=== PATIENT | male | born 1950 | race Caucasian/White ===

== ENCOUNTER → 2017-05-26 10:11 | Outpatient (CLI) | payer MEDICARE, OTHER, SELFPAY ==
[2017-05-26 12:27] LABS: ALB/GLOB Ratio 1.1 RATIO (0.9-2.4); AST(SGOT) 25 U/L (15-37); Alanine Aminotransfer ALT/SGPT 48 U/L (12-78); Albumin, Serum 4.1 g/dL (3.4-5.0); Alkaline Phosphatase 90 U/L (45-117); Anion Gap 8 (5-15); BUN 21 mg/dL (7-18); BUN/Creat Ratio 21.3 RATIO (10-20); Calcium,Total 8.4 mg/dL (8.5-10.1); Chloride 106 mmol/L (98-107); Cholesterol 196 mg/dL (200); Creatinine, Serum 0.98 mg/dL (0.70-1.30); EST Glomerular Filtration Rate 81 mL/min (>60); Est Glom Filt Rate - Afr Amer 98 mL/min (>60); Globulin 3.6 g/dL (2.2-4.2); Glucose 97 mg/dL (70-110); High Density Lipoprotein 41 mg/dL; Potassium 4.1 mmol/L (3.5-5.1); Protein, Total 7.7 g/dL (6.4-8.2); Sodium Level 140 mmol/L (136-145); Triglycerides 81 mg/dL; Very Low Density Lipoprotein 16 mg/dL (5-40)
[2017-05-26 12:28] LABS: Hemoglobin A1c 6.3 % (4.2-6.3)
[2017-05-26 13:22] LABS: Microalbumin,Random Urine 15.2 mg/L (NO RANGE EST.); Microalbumin:Creatinine Ratio 30.5 mg/g CRE (<30 mg/g CRE)
== END ==
PROVIDERS: Visit Provider Family Medicine
DX: E88.81 Metabolic syndrome and other insulin resistance (principal); E78.00 Pure hypercholesterolemia, unspecified; I10 Essential (primary) hypertension
CPT/HCPCS: 36415; 80053; 80061; 82043; 82570; 83036

== ENCOUNTER → 2018-02-17 10:14 | Outpatient (CLI) | payer MEDICARE, SELFPAY ==
[2018-02-17 12:40] LABS: AST(SGOT) 22 U/L (15-37); Alanine Aminotransfer ALT/SGPT 39 U/L (16-61); Albumin, Serum 4.1 g/dL (3.2-5.0); Alkaline Phosphatase 71 U/L (45-117); Anion Gap 7 (5-15); BUN 25 mg/dL (7-18); BUN/Creat Ratio 23.1 RATIO (10-20); Calcium,Total 8.8 mg/dL (8.5-10.1); Chloride 103 mmol/L (98-107); Cholesterol 201 mg/dL (200); Creatinine, Serum 1.08 mg/dL (0.70-1.30); EST Glomerular Filtration Rate 72 mL/min (>60); Est Glom Filt Rate - Afr Amer 87 mL/min (>60); Free T3 3.2 pg/mL (2.18-3.98); Globulin 4.1 g/dL (2.2-4.2); Glucose 96 mg/dL (74-106); High Density Lipoprotein 38 mg/dL; Potassium 4.3 mmol/L (3.5-5.1); Protein, Total 8.2 g/dL (6.4-8.2); Sodium Level 139 mmol/L (136-145); T4 Free Direct 0.76 ng/dL (0.76-1.46); Thyroid Stim Hormone (TSH) 2.51 uIU/mL (0.358-3.74); Triglycerides 111 mg/dL; Very Low Density Lipoprotein 22 mg/dL (5-40)
[2018-02-17 18:18] LABS: PSA,Total - Annual Screen 1.14 ng/mL (0.00-4.00)
== END ==
PROVIDERS: Family Provider Family Medicine; PCP Family Medicine; Visit Provider Family Medicine
DX: E88.81 Metabolic syndrome and other insulin resistance (principal); Z12.5 Encounter for screening for malignant neoplasm of prostate
CPT/HCPCS: 36415; 80053; 80061; 83036; 84153; 84403; 84439; 84443; 84481; G0103

== ENCOUNTER 2018-09-21 09:30 | Outpatient (RCR) | payer MEDICARE, OTHER, SELFPAY ==
--- NOTE | 2018-08-31 16:32 | HP.PTEVAL ---
Patient's Visit Information DONELL HERRMANN is a 67 year old M referred to Physical Therapy by Guilherme Erickson MD with a diagnosis of Left Shoulder Pain. Date of Evaluation: 08/31/18 Physical Therapist: Blanca Olguin DPT - Visit Plan Frequency: 2x /Week Duration: 4 Weeks Plan: Scapular s/s and Ultrasound as needed - Subjective Findings: A couple of years ago he fell on the ice and it got better- a couple of months ago he started his chainsaw and it kicked pretty hard. Now anything out to the side bothers him. Pain is located in the top of the shoulder- radiates into the deltoid- no pain into the neck. Decribes the pain as dull and achy. Agg: moving it out to the side. Worst: 4/10 Best: 0/10 Eases: getting it out of the range. Reaching out the window is the worst. No N/T in the hands. No increase in SHERMAN, blurred vision, dizziness. Does not take pain meds but will take Aleve every once in awhile. Sleep- not disturbed- side sleeper. 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 Left hand dominate. No problems with finger dexterity or antisqueak chalker strength. No imagines- no injection. PMhx: HTN Meds: losartin, niacin, D3, vitamin E - Objective Posture: FH, RS, Increased kyphosis. Gait: no deviation noted- good arm swing and trunk rotation. Palpation: tender along bicipital groove and tip of the acromion. ROM: WFL in all planes but reports pain at end range flexion/abduction, Cervical: Wfl. Strength: Scap: fair minus, Shoulder flexion- 4-/5, Abd: 4-/5 ir: 4+/5, ER:4+/5, Extn: 4+/5 Elbow: 5/5, Store Specialist: equal. Special Test: impingment: positive, empty can: positive. Sensation: wfl - Goals Goal 1:: Patient will be I with HEP and progression Goal Time Frame: 4-6 Weeks Goal 2:: Patient will maintain proper posture t/o tx session to demo increased scap s/s. Goal Time Frame: 4-6 Weeks Goal 3:: Patient will demo full AROM of the left shoulder with 0/10 pain Goal Time Frame: 4-6 Weeks Goal 4:: Patient will report 0/10 for 1 week Goal Time Frame: 4-6 Weeks - Rehabilitation Potential Physical Therapy Diagnosis: Patient presents with hypomobility- he has decreased ROM, strength and muscular endurance leading to poor posture and increased impingment of the left shoulder Rehabilitation Potential: Good - Anticipated Interventions Patient/Client Instruction: Educate patient on: Benefits of Fitness Program Therapeutic Exercise to Include: Strength training, Endurance training, Coordination, Agility training, Body mechanics, Postural training, Passive ROM, Active ROM, Scapular Strength/Stabilization For the Purpose of:: To improve muscle performance and motor function TENS: Yes Cryotherapy (ice pack, ice massage): Yes Thermo therapy (hot pack): Yes Ultrasound (thermal/non thermal): Yes Thank you for the opportunity to evaluate your patient. For Medicare and Medicare HMO plans, please review the plan of care and approve it. It will need to be FAXED BACK to us at [phone] for Medicare purposes. For Medicare only, by signing this I certify the plan of care. Please let me know if there are questions or concerns regarding this plan of care. Physician Signature: Date:
--- NOTE | 2018-09-21 09:21 | HP.PTDCSUM ---
HP - PT D/C Summary It has been my pleasure to treat DONELL HERRMANN under orders from Guliherme Erickson MD, for the diagnosis of Left Shoulder Pain for a total of 7 visit(s). Discharge Date: Please see the following information for a summary of their discharge status. - Subjective Subjective: Patient reports that the shoulder is good- was able to unload a truck of stones with a shovel- still has some discomfort with weather. Was able to reach out to get something out of the drive through and had no pain. - Overall Improvement % Improvement: 100 - Objective Objective/Function: Posture: FH, RS, mild kyphosis. Gait: no deviation noted- good arm swing and trunk rotation. Palpation: not tender. ROM: WFL in all planes, Cervical: Wfl. Strength: Scap: fair minus, Shoulder flexion- 4+/5, Abd: 4+/5 ir: 4+/5, ER:4+/5, Extn: 4+/5 Elbow: 5/5, Certified Lactation Educator: equal. Special Test: impingment: positive, empty can: positive. Sensation: wfl - Goals Goal 1:: Patient will be I with HEP and progression Goal Progress: Goal Met Goal 2:: Patient will maintain proper posture t/o tx session to demo increased scap s/s. Goal Progress: Progressing Goal 3:: Patient will demo full AROM of the left shoulder with 0/10 pain Goal Progress: Goal Met Goal 4:: Patient will report 0/10 for 1 week Goal Progress: Progressing - Plan Plan: Discharge to I HEP - D/C Information If there are questions or concerns regarding this patient's physical therapy, please feel free to call me at [phone]. Thank you for the referral of this patient. Sincerely, Blanca Olguin DPT
== END 2018-09-21 19:00 | disposition home or self-care (01) ==
LOC: PT 09:30
PROVIDERS: Family Provider Family Medicine; PCP Family Medicine; Referring Provider Family Medicine; Visit Provider Family Medicine
DX: S43.402D Unspecified sprain of left shoulder joint, subsequent encounter (principal); M25.512 Pain in left shoulder; M75.102 Unspecified rotator cuff tear or rupture of left shoulder, not specified as traumatic
CPT/HCPCS: 97110; 97161; 97164

== ENCOUNTER → 2018-11-22 09:46 | Outpatient (CLI) | payer MEDICARE, OTHER, SELFPAY ==
[2017-04-06 06:06] VITALS: BMI 35.9
[2018-11-22 12:55] LABS: Hemoglobin A1c 6.7 % (4.2-6.3)
[2018-11-22 13:04] LABS: AST(SGOT) 24 U/L (15-37); Alanine Aminotransfer ALT/SGPT 32 U/L (16-61); Alkaline Phosphatase 56 U/L (45-117); Anion Gap 9 (5-15); BUN 27 mg/dL (7-18); BUN/Creat Ratio 23.3 RATIO (10-20); Calcium,Total 8.6 mg/dL (8.5-10.1); Chloride 104 mmol/L (98-107); Cholesterol 146 mg/dL (200); Creatinine, Serum 1.16 mg/dL (0.70-1.30); EST Glomerular Filtration Rate 66 mL/min (>60); Est Glom Filt Rate - Afr Amer 80 mL/min (>60); Free T3 3.3 pg/mL (2.18-3.98); Globulin 4.1 g/dL (2.2-4.2); Glucose 89 mg/dL (74-106); High Density Lipoprotein 33 mg/dL; Potassium 3.9 mmol/L (3.5-5.1); Protein, Total 8.1 g/dL (6.4-8.2); Sodium Level 140 mmol/L (136-145); T4 Free Direct 0.77 ng/dL (0.76-1.46); Thyroid Stim Hormone (TSH) 2.44 uIU/mL (0.358-3.74); Triglycerides 73 mg/dL; Very Low Density Lipoprotein 15 mg/dL (5-40)
== END ==
PROVIDERS: Family Provider Family Medicine; PCP Family Medicine; Referring Provider Family Medicine; Visit Provider Family Medicine
DX: E78.00 Pure hypercholesterolemia, unspecified (principal); K76.0 Fatty (change of) liver, not elsewhere classified; R73.03 Prediabetes
CPT/HCPCS: 36415; 80053; 80061; 83036; 84439; 84443; 84481

== ENCOUNTER → 2019-02-19 08:49 | Outpatient (CLI) | payer MEDICARE, OTHER, SELFPAY ==
[2017-04-06 06:06] VITALS: BMI 35.9
[2019-02-19 10:27] LABS: PSA,Total - Annual Screen 0.91 ng/mL (0.00-4.00)
[2019-02-19 10:32] LABS: Hemoglobin A1c 6.2 % (4.2-6.3)
== END ==
PROVIDERS: Family Provider Family Medicine; PCP Family Medicine; Referring Provider Family Medicine; Visit Provider Family Medicine
DX: Z12.5 Encounter for screening for malignant neoplasm of prostate (principal); K76.0 Fatty (change of) liver, not elsewhere classified
CPT/HCPCS: 36415; 83036; 84153; G0103

== ENCOUNTER → 2019-09-27 07:38 | Outpatient (CLI) | payer MEDICARE, OTHER, SELFPAY ==
[2017-04-06 06:06] VITALS: BMI 35.9
[2019-09-27 10:22] LABS: Hemoglobin A1c 6.2 % (3.8-5.6)
[2019-09-27 10:25] LABS: Albumin, Serum 3.8 g/dL (3.2-5.0); BUN 34 mg/dL (7-18); BUN/Creat Ratio 28.8 RATIO (10-20); Creatinine, Serum 1.18 mg/dL (0.70-1.30); EST Glomerular Filtration Rate 65 mL/min (>60); Est Glom Filt Rate - Afr Amer 79 mL/min (>60); Globulin 5.4 g/dL (2.2-4.2); Glucose 101 mg/dL (74-106); Protein, Total 9.2 g/dL (6.4-8.2)
[2019-09-27 10:26] LABS: ALB/GLOB Ratio 0.7 RATIO (0.9-2.4); AST(SGOT) 24 U/L (15-37); Alanine Aminotransfer ALT/SGPT 26 U/L (16-61); Alkaline Phosphatase 51 U/L (45-117); Anion Gap 5 (5-15); Calcium,Total 8.6 mg/dL (8.5-10.1); Chloride 104 mmol/L (98-107); Cholesterol 171 mg/dL (200); High Density Lipoprotein 34 mg/dL; Microalbumin,Random Urine 14.9 mg/L (NO RANGE EST.); Microalbumin:Creatinine Ratio 14.2 mg/g CRE (<30 mg/g CRE); Potassium 3.6 mmol/L (3.5-5.1); Sodium Level 137 mmol/L (136-145); Thyroid Stim Hormone (TSH) 4.17 uIU/mL (0.358-3.74); Triglycerides 113 mg/dL; Very Low Density Lipoprotein 23 mg/dL (5-40)
== END ==
PROVIDERS: PCP Family Medicine; Referring Provider Family Medicine; Visit Provider Family Medicine
DX: E88.81 Metabolic syndrome and other insulin resistance (principal); I10 Essential (primary) hypertension
CPT/HCPCS: 36415; 80053; 80061; 82043; 82570; 83036; 84443

== ENCOUNTER → 2020-03-25 08:53 | Outpatient (CLI) | payer MEDICARE, OTHER, SELFPAY ==
[2017-04-06 06:06] VITALS: BMI 35.9
[2020-03-25 10:21] LABS: Absolute Lymphocyte Count 1.46 X10^3/uL (0.83-4.51); Absolute Neutrophil Count 4.7 X10^3/uL (2.0-7.7); Basophil# 0.02 X10^3/uL; Basophil% 0.3 % (0-1); Eosinophils% 2.7 % (0-5); Hematocrit 42.5 % (40-54); Hemoglobin 13.4 g/dL (13.0-16.5); Lymphocyte # 1.46 X10^3/ul (4.0); Lymphocyte % 19.5 % (19-41); Mean Corp Hgb Conc 31.5 g/dL (32-36); Mean Corpuscular Volume 98.4 fL (80-94); Mean Platelet Vol. 10.9 fl (6.2-12.0); Monocyte# 1.05 X10^3/uL; NRBC Flagged by Analyzer 0 % (0-5); Neutrophil # 4.72 X10^3/uL (2.7-7.7); Neutrophil % 63.1 % (47-70); Platelet Count 238 K/mm3 (150-450); RBC Distribution Width CV 14.2 % (11.6-14.6); RBC Distribution Width SD 51.3 fl (35.1-43.9); Red Blood Count 4.32 M/mm3 (4.6-6.2); White Blood Count 7.5 K/mm3 (4.4-11.0)
[2020-03-25 10:55] LABS: T4 Free Direct 0.81 ng/dL (0.76-1.46); Thyroid Stim Hormone (TSH) 4.85 uIU/mL (0.358-3.74)
== END ==
PROVIDERS: PCP Family Medicine; Referring Provider Family Medicine; Visit Provider Family Medicine
DX: E88.81 Metabolic syndrome and other insulin resistance (principal); R79.89 Other specified abnormal findings of blood chemistry
CPT/HCPCS: 36415; 84439; 84443; 84481; 85025

== ENCOUNTER → 2020-04-04 10:43 | Outpatient (CLI) | payer MEDICARE, OTHER, SELFPAY ==
[2017-04-06 06:06] VITALS: BMI 35.9
[2020-04-04 13:01] LABS: PSA,Total - Annual Screen 1.14 ng/mL (0.00-4.00)
== END ==
PROVIDERS: PCP Family Medicine; Referring Provider Family Medicine; Visit Provider Family Medicine
DX: Z12.5 Encounter for screening for malignant neoplasm of prostate (principal)
CPT/HCPCS: 36415; 84153; G0103

== ENCOUNTER → 2020-07-07 10:20 | Outpatient (CLI) | payer BC, SELFPAY ==
[2020-07-07 13:07] LABS: Free T3 2.7 pg/mL (2.18-3.98); T4 Free Direct 0.83 ng/dL (0.76-1.46); Thyroid Stim Hormone (TSH) 3.28 uIU/mL (0.358-3.74)
== END ==
PROVIDERS: PCP Family Medicine; Referring Provider Family Medicine; Visit Provider Family Medicine
DX: R79.89 Other specified abnormal findings of blood chemistry (principal)
CPT/HCPCS: 36415; 84439; 84443; 84481

== ENCOUNTER → 2020-10-02 08:28 | Outpatient (CLI) | payer BC, SELFPAY ==
[2017-04-06 06:06] VITALS: BMI 35.9
[2020-10-02 10:26] LABS: Absolute Lymphocyte Count 1.39 X10^3/uL (0.83-4.51); Absolute Neutrophil Count 4.4 X10^3/uL (2.0-7.7); Basophil# 0.02 X10^3/uL; Basophil% 0.3 % (0-1); Eosinophil# 0.17 X10^3/uL; Eosinophils% 2.5 % (0-5); Hematocrit 42.4 % (40-54); Hemoglobin 13.4 g/dL (13.0-16.5); Lymphocyte # 1.39 X10^3/ul (0.83-4.51); Lymphocyte % 20.4 % (19-41); Mean Corp Hgb Conc 31.6 g/dL (32-36); Mean Corpuscular Hgb 31.2 pg (27.0-32.0); Mean Corpuscular Volume 98.8 fL (80-94); Mean Platelet Vol. 11.5 fl (6.2-12.0); Monocyte# 0.82 X10^3/uL; Monocyte% 12.1 % (0-10); NRBC Flagged by Analyzer 0 % (0-5); Neutrophil # 4.37 X10^3/uL (2.7-7.7); Neutrophil % 64.3 % (47-70); Platelet Count 186 K/mm3 (150-450); RBC Distribution Width CV 14.6 % (11.6-14.6); RBC Distribution Width SD 52.8 fl (35.1-43.9); Red Blood Count 4.29 M/mm3 (4.6-6.2); White Blood Count 6.8 K/mm3 (4.4-11.0)
[2020-10-02 10:47] LABS: Microalbumin:Creatinine Ratio 19.3 mg/g CRE (<30 mg/g CRE)
[2020-10-02 11:00] LABS: ALB/GLOB Ratio 0.8 RATIO (0.9-2.4); AST(SGOT) 26 U/L (15-37); Alanine Aminotransfer ALT/SGPT 33 U/L (16-61); Alkaline Phosphatase 52 U/L (45-117); Anion Gap 7 (5-15); BUN 31 mg/dL (7-18); BUN/Creat Ratio 27.4 RATIO (10-20); Calcium,Total 8.5 mg/dL (8.5-10.1); Chloride 103 mmol/L (98-107); Cholesterol 152 mg/dL (200); Creatinine, Serum 1.13 mg/dL (0.70-1.30); EST Glomerular Filtration Rate 68 mL/min (>60); Est Glom Filt Rate - Afr Amer 82 mL/min (>60); Free T3 2.8 pg/mL (2.18-3.98); Globulin 4.8 g/dL (2.2-4.2); Glucose 99 mg/dL (74-106); High Density Lipoprotein 34 mg/dL; Potassium 3.7 mmol/L (3.5-5.1); Protein, Total 8.8 g/dL (6.4-8.2); Sodium Level 135 mmol/L (136-145); T4 Free Direct 0.67 ng/dL (0.76-1.46); Thyroid Stim Hormone (TSH) 3.21 uIU/mL (0.358-3.74); Triglycerides 93 mg/dL; Very Low Density Lipoprotein 19 mg/dL (5-40)
[2020-10-02 11:06] LABS: Hemoglobin A1c 6.3 % (3.8-5.6)
== END ==
PROVIDERS: PCP Family Medicine; Referring Provider Family Medicine; Visit Provider Family Medicine
DX: K76.0 Fatty (change of) liver, not elsewhere classified (principal); E88.81 Metabolic syndrome and other insulin resistance; I10 Essential (primary) hypertension; R79.89 Other specified abnormal findings of blood chemistry
CPT/HCPCS: 36415; 80053; 80061; 82043; 82570; 83036; 84439; 84443; 84481; 85025

== ENCOUNTER → 2021-04-02 08:55 | Outpatient (CLI) | payer BC, SELFPAY ==
[2021-04-02 10:19] LABS: Absolute Neutrophil Count 4.8 X10^3/uL (2.0-7.7); Basophil# 0.03 X10^3/uL; Basophil% 0.4 % (0-1); Eosinophil# 0.15 X10^3/uL; Eosinophils% 2.1 % (0-5); Hematocrit 41.5 % (40-54); Hemoglobin 13.8 g/dL (13.0-16.5); Lymphocyte % 18.1 % (19-41); Mean Corp Hgb Conc 33.3 g/dL (32-36); Mean Corpuscular Hgb 31.8 pg (27.0-32.0); Mean Corpuscular Volume 95.6 fL (80-94); Mean Platelet Vol. 10.9 fl (6.2-12.0); Monocyte# 0.84 X10^3/uL; Monocyte% 11.7 % (0-10); NRBC Flagged by Analyzer 0 % (0-5); Neutrophil # 4.82 X10^3/uL (2.7-7.7); Neutrophil % 67.3 % (47-70); Platelet Count 212 K/mm3 (150-450); RBC Distribution Width SD 49.3 fl (35.1-43.9); Red Blood Count 4.34 M/mm3 (4.6-6.2); White Blood Count 7.2 K/mm3 (4.4-11.0)
[2021-04-02 11:07] LABS: ALB/GLOB Ratio 0.8 RATIO (0.9-2.4); AST(SGOT) 24 U/L (15-37); Alanine Aminotransfer ALT/SGPT 33 U/L (16-61); Albumin, Serum 3.9 g/dL (3.2-5.0); Alkaline Phosphatase 52 U/L (45-117); Anion Gap 6 (5-15); BUN 26 mg/dL (7-18); BUN/Creat Ratio 21.1 RATIO (10-20); Calcium,Total 8.8 mg/dL (8.5-10.1); Chloride 103 mmol/L (98-107); Creatinine, Serum 1.23 mg/dL (0.70-1.30); EST Glomerular Filtration Rate 62 mL/min (>60); Est Glom Filt Rate - Afr Amer 75 mL/min (>60); Globulin 4.7 g/dL (2.2-4.2); Glucose 99 mg/dL (74-106); Potassium 3.6 mmol/L (3.5-5.1); Protein, Total 8.6 g/dL (6.4-8.2); Sodium Level 136 mmol/L (136-145); T4 Free Direct 0.77 ng/dL (0.76-1.46); Thyroid Stim Hormone (TSH) 4.48 uIU/mL (0.358-3.74)
[2021-04-07 14:50] LABS: Hemoglobin A1c 6.2 % (3.8-5.6)
== END ==
PROVIDERS: PCP Family Medicine; Referring Provider Family Medicine; Visit Provider Family Medicine
DX: R79.89 Other specified abnormal findings of blood chemistry (principal); K76.0 Fatty (change of) liver, not elsewhere classified
CPT/HCPCS: 36415; 80053; 83036; 84439; 84443; 85025

== ENCOUNTER 2021-04-13 11:07 | Outpatient (CLI) | payer BC, SELFPAY ==
[2021-04-13 13:00] LABS: PSA,Total - Annual Screen 1.24 ng/mL (0.00-4.00)
== END 2021-04-13 23:59 | disposition home or self-care (01) ==
PROVIDERS: PCP Family Medicine; Visit Provider Family Medicine
DX: Z00.00 Encounter for general adult medical examination without abnormal findings (principal)
CPT/HCPCS: 36415; 84153; G0103

== ENCOUNTER 2021-05-25 08:53 | Outpatient (CLI) | payer BC, SELFPAY ==
[2021-05-25 10:56] LABS: ALB/GLOB Ratio 0.8 RATIO (0.9-2.4); AST(SGOT) 27 U/L (15-37); Alanine Aminotransfer ALT/SGPT 35 U/L (16-61); Alkaline Phosphatase 57 U/L (45-117); Anion Gap 8 (5-15); BUN 30 mg/dL (7-18); BUN/Creat Ratio 23.1 RATIO (10-20); Calcium,Total 9.1 mg/dL (8.5-10.1); Chloride 105 mmol/L (98-107); EST Glomerular Filtration Rate 58 mL/min (>60); Est Glom Filt Rate - Afr Amer 70 mL/min (>60); Glucose 94 mg/dL (74-106); Potassium 3.8 mmol/L (3.5-5.1); Sodium Level 137 mmol/L (136-145); T4 Free Direct 0.85 ng/dL (0.76-1.46); Thyroid Stim Hormone (TSH) 3.64 uIU/mL (0.358-3.74)
== END 2021-05-25 23:59 | disposition short-term general hospital (02) ==
LOC: MFPLAB 08:56
PROVIDERS: PCP Family Medicine; Visit Provider Family Medicine
DX: E88.81 Metabolic syndrome and other insulin resistance (principal); E03.9 Hypothyroidism, unspecified
CPT/HCPCS: 36415; 80053; 84439; 84443

== ENCOUNTER 2021-08-11 10:06 | Outpatient (CLI) | payer BC, SELFPAY ==
[2021-08-11 12:06] LABS: Absolute Neutrophil Count 4.8 X10^3/uL (2.0-7.7); Basophil# 0.02 X10^3/uL; Basophil% 0.3 % (0-1); Eosinophil# 0.14 X10^3/uL; Hematocrit 41.1 % (40-54); Hemoglobin 13.6 g/dL (13.0-16.5); Lymphocyte % 18.7 % (19-41); Mean Corp Hgb Conc 33.1 g/dL (32-36); Mean Corpuscular Hgb 31.6 pg (27.0-32.0); Mean Corpuscular Volume 95.6 fL (80-94); Monocyte# 0.73 X10^3/uL; Monocyte% 10.5 % (0-10); NRBC Flagged by Analyzer 0 % (0-5); Neutrophil # 4.75 X10^3/uL (2.7-7.7); Neutrophil % 68.2 % (47-70); Platelet Count 245 K/mm3 (150-450); RBC Distribution Width CV 13.3 % (11.6-14.6); RBC Distribution Width SD 47.3 fl (35.1-43.9)
[2021-08-11 12:31] LABS: ALB/GLOB Ratio 0.9 RATIO (0.9-2.4); AST(SGOT) 25 U/L (15-37); Alanine Aminotransfer ALT/SGPT 35 U/L (16-61); Albumin, Serum 4.1 g/dL (3.2-5.0); Alkaline Phosphatase 55 U/L (45-117); Anion Gap 7 (5-15); BUN 35 mg/dL (7-18); BUN/Creat Ratio 26.7 RATIO (10-20); CRP 5.61 mg/L (0.0-3.0); Calcium,Total 8.6 mg/dL (8.5-10.1); Chloride 102 mmol/L (98-107); Creatinine, Serum 1.31 mg/dL (0.70-1.30); EST Glomerular Filtration Rate 57 mL/min (>60); Est Glom Filt Rate - Afr Amer 69 mL/min (>60); Globulin 4.8 g/dL (2.2-4.2); Glucose 102 mg/dL (74-106); Potassium 3.7 mmol/L (3.5-5.1); Protein, Total 8.9 g/dL (6.4-8.2); Sodium Level 136 mmol/L (136-145)
[2021-08-13 13:08] LABS: PROEL- A/G Ratio 0.9 (0.7-1.7); PROEL- Albumin 4.1 g/dL (2.9-4.4); PROEL- Alpha-1 Globulin 0.2 g/dL (0.0-0.4); PROEL- Beta Globulin 1.2 g/dL (0.7-1.3); PROEL- Gamma Globulin 2.2 g/dL (0.4-1.8); PROEL- Globulin, Total 4.6 g/dL (2.2-3.9); PROEL- TOTAL PROTEIN 8.7 g/dL (6.0-8.5); PROELU- Albumin, Urine 37.5 % (.); PROELU- Alpha-1-Globulin,Ur 1.9 % (.); PROELU- Alpha-2-Globulin,Ur 11.9 % (.); PROELU- Beta Globulin, Ur 20.2 % (.); PROELU- Gamma Globulin, Ur 28.5 % (.); Total Protein, Ur 5.7 mg/dL (Not Estab.)
[2021-08-20 16:09] LABS: ANTINUCLEAR ANTIBODIES DIRECT Positive (Negative); Alternaria tenuis <0.10 kU/L (Class 0); Aspergillus fumigatus <0.10 kU/L (Class 0); Bermuda Grass <0.10 kU/L (Class 0); Cat Hair / Dander,Stand <0.10 kU/L (Class 0); Cladosporium herbarum <0.10 kU/L (Class 0); Cockroach, American <0.10 kU/L (Class 0); D farinae Mite <0.10 kU/L (Class 0); D pteronyssinus <0.10 kU/L (Class 0); Dog Epithelia <0.10 kU/L (Class 0); Immunoglobulin E 58 IU/mL (6-495); Mouse Urine <0.10 kU/L (Class 0); Ragweed, Short/Common <0.10 kU/L (Class 0); Timothy Grass <0.10 kU/L (Class 0)
== END 2021-08-11 23:59 | disposition home or self-care (01) ==
LOC: MFPLAB 10:06
PROVIDERS: PCP Family Medicine; Referring Provider Family Medicine; Visit Provider Family Medicine
DX: R05.3 Chronic cough (principal)
CPT/HCPCS: 36415; 80053; 82785; 84165; 84166; 85025; 86003; 86038; 86140; 86431

== ENCOUNTER → 2021-08-20 | Outpatient (CLI) | payer BC, SELFPAY ==
--- NOTE | 2021-08-20 14:20 | CT_ITS ---
STUDY: CT Chest W/O Contrast Injection 08/20/2021 3:24 PM REASON FOR EXAM: Male, 70 years old. chronic cough, recurrent sinusitis Individualized dose optimization techniques were used for this CT. TECHNIQUE: Transaxial imaging was performed withoutIV contrast material. COMPARISON: None. FINDINGS: There are degenerative changes of the shoulders. There is no pneumothorax. There is no demonstrated pleural abnormality. There are calcifications of the coronary arteries. Normal mediastinum. Normal hilar regions. Normal pulmonary arteries. There is atherosclerotic calcification of the aortic arch with tortuosity and elongation of the aortic arch and descending thoracic aorta. There are multi-level degenerative changes of the thoracic spine. There is diffuse fatty infiltration of the liver. 3.7 cm hypodensity in the left lobe of the liver. CT/Chest without Contrast IMPRESSION: There are no acute findings of the chest. There is diffuse fatty infiltration of the liver. 3.7 cm hypodensity in the left lobe of the liver. Recommend hepatic MR. Electronically Signed: Ronnie Prado MD at 15:27 EDT ,
--- NOTE | 2021-08-20 14:20 | CT_ITS ---
EXAM: CT MAXILLOFACIAL SINUSES WITHOUT INTRAVENOUS CONTRAST CLINICAL INDICATION: chronic cough, recurrant bronchitis TECHNIQUE: Helically acquired images were obtained of the maxillofacial sinuses without intravenous contrast. This CT exam was performed using one or more of the following dose reduction techniques: automated exposure control, adjustment of the mA and/or kV according to patient size, and/or use of iterative reconstruction technique. This report was created using [employer] report generation technology. RADIATION DOSE: CTDIvol = 28.14 mGy, DLP = 1281.32 mGy-cm COMPARISON: None. FINDINGS: MAXILLARY SINUSES: Maxillary sinus disease. Sphenoid sinus disease. Mild frontal sinus disease. Mild ethmoid sinus disease. Ostiomeatal complexes are normally formed. SPHENOID SINUSES: See above. FRONTAL SINUSES: See above. ETHMOID AIR CELLS: See above. NASAL CAVITY/SEPTUM: Nasal septum is midline. Nasal turbinates are unremarkable. BONES/JOINTS: Anterior cranial fossa is unremarkable. ORBITS: Unremarkable. DENTAL: Unremarkable as visualized. No periodontal osseous erosion. CT/Sinus/Facial Bone IMPRESSION: Maxillary sinus disease. Sphenoid sinus disease. Mild frontal sinus disease. Mild ethmoid sinus disease. Electronically Signed: Ronnie Prado MD at 15:25 EDT ,
== END | disposition home or self-care (01) ==
PROVIDERS: PCP Family Medicine; Referring Provider Family Medicine; Visit Provider Family Medicine
DX: R05.3 Chronic cough (principal); J32.9 Chronic sinusitis, unspecified
CPT/HCPCS: 70486; 71250

== ENCOUNTER → 2021-08-24 | Outpatient (CLI) | payer BC, SELFPAY ==
[2021-08-26 13:08] LABS: Anti-Centromere B Ab <0.2 AI (0.0-0.9); Anti-Chromatin 0.3 AI (0.0-0.9); Anti-Jo <0.2 AI (0.0-0.9); Anti-Scleroderma-70 AB <0.2 AI (0.0-0.9); RNP Ab 0.4 AI (0.0-0.9); SJOGREN'S Anti-SS-A test > 8.0 AI (0.0-0.9); SJOGREN'S Anti-SS-B test > 8.0 AI (0.0-0.9); Smith Ab 0.4 AI (0.0-0.9)
[2021-08-26 19:24] LABS: Anti-dsDNA Ab 5 IU/mL (0-9)
== END | disposition home or self-care (01) ==
LOC: MFPLAB 11:41
PROVIDERS: PCP Family Medicine; Visit Provider Family Medicine
DX: R05.3 Chronic cough (principal)
CPT/HCPCS: 36415; 86225; 86235

== ENCOUNTER → 2021-08-25 | Outpatient (CLI) | payer BC, SELFPAY ==
--- NOTE | 2021-08-25 12:41 | PFTCOMP ---
COMPLETE PULMONARY FUNCTION TEST INTERPRETATION Brief HPI: Patient is a 70 year old male, currently under the care of Dr. Erickson, who presents to [facility] for complete pulmonary function tests secondary to diagnosis of chronic cough. Respiratory therapist reports good effort and reproducible results. Interpretation: Forced expiration spirometry shows no large airways obstructive ventilatory defect with an FEV1 of 125% predicted. There is no significant bronchodilator response by strict ATS criteria. Spirograms are of good quality and plateau normally. The respiratory flow volume loop shows a normal pattern. Lung volumes by body plethysmography show a normal total lung capacity at 5.79 L, 114% predicted. All other lung volumes are within normal limits. Diffusion capacity by carbon monoxide is at the upper limit of normal at 129% predicted. The airway resistance is normal. No previous pulmonary function tests were available for review. Impression: These pulmonary function tests are within normal limits. Consider bronchoprovocation study if asthma is a consideration.
== END | disposition home or self-care (01) ==
LOC: PSN 09:31
PROVIDERS: PCP Family Medicine; Referring Provider Family Medicine; Visit Provider Family Medicine
DX: R05.3 Chronic cough (principal)
CPT/HCPCS: 94060; 94726; 94729

== ENCOUNTER → 2021-09-08 | Outpatient (CLI) | payer BC, SELFPAY ==
--- NOTE | 2021-09-08 15:27 | MRI_ITS ---
ACR Level 3 findings have been noted. An addendum which confirms receipt of the report will follow. EXAM: MR ABDOMEN WITHOUT AND WITH INTRAVENOUS CONTRAST CLINICAL INDICATION: abnormal ct of liver TECHNIQUE: Multiplanar and multisequence MR images of the abdomen without and with intravenous contrast. This report was created using [employer] report generation technology. CONTRAST: 19ML Dotarem via IV COMPARISON: CT 08/20/2021 FINDINGS: Nonenhancing 3.6 x 2.8 cm lobulated lesion involving the left lobe of the liver is compatible with simple cyst. There appears to be adjacent smaller simple cyst with similar signal characteristics measuring 1.6 cm. A few other scattered tiny punctate nonenhancing foci most likely represent additional cysts of the liver. Incompletely imaged 2.5 cm lesion involving the posterior aspect of the right kidney at approximately the interpolar to lower pole level. The caudal extent of this lesion is not imaged. Also the appearance on the postcontrast images is not compatible with simple cyst with the possibility of enhancement not excluded. Couple of small nonenhancing cystic lesions at the posterior aspect of the left kidney. No ascites. No adenopathy. Lung bases are clear. Aorta is unremarkable. No hollow viscus pathology. Bones are unremarkable for age other than note of mild multilevel degenerative spine changes. MRI/MRI Abd WITH and W/O Contrast IMPRESSION: 1. Lesion in question involving the left lobe of the liver represents a simple cyst. No additional follow-up or workup is needed. 2. Incompletely imaged 2.5 cm lesion involving the posterior aspect of the right kidney at approximately the interpolar to lower pole level. The caudal extent of this lesion is not imaged. Also the appearance on the postcontrast images is not compatible with simple cyst with the possibility of enhancement not excluded. Therefore, recommend dedicated renal MRI for further investigation. 3. Other incidental findings as above. Electronically Signed: Navjot Rondon MD at 16:58 EDT ,
== END | disposition home or self-care (01) ==
LOC: MRI 15:23
PROVIDERS: PCP Family Medicine; Visit Provider Family Medicine
DX: R93.2 Abnormal findings on diagnostic imaging of liver and biliary tract (principal)
CPT/HCPCS: 74183; A9575; A4216

== ENCOUNTER → 2021-09-24 | Outpatient (CLI) | payer BC, SELFPAY ==
--- NOTE | 2021-09-24 08:19 | MRI_ITS ---
STUDY: MRI ABDOMEN WITH AND WITHOUT CONTRAST REASON FOR EXAM: Male, 70 years old. KIDNEY MASS TECHNIQUE: Standardized fat and water weighted pulse sequences were obtained in all 3 orthogonal planes post contrast administration. IV DOTAREM 19mL was administered for the contrast portion of the examination. COMPARISON: 09/08/2021 FINDINGS: The visualized lung bases are unremarkable. The visualized portions of the heart are within normal limits. Incomplete visualization of the liver. Normal gallbladder and extrahepatic biliary system. Nonvisualization of the spleen. Normal pancreas. Normal bilateral adrenal glands. 3 cm round fluid intensity mass without contrast-enhancement in the posterior mid section of the right kidney consistent with a cyst. 2 small subcentimeter cyst in the midsection of left kidney. Normal visualized stomach. Normal small intestine. Normal colon. There is non-visualization of the appendix. Normal abdominal aorta. Normal inferior vena cava. Normal retroperitoneum. Normal abdominal wall. Normal osseous structures. MRI/MRI Abd WITH and W/O Contrast IMPRESSION: MRI confirms a 3 cm simple cyst in the midsection of the right kidney. Electronically Signed: Rancho Nuñez MD at 11:57 EDT ,
[2021-09-24 08:36] LABS: CREATININE FINGERSTICK 1.1 mg/dL (0.70-1.30); EGFR FINGERSTICK > 60.0000 mL/min (>60)
== END | disposition home or self-care (01) ==
PROVIDERS: PCP Family Medicine; Referring Provider Family Medicine; Visit Provider Family Medicine
DX: N28.1 Cyst of kidney, acquired (principal)
CPT/HCPCS: 74183; A9575

== ENCOUNTER → 2021-10-01 | Outpatient (CLI) | payer MEDICARE, SELFPAY ==
[2021-10-01 12:24] LABS: Absolute Lymphocyte Count 1.33 X10^3/uL (0.83-4.51); Absolute Neutrophil Count 4.2 X10^3/uL (2.0-7.7); Basophil# 0.01 X10^3/uL; Basophil% 0.1 % (0-1); Eosinophil# 0.17 X10^3/uL; Eosinophils% 2.5 % (0-5); Hematocrit 40.8 % (40-54); Hemoglobin 13.2 g/dL (13.0-16.5); Lymphocyte # 1.33 X10^3/ul (0.83-4.51); Lymphocyte % 19.7 % (19-41); Mean Corp Hgb Conc 32.4 g/dL (32-36); Mean Corpuscular Hgb 31.1 pg (27.0-32.0); Mean Corpuscular Volume 96.2 fL (80-94); Mean Platelet Vol. 11.2 fl (6.2-12.0); Monocyte# 1.01 X10^3/uL; Monocyte% 14.9 % (0-10); NRBC Flagged by Analyzer 0 % (0-5); Neutrophil # 4.22 X10^3/uL (2.7-7.7); Neutrophil % 62.5 % (47-70); Platelet Count 219 K/mm3 (150-450); RBC Distribution Width CV 14.3 % (11.6-14.6); RBC Distribution Width SD 50.1 fl (35.1-43.9); Red Blood Count 4.24 M/mm3 (4.6-6.2); White Blood Count 6.8 K/mm3 (4.4-11.0)
[2021-10-01 12:53] LABS: ALB/GLOB Ratio 0.9 RATIO (0.9-2.4); AST(SGOT) 28 U/L (15-37); Alanine Aminotransfer ALT/SGPT 40 U/L (16-61); Alkaline Phosphatase 54 U/L (45-117); Anion Gap 5 (5-15); BUN 34 mg/dL (7-18); BUN/Creat Ratio 26.2 RATIO (10-20); Calcium,Total 8.9 mg/dL (8.5-10.1); Chloride 102 mmol/L (98-107); EST Glomerular Filtration Rate 58 mL/min (>60); Est Glom Filt Rate - Afr Amer 70 mL/min (>60); Globulin 4.7 g/dL (2.2-4.2); Glucose 93 mg/dL (74-106); Potassium 3.8 mmol/L (3.5-5.1); Protein, Total 8.7 g/dL (6.4-8.2); Sodium Level 135 mmol/L (136-145)
[2021-10-02 14:10] LABS: Anti-Centromere B Ab <0.2 AI (0.0-0.9); Anti-Chromatin 0.2 AI (0.0-0.9); Anti-Jo <0.2 AI (0.0-0.9); Anti-Scleroderma-70 AB <0.2 AI (0.0-0.9); RNP Ab 0.3 AI (0.0-0.9); SJOGREN'S Anti-SS-A test > 8.0 AI (0.0-0.9); SJOGREN'S Anti-SS-B test > 8.0 AI (0.0-0.9); Smith Ab 0.4 AI (0.0-0.9)
[2021-10-02 16:41] LABS: Anti-dsDNA Ab 6 IU/mL (0-9)
== END | disposition home or self-care (01) ==
PROVIDERS: PCP Family Medicine; Referring Provider Family Medicine; Visit Provider Family Medicine
DX: N18.2 Chronic kidney disease, stage 2 (mild) (principal); R76.8 Other specified abnormal immunological findings in serum
CPT/HCPCS: 36415; 80053; 85025; 86225; 86235; 86431

== ENCOUNTER → 2021-10-26 | Outpatient (CLI) | payer MEDICARE, SELFPAY ==
--- NOTE | 2021-10-26 10:03 | RAD_ITS ---
STUDY: XR Pelvis 1 or 2 Views 10/26/2021 10:08 AM REASON FOR EXAM: Male, 71 years old. SEROPOSITIVE RHEUMATOID ARTHRITIS TECHNIQUE: XR Pelvis 1 or 2 Views COMPARISON: None FINDINGS: There is a non-specific bowel gas pattern. Normal visualized soft tissue structures. Normal bilateral iliac wings, sacroiliac joints and visualized sacrum. Normal visualized bilateral superior and inferior pubic rami. Normal pubic symphysis. Normal ischial tuberosities. There are osteoarthritic changes of the right femoral head with marginal osteophyte formation. There is osteoarthritic spur formation of the right acetabular rim. There is mild articular joint space narrowing of the right hip. There are osteoarthritic changes of the left femoral head with marginal osteophyte formation. There is osteoarthritic spur formation of the left acetabular rim. There is mild articular joint space narrowing of the left hip. RAD/Pelvis 1 or 2 Views IMPRESSION: Degenerative findings of the hips. Electronically Signed: Ronnie Prado MD at 16:49 EDT ,
[2021-10-26 12:38] LABS: Erythrocyte Sedimentation Rate 38 mm/hr (0-20)
[2021-10-26 12:41] LABS: Absolute Lymphocyte Count 1.57 X10^3/uL (0.83-4.51); Absolute Neutrophil Count 5.4 X10^3/uL (2.0-7.7); Basophil# 0.02 X10^3/uL; Basophil% 0.3 % (0-1); Eosinophil# 0.16 X10^3/uL; Hematocrit 41.2 % (40-54); Hemoglobin 13.6 g/dL (13.0-16.5); Lymphocyte # 1.57 X10^3/ul (0.83-4.51); Mean Corpuscular Hgb 31.7 pg (27.0-32.0); Mean Platelet Vol. 11.4 fl (6.2-12.0); Monocyte# 0.65 X10^3/uL; Monocyte% 8.3 % (0-10); NRBC Flagged by Analyzer 0 % (0-5); Neutrophil # 5.43 X10^3/uL (2.7-7.7); Neutrophil % 69.1 % (47-70); Platelet Count 217 K/mm3 (150-450); RBC Distribution Width CV 14.3 % (11.6-14.6); RBC Distribution Width SD 50.4 fl (35.1-43.9); Red Blood Count 4.29 M/mm3 (4.6-6.2); White Blood Count 7.9 K/mm3 (4.4-11.0)
[2021-10-26 12:56] LABS: ALB/GLOB Ratio 0.8 RATIO (0.9-2.4); AST(SGOT) 27 U/L (15-37); Alanine Aminotransfer ALT/SGPT 32 U/L (16-61); Albumin, Serum 3.9 g/dL (3.2-5.0); Alkaline Phosphatase 57 U/L (45-117); Anion Gap 9 (5-15); BUN 28 mg/dL (7-18); BUN/Creat Ratio 21.5 RATIO (10-20); CRP 3.66 mg/L (0.0-3.0); Calcium,Total 8.8 mg/dL (8.5-10.1); Chloride 101 mmol/L (98-107); EST Glomerular Filtration Rate 58 mL/min (>60); Est Glom Filt Rate - Afr Amer 70 mL/min (>60); Globulin 4.8 g/dL (2.2-4.2); Glucose 122 mg/dL (74-106); Potassium 3.4 mmol/L (3.5-5.1); Protein, Total 8.7 g/dL (6.4-8.2); Sodium Level 138 mmol/L (136-145)
[2021-10-26 13:34] LABS: Hepatitis B Surface Antibody Reactive; Hepatitis B Surface Antigen Non-Reactive (Nonreactive); Hepatitis C Antibody Non-Reactive (Nonreactive)
[2021-10-29 16:46] LABS: CCP IgG Antibodies 7 units (0-19)
== END | disposition home or self-care (01) ==
PROVIDERS: PCP Family Medicine; Referring Provider Internal Medicine Rheumatology; Visit Provider Internal Medicine Rheumatology
DX: M05.79 Rheumatoid arthritis with rheumatoid factor of multiple sites without organ or systems involvement (principal); M16.0 Bilateral primary osteoarthritis of hip; K76.0 Fatty (change of) liver, not elsewhere classified; I10 Essential (primary) hypertension; E78.5 Hyperlipidemia, unspecified; E03.9 Hypothyroidism, unspecified; M21.41 Flat foot [pes planus] (acquired), right foot; M21.42 Flat foot [pes planus] (acquired), left foot
CPT/HCPCS: 36415; 72170; 80053; 85025; 85652; 86140; 86200; 86706; 86803; 87340

== ENCOUNTER → 2022-02-04 | Outpatient (CLI) | payer MEDICARE, SELFPAY ==
[2022-02-04 15:26] LABS: Absolute Lymphocyte Count 1.32 X10^3/uL (0.83-4.51); Absolute Neutrophil Count 4.2 X10^3/uL (2.0-7.7); Basophil# 0.02 X10^3/uL; Basophil% 0.3 % (0-1); Eosinophil# 0.13 X10^3/uL; Hematocrit 40.9 % (40-54); Hemoglobin 13.1 g/dL (13.0-16.5); Lymphocyte # 1.32 X10^3/ul (0.83-4.51); Lymphocyte % 19.9 % (19-41); Mean Corpuscular Hgb 31.6 pg (27.0-32.0); Mean Corpuscular Volume 98.8 fL (80-94); Mean Platelet Vol. 11.3 fl (6.2-12.0); Monocyte# 0.94 X10^3/uL; Monocyte% 14.2 % (0-10); NRBC Flagged by Analyzer 0 % (0-5); Neutrophil % 63.1 % (47-70); Platelet Count 211 K/mm3 (150-450); RBC Distribution Width CV 14.6 % (11.6-14.6); Red Blood Count 4.14 M/mm3 (4.6-6.2); White Blood Count 6.6 K/mm3 (4.4-11.0)
[2022-02-04 15:44] LABS: Erythrocyte Sedimentation Rate 38 mm/hr (0-20)
[2022-02-04 15:47] LABS: ALB/GLOB Ratio 0.9 RATIO (0.9-2.4); AST(SGOT) 26 U/L (15-37); Alanine Aminotransfer ALT/SGPT 35 U/L (16-61); Albumin, Serum 4.1 g/dL (3.2-5.0); Alkaline Phosphatase 59 U/L (45-117); Anion Gap 8 (5-15); BUN 29 mg/dL (7-18); BUN/Creat Ratio 22.5 RATIO (10-20); CRP 3.68 mg/L (0.0-3.0); Calcium,Total 9.3 mg/dL (8.5-10.1); Chloride 103 mmol/L (98-107); Creatinine, Serum 1.29 mg/dL (0.70-1.30); EST Glomerular Filtration Rate 58 mL/min (>60); Est Glom Filt Rate - Afr Amer 70 mL/min (>60); Globulin 4.7 g/dL (2.2-4.2); Glucose 97 mg/dL (74-106); Potassium 4.1 mmol/L (3.5-5.1); Protein, Total 8.8 g/dL (6.4-8.2); Sodium Level 139 mmol/L (136-145)
== END | disposition home or self-care (01) ==
LOC: MFPLAB 12:21
PROVIDERS: PCP Family Medicine; Referring Provider Family Medicine; Visit Provider Family Medicine
DX: D89.89 Other specified disorders involving the immune mechanism, not elsewhere classified (principal)
CPT/HCPCS: 36415; 80053; 85025; 85652; 86140

== ENCOUNTER → 2022-04-15 | Outpatient (CLI) | payer MEDICARE, SELFPAY ==
[2022-04-15 12:41] LABS: PSA,Total - Annual Screen 1.43 ng/mL (0.00-4.00)
== END | disposition home or self-care (01) ==
LOC: MFPLAB 11:15
PROVIDERS: PCP Family Medicine; Referring Provider Family Medicine; Visit Provider Family Medicine
DX: Z12.5 Encounter for screening for malignant neoplasm of prostate (principal)
CPT/HCPCS: 36415; 84153; G0103

== ENCOUNTER → 2022-10-12 | Outpatient (CLI) | payer MEDICARE, SELFPAY ==
[2022-10-12 09:54] LABS: Hematocrit 41.6 % (40-54); Hemoglobin 13.7 g/dL (13.0-16.5); Mean Corp Hgb Conc 32.9 g/dL (32-36); Mean Corpuscular Hgb 31.9 pg (27.0-32.0); Mean Platelet Vol. 11.1 fl (6.2-12.0); Platelet Count 210 K/mm3 (150-450); RBC Distribution Width CV 14.5 % (11.6-14.6); RBC Distribution Width SD 51.6 fl (35.1-43.9); Red Blood Count 4.29 M/mm3 (4.6-6.2); White Blood Count 5.8 K/mm3 (4.4-11.0)
[2022-10-12 10:11] LABS: Microalbumin,Random Urine 11.8 mg/L (NO RANGE EST.); Microalbumin:Creatinine Ratio 9.9 mg/g CRE (<30 mg/g CRE)
[2022-10-12 10:31] LABS: ALB/GLOB Ratio 0.9 RATIO (0.9-2.4); AST(SGOT) 24 U/L (15-37); Alanine Aminotransfer ALT/SGPT 25 U/L (16-61); Albumin, Serum 3.9 g/dL (3.2-5.0); Alkaline Phosphatase 60 U/L (45-117); Anion Gap 5 (5-15); BUN 27 mg/dL (7-18); BUN/Creat Ratio 20.8 RATIO (10-20); Calcium,Total 8.8 mg/dL (8.5-10.1); Chloride 102 mmol/L (98-107); EST Glomerular Filtration Rate 58 mL/min (>60); Est Glom Filt Rate - Afr Amer 70 mL/min (>60); Globulin 4.3 g/dL (2.2-4.2); Glucose 101 mg/dL (74-106); Potassium 3.7 mmol/L (3.5-5.1); Protein, Total 8.2 g/dL (6.4-8.2); Sodium Level 134 mmol/L (136-145); Thyroid Stim Hormone (TSH) 2.31 uIU/mL (0.358-3.74)
[2022-10-12 11:12] LABS: Hemoglobin A1c 6.1 % (3.8-5.6)
[2022-10-14 09:42] LABS: PSA,Total- Diagnostic 1.54 ng/mL (0.0-4.0)
== END | disposition home or self-care (01) ==
LOC: MFPLAB 08:56
PROVIDERS: PCP Family Medicine; Visit Provider Family Medicine
DX: R97.20 Elevated prostate specific antigen [PSA] (principal); D89.89 Other specified disorders involving the immune mechanism, not elsewhere classified; E03.9 Hypothyroidism, unspecified; I10 Essential (primary) hypertension; E88.81 Metabolic syndrome and other insulin resistance
CPT/HCPCS: 36415; 80053; 82043; 82570; 83036; 84153; 84443; 85027

== ENCOUNTER 2023-02-15 11:06 | Outpatient (CLI) | payer MEDICARE, SELFPAY ==
[2023-02-15 13:09] LABS: ALB/GLOB Ratio 0.9 RATIO (0.9-2.4); AST(SGOT) 24 U/L (15-37); Alanine Aminotransfer ALT/SGPT 33 U/L (16-61); Albumin, Serum 4.1 g/dL (3.2-5.0); Alkaline Phosphatase 60 U/L (45-117); Anion Gap 5 (5-15); BUN 30 mg/dL (7-18); BUN/Creat Ratio 23.1 RATIO (10-20); Calcium,Total 9.3 mg/dL (8.5-10.1); Chloride 104 mmol/L (98-107); EST Glomerular Filtration Rate 58 mL/min (>60); Est Glom Filt Rate - Afr Amer 70 mL/min (>60); Globulin 4.8 g/dL (2.2-4.2); Glucose 101 mg/dL (74-106); PSA,Total- Diagnostic 2.03 ng/mL (0.0-4.0); Potassium 3.9 mmol/L (3.5-5.1); Protein, Total 8.9 g/dL (6.4-8.2); Sodium Level 138 mmol/L (136-145)
[2023-02-15 13:33] LABS: Hemoglobin A1c 6.1 % (3.8-5.6)
== END 2023-02-15 23:59 | disposition home or self-care (01) ==
LOC: MFPLAB 11:06
PROVIDERS: PCP Family Medicine; Visit Provider Family Medicine
DX: N18.2 Chronic kidney disease, stage 2 (mild) (principal); E66.01 Morbid (severe) obesity due to excess calories; Z68.35 Body mass index [BMI] 35.0-35.9, adult; R97.20 Elevated prostate specific antigen [PSA]; R73.09 Other abnormal glucose
CPT/HCPCS: 36415; 80053; 83036; 84153

== ENCOUNTER → 2023-11-10 | Outpatient (CLI) | payer MEDICARE, SELFPAY ==
[2023-11-10 10:33] LABS: ALB/GLOB Ratio 0.9 RATIO (0.9-2.4); AST(SGOT) 25 U/L (15-37); Alanine Aminotransfer ALT/SGPT 29 U/L (16-61); Alkaline Phosphatase 57 U/L (45-117); Anion Gap 6 (5-15); BUN 29 mg/dL (7-18); BUN/Creat Ratio 20.7 RATIO (10-20); Calcium,Total 8.9 mg/dL (8.5-10.1); Chloride 102 mmol/L (98-107); Cholesterol 168 mg/dL (200); EST Glomerular Filtration Rate 53 mL/min (>60); Est Glom Filt Rate - Afr Amer 64 mL/min (>60); Globulin 4.7 g/dL (2.2-4.2); Glucose 108 mg/dL (74-106); High Density Lipoprotein 33 mg/dL; PSA,Total- Diagnostic 1.77 ng/mL (0.0-4.0); Potassium 4.2 mmol/L (3.5-5.1); Protein, Total 8.7 g/dL (6.4-8.2); Sodium Level 134 mmol/L (136-145); Triglycerides 123 mg/dL; Very Low Density Lipoprotein 25 mg/dL (5-40)
[2023-11-10 13:23] LABS: Microalbumin,Random Urine 7.7 mg/L (NO RANGE EST.); Microalbumin:Creatinine Ratio 18.7 mg/g CRE (<30 mg/g CRE)
== END | disposition home or self-care (01) ==
LOC: MFPLAB 09:04
PROVIDERS: PCP Family Medicine; Visit Provider Family Medicine
DX: I10 Essential (primary) hypertension (principal); R97.20 Elevated prostate specific antigen [PSA]; E78.00 Pure hypercholesterolemia, unspecified; E03.9 Hypothyroidism, unspecified
CPT/HCPCS: 36415; 80053; 80061; 82043; 82570; 84153; 84443

== ENCOUNTER → 2024-05-21 | Outpatient (CLI) | payer MEDICARE, SELFPAY ==
[2024-05-21 11:07] LABS: Microalbumin:Creatinine Ratio 41.2 mg/g CRE (<30 mg/g CRE)
[2024-05-21 12:32] LABS: ALB/GLOB Ratio 0.9 RATIO (0.9-2.4); AST(SGOT) 22 U/L (15-37); Alanine Aminotransfer ALT/SGPT 28 U/L (16-61); Albumin, Serum 4.1 g/dL (3.2-5.0); Alkaline Phosphatase 56 U/L (45-117); Anion Gap 4 (5-15); BUN 29 mg/dL (7-18); Calcium,Total 9.5 mg/dL (8.5-10.1); Chloride 103 mmol/L (98-107); Creatinine, Serum 1.32 mg/dL (0.70-1.30); EST Glomerular Filtration Rate 56 mL/min (>60); Est Glom Filt Rate - Afr Amer 68 mL/min (>60); Globulin 4.6 g/dL (2.2-4.2); Glucose 107 mg/dL (74-106); Potassium 4.2 mmol/L (3.5-5.1); Protein, Total 8.7 g/dL (6.4-8.2); Sodium Level 136 mmol/L (136-145)
== END | disposition home or self-care (01) ==
LOC: MTLAB 09:53
PROVIDERS: PCP Family Medicine; Referring Provider Family Medicine; Visit Provider Family Medicine
DX: N18.31 Chronic kidney disease, stage 3a (principal); E88.819 Insulin resistance, unspecified
CPT/HCPCS: 36415; 80053; 82043; 82570; 83036

== ENCOUNTER → 2024-11-08 | Outpatient (CLI) | payer MEDICARE, SELFPAY ==
[2024-11-08 10:34] LABS: Hematocrit 40.2 % (40-54); Hemoglobin 13.1 g/dL (13.0-16.5); Immature Granulocytes Count 0.040 X10^3/uL (0.0-0.0); Mean Corp Hgb Conc 32.6 g/dL (32-36); Mean Corpuscular Volume 97.3 fL (80-94); Mean Platelet Vol. 12.1 fl (6.2-12.0); NRBC Flagged by Analyzer 0 % (0-5); Platelet Count 195 K/mm3 (150-450); RBC Distribution Width CV 14.5 % (11.6-14.6); RBC Distribution Width SD 51.7 fl (35.1-43.9); Red Blood Count 4.13 M/mm3 (4.6-6.2); White Blood Count 7.4 K/mm3 (4.4-11.0)
[2024-11-08 11:39] LABS: Albumin, Serum 4.4 g/dL (3.4-4.8); BUN 32 mg/dL (4-19); BUN/Creat Ratio 23.5 RATIO (10-20); Globulin 4.1 g/dL (2.2-4.2); Glucose 105 mg/dL (70-99)
[2024-11-08 11:40] LABS: AST(SGOT) 29 U/L (<=37); Alanine Aminotransfer ALT/SGPT 21 U/L (<=46); Alkaline Phosphatase 55 U/L (40-129); Anion Gap 11 (5-15); Calcium,Total 9.2 mg/dL (7.6-11.0); Carbon Dioxide 23.0 mmol/L (21.0-32.0); Chloride 102 mmol/L (98-108); Cholesterol 162 mg/dL (<=200); Low Density Lipoprotein Calc. 114 mg/dL; PSA,Total - Annual Screen 1.90 ng/mL (0.02-4.00); Potassium 4.5 mmol/L (3.3-5.1); Triglycerides 93 mg/dL; Very Low Density Lipoprotein 19 mg/dL (5-40); cholesterol:hdl ratio screen 5.42
== END | disposition home or self-care (01) ==
LOC: MFPLAB 08:14
PROVIDERS: PCP Family Medicine; Referring Provider Family Medicine; Visit Provider Family Medicine
DX: R97.20 Elevated prostate specific antigen [PSA] (principal); K76.0 Fatty (change of) liver, not elsewhere classified; E88.819 Insulin resistance, unspecified; E03.9 Hypothyroidism, unspecified; I10 Essential (primary) hypertension; Z12.5 Encounter for screening for malignant neoplasm of prostate
CPT/HCPCS: 36415; 80053; 80061; 83036; 84153; 84443; 85025; G0103

== ENCOUNTER 2024-11-27 15:24 | Inpatient (IN) | payer MEDICARE, SELFPAY ==
[2024-11-27] VITALS (14 sets, daily range): BP systolic 126–168; BP diastolic 60–87; PULSE 76–103; RESP 14–20; TEMP 36.8–37.7; O2SAT 90–98; BMI 33.5
--- NOTE | 2024-11-27 15:31 | EKG12_ITS ---
Test Reason : GENERAL Blood Pressure : */* mmHG Vent. Rate : 96 BPM Atrial Rate : 96 BPM P-R Int : 210 ms QRS Dur : 90 ms QT Int : 340 ms P-R-T Axes : 43 -24 34 degrees QTcB Int : 429 ms Sinus rhythm with 1st degree A-V block Otherwise normal ECG Confirmed by BIJAN BLUE, HORACIO ([id number]), editor publications DARLYN JOE ([id number]) on 11/28/2024 8:36:36 AM Referred By: Confirmed By: HORACIO THAKKAR MD
--- NOTE | 2024-11-27 15:46 | CT_ITS ---
PROCEDURE: ABDOMEN/PELVIS W IV CONT ONLY 11/27/2024 REASON FOR EXAM: RLQ PAIN TECHNIQUE: ABDOMEN/PELVIS W IV CONT ONLY Coronal and Sagittal reconstruction series were provided. CONTRAST: 100 mL of Isovue 370 One or more dose reduction techniques were used (e.g., Automated exposure control, adjustment of the mA and/or kV according to patient size, use of iterative reconstruction technique. RADIATION DOSE SUMMARY: DLP: 650 mGycm COMPARISON: MR 09/24/21 FINDINGS: Limited sections of the lung bases demonstrate no focal pulmonary mass or consolidations. Bibasilar subsegmental atelectasis. Extensive coronary atherosclerosis. The liver, spleen, pancreas, and both adrenal glands demonstrate no acute findings. Mild hepatic steatosis. 3.2 x 2.1 cm left hepatic cyst. The gallbladder is unremarkable. The stomach is unremarkable. The small bowel loops are not dilated. Acute appendicitis with significant surrounding inflammation and fluid. No periappendiceal abscess. No bowel obstruction. No colonic obstruction. Trace free fluid. No free air. 3.3 cm right kidney cyst. No hydronephrosis. No obstructive uropathy. The urinary bladder is partially distended. Moderate right inguinal hernia with bladder herniation. The pelvic structures are intact. There is no solid pelvic mass. No significant lymphadenopathy. The aorta and IVC demonstrate no acute findings. Moderate atherosclerosis of the abdominal vasculature. Visualized osseous structures demonstrate no acute abnormality. CT/Abdomen/Pelvis W IV Cont ONLY IMPRESSION: Acute appendicitis with significant surrounding inflammation and fluid. No periappendiceal abscess. No bowel obstruction. Moderate right inguinal hernia with bladder herniation. Reading Location: [facility]
--- NOTE | 2024-11-27 15:47 | EX.ED.DYSGE1 ---
HPI History of Present Illness Chief Complaint: Abd Pain Narrative Narrative: Patient is a 74-year-old male with past medical history of hypothyroidism, hypertension who presented to the emergency department chief complaint of abdominal pain. Patient states that he originally had left-sided abdominal pain now that has moved to the right side. He states that this to be going on for approximately 3 days. He states that he picked up a heavy trailer prior to his symptoms starting and attributed his pain to a strained muscle which he did in the past on the left side. Patient denies any recent contacts he states he has not had any previous abdominal surgeries. Patient denies black tarry stools or blood in his stool. [facility] Medical History Hypothyroidism HTN (hypertension) Home Medications ?Medication ?Instructions ?Recorded ?Last Taken ?Type losartan 100 mg tablet 100 mg PO DAILY 04/06/17 11/24/24 History red yeast rice 600 mg capsule 600 mg PO DAILY 04/06/17 11/27/24 History chlorthalidone 25 mg tablet 12.5 mg PO DAILY 08/27/21 11/27/24 History cholecalciferol (vitamin D3) 50 50 mcg PO DAILY 08/27/21 11/27/24 History mcg (2,000 unit) capsule niacin 500 mg tablet 500 mg PO QODAY 08/27/21 11/26/24 History levothyroxine 25 mcg tablet 25 mcg PO DAILY 11/27/24 11/27/24 History Allergy/AdvReac Type Severity Reaction Status Date / Time pneumococcal vaccine (From AdvReac rash on Verified 11/27/24 15:27 Pneumovax-23) arms Surgical History No significant past surgical history Social History Smoking Status: Never smoker alcohol intake: never substance use type: does not use ROS ROS ED ROS Narrative Constitutional: Denies any fevers, chills, headaches Eyes: Denies change in vision double vision blurry vision Cardiovascular: Denies chest pain Respiratory: Denies coughing wheezing shortness of breath Abdomen: Complains of abdominal pain as noted above as well as nausea denies vomiting or diarrhea : Denies urinary symptoms Neurological: Denies numbness, wheeze, tingling Musculoskeletal: Denies back pain Skin: Denies any rashes or lesions EXAM Physical Exam Narrative Exam Narrative: General: Patient lying in bed rest comfortably did not appear to be in acute distress Head: Atraumatic, normocephalic Eyes: PERRL bilaterally, EOMI bilateral, no conjunctival injection noted Neck: Soft, supple, trachea midline Cardiovascular: Patient tachycardic with a regular rhythm Respiratory: Clear to auscultation bilaterally Abdomen: Soft, nondistended, tenderness palpation the right lower quadrant Extremities: +5/5 strength noted in the bilateral upper and lower extremities Neurological: Patient follow commands knew he was at [facility] the year is 2024 Skin: Warm, dry, tact no rashes lesions noted Const Vital Signs: 11/27/24 15:25 11/27/24 16:06 11/27/24 16:27 Temperature 99.9 F H 99 F Temperature Source Oral Oral Pulse Rate 103 H 87 Respiratory Rate 18 18 Blood Pressure 168/87 H 126/62 H Blood Pressure Mean 114 83 Pulse Ox 98 95 Oxygen Delivery Method Room Air Room Air Room Air 11/27/24 17:00 11/27/24 18:00 Temperature 98.3 F 99.4 F H Temperature Source Oral Oral Pulse Rate 82 81 Respiratory Rate 19 H 18 Blood Pressure 136/70 H 131/64 H Blood Pressure Mean 92 86 Pulse Ox 95 94 Oxygen Delivery Method Room Air Room Air MDM MDM MDM Narrative Medical decision making narrative: Patient is a 74-year-old male who presented to the emergency department chief complaint of abdominal pain. On the differential diagnosis includes but limited to appendicitis, bowel obstruction, appendicitis abscess, pancreatitis, viral gastroenteritis, musculoskeletal strain. Once workup is obtained reviewed he will be reevaluated. Patient to give IV fluids morphine Zofran. Patient CBC was significant for leukocytosis of 17,000, hemoglobin 13.8, platelet count of 202. Patient's INR normal at 1.1, PT of 14.1. Patient sodium was 134, potassium normal at 3.5, creatinine was 1.42 he has have underlying chronic kidney disease based on previous blood draws. Patient's AST and ALT were 24 and 20 respectively total bilirubin normal at 0.95. Patient's CT abdomen pelvis IV contrast reviewed and showed acute appendicitis with significant surrounding inflammation and fluid no periappendiceal abscess no bowel obstruction. Moderate right inguinal hernia with bladder herniation. Patient is EKG showed sinus rhythm with a rate of 96 bpm with evidence of first-degree AV block with a IN interval of 210. Patient was given dose of Zosyn. Discussed case with Dr. Parry general surgery who states that he will come in and evaluate the patient. Notified the patient and significant other bedside they are agreeable to plan all question concerns answered. Lab Data Labs: Laboratory Results - last 24 hr 11/27/24 11/27/24 15:40 16:05 WBC 17.9 H RBC 4.39 L Hgb 13.8 Hct 41.3 MCV 94.1 H MCH 31.4 MCHC 33.4 RDW Std Deviation 49.5 H RDW Coeff of [place] 14.3 Plt Count 202 MPV 10.7 Immature Gran % (Auto) 0.800 Neut % (Auto) 84.9 H Lymph % (Auto) 6.0 L [place] % (Auto) 8.0 Eos % (Auto) 0.1 Baso % (Auto) 0.2 Absolute Neuts (auto) 15.2 H Absolute Lymphs (auto) 1.07 Nucleated RBC % 0 PT 14.1 INR 1.1 APTT 29.0 Sodium 134 Potassium 3.5 Chloride 95 L Carbon Dioxide 23.6 Anion Gap 15 BUN 23 H Creatinine 1.42 H Estim Creat Clear Calc 45.09 L Est GFR (MDRD) Non-Af 52 L BUN/Creatinine Ratio 16.5 Glucose 111 H Lactic Acid 1.2 Calcium 9.7 Total Bilirubin 0.95 AST 24 ALT 20 Alkaline Phosphatase 56 Total Protein 9.3 H Albumin 4.7 Globulin 4.6 H Albumin/Globulin Ratio 1.0 Urine Color Straw Urine Clarity Clear Urine pH 6.0 Ur Specific [place] 1.015 Urine Protein 100 H Urine Glucose (UA) Normal Urine Ketones Negative Urine Occult Blood 50 H Urine Nitrite Negative Urine Bilirubin Negative Urine Urobilinogen Normal Ur Leukocyte Esterase Negative Urine RBC 0-5 SEEN Urine WBC 0-5 SEEN Ur Squamous Epith Cells 0-5 SEEN Urine Bacteria 0 SEEN Urine Mucus 0 SEEN Radiography Diagnostic Testing: Clinical Impression(s) from Imaging Studies Abdomen/Pelvis CT 11/27/24 15:46 IMPRESSION: Acute appendicitis with significant surrounding inflammation and fluid. No periappendiceal abscess. No bowel obstruction. Moderate right inguinal hernia with bladder herniation. Reading Location: [facility] Discharge Plan Triage Chief Complaint: Abd Pain ED Provider: Kal Mcdonald Dx/Rx/DC Orders Clinical Impression: HTN (hypertension), Hypothyroidism, Acute appendicitis Prescriptions: No Action chlorthalidone 25 mg tablet 12.5 mg PO DAILY cholecalciferol (vitamin D3) 50 mcg (2,000 unit) capsule 50 mcg PO DAILY niacin 500 mg tablet 500 mg PO QODAY losartan 100 MG tablet 100 mg PO DAILY Patient Comments: BLOOD PRESSURE red yeast rice 600 MG capsule 600 mg PO DAILY levothyroxine 25 mcg tablet 25 mcg PO DAILY Primary Care Provider: Guilherme Erickson Referrals: Guilherme Erickson MD [Primary Care Provider] - Print Language: Cymraes Disposition Disposition: Acute Care [facility]
[2024-11-27 15:54] LABS: Hematocrit 41.3 % (40-54); Hemoglobin 13.8 g/dL (13.0-16.5); Immature Granulocytes Count 0.150 X10^3/uL (0.0-0.0); Mean Corp Hgb Conc 33.4 g/dL (32-36); Mean Corpuscular Volume 94.1 fL (80-94); Mean Platelet Vol. 10.7 fl (6.2-12.0); NRBC Flagged by Analyzer 0 % (0-5); Platelet Count 202 K/mm3 (150-450); RBC Distribution Width CV 14.3 % (11.6-14.6); RBC Distribution Width SD 49.5 fl (35.1-43.9); Red Blood Count 4.39 M/mm3 (4.6-6.2); White Blood Count 17.9 K/mm3 (4.4-11.0)
[2024-11-27] MEDS: 0.9% Normal Saline (1000mL) 1,000 ML 999 ML IV ×2 (16:02→18:49)
[2024-11-27 16:14] LABS: Mucous, Urine 0 SEEN /hpf (<or=2+)
[2024-11-27 16:27] LABS: Color, Urine Straw (Yellow); Glucose, Dipstick Normal (Normal); Ketone-Dipstick Negative (Negative); Leukocyte Esterase-Dipstick Negative /ul (Negative); Nitrite-Dipstick Negative (Negative); Occult Blood-Urine 50 /ul (Negative); Protein-Dipstick 100 mg/dl (Negative); Specific Gravity, Urine 1.015 (1.002-1.030); Urine Bilirubin Dipstick Negative (Negative)
[2024-11-27 16:34] LABS: AST(SGOT) 24 U/L (<=37); Alanine Aminotransfer ALT/SGPT 20 U/L (<=46); Albumin, Serum 4.7 g/dL (3.4-4.8); Alkaline Phosphatase 56 U/L (40-129); Anion Gap 15 (5-15); BUN 23 mg/dL (4-19); BUN/Creat Ratio 16.5 RATIO (10-20); Calcium,Total 9.7 mg/dL (7.6-11.0); Carbon Dioxide 23.6 mmol/L (21.0-32.0); Chloride 95 mmol/L (98-108); Estimated Creatinine Clearance 45.09 ml/min (50-250); Globulin 4.6 g/dL (2.2-4.2); Glucose 111 mg/dL (70-99); Potassium 3.5 mmol/L (3.3-5.1)
[2024-11-27 16:53] LABS: Prothrombin Time (Protime)PT. 14.1 SECONDS (11.7-14.9)
[2024-11-27 16:54] LABS: Partial Thromboplast Time 29.0 Seconds (24.1-36.2)
[2024-11-27 17:22] LABS: Red Blood Cells-Urine 0-5 SEEN /hpf (0-5); Squamous Epithelial Cells - UA 0-5 SEEN /hpf (0-5)
[2024-11-27] MEDS: Piperacil/Tazobactam 3.375 GM in 0.9% Normal Saline (50mL MB+) 50 ML IV (18:48)
--- NOTE | 2024-11-27 19:08 | PCM.HP.STD ---
HPI - General General Date of Admission: 11/27/24 Chief Complaint: Acute onset right lower quadrant pain HPI Narrative DONELL HERRMANN, is a 74 M who presents to [facility] with complaints of progressive, acute onset abdominal pain has become well localized to the right lower quadrant. He presents today with his . He shares that he for started with pain approximately 48 hours ago following dinner. He shares that he had recently been moving a trailer around and had a fairly recent history of a pulled muscle so he initially suspected that his pain symptoms were similarly related. However, his notes that she first detected a low-grade fever at approximately 1:00 AM yesterday. Mr. Herrmann shares a history of anorexia with his last meal coming at dinnertime yesterday. There has been some associated nausea but no vomiting. He reports his bowel movements have been normal. Patient reports a history of high blood pressure, hypothyroidism, and reflux but states that his high blood pressure and reflux are well-controlled. Has no prior surgical history. ED workup remarkable for CBC that demonstrates leukocytosis of greater than 17,000. CT imaging of the abdomen pelvis performed shows acute appendicitis with some periappendiceal fluid but no evan abscess formation. [facility] Medical History (Updated 11/27/24 @ 18:59 by Esme Moreno) Non-smoker Hernia GERD (gastroesophageal reflux disease) Hypothyroidism HTN (hypertension) Home Medications ?Medication ?Instructions ?Recorded ?Last Taken ?Type losartan 100 mg tablet 100 mg PO DAILY 04/06/17 11/24/24 History red yeast rice 600 mg capsule 600 mg PO DAILY 04/06/17 11/27/24 History chlorthalidone 25 mg tablet 12.5 mg PO DAILY 08/27/21 11/27/24 History cholecalciferol (vitamin D3) 50 50 mcg PO DAILY 08/27/21 11/27/24 History mcg (2,000 unit) capsule niacin 500 mg tablet 500 mg PO QODAY 08/27/21 11/26/24 History levothyroxine 25 mcg tablet 25 mcg PO DAILY 11/27/24 11/27/24 History Allergy/AdvReac Type Severity Reaction Status Date / Time pneumococcal vaccine (From AdvReac rash on Verified 11/27/24 15:27 Pneumovax-23) arms Surgical History No significant past surgical history Social History Smoking Status: Never smoker alcohol intake: never substance use type: does not use Vital Signs Vital Signs Vital Signs: 11/27/24 15:25 11/27/24 16:06 11/27/24 16:27 Temperature 99.9 F H 99 F Temperature Source Oral Oral Pulse Rate 103 H 87 Respiratory Rate 18 18 Blood Pressure 168/87 H 126/62 H Blood Pressure Mean 114 83 Blood Pressure Source Blood Pressure Position Blood Pressure Location Pulse Ox 98 95 Oxygen Delivery Method Room Air Room Air Room Air 11/27/24 17:00 11/27/24 18:00 11/27/24 18:58 Temperature 98.3 F 99.4 F H 99 F Temperature Source Oral Oral Oral Pulse Rate 82 81 80 Respiratory Rate 19 H 18 18 Blood Pressure 136/70 H 131/64 H 130/68 H Blood Pressure Mean 92 86 88 Blood Pressure Source Monitor Blood Pressure Position Semi-Fowlers Blood Pressure Location Right Arm Pulse Ox 95 94 96 Oxygen Delivery Method Room Air Room Air Room Air 11/27/24 19:00 11/27/24 19:00 Temperature 99 F 99 F Temperature Source Oral Pulse Rate 80 81 Respiratory Rate 20 H 20 H Blood Pressure 138/71 H 138/71 H Blood Pressure Mean 93 93 Blood Pressure Source Blood Pressure Position Blood Pressure Location Pulse Ox 96 96 Oxygen Delivery Method Room Air Weight Weight: 195 lb 1.6 oz Body Mass Index (BMI) 33.5 Physical Exam Const alert, oriented x3, no apparent distress and well nourished Constitutional Narrative: Morbidly obese Resp normal respiratory effort GI GI Narrative: Small reducible umbilical hernia is nontender to palpation, hirsute, no scars, marked tenderness of the right lower quadrant with severe tenderness over McBurney's point. Results Lab / Micro Data 11/27/24 15:40 11/27/24 15:40 Labs: Laboratory Results - last 24 hr 11/27/24 15:40: WBC 17.9 H, RBC 4.39 L, Hgb 13.8, Hct 41.3, MCV 94.1 H, MCH 31.4, MCHC 33.4, RDW Std Deviation 49.5 H, RDW Coeff of Paloma 14.3, Plt Count 202, MPV 10.7, Immature Gran % (Auto) 0.800, Neut % (Auto) 84.9 H, Lymph % (Auto) 6.0 L, [place] % (Auto) 8.0, Eos % (Auto) 0.1, Baso % (Auto) 0.2, Absolute Neuts (auto) 15.2 H, Absolute Lymphs (auto) 1.07, Nucleated RBC % 0, PT 14.1, INR 1.1, APTT 29.0, Sodium 134, Potassium 3.5, Chloride 95 L, Carbon Dioxide 23.6, Anion Gap 15, BUN 23 H, Creatinine 1.42 H, Estim Creat Clear Calc 45.09 L, Est GFR (MDRD) Non-Af 52 L, BUN/Creatinine Ratio 16.5, Glucose 111 H, Lactic Acid 1.2, Calcium 9.7, Total Bilirubin 0.95, AST 24, ALT 20, Alkaline Phosphatase 56, Total Protein 9.3 H, Albumin 4.7, Globulin 4.6 H, Albumin/Globulin Ratio 1.0 11/27/24 16:05: Urine Color Straw, Urine Clarity Clear, Urine pH 6.0, Ur Specific [place] 1.015, Urine Protein 100 H, Urine Glucose (UA) Normal, Urine Ketones Negative, Urine Occult Blood 50 H, Urine Nitrite Negative, Urine Bilirubin Negative, Urine Urobilinogen Normal, Ur Leukocyte Esterase Negative, Urine RBC 0-5 SEEN, Urine WBC 0-5 SEEN, Ur Squamous Epith Cells 0-5 SEEN, Urine Bacteria 0 SEEN, Urine Mucus 0 SEEN Imaging Radiology Impression Abdomen/Pelvis CT 11/27/24 15:46 IMPRESSION: Acute appendicitis with significant surrounding inflammation and fluid. No periappendiceal abscess. No bowel obstruction. Moderate right inguinal hernia with bladder herniation. Reading Location: [facility] Assessment & Plan Assessment/Plan (1) Acute appendicitis: PLAN: Patient is 74-year-old male who presents with signs and symptoms of acute appendicitis that began approximately 48 hours ago. He demonstrates peritoneal signs on exam and CT imaging shows his appendix to be severely dilated?particularly as it approaches the base of measuring approximately 1.7 cm in diameter. I am concerned given his duration of symptoms and the CT evidence of periappendiceal fluid for his risk of perforation. As such I candidly discussed need to proceed emergently to the operating room for surgical appendectomy. I also discussed the potential need for a partial cecectomy and the name of trying to obtain healthy tissue to land a staple line as well as the potential for requiring an inpatient admission postoperatively on the account of peritoneal contamination and associated risk for ileus/postoperative abscess. Patient and his confirm understanding. Antibiotics were dosed empirically by emergency medicine. Plan to proceed to the operating room for laparoscopic appendectomy versus possible partial cecectomy at first availability. Both anesthesia and the operating room team notified. Ketan Parry MD General Surgery Endocrine Surgery Pager: [facility] [address] [place] [address] [address] [place] [address] Office: [phone] Charges/Coding Visit Charges Inpatient E&M: 30993 Init Hosp L2
[2024-11-27 19:17] LABS: Free T3 2.6 pg/mL (2.18-3.98)
--- NOTE | 2024-11-27 20:20 | ED.RN ---
REPORT CALLED TO SURGERY NURSEMITCHEL.
--- NOTE | 2024-11-27 20:38 | PRE.ANES_ITS ---
ASA Classification* ASA Classification ASA Classification: 2 and E Assessment & Plan Anesthesia* Anesthesia Assessment Anesthesia Assessment: Discussed sedation and/or anesthesia options, risks, benefits, and alternatives with patient/parents/legal guardian/POA. Questions invited. The patient/parents/legal guardian/POA seems to understand and agrees to proceed with anesthesia plan. Reviewed the physical assessment, medical history, allergy history and patient home medications list prior to surgery/procedure/anesthetic and documented any changes. Performed airway and anesthesia risk assessments. Anesthesia Type Anesthesia Type: General History Source History Obtained from:: Patient and Chart Anesthesia Focused Assessment* Temperature: 99 F Pulse Rate: 82 Blood Pressure: 131/71 Respiratory Rate: 20 Pulse Ox: 95 Oxygen Delivery Method: Room Air Airway Assessment Mouth opens: >3 cm Mallampati Score: II Teeth Condition: Loose (Patient has a loose tooth right lower molar.) Neck Range of motion (ROM): Limited ROM (Somewhat Decreased) Labs Anesthesia Preop lab: CBC WBC 17.9 K/mm3 (4.4-11.0) H 11/27/24 15:40 5 RBC 4.39 M/mm3 (4.6-6.2) L 11/27/24 15:40 11/27/24 Hgb 13.8 g/dL (13.0-16.5) 11/27/24 15:40 11/27/24 Hct 41.3 % (40-54) 11/27/24 15:40 11/27/24 Plt Count 202 K/mm3 (150-450) 11/27/24 15:40 11/27/24 CHEMISTRY Potassium 3.5 mmol/L (3.3-5.1) 11/27/24 15:40 11/27/24 Sodium 134 mmol/L (133-145) 11/27/24 15:40 11/27/24 BUN 23 mg/dL (4-19) H 11/27/24 15:40 11/27/24 Creatinine 1.42 mg/dL (0.70-1.20) H 11/27/24 15:40 Glucose 111 mg/dL (70-99) H 11/27/24 15:40 11/27/24 TSH 2.420 uIU/mL (0.300-4.200) 11/27/24 15:40 07/01/24 COAG PT 14.1 SECONDS (11.7-14.9) 11/27/24 15:40 Pre-Assessment Diagnosis/Proposed Procedure Planned Operative Procedure(s): Laparoscopic appendectomy. 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 When Was Last Pacemaker Check QUESTION #4 FULL TEXT: You/Your Family Experience fever (hyperthermia) with Anesthesia Last Oral Intake Last Oral intake: Last Oral Intake NPO since Meds taken in AM with sips of water? Meds patient instructed to take am of surgery Any additional information?: Yes NPO since: 00:00 Meds taken in AM with sips of water?: Yes PONV PONV - real estate inspector: PONV - real estate inspector Female HX of Motion Sickness HX of N/V After Surgery Non-Smoker Duration of Surgery greater than 60 minutes Number of Risk Factors PONV Score Height & Weight Height & Weight: Anesthesia: Height & Weight Height 5 ft 4 in 11/27/24 18:58 Weight: 88.496 kg 11/27/24 18:58 Body Mass Index (BMI) 33.5 11/27/24 18:58 Respiratory Assessment Respiratory Assessment - real estate inspector: Respiratory Tract Infection Hx - real estate inspector Hx Respiratory Tract Infection No 11/27/24 18:58 STOP Sleep Apnea STOP Sleep Apnea - real estate inspector: STOP Sleep Apnea - real estate inspector Hx Hypertension Yes 11/27/24 18:58 Hx Sleep Apnea No 11/27/24 18:58 CPAP BIPAP Do you snore loudly (louder Yes 11/27/24 18:58 than talking or can be heard Do you often feel tired/ No 11/27/24 18:58 fatigued/ sleepy during daytime? Has anyone observed you stop No 11/27/24 18:58 breathing during sleep? STOP Results Positive 11/27/24 18:58 QUESTION #5 FULL TEXT : Do you snore loudly (louder than talking or can be heard through closed doors)? Tobacco Use History Tobacco Use History - real estate inspector: Tobacco Use History - real estate inspector Tobacco Use Smoking Status Never smoker 11/27/24 15:40 Hx Tobacco Use Years Smoking Packs Smoked per Day Smoking Cessation Date was within the last 15 years Hx Smoking Cessation Date Hx Smoking Cessation Counseling Hematologic Medial History Hematologic Hx - real estate inspector: Hematologic Medical Hx - security compliance specialist Hx of Blood Transfusion Hx of Transfusion in last 3 Months Date of Last Transfusion (if within last 3 months) Ever experience any problems with transfusion(s)? Specify any problems Hx of Preganancy in last 3 Months Nurse Filling Out Transfusion & Questions: Date: Time: Patient unable to answer at this time (ie. confused, unrespo /Reproduction History /Reproductive History - real estate inspector: /Reproductive Hx- real estate inspector Hx Now No 11/27/24 18:58 Gestational Age (in weeks): EDC: Hx Hx Para Hx Section SAB No 11/27/24 18:58 [facility] Medical History Non-smoker Hernia GERD (gastroesophageal reflux disease) Hypothyroidism HTN (hypertension) Home Medications ?Medication ?Instructions ?Recorded ?Last Taken ?Type losartan 100 mg tablet 100 mg PO DAILY 04/06/17 History red yeast rice 600 mg capsule 600 mg PO DAILY 04/06/17 11/27/24 History chlorthalidone 25 mg tablet 12.5 mg PO DAILY 08/27/21 11/27/24 History cholecalciferol (vitamin D3) 50 50 mcg PO DAILY 11/27/24 History mcg (2,000 unit) capsule niacin 500 mg tablet 500 mg PO QODAY 08/27/21 History levothyroxine 25 mcg tablet 25 mcg PO DAILY 11/27/24 0 11/27/24 History Allergy/AdvReac Type Severity Reaction Status Date / Time pneumococcal vaccine (From AdvReac rash on Verified 11/27/24 15:27 Pneumovax-23) arms Surgical History No significant past surgical history Social History Smoking Status: Never smoker alcohol intake: never substance use type: does not use Review of Systems (Anesthesia) ROS Narrative System reviewed and no additional complaints, except as documented.
--- NOTE | 2024-11-27 20:50 | APP_PTH ---
PATIENT: DONELL HERRMANN LOC: MS3 U#:[id number] AGE/SX: 74/M ROOM: DC310 RE11/28/[address]: Dr. Ketan Parry MD : 1950 BED: 1 DIS: 11/30/2024 SPEC #: [id number] RECD: 11/28/24 09:29 STATUS: ANDREW REKelly #: [id number] PILAR: 11/27/24 20:[address]: Ketan Parry DEPT: SURGICAL PATHOLOGY RECD BY: Deandre Puentes ENTERED: 11/28/24 11:23 SP TYPE: APPENDIX OTHR DR: Dr. Guilherme Erickson MD Tissues: A - Appendix, NOS Procedures: Surgery Specimen Level III HEADER OPERATION: Laparoscopic appendectomy PRE-OP DIAGNOSIS: Acute appendicitis TISSUE SUBMITTED: A- Appendix MICROSCOPIC DIAGNOSIS A. Appendix appendectomy: - Acute appendicitis with gross perforation. MICROSCOPIC DESCRIPTION Slides are reviewed. GROSS DESCRIPTION A. Received in formalin labeled with the patient's name and date of . Designated as appendix is a 12.5 x 1.0 cm dusky appendix with up to 2.3 cm of attached, congested mesoappendix. There is a central defect nearly transecting the specimen. There is focal serosal fibrinous exudate. The margin is inked black and shaved. Sectioning reveals dark red-brown focally necrotic mucosa devoid of luminal contents. Aircraft Painter Apprentice sections are submitted in 2 cassettes as follows: A1: Margins, cross-sectionsA2: Distal tip, cross-section IA 11/28/2024 CPT:77764
[2024-11-27] MEDS: Bupiv/Epi 0.25% 30 ML Vial (22:37)
--- NOTE | 2024-11-27 22:58 | OP.PCM_ITS ---
Procedures Digestive 40xxx-49xxx: 85619 Laparoscopy appendectomy Operative Report (Standard) Operative Information Date of Procedure: 11/27/24 Pre-Operative Diagnosis: Acute appendicitis Post-Operative Diagnosis: Acute, complicated appendicitis Surgery/Procedure Performed: Laparoscopic appendectomy with partial cecectomy cushion cover inspector: No Type of Anesthesia: General/Supplemental RN Documented Start/Stop Times: Operation Date: 11/27/24 20:50 Case Time Anesthesia Start 11/27/24 20:44 Into Room 11/27/24 20:44 Procedure Start 11/27/24 21:15 Procedure End 11/27/24 22:48
--- NOTE | 2024-11-27 22:58 | PCM.OPRPT ---
Procedures Digestive 40xxx-49xxx: 21558 Laparoscopy appendectomy Operative Report (Standard) Operative Information Date of Procedure: 11/27/24 Pre-Operative Diagnosis: Acute appendicitis Post-Operative Diagnosis: Acute, complicated appendicitis Surgery/Procedure Performed: Laparoscopic appendectomy with partial cecectomy customer specialist: No Type of Anesthesia: General/Supplemental RN Documented Start/Stop Times: Operation Date: 11/27/24 20:50 Case Time Anesthesia Start 11/27/24 20:44 Into Room 11/27/24 20:44 Procedure Start 11/27/24 21:15 Procedure End 11/27/24 22:48 Anesthesia End 11/27/24 22:56 Out of Room 11/27/24 22:56 Into Recovery 11/27/24 23:00 Out of Recovery 11/27/24 23:32 Procedure Start Time: 21:15 Procedure Stop Time: 22:48 Select all DRAINS/GRAFTS/IMPLANTS that apply: Drains (19 Salvadorean round Jacek drain) Drain details: Positioned in suprapubic port site Estimated Blood Loss: 50 Specimen collected: Yes Description of specimen(s) removed: Appendix and accompanying cecum Description of surgery: After appropriate identification in the preoperative holding area, the patient was brought to the operating room and placed supine on the operating room table. Antibiotics had been preoperatively administered by emergency medicine. SCDs were placed and connected. Patient was then induced with general endotracheal anesthetic. The abdomen was prepped and draped in usual sterile fashion. Formal timeout was conducted to confirm both the patient and the procedure. A supraumbilical incision was made and carried down to the level of the fascia which was sharply opened. After opening the peritoneum in like fashion a finger sweep was made to confirm position, and a balloon trocar was placed and pneumoperitoneum was established to 15 mmHg. Patient was positioned in Trendelenburg with the left side down. 2 additional 5 mm trocars were placed in the left lower quadrant and suprapubic positions. The peritoneum was inspected and there were no signs of inadvertent injury from this Arreaga entry. The appendix was not immediately visualized as there appeared to be walling off of the right lower quadrant with adhesions between the mesoappendix and the abdominal sidewall. Once these adhesions were gently teased away from the sidewall the appendix was visualized immediately with severe gangrenous inflammation of the base with evident perforation and evan purulence/stool directly adjacent to the appendiceal base. Owing to the severity in the inflammation at the base of the appendix it was also exceptionally densely adherent to the retroperitoneum. Therefore a process of tedious blunt dissection followed by application of the laparoscopic harmonic scalpel was used to mobilize the base of the appendix off the retroperitoneum taking care to avoid injury to the right common iliac artery at the pelvic brim. The mesoappendix was divided with application of a laparoscopic harmonic. It became evident that I would need to mobilize a portion of the cecum as well to find a landing zone for our staple line that was within healthy enough tissue. Thus the cecum was mobilized laterally along the white line of Toldt using a combination of blunt dissection and the harmonic scalpel. Then the base of the appendix/cecum was sealed and amputated with the use of an Endo KATHY stapler (a total of 3 loads were required to complete this transection). The appendix and accompanying colon was placed in an Endo Catch bag. The staple line was inspected for hemostasis. The right lower quadrant was copiously irrigated with a liter of sterile saline using the suction director of accounts receivable device. As much effluent as could be reasonably retrieved was retrieved with the suction director of accounts receivable device. I then fed a 19 Salvadorean round Jacek drain into the peritoneal cavity and brought the drainage and out through the suprapubic port site. The drain was positioned in the right lower quadrant in our surgical bed. It was secured at the skin with a 3-0 nylon suture. After hemostasis was confirmed again at the staple line, the appendix/colon was removed from the umbilical port site. Pneumoperitoneum was then evacuated and the supraumbilical port site fascia was closed with #1 Vicryl in a [id number] fashion. The port sites were infiltrated with a total volume of 30 mL 0.25% bupivacaine with epinephrine. The skin of each port site was closed with 4-0 Monocryl in a subcuticular fashion. Steri-Strips and OpSite dressings were applied. A split gauze was positioned about the drain exit site and taped in place. Patient tolerated procedure well without any apparent complications. They were awoken from general anesthetic without issue and transferred to post anesthesia care unit for ongoing recovery. Surgical Findings: ? Purulence and evan stool in right lower quadrant going from perforation and gangrenous base of the appendix ? Well-perfused staple line was hemostatic at case conclusion Complications Complications: No Admit VTE Documentation VTE Mechan Device Prophylaxis: SCD's
--- NOTE | 2024-11-27 23:01 | PCM.POST.ANE ---
Anesthesia: Postop Eval I Current Vital Signs Temperature: 99.6 F Pulse Rate: 77 Blood Pressure: 130/60 Respiratory Rate: 16 Pulse Ox: 94 Oxygen Delivery Method: Nasal Cannula Oxygen Flow Rate (L/min): 2 Assessment Airway patent: Yes Spontaneous unlabored respirations: Yes Mental status: Asleep (Arousable) nausea: No Vomiting: No Anesthesia Complication: No Fluid Hydration Crystalloid volume administer (ml): 700 Total IV fluid infused: 700 Progress Note Anesthesia document: Postop Eval 1 completed: Yes
--- OUTSIDE RECORDS SUMMARY | 2024-11-27 23:09 | XMS RPT_ITS | CCD ---
Author Organization [facility] Care Team Providers Care Environmental Associate Name Role Phone Louis Espinoza MD Unavailable Pendlebury, Marin S Unavailable Unavailabl e Pendlebury, Marin S Unavailable Unavailabl e Dre, Guilherme A Unavailable Unavailable Pendlebury, Marin S Unavailable Unavailabl e Pendlebury, Marin S Unavailable Unavailabl e Dre, Guilherme A Unavailable Unavailable JEANETHRAFAELA Attending Unavailable JEANETHRAFAELA Primary Care Unavailable JEANETHRAFAELA MCNULTY Admitting Unavailable Dr. Guilherme Erickson Primary Care Provider Dr. Guilherme Erickson Referring Provider Dr. Guilherme Erickson Other Provider Dr. Julio Mccall Attending Provider [phone] Yonas Johnson Attending Provider Dr. Guilherme Erickson MD Primary Care Provider Dr. Guilherme Erickson MD Attending Provider Dr. Guilherme Erickson MD Referring Provider [phone] Tabatha Muniz Attending Provider [phone] Tabatha Muniz Attending Unavail able Dre, Guilherme Primary Care Unavailable Dre, Guilherme Referring Unavailable Guilherme Erickson Attending Unavailable Dre, Guilherme Primary Care Unavailable Erickson, Guilherme Referring Unavailable Guilherme Erickson Attending Unavailable Erickson, Guilherme Primary Care Unavailable Erickson, Guilherme Referring Unavailable Dr. Kal Mcdonald DO Emergency Provider Dr. Ketan Parry MD Admit Provider Dr. Ketan Parry MD Attending Provider Dr. Ketan Parry MD Other Provider Allergies Allergy Classification Reported Allergen(s) Allergy Type Date of Onset Reaction(s) Facility (13 sources) Pneumococcal vaccine Drug Allergy 08-27-2021 rash on arms [facility] (1 source) Pneumococcal vaccine Drug Allergy 11-11-2024 [facility] Repository Medications Current Medications Medication Drug Class(es) Dates Sig (Normalized) Sig (Original) chlorthalidone 25 mg oral tablet (13 sources) Thiazide-like Diuretic Start: 08-27-2021 Chlorthalidone 25 mg tablet Active 12.5 mg PO DAILY August 27, 2021 12:00am Start: 08-27-2021 take 12.5 mg by mout h once daily Chlorthalidone Active 12.5 MG PO DAILY August 27, 2021 12:00am cholecalciferol 0.05 mg oral capsule (13 sources) Vitamin D Start: 08-27-2021 take 1 capsule by mouth once daily Cholecalciferol (Vitamin D3) 50 mcg (2,000 unit) capsule Active 50 ug PO DAILY August 27, 2021 12:00am levothyroxine sodium 0.025 mg oral tablet (14 sources) l-Thyroxine Start: 11-27-2024 take 1 tablet by mouth once daily Levothyroxine 25 mcg tablet Active 25 ug PO DAILY November 27, 2024 12:00am Start: 08-27-2021 End: 11-27-2024 take 1 capsule by mouth once daily Levothyroxine 25 mcg capsule Discontinued 25 ug PO DAILY August 27, 2021 12:00am November 27, 2024 3:41pm losartan potassium 100 mg oral tablet (16 sources) Angiotensin 2 Receptor Karis Start: 04-06-2017 take 1 tablet by mouth once daily Losartan 100 MG tablet Active 100 mg PO DAILY April 06, 2017 1:00am Start: 03-30-2017 take 1 tablet by josh th once daily LOSARTAN POTASSIUM 100 MG TABS One tablet by mouth daily LOSARTAN POTASSIUM [id number] Louis Espinoza MD niacin 500 mg oral tablet (13 sources) Nicotinic Acid Start: 08-27-2021 take 1 tablet by mouth every other day Niacin 500 mg tablet Active 500 mg PO EVERY OTHER DAY August 27, 2021 12:00am red yeast rice 600 mg oral capsule (16 sources) Start: 04-06-2017 take 1 capsule by mouth once daily Red Yeast Rice 600 MG capsule Active 600 mg PO DAILY April 06, 2017 1:00am Start: 03-30-2017 take 1 tablet by josh th once daily RED YEAST RICE 600 MG CAPS One tablet by mouth daily RED YEAST RICE EXTRACT [id number] Louis Espinoza MD Completed/Discontinued Medications Medication Drug Class(es) Dates Sig (Normalized) Sig (Original) ezetimibe 10 mg oral tablet (13 sources) Dietary Cholesterol Absorption Inhibitor Start: 2 End: 5 take 1 tablet by mouth once daily Ezetimibe 10 mg tablet Discontinued 10 mg PO DAILY August 27, 2021 12:00am November 27, 2024 4:48pm famotidine 20 mg oral tablet (13 sources) Histamine-2 Receptor Antagonist Start: 2 End: 5 take 1 tablet by mouth at bedtime Famotidine 20 mg tablet Discontinued 20 mg PO AT BEDTIME August 27, 2021 12:00am November 27, 2024 4:48pm hydrocortisone 0.025 mg/mg topical ointment (13 sources) Corticosteroid Start: 2 End: 5 Hydrocortisone 2.5 % ointment Discontinued 1 NMA TOPICAL 2 to 3 times per day as needed August 27, 2021 12:00am November 27, 2024 4:48pm omeprazole 20 mg delayed release oral capsule (16 sources) Proton Pump Inhibitor Start: 7 End: 2 take 1 capsule by mouth once daily as needed for gastroesophageal reflux disease Omeprazole 20 MG capsule Discontinued 20 mg PO DAILY NEEDED as needed for Heartburn April 06, 2017 1:00am August 27, 2021 12:38pm Start: 03-30-2017 take 1 tablet by josh th once daily OMEPRAZOLE 20 MG CPDR One tablet by mouth daily OMEPRAZOLE [id number] Louis Espinoza MD predniSONE 10 mg oral tablet (3 sources) Start: 11-11-2024 End: 11-27-2024 Prednisone 10 mg tablet Discontinued 10 mg PO .COMPLEX 30 0 November 11, 2024 12:00am November 27, 2024 4:49pm Take 4 pills for 3 days, 3 pills for 3 days, 2 pills for 3 days, take 1 pill for 3 days Problems Active Problems Problem Classification Problem Date Documented Date Episodic/Chronic Allergic reactions (4 sources) Contact dermatitis; Translations: [Unspecified contact dermatitis, unspecified cause] 11-11-2024 Episodic Appendicitis and other appendiceal conditions (2 sources) Acute appendicitis; Translations: [Unspecified acute appendicitis] 11-27-2024 Episodic Chronic kidney disease (1 source) Chronic kidney disease; Translations: [Chronic kidney disease, stage 3a] Onset: 06-07-2024 Esophageal disorders (16 sources) Gastroesophageal reflux disease; Translations: [Gastro-esophageal reflux disease without esophagitis] Onset: 03-30-2017 03-30-2017 Chronic Essential hypertension (4 sources) Hypertensive disorder; Translations: [Essential (primary) hypertension] Onset: 03-30-2017 03-30-2017 Chronic Osteoarthritis (1 source) Osteoarthritis; Translations: [Unspecified osteoarthritis, unspecified site] Onset: 03-30-2017 03-30-2017 Chronic Other lower respiratory disease (19 sources) Chronic cough; Translations: [Chronic cough] Episodic Other screening for suspected conditions (not mental disorders or infectious disease) (16 sources) Patient encounter status; Translations: [Encounter for screening for malignant neoplasm of colon] Onset: 11-14-2024 04-06-2017 Episodic Thyroid disorders (3 sources) Hypothyroidism; Translations: [Hypothyroidism, unspecified] 11-11-2024 Chronic Past or Other Problems Problem Classification Problem Date Documented Da te Episodic/Chronic Hemorrhoids (1 source) Hemorrhoids; Translations: [Unspecified hemorrhoids] Onset: 03-30-2017 03-30-2017 Episodic Other gastrointestinal disorders (1 source) Fecal occult blood: positive ; Translations: [Other fecal abnormalities] Onset: 03-30-2017 03-30-2017 Episodic Results Test Name Value Interpretation Reference Range Facility Absolute lymphocyte countOrd ered By: Kal Mcdonald on 11-27-2024 Lymphocytes Auto (Unsp spec) [#/Vol] 1.07 10*3/uL 0.83-4.51 [facility] Absolute neutrophil countOrd ered By: Kal Mcdonald on 11-27-2024 Neutrophils (Bld) [#/Vol] 15.2 10*3/uL High 2.0-7.7 [facility] Activated partial thrombopla stin time (aPTT) in platelet poor plasma by coagulation aOrdered By: Kal Mcdonald on 11-27-2024 aPTT Coag (PPP) [Time] 29.0 s 24.1-36.2 [facility] Anion gap in Serum or Plasma Ordered By: Kal Mcdonald on 11-27-2024 Anion gap [Moles/Vol] 15 mmol/L 5-15 [facility] Automated lymphocyte count a s percentage of total leukocytesOrdered By: Kal Mcdonald on 11-27-2024 Lymphocytes/100 WBC Auto (Unsp spec) 6.0 % Low 19-41 [facility] BUN/creatinine ratioOrdered By: Kal Mcdonald on 11-27-2024 Urea nitrogen/Creatinine [Mass ratio] 16.5 mg/mg 10-20 [facility] Basophil percentageOrdered B y: Kal Mcdonald on 11-27-2024 Basophils/100 WBC (Bld) 0.2 % 0-1 [facility] Bilirubin Test strip Ql (U)O rdered By: Kal Mcdonald on 11-27-2024 Bilirubin Ql (U) Negative Negative [facility] Bilirubin, totalOrdered By: Kal Mcdonald on 11-27-2024 Bilirubin [Mass/Vol] 0.95 mg/dL 0.00-1.30 [facility] Carbon dioxide, total [Moles /volume] in Central venous bloodOrdered By: Kal Mcdonald on 11-27-2024 CO2 [Moles/Vol] 23.6 mmol/L 21.0-32.0 [facility] Chloride assayOrdered By: Mariano Mcdonald on 11-27-2024 Chloride [Moles/Vol] 95 mmol/L Low 98-108 [facility] Eosinophil percentageOrdered By: Kal Mcdonald on 11-27-2024 Eosinophils/100 WBC (Bld) 0.1 % 0-5 [facility] Erythrocyte distribution wid th ratioOrdered By: Kal Mcdonald on 11-27-2024 Erythrocyte distribution width (RBC) [Ratio] 14.3 % 11.6-14.6 [facility] Erythrocyte distribution wid th standard deviationOrdered By: Kal Mcdonald on 11-27-2024 Erythrocyte distribution width (RBC) [Ratio] 49.5 fl High 35.1-43.9 [facility] Free K4Mgmwsva By: Kal yu on 11-27-2024 Free T3 [Mass/Vol] 2.6 pg/mL 2.18-3.98 [facility] Glomerular filtration rate ( GFR) estimation/1.73 sq m using serum, plasma, or whole bOrdered By: Kal Mcdonald on 11-27-2024 GFR/1.73 sq M.predicted among non-blacks MDRD (S/P/Bld) [Vol rate/Area] 52 mL/min/{1.73_m2} Low >60 [facility] Comment on above: mL/min/1.73m2 CKD-EP I Creatinine Equation (2020) Hematocrit Auto (Bld) [Volum e fraction]Ordered By: Kal Mcdonald on 11-27-2024 Hematocrit (Bld) [Volume fraction] 41.3 % 40-54 [facility] Hemoglobin measurementOrdere d By: Kal Mcdonald on 11-27-2024 Hemoglobin (Bld) [Mass/Vol] 13.8 g/dL 13.0-16.5 [facility] Immature granulocytes/100 WB C Auto (Bld)Ordered By: Kal Mcdonald on 11-27-2024 Immature granulocytes/100 WBC (Bld) 0.800 % 0.0-0.9 [facility] Comment on above: IG% - Immature Granu locytes (promyelocytes, myelocytes and metamyelocytes) > 1% indicates that a LEFT SHIFT is Present. International normalized rat io (INR) calculationOrdered By: Kal Mcdonald on 11-27-2024 INR Coag (Bld) [Relative time] 1.1 {INR} [facility] Ketones Test strip Ql (U)Ord ered By: Kal Mcdonald on 11-27-2024 Ketones Ql (U) Negative Negative [facility] Laboratory - Chemistry and C hemistry - challengeOrdered By: Kal Mcdonald on 11-27-2024 AST [Catalytic activity/Vol] 24 U/L <38 [facility] Lactic acid measurementOrder ed By: Kal Mcdonald on 11-27-2024 Lactate [Moles/Vol] 1.2 mmol/L 0.0-2.0 [facility] MCV (mean corpuscular volume ) determinationOrdered By: Kal Mcdonald on 11-27-2024 MCV (RBC) [Entitic vol] 94.1 fL High 80-94 [facility] Mean corpuscular hemoglobin (MCH) determinationOrdered By: Kal Mcdonald on 11-27-2024 MCH (RBC) [Entitic mass] 31.4 pg 27.0-32.0 [facility] Mean corpuscular hemoglobin concentration (MCHC) determinationOrdered By: Kal Mcdonald on 11-27-2024 MCHC (RBC) [Mass/Vol] 33.4 g/dL 32-36 [facility] Mean platelet volume determi nationOrdered By: Kal Mcdonald on 11-27-2024 Platelet mean volume (Bld) [Entitic vol] 10.7 fL 6.2-12.0 [facility] Microscopic analysis of urin e for red blood cells (RBC)Ordered By: Kal Mcdonald on 11-27-2024 Microscopic analysis of urine for red blood cells (RBC) 0-5 SEEN /hpf 0-5 [facility] Monocyte percentageOrdered B y: Kal Mcdonald on 11-27-2024 Monocytes/100 WBC (Bld) 8.0 % 0-10 [facility] Mucus LM Ql (Urine sed)Order ed By: Kal Mcdonald on 11-27-2024 Mucus Ql (Urine sed) 0 SEEN /hpf [facility] Neutrophil percentageOrdered By: Kal Mcdonald on 11-27-2024 Neutrophils/100 WBC (Bld) 84.9 % High 47-70 [facility] Nitrite Test strip Ql (U)Ord ered By: Kal Mcdonald on 11-27-2024 Nitrite Ql (U) Negative Negative [facility] Nucleated red blood cell per centageOrdered By: Kal Mcdonald on 11-27-2024 Nucleated RBC/100 WBC (Bld) [Ratio] 0 % 0-5 [facility] Platelet countOrdered By: Mariano Mcdonald on 11-27-2024 Platelets (Bld) [#/Vol] 202 10*3/uL 150-450 [facility] Potassium measurement (mass/ volume)Ordered By: Kal Mcdonald on 11-27-2024 Potassium (Unsp spec) [Mass/Vol] 3.5 mmol/L 3.3-5.1 [facility] Protein Test strip Ql (U)Ord ered By: Kal Mcdonald on 11-27-2024 Protein Ql (U) 100 mg/dl High Negative [facility] Prothrombin timeOrdered By: Kal Mcdonald on 11-27-2024 PT Coag (PPP) [Time] 14.1 s 11.7-14.9 [facility] RBC Auto (Bld) [#/Vol]Ordere d By: Kal Mdconald on 11-27-2024 RBC (Bld) [#/Vol] 4.39 10*6/uL Low 4.6-6.2 [facility] Serum creatinine measurement (mass/volume)Ordered By: Kal Mcdonald on 11-27-2024 Creatinine [Mass/Vol] 1.42 mg/dL High 0.70-1.20 [facility] Serum globulin measurementOr dered By: Kal Mcdonald on 11-27-2024 Globulin (S) [Mass/Vol] 4.6 g/dL High 2.2-4.2 [facility] Serum glucose measurement (m ass/volume)Ordered By: Kal Mcdonald on 11-27-2024 Glucose [Mass/Vol] 111 mg/dL High 70-99 [facility] Serum or plasma alanine rosario otransferase (ALT) measurementOrdered By: Kal Mcdonald on 11-27-2024 ALT [Catalytic activity/Vol] 20 U/L <47 [facility] Serum or plasma albumin jessica urement (mass/volume)Ordered By: Kal Mcdonald on 11-27-2024 Albumin [Mass/Vol] 4.7 g/dL 3.4-4.8 [facility] Serum or plasma albumin/glob ulin mass ratioOrdered By: Kal Mcdonald on 11-27-2024 Albumin/Globulin [Mass ratio] 1.0 {ratio} 0.9-2.4 [facility] Serum or plasma alkaline zulma sphatase measurementOrdered By: Kal Mcdonald on 11-27-2024 ALP [Catalytic activity/Vol] 56 U/L 40-129 [facility] Serum or plasma calcium jessica urement (mass/volume)Ordered By: Kal Mcdonald on 11-27-2024 Calcium [Mass/Vol] 9.7 mg/dL 7.6-11.0 [facility] Serum or plasma urea nitroge n measurement (mass/volume)Ordered By: Kal Mcdonald on 11-27-2024 Urea nitrogen [Mass/Vol] 23 mg/dL High 4-19 [facility] Sodium levelOrdered By: Eva Mcdonald on 11-27-2024 Sodium [Moles/Vol] 134 mmol/L 133-145 [facility] Squamous epithelial cells de tection in urine sediment by light microscopyOrdered By: Kal Mcdonald on 11-27-2024 Epithelial cells.squamous LM Ql (Urine sed) 0-5 SEEN /hpf 0-5 [facility] T4 freeOrdered By: Kal yu on 11-27-2024 Free T4 [Mass/Vol] 1.00 ng/dL 0.76-1.46 [facility] TSH DL <= 0.005 mIU/L QnOrde red By: Kal Mcdonald on 11-27-2024 TSH Qn 2.420 uIU/mL 0.300-4.200 [facility] Total proteinOrdered By: Kendell Mcdonald on 11-27-2024 Protein [Mass/Vol] 9.3 g/dL High 5.9-8.4 [facility] Urine clarityOrdered By: Kendell Mcdonald on 11-27-2024 Clarity (U) Clear Clear [facility] Urine color determinationOrd ered By: Kal Mcdonald on 11-27-2024 Color (U) Straw Yellow [facility] Urine glucose detectionOrder ed By: Kal Mcdonald on 11-27-2024 Glucose Ql (U) Normal mg/dl Normal [facility] Urine leukocyte esterase det ection by dipstickOrdered By: Kal Mcdonald on 11-27-2024 Leukocyte esterase Test strip Ql (U) Negative Negative [facility] Urine pHOrdered By: Kal allison on 11-27-2024 pH (U) 6.0 [pH] 5.0 - 8.0 [facility] Urine sediment bacteria coun t by microscopy (number/high power field)Ordered By: Kal Mcdonald on 11-27-2024 Bacteria LM.HPF (Urine sed) [#/Area] 0 /[HPF] None Seen [facility] Urine specific gravity measu rementOrdered By: Kal Mcdonald on 11-27-2024 Specific gravity (U) [Rel density] 1.015 1.002-1.030 [facility] Urine urobilinogen measureme ntOrdered By: Kal Tamara on 11-27-2024 Urobilinogen Ql (U) Normal mg/dl Normal [facility] White blood cell (WBC) count Ordered By: Kal Mcdonald on 11-27-2024 WBC (Bld) [#/Vol] 17.9 10*3/uL High 4.4-11.0 [facility] White blood cell countOrdere d By: Kal Mcdonald on 11-27-2024 White blood cell count 0-5 SEEN /hpf 0-5 [facility] Office Visit Reporton 2024 Office Visit Report [facility] [address] [place] [address] OFFICE VISIT Date of Service: 11/11/24 MR#: [id number] Acct: [id number] Patient: DONELL HERRMANN Rep #: [id number] : 1950 Provider: NEFTALI Davis Age/Sex: 74/M Location: [facility] Status: Signed Intake Vital Signs 08/27/21 12:32 11/11/24 09:08 Height 5 ft 4 in 5 ft 4 in Weight: 199 lb 4 oz BMI 34.2 BP 142/68 H Blood Pressure Location Lt brachial Position Sitting Respiration 15 Pulse 84 Pulse Source NIBP Temp 98.1 F Temp Source Oral Pulse Oximetry (%) 94 Oxygen Delivery Method room air Intake Visit Reasons: CONCERN FOR SHINGLES Chief Complaint: rash Gig Tender Required: No Is patient in pain?: No Allergies pneumococcal vaccine (From Pneumovax-23) Adverse Reaction (Verified 11/11/24 10:32) rash on arms Have you fallen in the past year?: No Nurse's Note: rash to left upper chest and inferior neck x 3 days with itching, no pain. pt denies additional areas of concern. pt concerned for shingles. PFSH Medical History (Updated 11/11/24 @ 10:43 by Tabatha LINDSAY, PA) Hypothyroidism HTN (hypertension) Surgical History (Updated 11/11/24 @ 10:34 by Kay Herr) No significant past surgical history Social History (Updated 11/11/24 @ 10:34 by Kay Herr) Smoking Status: Never smoker alcohol intake: never substance use type: does not use HPI HPI Chief Complaint: rash Details: DONELL HERRMANN, is a 74 M who presents to the office today for a rash on his neck. It started on Tuesday. It is itchy. He has used Benadryl cream. He has been outside doing yard work. Does not recall any fevers or chills. He does not have any fatigue. ROS Const Constitutional: Positive for other (ROS negative x 6 except what is described above) Exam Const General: cooperative, healthy appearing and no acute distress Nutritional Appearance: average body habitus Orientation: alert, awake and oriented x3 HENMT Head: normal to inspection and atraumatic Ears: hearing grossly normal bilaterally Nose: external nose normal Face and sinus: normal facial exam Mouth: oral mucosae normal Eyes General: appearance normal, both eyes and all related structures Skin Other: Red raised area on the left side of his neck it does started his clavicle area and does wrap up to underneath his mandible. He does have some vesicles on this. Neuro General: patient alert, patient awake, patient oriented x3 and CN's II-XI intact bilaterally Coding Level of Care Code Off vis,est,level 3 Diagnoses Contact dermatitis L25.9 Assessment and Plan Assessment and Plan (1) Contact dermatitis: Status: Acute Plan: Do not suspect shingles as it does not follow that dermatome. Suspect that it is likely either poison barbie or poison oak. Will treat patient with prednisone. Medications: New prednisone Take 4 pills for 3 days, 3 pills for 3 days, 2 pills for 3 days, take 1 pill for 3 days 30 tabs 0RF Clinical Quality Measures Falls Risk Screening/Assistive Devices Have you fallen in the past year?: No 11/11/24 1043 A> Date Tabatha Trujillo Signature: Date (if applicable) CC: Normal [facility] Absolute lymphocyte countOrd ered By: Guilherme Erickson on 11-08-2024 Lymphocytes Auto (Unsp spec) [#/Vol] 1.42 10*3/uL 0.83-4.51 [facility] Absolute neutrophil countOrd ered By: Guilherme Erickson on 11-08-2024 Neutrophils (Bld) [#/Vol] 4.9 10*3/uL 2.0-7.7 [facility] Anion gap in Serum or Plasma Ordered By: Guilherme Erickson on 11-08-2024 Anion gap [Moles/Vol] 11 mmol/L 5- [facility] Automated lymphocyte count a s percentage of total leukocytesOrdered By: Guilherme Erickson on 11-08-2024 Lymphocytes/100 WBC Auto (Unsp spec) 19.1 % - [facility] BUN/creatinine ratioOrdered By: Guilherme Erickson on 11-08-2024 Urea nitrogen/Creatinine [Mass ratio] 23.5 mg/mg High 10- [facility] Basophil percentageOrdered B y: Guilherme Erickson on 11-08-2024 Basophils/100 WBC (Bld) 0.4 % 0- [facility] Bilirubin, totalOrdered By: Guilherme Erickson on 11-08-2024 Bilirubin [Mass/Vol] 0.61 mg/dL 0.00-1.30 [facility] CBC W/Diff, Automatedon 10-30 Absolute Lymph 1.42 X10 3/uL Normal 0.83-4.51 [facility] Comment on above: Order Comment: Order Date: 10/22/24 Order Info: [id number] - CBCD Performed By: #### L 500.5176, L501.9902, L501.9820, L500.4100, L501.9910, L100.0100 #### [facility] [address], [address] Absolute Neut 4.9 X10 3/uL Normal 2.0-7.7 [facility] Comment on above: Order Comment: Order Date: 10/22/24 Order Info: [id number] - CBCD Performed By: #### L 500.4050, L501.9985, L501.9520, L500.4100, L501.9910, L100.0100 #### [facility] [address] [place], [address] Basophils/100 WBC (Bld) 0.4 % Normal 0-1 [facility] Comment on above: Order Comment: Order Date: 10/22/24 Order Info: [id number] - CBCD Performed By: #### L 500.4050, L501.9985, L501.9520, L500.4100, L501.9910, L100.0100 #### [facility] [address] [place], [address] Eosinophils/100 WBC (Bld) 2.3 % Normal 0-5 [facility] Comment on above: Order Comment: Order Date: 10/22/24 Order Info: [id number] - CBCD Performed By: #### L 500.4050, L501.9985, L501.9520, L500.4100, L501.9910, L100.0100 #### [facility] [address] [place], [address] Erythrocyte distribution width (RBC) [Ratio] 14.5 % Normal 11.6-14.6 [facility] Comment on above: Order Comment: Order Date: 10/22/24 Order Info: [id number] - CBCD Performed By: #### L 500.4050, L501.9985, L501.9520, L500.4100, L501.9910, L100.0100 #### [facility] [address] [place], [address] Hematocrit (Bld) [Volume fraction] 40.2 % Normal 40-54 [facility] Comment on above: Order Comment: Order Date: 10/22/24 Order Info: [id number] - CBCD Performed By: #### L 500.4050, L501.9985, L501.9520, L500.4100, L501.9910, L100.0100 #### [facility] [address] [place], [address] Hemoglobin (Bld) [Mass/Vol] 13.1 g/dL Normal 13.0-16.5 [facility] Comment on above: Order Comment: Order Date: 10/22/24 Order Info: [id number] - CBCD Performed By: #### L 500.4050, L501.9985, L501.9520, L500.4100, L501.9910, L100.0100 #### [facility] [address] [place], [address] IG% 0.500 Normal 0.0-0.9 [facility] [facility] Comment on above: Order Comment: Order Date: 10/22/24 Order Info: 0184-1 - CBCD Result Comment: IG% - Immature Granulocytes (promyelocytes, myelocytes and metamyelocytes) > 1% indicates that a LEFT SHIFT is Present. Performed By: #### L 500.4050, L501.9985, L501.9520, L500.4100, L501.9910, L100.0100 #### [facility] [address] [place], [address] Lymphocytes/100 WBC (Bld) 19.1 % Normal 19-41 [facility] Comment on above: Order Comment: Order Date: 10/22/24 Order Info: [id number] - CBCD Performed By: #### L 500.4050, L501.9985, L501.9520, L500.4100, L501.9910, L100.0100 #### [facility] [address] [place], [address] MCH (RBC) [Entitic mass] 31.7 pg Normal 27.0-32.0 [facility] Comment on above: Order Comment: Order Date: 10/22/24 Order Info: [id number] - CBCD Performed By: #### L 500.4050, L501.9985, L501.9520, L500.4100, L501.9910, L100.0100 #### [facility] [address] [place], [address] MCHC (RBC) [Mass/Vol] 32.6 g/dL Normal 32-36 [facility] Comment on above: Order Comment: Order Date: 10/22/24 Order Info: [id number] - CBCD Performed By: #### L 500.4050, L501.9985, L501.9520, L500.4100, L501.9910, L100.0100 #### [facility] [address] [place], [address] MCV (RBC) [Entitic vol] 97.3 fL High 80-94 [facility] Comment on above: Order Comment: Order Date: 10/22/24 Order Info: 0184-1 - CBCD Performed By: #### L 500.4050, L501.9985, L501.9520, L500.4100, L501.9910, L100.0100 #### [facility] [address] [place], [address] Monocytes/100 WBC (Bld) 12.4 % High 0-10 [facility] Comment on above: Order Comment: Order Date: 10/22/24 Order Info: 0184-1 - CBCD Performed By: #### L 500.4050, L501.9985, L501.9520, L500.4100, L501.9910, L100.0100 #### [facility] [address] [place], [address] Neutrophils/100 WBC (Bld) 65.3 % Normal 47-70 [facility] Comment on above: Order Comment: Order Date: 10/22/24 Order Info: 0184-1 - CBCD Performed By: #### L 500.4050, L501.9985, L501.9520, L500.4100, L501.9910, L100.0100 #### [facility] [address] [place], [address] Nucleated RBC (Bld) [#/Vol] 0 10*3/uL Normal 0-5 [facility] Comment on above: Order Comment: Order Date: 10/22/24 Order Info: 0184-1 - CBCD Performed By: #### L 500.4050, L501.9985, L501.9520, L500.4100, L501.9910, L100.0100 #### [facility] [address] [place], [address] Platelet mean volume (Bld) [Entitic vol] 12.1 fL High 6.2-12.0 [facility] Comment on above: Order Comment: Order Date: 10/22/24 Order Info: 0184-1 - CBCD Performed By: #### L 500.4050, L501.9985, L501.9520, L500.4100, L501.9910, L100.0100 #### [facility] [address] [place], [address] Platelets (Bld) [#/Vol] 195 10*3/uL Normal 150-450 [facility] Comment on above: Order Comment: Order Date: 10/22/24 Order Info: 0184-1 - CBCD Performed By: #### L 500.4050, L501.9985, L501.9520, L500.4100, L501.9910, L100.0100 #### [facility] [address] [place], [address] RBC (Bld) [#/Vol] 4.13 10*6/uL Low 4.6-6.2 [facility] Comment on above: Order Comment: Order Date: 10/22/24 Order Info: 0184-1 - CBCD Performed By: #### L 500.4050, L501.9985, L501.9520, L500.4100, L501.9910, L100.0100 #### [facility] [address] [place], [address] RDW SD 51.7 fl High 35.1-43.9 [facility] Comment on above: Order Comment: Order Date: 10/22/24 Order Info: [id number] - CBCD Performed By: #### L 500.4050, L501.9985, L501.9520, L500.4100, L501.9910, L100.0100 #### [facility] [address] [place], [address] WBC (Bld) [#/Vol] 7.4 10*3/uL Normal 4.4-11.0 [facility] Comment on above: Order Comment: Order Date: 10/22/24 Order Info: [id number] - CBCD Performed By: #### L 500.4050, L501.9985, L501.9520, L500.4100, L501.9910, L100.0100 #### [facility] [address] [place], [address] Calculated very low density lipoprotein (VLDL) cholesterol measurementOrdered By: Guilherme Erickson on 11-08-2024 Calculated very low density lipoprotein (VLDL) cholesterol measurement 19 mg/dL 5-40 [facility] Carbon dioxide, total [Moles /volume] in Central venous bloodOrdered By: Guilherme Erickson on 11-08-2024 CO2 [Moles/Vol] 23.0 mmol/L 21.0-32.0 [facility] Chloride assayOrdered By: Bimal Erickson on 11-08-2024 Chloride [Moles/Vol] 102 mmol/L 98-108 [facility] Comprehensive Metabolic Prof ilon 11-08-2024 Albumin/Globulin [Mass ratio] 1.1 {ratio} Normal 0.9-2.4 [facility] Comment on above: Order Comment: Order Date: 10/22/24 Order Info: [id number] - CMP Order Info: - LIPID Order Info: [id number] - TSH Order Info: [id number] - PSA Performed By: #### L 500.4050, L501.9985, L501.9520, L500.4100, L501.9910, L100.0100 #### [facility] [address] [place], [place], [address] ALK PHOS 55 U/L Normal 40-129 [facility] Comment on above: Order Comment: Order Date: 10/22/24 Order Info: [id number] - CMP Order Info: - LIPID Order Info: [id number] - TSH Order Info: [id number] - PSA Performed By: #### L 500.4050, L501.9985, L501.9520, L500.4100, L501.9910, L100.0100 #### [facility] [address] [place], [place], [id number] ALT [Catalytic activity/Vol] 21 U/L Normal <=46 [facility] Comment on above: Order Comment: Order Date: 10/22/24 Order Info: 785-05 - CMP Order Info: - LIPID Order Info: [id number] - TSH Order Info: [id number] - PSA Performed By: #### L 500.4050, L501.9985, L501.9520, L500.4100, L501.9910, L100.0100 #### [facility] [address] [place], [address] AST [Catalytic activity/Vol] 29 U/L Normal <=37 [facility] Comment on above: Order Comment: Order Date: 10/22/24 Order Info: 861 - CMP Order Info: - LIPID Order Info: [id number] - TSH Order Info: [id number] - PSA Performed By: #### L 500.4050, L501.9985, L501.9520, L500.4100, L501.9910, L100.0100 #### [facility] [address] [place], [address] Bilirubin [Mass/Vol] 0.61 mg/dL Normal 0.00-1.30 [facility] Comment on above: Order Comment: Order Date: 10/22/24 Order Info: [id number] - CMP Order Info: [id number] - LIPID Order Info: [id number] - TSH Order Info: 2857-1 - PSA Performed By: #### L 500.4050, L501.9985, L501.9520, L500.4100, L501.9910, L100.0100 #### [facility] [address] [place], [address] Calcium [Mass/Vol] 9.2 mg/dL Normal 7.6-11.0 [facility] Comment on above: Order Comment: Order Date: 10/22/24 Order Info: 785-1 - CMP Order Info: - LIPID Order Info: 3 - TSH Order Info: [id number] - PSA Performed By: #### L 500.4050, L501.9985, L501.9520, L500.4100, L501.9910, L100.0100 #### [facility] [address] [place], [address] Chloride [Moles/Vol] 102 mmol/L Normal 98-108 [facility] Comment on above: Order Comment: Order Date: 10/22/24 Order Info: 07-1 - CMP Order Info: [id number] - LIPID Order Info: [id number] - TSH Order Info: 2857-1 - PSA Performed By: #### L 500.4050, L501.9985, L501.9520, L500.4100, L501.9910, L100.0100 #### [facility] [address] [place], [address] CO2 [Moles/Vol] 23.0 mmol/L Normal 21.0-32.0 [facility] Comment on above: Order Comment: Order Date: 10/22/24 Order Info: 07-1 - CMP Order Info: - LIPID Order Info: [id number] - TSH Order Info: 7-1 - PSA Performed By: #### L 500.4050, L501.9985, L501.9520, L500.4100, L501.9910, L100.0100 #### [facility] [address] [place], [address] GAP 11 Normal 5-15 [facility] Comment on above: Order Comment: Order Date: 10/22/24 Order Info: 785- - CMP Order Info: - LIPID Order Info: [id number] - TSH Order Info: 2856-1 - PSA Performed By: #### L 500.4050, L501.9985, L501.9520, L500.4100, L501.9910, L100.0100 #### [facility] [address] [place], [place], [address] Potassium [Moles/Vol] 4.5 mmol/L Normal 3.3-5.1 [facility] Comment on above: Order Comment: Order Date: 10/22/24 Order Info: 785-05 - CMP Order Info: - LIPID Order Info: [id number] - TSH Order Info: 7-1 - PSA Performed By: #### L 500.4050, L501.9985, L501.9520, L500.4100, L501.9910, L100.0100 #### [facility] [address] [place], [address] Sodium [Moles/Vol] 137 mmol/L Normal 133-145 [facility] Comment on above: Order Comment: Order Date: 10/22/24 Order Info: 0786-1 - CMP Order Info: [id number] - LIPID Order Info: 3 - TSH Order Info: 2857-1 - PSA Performed By: #### L 500.4050, L501.9985, L501.9520, L500.4100, L501.9910, L100.0100 #### [facility] [address] [place], [address] Albumin [Mass/Vol] 4.4 g/dL Normal 3.4-4.8 [facility] Comment on above: Order Comment: Order Date: 10/22/24 Order Info: [id number] - CMP Order Info: [id number] - LIPID Order Info: 3 - TSH Order Info: 7-1 - PSA Performed By: #### L 500.4050, L501.9985, L501.9520, L500.4100, L501.9910, L100.0100 #### [facility] [address] [place], [address] BUN/CRE 23.5 RATIO High 10-20 [facility] Comment on above: Order Comment: Order Date: 10/22/24 Order Info: 785- - CMP Order Info: - LIPID Order Info: [id number] - TSH Order Info: 71 - PSA Performed By: #### L 500.4050, L501.9985, L501.9520, L500.4100, L501.9910, L100.0100 #### [facility] [address] [place], [address] Creatinine [Mass/Vol] 1.38 mg/dL High 0.70-1.20 [facility] Comment on above: Order Comment: Order Date: 10/22/24 Order Info: 0786-1 - CMP Order Info: [id number] - LIPID Order Info: 3 - TSH Order Info: 2857-1 - PSA Performed By: #### L 500.4050, L501.9985, L501.9520, L500.4100, L501.9910, L100.0100 #### [facility] [address] [place], [address] GFR/1.73 sq M.predicted among non-blacks MDRD (S/P/Bld) [Vol rate/Area] 53 mL/min/{1.73_m2} Low >60 [facility] Comment on above: Order Comment: Order Date: 10/22/24 Order Info: 0786-1 - CMP Order Info: [id number] - LIPID Order Info: 3 - TSH Order Info: 7-1 - PSA Result Comment: mL/m in/1.73m2 CKD-EPI Creatinine Equation (2020) Performed By: #### L 500.4050, L501.9985, L501.9520, L500.4100, L501.9910, L100.0100 #### [facility] [address] [place], [address] Globulin (S) [Mass/Vol] 4.1 g/dL Normal 2.2-4.2 [facility] Comment on above: Order Comment: Order Date: 10/22/24 Order Info: 0786 - CMP Order Info: [id number] - LIPID Order Info: [id number] - TSH Order Info: 2856-05 - PSA Performed By: #### L 500.4050, L501.9985, L501.9520, L500.4100, L501.9910, L100.0100 #### [facility] [address] [place], [address] Glucose [Mass/Vol] 105 mg/dL High 70-99 [facility] Comment on above: Order Comment: Order Date: 10/22/24 Order Info: 0786- - CMP Order Info: [id number] - LIPID Order Info: 3 - TSH Order Info: 1 - PSA Performed By: #### L 500.4050, L501.9985, L501.9520, L500.4100, L501.9910, L100.0100 #### [facility] [address] [place], [address] T PROT 8.4 g/dL Normal 5.9-8.4 [facility] Comment on above: Order Comment: Order Date: 10/22/24 Order Info: 86-1 - CMP Order Info: [id number] - LIPID Order Info: [id number] - TSH Order Info: [id number] - PSA Performed By: #### L 500.4050, L501.9985, L501.9520, L500.4100, L501.9910, L100.0100 #### [facility] [address] [place], [place], [address] Urea nitrogen [Mass/Vol] 32 mg/dL High 4-19 [facility] Comment on above: Order Comment: Order Date: 10/22/24 Order Info: [id number] - CMP Order Info: [id number] - LIPID Order Info: 3 - TSH Order Info: 2856-05 - PSA Performed By: #### L 500.4050, L501.9985, L501.9520, L500.4100, L501.9910, L100.0100 #### [facility] [address] [place], [place], [address] Eosinophil percentageOrdered By: Guilherme Erickson on 11-08-2024 Eosinophils/100 WBC (Bld) 2.3 % 0-5 [facility] Erythrocyte distribution wid th ratioOrdered By: Guilherme Erickson on 11-08-2024 Erythrocyte distribution width (RBC) [Ratio] 14.5 % 11.6-14.6 [facility] Erythrocyte distribution wid th standard deviationOrdered By: Guilherme Erickson on 11-08-2024 Erythrocyte distribution width (RBC) [Ratio] 51.7 fl High 35.1-43.9 [facility] Glomerular filtration rate ( GFR) estimation/1.73 sq m using serum, plasma, or whole bOrdered By: Guilherme Erickson on 11-08-2024 GFR/1.73 sq M.predicted among non-blacks MDRD (S/P/Bld) [Vol rate/Area] 53 mL/min/{1.73_m2} Low >60 [facility] Comment on above: mL/min/1.73m2 CKD-EP I Creatinine Equation (2020) Hematocrit Auto (Bld) [Volum e fraction]Ordered By: Guilherme Erickson on 11-08-2024 Hematocrit (Bld) [Volume fraction] 40.2 % 40-54 [facility] Hemoglobin A1con 11-08-2024 HbA1c (Bld) [Mass fraction] 6.2 % High <=5.6 [facility] Comment on above: Order Comment: Order Date: 10/22/24 Order Info: [id number] - A1C Result Comment: Norm al < 5.7 % Prediabetic 5.7 - 6.4 % Diabetic >or= 6.5 % Please note range changes. Performed By: #### L 500.4050, L501.9985, L501.9520, L500.4100, L501.9910, L100.0100 #### [facility] [place], [address] Hemoglobin A1c percentageOrd ered By: Guilherme Erickosn on 11-08-2024 HbA1c (Bld) [Mass fraction] 6.2 % High <5.7 [facility] Comment on above: Normal < 5.7 % Predi abetic 5.7 - 6.4 % Diabetic >or= 6.5 % Please note range changes. Hemoglobin measurementOrdere d By: Guilherme Erickson on 11-08-2024 Hemoglobin (Bld) [Mass/Vol] 13.1 g/dL 13.0-16.5 [facility] Immature granulocytes/100 WB C Auto (Bld)Ordered By: Guilherme Erickson on 11-08-2024 Immature granulocytes/100 WBC (Bld) 0.500 % 0.0-0.9 [facility] Comment on above: IG% - Immature Granu locytes (promyelocytes, myelocytes and metamyelocytes) > 1% indicates that a LEFT SHIFT is Present. LDL calc ser/plasOrdered By: Guilherme Erickson on 11-08-2024 Cholesterol in LDL [Mass/Vol] 114 mg/dL [facility] Comment on above: Fmisgtotku=929-822 m g/dL & Higher Axsv=505 mg/dL or greater Laboratory - Chemistry and C hemistry - challengeOrdered By: Guilherme Erickson on 11-08-2024 AST [Catalytic activity/Vol] 29 U/L <38 [facility] Lipid Profileon 07-10-2025 CHOL:HDL 5.42 Normal [facility] Comment on above: Order Comment: Order Date: 10/22/24 Order Info: 07 - CMP Order Info: - LIPID Order Info: [id number] - TSH Order Info: [id number] - PSA Performed By: #### L 500.4050, L501.9985, L501.9520, L500.4100, L501.9910, L100.0100 #### [facility] [address] [place], [place], [id number] ([address]) Cholesterol [Mass/Vol] 162 mg/dL Normal <=200 [facility] Comment on above: Order Comment: Order Date: 10/22/24 Order Info: 785-05 - CMP Order Info: - LIPID Order Info: [id number] - TSH Order Info: [id number] - PSA Result Comment: Chol esterol level, Desirable <200 mg/dL Borderline high cholesterol 200-239 mg/dL High cholesterol >=240 mg/dL Recommendations of the NCEP Adult Treatment Panel for the following risk-cutoff thresholds for the [place] population. Performed By: #### L 500.4050, L501.9985, L501.9520, L500.4100, L501.9910, L100.0100 #### [facility] [address] [place], [address] Cholesterol in HDL [Mass/Vol] 30 mg/dL Low [facility] Comment on above: Order Comment: Order Date: 10/22/24 Order Info: 07 - CMP Order Info: - LIPID Order Info: [id number] - TSH Order Info: [id number] - PSA Result Comment: Eva onal Cholesterol Education Program (NCEP) guidelines: <40 mg/dL: Low HDL-cholesterol (major risk factor for CHD) >= 60 mg/dL: High HDL-cholesterol (negative risk factor for CHD) HDL-cholesterol is affected by a number of factors, e.g. smoking, exercise, hormones, sex and age. Performed By: #### L 500.4050, L501.9985, L501.9520, L500.4100, L501.9910, L100.0100 #### [facility] [address] [place], [address] Cholesterol in LDL [Mass/Vol] 114 mg/dL Normal [facility] Comment on above: Order Comment: Order Date: 10/22/24 Order Info: [id number] - CMP Order Info: [id number] - LIPID Order Info: 3 - TSH Order Info: [id number]- - PSA Result Comment: Bord ghvztt=439-713 mg/dL Higher Gwxj=620 mg/dL or greater Performed By: #### L 500.4050, L501.9985, L501.9520, L500.4100, L501.9910, L100.0100 #### [facility] [address] [place], [address] Cholesterol in VLDL [Mass/Vol] 19 mg/dL Normal 5-40 [facility] Comment on above: Order Comment: Order Date: 10/22/24 Order Info: [id number] - CMP Order Info: - LIPID Order Info: [id number] - TSH Order Info: [id number] - PSA Performed By: #### L 500.4050, L501.9985, L501.9520, L500.4100, L501.9910, L100.0100 #### [facility] [address] [place], [address] Triglyceride [Mass/Vol] 93 mg/dL Normal [facility] Comment on above: Order Comment: Order Date: 10/22/24 Order Info: [id number] - CMP Order Info: - LIPID Order Info: 3 - TSH Order Info: [id number] - PSA Result Comment: The drugs N-Acetylcysteine and Metamizole may falsely depress this assay. Normal range: <150 mg/dL Borderline High: 150-199 mg/dL High: 200-499 mg/dL Very High: >500 mg/dL Performed By: #### L 500.4050, L501.9985, L501.9520, L500.4100, L501.9910, L100.0100 #### [facility] [place], [address] MCV (mean corpuscular volume ) determinationOrdered By: Guilherme Erickson on 11-08-2024 MCV (RBC) [Entitic vol] 97.3 fL High 80-94 [facility] Mean corpuscular hemoglobin (MCH) determinationOrdered By: Guilherme Erickson on 11-08-2024 MCH (RBC) [Entitic mass] 31.7 pg 27.0-32.0 [facility] Mean corpuscular hemoglobin concentration (MCHC) determinationOrdered By: Guilherme Erickson on 11-08-2024 MCHC (RBC) [Mass/Vol] 32.6 g/dL 32-36 [facility] Mean platelet volume determi nationOrdered By: Guilherme Erickson on 11-08-2024 Platelet mean volume (Bld) [Entitic vol] 12.1 fL High 6.2-12.0 [facility] Monocyte percentageOrdered B y: Guilherme Erickson on 11-08-2024 Monocytes/100 WBC (Bld) 12.4 % High 0-10 [facility] Neutrophil percentageOrdered By: Guilhermelizabeth Erickson on 11-08-2024 Neutrophils/100 WBC (Bld) 65.3 % 47-70 [facility] Nucleated red blood cell per centageOrdered By: Guilherme Erickson on 11-08-2024 Nucleated RBC/100 WBC (Bld) [Ratio] 0 % 0-5 [facility] PSA,Total - Annual Screenon 11-08-2024 PSA,TOT SCREEN 1.90 ng/mL Normal 0.02-4.00 [facility] Comment on above: Order Comment: Order Date: 10/22/24 Order Info: [id number] - CMP Order Info: [id number] - LIPID Order Info: [id number] - TSH Order Info: [id number] - PSA Result Comment: This test was performed using the [employer] tPSA method. Measured values of a patient??sample can vary depending on the testing procedure used. PSA values determined on patient samples by different testing procedures cannot be used interchangeably. If there is a change in PSA assays while monitoring therapy, sequential testing should be performed to confirm baseline values. Performed By: #### L 500.4050, L501.9985, L501.9520, L500.4100, L501.9910, L100.0100 #### [facility] [address] [place], [address] Platelet countOrdered By: Bimal Erickson on 11-08-2024 Platelets (Bld) [#/Vol] 195 10*3/uL 150-450 [facility] Potassium measurement (mass/ volume)Ordered By: Guilherme Erickson on 11-08-2024 Potassium (Unsp spec) [Mass/Vol] 4.5 mmol/L 3.3-5.1 [facility] RBC Auto (Bld) [#/Vol]Ordere d By: Guilherme Erickson on 11-08-2024 RBC (Bld) [#/Vol] 4.13 10*6/uL Low 4.6-6.2 [facility] Screening total cholesterol/ high density lipoprotein (HDL) cholesterol ratioOrdered By: Guilherme Erickson on 11-08-2024 Cholesterol.total/Chol esterol in HDL [Mass ratio] 5.42 {ratio} [facility] Serum creatinine measurement (mass/volume)Ordered By: Guilherme Erickson on 11-08-2024 Creatinine [Mass/Vol] 1.38 mg/dL High 0.70-1.20 [facility] Serum globulin measurementOr dered By: Guilherme Erickson on 11-08-2024 Globulin (S) [Mass/Vol] 4.1 g/dL 2.2-4.2 [facility] Serum glucose measurement (m ass/volume)Ordered By: Guilherme Erickson on 11-08-2024 Glucose [Mass/Vol] 105 mg/dL High 70-99 [facility] Serum or plasma alanine rosario otransferase (ALT) measurementOrdered By: Guilherme Erickson 11-08-2024 ALT [Catalytic activity/Vol] 21 U/L <47 [facility] Serum or plasma albumin jessica urement (mass/volume)Ordered By: Guilherme Erickson on 11-08-2024 Albumin [Mass/Vol] 4.4 g/dL 3.4-4.8 [facility] Serum or plasma albumin/glob ulin mass ratioOrdered By: Guilherme Erickson on 11-08-2024 Albumin/Globulin [Mass ratio] 1.1 {ratio} 0.9-2.4 [facility] Serum or plasma alkaline zulma sphatase measurementOrdered By: Guilherme Erickson on 11-08-2024 ALP [Catalytic activity/Vol] 55 U/L 40-129 [facility] Serum or plasma calcium jessica urement (mass/volume)Ordered By: Guilherme Erickson on 11-08-2024 Calcium [Mass/Vol] 9.2 mg/dL 7.6-11.0 [facility] Serum or plasma cholesterol in HDL measurement (mass/volume)Ordered By: Guilherme Erickson on 11-08-2024 Cholesterol in HDL [Mass/Vol] 30 mg/dL Low >40 [facility] Comment on above: National Cholesterol Education Program (NCEP) guidelines:<40 mg/dL: Low HDL-cholesterol (major risk factor for CHD)>= 60 mg/dL: High HDL-cholesterol (negative risk factor for CHD)HDL-cholesterol is affected by a number of factors, e.g. smoking, exercise, hormones, sex and age. Serum or plasma cholesterol measurement (mass/volume)Ordered By: Guilherme Erickson on 11-08-2024 Cholesterol [Mass/Vol] 162 mg/dL <201 [facility] Comment on above: Cholesterol level, D esirable <200 mg/dLBorderline high cholesterol 200-239 mg/dLHigh cholesterol >=240 mg/dLRecommendations of the NCEP Adult Treatment Panel for the following risk-cutoff thresholds for the [place] population. Serum or plasma urea nitroge n measurement (mass/volume)Ordered By: Guilherme Erickson on 11-08-2024 Urea nitrogen [Mass/Vol] 32 mg/dL High 4-19 [facility] Sodium levelOrdered By: Guilherme Erickson 11-08-2024 Sodium [Moles/Vol] 137 mmol/L 133-145 [facility] TSH DL <= 0.005 mIU/L QnOrde red By: Guilherme Erickson on 11-08-2024 TSH Qn 2.960 uIU/mL 0.300-4.200 [facility] Thyroid Stim Hormone (TSH)on 11-08-2024 TSH 2.960 uIU/mL Normal 0.300-4.200 [facility] Comment on above: Order Comment: Order Date: 10/22/24 Order Info: 0786-1 - CMP Order Info: [id number] - LIPID Order Info: [id number] - TSH Order Info: [id number] - PSA Performed By: #### L 500.4050, L501.9985, L501.9520, L500.4100, L501.9910, L100.0100 #### [facility] Laboratory [address] [place], [place], [id number] Total proteinOrdered By: Sheila Erickson on 11-08-2024 Protein [Mass/Vol] 8.4 g/dL 5.9-8.4 [facility] Triglycerides measurementOrd ered By: Guilherme Erickson on 11-08-2024 Triglyceride [Mass/Vol] 93 mg/dL <199 [facility] Comment on above: The drugs N-Acetylcy steine and Metamizole may falsely depress this assay. Normal range: <150 mg/dLBorderline High: 150-199 mg/dLHigh: 200-499 mg/dLVery High: >500 mg/dL White blood cell (WBC) count Ordered By: Guilherme Erickson on 11-08-2024 WBC (Bld) [#/Vol] 7.4 10*3/uL 4.4-11.0 [facility] Comprehensive Metabolic Prof ilon 05-21-2024 Albumin [Mass/Vol] 4.1 g/dL Normal 3.2-5.0 [facility] Comment on above: Order Comment: Order Date: 11/15/23 Order Info: [id number] - CMP Performed By: #### L 500.4050, L502.0250, L501.9985 #### [facility] [address] [place], [place], [id number] Albumin/Globulin [Mass ratio] 0.9 {ratio} Normal 0.9-2.4 [facility] Comment on above: Order Comment: Order Date: 11/15/23 Order Info: [id number] - CMP Performed By: #### L 500.4050, L502.0250, L501.9985 #### [facility] [address] [place], [address] ALK P 56 U/L Normal 45-117 [facility] Comment on above: Order Comment: Order Date: 11/15/23 Order Info: 0786-1 - CMP Performed By: #### L 500.4050, L502.0250, L501.9985 #### [facility] [address] [place], [address] ALT [Catalytic activity/Vol] 28 U/L Normal 16-61 [facility] Comment on above: Order Comment: Order Date: 11/15/23 Order Info: [id number] - CMP Performed By: #### L 500.4050, L502.0250, L501.9985 #### [facility] [address] [place], [address] AST [Catalytic activity/Vol] 22 U/L Normal 15-37 [facility] Comment on above: Order Comment: Order Date: 11/15/23 Order Info: 0786-1 - CMP Performed By: #### L 500.4050, L502.0250, L501.9985 #### [facility] [address] [place], [address] Bilirubin [Mass/Vol] 0.70 mg/dL Normal 0.20-1.00 [facility] Comment on above: Order Comment: Order Date: 11/15/23 Order Info: [id number] - CMP Result Comment: For patients on eltrombopag therapy, use of Dimension [place] TBIL is not recommended. Performed By: #### L 500.4050, L502.0250, L501.9985 #### [facility] [address] [place], [address] BUN/CRE 22.0 RATIO High 10-20 [facility] Comment on above: Order Comment: Order Date: 11/15/23 Order Info: 0786-1 - CMP Performed By: #### L 500.4050, L502.0250, L501.9985 #### [facility] [address] [place], [address] CA,Total 9.5 mg/dL Normal 8.5-10.1 [facility] Comment on above: Order Comment: Order Date: 11/15/23 Order Info: 0786-1 - CMP Performed By: #### L 500.4050, L502.0250, L501.9985 #### [facility] [address] [place], [address] Chloride [Moles/Vol] 103 mmol/L Normal 98-107 [facility] Comment on above: Order Comment: Order Date: 11/15/23 Order Info: 0786-1 - CMP Performed By: #### L 500.4050, L502.0250, L501.9985 #### [facility] [address] [place], [address] CO2 [Moles/Vol] 29.0 mmol/L Normal 21.0-32.0 [facility] Comment on above: Order Comment: Order Date: 11/15/23 Order Info: 0786-1 - CMP Performed By: #### L 500.4050, L502.0250, L501.9985 #### [facility] [address] [place], [address] Creatinine [Mass/Vol] 1.32 mg/dL High 0.70-1.30 [facility] Comment on above: Order Comment: Order Date: 11/15/23 Order Info: 0786-1 - CMP Result Comment: The validity of the calculated GFR GFRAA in patients over 70 years has not been determined. Clinical correlation is essential. Performed By: #### L 500.4050, L502.0250, L501.9985 #### [facility] [address] [place], [address] EST GFR - AA 68 mL/min Normal >60 [facility] Comment on above: Order Comment: Order Date: 11/15/23 Order Info: 0786-1 - CMP Result Comment: Afri can [place] GFR Calc Performed By: #### L 500.4050, L502.0250, L501.9985 #### [facility] [address] [place], [address] GAP 4 Low 5-15 [facility] Comment on above: Order Comment: Order Date: 11/15/23 Order Info: 0786-1 - CMP Performed By: #### L 500.4050, L502.0250, L501.9985 #### [facility] [address] [place], [address] GFR/1.73 sq M.predicted among non-blacks MDRD (S/P/Bld) [Vol rate/Area] 56 mL/min/{1.73_m2} Low >60 [facility] Comment on above: Order Comment: Order Date: 11/15/23 Order Info: 0786-1 - CMP Result Comment: Non- GFR Calc Performed By: #### L 500.4050, L502.0250, L501.9985 #### [facility] [address] [place], [address] Globulin (S) [Mass/Vol] 4.6 g/dL High 2.2-4.2 [facility] Comment on above: Order Comment: Order Date: 11/15/23 Order Info: 0786-1 - CMP Performed By: #### L 500.4050, L502.0250, L501.9985 #### [facility] [address] [place], [address] Glucose [Mass/Vol] 107 mg/dL High 74-106 [facility] Comment on above: Order Comment: Order Date: 11/15/23 Order Info: 0786-1 - CMP Result Comment: Fast ing Glucose result from 100 to 125 mg/dL suggests IMPAIRED HOMEOSTASIS per A.D.A. criteria. Performed By: #### L 500.4050, L502.0250, L501.9985 #### [facility] [address] [place], [address] Potassium [Moles/Vol] 4.2 mmol/L Normal 3.5-5.1 [facility] Comment on above: Order Comment: Order Date: 11/15/23 Order Info: 0786-1 - CMP Performed By: #### L 500.4050, L502.0250, L501.9985 #### [facility] [address] [place], [address] Sodium [Moles/Vol] 136 mmol/L Normal 136-145 [facility] Comment on above: Order Comment: Order Date: 11/15/23 Order Info: 0786-1 - CMP Performed By: #### L 500.4050, L502.0250, L501.9985 #### [facility] [address] [place], [address] T PROT 8.7 g/dL High 6.4-8.2 [facility] Comment on above: Order Comment: Order Date: 11/15/23 Order Info: 0786-1 - CMP Performed By: #### L 500.4050, L502.0250, [id number] #### [facility] [address] [place], [address] Urea nitrogen [Mass/Vol] 29 mg/dL High 7-18 [facility] Comment on above: Order Comment: Order Date: 11/15/23 Order Info: 0786-1 - CMP Performed By: #### L 500.4050, L502.0250, L501.9985 #### [facility] [address] [place], [address] Hemoglobin A1con 05-21-2024 HbA1c (Bld) [Mass fraction] 6.0 % High 3.8-5.6 [facility] Comment on above: Order Comment: Order Date: 11/15/23 Order Info: [id number] - A1C Result Comment: Norm al < 5.7 % Prediabetic 5.7 - 6.4 % Diabetic >or= 6.5 % Please note range changes. Performed By: #### L 500.4050, L502.0250, L501.9985 #### [facility] [address] [place], [address] Microalb:Creat Ratio,Random URon 05-21-2024 Creatinine [Mass/Vol] 24.30 mg/dL Normal NO RAN GE EST. [facility] Comment on above: Order Comment: Order Date: 11/15/23 Order Info: [id number] - MIACRE Performed By: #### L 500.4050, L502.0250, L501.9985 #### [facility] [address] [place], [address] MALB:CRE 41.2 mg/g CRE High <30 mg/g CRE [facility] Comment on above: Order Comment: Order Date: 11/15/23 Order Info: [id number] - MIACRE Performed By: #### L 500.4050, L502.0250, L501.9985 #### [facility] [address] [place], [address] MICROALBUMIN,UR 10.0 mg/L Normal NO RANGE EST. [facility] Comment on above: Order Comment: Order Date: 11/15/23 Order Info: [id number] - MIACRE Performed By: #### L 500.4050, L502.0250, L501.9985 #### [facility] [address] [place], [address] Basophil percentageOrdered B y: Guilherme Erickson on 02-15-2023 Bilirubin [Mass/Vol] 0.50 mg/dL 0.20-1.00 [facility] Comment on above: For patients on eltr ombopag therapy, use of Dimension [place] TBIL is not recommended. Chloride [Moles/Vol] 104 mmol/L 98-107 [facility] Glucose [Mass/Vol] 101 mg/dL 74-106 [facility] Comment on above: Fasting Glucose resu lt from 100 to 125 mg/dL suggests IMPAIRED HOMEOSTASIS per A.D.A. criteria. Potassium [Moles/Vol] 3.9 mmol/L 3.5-5.1 [facility] Protein [Mass/Vol] 8.9 g/dL 6.4-8.2 [facility] Sodium [Moles/Vol] 138 mmol/L 136-145 [facility] Laboratory - Chemistry and C hemistry - challengeOrdered By: Guilherme Erickson on 02-15-2023 ALP [Catalytic activity/Vol] 60 U/L 45-117 [facility] ALT [Catalytic activity/Vol] 33 U/L 16-61 [facility] CO2 [Moles/Vol] 29.0 mmol/L 21.0-32.0 [facility] Globulin (S) [Mass/Vol] 4.8 g/dL 2.2-4.2 [facility] Urea nitrogen/Creatinine [Mass ratio] 23.1 mg/mg 10-20 [facility] No Panel InformationOrdered By: Guilherme Erickson on 02-15-2023 Estimated GFR (MDRD) Amer 70 mL/min >60 [facility] Comment on above: GFR Calc Estimated GFR (MDRD) Non-Af Amer 58 mL/min >60 [facility] Comment on above: Non- GFR Calc Prostate Specific Antigen Total 2.03 ng/mL 0.0-4.0 [facility] Comment on above: This test was perfor med using the TPSA assay method for [facility] system. Values obtained with differentassay methods cannot be used interchangably.When changing PSA assays in the course of monitoring apatient, additional sequential testing should be carriedout to confirm baseline values. Serum or plasma albumin jessica urement (mass/volume)Ordered By: Guilherme Erickson on 02-15-2023 Albumin [Mass/Vol] 4.1 g/dL 3.2-5.0 [facility] Serum or plasma albumin/glob ulin mass ratioOrdered By: Guilherme Erickson on 02-15-2023 Albumin/Globulin [Mass ratio] 0.9 {ratio} 0.9-2.4 [facility] Serum or plasma calcium jessica urement (mass/volume)Ordered By: Guilherme Erickson on 02-15-2023 Calcium [Mass/Vol] 9.3 mg/dL 8.5-10.1 [facility] Serum or plasma creatinine m easurement (mass/volume)Ordered By: Guilherme Erickson on 02-15-2023 Creatinine [Mass/Vol] 1.30 mg/dL 0.70-1.30 [facility] Comment on above: The validity of the calculated GFR & GFRAA in patients over 70 years has not been determined. Clinical correlation is essential. Serum or plasma urea nitroge n measurement (mass/volume)Ordered By: Guilherme Erickson on 02-15-2023 Urea nitrogen [Mass/Vol] 30 mg/dL 7- [facility] Thin prep Papanicolaou smear with manual screeningOrdered By: Guilherme Erickson on 02-15-2023 Thin prep Papanicolaou smear with manual screening 24 U/L [facility] Thin prep Papanicolaou smear with manual screening 5 5-15 [facility] Whole blood hemoglobin A1c/t otal hemoglobin ratio (mass fraction)Ordered By: Guilherme Erickson on 02-15-2023 HbA1c (Bld) [Mass fraction] 6.1 % 3.8-5.6 [facility] Comment on above: Normal < 5.7 % Predi abetic 5.7 - 6.4 % Diabetic >or= 6.5 % Please note range changes. Basophil percentageOrdered B y: Dr. Erickson on 10-12-2022 Bilirubin [Mass/Vol] 0.60 mg/dL 0.20-1.00 [facility] Comment on above: For patients on eltr ombopag therapy, use of Dimension [place] TBIL is not recommended. Chloride [Moles/Vol] 102 mmol/L 98-107 [facility] Glucose [Mass/Vol] 101 mg/dL 74-106 [facility] Comment on above: Fasting Glucose resu lt from 100 to 125 mg/dL suggests IMPAIRED HOMEOSTASIS per A.D.A. criteria. Potassium [Moles/Vol] 3.7 mmol/L 3.5-5.1 [facility] Protein [Mass/Vol] 8.2 g/dL 6.4-8.2 [facility] Sodium [Moles/Vol] 134 mmol/L 136-145 [facility] WBC (Bld) [#/Vol] 5.8 10*3/uL 4.4-11.0 [facility] Blood erythrocytes count (nu mber/volume)Ordered By: Dr. Erickson on 10-12-2022 RBC (Bld) [#/Vol] 4.29 10*6/uL 4.6-6.2 [facility] Blood hemoglobin measurement (mass/volume)Ordered By: Dr. Erickson on 10-12-2022 Hemoglobin (Bld) [Mass/Vol] 13.7 g/dL 13.0-16.5 [facility] Blood platelet mean volumeOr dered By: Dr. Erickson on 10-12-2022 Platelet mean volume (Bld) [Entitic vol] 11.1 fL 6.2-12.0 [facility] Determination of erythrocyte mean corpuscular volume (MCV)Ordered By: Dr. Erickson on 10-12-2022 MCV (RBC) [Entitic vol] 97.0 fL 80-94 [facility] Hematocrit Auto (Bld) [Volum e fraction]Ordered By: Dr. Erickson on 10-12-2022 Hematocrit (Bld) [Volume fraction] 41.6 % 40-54 [facility] Laboratory - Chemistry and C hemistry - challengeOrdered By: Dr. Erickson on 10-12-2022 ALP [Catalytic activity/Vol] 60 U/L 45-117 [facility] ALT [Catalytic activity/Vol] 25 U/L 16-61 [facility] CO2 [Moles/Vol] 27.0 mmol/L 21.0-32.0 [facility] Globulin (S) [Mass/Vol] 4.3 g/dL 2.2-4.2 [facility] Urea nitrogen/Creatinine [Mass ratio] 20.8 mg/mg 10-20 [facility] Laboratory - Hematology and Cell countsOrdered By: Dr. Erickson on 10-12-2022 Erythrocyte distribution width (RBC) [Entitic vol] 51.6 fL 35.1-43.9 [facility] Erythrocyte distribution width (RBC) [Ratio] 14.5 % 11.6-14.6 [facility] MCH (RBC) [Entitic mass] 31.9 pg 27.0-32.0 [facility] Auto (RBC) [Mass/Vol]Or dered By: Dr. Erickson on 10-12-2022 MCHC (RBC) [Mass/Vol] 32.9 g/dL 32-36 [facility] No Panel InformationOrdered By: Dr. Erickson on 10-12-2022 Estimated GFR (MDRD) Amer 70 mL/min >60 [facility] Comment on above: GFR Calc Estimated GFR (MDRD) Non-Af Amer 58 mL/min >60 [facility] Comment on above: Non- GFR Calc Prostate Specific Antigen Total 1.54 ng/mL 0.0-4.0 [facility] Comment on above: This test was perfor med using the TPSA assay method for [employer] chemistry system. Values obtained with differentassay methods cannot be used interchangably.When changing PSA assays in the course of monitoring apatient, additional sequential testing should be carriedout to confirm baseline values. Thyroid Stimulating Hormone (TSH) 2.31 uIU/mL 0.358-3.74 [facility] Urine Microalbumin/Creatinin e Ratio 9.9 mg/g CRE <30 [facility] Platelets bldOrdered By: Dr. Erickson on 10-12-2022 Platelets (Bld) [#/Vol] 210 10*3/uL 150-450 [facility] Serum or plasma albumin jessica urement (mass/volume)Ordered By: Dr. Erickson on 10-12-2022 Albumin [Mass/Vol] 3.9 g/dL 3.2-5.0 [facility] Serum or plasma albumin/glob ulin mass ratioOrdered By: Dr. Erickson on 10-12-2022 Albumin/Globulin [Mass ratio] 0.9 {ratio} 0.9-2.4 [facility] Serum or plasma calcium jessica urement (mass/volume)Ordered By: Dr. Erickson on 10-12-2022 Calcium [Mass/Vol] 8.8 mg/dL 8.5-10.1 [facility] Serum or plasma creatinine m easurement (mass/volume)Ordered By: Dr. Erickson on 10-12-2022 Creatinine [Mass/Vol] 1.30 mg/dL 0.70-1.30 [facility] Comment on above: The validity of the calculated GFR & GFRAA in patients over 70 years has not been determined. Clinical correlation is essential. Serum or plasma urea nitroge n measurement (mass/volume)Ordered By: Dr. Erickson on 10-12-2022 Urea nitrogen [Mass/Vol] 27 mg/dL 7-18 [facility] Thin prep Papanicolaou smear with manual screeningOrdered By: Dr. Erickson on 10-12-2022 Thin prep Papanicolaou smear with manual screening 24 U/L 15-37 [facility] Thin prep Papanicolaou smear with manual screening 5 5-15 [facility] Thin prep Papanicolaou smear with manual screening 11.8 mg/L NO RANGE EST. [facility] Urine creatinine measurement (mass/volume)Ordered By: Dr. Erickson on 10-12-2022 Creatinine (U) [Mass/Vol] 119.00 mg/dL NO RANGE EST. [facility] Whole blood hemoglobin A1c/t otal hemoglobin ratio (mass fraction)Ordered By: Dr. Erickson on 10-12-2022 HbA1c (Bld) [Mass fraction] 6.1 % 3.8-5.6 [facility] Comment on above: Normal < 5.7 % Predi abetic 5.7 - 6.4 % Diabetic >or= 6.5 % Please note range changes. No Panel Informationon 04-15 Prostate Specific Antigen Screen 1.43 ng/mL 0.00-4.00 [facility] Work Phone: Comment on above: This test was perfor med using the TPSA assay method for the[facility] chemistry system. Values obtained with differentassay methods cannot be used interchangably.When changing PSA assays in the course of monitoring apatient, additional sequential testing should be carriedout to confirm baseline values. Absolute lymphocyte counton 02-04-2022 Lymphocytes Auto (Unsp spec) [#/Vol] 1.32 10*3/uL 0.83-4.51 [facility] Work Phone: Basophil percentageon 2021 Basophils/100 WBC (Bld) 0.3 % 0-1 [facility] Work Phone: Bilirubin [Mass/Vol] 0.60 mg/dL 0.20-1.00 [facility] Work Phone: Comment on above: For patients on eltr ombopag therapy, use of Dimension [place] TBIL is not recommended. Chloride [Moles/Vol] 103 mmol/L 98-107 [facility] Work Phone: Eosinophils/100 WBC (Bld) 2.0 % 0-5 [facility] Work Phone: Glucose [Mass/Vol] 97 mg/dL 74-106 [facility] Work Phone: Neutrophils (Bld) [#/Vol] 4.2 10*3/uL 2.0-7.7 [facility] Work Phone: Neutrophils/100 WBC (Bld) 63.1 % 47-70 [facility] Work Phone: Potassium [Moles/Vol] 4.1 mmol/L 3.5-5.1 [facility] Work Phone: Protein [Mass/Vol] 8.8 g/dL 6.4-8.2 [facility] Work Phone: Sodium [Moles/Vol] 139 mmol/L 136-145 [facility] Work Phone: WBC (Bld) [#/Vol] 6.6 10*3/uL 4.4-11.0 [facility] Work Phone: [phone] Blood erythrocytes count (nu mber/volume)on 02-04-2022 RBC (Bld) [#/Vol] 4.14 10*6/uL 4.6-6.2 [facility] Work Phone: Blood hemoglobin measurement (mass/volume)on 02-04-2022 Hemoglobin (Bld) [Mass/Vol] 13.1 g/dL 13.0-16.5 [facility] Work Phone: Blood lymphocytes/100 leukoc yteson 02-04-2022 Lymphocytes/100 WBC (Bld) 19.9 % 19-41 [facility] Work Phone: Blood monocytes/100 leukocyt eson 02-04-2022 Monocytes/100 WBC (Bld) 14.2 % 0-10 [facility] Work Phone: Blood platelet mean volumeon 02-04-2022 Platelet mean volume (Bld) [Entitic vol] 11.3 fL 6.2-12.0 [facility] Work Phone: Determination of erythrocyte mean corpuscular volume (MCV)on 02-04-2022 MCV (RBC) [Entitic vol] 98.8 fL 80-94 [facility] Work Phone: Erythrocyte sedimentation ra cecilia 02-04-2022 ESR (Bld) [Velocity] 38 mm/h 0-20 [facility] Work Phone: Hematocrit Auto (Bld) [Volum e fraction]on 02-04-2022 Hematocrit (Bld) [Volume fraction] 40.9 % 40-54 [facility] Work Phone: [phone] Laboratory - Chemistry and C hemistry - challengeon 02-04-2022 ALP [Catalytic activity/Vol] 59 U/L 45-117 [facility] Work Phone: ALT [Catalytic activity/Vol] 35 U/L 16-61 [facility] Work Phone: CO2 [Moles/Vol] 28.0 mmol/L 21.0-32.0 [facility] Work Phone: [phone] Globulin (S) [Mass/Vol] 4.7 g/dL 2.2-4.2 [facility] Work Phone: [phone] Urea nitrogen/Creatinine [Mass ratio] 22.5 mg/mg 10-20 [facility] Work Phone: Laboratory - Hematology and Cell countson 02-04-2022 Erythrocyte distribution width (RBC) [Entitic vol] 53.0 fL 35.1-43.9 [facility] Work Phone: [phone] Erythrocyte distribution width (RBC) [Ratio] 14.6 % 11.6-14.6 [facility] Work Phone: Immature granulocytes/100 WBC (Bld) 0.500 % 0.0-0.9 [facility] Work Phone: Comment on above: IG% - Immature Granu locytes (promyelocytes, myelocytes and metamyelocytes) > 1% indicates that a LEFT SHIFT is Present. MCH (RBC) [Entitic mass] 31.6 pg 27.0-32.0 [facility] Work Phone: Nucleated RBC/100 WBC (Bld) [Ratio] 0 % 0-5 [facility] Work Phone: MCHC Auto (RBC) [Mass/Vol]on 02-04-2022 MCHC (RBC) [Mass/Vol] 32.0 g/dL 32-36 [facility] Work Phone: No Panel Informationon 02-04 Estimated GFR (MDRD) Amer 70 mL/min >60 [facility] Work Phone: Comment on above: GFR Calc Estimated GFR (MDRD) Non-Af Amer 58 mL/min >60 [facility] Work Phone: Comment on above: Non- GFR Calc Platelets bldon 02-04-2022 Platelets (Bld) [#/Vol] 211 10*3/uL 150-450 [facility] Work Phone: Serum or plasma C reactive p rotein measurement (mass/volume)on 02-04-2022 CRP [Mass/Vol] 3.68 mg/L 0.0-3.0 [facility] Work Phone: Comment on above: C-Reactive Protein ( CRP) provides useful information for thediagnosis, therapy and monitoring of inflammatory processesand associated diseases. For the evaluation of Relative Riskfor Cardiovascular Disease, a High Sensitivity CRP (HSCRP)should be ordered. Serum or plasma albumin jessica urement (mass/volume)on 02-04-2022 Albumin [Mass/Vol] 4.1 g/dL 3.2-5.0 [facility] Work Phone: Serum or plasma albumin/glob ulin mass ratioon 02-04-2022 Albumin/Globulin [Mass ratio] 0.9 {ratio} 0.9-2.4 [facility] Work Phone: Serum or plasma calcium jessica urement (mass/volume)on 02-04-2022 Calcium [Mass/Vol] 9.3 mg/dL 8.5-10.1 [facility] Work Phone: Serum or plasma creatinine m easurement (mass/volume)on 02-04-2022 Creatinine [Mass/Vol] 1.29 mg/dL 0.70-1.30 [facility] Work Phone: Comment on above: The validity of the calculated GFR & GFRAA in patients over 70 years has not been determined. Clinical correlation is essential. Serum or plasma urea nitroge n measurement (mass/volume)on 02-04-2022 Urea nitrogen [Mass/Vol] 29 mg/dL 7-18 [facility] Work Phone: Thin prep Papanicolaou smear with manual screeningon 02-04-2022 Thin prep Papanicolaou smear with manual screening 26 U/L 15-37 [facility] Work Phone: Thin prep Papanicolaou smear with manual screening 8 5-15 [facility] Work Phone: Absolute lymphocyte counton 10-26-2021 Lymphocytes Auto (Unsp spec) [#/Vol] 1.57 10*3/uL 0.83-4.51 [facility] Work Phone: Basophil percentageon 2021 Basophils/100 WBC (Bld) 0.3 % 0-1 [facility] Work Phone: Bilirubin [Mass/Vol] 0.50 mg/dL 0.20-1.00 [facility] Work Phone: Comment on above: For patients on eltr ombopag therapy, use of Dimension [place] TBIL is not recommended. Chloride [Moles/Vol] 101 mmol/L 98-107 [facility] Work Phone: Eosinophils/100 WBC (Bld) 2.0 % 0-5 [facility] Work Phone: Glucose [Mass/Vol] 122 mg/dL 74-106 [facility] Work Phone: Comment on above: Fasting Glucose resu lt from 100 to 125 mg/dL suggests IMPAIRED HOMEOSTASIS per A.D.A. criteria. Neutrophils (Bld) [#/Vol] 5.4 10*3/uL 2.0-7.7 [facility] Work Phone: Neutrophils/100 WBC (Bld) 69.1 % 47-70 [facility] Work Phone: Potassium [Moles/Vol] 3.4 mmol/L 3.5-5.1 [facility] Work Phone: Protein [Mass/Vol] 8.7 g/dL 6.4-8.2 [facility] Work Phone: [phone] Sodium [Moles/Vol] 138 mmol/L 136-145 [facility] Work Phone: WBC (Bld) [#/Vol] 7.9 10*3/uL 4.4-11.0 [facility] Work Phone: Blood erythrocytes count (nu mber/volume)on 10-26-2021 RBC (Bld) [#/Vol] 4.29 10*6/uL 4.6-6.2 [facility] Work Phone: Blood hemoglobin measurement (mass/volume)on 10-26-2021 Hemoglobin (Bld) [Mass/Vol] 13.6 g/dL 13.0-16.5 [facility] Work Phone: Blood lymphocytes/100 leukoc yteson 10-26-2021 Lymphocytes/100 WBC (Bld) 20.0 % 19-41 [facility] Work Phone: Blood monocytes/100 leukocyt eson 10-26-2021 Monocytes/100 WBC (Bld) 8.3 % 0-10 [facility] Work Phone: Blood platelet mean volumeon 10-26-2021 Platelet mean volume (Bld) [Entitic vol] 11.4 fL 6.2-12.0 [facility] Work Phone: Determination of erythrocyte mean corpuscular volume (MCV)on 10-26-2021 MCV (RBC) [Entitic vol] 96.0 fL 80-94 [facility] Work Phone: Erythrocyte sedimentation ra cecilia 10-26-2021 ESR (Bld) [Velocity] 38 mm/h 0-20 [facility]: Hematocrit Auto (Bld) [Volum e fraction]on 10-26-2021 Hematocrit (Bld) [Volume fraction] 41.2 % 40-54 [facility] Work Phone: Laboratory - Chemistry and C hemistry - challengeon 10-26-2021 ALP [Catalytic activity/Vol] 57 U/L 45-117 [facility] Work Phone: ALT [Catalytic activity/Vol] 32 U/L 16-61 [facility] Work Phone: CO2 [Moles/Vol] 28.0 mmol/L 21.0-32.0 [facility] Work Phone: Globulin (S) [Mass/Vol] 4.8 g/dL 2.2-4.2 [facility] Work Phone: Urea nitrogen/Creatinine [Mass ratio] 21.5 mg/mg 10-20 [facility] Work Phone: Laboratory - Hematology and Cell countson 10-26-2021 Erythrocyte distribution width (RBC) [Entitic vol] 50.4 fL 35.1-43.9 [facility] Work Phone: Erythrocyte distribution width (RBC) [Ratio] 14.3 % 11.6-14.6 [facility] Work Phone: Immature granulocytes/100 WBC (Bld) 0.300 % 0.0-0.9 [facility] Work Phone: Comment on above: IG% - Immature Granu locytes (promyelocytes, myelocytes and metamyelocytes) > 1% indicates that a LEFT SHIFT is Present. MCH (RBC) [Entitic mass] 31.7 pg 27.0-32.0 [facility] Work Phone: Nucleated RBC/100 WBC (Bld) [Ratio] 0 % 0-5 [facility] Work Phone: MCHC Auto (RBC) [Mass/Vol]on 10-26-2021 MCHC (RBC) [Mass/Vol] 33.0 g/dL 32-36 [facility] Work Phone: No Panel Informationon 10-26 Estimated GFR (MDRD) Amer 70 mL/min >60 [facility] Work Phone: Comment on above: GFR Calc Estimated GFR (MDRD) Non-Af Amer 58 mL/min >60 [facility] Work Phone: Comment on above: Non- GFR Calc Hepatitis B Surface Antigen Non-Reactive Nonreactive [facility] Work Phone: Hepatitis C Antibody Non-Reactive Nonreactive [facility] Work Phone: Comment on above: Non Reactive: < 0.8 Equivocal: >/= 0.8 to < 1.0 Reactive: >/= 1.0The CDC recommends that a reactive/equivocal HCV antibody result be followed up by the HCV Nucleic Acid Amplificationtest (184639) Platelets bldon 10-26-2021 Platelets (Bld) [#/Vol] 217 10*3/uL 150-450 [facility] Work Phone: Serum cyclic citrullinated p eptide IgG antibody assay (units/volume)on 10-26-2021 Cyclic citrullinated peptide IgG Qn 7 units 0-19 [facility] Work Phone: Comment on above: Negative <20 Weak po sitive 20 - 39 Moderate positive 40 - 59 Strong positive >59Performed at: [facility] - [facility] [address] [id number] Director: Mario Richardson MD, Phone: [phone] Serum hepatitis B virus surf dyana antibody IgG detectionon 10-26-2021 HBV surface IgG Ql (S) Reactive [facility] Work Phone: [phone] Comment on above: Non Reactive: Incons istent with immunity less than <10 mIU/mL Reactive: Consistent with immunity greater than or equal to 10 mIU/mL Serum or plasma C reactive p rotein measurement (mass/volume)on 10-26-2021 CRP [Mass/Vol] 3.66 mg/L 0.0-3.0 [facility] Work Phone: Comment on above: C-Reactive Protein ( CRP) provides useful information for thediagnosis, therapy and monitoring of inflammatory processesand associated diseases. For the evaluation of Relative Riskfor Cardiovascular Disease, a High Sensitivity CRP (HSCRP)should be ordered. Serum or plasma albumin jessica urement (mass/volume)on 10-26-2021 Albumin [Mass/Vol] 3.9 g/dL 3.2-5.0 [facility] Work Phone: Serum or plasma albumin/glob ulin mass ratioon 10-26-2021 Albumin/Globulin [Mass ratio] 0.8 {ratio} 0.9-2.4 [facility] Work Phone: Serum or plasma calcium jessica urement (mass/volume)on 10-26-2021 Calcium [Mass/Vol] 8.8 mg/dL 8.5-10.1 [facility] Work Phone: Serum or plasma creatinine m easurement (mass/volume)on 10-26-2021 Creatinine [Mass/Vol] 1.30 mg/dL 0.70-1.30 [facility] Work Phone: Comment on above: The validity of the calculated GFR & GFRAA in patients over 70 years has not been determined. Clinical correlation is essential. Serum or plasma urea nitroge n measurement (mass/volume)on 10-26-2021 Urea nitrogen [Mass/Vol] 28 mg/dL 7-18 [facility] Work Phone: Thin prep Papanicolaou smear with manual screeningon 10-26-2021 Thin prep Papanicolaou smear with manual screening 27 U/L 15-37 [facility] Work Phone: Thin prep Papanicolaou smear with manual screening 9 5-15 [facility] Work Phone: Absolute lymphocyte counton 10-01-2021 Lymphocytes Auto (Unsp spec) [#/Vol] 1.33 10*3/uL 0.83-4.51 [facility] Work Phone: Basophil percentageon 2021 Basophil percentage > 8.0 [facility] Work [facility]: Basophils/100 WBC (Bld) 0.1 % 0-1 [facility] Work Phone: Bilirubin [Mass/Vol] 0.60 mg/dL 0.20-1.00 [facility] Work Phone: Comment on above: For patients on eltr ombopag therapy, use of Dimension [place] TBIL is not recommended. Chloride [Moles/Vol] 102 mmol/L 98-107 [facility] Work Phone: Eosinophils/100 WBC (Bld) 2.5 % 0-5 [facility] Work Phone: Glucose [Mass/Vol] 93 mg/dL 74-106 [facility] Work Phone: Neutrophils (Bld) [#/Vol] 4.2 10*3/uL 2.0-7.7 [facility] Work Phone: Neutrophils/100 WBC (Bld) 62.5 % 47-70 [facility] Work Phone: Potassium [Moles/Vol] 3.8 mmol/L 3.5-5.1 [facility] Work Phone: Protein [Mass/Vol] 8.7 g/dL 6.4-8.2 [facility] Work Phone: Sodium [Moles/Vol] 135 mmol/L 136-145 [facility] Work Phone: WBC (Bld) [#/Vol] 6.8 10*3/uL 4.4-11.0 [facility] Work Phone: Blood erythrocytes count (nu mber/volume)on 10-01-2021 RBC (Bld) [#/Vol] 4.24 10*6/uL 4.6-6.2 [facility] Work Phone: Blood hemoglobin measurement (mass/volume)on 10-01-2021 Hemoglobin (Bld) [Mass/Vol] 13.2 g/dL 13.0-16.5 [facility] Work Phone: Blood lymphocytes/100 leukoc yteson 10-01-2021 Lymphocytes/100 WBC (Bld) 19.7 % 19-41 [facility] Work Phone: Blood monocytes/100 leukocyt eson 10-01-2021 Monocytes/100 WBC (Bld) 14.9 % 0-10 [facility] Work Phone: Blood platelet mean volumeon 10-01-2021 Platelet mean volume (Bld) [Entitic vol] 11.2 fL 6.2-12.0 [facility] Work Phone: Determination of erythrocyte mean corpuscular volume (MCV)on 10-01-2021 MCV (RBC) [Entitic vol] 96.2 fL 80-94 [facility] Work Phone: Hematocrit Auto (Bld) [Volum e fraction]on 10-01-2021 Hematocrit (Bld) [Volume fraction] 40.8 % 40-54 [facility] Work Phone: Laboratory - Chemistry and C hemistry - challengeon 10-01-2021 ALP [Catalytic activity/Vol] 54 U/L 45-117 [facility] Work Phone: ALT [Catalytic activity/Vol] 40 U/L 16-61 [facility] Work Phone: CO2 [Moles/Vol] 28.0 mmol/L 21.0-32.0 [facility] Work Phone: Globulin (S) [Mass/Vol] 4.7 g/dL 2.2-4.2 [facility] Work Phone: Urea nitrogen/Creatinine [Mass ratio] 26.2 mg/mg 10-20 [facility] Work Phone: Laboratory - Hematology and Cell countson 10-01-2021 Erythrocyte distribution width (RBC) [Entitic vol] 50.1 fL 35.1-43.9 [facility] Work Phone: Erythrocyte distribution width (RBC) [Ratio] 14.3 % 11.6-14.6 [facility] Work Phone: Immature granulocytes/100 WBC (Bld) 0.300 % 0.0-0.9 [facility] Work Phone: Comment on above: IG% - Immature Granu locytes (promyelocytes, myelocytes and metamyelocytes) > 1% indicates that a LEFT SHIFT is Present. MCH (RBC) [Entitic mass] 31.1 pg 27.0-32.0 [facility] Work Phone: Nucleated RBC/100 WBC (Bld) [Ratio] 0 % 0-5 [facility] Work Phone: MCHC Auto (RBC) [Mass/Vol]on 10-01-2021 MCHC (RBC) [Mass/Vol] 32.4 g/dL 32-36 [facility] Work Phone: No Panel Informationon 10-01 Centromere B Antibody <0.2 AI [facility] Work Phone: Estimated GFR (MDRD) Amer 70 mL/min >60 [facility] Work Phone: Comment on above: GFR Calc Estimated GFR (MDRD) Non-Af Amer 58 mL/min >60 [facility] Work Phone: Comment on above: Non- GFR Calc GOLF COU[employer]SE PATROLLER Antibody 0.3 AI [facility] Work Phone: Platelets bldon 10-01-2021 Platelets (Bld) [#/Vol] 219 10*3/uL 150-450 [facility] Work Phone: Serum DNA double strand anti body assay (units/volume)on 06-02-2022 DNA double strand Ab Qn (S) 6 [IU]/mL [facility] Work Phone: Comment on above: Negative <5 Equivoca l 5 - 9 Positive >9 Serum Carina-1 antibody assay (u nits/volume)on 10-01-2021 Carina-1 extractable nuclear Ab Qn (S) <0.2 [facility] Work Phone: Serum Scl-70 extractable nuc lear antibody assay (units/volume)on 10-01-2021 SCL-70 extractable nuclear Ab Qn (S) <0.2 [facility] Work Phone: Serum Erickson extractable nucl ear antibody detectionon 10-01-2021 Erickson extractable nuclear Ab Ql (S) 0.4 [facility] Work Phone: Serum or plasma albumin jessica urement (mass/volume)on 10-01-2021 Albumin [Mass/Vol] 4.0 g/dL 3.2-5.0 [facility] Work Phone: Serum or plasma albumin/glob ulin mass ratioon 10-01-2021 Albumin/Globulin [Mass ratio] 0.9 {ratio} 0.9-2.4 [facility] Work Phone: Serum or plasma calcium jessica urement (mass/volume)on 10-01-2021 Calcium [Mass/Vol] 8.9 mg/dL 8.5-10.1 [facility] Work Phone: Serum or plasma creatinine m easurement (mass/volume)on 10-01-2021 Creatinine [Mass/Vol] 1.30 mg/dL 0.70-1.30 [facility] Work Phone: Comment on above: The validity of the calculated GFR & GFRAA in patients over 70 years has not been determined. Clinical correlation is essential. Serum or plasma urea nitroge n measurement (mass/volume)on 10-01-2021 Urea nitrogen [Mass/Vol] 34 mg/dL 7-18 [facility] Work Phone: Serum rheumatoid factor dete ctionon 10-01-2021 Rheumatoid factor Ql (S) 114.0 IU/mL <15 [facility] Work Phone: Thin prep Papanicolaou smear with manual screeningon 10-01-2021 Thin prep Papanicolaou smear with manual screening 28 U/L 15-37 [facility] Work Phone: Thin prep Papanicolaou smear with manual screening 5 5-15 [facility] Work Phone: Basophil percentageon 2021 Creatinine [Mass/Vol] 1.1 mg/dL 0.70-1.30 [facility] Work Phone: No Panel Informationon 09-24 Bedside Estimated GFR (eGFR) > 60.0000 mL/min >60 [facility] Work Phone: Basophil percentageon 2021 Basophil percentage > 8.0 [facility] Work Phone: No Panel Informationon 08-24 Centromere B Antibody <0.2 [facility] Work Phone: GOLF [employer]RO[employer]ER Antibody 0.4 [facility] Work Phone: Serum DNA double strand anti body assay (units/volume)on 08-24-2021 DNA double strand Ab Qn (S) 5 [IU]/mL [facility] Work Phone: Comment on above: Negative <5 Equivoca l 5 - 9 Positive >9 Serum Carina-1 antibody assay (u nits/volume)on 08-24-2021 Carina-1 extractable nuclear Ab Qn (S) <0.2 [facility] Work Phone: Serum Scl-70 extractable nuc lear antibody assay (units/volume)on 08-24-2021 SCL-70 extractable nuclear Ab Qn (S) <0.2 [facility] Work Phone: Serum Erickson extractable nucl ear antibody detectionon 08-24-2021 Erickson extractable nuclear Ab Ql (S) 0.4 [facility] Work Phone: 24 hour urine alpha 2 globul in/total protein ratio by electrophoresis (mass fraction)on 08-11-2021 Alpha 2 globulin Elph (24H U) [Mass fraction] 11.9 % [facility] Work Phone: 24 hour urine beta globulin/ total protein ratio by electrophoresis (mass fraction)on 08-11-2021 Beta globulin Elph (24H U) [Mass fraction] 20.2 % [facility] Work Phone: 24 hour urine gamma globulin /total protein ratio by electrophoresis (mass fraction)on 08-11-2021 Gamma globulin Elph (24H U) [Mass fraction] 28.5 % [facility] Work Phone: Absolute lymphocyte counton 08-11-2021 Lymphocytes Auto (Unsp spec) [#/Vol] 1.30 10*3/uL 0.83-4.51 [facility] Work Phone: Alternaria alternata IgE ser umon 08-11-2021 A. alternata IgE Qn (S) <0.10 kU/L Class 0 [facility] Work Phone: Basophil percentageon 2021 Basophils/100 WBC (Bld) 0.3 % 0-1 [facility] Work Phone: Bilirubin [Mass/Vol] 0.50 mg/dL 0.20-1.00 [facility] Work Phone: Comment on above: For patients on eltr ombopag therapy, use of Dimension [place] TBIL is not recommended. Chloride [Moles/Vol] 102 mmol/L 98-107 [facility] Work Phone: Eosinophils/100 WBC (Bld) 2.0 % 0-5 [facility] Work Phone: Glucose [Mass/Vol] 102 mg/dL 74-106 [facility] Work Phone: Comment on above: Fasting Glucose resu lt from 100 to 125 mg/dL suggests IMPAIRED HOMEOSTASIS per A.D.A. criteria. Neutrophils (Bld) [#/Vol] 4.8 10*3/uL 2.0-7.7 [facility] Work Phone: Neutrophils/100 WBC (Bld) 68.2 % 47-70 [facility] Work Phone: Potassium [Moles/Vol] 3.7 mmol/L 3.5-5.1 [facility]: Protein [Mass/Vol] 8.9 g/dL 6.4-8.2 [facility] Work Phone: Sodium [Moles/Vol] 136 mmol/L 136-145 [facility] Work Phone: WBC (Bld) [#/Vol] 7.0 10*3/uL 4.4-11.0 [facility] Work Phone: Blood erythrocytes count (nu mber/volume)on 08-11-2021 RBC (Bld) [#/Vol] 4.30 10*6/uL 4.6-6.2 [facility] Work Phone: Blood hemoglobin measurement (mass/volume)on 08-11-2021 Hemoglobin (Bld) [Mass/Vol] 13.6 g/dL 13.0-16.5 [facility] Work Phone: Blood lymphocytes/100 leukoc yteson 08-11-2021 Lymphocytes/100 WBC (Bld) 18.7 % 19-41 [facility] Work Phone: Blood monocytes/100 leukocyt eson 08-11-2021 Monocytes/100 WBC (Bld) 10.5 % 0-10 [facility] Work Phone: Blood platelet mean volumeon 08-11-2021 Platelet mean volume (Bld) [Entitic vol] 11.0 fL 6.2-12.0 [facility] Work Phone: Determination of erythrocyte mean corpuscular volume (MCV)on 08-11-2021 MCV (RBC) [Entitic vol] 95.6 fL 80-94 [facility] Work Phone: Hematocrit Auto (Bld) [Volum e fraction]on 08-11-2021 Hematocrit (Bld) [Volume fraction] 41.1 % 40-54 [facility] Work Phone: Laboratory - Chemistry and C hemistry - challengeon 08-11-2021 ALP [Catalytic activity/Vol] 55 U/L 45-117 [facility] Work Phone: ALT [Catalytic activity/Vol] 35 U/L 16-61 [facility] Work Phone: CO2 [Moles/Vol] 27.0 mmol/L 21.0-32.0 [facility] Work Phone: Globulin (S) [Mass/Vol] 4.8 g/dL 2.2-4.2 [facility] Work Phone: Urea nitrogen/Creatinine [Mass ratio] 26.7 mg/mg 10-20 [facility] Work Phone: Laboratory - Hematology and Cell countson 08-11-2021 Erythrocyte distribution width (RBC) [Entitic vol] 47.3 fL 35.1-43.9 [facility] Work Phone: Erythrocyte distribution width (RBC) [Ratio] 13.3 % 11.6-14.6 [facility] Work Phone: Immature granulocytes/100 WBC (Bld) 0.300 % 0.0-0.9 [facility] Work Phone: Comment on above: IG% - Immature Granu locytes (promyelocytes, myelocytes and metamyelocytes) > 1% indicates that a LEFT SHIFT is Present. MCH (RBC) [Entitic mass] 31.6 pg 27.0-32.0 [facility] Work Phone: Nucleated RBC/100 WBC (Bld) [Ratio] 0 % 0-5 [facility] Work Phone: MCHC Auto (RBC) [Mass/Vol]on 08-11-2021 MCHC (RBC) [Mass/Vol] 33.1 g/dL 32-36 [facility] Work Phone: No Panel Informationon 08-11 Addendum Document Comment [facility] Work Phone: Comment on above: The SPE pattern refl ects a polyclonal increase in gammaglobulin. Hypergammaglobulinemia is found in a wide varietyof infectious, non-infectious, and autoimmune diseasestates. Evidence of monoclonal protein is not apparent. Xrdlh-0-Dejybdurh 0.2 g/dL [facility] Work Phone: Puhme-8-Bmjccesni 1.0 g/dL [facility] Work Phone: Anti-Nuclear Antibody Screen Positive Negative [facility] Work Phone: Cat Hair Allergen <0.10 kU/L Class 0 [facility] Work Phone: Common Ragweed (Short) Allergen <0.10 kU/L Class 0 [facility] Work Phone: Comment on above: RAST ZONE 5 PER ORDE R Estimated GFR (MDRD) Amer 69 mL/min >60 [facility] Work Phone: Comment on above: GFR Calc Estimated GFR (MDRD) Non-Af Amer 57 mL/min >60 [facility] Work Phone: Comment on above: Non- GFR Calc Gamma Globulins 2.2 g/dL [facility] Work Phone: Immunoglobulin E 58 IU/mL [facility] Work Phone: Maple (Pike) Allergen IgE Ab TNP [facility] Work Phone: Comment on above: Test not performedTe st not performed. Insufficient specimen to perform orcomplete analysis. Mouse Urine Allergen IgE Antibody <0.10 kU/L Class 0 [facility] Work Phone: RAST Comment Comment [facility] Work Phone: Comment on above: Levels of Specific I gE Class Description of Class ----- < 0.10 0 Negative 0.10 - 0.31 0/I Equivocal/Low 0.32 - 0.55 I Low 0.56 - 1.40 II Moderate 1.41 - 3.90 III High 3.91 - 19.00 IV Very High 19.01 - 100.00 V Very High >100.00 Very High [place] Allergen [facility] Work Phone: Comment on above: Test not performedTe st not performed. Insufficient specimen to perform orcomplete analysis. Platelets bldon 08-11-2021 Platelets (Bld) [#/Vol] 245 10*3/uL 150-450 [facility] Work Phone: Protein Fractions Elph [Inte rp]on 08-11-2021 Protein Fractions [Interp] Comment [facility] Work Phone: Comment on above: Protein electrophore sis scan will follow via computer,mail, or biological technician delivery. Rough pigweed specific IgE a ntibody assayon 08-11-2021 Rough Pigweed IgE Qn (S) [facility] Work Phone: Comment on above: Test not performedTe st not performed. Insufficient specimen to perform orcomplete analysis. Serum [place] IgE antibody assay (units/volume)on 08-11-2021 [place] IgE Qn (S) [facility] Work Phone: Comment on above: Test not performedTe st not performed. Insufficient specimen to perform orcomplete analysis. Serum Aspergillus fumigatus IgE antibody assay (units/volume)on 08-11-2021 A. fumigatus IgE Qn (S) <0.10 kU/L Class 0 [facility] Work Phone: Serum Bermuda grass IgE anti body assay (units/volume)on 08-11-2021 Bermuda grass IgE Qn (S) <0.10 kU/L Class 0 [facility] Work Phone: Serum Cladosporium herbarum IgE antibody assay (units/volume)on 08-11-2021 C. herbarum IgE Qn (S) <0.10 kU/L Class 0 [facility] Work Phone: Serum Dermatophagoides farin ae specific IgE antibody assay (units/volume)on 08-11-2021 Dutch house dust mite IgE Qn (S) <0.10 kU/L Class 0 [facility] Work Phone: Comment on above: RAST ZONE 5 PER ORDE R Serum house dust mi te IgE antibody assay (units/volume)on 08-11-2021 house dust mite IgE Qn (S) <0.10 kU/L Class 0 [facility] Work Phone: Serum Penicillium notatum Ig E antibody assay (units/volume)on 08-11-2021 P. notatum IgE Qn (S) [facility] Work Phone: Comment on above: Test not performedTe st not performed. Insufficient specimen to perform orcomplete analysis. Serum Periplaneta americana IgE antibody assay (units/volume)on 08-11-2021 Dutch Cockroach IgE Qn (S) <0.10 kU/L Class 0 [facility] Work Phone: Comment on above: RAST ZONE 5 PER ORDE R Serum Nauruan thistle specif ic IgE antibody assayon 08-11-2021 Saltwort IgE Qn (S) [facility] Work Phone: Comment on above: Test not performedTe st not performed. Insufficient specimen to perform orcomplete analysis. Serum albumin to globulin ra shawn by protein electrophoresison 08-11-2021 Albumin/Globulin Elph [Mass ratio] 0.9 [facility] Work Phone: Serum birch specific IgE ant ibody assayon 08-11-2021 Silver Birch IgE Qn (S) [facility] Work Phone: Comment on above: Test not performedTe st not performed. Insufficient specimen to perform orcomplete analysis. Serum black walnut IgE antib fatemeh assay (units/volume)on 08-11-2021 Black Winslow IgE Qn (S) [facility] Work Phone: Comment on above: Test not performedTe st not performed. Insufficient specimen to perform orcomplete analysis. Serum cottonwood IgE antibod y assay (units/volume)on 08-11-2021 Brewster IgE Qn (S) [facility] Work Phone: Comment on above: Test not performedTe st not performed. Insufficient specimen to perform orcomplete analysis. Serum dog epithelium IgE ant ibody assay (units/volume)on 08-11-2021 Dog epithelium IgE Qn (S) <0.10 kU/L Class 0 [facility] Work Phone: Comment on above: RAST ZONE 5 PER ORDE R Serum globulin measurement ( mass/volume)on 08-11-2021 Globulin (S) [Mass/Vol] 4.6 g/dL [facility] Work Phone: Serum mountain cedar specifi c IgE antibody assayon 08-11-2021 Mountain Juniper IgE Qn (S) [facility] Work [facility]: Comment on above: Test not performedTe st not performed. Insufficient specimen to perform orcomplete analysis. Serum or plasma C reactive p rotein measurement (mass/volume)on 08-11-2021 CRP [Mass/Vol] 5.61 mg/L 0.0-3.0 [facility] Work Phone: Comment on above: C-Reactive Protein ( CRP) provides useful information for thediagnosis, therapy and monitoring of inflammatory processesand associated diseases. For the evaluation of Relative Riskfor Cardiovascular Disease, a High Sensitivity CRP (HSCRP)should be ordered. Serum or plasma albumin jessica urement (mass/volume)on 08-11-2021 Albumin [Mass/Vol] 4.1 g/dL [facility] Work Phone: Serum or plasma albumin/glob ulin mass ratioon 08-11-2021 Albumin/Globulin [Mass ratio] 0.9 {ratio} 0.9-2.4 [facility] Work Phone: Serum or plasma beta globuli n measurement by electrophoresis (mass/volume)on 08-11-2021 Beta globulin Elph [Mass/Vol] 1.2 g/dL [facility] Work Phone: Serum or plasma calcium jessica urement (mass/volume)on 08-11-2021 Calcium [Mass/Vol] 8.6 mg/dL 8.5-10.1 [facility] Work Phone: Serum or plasma creatinine m easurement (mass/volume)on 08-11-2021 Creatinine [Mass/Vol] 1.31 mg/dL 0.70-1.30 [facility] Work Phone: Comment on above: The validity of the calculated GFR & GFRAA in patients over 70 years has not been determined. Clinical correlation is essential. Serum or plasma urea nitroge n measurement (mass/volume)on 08-11-2021 Urea nitrogen [Mass/Vol] 35 mg/dL 7-18 [facility] Work Phone: Serum pecan or hickory nut I gE antibody assay (units/volume)on 08-11-2021 Pecan or Weber Nut IgE Qn (S) [facility] Work Phone: Comment on above: Test not performedTe st not performed. Insufficient specimen to perform orcomplete analysis. Serum rheumatoid factor dete ctionon 08-11-2021 Rheumatoid factor Ql (S) 138.0 IU/mL <15 [facility] Work Phone: Serum sheep sorrel IgE antib fatemeh assay (units/volume)on 08-11-2021 Sheep [place] IgE Qn (S) TNP [facility] Work Phone: Comment on above: Test not performedTe st not performed. Insufficient specimen to perform orcomplete analysis. Serum francisco IgE antibody a ssay (units/volume)on 08-11-2021 Francisco IgE Qn (S) <0.10 kU/L Class 0 [facility] Work Phone: Serum white ladarius IgE antibody assay (units/volume)on 08-11-2021 White Ladarius IgE Qn (S) TNP [facility] Work Phone: Comment on above: Test not performedTe st not performed. Insufficient specimen to perform orcomplete analysis. Serum white elm IgE antibody assay (units/volume)on 08-11-2021 White Elm IgE Qn (S) TNP [facility] Work Phone: Comment on above: Test not performedTe st not performed. Insufficient specimen to perform orcomplete analysis. Serum white mulberry IgE ant ibody assay (units/volume)on 08-11-2021 White mulberry IgE Qn (S) TNP [facility] Work Phone: Comment on above: Test not performedTe st not performed. Insufficient specimen to perform orcomplete analysis. Thin prep Papanicolaou smear with manual screeningon 08-11-2021 Thin prep Papanicolaou smear with manual screening 25 U/L 15-37 [facility] Work Phone: Thin prep Papanicolaou smear with manual screening 7 5-15 [facility] Work Phone: Thin prep Papanicolaou smear with manual screening See comment [facility] Work Phone: Comment on above: NOT OBSERVED Total protein bloodon 2021 Protein [Mass/Vol] 8.7 g/dL [facility] Work Phone: Urine albumin/total protein mass ratio by electrophoresison 08-11-2021 Albumin Elph (U) [Mass fraction] 37.5 % [facility] Work Phone: Urine alpha 1 globulin/total protein ratio by electrophoresis (mass fraction)on 08-11-2021 Alpha 1 globulin Elph (U) [Mass fraction] 1.9 % [facility] Work Phone: Urine monoclonal protein/tot al protein mass ratio by electrophoresison 08-11-2021 Protein.monoclonal Elph (U) [Mass fraction] See comment [facility] Work Phone: Comment on above: NOT OBSERVED Urine protein measurement (m ass/volume)on 08-11-2021 Protein (U) [Mass/Vol] 5.7 mg/dL Not Estab. [facility] Work Phone: Basophil percentageon 2021 Bilirubin [Mass/Vol] 0.60 mg/dL 0.20-1.00 [facility] Work Phone: Comment on above: For patients on eltr ombopag therapy, use of Dimension [place] TBIL is not recommended. Chloride [Moles/Vol] 105 mmol/L 98-107 [facility] Work Phone: Glucose [Mass/Vol] 94 mg/dL 74-106 [facility] Work Phone: Potassium [Moles/Vol] 3.8 mmol/L 3.5-5.1 [facility] Work Phone: Protein [Mass/Vol] 9.0 g/dL 6.4-8.2 [facility] Work Phone: Sodium [Moles/Vol] 137 mmol/L 136-145 [facility] Work Phone: Laboratory - Chemistry and C hemistry - challengeon 05-25-2021 ALP [Catalytic activity/Vol] 57 U/L 45-117 [facility] Work Phone: ALT [Catalytic activity/Vol] 35 U/L 16-61 [facility] Work Phone: CO2 [Moles/Vol] 24.0 mmol/L 21.0-32.0 [facility] Work Phone: Free T4 [Mass/Vol] 0.85 ng/dL 0.76-1.46 [facility] Work Phone: Globulin (S) [Mass/Vol] 5.0 g/dL 2.2-4.2 [facility] Work Phone: Urea nitrogen/Creatinine [Mass ratio] 23.1 mg/mg 10-20 [facility] Work Phone: No Panel Informationon 05-25 Estimated GFR (MDRD) Amer 70 mL/min >60 [facility] Work Phone: Comment on above: GFR Calc Estimated GFR (MDRD) Non-Af Amer 58 mL/min >60 [facility] Work Phone: [phone] Comment on above: Non- GFR Calc Thyroid Stimulating Hormone (TSH) 3.64 uIU/mL 0.358-3.74 [facility] Work Phone: Serum or plasma albumin jessica urement (mass/volume)on 05-25-2021 Albumin [Mass/Vol] 4.0 g/dL 3.2-5.0 [facility] Work Phone: Serum or plasma albumin/glob ulin mass ratioon 05-25-2021 Albumin/Globulin [Mass ratio] 0.8 {ratio} 0.9-2.4 [facility] Work Phone: Serum or plasma calcium jessica urement (mass/volume)on 05-25-2021 Calcium [Mass/Vol] 9.1 mg/dL 8.5-10.1 [facility] Work Phone: Serum or plasma creatinine m easurement (mass/volume)on 05-25-2021 Creatinine [Mass/Vol] 1.30 mg/dL 0.70-1.30 [facility] Work Phone: Comment on above: The validity of the calculated GFR & GFRAA in patients over 70 years has not been determined. Clinical correlation is essential. Serum or plasma urea nitroge n measurement (mass/volume)on 05-25-2021 Urea nitrogen [Mass/Vol] 30 mg/dL 7-18 [facility] Work Phone: Thin prep Papanicolaou smear with manual screeningon 05-25-2021 Thin prep Papanicolaou smear with manual screening 27 U/L 15-37 [facility] Work Phone: Thin prep Papanicolaou smear with manual screening 8 5-15 [facility] Work Phone: Provider Note - ED v2on 10-0 Provider Note - ED v2 Provider Note - ED v2: Chart Review: HISTORY OF PRESENTING ILLNESS DONELL is a 69 year old Male and was seen by me at 01-Feb-2020 14:55. Triage Information: Most recent Vital Sign Value Date PAST MEDICAL HISTORY ATTESTATION: I have reviewed and confirmed nurse's/medic's notes for patient's medications, allergies, medical history, and surgical history ALLERGIES/INTOLERANCES: No Known Allergies HEALTH HISTORY: No documented data. OUTPATIENT MEDICATIONS: Home Medications Review Status for Reconciliation: Complete Med Status: Patient Currently Takes Medications Drug Name: losartan 100 mg oral tablet Instructions: 1 tab(s) orally once a day Drug Name: chlorthalidone 25 mg oral tablet Instructions: 1 tab(s) orally once a day Drug Name: ezetimibe 10 mg oral tablet Instructions: 1 tab(s) orally once a day Drug Name: amoxicillin 875 mg oral tablet Instructions: 1 tab(s) orally 2 times a day SIGNIFICANT EVENTS: Past Medical History Description:Hypertension (HTN) RESULTS/VITAL SIGNS VITAL SIGNS: T PRBP SpO2O2(LPM) %FiO2 Method 01-Feb-2020 14:49:[id number] MEDICAL DECISION MAKING/ED COURSE MDM/ED COURSE: This note was generated with voice recognition software and may contain errors including spelling, grammar, syntax, and misrecognization of what was dictated Chief Complaint Sore throat, cough, sinus congestion History of Present Illness Patient presents with complaints of acute onset facial pressure/pain accompanied by cloudy and discolored nasal mucus, sore throat, and cough for 28 days. Patient points to their maxillary sinuses as the source of their constant 6 out of 10 pressure. Only time has made their symptoms worse while nothing makes them better. Patient denies the use of any [id number] medications or home remedies prior to arrival for symptom management. Review of Systems 10 systems reviewed negative with exception of history of present illness listed above Physical Examination General: Alert and oriented, No acute distress. Eye: Pupils are equal, round and reactive. HENT: Normocephalic Neck: Supple, Non-tender, No lymphadenopathy. Respiratory: Respirations are non-labored, Symmetrical chest wall expansion, Lungs are clear to auscultation, Breath sounds are equal Cardiovascular: Normal rate, Regular rhythm. Gastrointestinal: Soft, non-tender, non-distended Musculoskeletal: Normal range of motion, normal strength, no tenderness, no swelling. Integumentary: [place], warm, dry, and Intact. Neurologic: Alert, Oriented, Normal sensory, Normal motor function. Cognition and Speech: Oriented, Speech clear and coherent. Psychiatric: Cooperative, Appropriate mood & affect. Impression and Plan Course: Worsening Plan: Patient will be discharged home with oral antibiotics, instructed to use appropriate over the counter medications for symptom management, and is instructed to follow-up with their primary care provider in 3-5 days for any increase in severity of symptoms or any additional concerns. Patient agrees with plan of care, questions were encouraged and answered. Patient Instructions: Sinusitis CLINICAL IMPRESSION Diagnosis/Annotation: ED Dx Name:Acute maxillary sinusitis Code:J01.00 Dispostion: discharged Type: home ATTESTATION CRITICAL CARE TIME Is this a critically ill patient: no Electronic Signatures: Ketan Holliday (SQUILGEER-DEHORNER) (Signed 01-Feb-2020 15:02) Authored: HPI, PMH, PE, Results/Vital Signs, MDM/ED Course, Clinical Impression, Attestation, Chart Review, Scores Last Updated: 01-Feb-2020 15:02 by Ketan Holliday (SQUILGEER-DEHORNER) [facility] XR Chest 2 Viewson XR Chest 2 Views Exam Date/Time:2017 08:44 EDTReason for Exam:Shortness of breath (SOB)ReportSTUDY:XR Chest 2 Views; 03/04/2018 8:44 amINDICATION:Shortness of breath (SOB).COMPARISON:None.[facility][id number] 24ORDERING CLINICIAN:Marin JohnsonFINDINGS:CARDI OMEDIASTINAL SILHOUETTE:Cardiomediast inal silhouette is normal in size and configuration.LUNGS:Lung s are clear.No pleural effusion or pneumothorax.ABDOMEN:No remarkable upper abdominal findings.BONES:There is osteopenia with mild multilevel anterior endplate spurring of the spine.IMPRESSION:1. No evidence of acute cardiopulmonary process. FINAL REPORT Dictated: 03/04/2018 9:07 am Cyndi Vance MDigned (Electronic Signature): 03/04/2018 9:07 amSigned by: Tarun Vance MD Technologist: CHI[facility] Office Visit: positive loc reyes 03-30-2017 Documentation of current medications (procedure) Done Invalid Interpretation Code [facility] Work Phone: Fall risk assessment No Invalid Interpretation Code [facility] Work Phone: Tobacco smoking status NHIS Never Invalid Interpretation Code [facility] Work Phone: Tobacco use [facility] Never smoker Invalid Interpretation Code [facility] Work Phone: Vital Signs Date Time Vital Sign Value Performing Clinician Facility 11-27-2024 20:00-0400 Body temperature 99 [degF] Dr. Guilherme Erickson MD Work Phone: [facility] 11-27-2024 20:00-0400 Diastolic blood pressure 71 mm[Hg] Dr. Guilherme Erickson MD Work Phone: [phone] [address] 11-27-2024 20:00-0400 Heart rate 82 /min Dr. Guilherme Erickson MD Work Phone: [phone] [place] [address] 11-27-2024 20:00-0400 Respiratory rate 20 /min Dr. Guilherme Erickson MD Work Phone: [phone] [address] 11-27-2024 20:00-0400 SaO2% (BldA) [Mass fraction] 95 % Dr. Guilherme Erickson MD Work Phone: [phone] [address] 11-27-2024 20:00-0400 Systolic blood pressure 131 mm[Hg] Dr. Guilherme Erickson MD Work Phone: [facility] 11-27-2024 18:58-0400 Body height 162.[address] Guilherme Erickson MD Work Phone: [facility] 11-27-2024 18:58-0400 Body mass index (BMI) [Ratio] 33.5 kg/m2 Dr. Guilherme Erickson MD Work Phone: [facility] 11-27-2024 18:58-0400 Body weight 88.[address] Guilherme Erickson MD Work Phone: [facility] 11-11-2024 09:08-0400 Body height 162.[address] Guilherme Erickson MD Work Phone: [phone] [place] [address] 11-11-2024 09:08-0400 Body mass index (BMI) [Ratio] 34.2 kg/m2 Dr. Guilherme Erickson MD Work Phone: [facility] 11-11-2024 09:08-0400 Body temperature 98.1 [degF] Dr. Guilherme Erickson MD Work Phone: [facility] 11-11-2024 09:08-0400 Body weight 90.[address] Guilherme Erickson MD Work Phone: [facility] 11-11-2024 09:08-0400 Diastolic blood pressure 68 mm[Hg] Dr. Guilherme Erickson MD Work Phone: [facility] 11-11-2024 09:08-0400 Heart rate 84 /min Dr. Guilherme Erickson MD Work Phone: [facility] 11-11-2024 09:08-0400 Respiratory rate 15 /min Dr. Guilherme Erickson MD Work Phone: [facility] 11-11-2024 09:08-0400 SaO2% (BldA) [Mass fraction] 94 % Dr. Guilherme Erickson MD Work Phone: [facility] 11-11-2024 09:08-0400 Systolic blood pressure 142 mm[Hg] Dr. Guilherme Erickson MD Work Phone: [facility] 08-27-2021 12:32-0400 Body height 162.[address] Guilherme Erickson Work Phone: [facility] Work Phone: 08-27-2021 12:32-0400 Body mass index (BMI) [Ratio] 35.6 kg/m2 Dr. Guilherme Erickson Work Phone: [facility] Work Phone: 08-27-2021 12:32-0400 Body temperature 97.9 [degF] Dr. Guilherme Erickson Work Phone: [facility] Work Phone: 08-27-2021 12:32-0400 Body weight 94.[address] Guilherme Erickson Work Phone: [facility] Work Phone: 08-27-2021 12:32-0400 Diastolic blood pressure 76 mm[Hg] Dr. Guilherme Erickson Work Phone: [facility] Work Phone: 08-27-2021 12:32-0400 Heart rate 73 /min Dr. Guilherme Erickson Work Phone: [facility] Work Phone: 08-27-2021 12:32-0400 Respiratory rate 16 /min Dr. Guilherme Erickson Work Phone: [facility] Work Phone: 08-27-2021 12:32-0400 SaO2% (BldA) [Mass fraction] 93 % Dr. Guilherme Erickson Work Phone: [facility] Work Phone: 08-27-2021 12:32-0400 Systolic blood pressure 165 mm[Hg] Dr. Guilherme Erickson Work Phone: [facility] Work Phone: 03-30-2017 10:29-0500 BMI (Body Mass Index) 36.2 kg/m2 Louis Espinoza MD [facility] Work Phone: 03-30-2017 10:29-0500 Body Temperature 98 [degF] Louis Espinoza MD [facility] Work Phone: 03-30-2017 10:29-0500 BP Diastolic 80 mm[Hg] Louis Epsinoza MD [facility] Work Phone: 03-30-2017 10:29-0500 BP Systolic 187 mm[Hg] Louis Espinoza MD [facility] Work Phone: 03-30-2017 10:29-0500 Height 162.56 cm Louis Espinoza MD [facility] Work Phone: 03-30-2017 10:29-0500 Pulse (Heart Rate) 64 /min Louis Espinoza MD [facility] Work Phone: 03-30-2017 10:29-0500 Respiratory Rate 20 /min Louis Espinoza MD [facility] Work Phone: 03-30-2017 10:29-0500 Weight 95.66 kg Louis Espinoza MD [facility] Work Phone: Encounters Encounter Date Encounter Type Care Provider Facility Start: 11-27-2024 Non-patient / Non-visit Dr. Ketan Parry MD -[facility] Start: 11-27-2024 Evaluation and management of inpatient Dr. Ketan Parry MD -[facility] Work Phone: Start: 11-11-2024 End: 11-11-2024 Patient encounter procedure Tabatha Sanchez [place] -[facility] Work Phone: Start: 11-11-2024 End: 11-11-[address] Guilherme Erickson MD Work Phone: -[facility] Start: 11-08-2024 End: 11-08-[address] Guilherme Erickson MD Work Phone: -Laboratory [facility] Start: 11-08-2024 End: 11-08-[address] Guilherme Erickson MD -[facility] Start: 11-08-2024 End: 11-08-2024 ambulatory Guilherme Erickson Facility:[facility] Start: 05-21-2024 End: 05-21-2024 ambulatory [facility] Facility:[facility] Start: 02-15-2023 End: 02-15-2023 ambulatory [facility] Work Phone: Start: 02-15-2023 End: 02-15-2023 Patient encounter procedure [facility] Start: 10-12-2022 End: 10-12-2022 ambulatory [facility] Work Phone: Start: 10-12-2022 End: 10-12-2022 Patient encounter procedure [facility] Start: 04-15-2022 End: 04-15-2022 ambulatory [facility] Work Phone: Start: 04-15-2022 End: 04-15-2022 Patient encounter procedure [facility] Start: 02-04-2022 End: 02-04-2022 ambulatory [facility] Work Phone: Start: 02-04-2022 End: 02-04-2022 Patient encounter procedure [facility] Start: 10-26-2021 End: 10-26-2021 Patient encounter procedure [place] Start: 10-01-2021 End: 10-01-[address] Guilherme Erickson Work Phone: [place] Start: 09-24-2021 End: 09-24-[address] Guilherme Erickson Work Phone: [facility] Start: 09-08-2021 End: 09-08-[address] Guilherme Erickson Work Phone: [facility] Start: 08-27-2021 End: 08-27-[address] [facility] Start: 08-25-2021 Non-patient / Non-visit Dr. Bimal Erickson Work Phone: [facility] Start: 08-25-2021 End: 08-25-[address] Guilherme Erickson Work Phone: [facility] Services/Neurology Start: 08-24-2021 End: 08-24-[address] Guilherme Erickson Work Phone: [facility] Start: 08-20-2021 End: 08-20-2021 Patient encounter procedure [facility] Start: 08-11-2021 End: 08-11-2021 Patient encounter procedure [facility] Start: 05-25-2021 End: 05-25-2021 [facility] Start: 07-15-2020 End: 07-15-2020 Patient encounter procedure RAFAELA ERIC [facility] Start: 03-04-2018 End: 03-05-2018 Patient encounter procedure [facility] Facility:[facility] Start: 03-04-2018 Patient encounter procedure Facility:[id number] Procedures Date Procedure Procedure Detail Performing Clinician Start: 11-27-2024 Urnls dip stick/tablet reagent auto microscopy Dr. Guilherme Erickson MD Work Phone: Start: 11-27-2024 Computed tomography of abdomen and pelvis with intravenous contrast Dr. Guilherme Erickson MD Work Phone: Start: 11-27-[address] Guilherme Erickson MD Work Phone: Start: 11-08-2024 Prostate specific antigen measurement Dr. Guilherme Erickson MD Work Phone: Comment on above: This test was performed using the [employer] tPSA method. Measured values of a patient sample can vary depending on the testing procedure used. PSA values determined on patient samples by different testing procedures cannot be used interchangeably. If there is a change in PSA assays while monitoring therapy, sequential testing should be performed to confirm baseline values. Start: 10-26-2021 Pelvis X-ray Start: 09-24-2021 MRI of abdomen with contrast Dr. Guilherme Guerra [facility] Work Phone: Start: 09-08-2021 MRI of abdomen with contrast Dr. Guilherme Guerra [facility] Work Phone: Start: 08-20-2021 CT of chest without contrast Start: 08-20-2021 CT of face Start: 03-30-2017 End: 03-30-2017 Colonoscopy flx dx w/collj spec when pfrmd Louis Espinoza MD Work Phone: Start: 03-30-2017 End: 03-30-2017 Esophagogastroduodenoscopy transoral diagnostic Louis Espinoza MD Work Phone: Plan of Treatment Date Care Activity Detail Author Start: 11-27-2024 Laparoscopic appendectomy Laparoscopic, Appendectomy (Not Applicable) [facility] Start: 11-27-2024 Hospital admission, emergency, from emergency room, medical nature [facility] Start: 11-27-2024 End: 11-27-2024 [facility] Start: 11-27-2024 Bacteria identified in Blood by Culture Blood Culture [facility] Start: 11-27-2024 Bacteria identified in Urine by Culture Urine Culture [facility] Start: 03-30-2017 End: 03-30-2017 Colonoscopy flx dx w/collj spec when pfrmd Colonoscopy [facility] Work Phone: Start: 03-30-2017 End: 03-30-2017 Esophagogastroduodenoscopy transoral diagnostic EGD; diagnostic [facility] [employer] Work Phone: Start: 03-30-2017 End: 03-30-2017 Appointment Appointment [facility] Work Phone: Urine culture [facility] Immunizations Immunization Date Immunization Notes Care Provider Fa cility 11-09-2022 tetanus toxoid, redu hiren diphtheria toxoid, and acellular pertussis vaccine, adsorbed Dr. Guilherme Erickson MD Work Phone: [facility] 07-15-2020 Covid ([employer]) Dr. Guilherme Erickson MD Work Phone: [facility] 05-08-2007 hepatitis B vaccine, adult dosage Dr. Guilherme Erickson MD Work Phone: [facility] 10-26-2006 hepatitis B vaccine, adult dosage Dr. Guilherme Erickson MD Work Phone: [facility] 09-16-2006 hepatitis B vaccine, adult dosage Dr. Guilherme Erickson MD Work Phone: [facility] Payers Date Payer Category Payer Self-pay [id number] 2024 Unknown [id number] 2018 Medicare 2018 Unknown 2014 Medicare [id number] 1950 Unknown [id number] 2.16.84 [id number] 1950 Unknown [id number] 2.16.84 [id number] 1950 Unknown [id number] 2.16. [id number] 1950 Unknown [id number] 2.16.84 [id number] Private Health Insurance [facility] [id number] Unknown [id number] Unknown [id number] 2.16.8 [id number] Unknown [id number] 2.16.8 [id number] Unknown [id number] 2.16.8 [id number] Social History Date Type Detail Facility Tobacco smoking stat us CAIS Unknown if ever smoked [facility] Work Phone: Start: 1950 Sex Assigned At Male [facility] Start: 11-11-2024 End: 11-27-2024 Tobacco smoking status NHIS Never smoked tobacco (finding) [facility] Goals Date Patient Goal Desired Activity /State Discharge summary 11-27-2024 Note Date & Type Note Facility 11-27-2024 Discharge summary Note Date/Time November 27, 2024 6:22pm [facility] Medical Records Department [address] [place] [address] Emergency Department Summary 11/27/24 MR#: [id number] Acct: [id number] Name: DONELL HERRMANN Rep #:[id number] : 1950 74 From: Kal Mcdonald DO PCP: Dr. Guilherme Erickson MD Status:REG ER Location: ED HPI History of Present Illness Chief Complaint: Abd Pain Narrative Narrative: Patient is a 74-year-old male with past medical history of hypothyroidism, hypertension who presented to the emergency department chief complaint of abdominal pain. Patient states that he originally had left-sided abdominal painnow that has moved to the right side. He states that this to be going on for approximately 3 days. He states that he picked up a heavy trailer prior to his symptoms starting and attributed his pain to a strained muscle which he did in the past on the left side. Patient denies any recent contacts he states he has not had any previous abdominal surgeries. Patient denies black tarry stools or blood in his stool. [facility] Medical History Hypothyroidism HTN (hypertension) Home Medications ?Medication ?Instructions ?Recorded ?Last Taken ?Type losartan 100 mg tablet 100 mg PO DAILY 04/06/17 History red yeast rice 600 mg capsule 600 mg PO DAILY 04/06/17 11/27/24 History chlorthalidone 25 mg tablet 12.5 mg PO DAILY 08/27/21 11/27/24 History cholecalciferol (vitamin D3) 50 50 mcg PO DAILY 11/27/24 History mcg (2,000 unit) capsule niacin 500 mg tablet 500 mg PO QODAY 08/27/21 History levothyroxine 25 mcg tablet 25 mcg PO DAILY 11/27/24 0 11/27/24 History Allergy/AdvReac Type Severity Reaction Status Date / Time pneumococcal vaccine (From AdvReac rash on Verified 11/27/24 15:27 Pneumovax-23) arms Surgical History No significant past surgical history Social History Smoking Status: Never smoker alcohol intake: never substance use type: does not use ROS ROS ED ROS Narrative Constitutional: Denies any fevers, chills, headaches Eyes: Denies change in vision double vision blurry vision Cardiovascular: Denies chest pain Respiratory: Denies coughing wheezing shortness of breath Abdomen: Complains of abdominal pain as noted above as well as nausea denies vomiting or diarrhea : Denies urinary symptoms Neurological: Denies numbness, wheeze, tingling Musculoskeletal: Denies back pain Skin: Denies any rashes or lesions EXAM Physical Exam Narrative Exam Narrative: General: Patient lying in bed rest comfortably did not appear to be in acute distress Head: Atraumatic, normocephalic Eyes: PERRL bilaterally, EOMI bilateral, no conjunctival injection noted Neck: Soft, supple, trachea midline Cardiovascular: Patient tachycardic with a regular rhythm Respiratory: Clear to auscultation bilaterally Abdomen: Soft, nondistended, tenderness palpation the right lower quadrant Extremities: +5/5 strength noted in the bilateral upper and lower extremities Neurological: Patient follow commands knew he was at [facility] the year is 2024 Skin: Warm, dry, tact no rashes lesions noted Const Vital Signs: 11/27/24 15:25 11/27/24 16:06 11/27/24 16:27 Temperature 99.9 F H 99 F Temperature Source Oral Oral Pulse Rate 103 H 87 Respiratory Rate 18 18 Blood Pressure 168/87 H 126/62 H Blood Pressure Mean 114 83 Pulse Ox 98 95 Oxygen Delivery Method Room Air Room Air Room Air 11/27/24 17:00 11/27/24 18:00 Temperature 98.3 F 99.4 F H Temperature Source Oral Oral Pulse Rate 82 81 Respiratory Rate 19 H 18 Blood Pressure 136/70 H 131/64 H Blood Pressure Mean 92 86 Pulse Ox 95 94 Oxygen Delivery Method Room Air Room Air MDM MDM MDM Narrative Medical decision making narrative: Patient is a 74-year-old male who presented to the emergency department chief complaint of abdominal pain. On the differential diagnosis includes but limitedto appendicitis, bowel obstruction, appendicitis abscess, pancreatitis, viral gastroenteritis, musculoskeletal strain. Once workup is obtained reviewed he will be reevaluated. Patient to give IV fluids morphine Zofran. Patient CBC was significant for leukocytosis of 17,000, hemoglobin 13.8, platelet count of 202. Patient's INR normal at 1.1, PT of 14.1. Patient sodiumwas 134, potassium normal at 3.5, creatinine was 1.42 he has have underlying chronic kidney disease based on previous blood draws. Patient's AST and ALT were 24 and 20 respectively total bilirubin normal at 0.95. Patient's CT abdomen pelvis IV contrast reviewed and showed acute appendicitis with significant surrounding inflammation and fluid no periappendiceal abscess no bowel obstruction. Moderate right inguinal hernia with bladder herniation. Patient is EKG showed sinus rhythm with a rate of 96 bpm with evidence of first-degree AV block with a OR interval of 210. Patient was given dose of Zosyn. Discussed case with Dr. Parry general surgery who states that he will come in and evaluate the patient. Notified the patient and significant other bedside they are agreeable to plan all question concerns answered. Lab Data Labs: Laboratory Results - last 24 hr 11/27/24 11/27/24 15:40 16:05 WBC 17.9 H RBC 4.39 L Hgb 13.8 Hct 41.3 MCV 94.1 H MCH 31.4 MCHC 33.4 RDW Std Deviation 49.5 H RDW Coeff of Paloma 14.3 Plt Count 202 MPV 10.7 Immature Gran % (Auto) 0.800 Neut % (Auto) 84.9 H Lymph % (Auto) 6.0 L [place] % (Auto) 8.0 Eos % (Auto) 0.1 Baso % (Auto) 0.2 Absolute Neuts (auto) 15.2 H Absolute Lymphs (auto) 1.07 Nucleated RBC % 0 PT 14.1 INR 1.1 APTT 29.0 Sodium 134 Potassium 3.5 Chloride 95 L Carbon Dioxide 23.6 Anion Gap 15 BUN 23 H Creatinine 1.42 H Estim Creat Clear Calc 45.09 L Est GFR (MDRD) Non-Af 52 L BUN/Creatinine Ratio 16.5 Glucose 111 H Lactic Acid 1.2 Calcium 9.7 Total Bilirubin 0.95 AST 24 ALT 20 Alkaline Phosphatase 56 Total Protein 9.3 H Albumin 4.7 Globulin 4.6 H Albumin/Globulin Ratio 1.0 Urine Color Straw Urine Clarity Clear Urine pH 6.0 Ur Specific Ulmer 1.015 Urine Protein 100 H Urine Glucose (UA) Normal Urine Ketones Negative Urine Occult Blood 50 H Urine Nitrite Negative Urine Bilirubin Negative Urine Urobilinogen Normal Ur Leukocyte Esterase Negative Urine RBC 0-5 SEEN Urine WBC 0-5 SEEN Ur Squamous Epith Cells 0-5 SEEN Urine Bacteria 0 SEEN Urine Mucus 0 SEEN Radiography Diagnostic Testing: Clinical Impression(s) from Imaging Studies Abdomen/Pelvis CT 11/27/24 15:46 IMPRESSION: Acute appendicitis with significant surrounding inflammation and fluid. No periappendiceal abscess. No bowel obstruction. Moderate right inguinal hernia with bladder herniation. Reading Location: [facility] Discharge Plan Triage Chief Complaint: Abd Pain ED Provider: Kal Mcdonald Dx/Rx/DC Orders Clinical Impression: HTN (hypertension), Hypothyroidism, Acute appendicitis Prescriptions: No Action chlorthalidone 25 mg tablet 12.5 mg PO DAILY cholecalciferol (vitamin D3) 50 mcg (2,000 unit) capsule 50 mcg PO DAILY niacin 500 mg tablet 500 mg PO QODAY losartan 100 MG tablet 100 mg PO DAILY Patient Comments: BLOOD PRESSURE red yeast rice 600 MG capsule 600 mg PO DAILY levothyroxine 25 mcg tablet 25 mcg PO DAILY Primary Care Provider: Guilherme Erickson Referrals: Guilherme Erickson MD [Primary Care Provider] - Print Language: Luxembourger Disposition Disposition: Acute Care Hospital [facility] What to do if you have Problems For any increased pain, shortness of breath, bleeding, nausea or vomiting, chestpain, or any unexpected problems, contact your Primary Care Provider. Call [facility] ([phone]) or report to the closest Emergency Room. Call 911 if necessary. 11/27/241821 <Electronically signed by Kal Mcdonald DO> Cosigner Signature (if applicable): CC: Dr. Guilherme Erickson MD ~ Signed [facility] Work Phone: History and physical note 11-27-2024 Note Date & Type Note Facility 11-27-2024 History and physi elbert note [facility] Discharge summary 11-27-2024 Note Date & Type Note Facility 11-27-2024 Discharge summary [facility] Radiology Diagnostic study note 11-27-2024 Note Date & Type Note Facility 11-27-2024 Radiology Diagnostic study note [facility] Imaging Services [address], [place] [address] Abdomen/Pelvis W IV Cont ONLY MR#: [id number] Acct: [id number] Name: DONELL HERRMANN Rep #: [id number] : 1950 M 74 From: Lupe French MD PCP: Dr. Guilherme Erickson MD Status: REG ER Study:Abdomen/Pelvis W IV Cont ONLY Date of E xam: 11/27/24 Exam# [id number] Ordering Dr: Servando Mcdonald DO PROCEDURE: ABDOMEN/PELVIS W IV CONT ONLY 11/27/2024 REASON FOR EXAM: RLQ PAIN TECHNIQUE: ABDOMEN/PELVIS W IV CONT ONLY Coronal and Sagittal reconstruction series were provided. CONTRAST: 100 mL of Isovue 370 One or more dose reduction techniques were used (e.g., Automated exposure control, adjustment of the mA and/or kV according to patient size, use of iterative reconstruction technique. RADIATION DOSE SUMMARY: DLP: 650 mGycm COMPARISON: MR 09/24/21 FINDINGS: Limited sections of the lung bases demonstrate no focal pulmonary mass or consolidations. Bibasilar subsegmental atelectasis. Extensive coronary atherosclerosis. The liver, spleen, pancreas, and both adrenal glands demonstrate no acute findings. Mild hepatic steatosis. 3.2 x 2.1 cm left hepatic cyst. The gallbladder is unremarkable. The stomach is unremarkable. The small bowel loops are not dilated. Acute appendicitis with significant surrounding inflammation and fluid. No periappendiceal abscess. No bowel obstruction. No colonic obstruction. Trace free fluid. No free air. 3.3 cm right kidney cyst. No hydronephrosis. No obstructive uropathy. The urinary bladder is partially distended. Moderate right inguinal hernia with bladder herniation. The pelvic structures are intact. There is no solid pelvic mass. No significant lymphadenopathy. The aorta and IVC demonstrate no acute findings. Moderate atherosclerosis of the abdominal vasculature. Visualized osseous structures demonstrate no acute abnormality. CT/Abdomen/Pelvis W IV Cont ONLY IMPRESSION: Acute appendicitis with significant surrounding inflammation and fluid. No periappendiceal abscess. No bowel obstruction. Moderate right inguinal hernia with bladder herniation. Reading Location: [facility] CC: Dr. Guilherme Erickson MD; Dr. Kal Mcdonald DO ~ Degreaser Operator: Signed [facility] Evaluation note 11-11-2024 Note Date & Type Note Facility 11-11-2024 Evaluation note Diagnosis Onset Date Resolution Contact dermatitis acute October 302024 10:25am [facility] Work Phone: Evaluation note 11-11-2024 Note Date & Type Note Facility 11-11-2024 Evaluation note Diagnosis Onset Date Resolution Contact dermatitis acute October 302024 10:25am Acute appendicitis acute October 312024 6:39pm [facility] Work Phone: Evaluation note Note Date & Type Note Facility Evaluation note No assessment information availa ble [facility] Work Phone: Evaluation note Note Date & Type Note Facility Evaluation note Diagnosis Onset Date Chronic cough chronic [facility] Work Phone: History and physical note Note Date & Type Note Facility History and physical note Note Date/Time November 27, 2024 8:16pm [facility] Medical Records Department [address] [place] [address] History & Physical Exam 11/27/24 1908 MR#: [id number] Acct: [id number] Name: DONELL HERRMANN Rep #:[id number] : 1950 74 From: Ketan Bruno PCP: Dr. Guilherme Erickson MD Status:ADM IN Location: [facility] CU085-8 HPI - General General Date of Admission: 11/27/24 Chief Complaint: Acute onset right lower quadrant pain HPI Narrative DONELL HERRMANN, is a 74 M who presents to [facility] with complaints of progressive, acute onset abdominal pain has become well localized to the right lower quadrant. He presents today with his . He shares that he for started with pain approximately 48 hours ago following dinner. He sharesthat he had recently been moving a trailer around and had a fairly recent history of a pulled muscle so he initially suspected that his pain symptoms weresimilarly related. However, his notes that she first detected a low-grade fever at approximately 1:00 AM yesterday. Mr. Herrmann shares a history of anorexia with his last meal coming at dinnertime yesterday. There has been someassociated nausea but no vomiting. He reports his bowel movements have been normal. Patient reports a history of high blood pressure, hypothyroidism, and reflux butstates that his high blood pressure and reflux are well-controlled. Has no prior surgical history. ED workup remarkable for CBC that demonstrates leukocytosis of greater than 17,000. CT imaging of the abdomen pelvis performed shows acute appendicitis with some periappendiceal fluid but no evan abscess formation. [facility] Medical History (Updated 11/27/24 @ 18:59 by Esme Moreno) Non-smoker Hernia GERD (gastroesophageal reflux disease) Hypothyroidism HTN (hypertension) Home Medications ?Medication ?Instructions ?Recorded ?Last Taken ?Type losartan 100 mg tablet 100 mg PO DAILY 04/06/17 History red yeast rice 600 mg capsule 600 mg PO DAILY 04/06/17 11/27/24 History chlorthalidone 25 mg tablet 12.5 mg PO DAILY 08/27/21 11/27/24 History cholecalciferol (vitamin D3) 50 50 mcg PO DAILY 11/27/24 History mcg (2,000 unit) capsule niacin 500 mg tablet 500 mg PO QODAY 08/27/21 History levothyroxine 25 mcg tablet 25 mcg PO DAILY 11/27/24 0 11/27/24 History Allergy/AdvReac Type Severity Reaction Status Date / Time pneumococcal vaccine (From AdvReac rash on Verified 11/27/24 15:27 Pneumovax-23) arms Surgical History No significant past surgical history Social History Smoking Status: Never smoker alcohol intake: never substance use type: does not use Vital Signs Vital Signs Vital Signs: 11/27/24 15:25 11/27/24 16:06 11/27/24 16:27 Temperature 99.9 F H 99 F Temperature Source Oral Oral Pulse Rate 103 H 87 Respiratory Rate 18 18 Blood Pressure 168/87 H 126/62 H Blood Pressure Mean 114 83 Blood Pressure Source Blood Pressure Position Blood Pressure Location Pulse Ox 98 95 Oxygen Delivery Method Room Air Room Air Room Air 11/27/24 17:00 11/27/24 18:00 11/27/24 18:58 Temperature 98.3 F 99.4 F H 99 F Temperature Source Oral Oral Oral Pulse Rate 82 81 80 Respiratory Rate 19 H 18 18 Blood Pressure 136/70 H 131/64 H 130/68 H Blood Pressure Mean 92 86 88 Blood Pressure Source Monitor Blood Pressure Position Semi-Fowlers Blood Pressure Location Right Arm Pulse Ox 95 94 96 Oxygen Delivery Method Room Air Room Air Room Air 11/27/24 19:00 11/27/24 19:00 Temperature 99 F 99 F Temperature Source Oral Pulse Rate 80 81 Respiratory Rate 20 H 20 H Blood Pressure 138/71 H 138/71 H Blood Pressure Mean 93 93 Blood Pressure Source Blood Pressure Position Blood Pressure Location Pulse Ox 96 96 Oxygen Delivery Method Room Air Weight Weight: 195 lb 1.6 oz Body Mass Index (BMI) 33.5 Physical Exam Const alert, oriented x3, no apparent distress and well nourished Constitutional Narrative: Morbidly obese Resp normal respiratory effort GI GI Narrative: Small reducible umbilical hernia is nontender to palpation, hirsute, no scars, marked tenderness of the right lower quadrant with severe tenderness over McBurney's point. Results Lab / Micro Data 11/27/24 15:40 11/27/24 15:40 Labs: Laboratory Results - last 24 hr 11/27/24 15:40: WBC 17.9 H, RBC 4.39 L, Hgb 13.8, Hct 41.3, MCV 94.1 H, MCH 31.4, MCHC 33.4, RDW Std Deviation 49.5 H, RDW Coeff of Paloma 14.3, Plt Count 202,MPV 10.7, Immature Gran % (Auto) 0.800, Neut % (Auto) 84.9 H, Lymph % (Auto) 6.0L, [place] % (Auto) 8.0, Eos % (Auto) 0.1, Baso % (Auto) 0.2, Absolute Neuts (auto)15.2 H, Absolute Lymphs (auto) 1.07, Nucleated RBC % 0, PT 14.1, INR 1.1, APTT 29.0, Sodium 134, Potassium 3.5, Chloride 95 L, Carbon Dioxide 23.6, Anion Gap 15, BUN 23 H, Creatinine 1.42 H, Estim Creat Clear Calc 45.09 L, Est GFR (MDRD) Non-Af 52 L, BUN/Creatinine Ratio 16.5, Glucose 111 H, Lactic Acid 1.2, Calcium 9.7, Total Bilirubin 0.95, AST 24, ALT 20, Alkaline Phosphatase 56, Total Protein 9.3 H, Albumin 4.7, Globulin 4.6 H, Albumin/Globulin Ratio 1.0 11/27/24 16:05: Urine Color Straw, Urine Clarity Clear, Urine pH 6.0, Ur Specific Ulmer 1.015, Urine Protein 100 H, Urine Glucose (UA) Normal, Urine Ketones Negative, Urine Occult Blood 50 H, Urine Nitrite Negative, Urine Bilirubin Negative, Urine Urobilinogen Normal, Ur Leukocyte Esterase Negative, Urine RBC 0-5 SEEN, Urine WBC 0-5 SEEN, Ur Squamous Epith Cells 0-5 SEEN, Urine Bacteria 0 SEEN, Urine Mucus 0 SEEN Imaging Radiology Impression Abdomen/Pelvis CT 11/27/24 15:46 IMPRESSION: Acute appendicitis with significant surrounding inflammation and fluid. No periappendiceal abscess. No bowel obstruction. Moderate right inguinal hernia with bladder herniation. Reading Location: [facility] Assessment & Plan Assessment/Plan (1) Acute appendicitis: PLAN: Patient is 74-year-old male who presents with signs and symptoms of acute appendicitis that began approximately 48 hours ago. He demonstrates peritoneal signs on exam and CT imaging shows his appendix to be severely dilated?particularly as it approaches the base of measuring approximately 1.7 cmin diameter. I am concerned given his duration of symptoms and the CT evidence of periappendiceal fluid for his risk of perforation. As such I candidly discussed need to proceed emergently to the operating room for surgical appendectomy. I also discussed the potential need for a partial cecectomy and the name of trying to obtain healthy tissue to land a staple line as well as thepotential for requiring an inpatient admission postoperatively on the account ofperitoneal contamination and associated risk for ileus/postoperative abscess. Patient and his confirm understanding. Antibiotics were dosed empirically by emergency medicine. Plan to proceed to the operating room for laparoscopic appendectomy versus possible partial cecectomy at first availability. Both anesthesia and the operating room team notified. Ketan Parry MD General Surgery Endocrine Surgery Pager: [facility] [address] [place] [address], [address] [place] [address] Office: [phone] Charges/Coding Visit Charges Inpatient E&M: 72563 Init Hosp L2 11/27/24 1914 <Electronically signed by Ketan Parry MD> Cosigner Signature (if applicable): CC: Dr. Guilherme Erickson MD; Dr. Ketan Parry MD~ Signed ADDENDUM by Dr. Ketan Parry MD on 11/27/24 at 2016 Addendum Beyond immediate findings enumerated above regarding patient's diagnosis of acute appendicitis I did share CT findings of bilateral inguinal hernias and umbilical hernia. I further described that portion of patient's bladder was seen within the right inguinal hernia. Patient informs me that he was diagnosedwith a hernia at least 20 years ago and has been relatively asymptomatic. I suggested that longitudinal data predicts that patients will become symptomatic with time and ultimately I would recommend he consider surgical repair of these hernias, however, I stated that the time to do so was not present when we have concern for concurrent infection. Patient and his confirmed understanding. 11/27/242015<Electronically signed by Ketan Parry MD> Cosigner Signature (if applicable): cc: Dr. Guilherme Erickson MD; Dr. Ketan Parry MD ~* Signed [facility] Work Phone: Reason for referral (narrative) Note Date & Type Note Facility Reason for referral (narrative) No reason for referral information available [facility] Work Phone: Summary Purpose Family History No Family History Records FoundNo Family History Records FoundNo Family History Records FoundNo Family History Records FoundNo Family History Records Found Advance Directives Advance Directive Response Recorded Date/ Time Do you have a Healthcare Power of Industrial Analyst? No November 27, 2024 3:40pm Chief Complaint and Reason for Visit Chief Complaint CHRONIC COUGH Chief Complaint CHRONIC COUGH CHRONIC COUGH CHRONIC COUGH Cough Reason for Visit Chronic cough Chief Complaint CHRONIC COUGH CHRONIC COUGH CHRONIC COUGH Cough ABNORMAL CT OF LIVER Reason for Visit Chronic cough Chief Complaint CHRONIC COUGH CHRONIC COUGH CHRONIC COUGH Cough ABNORMAL CT OF LIVER LESION, MASS *ATTN: RT KIDNEY* Reason for Visit Chronic cough Chief Complaint Admit Date CONCERN FOR SHINGLES November 11, 2024 10: 25am Reason for Visit Admit Date Contact dermatitis November 11, 2024 10:2 5am Chief Complaint Admit Date CONCERN FOR SHINGLES November 11, 2024 10: 25am APPENDICITIS November 27, 2024 6:39 pm APPENDICITIS November 27, 2024 7:08 pm Reason for Visit Admit Date Contact dermatitis November 11, 2024 10:2 5am Acute appendicitis November 27, 2024 6:39 pm Additional Source Comments (unrecognized sect ion and content) No Status Records FoundNo Status Records FoundNo Status Records FoundNo Status Records FoundNo Status Records Found INFORMATION SOURCE (unrecogn ized section and content) DATE CREATED AUTHOR 04/09/2018 [facility] DATE CREATED AUTHOR AUTHOR'S ORGANIZ ATION 04/09/2018 [facility] DATE CREATED AUTHOR AUTHOR'S ORGANIZ ATION 02/08/2020 [facility] DATE CREATED AUTHOR AUTHOR'S ORGANIZ ATION 07/28/2020 [facility] DATE CREATED AUTHOR AUTHOR'S ORGANIZ ATION 11/18/2024 [facility] Goals (unrecognized section and content) Goals may be documented in a n alternate sectionGoals may be documented in an alternate sectionGoals may be documented in an alternate sectionGoals may be documented in an alternate sectionGoals may be documented in an alternate sectionGoals may be documented in an alternate sectionGoals may be documented in an alternate sectionGoals may be documented in an alternate sectionGoals may be documented in an alternate sectionGoals may be documented in an alternate sectionGoals may be documented in an alternate sectionGoals may be documented in an alternate sectionGoals may be documented in an alternate sectionGoals may be documented in an alternate section Care Teams (unrecognized sec tion and content) Team Status: Active Member Role Status Dates Dr. Guilherme Erickson MD Family Provider Active Dr. Guilherme Erickson MD Primary Care Provider Active Team Status: Inactive Member Role Status Dates Dr. Guilherme Erickson MD Primary Care Provider, Attending [place] Active Team Status: Active Member Role/Relationship Status Dates Dr. Guilherme Erickson MD Family Provider Active Dr. Guilherme Erickson MD Primary Care Provider Active Team Status: Active Member Role/Relationship Status Dates Dr. Guilherme Erickson MD Primary Care Provider Active Start: November 08, 2024 Dr. Guilherme Erickson MD Attending Provider Active St art: November 08, 2024 Dr. Guilherme Erickson MD Referring Provider Active St art: November 08, 2024 Team Status: Inactive Member Role/Relationship Status Dates Dr. Guilherme Erickson MD Primary Care Provider Active Start: November 11, 2024 End: November 11, 2024 Dr. Guilherme Erickson MD Referring Provider Active St art: November 11, 2024 End: November 11, 2024 Tabatha Sanchez PA, PA Attending Provider Active Start: November 11, 2024 End: November 11, 2024 Team Status: Inactive Member Role/Relationship Status Dates Dr. Guilherme Erickson MD Primary Care Provider Active Start: November 08, 2024 End: November 08, 2024 Dr. Guilherme Erickson MD Attending Provider Active St art: November 08, 2024 End: November 08, 2024 Dr. Guilherme Erickson MD Referring Provider Active St art: November 08, 2024 End: November 08, 2024 Team Status: Active Member Role/Relationship Status Dates Dr. Guilherme Erickson MD Primary Care Provider Active Team Status: Active Member Role/Relationship Status Dates Dr. Guilherme Erickson MD Primary Care Provider Active Start: November 27, 2024 Dr. Kal Mcdonald DO Emergency Provider Active Start: November 27, 2024 Dr. Ketan Parry MD Admit Provider Active Sta rt: November 27, 2024 Dr. Ketan Parry MD Attending Provider Active Start: November 27, 2024 Team Status: Active Member Role/Relationship Status Dates Dr. Guilherme Erickson MD Primary Care Provider Active Start: November 27, 2024 Dr. Kal Mcdonald DO Emergency Provider Active Start: November 27, 2024 Dr. Ketan Parry MD Admit Provider Active Sta rt: November 27, 2024 Dr. Ketan Parry MD Attending Provider Active Start: November 27, 2024 Dr. Ketan Parry MD Other Provider Active Sta rt: November 27, 2024 FOR RECORDS PERTAINING TO PATIENTS WHO ARE OR HAVE BEEN ENROLLED IN A CHEMICAL DEPENDENCY/SUBSTANCEABUSE PROGRAM, SOME INFORMATION MAY BE OMITTED. This clinical summary was aggregated from multiple sources. Caution should be exercised in using it in the provision of clinical care. This summary normalizes information from multiple sources, and as a consequence, information in this document may materially change the coding, format and clinical context of patient data. In addition, data may be omitted in some cases. CLINICAL DECISIONS SHOULD BE BASED ON THE PRIMARY CLINICAL RECORDS. [facility] [employer] [facility]. provides no warranty or guarantee of the accuracy or completeness of information in this document.
--- NOTE | 2024-11-27 23:20 | PCM.POSTANE2 ---
Anesthesia Postop Eval I Sum Postop Eval Completion status Anesthesia document: Postop Eval 1 completed: Yes Anesthesia Postop Eval I Summary Anesthesia Postop Eval I Summary: Anesthesia Postop Eval I: Assessment Summary Airway patent Yes 11/27/24 23:04 Spontaneous unlabored Yes 11/27/24 23:04 respirations Mental status Asleep - Arousable 11/27/24 23:04 nausea No 11/27/24 23:04 Vomiting No 11/27/24 23:04 Anesthesia Postop Eval I: Fluid Summary Crystalloid volume administer 700 11/27/24 23:04 (ml) Colloids volume administered ( ml) Blood Product volume administered (ml) Total IV fluid infused 11/27/24 23:04 Anesthesia Postop Eval I: Summary Notes Anesthesia Complication No 11/27/24 23:04 Anesthesia Complication Comment: Post-operative progress note Anesthesia: Postop Eval II Evaluation Mental status: Awake and Calm Pain Level: 1 nausea: No Vomiting: No Complications Anesthesia Complication: No
[2024-11-28] VITALS (11 sets, daily range): BP systolic 111–138; BP diastolic 55–79; PULSE 70–88; RESP 16–18; TEMP 36.6–38.1; O2SAT 87–99; BMI 33.4
[2024-11-28] MEDS: 0.9% Normal Saline (1000mL) 1,000 ML 125 ML IV ×4 (00:04→23:02)
--- OUTSIDE RECORDS SUMMARY | 2024-11-28 00:45 | XMS RPT_ITS | CCD ---
Author Organization [facility] CliniSyny Care Team Providers Care Chief Controller Name Role Phone Louis Espinoza MD Unavailable [...] Other Provider Dr. Julio Mccall Attending Provider [phone] Yonas Johnson Attending Provider Dr. Guilherme Erickson MD Primary Care Provider Dr. Guilherme Erickson MD Attending Provider Dr. Guilherme Erickson MD Referring Provider [phone] Tabatha Muniz Attending Provider Tabatha Muniz Attending Unavail able Dre, Guilherme Primary Care Unavailable Dre, Guilherme Referring Unavailable Guilherme Erickson Attending Unavailable Dre, Guilherme Primary Care Unavailable Erickson, Guilherme Referring Unavailable Guilherme Erickson Attending Unavailable Erickson, Guilherme Primary Care Unavailable Erickson, Guilherme Referring Unavailable Dr. Kal Mcdonald DO Emergency Provider [phone] Dr. Ketan Parry MD Admit Provider Dr. Ketan Parry MD Attending Provider Dr. Ketan Parry MD Other Provider [phone] Allergies Allergy Classification Reported Allergen(s) Allergy Type Date of Onset Reaction(s) Facility (13 sources) Pneumococcal vaccine Drug Allergy 08-27-2021 rash on arms [facility] (1 source) Pneumococcal vaccine Drug Allergy 11-11-2024 [facility] Repository Medications Current Medications Medication Drug Class(es) [...] One tablet by mouth daily LOSARTAN POTASSIUM [id number] Louis Espinoza MD niacin 500 mg oral [...] by mouth daily RED YEAST RICE EXTRACT [id number] Louis Espinoza MD Completed/Discontinued Medications Medication Drug [...] CPDR One tablet by mouth daily OMEPRAZOLE [id number] Louis Espinoza MD predniSONE 10 mg oral [...] Auto (Unsp spec) [#/Vol] 1.07 10*3/uL 0.83-4.51 [facility] Absolute neutrophil countOrd ered By: Kal Mcdonald on 11-27-2024 Neutrophils (Bld) [#/Vol] 15.2 10*3/uL High 2.0-7.7 [facility] Activated partial thrombopla stin time (aPTT) in platelet poor plasma by coagulation aOrdered By: Kal Mcdonald on 11-27-2024 aPTT Coag (PPP) [Time] 29.0 s 24.1-36.2 [facility] Anion gap in Serum or Plasma Ordered By: Kal Mcdonald on 11-27-2024 Anion gap [Moles/Vol] 15 mmol/L 5-15 [facility] Automated lymphocyte count a s percentage of total leukocytesOrdered By: Kal Mcdonald on 11-27-2024 Lymphocytes/100 WBC Auto (Unsp spec) 6.0 % Low 19-41 [facility] BUN/creatinine ratioOrdered By: Kal Mcdonald on 11-27-2024 Urea nitrogen/Creatinine [Mass ratio] 16.5 mg/mg 10-20 [facility] Basophil percentageOrdered B y: Kal Mcdonald on 11-27-2024 Basophils/100 WBC (Bld) 0.2 % 0-1 [facility] Bilirubin Test strip Ql (U)O rdered By: Kal Mcdonald on 11-27-2024 Bilirubin Ql (U) Negative Negative [facility] Bilirubin, totalOrdered By: Kal Mcdonald on 11-27-2024 Bilirubin [Mass/Vol] 0.95 mg/dL 0.00-1.[address] [facility] Carbon dioxide, total [Moles /volume] in Central venous bloodOrdered By: Kal Mcdonald on 11-27-2024 CO2 [Moles/Vol] 23.6 mmol/L 21.0-32.0 [facility] Chloride assayOrdered By: Mariano Mcdonald on 11-27-2024 Chloride [Moles/Vol] 95 mmol/L Low 98-[address] [facility] Eosinophil percentageOrdered By: Kal Mcdonald on 11-27-2024 Eosinophils/100 WBC (Bld) 0.1 % 0-5 [facility] Erythrocyte distribution wid th ratioOrdered By: Kal Mcdonald on 11-27-2024 Erythrocyte distribution width (RBC) [Ratio] 14.3 % 11.6-14.6 [facility] Erythrocyte distribution wid th standard deviationOrdered By: Kal Mcdonald on 11-27-2024 Erythrocyte distribution width (RBC) [Ratio] 49.5 fl High 35.1-43.9 [facility] Free [id number] By: Kal yu on 11-27-2024 Free T3 [Mass/Vol] 2.6 pg/mL 2.18-3.98 [facility] Glomerular filtration rate ( GFR) estimation/1.73 sq m using serum, plasma, or whole bOrdered By: Kal Mcdonald on 11-27-2024 GFR/1.73 sq M.predicted among non-blacks MDRD (S/P/Bld) [Vol rate/Area] 52 mL/min/{1.73_m2} Low >60 [facility] Comment on above: mL/min/1.73m2 CKD-EP I Creatinine Equation (2020) Hematocrit Auto (Bld) [Volum e fraction]Ordered By: Kal Mcdonald on 11-27-2024 Hematocrit (Bld) [Volume fraction] 41.3 % 40-54 [facility] Hemoglobin measurementOrdere d By: Kal Mcdonald on 11-27-2024 Hemoglobin (Bld) [Mass/Vol] 13.8 g/dL 13.0-16.5 [facility] Immature granulocytes/100 WB C Auto (Bld)Ordered By: Kal Mcdonald on 11-27-2024 Immature granulocytes/100 WBC (Bld) 0.800 % 0.0-0.9 [facility] Comment on above: IG% - Immature Granu locytes (promyelocytes, myelocytes and metamyelocytes) > 1% indicates that a LEFT SHIFT is Present. International normalized rat io (INR) calculationOrdered By: Kal Mcdonald on 11-27-2024 INR Coag (Bld) [Relative time] 1.1 {INR} [facility] Ketones Test strip Ql (U)Ord ered By: Kal Mcdonald on 11-27-2024 Ketones Ql (U) Negative Negative [facility] Laboratory - Chemistry and C hemistry - challengeOrdered By: Kal Mcdonald on 11-27-2024 AST [Catalytic activity/Vol] 24 U/L <38 [facility] Lactic acid measurementOrder ed By: Kal Mcdonald on 11-27-2024 Lactate [Moles/Vol] 1.2 mmol/L 0.0-2.0 [facility] MCV (mean corpuscular volume ) determinationOrdered By: Kal Mcdonald on 11-27-2024 MCV (RBC) [Entitic vol] 94.1 fL High 80-94 [facility] Mean corpuscular hemoglobin (MCH) determinationOrdered By: Kal Mcdonald on 11-27-2024 MCH (RBC) [Entitic mass] 31.4 pg 27.0-32.0 [facility] Mean corpuscular hemoglobin concentration (MCHC) determinationOrdered By: Kal Mcdonald on 11-27-2024 MCHC (RBC) [Mass/Vol] 33.4 g/dL 32-36 [facility] Mean platelet volume determi nationOrdered By: Kal Mcdonald on 11-27-2024 Platelet mean volume (Bld) [Entitic vol] 10.7 fL 6.2-12.0 [facility] Microscopic analysis of urin e for red blood cells (RBC)Ordered By: Kal Mcdonald on 11-27-2024 Microscopic analysis of urine for red blood cells (RBC) 0-5 SEEN /hpf 0-5 [facility] Monocyte percentageOrdered B y: Kal Mcdonald on 11-27-2024 Monocytes/100 WBC (Bld) 8.0 % 0-10 [facility] Mucus LM Ql (Urine sed)Order ed By: Kal Mcdonald on 11-27-2024 Mucus Ql (Urine sed) 0 SEEN /hpf [facility] Neutrophil percentageOrdered By: Kal Mcdonald on 11-27-2024 Neutrophils/100 WBC (Bld) 84.9 % High 47-70 [facility] Nitrite Test strip Ql (U)Ord ered By: Kal Mcdonald on 11-27-2024 Nitrite Ql (U) Negative Negative [facility] Nucleated red blood cell per centageOrdered By: Kal Mcdonald on 11-27-2024 Nucleated RBC/100 WBC (Bld) [Ratio] 0 % 0-5 [facility] Platelet countOrdered By: Mariano Mcdonald on 11-27-2024 Platelets (Bld) [#/Vol] 202 10*3/uL 150-450 [facility] Potassium measurement (mass/ volume)Ordered By: Kal Mcdonald on 11-27-2024 Potassium (Unsp spec) [Mass/Vol] 3.5 mmol/L 3.3-5.1 [facility] Protein Test strip Ql (U)Ord ered By: Kal Mcdonald on 11-27-2024 Protein Ql (U) 100 mg/dl High Negative [facility] Prothrombin timeOrdered By: Kal Mcdonald on 11-27-2024 PT Coag (PPP) [Time] 14.1 s 11.7-14.[address] [facility] RBC Auto (Bld) [#/Vol]Ordere d By: Kal Mcdonald on 11-27-2024 RBC (Bld) [#/Vol] 4.39 10*6/uL Low 4.6-6.2 [facility] Serum creatinine measurement (mass/volume)Ordered By: Kal Mcdonald on 11-27-2024 Creatinine [Mass/Vol] 1.42 mg/dL High 0.70-1.20 [facility] Serum globulin measurementOr dered By: Kal Mcdonald on 11-27-2024 Globulin (S) [Mass/Vol] 4.6 g/dL High 2.2-4.2 [facility] Serum glucose measurement (m ass/volume)Ordered By: Kal Mcdonald on 11-27-2024 Glucose [Mass/Vol] 111 mg/dL High 70-99 [facility] Serum or plasma alanine rosario otransferase (ALT) measurementOrdered By: Kal Mcdonald on 11-27-2024 ALT [Catalytic activity/Vol] 20 U/L <47 [facility] Serum or plasma albumin jessica urement (mass/volume)Ordered By: Kal Mcdonald on 11-27-2024 Albumin [Mass/Vol] 4.7 g/dL 3.4-4.8 [facility] Serum or plasma albumin/glob ulin mass ratioOrdered By: Kal Mcdonald on 11-27-2024 Albumin/Globulin [Mass ratio] 1.0 {ratio} 0.9-2.4 [facility] Serum or plasma alkaline zulma sphatase measurementOrdered By: Kal Mcdonald on 11-27-2024 ALP [Catalytic activity/Vol] 56 U/L 40-129 [facility] Serum or plasma calcium jessica urement (mass/volume)Ordered By: Kal Mcdonald on 11-27-2024 Calcium [Mass/Vol] 9.7 mg/dL 7.6-11.0 [facility] Serum or plasma urea nitroge n measurement (mass/volume)Ordered By: Kal Mcdonald on 11-27-2024 Urea nitrogen [Mass/Vol] 23 mg/dL High 4-19 [facility] Sodium levelOrdered By: Eva Mcdonald on 11-27-2024 Sodium [Moles/Vol] 134 mmol/L 133-145 [facility] Squamous epithelial cells de tection in urine sediment by light microscopyOrdered By: Kal Mcdonald on 11-27-2024 Epithelial cells.squamous LM Ql (Urine sed) 0-5 SEEN /hpf 0-5 [facility] T4 freeOrdered By: Kal yu on 11-27-2024 Free T4 [Mass/Vol] 1.00 ng/dL 0.76-1.46 [facility] TSH DL <= 0.005 mIU/L QnOrde red By: Kal Mcdonald on 11-27-2024 TSH Qn 2.420 uIU/mL 0.300-4.200 [facility] Total proteinOrdered By: Kendell Mcdonald on 11-27-2024 Protein [Mass/Vol] 9.3 g/dL High 5.9-8.4 [facility] Urine clarityOrdered By: Kendell Mcdonald on 11-27-2024 Clarity (U) Clear Clear [facility] Urine color determinationOrd ered By: Kal Mcdonald on 11-27-2024 Color (U) Straw Yellow [facility] Urine glucose detectionOrder ed By: Kal Mcdonald on 11-27-2024 Glucose Ql (U) Normal mg/dl Normal [facility] Urine leukocyte esterase det ection by dipstickOrdered By: Kal Mcdonald on 11-27-2024 Leukocyte esterase Test strip Ql (U) Negative Negative [facility] Urine pHOrdered By: Kal allison on 11-27-2024 pH (U) 6.0 [pH] 5.0 - 8.0 [facility] Urine sediment bacteria coun t by microscopy (number/high power field)Ordered By: Kal Mcdonald on 11-27-2024 Bacteria LM.HPF (Urine sed) [#/Area] 0 /[HPF] None Seen [facility] Urine specific gravity measu rementOrdered By: Kal Mcdonald on 11-27-2024 Specific gravity (U) [Rel density] 1.015 1.002-1.030 [facility] Urine urobilinogen measureme ntOrdered By: Kal Tamara on 11-27-2024 Urobilinogen Ql (U) Normal mg/dl Normal [facility] White blood cell (WBC) count Ordered By: Kal Mcdonald on 11-27-2024 WBC (Bld) [#/Vol] 17.9 10*3/uL High 4.4-11.0 [facility] White blood cell countOrdere d By: Kal Mcdonald on 11-27-2024 White blood cell count 0-5 SEEN /hpf 0-5 [facility] Office Visit Reporton 2024 Office Visit Report [facility] [address] [place] [address] OFFICE VISIT Date of Service: 11/11/24 MR#: [id number] Acct: [id number] Patient: DONELL HERRMANN Rep #: [id number] : 1950 Provider: NEFTALI Davis Age/Sex: 74/M Location[place] [facility] Status: Signed Intake Vital Signs 08/27/21 12:32 [...] Reasons: CONCERN FOR SHINGLES Chief Complaint: rash [employer] Work[employer] Required: No Is patient in pain?: No [...] Trujillo Signature: Date (if applicable) CC: Normal [facility] Absolute lymphocyte countOrd ered By: Guilherme Erickson on 11-08-2024 Lymphocytes Auto (Unsp spec) [#/Vol] 1.42 10*3/uL 0.83-4.51 [facility] Absolute neutrophil countOrd ered By: Guilherme Erickson on 11-08-2024 Neutrophils (Bld) [#/Vol] 4.9 10*3/uL 2.0-7.7 [facility] Anion gap in Serum or Plasma Ordered By: Guilherme Erickson on 11-08-2024 Anion gap [Moles/Vol] 11 mmol/L 5- [facility] Automated lymphocyte count a s percentage of total leukocytesOrdered By: Guilherme Erickson on 11-08-2024 Lymphocytes/100 WBC Auto (Unsp spec) 19.1 % - [facility] BUN/creatinine ratioOrdered By: Guilherme Erickson on 11-08-2024 Urea nitrogen/Creatinine [Mass ratio] 23.5 mg/mg High 10- [facility] Basophil percentageOrdered B y: Guilherme Erickson on 11-08-2024 Basophils/100 WBC (Bld) 0.4 % 0- [facility] Bilirubin, totalOrdered By: Guilherme Erickson on 11-08-2024 Bilirubin [Mass/Vol] 0.61 mg/dL 0.00-1.[address] [facility] CBC W/Diff, Automatedon 10-30 Absolute Lymph 1.42 X10 3/uL Normal 0.83-4.51 [facility] Comment on above: Order Comment: Order Date: 10/22/24 Order Info: [id number] - CBCD Performed By: #### L 500.6388, L501.9911, L501.8420, L500.4100, L501.9910, L100.0100 #### [facility] [address] [place], [address] Absolute Neut 4.9 X10 3/uL Normal 2.0-7.7 [facility] Comment on above: Order Comment: Order Date: 10/22/24 Order Info: [id number] - CBCD Performed By: #### L 500.4050, L501.9985, L501.9520, L500.4100, L501.9910, L100.0100 #### [facility] [address] [place], [address] Basophils/100 WBC (Bld) 0.4 % Normal 0-1 [facility] Comment on above: Order Comment: Order Date: 10/22/24 Order Info: 0184-1 - CBCD Performed By: #### L 500.4050, L501.9985, L501.9520, L500.4100, L501.9910, L100.0100 #### [facility] [address] [place], [address] Eosinophils/100 WBC (Bld) 2.3 % Normal 0-5 [facility] Comment on above: Order Comment: Order Date: 10/22/24 Order Info: 0184-1 - CBCD Performed By: #### L 500.4050, L501.9985, L501.9520, L500.4100, L501.9910, L100.0100 #### [facility] [address] [place], [address] Erythrocyte distribution width (RBC) [Ratio] 14.5 % Normal 11.6-14.6 [facility] Comment on above: Order Comment: Order Date: 10/22/24 Order Info: 0184-1 - CBCD Performed By: #### L 500.4050, L501.9985, L501.9520, L500.4100, L501.9910, L100.0100 #### [facility] [address] [place], [address] Hematocrit (Bld) [Volume fraction] 40.2 % Normal 40-54 [facility] Comment on above: Order Comment: Order Date: 10/22/24 Order Info: 0184-1 - CBCD Performed By: #### L 500.4050, L501.9985, L501.9520, L500.4100, L501.9910, L100.0100 #### [facility] [address] [place], [address] Hemoglobin (Bld) [Mass/Vol] 13.1 g/dL Normal 13.0-16.5 [facility] Comment on above: Order Comment: Order Date: 10/22/24 Order Info: 0184-1 - CBCD Performed By: #### L 500.4050, L501.9985, L501.9520, L500.4100, L501.9910, L100.0100 #### [facility] [address] [place], [address] IG% 0.500 Normal 0.0-0.9 [facility] Comment on above: Order Comment: Order Date: 10/22/24 Order Info: 0184-1 - CBCD Result Comment: IG% - Immature Granulocytes (promyelocytes, myelocytes and metamyelocytes) > 1% indicates that a LEFT SHIFT is Present. Performed By: #### L 500.4050, L501.9985, L501.9520, L500.4100, L501.9910, L100.0100 #### [facility] [address] [place], [address] Lymphocytes/100 WBC (Bld) 19.1 % Normal 19-41 [facility] Comment on above: Order Comment: Order Date: 10/22/24 Order Info: 0184-1 - CBCD Performed By: #### L 500.4050, L501.9985, L501.9520, L500.4100, L501.9910, L100.0100 #### [facility] [address] [place], [address] MCH (RBC) [Entitic mass] 31.7 pg Normal 27.0-32.0 [facility] Comment on above: Order Comment: Order Date: 10/22/24 Order Info: 0184-1 - CBCD Performed By: #### L 500.4050, L501.9985, L501.9520, L500.4100, L501.9910, L100.0100 #### [facility] [address] [place], [address] MCHC (RBC) [Mass/Vol] 32.6 g/dL Normal 32-36 [facility] Comment on above: Order Comment: Order Date: 10/22/24 Order Info: 0184-1 - CBCD Performed By: #### L 500.4050, L501.9985, L501.9520, L500.4100, L501.9910, L100.0100 #### [facility] [address] [facility] [place], [address] MCV (RBC) [Entitic vol] 97.3 fL High 80-94 [facility] Comment on above: Order Comment: Order Date: 10/22/24 Order Info: 0184-1 - CBCD Performed By: #### L 500.4050, L501.9985, L501.9520, L500.4100, L501.9910, L100.0100 #### [facility] [address] [facility] [place], [address] Monocytes/100 WBC (Bld) 12.4 % High 0-10 [facility] Comment on above: Order Comment: Order Date: 10/22/24 Order Info: 0184-1 - CBCD Performed By: #### L 500.4050, L501.9985, L501.9520, L500.4100, L501.9910, L100.0100 #### [facility] [address] [place], [address] Neutrophils/100 WBC (Bld) 65.3 % Normal 47-70 [facility] Comment on above: Order Comment: Order Date: 10/22/24 Order Info: 0184-1 - CBCD Performed By: #### L 500.4050, L501.9985, L501.9520, L500.4100, L501.9910, L100.0100 #### [facility] [address] [place], [address] Nucleated RBC (Bld) [#/Vol] 0 10*3/uL Normal 0-5 [facility] Comment on above: Order Comment: Order Date: 10/22/24 Order Info: 0184-1 - CBCD Performed By: #### L 500.4050, L501.9985, L501.9520, L500.4100, L501.9910, L100.0100 #### [facility] [address] [place], [address] Platelet mean volume (Bld) [Entitic vol] 12.1 fL High 6.2-12.0 [facility] Comment on above: Order Comment: Order Date: 10/22/24 Order Info: 0184-1 - CBCD Performed By: #### L 500.4050, L501.9985, L501.9520, L500.4100, L501.9910, L100.0100 #### [facility] [address] [place], [address] Platelets (Bld) [#/Vol] 195 10*3/uL Normal 150-450 [facility] Comment on above: Order Comment: Order Date: 10/22/24 Order Info: 0184-1 - CBCD Performed By: #### L 500.4050, L501.9985, L501.9520, L500.4100, L501.9910, L100.0100 #### [facility] [address] [place], [address] RBC (Bld) [#/Vol] 4.13 10*6/uL Low 4.6-6.2 [facility] Comment on above: Order Comment: Order Date: 10/22/24 Order Info: 0184-1 - CBCD Performed By: #### L 500.4050, L501.9985, L501.9520, L500.4100, L501.9910, L100.0100 #### [facility] [address] [place], [address] RDW SD 51.7 fl High 35.1-43.9 [facility] Comment on above: Order Comment: Order Date: 10/22/24 Order Info: 0184-1 - CBCD Performed By: #### L 500.4050, L501.9985, L501.9520, L500.4100, L501.9910, L100.0100 #### [facility] [address] [place], [address] WBC (Bld) [#/Vol] 7.4 10*3/uL Normal 4.4-11.0 [facility] Comment on above: Order Comment: Order Date: 10/22/24 Order Info: [id number] - CBCD Performed By: #### L 500.4050, L501.9985, L501.9520, L500.4100, L501.9910, L100.0100 #### [facility] [address] [place], [address] Calculated very low density lipoprotein (VLDL) cholesterol measurementOrdered By: Guilherme Erickson on 11-08-2024 Calculated very low density lipoprotein (VLDL) cholesterol measurement 19 mg/dL 5-40 [facility] Carbon dioxide, total [Moles /volume] in Central venous bloodOrdered By: Guilherme Erickson on 11-08-2024 CO2 [Moles/Vol] 23.0 mmol/L 21.0-32.0 [facility] Chloride assayOrdered By: Bimal Erickson on 11-08-2024 Chloride [Moles/Vol] 102 mmol/L 98-[address] [facility] Comprehensive Metabolic Prof ilon 11-08-2024 Albumin/Globulin [Mass ratio] 1.1 {ratio} Normal 0.9-2.4 [facility] Comment on above: Order Comment: Order Date: 10/22/24 Order Info: [id number] - CMP Order Info: - LIPID Order Info: [id number] - TSH Order Info: [id number] - PSA Performed By: #### L 500.4050, L501.9985, L501.9520, L500.4100, L501.9910, L100.0100 #### [facility] [address] [place], [place], [address] ALK PHOS 55 U/L Normal 40-129 [facility] Comment on above: Order Comment: Order Date: 10/22/24 Order Info: [id number] - CMP Order Info: - LIPID Order Info: [id number] - TSH Order Info: [id number] - PSA Performed By: #### L 500.4050, L501.9985, L501.9520, L500.4100, L501.9910, L100.0100 #### [facility] [address] [facility] [address] [place], [place], [address] ALT [Catalytic activity/Vol] 21 U/L Normal <=46 [facility] Comment on above: Order Comment: Order Date: 10/22/24 Order Info: [id number] - CMP Order Info: - LIPID Order Info: [id number] - TSH Order Info: [id number] - PSA Performed By: #### L 500.4050, L501.9985, L501.9520, L500.4100, L501.9910, L100.0100 #### [facility] [address] [place], [address] AST [Catalytic activity/Vol] 29 U/L Normal <=37 [facility] Comment on above: Order Comment: Order Date: 10/22/24 Order Info: [id number] - CMP Order Info: - LIPID Order Info: [id number] - TSH Order Info: [id number] - PSA Performed By: #### L 500.4050, L501.9985, L501.9520, L500.4100, L501.9910, L100.0100 #### [facility] [address] [place], [address] Bilirubin [Mass/Vol] 0.61 mg/dL Normal 0.00-1.[address] [facility] Comment on above: Order Comment: Order Date: 10/22/24 Order Info: [id number] - CMP Order Info: [id number] - LIPID Order Info: [id number] - TSH Order Info: 2857-1 - PSA Performed By: #### L 500.4050, L501.9985, L501.9520, L500.4100, L501.9910, L100.0100 #### [facility] [address] [place], [address] Calcium [Mass/Vol] 9.2 mg/dL Normal 7.6-11.0 [facility] Comment on above: Order Comment: Order Date: 10/22/24 Order Info: [id number] - CMP Order Info: - LIPID Order Info: 3 - TSH Order Info: [id number] - PSA Performed By: #### L 500.4050, L501.9985, L501.9520, L500.4100, L501.9910, L100.0100 #### [facility] [address] [place], [address] Chloride [Moles/Vol] 102 mmol/L Normal 98-[address] [facility] Comment on above: Order Comment: Order Date: 10/22/24 Order Info: 07-1 - CMP Order Info: [id number] - LIPID Order Info: [id number] - TSH Order Info: 2857-1 - PSA Performed By: #### L 500.4050, L501.9985, L501.9520, L500.4100, L501.9910, L100.0100 #### [facility] [address] [place], [address] CO2 [Moles/Vol] 23.0 mmol/L Normal 21.0-32.0 [facility] Comment on above: Order Comment: Order Date: 10/22/24 Order Info: 07-1 - CMP Order Info: - LIPID Order Info: [id number] - TSH Order Info: 7-1 - PSA Performed By: #### L 500.4050, L501.9985, L501.9520, L500.4100, L501.9910, L100.0100 #### [facility] [address] [place], [address] GAP 11 Normal 5-15 [facility] Comment on above: Order Comment: Order Date: 10/22/24 Order Info: [id number]- - CMP Order Info: - LIPID Order Info: [id number] - TSH Order Info: [id number] - PSA Performed By: #### L 500.4050, L501.9985, L501.9520, L500.4100, L501.9910, L100.0100 #### [facility] [address] [place], [place], [address] Potassium [Moles/Vol] 4.5 mmol/L Normal 3.3-5.1 [facility] Comment on above: Order Comment: Order Date: 10/22/24 Order Info: [id number] - CMP Order Info: - LIPID Order Info: [id number] - TSH Order Info: 7-1 - PSA Performed By: #### L 500.4050, L501.9985, L501.9520, L500.4100, L501.9910, L100.0100 #### [facility] [address] [place], [address] Sodium [Moles/Vol] 137 mmol/L Normal 133-145 [facility] Comment on above: Order Comment: Order Date: 10/22/24 Order Info: [id number] - CMP Order Info: [id number] - LIPID Order Info: 3 - TSH Order Info: [id number] - PSA Performed By: #### L 500.4050, L501.9985, L501.9520, L500.4100, L501.9910, L100.0100 #### [facility] [address] [place], [address] Albumin [Mass/Vol] 4.4 g/dL Normal 3.4-4.8 [facility] Comment on above: Order Comment: Order Date: 10/22/24 Order Info: [id number] - CMP Order Info: [id number] - LIPID Order Info: 3 - TSH Order Info: 7-1 - PSA Performed By: #### L 500.4050, L501.9985, L501.9520, L500.4100, L501.9910, L100.0100 #### [facility] [address] [place], [address] BUN/CRE 23.5 RATIO High 10-20 [facility] Comment on above: Order Comment: Order Date: 10/22/24 Order Info: [id number]- - CMP Order Info: - LIPID Order Info: [id number] - TSH Order Info: 71 - PSA Performed By: #### L 500.4050, L501.9985, L501.9520, L500.4100, L501.9910, L100.0100 #### [facility] [address] [place], [address] Creatinine [Mass/Vol] 1.38 mg/dL High 0.70-1.20 [facility] Comment on above: Order Comment: Order Date: 10/22/24 Order Info: [id number] - CMP Order Info: [id number] - LIPID Order Info: 3 - TSH Order Info: [id number] - PSA Performed By: #### L 500.4050, L501.9985, L501.9520, L500.4100, L501.9910, L100.0100 #### [facility] [address] [place], [address] GFR/1.73 sq M.predicted among non-blacks MDRD (S/P/Bld) [Vol rate/Area] 53 mL/min/{1.73_m2} Low >60 [facility] Comment on above: Order Comment: Order Date: 10/22/24 Order Info: [id number] - CMP Order Info: [id number] - LIPID Order Info: 3 - TSH Order Info: 7-1 - PSA Result Comment: mL/m in/1.73m2 CKD-EPI Creatinine Equation (2020) Performed By: #### L 500.4050, L501.9985, L501.9520, L500.4100, L501.9910, L100.0100 #### [facility] [address] [place], [address] Globulin (S) [Mass/Vol] 4.1 g/dL Normal 2.2-4.2 [facility] Comment on above: Order Comment: Order Date: 10/22/24 Order Info: 0786 - CMP Order Info: [id number] - LIPID Order Info: [id number] - TSH Order Info: 2856-05 - PSA Performed By: #### L 500.4050, L501.9985, L501.9520, L500.4100, L501.9910, L100.0100 #### [facility] [address] [place], [address] Glucose [Mass/Vol] 105 mg/dL High 70-99 [facility] Comment on above: Order Comment: Order Date: 10/22/24 Order Info: 0786- - CMP Order Info: [id number] - LIPID Order Info: 3 - TSH Order Info: 1 - PSA Performed By: #### L 500.4050, L501.9985, L501.9520, L500.4100, L501.9910, L100.0100 #### [facility] [address] [place], [address] T PROT 8.4 g/dL Normal 5.9-8.4 [facility] Comment on above: Order Comment: Order Date: 10/22/24 Order Info: 86-1 - CMP Order Info: [id number] - LIPID Order Info: 3013 - TSH Order Info: [id number] - PSA Performed By: #### L 500.4050, L501.9985, L501.9520, L500.4100, L501.9910, L100.0100 #### [facility] [address] [place], [place], [address] Urea nitrogen [Mass/Vol] 32 mg/dL High 4-19 [facility] Comment on above: Order Comment: Order Date: 10/22/24 Order Info: [id number] - CMP Order Info: [id number] - LIPID Order Info: 3 - TSH Order Info: [id number] - PSA Performed By: #### L 500.4050, L501.9985, L501.9520, L500.4100, L501.9910, L100.0100 #### [facility] [address] [place], [place], [id number] Eosinophil percentageOrdered By: Guilherme Erickson on 11-08-2024 Eosinophils/100 WBC (Bld) 2.3 % 0-5 [facility] Erythrocyte distribution wid th ratioOrdered By: Guilherme Erickson on 11-08-2024 Erythrocyte distribution width (RBC) [Ratio] 14.5 % 11.6-14.6 [facility] Erythrocyte distribution wid th standard deviationOrdered By: Guilherme Erickson on 11-08-2024 Erythrocyte distribution width (RBC) [Ratio] 51.7 fl High 35.1-43.9 [facility] Glomerular filtration rate ( GFR) estimation/1.73 sq m using serum, plasma, or whole bOrdered By: Guilherme Erickson on 11-08-2024 GFR/1.73 sq M.predicted among non-blacks MDRD (S/P/Bld) [Vol rate/Area] 53 mL/min/{1.73_m2} Low >60 [facility] Comment on above: mL/min/1.73m2 CKD-EP I Creatinine Equation (2020) Hematocrit Auto (Bld) [Volum e fraction]Ordered By: Guilherme Erickson on 11-08-2024 Hematocrit (Bld) [Volume fraction] 40.2 % 40-54 [facility] Hemoglobin A1con 11-08-2024 HbA1c (Bld) [Mass fraction] 6.2 % High <=5.6 [facility] Comment on above: Order Comment: Order Date: 10/22/24 Order Info: [id number] - A1C Result Comment: Norm al < 5.7 % Prediabetic 5.7 - 6.4 % Diabetic >or= 6.5 % Please note range changes. Performed By: #### L 500.4050, L501.9985, L501.9520, L500.4100, L501.9910, L100.0100 #### [facility] [place], [address] Hemoglobin A1c percentageOrd ered By: Guilherme Erickson on 11-08-2024 HbA1c (Bld) [Mass fraction] 6.2 % High <5.7 [facility] Comment on above: Normal < 5.7 % Predi abetic 5.7 - 6.4 % Diabetic >or= 6.5 % Please note range changes. Hemoglobin measurementOrdere d By: Guilherme Erickson on 11-08-2024 Hemoglobin (Bld) [Mass/Vol] 13.1 g/dL 13.0-16.5 [facility] Immature granulocytes/100 WB C Auto (Bld)Ordered By: Guilherme Erickson on 11-08-2024 Immature granulocytes/100 WBC (Bld) 0.500 % 0.0-0.9 [facility] Comment on above: IG% - Immature Granu locytes (promyelocytes, myelocytes and metamyelocytes) > 1% indicates that a LEFT SHIFT is Present. LDL calc ser/plasOrdered By: Guilherme Erickson on 11-08-2024 Cholesterol in LDL [Mass/Vol] 114 mg/dL [facility] Comment on above: Kzbyvcznxv=610-506 m g/dL & Higher Vueo=976 mg/dL or greater Laboratory - Chemistry and C hemistry - challengeOrdered By: Guilherme Erickson on 11-08-2024 AST [Catalytic activity/Vol] 29 U/L <38 [facility] Lipid Profileon 07-10-2025 CHOL:HDL 5.42 Normal [facility] Comment on above: Order Comment: Order Date: 10/22/24 Order Info: 07 - CMP Order Info: - LIPID Order Info: [id number] - TSH Order Info: [id number] - PSA Performed By: #### L 500.4050, L501.9985, L501.9520, L500.4100, L501.9910, L100.0100 #### [facility] [address] [place], [place], [id number] (350) Cholesterol [Mass/Vol] 162 mg/dL Normal <=200 [facility] Comment on above: Order Comment: Order Date: 10/22/24 Order Info: [id number] - CMP Order Info: - LIPID Order Info: [id number] - TSH Order Info: [id number] - PSA Result Comment: Chol esterol level, Desirable <200 mg/dL Borderline high cholesterol 200-239 mg/dL High cholesterol >=240 mg/dL Recommendations of the NCEP Adult Treatment Panel for the following risk-cutoff thresholds for the [place] population. Performed By: #### L 500.4050, L501.9985, L501.9520, L500.4100, L501.9910, L100.0100 #### [facility] [address] [place], [address] Cholesterol in HDL [Mass/Vol] 30 mg/dL Low [facility] Comment on above: Order Comment: Order [...] 500.4050, L501.9985, L501.9520, L500.4100, L501.9910, L100.0100 #### [facility] [address] [place], [address] Cholesterol in LDL [Mass/Vol] 114 mg/dL Normal [facility] Comment on above: Order Comment: Order Date: 10/22/24 Order Info: [id number] - CMP Order Info: [id number] - LIPID Order Info: 3 - TSH Order Info: [id number]- - PSA Result Comment: Bord qedbbo=039-038 mg/dL Higher Ivqe=114 mg/dL or greater Performed By: #### L 500.4050, L501.9985, L501.9520, L500.4100, L501.9910, L100.0100 #### [facility] [address] [place], [address] Cholesterol in VLDL [Mass/Vol] 19 mg/dL Normal 5-40 [facility] Comment on above: Order Comment: Order Date: 10/22/24 Order Info: [id number] - CMP Order Info: - LIPID Order Info: [id number] - TSH Order Info: 2856-05 - PSA Performed By: #### L 500.4050, L501.9985, L501.9520, L500.4100, L501.9910, L100.0100 #### [facility] [address] [place], [address] Triglyceride [Mass/Vol] 93 mg/dL Normal [facility] Comment on above: Order Comment: Order [...] 500.4050, L501.9985, L501.9520, L500.4100, L501.9910, L100.0100 #### [facility] [place], [address] MCV (mean corpuscular volume ) determinationOrdered By: Guliherme Erickson on 11-08-2024 MCV (RBC) [Entitic vol] 97.3 fL High 80-94 [facility] Mean corpuscular hemoglobin (MCH) determinationOrdered By: Guilherme Erickson on 11-08-2024 MCH (RBC) [Entitic mass] 31.7 pg 27.0-32.0 [facility] Mean corpuscular hemoglobin concentration (MCHC) determinationOrdered By: Guilherme Erickson on 11-08-2024 MCHC (RBC) [Mass/Vol] 32.6 g/dL 32-36 [facility] Mean platelet volume determi nationOrdered By: Guilherme Erickson on 11-08-2024 Platelet mean volume (Bld) [Entitic vol] 12.1 fL High 6.2-12.0 [facility] Monocyte percentageOrdered B y: Guilherme Erickson on 11-08-2024 Monocytes/100 WBC (Bld) 12.4 % High 0-10 [facility] Neutrophil percentageOrdered By: Guilhermelizabeth Erickson on 11-08-2024 Neutrophils/100 WBC (Bld) 65.3 % 47-70 [facility] Nucleated red blood cell per centageOrdered By: Guilherme Erickson on 11-08-2024 Nucleated RBC/100 WBC (Bld) [Ratio] 0 % 0-5 [facility] PSA,Total - Annual Screenon 11-08-2024 PSA,TOT SCREEN 1.90 ng/mL Normal 0.02-4.00 [facility] Comment on above: Order Comment: Order Date: 10/22/24 Order Info: 0786-1 - CMP Order Info: [id number] - LIPID Order Info: 3016-3 - TSH [...] 500.4050, L501.9985, L501.9520, L500.4100, L501.9910, L100.0100 #### [facility] [address] [place], [address] Platelet countOrdered By: Bimal Erickson on 11-08-2024 Platelets (Bld) [#/Vol] 195 10*3/uL 150-450 [facility] Potassium measurement (mass/ volume)Ordered By: Guilherme Erickson on 11-08-2024 Potassium (Unsp spec) [Mass/Vol] 4.5 mmol/L 3.3-5.1 [facility] RBC Auto (Bld) [#/Vol]Ordere d By: Guilherme Erickson on 11-08-2024 RBC (Bld) [#/Vol] 4.13 10*6/uL Low 4.6-6.2 [facility] Screening total cholesterol/ high density lipoprotein (HDL) cholesterol ratioOrdered By: Guilherme Erickson on 11-08-2024 Cholesterol.total/Chol esterol in HDL [Mass ratio] 5.42 {ratio} [facility] Serum creatinine measurement (mass/volume)Ordered By: Guilherme Erickson on 11-08-2024 Creatinine [Mass/Vol] 1.38 mg/dL High 0.70-1.20 [facility] Serum globulin measurementOr dered By: Guilherme Erickson on 11-08-2024 Globulin (S) [Mass/Vol] 4.1 g/dL 2.2-4.2 [facility] Serum glucose measurement (m ass/volume)Ordered By: Guilherme Erickson on 11-08-2024 Glucose [Mass/Vol] 105 mg/dL High 70-99 [facility] Serum or plasma alanine rosario otransferase (ALT) measurementOrdered By: Guilherme Erickson 11-08-2024 ALT [Catalytic activity/Vol] 21 U/L <47 [facility] Serum or plasma albumin jessica urement (mass/volume)Ordered By: Guilherme Erickson on 11-08-2024 Albumin [Mass/Vol] 4.4 g/dL 3.4-4.8 [facility] Serum or plasma albumin/glob ulin mass ratioOrdered By: Guilherme Erickson on 11-08-2024 Albumin/Globulin [Mass ratio] 1.1 {ratio} 0.9-2.4 [facility] Serum or plasma alkaline zulma sphatase measurementOrdered By: Guilherme Erickson on 11-08-2024 ALP [Catalytic activity/Vol] 55 U/L 40-129 [facility] Serum or plasma calcium jessica urement (mass/volume)Ordered By: Guilherme Erickson on 11-08-2024 Calcium [Mass/Vol] 9.2 mg/dL 7.6-11.0 [facility] Serum or plasma cholesterol in HDL measurement (mass/volume)Ordered By: Guilherme Erickson on 11-08-2024 Cholesterol in HDL [Mass/Vol] 30 mg/dL Low >40 [facility] Comment on above: National Cholesterol Education Program (NCEP) guidelines:<40 mg/dL: Low HDL-cholesterol (major risk factor for CHD)>= 60 mg/dL: High HDL-cholesterol (negative risk factor for CHD)HDL-cholesterol is affected by a number of factors, e.g. smoking, exercise, hormones, sex and age. Serum or plasma cholesterol measurement (mass/volume)Ordered By: Guilherme Erickson on 11-08-2024 Cholesterol [Mass/Vol] 162 mg/dL <201 [facility] Comment on above: Cholesterol level, D esirable <200 mg/dLBorderline high cholesterol 200-239 mg/dLHigh cholesterol >=240 mg/dLRecommendations of the NCEP Adult Treatment Panel for the following risk-cutoff thresholds for the [place] population. Serum or plasma urea nitroge n measurement (mass/volume)Ordered By: Guilherme Erickson on 11-08-2024 Urea nitrogen [Mass/Vol] 32 mg/dL High 4-19 [facility] Sodium levelOrdered By: Guilherme Erickson 11-08-2024 Sodium [Moles/Vol] 137 mmol/L 133-145 [facility] TSH DL <= 0.005 mIU/L QnOrde red By: Guilherme Erickson on 11-08-2024 TSH Qn 2.960 uIU/mL 0.300-4.200 [facility] Thyroid Stim Hormone (TSH)on 11-08-2024 TSH 2.960 uIU/mL Normal 0.300-4.200 [facility] Comment on above: Order Comment: Order Date: 10/22/24 Order Info: 0786-1 - CMP Order Info: [id number] - LIPID Order Info: 3016-3 - TSH Order Info: 2857-1 - PSA Performed By: #### L 500.4050, L501.9985, L501.9520, L500.4100, L501.9910, L100.0100 #### [facility] [address] [place], [place], [id number] Total proteinOrdered By: Sheila Erickson on 11-08-2024 Protein [Mass/Vol] 8.4 g/dL 5.9-8.4 [facility] Triglycerides measurementOrd ered By: Guilherme Erickson on 11-08-2024 Triglyceride [Mass/Vol] 93 mg/dL <199 [facility] Comment on above: The drugs N-Acetylcy steine and Metamizole may falsely depress this assay. Normal range: <150 mg/dLBorderline High: 150-199 mg/dLHigh: 200-499 mg/dLVery High: >500 mg/dL White blood cell (WBC) count Ordered By: Guilherme Erickson on 11-08-2024 WBC (Bld) [#/Vol] 7.4 10*3/uL 4.4-11.0 [facility] Comprehensive Metabolic Prof ilon 05-21-2024 Albumin [Mass/Vol] 4.1 g/dL Normal 3.2-5.0 [facility] Comment on above: Order Comment: Order Date: 11/15/23 Order Info: 0786-1 - CMP Performed By: #### L 500.4050, L502.0250, L501.9985 #### [facility] [address] [place], [place], [id number] Albumin/Globulin [Mass ratio] 0.9 {ratio} Normal 0.9-2.4 [facility] Comment on above: Order Comment: Order Date: 11/15/23 Order Info: 0786-1 - CMP Performed By: #### L 500.4050, L502.0250, L501.9985 #### [facility] [address] [place], [address] ALK P 56 U/L Normal 45-117 [facility] Comment on above: Order Comment: Order Date: 11/15/23 Order Info: 0786-1 - CMP Performed By: #### L 500.4050, L502.0250, L501.9985 #### [facility] [address] [place], [address] ALT [Catalytic activity/Vol] 28 U/L Normal 16-61 [facility] Comment on above: Order Comment: Order Date: 11/15/23 Order Info: 0786-1 - CMP Performed By: #### L 500.4050, L502.0250, L501.9985 #### [facility] [address] [place], [address] AST [Catalytic activity/Vol] 22 U/L Normal 15-37 [facility] Comment on above: Order Comment: Order Date: 11/15/23 Order Info: 0786-1 - CMP Performed By: #### L 500.4050, L502.0250, L501.9985 #### [facility] [address] [place], [address] Bilirubin [Mass/Vol] 0.70 mg/dL Normal 0.20-1.[address] [facility] Comment on above: Order Comment: Order Date: 11/15/23 Order Info: 0786-1 - CMP Result Comment: For patients on eltrombopag therapy, use of Dimension [place] TBIL is not recommended. Performed By: #### L 500.4050, L502.0250, L501.9985 #### [facility] [address] [place], [address] BUN/CRE 22.0 RATIO High 10-20 [facility] Comment on above: Order Comment: Order Date: 11/15/23 Order Info: 0786-1 - CMP Performed By: #### L 500.4050, L502.0250, L501.9985 #### [facility] [address] [place], [address] CA,Total 9.5 mg/dL Normal 8.5-10.1 [facility] Comment on above: Order Comment: Order Date: 11/15/23 Order Info: 0786-1 - CMP Performed By: #### L 500.4050, L502.0250, L501.9985 #### [facility] [address] [place], [address] Chloride [Moles/Vol] 103 mmol/L Normal 98-[address] [facility] Comment on above: Order Comment: Order Date: 11/15/23 Order Info: 0786-1 - CMP Performed By: #### L 500.4050, L502.0250, L501.9985 #### [facility] [address] [place], [address] CO2 [Moles/Vol] 29.0 mmol/L Normal 21.0-32.0 [facility] Comment on above: Order Comment: Order Date: 11/15/23 Order Info: 0786-1 - CMP Performed By: #### L 500.4050, L502.0250, L501.9985 #### [facility] [address] [place], [address] Creatinine [Mass/Vol] 1.32 mg/dL High 0.70-1.30 [facility] Comment on above: Order Comment: Order Date: 11/15/23 Order Info: 0786-1 - CMP Result Comment: The validity of the calculated GFR GFRAA in patients over 70 years has not been determined. Clinical correlation is essential. Performed By: #### L 500.4050, L502.0250, L501.9985 #### [facility] [address] [place], [address] EST GFR - AA 68 mL/min Normal >60 [facility] Comment on above: Order Comment: Order Date: 11/15/23 Order Info: 0786-1 - CMP Result Comment: Afri can [place] GFR Calc Performed By: #### L 500.4050, L502.0250, L501.9985 #### [facility] [address] [place], [address] GAP 4 Low 5-15 [facility] Comment on above: Order Comment: Order Date: 11/15/23 Order Info: 0786-1 - CMP Performed By: #### L 500.4050, L502.0250, L501.9985 #### [facility] [address] [place], [address] GFR/1.73 sq M.predicted among non-blacks MDRD (S/P/Bld) [Vol rate/Area] 56 mL/min/{1.73_m2} Low >60 [facility] Comment on above: Order Comment: Order Date: 11/15/23 Order Info: 0786-1 - CMP Result Comment: Non- GFR Calc Performed By: #### L 500.4050, L502.0250, L501.9985 #### [facility] [address] [place], [address] Globulin (S) [Mass/Vol] 4.6 g/dL High 2.2-4.2 [facility] Comment on above: Order Comment: Order Date: 11/15/23 Order Info: 0786-1 - CMP Performed By: #### L 500.4050, L502.0250, L501.9985 #### [facility] [address] [place], [address] Glucose [Mass/Vol] 107 mg/dL High 74-106 [facility] Comment on above: Order Comment: Order Date: 11/15/23 Order Info: 0786-1 - CMP Result Comment: Fast ing Glucose result from 100 to 125 mg/dL suggests IMPAIRED HOMEOSTASIS per A.D.A. criteria. Performed By: #### L 500.4050, L502.0250, L501.9985 #### [facility] [address] [place], [address] Potassium [Moles/Vol] 4.2 mmol/L Normal 3.5-5.1 [facility] Comment on above: Order Comment: Order Date: 11/15/23 Order Info: 0786-1 - CMP Performed By: #### L 500.4050, L502.0250, L501.9985 #### [facility] [address] [place], [address] Sodium [Moles/Vol] 136 mmol/L Normal 136-145 [facility] Comment on above: Order Comment: Order Date: 11/15/23 Order Info: 0786-1 - CMP Performed By: #### L 500.4050, L502.0250, L501.9985 #### [facility] [address] [place], [address] T PROT 8.7 g/dL High 6.4-8.2 [facility] Comment on above: Order Comment: Order Date: 11/15/23 Order Info: 0786-1 - CMP Performed By: #### L 500.4050, L502.0250, L501.9985 #### [facility] [address] [place], [address] Urea nitrogen [Mass/Vol] 29 mg/dL High 7-18 [facility] Comment on above: Order Comment: Order Date: 11/15/23 Order Info: 0786-1 - CMP Performed By: #### L 500.4050, L502.0250, L501.9985 #### [facility] [address] [place], [address] Hemoglobin A1con 05-21-2024 HbA1c (Bld) [Mass fraction] 6.0 % High 3.8-5.6 [facility] Comment on above: Order Comment: Order Date: 11/15/23 Order Info: 4548-4 - A1C Result Comment: Norm al < 5.7 % Prediabetic 5.7 - 6.4 % Diabetic >or= 6.5 % Please note range changes. Performed By: #### L 500.4050, L502.0250, L501.9985 #### [facility] [address] [place], [address] Microalb:Creat Ratio,Random URon 05-21-2024 Creatinine [Mass/Vol] 24.30 mg/dL Normal NO RAN GE EST. [facility] Comment on above: Order Comment: Order Date: 11/15/23 Order Info: 0779-1 - MIACRE Performed By: #### L 500.4050, L502.0250, L501.9985 #### [facility] [address] [place], [address] MALB:CRE 41.2 mg/g CRE High <30 mg/g CRE [facility] Comment on above: Order Comment: Order Date: 11/15/23 Order Info: 0779-1 - MIACRE Performed By: #### L 500.4050, L502.0250, L501.9985 #### [facility] [address] [place], [address] MICROALBUMIN,UR 10.0 mg/L Normal NO RANGE EST. [facility] Comment on above: Order Comment: Order Date: 11/15/23 Order Info: 0779-1 - MIACRE Performed By: #### L 500.4050, L502.0250, L501.9985 #### [facility] [address] [place], [address] Basophil percentageOrdered B y: Guilherme Erickson on 02-15-2023 Bilirubin [Mass/Vol] 0.50 mg/dL 0.20-1.[address] [facility] Comment on above: For patients on eltr ombopag therapy, use of Dimension [place] TBIL is not recommended. Chloride [Moles/Vol] 104 mmol/L 98-[address] [facility] Glucose [Mass/Vol] 101 mg/dL 74-106 [facility] Comment on above: Fasting Glucose resu lt from 100 to 125 mg/dL suggests IMPAIRED HOMEOSTASIS per A.D.A. criteria. Potassium [Moles/Vol] 3.9 mmol/L 3.5-5.1 [facility] Protein [Mass/Vol] 8.9 g/dL 6.4-8.2 [facility] Sodium [Moles/Vol] 138 mmol/L 136-145 [facility] - Chemistry and C hemistry - challengeOrdered By: Guilherme Erickson on 02-15-2023 ALP [Catalytic activity/Vol] 60 U/L 45-117 [facility] ALT [Catalytic activity/Vol] 33 U/L 16-61 [facility] CO2 [Moles/Vol] 29.0 mmol/L 21.0-32.0 [facility] Globulin (S) [Mass/Vol] 4.8 g/dL 2.2-4.2 [facility] Urea nitrogen/Creatinine [Mass ratio] 23.1 mg/mg 10-20 [facility] No Panel InformationOrdered By: Guilherme Erickson on 02-15-2023 Estimated GFR (MDRD) Amer 70 mL/min >60 [facility] Comment on above: GFR Calc Estimated GFR (MDRD) Non-Af Amer 58 mL/min >60 [facility] Comment on above: Non- GFR Calc Prostate Specific Antigen Total 2.03 ng/mL 0.0-4.0 [facility] Comment on above: This test was perfor med using the TPSA assay method for the[employer] [facility] chemistry system. Values obtained with differentassay methods cannot be used interchangably.When changing PSA assays in the course of monitoring apatient, additional sequential testing should be carriedout to confirm baseline values. Serum or plasma albumin jessica urement (mass/volume)Ordered By: Guilherme Erickson on 02-15-2023 Albumin [Mass/Vol] 4.1 g/dL 3.2-5.0 [facility] Serum or plasma albumin/glob ulin mass ratioOrdered By: Guilherme Erickson on 02-15-2023 Albumin/Globulin [Mass ratio] 0.9 {ratio} 0.9-2.4 [facility] Serum or plasma calcium jessica urement (mass/volume)Ordered By: Guilherme Erickson on 02-15-2023 Calcium [Mass/Vol] 9.3 mg/dL 8.5-10.1 [facility] Serum or plasma creatinine m easurement (mass/volume)Ordered By: Guilherme Erickson on 02-15-2023 Creatinine [Mass/Vol] 1.30 mg/dL 0.70-1.30 [facility] Comment on above: The validity of the calculated GFR & GFRAA in patients over 70 years has not been determined. Clinical correlation is essential. Serum or plasma urea nitroge n measurement (mass/volume)Ordered By: Guilherme Erickson on 02-15-2023 Urea nitrogen [Mass/Vol] 30 mg/dL 7- [facility] Thin prep Papanicolaou smear with manual screeningOrdered By: Guilherme Erickson on 02-15-2023 Thin prep Papanicolaou smear with manual screening 24 U/L [facility] Thin prep Papanicolaou smear with manual screening 5 5-15 [facility] Whole blood hemoglobin A1c/t otal hemoglobin ratio (mass fraction)Ordered By: Guilherme Erickson on 02-15-2023 HbA1c (Bld) [Mass fraction] 6.1 % 3.8-5.6 [facility] Comment on above: Normal < 5.7 % Predi abetic 5.7 - 6.4 % Diabetic >or= 6.5 % Please note range changes. Basophil percentageOrdered B y: Dr. Erickson on 10-12-2022 Bilirubin [Mass/Vol] 0.60 mg/dL 0.20-1.[address] [facility] Comment on above: For patients on eltr ombopag therapy, use of Dimension [place] TBIL is not recommended. Chloride [Moles/Vol] 102 mmol/L 98-[address] [facility] Glucose [Mass/Vol] 101 mg/dL 74-106 [facility] Comment on above: Fasting Glucose resu lt from 100 to 125 mg/dL suggests IMPAIRED HOMEOSTASIS per A.D.A. criteria. Potassium [Moles/Vol] 3.7 mmol/L 3.5-5.1 [facility] Protein [Mass/Vol] 8.2 g/dL 6.4-8.2 [facility] Sodium [Moles/Vol] 134 mmol/L 136-145 [facility] [facility] (Bld) [#/Vol] 5.8 10*3/uL 4.4-11.0 [facility] Blood erythrocytes count (nu mber/volume)Ordered By: Dr. Erickson on 10-12-2022 RBC (Bld) [#/Vol] 4.29 10*6/uL 4.6-6.2 [facility] Blood hemoglobin measurement (mass/volume)Ordered By: Dr. Erickson on 10-12-2022 Hemoglobin (Bld) [Mass/Vol] 13.7 g/dL 13.0-16.5 [facility] Blood platelet mean volumeOr dered By: Dr. Erickson on 10-12-2022 Platelet mean volume (Bld) [Entitic vol] 11.1 fL 6.2-12.0 [facility] Determination of erythrocyte mean corpuscular volume (MCV)Ordered By: Dr. Erickson on 10-12-2022 MCV (RBC) [Entitic vol] 97.0 fL 80-94 [facility] Hematocrit Auto (Bld) [Volum e fraction]Ordered By: Dr. Erickson on 10-12-2022 Hematocrit (Bld) [Volume fraction] 41.6 % 40-54 [facility] Laboratory - Chemistry and C hemistry - challengeOrdered By: Dr. Erickson on 10-12-2022 ALP [Catalytic activity/Vol] 60 U/L 45-117 [facility] ALT [Catalytic activity/Vol] 25 U/L 16-61 [facility] CO2 [Moles/Vol] 27.0 mmol/L 21.0-32.0 [facility] Globulin (S) [Mass/Vol] 4.3 g/dL 2.2-4.2 [facility] Urea nitrogen/Creatinine [Mass ratio] 20.8 mg/mg 10-20 [facility] Laboratory - Hematology and Cell countsOrdered By: Dr. Erickson on 10-12-2022 Erythrocyte distribution width (RBC) [Entitic vol] 51.6 fL 35.1-43.9 [facility] Erythrocyte distribution width (RBC) [Ratio] 14.5 % 11.6-14.6 [facility] MCH (RBC) [Entitic mass] 31.9 pg 27.0-32.0 [facility] Auto (RBC) [Mass/Vol]Or dered By: Dr. Erickson on 10-12-2022 MCHC (RBC) [Mass/Vol] 32.9 g/dL 32-36 [facility] No Panel InformationOrdered By: Dr. Erickson on 10-12-2022 Estimated GFR (MDRD) Amer 70 mL/min >60 [facility] Comment on above: GFR Calc Estimated GFR (MDRD) Non-Af Amer 58 mL/min >60 [facility] Comment on above: Non- GFR Calc Prostate Specific Antigen Total 1.54 ng/mL 0.0-4.0 [facility] Comment on above: This test was perfor med using the TPSA assay method for [employer] chemistry system. Values obtained with differentassay methods cannot be used interchangably.When changing PSA assays in the course of monitoring apatient, additional sequential testing should be carriedout to confirm baseline values. Thyroid Stimulating Hormone (TSH) 2.31 uIU/mL 0.358-3.74 [facility] Urine Microalbumin/Creatinin e Ratio 9.9 mg/g CRE <30 [facility] Platelets bldOrdered By: Dr. Erickson on 10-12-2022 Platelets (Bld) [#/Vol] 210 10*3/uL 150-450 [facility] Serum or plasma albumin jessica urement (mass/volume)Ordered By: Dr. Erickson on 10-12-2022 Albumin [Mass/Vol] 3.9 g/dL 3.2-5.0 [facility] Serum or plasma albumin/glob ulin mass ratioOrdered By: Dr. Erickson on 10-12-2022 Albumin/Globulin [Mass ratio] 0.9 {ratio} 0.9-2.4 [facility] Serum or plasma calcium jessica urement (mass/volume)Ordered By: Dr. Erickson on 10-12-2022 Calcium [Mass/Vol] 8.8 mg/dL 8.5-10.1 [facility] Serum or plasma creatinine m easurement (mass/volume)Ordered By: Dr. Erickson on 10-12-2022 Creatinine [Mass/Vol] 1.30 mg/dL 0.70-1.30 [facility] Comment on above: The validity of the calculated GFR & GFRAA in patients over 70 years has not been determined. Clinical correlation is essential. Serum or plasma urea nitroge n measurement (mass/volume)Ordered By: Dr. Erickson on 10-12-2022 Urea nitrogen [Mass/Vol] 27 mg/dL 7-18 [facility] Thin prep Papanicolaou smear with manual screeningOrdered By: Dr. Erickson on 10-12-2022 Thin prep Papanicolaou smear with manual screening 24 U/L 15-37 [facility] Thin prep Papanicolaou smear with manual screening 5 5-15 [facility] Thin prep Papanicolaou smear with manual screening 11.8 mg/L NO RANGE EST. [facility] Urine creatinine measurement (mass/volume)Ordered By: Dr. Erickson on 10-12-2022 Creatinine (U) [Mass/Vol] 119.00 mg/dL NO RANGE EST. [facility] Whole blood hemoglobin A1c/t otal hemoglobin ratio (mass fraction)Ordered By: Dr. Erickson on 10-12-2022 HbA1c (Bld) [Mass fraction] 6.1 % 3.8-5.6 [facility] Comment on above: Normal < 5.7 % Predi abetic 5.7 - 6.4 % Diabetic >or= 6.5 % Please note range changes. No Panel Informationon 04-15 Prostate Specific Antigen Screen 1.43 ng/mL 0.00-4.00 [facility] Work Phone: Comment on above: This test was perfor med using the TPSA assay method [facility]. Values obtained with differentassay methods cannot be used interchangably.When changing PSA assays in the course of monitoring apatient, additional sequential testing should be carriedout to confirm baseline values. Absolute lymphocyte counton 02-04-2022 Lymphocytes Auto (Unsp spec) [#/Vol] 1.32 10*3/uL 0.83-4.51 [facility] Work Phone: Basophil percentageon 2021 Basophils/100 WBC (Bld) 0.3 % 0-1 [facility] Work Phone: Bilirubin [Mass/Vol] 0.60 mg/dL 0.20-1.[address] [facility] Work Phone: Comment on above: For patients on eltr ombopag therapy, use of Dimension [place] TBIL is not recommended. Chloride [Moles/Vol] 103 mmol/L 98-[address] [facility] Work Phone: Eosinophils/100 WBC (Bld) 2.0 % 0-5 [facility] Work Phone: Glucose [Mass/Vol] 97 mg/dL 74-106 [facility] Work Phone: Neutrophils (Bld) [#/Vol] 4.2 10*3/uL 2.0-7.7 [facility] Work Phone: Neutrophils/100 WBC (Bld) 63.1 % 47-70 [facility] Work Phone: Potassium [Moles/Vol] 4.1 mmol/L 3.5-5.1 [facility] Work Phone: Protein [Mass/Vol] 8.8 g/dL 6.4-8.2 [facility] Work Phone: Sodium [Moles/Vol] 139 mmol/L 136-145 [facility] Work Phone: WBC (Bld) [#/Vol] 6.6 10*3/uL 4.4-11.0 [facility] Work Phone: [phone] Blood erythrocytes count (nu mber/volume)on 02-04-2022 RBC (Bld) [#/Vol] 4.14 10*6/uL 4.6-6.2 [facility] Work Phone: Blood hemoglobin measurement (mass/volume)on 02-04-2022 Hemoglobin (Bld) [Mass/Vol] 13.1 g/dL 13.0-16.5 [facility] Work Phone: Blood lymphocytes/100 leukoc yteson 02-04-2022 Lymphocytes/100 WBC (Bld) 19.9 % 19-41 [facility] Work Phone: Blood monocytes/100 leukocyt eson 02-04-2022 Monocytes/100 WBC (Bld) 14.2 % 0-10 [facility] Work Phone: Blood platelet mean volumeon 02-04-2022 Platelet mean volume (Bld) [Entitic vol] 11.3 fL 6.2-12.0 [facility] Work Phone: Determination of erythrocyte mean corpuscular volume (MCV)on 02-04-2022 MCV (RBC) [Entitic vol] 98.8 fL 80-94 [facility] Work Phone: Erythrocyte sedimentation ra cecilia 02-04-2022 ESR (Bld) [Velocity] 38 mm/h 0-[address] [facility] Work Phone: Hematocrit Auto (Bld) [Volum e fraction]on 02-04-2022 Hematocrit (Bld) [Volume fraction] 40.9 % 40-54 [facility] Work Phone: Laboratory - Chemistry and C hemistry - challengeon 02-04-2022 ALP [Catalytic activity/Vol] 59 U/L 45-117 [facility] Work Phone: ALT [Catalytic activity/Vol] 35 U/L 16-61 [facility] Work Phone: CO2 [Moles/Vol] 28.0 mmol/L 21.0-32.0 [facility] Work Phone: Globulin (S) [Mass/Vol] 4.7 g/dL 2.2-4.2 [facility] Work Phone: [phone] Urea nitrogen/Creatinine [Mass ratio] 22.5 mg/mg 10-20 [facility] Work Phone: Laboratory - Hematology and Cell countson 02-04-2022 Erythrocyte distribution width (RBC) [Entitic vol] 53.0 fL 35.1-43.9 [facility] Work Phone: [phone] Erythrocyte distribution width (RBC) [Ratio] 14.6 % 11.6-14.6 [facility] Work Phone: Immature granulocytes/100 WBC (Bld) 0.500 % 0.0-0.9 [facility] Work Phone: Comment on above: IG% - Immature Granu locytes (promyelocytes, myelocytes and metamyelocytes) > 1% indicates that a LEFT SHIFT is Present. MCH (RBC) [Entitic mass] 31.6 pg 27.0-32.0 [facility] Work Phone: Nucleated RBC/100 WBC (Bld) [Ratio] 0 % 0-5 [facility] Work Phone: MCHC Auto (RBC) [Mass/Vol]on 02-04-2022 MCHC (RBC) [Mass/Vol] 32.0 g/dL 32-36 [facility] Work Phone: No Panel Informationon 02-04 Estimated GFR (MDRD) Amer 70 mL/min >60 [facility] Work Phone: Comment on above: GFR Calc Estimated GFR (MDRD) Non-Af Amer 58 mL/min >60 [facility] Work Phone: Comment on above: Non- GFR Calc Platelets bldon 02-04-2022 Platelets (Bld) [#/Vol] 211 10*3/uL 150-450 [facility] Work Phone: Serum or plasma C reactive p rotein measurement (mass/volume)on 02-04-2022 CRP [Mass/Vol] 3.68 mg/L 0.0-3.0 [facility] Work Phone: Comment on above: C-Reactive Protein ( CRP) provides useful information for thediagnosis, therapy and monitoring of inflammatory processesand associated diseases. For the evaluation of Relative Riskfor Cardiovascular Disease, a High Sensitivity CRP (HSCRP)should be ordered. Serum or plasma albumin jessica urement (mass/volume)on 02-04-2022 Albumin [Mass/Vol] 4.1 g/dL 3.2-5.0 [facility] Work Phone: Serum or plasma albumin/glob ulin mass ratioon 02-04-2022 Albumin/Globulin [Mass ratio] 0.9 {ratio} 0.9-2.4 [facility] Work Phone: Serum or plasma calcium jessica urement (mass/volume)on 02-04-2022 Calcium [Mass/Vol] 9.3 mg/dL 8.5-10.1 [facility] Work Phone: Serum or plasma creatinine m easurement (mass/volume)on 02-04-2022 Creatinine [Mass/Vol] 1.29 mg/dL 0.70-1.30 [facility] Work Phone: Comment on above: The validity of the calculated GFR & GFRAA in patients over 70 years has not been determined. Clinical correlation is essential. Serum or plasma urea nitroge n measurement (mass/volume)on 02-04-2022 Urea nitrogen [Mass/Vol] 29 mg/dL 7-18 [facility] Work Phone: Thin prep Papanicolaou smear with manual screeningon 02-04-2022 Thin prep Papanicolaou smear with manual screening 26 U/L 15-37 [facility] Work Phone: Thin prep Papanicolaou smear with manual screening 8 5-15 [facility] Work Phone: Absolute lymphocyte counton 10-26-2021 Lymphocytes Auto (Unsp spec) [#/Vol] 1.57 10*3/uL 0.83-4.51 [facility] Work Phone: Basophil percentageon 2021 Basophils/100 WBC (Bld) 0.3 % 0-1 [facility] Work Phone: Bilirubin [Mass/Vol] 0.50 mg/dL 0.20-1.[address] [facility] Work Phone: Comment on above: For patients on eltr ombopag therapy, use of Dimension [place] TBIL is not recommended. Chloride [Moles/Vol] 101 mmol/L 98-[address] [facility] Work Phone: Eosinophils/100 WBC (Bld) 2.0 % 0-5 [facility] Work Phone: Glucose [Mass/Vol] 122 mg/dL 74-106 [facility] Work Phone: Comment on above: Fasting Glucose resu lt from 100 to 125 mg/dL suggests IMPAIRED HOMEOSTASIS per A.D.A. criteria. Neutrophils (Bld) [#/Vol] 5.4 10*3/uL 2.0-7.7 [facility] Work Phone: Neutrophils/100 WBC (Bld) 69.1 % 47-70 [facility] Work Phone: Potassium [Moles/Vol] 3.4 mmol/L 3.5-5.1 [facility] Work Phone: Protein [Mass/Vol] 8.7 g/dL 6.4-8.2 [facility] Work Phone: Sodium [Moles/Vol] 138 mmol/L 136-145 [facility] Work Phone: WBC (Bld) [#/Vol] 7.9 10*3/uL 4.4-11.0 [facility] Work Phone: Blood erythrocytes count (nu mber/volume)on 10-26-2021 RBC (Bld) [#/Vol] 4.29 10*6/uL 4.6-6.2 [facility] Work Phone: Blood hemoglobin measurement (mass/volume)on 10-26-2021 Hemoglobin (Bld) [Mass/Vol] 13.6 g/dL 13.0-16.5 [facility] Work Phone: Blood lymphocytes/100 leukoc yteson 10-26-2021 Lymphocytes/100 WBC (Bld) 20.0 % 19-41 [facility] Work Phone: Blood monocytes/100 leukocyt eson 10-26-2021 Monocytes/100 WBC (Bld) 8.3 % 0-10 [facility] Work Phone: Blood platelet mean volumeon 10-26-2021 Platelet mean volume (Bld) [Entitic vol] 11.4 fL 6.2-12.0 [facility] Work Phone: Determination of erythrocyte mean corpuscular volume (MCV)on 10-26-2021 MCV (RBC) [Entitic vol] 96.0 fL 80-94 [facility] Work Phone: Erythrocyte sedimentation ra cecilia 10-26-2021 ESR (Bld) [Velocity] 38 mm[facility]h 0-20 [facility]: Hematocrit Auto (Bld) [Volum e fraction]on 10-26-2021 Hematocrit (Bld) [Volume fraction] 41.2 % 40-54 [facility] Work Phone: Laboratory - Chemistry and C hemistry - challengeon 10-26-2021 ALP [Catalytic activity/Vol] 57 U/L 45-117 [facility] Work Phone: [phone] ALT [Catalytic activity/Vol] 32 U/L 16-61 [facility] Work Phone: CO2 [Moles/Vol] 28.0 mmol/L 21.0-32.0 [facility] Work Phone: Globulin (S) [Mass/Vol] 4.8 g/dL 2.2-4.2 [facility] Work Phone: Urea nitrogen/Creatinine [Mass ratio] 21.5 mg/mg 10-20 [facility] Work Phone: Laboratory - Hematology and Cell countson 10-26-2021 Erythrocyte distribution width (RBC) [Entitic vol] 50.4 fL 35.1-43.9 [facility] Work Phone: Erythrocyte distribution width (RBC) [Ratio] 14.3 % 11.6-14.6 [facility] Work Phone: Immature granulocytes/100 WBC (Bld) 0.300 % 0.0-0.9 [facility] Work Phone: Comment on above: IG% - Immature Granu locytes (promyelocytes, myelocytes and metamyelocytes) > 1% indicates that a LEFT SHIFT is Present. MCH (RBC) [Entitic mass] 31.7 pg 27.0-32.0 [facility] Work Phone: Nucleated RBC/100 WBC (Bld) [Ratio] 0 % 0-5 [facility] Work Phone: MCHC Auto (RBC) [Mass/Vol]on 10-26-2021 MCHC (RBC) [Mass/Vol] 33.0 g/dL 32-36 [facility] Work Phone: No Panel Informationon 10-26 Estimated GFR (MDRD) Amer 70 mL/min >60 [facility] Work Phone: Comment on above: GFR Calc Estimated GFR (MDRD) Non-Af Amer 58 mL/min >60 [facility] Work Phone: Comment on above: Non- GFR Calc Hepatitis B Surface Antigen Non-Reactive Nonreactive [facility] Work Phone: Hepatitis C Antibody Non-Reactive Nonreactive [facility] Work Phone: Comment on above: Non Reactive: < 0.8 Equivocal: >/= 0.8 to < 1.0 Reactive: >/= 1.0The CDC recommends that a reactive/equivocal HCV antibody result be followed up by the HCV Nucleic Acid Amplificationtest (751608) Platelets bldon 10-26-2021 Platelets (Bld) [#/Vol] 217 10*3/uL 150-450 [facility] Work Phone: Serum cyclic citrullinated p eptide IgG antibody assay (units/volume)on 10-26-2021 Cyclic citrullinated peptide IgG Qn 7 units 0-19 [facility] Work Phone: Comment on above: Negative <20 Weak po sitive 20 - 39 Moderate positive 40 - 59 Strong positive >59Performed at: [facility] [address] [id number] Director: Mario Richardson MD, Phone: [phone] Serum hepatitis B virus surf dyana antibody IgG detectionon 10-26-2021 HBV surface IgG Ql (S) Reactive [facility] Work Phone: [phone] Comment on above: Non Reactive: Incons istent with immunity less than <10 mIU/mL Reactive: Consistent with immunity greater than or equal to 10 mIU/mL Serum or plasma C reactive p rotein measurement (mass/volume)on 10-26-2021 CRP [Mass/Vol] 3.66 mg/L 0.0-3.0 [facility] Work Phone: Comment on above: C-Reactive Protein ( CRP) provides useful information for thediagnosis, therapy and monitoring of inflammatory processesand associated diseases. For the evaluation of Relative Riskfor Cardiovascular Disease, a High Sensitivity CRP (HSCRP)should be ordered. Serum or plasma albumin jessica urement (mass/volume)on 10-26-2021 Albumin [Mass/Vol] 3.9 g/dL 3.2-5.0 [facility] Work Phone: Serum or plasma albumin/glob ulin mass ratioon 10-26-2021 Albumin/Globulin [Mass ratio] 0.8 {ratio} 0.9-2.4 [facility] Work Phone: Serum or plasma calcium jessica urement (mass/volume)on 10-26-2021 Calcium [Mass/Vol] 8.8 mg/dL 8.5-10.1 [facility] Work Phone: Serum or plasma creatinine m easurement (mass/volume)on 10-26-2021 Creatinine [Mass/Vol] 1.30 mg/dL 0.70-1.30 [facility] Work Phone: Comment on above: The validity of the calculated GFR & GFRAA in patients over 70 years has not been determined. Clinical correlation is essential. Serum or plasma urea nitroge n measurement (mass/volume)on 10-26-2021 Urea nitrogen [Mass/Vol] 28 mg/dL 7-18 [facility] Work Phone: Thin prep Papanicolaou smear with manual screeningon 10-26-2021 Thin prep Papanicolaou smear with manual screening 27 U/L 15-37 [facility] Work Phone: Thin prep Papanicolaou smear with manual screening 9 5-15 [facility] Work Phone: Absolute lymphocyte counton 10-01-2021 Lymphocytes Auto (Unsp spec) [#/Vol] 1.33 10*3/uL 0.83-4.51 [facility] Work Phone: Basophil percentageon 2021 [facility]ophil percentage > [facility].0 [facility]: Basophils/100 WBC (Bld) 0.1 % 0-1 [facility] Work Phone: Bilirubin [Mass/Vol] 0.60 mg/dL 0.20-1.[address] [facility] Work Phone: Comment on above: For patients on eltr ombopag therapy, use of Dimension [place] TBIL is not recommended. Chloride [Moles/Vol] 102 mmol/L 98-[address] [facility] Work Phone: Eosinophils/100 WBC (Bld) 2.5 % 0-5 [facility] Work Phone: Glucose [Mass/Vol] 93 mg/dL 74-106 [facility] Work Phone: Neutrophils (Bld) [#/Vol] 4.2 10*3/uL 2.0-7.7 [facility] Work Phone: Neutrophils/100 WBC (Bld) 62.5 % 47-70 [facility] Work Phone: Potassium [Moles/Vol] 3.8 mmol/L 3.5-5.1 [facility] Work Phone: Protein [Mass/Vol] 8.7 g/dL 6.4-8.2 [facility] Work Phone: Sodium [Moles/Vol] 135 mmol/L 136-145 [facility] Work Phone: WBC (Bld) [#/Vol] 6.8 10*3/uL 4.4-11.0 [facility] Work Phone: Blood erythrocytes count (nu mber/volume)on 10-01-2021 RBC (Bld) [#/Vol] 4.24 10*6/uL 4.6-6.2 [facility] Work Phone: Blood hemoglobin measurement (mass/volume)on 10-01-2021 Hemoglobin (Bld) [Mass/Vol] 13.2 g/dL 13.0-16.5 [facility] Work Phone: Blood lymphocytes/100 leukoc yteson 10-01-2021 Lymphocytes/100 WBC (Bld) 19.7 % 19-41 [facility] Work Phone: Blood monocytes/100 leukocyt eson 10-01-2021 Monocytes/100 WBC (Bld) 14.9 % 0-10 [facility] Work Phone: Blood platelet mean volumeon 10-01-2021 Platelet mean volume (Bld) [Entitic vol] 11.2 fL 6.2-12.0 [facility] Work Phone: Determination of erythrocyte mean corpuscular volume (MCV)on 10-01-2021 MCV (RBC) [Entitic vol] 96.2 fL 80-94 [facility] Work Phone: Hematocrit Auto (Bld) [Volum e fraction]on 10-01-2021 Hematocrit (Bld) [Volume fraction] 40.8 % 40-54 [facility] Work Phone: Laboratory - Chemistry and C hemistry - challengeon 10-01-2021 ALP [Catalytic activity/Vol] 54 U/L 45-117 [facility] Work Phone: ALT [Catalytic activity/Vol] 40 U/L 16-61 [facility] Work Phone: CO2 [Moles/Vol] 28.0 mmol/L 21.0-32.0 [facility] Work Phone: Globulin (S) [Mass/Vol] 4.7 g/dL 2.2-4.2 [facility] Work Phone: Urea nitrogen/Creatinine [Mass ratio] 26.2 mg/mg 10-20 [facility] Work Phone: Laboratory - Hematology and Cell countson 10-01-2021 Erythrocyte distribution width (RBC) [Entitic vol] 50.1 fL 35.1-43.9 [facility] Work Phone: [phone] Erythrocyte distribution width (RBC) [Ratio] 14.3 % 11.6-14.6 [facility] Work Phone: Immature granulocytes/100 WBC (Bld) 0.300 % 0.0-0.9 [facility] Work Phone: Comment on above: IG% - Immature Granu locytes (promyelocytes, myelocytes and metamyelocytes) > 1% indicates that a LEFT SHIFT is Present. MCH (RBC) [Entitic mass] 31.1 pg 27.0-32.0 [facility] Work Phone: Nucleated RBC/100 WBC (Bld) [Ratio] 0 % 0-5 [facility] Work Phone: MCHC Auto (RBC) [Mass/Vol]on 10-01-2021 MCHC (RBC) [Mass/Vol] 32.4 g/dL 32-36 [facility] Work Phone: No Panel Informationon 10-01 Centromere B Antibody <0.2 AI [facility] Work Phone: Estimated GFR (MDRD) Amer 70 mL/min >60 [facility] Work Phone: Comment on above: GFR Calc Estimated GFR (MDRD) Non-Af Amer 58 mL/min >60 [facility] Work Phone: Comment on above: Non- GFR Calc ZANJERO Antibody 0.3 AI [facility] Work Phone: Platelets bldon 10-01-2021 Platelets (Bld) [#/Vol] 219 10*3/uL 150-450 [facility] Work Phone: Serum DNA double strand anti body assay (units/volume)on 06-02-2022 DNA double strand Ab Qn (S) 6 [IU]/mL [facility] Work Phone: Comment on above: Negative <5 Equivoca l 5 - 9 Positive >9 Serum Carina-1 antibody assay (u nits/volume)on 10-01-2021 Carina-1 extractable nuclear Ab Qn (S) <0.2 [facility] Work Phone: Serum Scl-70 extractable nuc lear antibody assay (units/volume)on 10-01-2021 SCL-70 extractable nuclear Ab Qn (S) <0.2 [facility] Work Phone: Serum Erickson extractable nucl ear antibody detectionon 10-01-2021 Erickson extractable nuclear Ab Ql (S) 0.4 [facility] Work Phone: Serum or plasma albumin jessica urement (mass/volume)on 10-01-2021 Albumin [Mass/Vol] 4.0 g/dL 3.2-5.0 [facility] Work Phone: Serum or plasma albumin/glob ulin mass ratioon 10-01-2021 Albumin/Globulin [Mass ratio] 0.9 {ratio} 0.9-2.4 [facility] Work Phone: Serum or plasma calcium jessica urement (mass/volume)on 10-01-2021 Calcium [Mass/Vol] 8.9 mg/dL 8.5-10.1 [facility] Work Phone: Serum or plasma creatinine m easurement (mass/volume)on 10-01-2021 Creatinine [Mass/Vol] 1.30 mg/dL 0.70-1.30 [facility] Work Phone: Comment on above: The validity of the calculated GFR & GFRAA in patients over 70 years has not been determined. Clinical correlation is essential. Serum or plasma urea nitroge n measurement (mass/volume)on 10-01-2021 Urea nitrogen [Mass/Vol] 34 mg/dL 7-18 [facility] Work Phone: Serum rheumatoid factor dete ctionon 10-01-2021 Rheumatoid factor Ql (S) 114.0 IU/mL <15 [facility] Work Phone: Thin prep Papanicolaou smear with manual screeningon 10-01-2021 Thin prep Papanicolaou smear with manual screening 28 U/L 15-37 [facility] Work Phone: Thin prep Papanicolaou smear with manual screening 5 5-15 [facility] Work Phone: Basophil percentageon 2021 Creatinine [Mass/Vol] 1.1 mg/dL 0.70-1.30 [facility] Work Phone: No Panel Informationon 09-24 Bedside Estimated GFR (eGFR) > 60.0000 mL/min >60 [facility] Work Phone: Basophil percentageon 2021 Basophil percentage > 8.0 [facility] Work Phone: No Panel Informationon 08-24 Centromere B Antibody <0.2 [facility] Work Phone: ZANJERO Antibody 0.4 [facility] Work Phone: Serum DNA double strand anti body assay (units/volume)on 08-24-2021 DNA double strand Ab Qn (S) 5 [IU]/mL [facility] Work Phone: Comment on above: Negative <5 Equivoca l 5 - 9 Positive >9 Serum Carina-1 antibody assay (u nits/volume)on 08-24-2021 Carina-1 extractable nuclear Ab Qn (S) <0.2 [facility] Work Phone: Serum Scl-70 extractable nuc lear antibody assay (units/volume)on 08-24-2021 SCL-70 extractable nuclear Ab Qn (S) <0.2 [facility] Work Phone: Serum Erickson extractable nucl ear antibody detectionon 08-24-2021 Erickson extractable nuclear Ab Ql (S) 0.4 [facility] Work Phone: 24 hour urine alpha 2 globul in/total protein ratio by electrophoresis (mass fraction)on 08-11-2021 Alpha 2 globulin Elph (24H U) [Mass fraction] 11.9 % [facility] Work Phone: 24 hour urine beta globulin/ total protein ratio by electrophoresis (mass fraction)on 08-11-2021 Beta globulin Elph (24H U) [Mass fraction] 20.2 % [facility] Work Phone: 24 hour urine gamma globulin /total protein ratio by electrophoresis (mass fraction)on 08-11-2021 Gamma globulin Elph (24H U) [Mass fraction] 28.5 % [facility] Work Phone: Absolute lymphocyte counton 08-11-2021 Lymphocytes Auto (Unsp spec) [#/Vol] 1.30 10*3/uL 0.83-4.51 [facility] Work Phone: Alternaria alternata IgE ser umon 08-11-2021 A. alternata IgE Qn (S) <0.10 kU/L Class 0 [facility] Work Phone: Basophil percentageon 2021 Basophils/100 WBC (Bld) 0.3 % 0-1 [facility] Work Phone: Bilirubin [Mass/Vol] 0.50 mg/dL 0.20-1.[address] [facility] Work Phone: Comment on above: For patients on eltr ombopag therapy, use of Dimension [place] TBIL is not recommended. Chloride [Moles/Vol] 102 mmol/L 98-[address] [facility] Work Phone: Eosinophils/100 WBC (Bld) 2.0 % 0-5 [facility] Work Phone: Glucose [Mass/Vol] 102 mg/dL 74-106 [facility] Work Phone: Comment on above: Fasting Glucose resu lt from 100 to 125 mg/dL suggests IMPAIRED HOMEOSTASIS per A.D.A. criteria. Neutrophils (Bld) [#/Vol] 4.8 10*3/uL 2.0-7.7 [facility] Work Phone: Neutrophils/100 WBC (Bld) 68.2 % 47-70 [facility] Work Phone: Potassium [Moles/Vol] 3.7 mmol/L 3.5-5.1 [facility] Work [facility]: Protein [Mass/Vol] 8.9 g/dL 6.4-8.2 [facility] Work Phone: Sodium [Moles/Vol] 136 mmol/L 136-145 [facility] Work Phone: WBC (Bld) [#/Vol] 7.0 10*3/uL 4.4-11.0 [facility] Work Phone: Blood erythrocytes count (nu mber/volume)on 08-11-2021 RBC (Bld) [#/Vol] 4.30 10*6/uL 4.6-6.2 [facility]: Blood hemoglobin measurement (mass/volume)on 08-11-2021 Hemoglobin (Bld) [Mass/Vol] 13.6 g/dL 13.0-16.5 [facility] Work Phone: Blood lymphocytes/100 leukoc yteson 08-11-2021 Lymphocytes/100 WBC (Bld) 18.7 % 19-41 [facility] Work Phone: Blood monocytes/100 leukocyt eson 08-11-2021 Monocytes/100 WBC (Bld) 10.5 % 0-10 [facility] Work Phone: Blood platelet mean volumeon 08-11-2021 Platelet mean volume (Bld) [Entitic vol] 11.0 fL 6.2-12.0 [facility] Work Phone: Determination of erythrocyte mean corpuscular volume (MCV)on 08-11-2021 MCV (RBC) [Entitic vol] 95.6 fL 80-94 [facility] Work Phone: Hematocrit Auto (Bld) [Volum e fraction]on 08-11-2021 Hematocrit (Bld) [Volume fraction] 41.1 % 40-54 [facility] Work Phone: Laboratory - Chemistry and C hemistry - challengeon 08-11-2021 ALP [Catalytic activity/Vol] 55 U/L 45-117 [facility] Work Phone: ALT [Catalytic activity/Vol] 35 U/L 16-61 [facility] Work Phone: CO2 [Moles/Vol] 27.0 mmol/L 21.0-32.0 [facility] Work Phone: Globulin (S) [Mass/Vol] 4.8 g/dL 2.2-4.2 [facility] Work Phone: Urea nitrogen/Creatinine [Mass ratio] 26.7 mg/mg 10-20 [facility] Work Phone: Laboratory - Hematology and Cell countson 08-11-2021 Erythrocyte distribution width (RBC) [Entitic vol] 47.3 fL 35.1-43.9 [facility] Work Phone: Erythrocyte distribution width (RBC) [Ratio] 13.3 % 11.6-14.6 [facility] Work Phone: Immature granulocytes/100 WBC (Bld) 0.300 % 0.0-0.9 [facility] Work Phone: Comment on above: IG% - Immature Granu locytes (promyelocytes, myelocytes and metamyelocytes) > 1% indicates that a LEFT SHIFT is Present. MCH (RBC) [Entitic mass] 31.6 pg 27.0-32.0 [facility] Work Phone: Nucleated RBC/100 WBC (Bld) [Ratio] 0 % 0-5 [facility] Work Phone: MCHC Auto (RBC) [Mass/Vol]on 08-11-2021 MCHC (RBC) [Mass/Vol] 33.1 g/dL 32-36 [facility] Work Phone: No Panel Informationon 08-11 Addendum Document Comment [facility] Work Phone: Comment on above: The SPE pattern refl ects a polyclonal increase in gammaglobulin. Hypergammaglobulinemia is found in a wide varietyof infectious, non-infectious, and autoimmune diseasestates. Evidence of monoclonal protein is not apparent. Jryrk-7-Hifekexqy 0.2 g/dL [facility] Work Phone: Viczv-6-Yivegkdva 1.0 g/dL [facility] Work Phone: Anti-Nuclear Antibody Screen Positive Negative [facility] Work Phone: Cat Hair Allergen <0.10 kU/L Class 0 [facility] Work Phone: Common Ragweed (Short) Allergen <0.10 kU/L Class 0 [facility] Work Phone: Comment on above: RAST ZONE 5 PER ORDE R Estimated GFR (MDRD) Amer 69 mL/min >60 [facility] Work Phone: Comment on above: GFR Calc Estimated GFR (MDRD) Non-Af Amer 57 mL/min >60 [facility] Work Phone: Comment on above: Non- GFR Calc Gamma Globulins 2.2 g/dL [facility] Work Phone: Immunoglobulin E 58 IU/mL [facility] Work Phone: Maple ([address]) Allergen IgE Ab TNP [facility] Work Phone: Comment on above: Test not performedTe st not performed. Insufficient specimen to perform orcomplete analysis. Mouse Urine Allergen IgE Antibody <0.10 kU/L Class 0 [facility] Work Phone: RAST Comment Comment [facility] Work Phone: Comment on above: Levels of Specific I gE Class Description of Class ----- < 0.10 0 Negative 0.10 - 0.31 0/I Equivocal/Low 0.32 - 0.55 I Low 0.56 - 1.40 II Moderate 1.41 - 3.90 III High 3.91 - 19.00 IV Very High 19.01 - 100.00 V Very High >100.00 Very High [place] Tree Allergen [facility] Work Phone: Comment on above: Test not performedTe st not performed. Insufficient specimen to perform orcomplete analysis. Platelets bldon 08-11-2021 Platelets (Bld) [#/Vol] 245 10*3/uL 150-450 [facility] Work Phone: Protein Fractions Elph [Inte rp]on 08-11-2021 Protein Fractions [Interp] Comment [facility] Work Phone: Comment on above: Protein electrophore sis scan will follow via computer,mail, or document examiner delivery. Rough pigweed specific IgE a ntibody assayon 08-11-2021 Rough Pigweed IgE Qn (S) [facility] Work Phone: Comment on above: Test not performedTe st not performed. Insufficient specimen to perform orcomplete analysis. Serum Congolese sycamore IgE antibody assay (units/volume)on 08-11-2021 Congolese Bloxom IgE Qn (S) [facility] Work Phone: Comment on above: Test not performedTe st not performed. Insufficient specimen to perform orcomplete analysis. Serum Aspergillus fumigatus IgE antibody assay (units/volume)on 08-11-2021 A. fumigatus IgE Qn (S) <0.10 kU/L Class 0 [facility] Work Phone: Serum Bermuda grass IgE anti body assay (units/volume)on 08-11-2021 Bermuda grass IgE Qn (S) <0.10 kU/L Class 0 [facility] Work Phone: Serum Cladosporium herbarum IgE antibody assay (units/volume)on 08-11-2021 C. herbarum IgE Qn (S) <0.10 kU/L Class 0 [facility] Work Phone: Serum Dermatophagoides farin ae specific IgE antibody assay (units/volume)on 08-11-2021 Congolese house dust mite IgE Qn (S) <0.10 kU/L Class 0 [facility] Work Phone: Comment on above: RAST ZONE 5 PER ORDE R Serum house dust mi te IgE antibody assay (units/volume)on 08-11-2021 house dust mite IgE Qn (S) <0.10 kU/L Class 0 [facility] Work Phone: Serum Penicillium notatum Ig E antibody assay (units/volume)on 08-11-2021 P. notatum IgE Qn (S) [facility] Work Phone: Comment on above: Test not performedTe st not performed. Insufficient specimen to perform orcomplete analysis. Serum Periplaneta americana IgE antibody assay (units/volume)on 08-11-2021 Congolese Cockroach IgE Qn (S) <0.10 kU/L Class 0 [facility] Work Phone: Comment on above: RAST ZONE 5 PER ORDE R Serum North Korean thistle specif ic IgE antibody assayon 08-11-2021 Saltwort IgE Qn (S) [facility] Work Phone: Comment on above: Test not performedTe st not performed. Insufficient specimen to perform orcomplete analysis. Serum albumin to globulin ra shawn by protein electrophoresison 08-11-2021 Albumin/Globulin Elph [Mass ratio] 0.9 [facility] Work Phone: Serum birch specific IgE ant ibody assayon 08-11-2021 Silver Birch IgE Qn (S) [facility] Work Phone: Comment on above: Test not performedTe st not performed. Insufficient specimen to perform orcomplete analysis. Serum black walnut IgE antib fatemeh assay (units/volume)on 08-11-2021 Black Cascadia IgE Qn (S) [facility] Work Phone: Comment on above: Test not performedTe st not performed. Insufficient specimen to perform orcomplete analysis. Serum cottonwood IgE antibod y assay (units/volume)on 08-11-2021 Shoshone [facility]n (S) [facility]: Comment on above: Test not performedTe st not performed. Insufficient specimen to perform orcomplete analysis. Serum dog epithelium IgE ant ibody assay (units/volume)on 08-11-2021 Dog epithelium IgE Qn (S) <0.10 kU/L Class 0 [facility] Work Phone: Comment on above: RAST ZONE 5 PER ORDE R Serum globulin measurement ( mass/volume)on 08-11-2021 Globulin (S) [Mass/Vol] 4.6 g/dL [facility] Work Phone: Serum mountain cedar specifi c IgE antibody assayon 08-11-2021 Mountain Juniper [facility] Qn (S) [facility]: Comment on above: Test not performedTe st not performed. Insufficient specimen to perform orcomplete analysis. Serum or plasma C reactive p rotein measurement (mass/volume)on 08-11-2021 CRP [Mass/Vol] 5.61 mg/L 0.0-3.0 [facility] Work Phone: Comment on above: C-Reactive Protein ( CRP) provides useful information for thediagnosis, therapy and monitoring of inflammatory processesand associated diseases. For the evaluation of Relative Riskfor Cardiovascular Disease, a High Sensitivity CRP (HSCRP)should be ordered. Serum or plasma albumin jessica urement (mass/volume)on 08-11-2021 Albumin [Mass/Vol] 4.1 g/dL [facility] Work Phone: Serum or plasma albumin/glob ulin mass ratioon 08-11-2021 Albumin/Globulin [Mass ratio] 0.9 {ratio} 0.9-2.4 [facility] Work Phone: Serum or plasma beta globuli n measurement by electrophoresis (mass/volume)on 08-11-2021 Beta globulin Elph [Mass/Vol] 1.2 g/dL [facility] Work Phone: Serum or plasma calcium jessica urement (mass/volume)on 08-11-2021 Calcium [Mass/Vol] 8.6 mg/dL 8.5-10.1 [facility] Work Phone: Serum or plasma creatinine m easurement (mass/volume)on 08-11-2021 Creatinine [Mass/Vol] 1.31 mg/dL 0.70-1.30 [facility] Work Phone: Comment on above: The validity of the calculated GFR & GFRAA in patients over 70 years has not been determined. Clinical correlation is essential. Serum or plasma urea nitroge n measurement (mass/volume)on 08-11-2021 Urea nitrogen [Mass/Vol] 35 mg/dL 7-18 [facility] Work Phone: Serum pecan or hickory nut I gE antibody assay (units/volume)on 08-11-2021 Pecan or [place] Nut IgE Qn (S) [facility] Work [facility]: Comment on above: Test not performedTe st not performed. Insufficient specimen to perform orcomplete analysis. Serum rheumatoid factor dete ctionon 08-11-2021 Rheumatoid factor Ql (S) 138.0 IU/mL <15 [facility] Work Phone: Serum sheep sorrel IgE antib fatemeh assay (units/volume)on 08-11-2021 Sheep Java IgE Qn (S) TNP [facility] Work Phone: Comment on above: Test not performedTe st not performed. Insufficient specimen to perform orcomplete analysis. Serum francisco IgE antibody a ssay (units/volume)on 08-11-2021 Francisco IgE Qn (S) <0.10 kU/L Class 0 [facility] Work Phone: Serum white ladarius IgE antibody assay (units/volume)on 08-11-2021 White Ladarius IgE Qn (S) TNP [facility] Work Phone: Comment on above: Test not performedTe st not performed. Insufficient specimen to perform orcomplete analysis. Serum white elm IgE antibody assay (units/volume)on 08-11-2021 White Elm IgE Qn (S) TNP [facility] Work Phone: Comment on above: Test not performedTe st not performed. Insufficient specimen to perform orcomplete analysis. Serum white mulberry IgE ant ibody assay (units/volume)on 08-11-2021 White mulberry IgE Qn (S) TNP [facility] Work Phone: Comment on above: Test not performedTe st not performed. Insufficient specimen to perform orcomplete analysis. Thin prep Papanicolaou smear with manual screeningon 08-11-2021 Thin prep Papanicolaou smear with manual screening 25 U/L 15-37 [facility] Work Phone: Thin prep Papanicolaou smear with manual screening 7 5-15 [facility] Work Phone: Thin prep Papanicolaou smear with manual screening See comment [facility] Work Phone: Comment on above: NOT OBSERVED Total protein bloodon 2021 Protein [Mass/Vol] 8.7 g/dL [facility] Work Phone: Urine albumin/total protein mass ratio by electrophoresison 08-11-2021 Albumin Elph (U) [Mass fraction] 37.5 % [facility] Work Phone: Urine alpha 1 globulin/total protein ratio by electrophoresis (mass fraction)on 08-11-2021 Alpha 1 globulin Elph (U) [Mass fraction] 1.9 % [facility] Work Phone: Urine monoclonal protein/tot al protein mass ratio by electrophoresison 08-11-2021 Protein.monoclonal Elph (U) [Mass fraction] See comment [facility] Work Phone: Comment on above: NOT OBSERVED Urine protein measurement (m ass/volume)on 08-11-2021 Protein (U) [Mass/Vol] 5.7 mg/dL Not Estab. [facility] Work Phone: Basophil percentageon 2021 Bilirubin [Mass/Vol] 0.60 mg/dL 0.20-1.[address] [facility] Work Phone: Comment on above: For patients on eltr ombopag therapy, use of Dimension [place] TBIL is not recommended. Chloride [Moles/Vol] 105 mmol/L 98-[address] [facility] Work Phone: Glucose [Mass/Vol] 94 mg/dL 74-106 [facility] Work Phone: Potassium [Moles/Vol] 3.8 mmol/L 3.5-5.1 [facility] Work Phone: Protein [Mass/Vol] 9.0 g/dL 6.4-8.2 [facility] Work Phone: Sodium [Moles/Vol] 137 mmol/L 136-145 [facility] Work Phone: Laboratory - Chemistry and C hemistry - challengeon 05-25-2021 ALP [Catalytic activity/Vol] 57 U/L 45-117 [facility] Work Phone: ALT [Catalytic activity/Vol] 35 U/L 16-61 [facility] Work Phone: CO2 [Moles/Vol] 24.0 mmol/L 21.0-32.0 [facility] Work Phone: Free T4 [Mass/Vol] 0.85 ng/dL 0.76-1.46 [facility] Work Phone: Globulin (S) [Mass/Vol] 5.0 g/dL 2.2-4.2 [facility] Work Phone: Urea nitrogen/Creatinine [Mass ratio] 23.1 mg/mg 10-20 [facility] Work Phone: No Panel Informationon 05-25 Estimated GFR (MDRD) Amer 70 mL/min >60 [facility] Work Phone: Comment on above: GFR Calc Estimated GFR (MDRD) Non-Af Amer 58 mL/min >60 [facility] Work Phone: [phone] Comment on above: Non- GFR Calc Thyroid Stimulating Hormone (TSH) 3.64 uIU/mL 0.358-3.74 [facility] Work Phone: Serum or plasma albumin jessica urement (mass/volume)on 05-25-2021 Albumin [Mass/Vol] 4.0 g/dL 3.2-5.0 [facility] Work Phone: Serum or plasma albumin/glob ulin mass ratioon 05-25-2021 Albumin/Globulin [Mass ratio] 0.8 {ratio} 0.9-2.4 [facility] Work Phone: Serum or plasma calcium jessica urement (mass/volume)on 05-25-2021 Calcium [Mass/Vol] 9.1 mg/dL 8.5-10.1 [facility] Work Phone: Serum or plasma creatinine m easurement (mass/volume)on 05-25-2021 Creatinine [Mass/Vol] 1.30 mg/dL 0.70-1.30 [facility] Work Phone: Comment on above: The validity of the calculated GFR & GFRAA in patients over 70 years has not been determined. Clinical correlation is essential. Serum or plasma urea nitroge n measurement (mass/volume)on 05-25-2021 Urea nitrogen [Mass/Vol] 30 mg/dL 7-18 [facility] Work Phone: Thin prep Papanicolaou smear with manual screeningon 05-25-2021 Thin prep Papanicolaou smear with manual screening 27 U/L 15-37 [facility] Work Phone: Thin prep Papanicolaou smear with manual screening 8 5-15 [facility] Work Phone: Provider Note - ED v2on [...] SIGNS: T PRBP SpO2O2(LPM) %FiO2 Method 01-Feb-2020 14:49:[id number] MEDICAL DECISION MAKING/ED COURSE MDM/ED COURSE: [...] better. Patient denies the use of any myhc-nil-fjrpbqm medications or home remedies prior to arrival [...] normal strength, no tenderness, no swelling. Integumentary: [place], warm, dry, and Intact. Neurologic: Alert, Oriented, [...] ill patient: no Electronic Signatures: Ketan Holliday (ADVERTISING ACCOUNT MANAGER-DOBIE WORKER) (Signed 01-Feb-2020 15:02) Authored: HPI, PMH, PE, Results/Vital Signs, MDM/ED Course, Clinical Impression, Attestation, Chart Review, Scores Last Updated: 01-Feb-2020 15:02 by Ketan Holliday (ADVERTISING ACCOUNT MANAGER-DOBIE WORKER) [facility] XR Chest 2 Viewson XR Chest 2 Views Exam Date/Time:2017 08:44 EDTReason for Exam:Shortness of breath (SOB)ReportSTUDY:XR Chest 2 Views; 03/04/2018 8:44 amINDICATION:Shortness of breath (SOB).COMPARISON:None.[facility][id number] 24ORDERING CLINICIAN:Marin JohnsonFINDINGS:CARDI OMEDIASTINAL SILHOUETTE:Cardiomediast inal silhouette is normal in size and configuration.LUNGS:Lung s are clear.No pleural effusion or pneumothorax.ABDOMEN:No remarkable upper abdominal findings.BONES:There is osteopenia with mild multilevel anterior endplate spurring of the spine.IMPRESSION:1. No evidence of acute cardiopulmonary process. FINAL REPORT Dictated: 03/04/2018 9:07 am Cyndi Vance MDigned (Electronic Signature): 03/04/2018 9:07 amSigned by: Tarun Vance MD Technologist: CHI[facility] Office Visit: positive loc reyes 03-30-2017 Documentation of current medications (procedure) Done Invalid Interpretation Code [facility] Work Phone: Fall risk assessment No Invalid Interpretation Code [facility] Work Phone: Tobacco smoking status NHIS Never Invalid Interpretation Code [facility] Work Phone: Tobacco use CPHS Never smoker Invalid Interpretation Code [facility] Work Phone: Vital Signs Date Time Vital Sign Value Performing Clinician Facility 11-27-2024 20:00-0400 Body temperature 99 [degF] Dr. Guilherme Erickson MD Work Phone: [facility] 11-27-2024 20:00-0400 Diastolic blood pressure 71 mm[Hg] Dr. Guilherme Erickson MD Work Phone: [phone] [address] 11-27-2024 20:00-0400 Heart rate 82 /min Dr. Guilherme Erickson MD Work Phone: 6([phone] [place] [address] 11-27-2024 20:00-0400 Respiratory rate 20 /min Dr. Guilherme Erickson MD Work Phone: [phone] [address] 11-27-2024 20:00-0400 SaO2% (BldA) [Mass fraction] 95 % Dr. Guilherme Erickson MD Work Phone: [phone] [address] 11-27-2024 20:00-0400 Systolic blood pressure 131 mm[Hg] Dr. Guilherme Erickson MD Work Phone: [facility] 11-27-2024 18:58-0400 Body height 162.[address] Guilherme Erickson MD Work Phone: [facility] 11-27-2024 18:58-0400 Body mass index (BMI) [Ratio] 33.5 kg/m2 Dr. Guilherme Erickson MD Work Phone: [facility] 11-27-2024 18:58-0400 Body weight 88.[address] Guilherme Erickson MD Work Phone: [facility] 11-11-2024 09:08-0400 Body height 162.[address] Guilherme Erickson MD Work Phone: [phone] [place] [address] 11-11-2024 09:08-0400 Body mass index (BMI) [Ratio] 34.2 kg/m2 Dr. Guilherme Erickson MD Work Phone: [facility] 11-11-2024 09:08-0400 Body temperature 98.1 [degF] Dr. Guilherme Erickson MD Work Phone: [facility] 11-11-2024 09:08-0400 Body weight 90.[address] Guilherme Erickson MD Work Phone: [facility] 11-11-2024 09:08-0400 Diastolic blood pressure 68 mm[Hg] Dr. Guilherme Erickson MD Work Phone: [facility] 11-11-2024 09:08-0400 Heart rate 84 /min Dr. Guilherme Erickson MD Work Phone: [facility] 11-11-2024 09:08-0400 Respiratory rate 15 /min Dr. Guilherme Erickson MD Work Phone: [facility] 11-11-2024 09:08-0400 SaO2% (BldA) [Mass fraction] 94 % Dr. Guilherme Erickson MD Work Phone: [facility] 11-11-2024 09:08-0400 Systolic blood pressure 142 mm[Hg] Dr. Guilherme Erickson MD Work Phone: [facility] 08-27-2021 12:32-0400 Body height 162.[address] Guilherme Erickson Work Phone: [facility] Work Phone: 08-27-2021 12:32-0400 Body mass index (BMI) [Ratio] 35.6 kg/m2 Dr. Guilherme Erickson Work Phone: [facility] Work Phone: 08-27-2021 12:32-0400 Body temperature 97.9 [degF] Dr. Guilherme Erickson Work Phone: [facility] Work Phone: 08-27-2021 12:32-0400 Body weight 94.[address] Guilherme Erickson Work Phone: [facility] Work Phone: 08-27-2021 12:32-0400 Diastolic blood pressure 76 mm[Hg] Dr. Guilherme Erickson Work Phone: [facility] Work Phone: 08-27-2021 12:32-0400 Heart rate 73 /min Dr. Guilherme Erickson Work Phone: [facility] Work Phone: 08-27-2021 12:32-0400 Respiratory rate 16 /min Dr. Guilherme Erickson Work Phone: [facility] Work Phone: 08-27-2021 12:32-0400 SaO2% (BldA) [Mass fraction] 93 % Dr. Guilherme Erickson Work Phone: [facility] Work Phone: 08-27-2021 12:32-0400 Systolic blood pressure 165 mm[Hg] Dr. Guilherme Erickson Work Phone: [facility] Work Phone: 03-30-2017 10:29-0500 BMI (Body Mass Index) 36.2 kg/m2 Louis Espinoza MD [facility] Work Phone: 03-30-2017 10:29-0500 Body Temperature 98 [degF] Louis Espinoza MD [facility] Work Phone: 03-30-2017 10:29-0500 BP Diastolic 80 mm[Hg] Louis Espinoza MD [facility] Work Phone: 03-30-2017 10:29-0500 BP Systolic 187 mm[Hg] Louis Espinoza MD [facility] Work Phone: 03-30-2017 10:29-0500 Height 162.56 cm Louis Espinoza MD [facility] Work Phone: 03-30-2017 10:29-0500 Pulse (Heart Rate) 64 /min Louis Espinoza MD [facility] Work Phone: 03-30-2017 10:29-0500 Respiratory Rate 20 /min Louis Espinoza MD [facility] Work Phone: 03-30-2017 10:29-0500 Weight 95.66 kg Louis Espinoza MD [facility] Work Phone: Encounters Encounter Date Encounter Type Care Provider Facility Start: 11-27-2024 Non-patient / Non-visit Dr. Ketan Parry MD -[facility] Start: 11-27-2024 Evaluation and management of inpatient Dr. Ketan Parry MD -[facility] Work Phone: Start: 11-11-2024 End: 11-11-2024 Patient encounter procedure Tabatha Sanchez NM -[facility] Work Phone: Start: 11-11-2024 End: 11-11-[address] Guilherme Erickson MD Work Phone: -[facility] Start: 11-08-2024 End: 11-08-[address] Guilherme Erickson MD Work Phone: -Laboratory [facility] Start: 11-08-2024 End: 11-08-[address] Guilherme Erickson MD -[facility] Start: 11-08-2024 End: 11-08-2024 ambulatory Guilherme Erickson Facility:[facility] Start: 05-21-2024 End: 05-21-2024 ambulatory [facility] Facility:[facility] Start: 02-15-2023 End: 02-15-2023 ambulatory [facility] Work Phone: Start: 02-15-2023 End: 02-15-2023 Patient encounter procedure [facility] Start: 10-12-2022 End: 10-12-2022 ambulatory [facility] Work Phone: Start: 10-12-2022 End: 10-12-2022 Patient encounter procedure [facility] Start: 04-15-2022 End: 04-15-2022 ambulatory [facility] Work Phone: Start: 04-15-2022 End: 04-15-2022 Patient encounter procedure [facility] Start: 02-04-2022 End: 02-04-2022 ambulatory [facility] Work Phone: Start: 02-04-2022 End: 02-04-2022 Patient encounter procedure [facility] Start: 10-26-2021 End: 10-26-2021 Patient encounter procedure [facility] Start: 10-01-2021 End: 10-01-[address] Guilherme Erickson Work Phone: [facility] Start: 09-24-2021 End: 09-24-[address] Guilherme Erickson Work Phone: [facility] Start: 09-08-2021 End: 09-08-[address] Guilherme Erickson Work Phone: [facility] Start: 08-27-2021 End: 08-27-[address] [facility] Start: 08-25-2021 Non-patient / Non-visit Dr. Bimal Erickson Work Phone: [facility] Start: 08-25-2021 End: 08-25-[address] Guilherme Erickson Work Phone: [facility] Start: 08-24-2021 End: 08-24-[address] Guilherme Erickson Work Phone: [facility] Start: 08-20-2021 End: 08-20-2021 Patient encounter procedure [facility] Start: 08-11-2021 End: 08-11-2021 Patient encounter procedure [facility] Start: 05-25-2021 End: 05-25-2021 [facility] Start: 07-15-2020 End: 07-15-2020 Patient encounter procedure RAFAELA ERIC [facility] Start: 03-04-2018 End: 03-05-2018 Patient encounter procedure Marin Pimentel [facility] Facility:[facility] Start: 03-04-2018 Patient encounter procedure Facility:[id number] Procedures [...] of abdomen with contrast Dr. Guilherme Guerra [facility] Work Phone: Start: 09-08-2021 MRI of abdomen with contrast Dr. Guilherme Guerra [facility] Work Phone: Start: 08-20-2021 CT of chest without contrast Start: 08-20-2021 CT of face Start: 03-30-2017 End: 03-30-2017 Colonoscopy flx dx w/collj spec when pfrmd Louis Espinoza MD Work Phone: Start: 03-30-2017 End: 03-30-2017 Esophagogastroduodenoscopy transoral diagnostic Louis Espinoza MD Work Phone: Plan of Treatment Date Care Activity Detail Author Start: 11-27-2024 Laparoscopic appendectomy Laparoscopic, Appendectomy (Not Applicable) [facility] Start: 11-27-2024 Hospital admission, emergency, from emergency room, medical nature [facility] Start: 11-27-2024 End: 11-27-2024 [facility] Start: 11-27-2024 Bacteria identified in Blood by Culture Blood Culture [facility] Start: 11-27-2024 Bacteria identified in Urine by Culture Urine Culture [facility] Start: 03-30-2017 End: 03-30-2017 Colonoscopy flx dx w/collj spec when pfrmd Colonoscopy [facility] ? Work Phone: Start: 03-30-2017 End: 03-30-2017 Esophagogastroduodenoscopy transoral diagnostic EGD; diagnostic [facility] [employer] Work Phone: Start: 03-30-2017 End: 03-30-2017 Appointment Appointment [facility] [employer] Work Phone: Urine culture [facility] Immunizations Immunization Date Immunization Notes Care Provider Fa cility 11-09-2022 tetanus toxoid, redu hiren diphtheria toxoid, and acellular pertussis vaccine, adsorbed Dr. Guilherme Erickson MD Work Phone: [facility] 07-15-2020 Covid ([employer]) Dr. Guilherme Erickson MD Work Phone: [facility] 05-08-2007 hepatitis B vaccine, adult dosage Dr. Guilherme Erickson MD Work Phone: [facility] 10-26-2006 hepatitis B vaccine, adult dosage Dr. Guilherme Erickson MD Work Phone: [facility] 09-16-2006 hepatitis B vaccine, adult dosage Dr. Guilherme Erickson MD Work Phone: [facility] Payers Date Payer Category Payer Self-pay [id number] 2024 Unknown [id number] 2018 Medicare 2018 Unknown 2014 Medicare [id number] 1950 Unknown [id number] 2.16.84 [id number] 1950 Unknown [id number] 2.16.84 [id number] 1950 Unknown [id number] 2.16. [id number] 1950 Unknown [id number] 2.16.84 [id number] Private Health Insurance [facility] [id number] Unknown [id number] Unknown [id number] 2.16.8 [id number] Unknown [id number] 2.16.8 [id number] Unknown [id number] 2.16.8 [id number] Social History Date Type Detail Facility Tobacco smoking stat us MDIS Unknown if ever smoked [facility] Work Phone: Start: 1950 Sex Assigned At Male [facility] Start: 11-11-2024 End: 11-27-2024 Tobacco smoking status NHIS Never smoked tobacco (finding) [facility] Goals Date Patient Goal Desired Activity /State Discharge summary 11-27-2024 Note Date & Type Note Facility 11-27-2024 Discharge summary Note Date/Time November 27, 2024 6:22pm [facility] Medical Records Department [address] [place] [address] Emergency Department Summary 11/27/24 MR#: [id number] Acct: [id number] Name: DONELL HERRMANN Rep #:[id number] : 1950 74 From: Kal Mcdonald DO [...] stools or blood in his stool. [facility] Medical History Hypothyroidism HTN (hypertension) Home Medications [...] Patient follow commands knew he was at [facility] the year is 2024 Skin: Warm, [...] evidence of first-degree AV block with a RI interval of 210. Patient was given dose [...] 84.9 H Lymph % (Auto) 6.0 L Prentiss % (Auto) 8.0 Eos % (Auto) 0.1 [...] Clarity Clear Urine pH 6.0 Ur Specific Vernalis 1.015 Urine Protein 100 H Urine Glucose [...] inguinal hernia with bladder herniation. Reading Location: [facility] Discharge Plan Triage Chief Complaint: Abd [...] mcg PO DAILY Primary Care Provider: Guilherme rEickson Referrals: Guilherme Erickson MD [Primary Care Provider] - Print Language: Burmese Disposition Disposition: Acute Care Hospital [facility] What to do if you have Problems For any increased pain, shortness of breath, bleeding, nausea or vomiting, chestpain, or any unexpected problems, contact your Primary Care Provider. Call [facility] ([phone]) or report to the closest Emergency Room. Call 911 if necessary. 11/27/241821 <Electronically signed by Kal Mcdonald DO> Cosigner Signature (if applicable): CC: Dr. Guilherme Erickson MD ~ Signed [facility] Work Phone: History and physical note 11-27-2024 Note Date & Type Note Facility 11-27-2024 History and physi elbert note [facility] Discharge summary 11-27-2024 Note Date & Type Note Facility 11-27-2024 Discharge summary [facility] Radiology Diagnostic study note 11-27-2024 Note Date & Type Note Facility 11-27-2024 Radiology Diagnostic study note [facility] Imaging Services [address] [place], [place] [address] Abdomen/Pelvis W IV Cont ONLY MR#: [id number] Acct: [id number] Name: DONELL HERRMANN Rep #: [id number] : 1950 M 74 From: Lupe French MD PCP: Dr. Guilherme Erickson MD Status: REG ER Study:Abdomen/Pelvis W IV Cont ONLY Date of E xam: 11/27/24 Exam# [id number] Ordering Dr: Servando Mcdonald DO PROCEDURE: ABDOMEN/PELVIS [...] inguinal hernia with bladder herniation. Reading Location: [facility] CC: Dr. Guilherme Erickson MD; Dr. Kal Mcdonald DO ~ [employer] Business [employer]st: Signed [facility] Evaluation note 11-11-2024 Note Date & Type Note Facility 11-11-2024 Evaluation note Diagnosis Onset Date Resolution Contact dermatitis acute October 302024 10:25am [facility] Work Phone: Evaluation note 11-11-2024 Note Date & Type Note Facility 11-11-2024 Evaluation note Diagnosis Onset Date Resolution Contact dermatitis acute October 302024 10:25am Acute appendicitis acute October 312024 6:39pm [facility] Work Phone: Evaluation note Note Date & Type Note Facility Evaluation note No assessment information availa ble [facility] Work Phone: Evaluation note Note Date & Type Note Facility Evaluation note Diagnosis Onset Date Chronic cough chronic [facility] Work Phone: History and physical note Note Date & Type Note Facility History and physical note Note Date/Time November 27, 2024 8:16pm [facility] Medical Records Department [address] [place] [address] History & Physical Exam 11/27/24 1908 MR#: [id number] Acct: [id number] Name: DONELL HERRMANN Rep #:[id number] : 1950 74 From: Ketan Bruno PCP: Dr. Guilherme Erickson MD Status:ADM IN Location: [facility] [id number] HPI - General General Date of Admission: 11/27/24 Chief Complaint: Acute onset right lower quadrant pain HPI Narrative DONELL HERRMANN, is a 74 M who presents to [facility] with complaints of progressive, acute onset abdominal [...] periappendiceal fluid but no evan abscess formation. [facility] Medical History (Updated 11/27/24 @ 18:59 by [...] (Auto) 84.9 H, Lymph % (Auto) 6.0L, Prentiss % (Auto) 8.0, Eos % (Auto) 0.1, [...] Clarity Clear, Urine pH 6.0, Ur Specific Vernalis 1.015, Urine Protein 100 H, Urine Glucose [...] inguinal hernia with bladder herniation. Reading Location: [facility] Assessment & Plan Assessment/Plan (1) Acute [...] Parry MD General Surgery Endocrine Surgery Pager: [facility] [address] [place] [address], [address] [place] [address] Office: [phone] Charges/Coding Visit Charges Inpatient E&M: 85018 Init Hosp L2 11/27/24 1914 <Electronically signed [...] MD; Dr. Ketan Parry MD ~* Signed [facility] Work Phone: Reason for referral (narrative) Note Date & Type Note Facility Reason for referral (narrative) No reason for referral information available [facility] Work Phone: Summary Purpose Family History No Family History Records FoundNo Family History Records FoundNo Family History Records FoundNo Family History Records FoundNo Family History Records Found Advance Directives Advance Directive Response Recorded Date/ Time Do you have a Healthcare Power of Pharmacology Professor? No November 27, 2024 3:40pm Chief Complaint [...] section and content) DATE CREATED AUTHOR 04/09/2018 [facility] DATE CREATED AUTHOR AUTHOR'S ORGANIZ ATION 04/09/2018 [facility] DATE CREATED AUTHOR AUTHOR'S ORGANIZ ATION 02/08/2020 [facility] DATE CREATED AUTHOR AUTHOR'S ORGANIZ ATION 07/28/2020 [facility] DATE CREATED AUTHOR AUTHOR'S ORGANIZ ATION 11/18/2024 [facility] Goals (unrecognized section and content) Goals [...] Provider Active Start: November 27, 2024 Dr. Ketna Parry MD Other Provider Active Sta rt: [...] BE BASED ON THE PRIMARY CLINICAL RECORDS. [facility] [employer] provides no warranty or guarantee of the accuracy or completeness of information in this document.
--- OUTSIDE RECORDS SUMMARY | 2024-11-28 00:46 | XMS RPT_ITS | CCD ---
Author Organization [facility] Care Team Providers Care [facility] Author Name Role Phone Louis Espinoza MD Unavailable [phone] [place], Marin S Unavailable Unavailabl e [place], [...] Other Provider Dr. Julio Mccall Attending Provider [phone] Yonas Johnson Attending Provider Dr. Guilherme Erickson MD Primary Care Provider Dr. Guilherme Erickson MD Attending Provider [phone] Dr. Guilherme Erickson MD Referring Provider Tabatha Muniz Attending Provider Tabatha Muniz Attending [...] Ketan Parry MD Attending Provider Dr. Ketan Paryr MD Other Provider [phone] Allergies Allergy Classification Reported Allergen(s) Allergy Type Date of Onset Reaction(s) Facility (13 sources) Pneumococcal vaccine Drug Allergy 08-27-2021 rash on arms [facility] (1 source) Pneumococcal vaccine Drug Allergy 11-11-2024 [facility] Repository Medications Current Medications Medication [...] One tablet by mouth daily LOSARTAN POTASSIUM [id number] Louis Espinoza MD niacin 500 mg oral [...] by mouth daily RED YEAST RICE EXTRACT [id number] Louis Espinoza MD Completed/Discontinued Medications Medication Drug [...] CPDR One tablet by mouth daily OMEPRAZOLE [id number] Louis Espinoza MD predniSONE 10 mg oral [...] Auto (Unsp spec) [#/Vol] 1.07 10*3/uL 0.83-4.51 [facility] Absolute neutrophil countOrd ered By: Kal Mcdonald on 11-27-2024 Neutrophils (Bld) [#/Vol] 15.2 10*3/uL High 2.0-7.7 [facility] Activated partial thrombopla stin time (aPTT) in platelet poor plasma by coagulation aOrdered By: Kal Mcdonald on 11-27-2024 aPTT Coag (PPP) [Time] 29.0 s 24.1-36.2 [facility] Anion gap in Serum or Plasma Ordered By: Kal Mcdonald on 11-27-2024 Anion gap [Moles/Vol] 15 mmol/L 5-15 [facility] Automated lymphocyte count a s percentage of total leukocytesOrdered By: Kal Mcdonald on 11-27-2024 Lymphocytes/100 WBC Auto (Unsp spec) 6.0 % Low 19-41 [facility] BUN/creatinine ratioOrdered By: Kal Mcdonald on 11-27-2024 Urea nitrogen/Creatinine [Mass ratio] 16.5 mg/mg 10-20 [facility] Basophil percentageOrdered B y: Kal Mcdonald on 11-27-2024 Basophils/100 WBC (Bld) 0.2 % 0-1 [facility] Bilirubin Test strip Ql (U)O rdered By: Kal Mcdonald on 11-27-2024 Bilirubin Ql (U) Negative Negative [facility] Bilirubin, totalOrdered By: Kal Mcdonald on 11-27-2024 Bilirubin [Mass/Vol] 0.95 mg/dL 0.00-1.30 [facility] Carbon dioxide, total [Moles /volume] in Central venous bloodOrdered By: Kal Mcdonald on 11-27-2024 CO2 [Moles/Vol] 23.6 mmol/L 21.0-32.0 [facility] Chloride assayOrdered By: Mariano Mcdonald on 11-27-2024 Chloride [Moles/Vol] 95 mmol/L Low 98-108 [facility] Eosinophil percentageOrdered By: Kal Mcdonald on 11-27-2024 Eosinophils/100 WBC (Bld) 0.1 % 0-5 [facility] Erythrocyte distribution wid th ratioOrdered By: Kal Mcdonald on 11-27-2024 Erythrocyte distribution width (RBC) [Ratio] 14.3 % 11.6-14.6 [facility] Erythrocyte distribution wid th standard deviationOrdered By: Kal Mcdonald on 11-27-2024 Erythrocyte distribution width (RBC) [Ratio] 49.5 fl High 35.1-43.9 [facility] Free A8Dccqthb By: Kal yu on 11-27-2024 Free T3 [Mass/Vol] 2.6 pg/mL 2.18-3.98 [facility] Glomerular filtration rate ( GFR) estimation/1.73 sq m using serum, plasma, or whole bOrdered By: Kal Mcdonald on 11-27-2024 GFR/1.73 sq M.predicted among non-blacks MDRD (S/P/Bld) [Vol rate/Area] 52 mL/min/{1.73_m2} Low >60 [facility] Comment on above: mL/min/1.73m2 CKD-EP I Creatinine Equation (2020) Hematocrit Auto (Bld) [Volum e fraction]Ordered By: Kal Mcdonald on 11-27-2024 Hematocrit (Bld) [Volume fraction] 41.3 % 40-54 [facility] Hemoglobin measurementOrdere d By: Kal Mcdonald on 11-27-2024 Hemoglobin (Bld) [Mass/Vol] 13.8 g/dL 13.0-16.5 [facility] Immature granulocytes/100 WB C Auto (Bld)Ordered By: Kal Mcdonald on 11-27-2024 Immature granulocytes/100 WBC (Bld) 0.800 % 0.0-0.9 [facility] Comment on above: IG% - Immature Granu locytes (promyelocytes, myelocytes and metamyelocytes) > 1% indicates that a LEFT SHIFT is Present. International normalized rat io (INR) calculationOrdered By: Kal Mcdonald on 11-27-2024 INR Coag (Bld) [Relative time] 1.1 {INR} [facility] Ketones Test strip Ql (U)Ord ered By: Kal Mcdonald on 11-27-2024 Ketones Ql (U) Negative Negative [facility] Laboratory - Chemistry and C hemistry - challengeOrdered By: Kal Mcdonald on 11-27-2024 AST [Catalytic activity/Vol] 24 U/L <38 [facility] Lactic acid measurementOrder ed By: Kal Mcdonald on 11-27-2024 Lactate [Moles/Vol] 1.2 mmol/L 0.0-2.0 [facility] MCV (mean corpuscular volume ) determinationOrdered By: Kal Mcdonald on 11-27-2024 MCV (RBC) [Entitic vol] 94.1 fL High 80-94 [facility] Mean corpuscular hemoglobin (MCH) determinationOrdered By: Kal Mcdonald on 11-27-2024 MCH (RBC) [Entitic mass] 31.4 pg 27.0-32.0 [facility] Mean corpuscular hemoglobin concentration (MCHC) determinationOrdered By: Kal Mcdonald on 11-27-2024 MCHC (RBC) [Mass/Vol] 33.4 g/dL 32-36 [facility] Mean platelet volume determi nationOrdered By: Kal Mcdonald on 11-27-2024 Platelet mean volume (Bld) [Entitic vol] 10.7 fL 6.2-12.0 [facility] Microscopic analysis of urin e for red blood cells (RBC)Ordered By: Kal Mcdonald on 11-27-2024 Microscopic analysis of urine for red blood cells (RBC) 0-5 SEEN /hpf 0-5 [facility] Monocyte percentageOrdered B y: Kal Mcdonald on 11-27-2024 Monocytes/100 WBC (Bld) 8.0 % 0-10 [facility] Mucus LM Ql (Urine sed)Order ed By: Kal Mcdonald on 11-27-2024 Mucus Ql (Urine sed) 0 SEEN /hpf [facility] Neutrophil percentageOrdered By: Kal Mcdonald on 11-27-2024 Neutrophils/100 WBC (Bld) 84.9 % High 47-70 [facility] Nitrite Test strip Ql (U)Ord ered By: Kal Mcdonald on 11-27-2024 Nitrite Ql (U) Negative Negative [facility] Nucleated red blood cell per centageOrdered By: Kal Mcdonald on 11-27-2024 Nucleated RBC/100 WBC (Bld) [Ratio] 0 % 0-5 [facility] Platelet countOrdered By: Mariano Mcdonald on 11-27-2024 Platelets (Bld) [#/Vol] 202 10*3/uL 150-450 [facility] Potassium measurement (mass/ volume)Ordered By: Kal Mcdonald on 11-27-2024 Potassium (Unsp spec) [Mass/Vol] 3.5 mmol/L 3.3-5.1 [facility] Protein Test strip Ql (U)Ord ered By: Kal Mcdonald on 11-27-2024 Protein Ql (U) 100 mg/dl High Negative [facility] Prothrombin timeOrdered By: Kal Mcdonald on 11-27-2024 PT Coag (PPP) [Time] 14.1 s 11.7-14.9 [facility] RBC Auto (Bld) [#/Vol]Ordere d By: Kal Mcdonald on 11-27-2024 RBC (Bld) [#/Vol] 4.39 10*6/uL Low 4.6-6.2 [facility] Serum creatinine measurement (mass/volume)Ordered By: Kal Mcdonald on 11-27-2024 Creatinine [Mass/Vol] 1.42 mg/dL High 0.70-1.20 [facility] Serum globulin measurementOr dered By: Kal Mcdonald on 11-27-2024 Globulin (S) [Mass/Vol] 4.6 g/dL High 2.2-4.2 [facility] Serum glucose measurement (m ass/volume)Ordered By: Kal Mcdonald on 11-27-2024 Glucose [Mass/Vol] 111 mg/dL High 70-99 [facility] Serum or plasma alanine rosario otransferase (ALT) measurementOrdered By: Kal Mcdonald on 11-27-2024 ALT [Catalytic activity/Vol] 20 U/L <47 [facility] Serum or plasma albumin jessica urement (mass/volume)Ordered By: Kal Mcdonald on 11-27-2024 Albumin [Mass/Vol] 4.7 g/dL 3.4-4.8 [facility] Serum or plasma albumin/glob ulin mass ratioOrdered By: Kal Mcdonald on 11-27-2024 Albumin/Globulin [Mass ratio] 1.0 {ratio} 0.9-2.4 [facility] Serum or plasma alkaline zulma sphatase measurementOrdered By: Kal Mcdonald on 11-27-2024 ALP [Catalytic activity/Vol] 56 U/L 40-129 [facility] Serum or plasma calcium jessica urement (mass/volume)Ordered By: Kal Mcdonald on 11-27-2024 Calcium [Mass/Vol] 9.7 mg/dL 7.6-11.0 [facility] Serum or plasma urea nitroge n measurement (mass/volume)Ordered By: Kal Mcdonald on 11-27-2024 Urea nitrogen [Mass/Vol] 23 mg/dL High 4-19 [facility] Sodium levelOrdered By: Eva Mcdonald on 11-27-2024 Sodium [Moles/Vol] 134 mmol/L 133-145 [facility] Squamous epithelial cells de tection in urine sediment by light microscopyOrdered By: Kal Mcdonald on 11-27-2024 Epithelial cells.squamous LM Ql (Urine sed) 0-5 SEEN /hpf 0-5 [facility] T4 freeOrdered By: Kal yu on 11-27-2024 Free T4 [Mass/Vol] 1.00 ng/dL 0.76-1.46 [facility] TSH DL <= 0.005 mIU/L QnOrde red By: Kal Mcdonald on 11-27-2024 TSH Qn 2.420 uIU/mL 0.300-4.200 [facility] Total proteinOrdered By: Kendell Mcdonald on 11-27-2024 Protein [Mass/Vol] 9.3 g/dL High 5.9-8.4 [facility] Urine clarityOrdered By: Kendell Mcdonald on 11-27-2024 Clarity (U) Clear Clear [facility] Urine color determinationOrd ered By: Kal Mcdonald on 11-27-2024 Color (U) Straw Yellow [facility] Urine glucose detectionOrder ed By: Kal Mcdonald on 11-27-2024 Glucose Ql (U) Normal mg/dl Normal [facility] Urine leukocyte esterase det ection by dipstickOrdered By: Kal Mcdonald on 11-27-2024 Leukocyte esterase Test strip Ql (U) Negative Negative [facility] Urine pHOrdered By: Kal allison on 11-27-2024 pH (U) 6.0 [pH] 5.0 - 8.0 [facility] Urine sediment bacteria coun t by microscopy (number/high power field)Ordered By: Kal Mcdonald on 11-27-2024 Bacteria LM.HPF (Urine sed) [#/Area] 0 /[HPF] None Seen [facility] Urine specific gravity measu rementOrdered By: Kal Mcdonald on 11-27-2024 Specific gravity (U) [Rel density] 1.015 1.002-1.030 [facility] Urine urobilinogen measureme ntOrdered By: Kal Tamara on 11-27-2024 Urobilinogen Ql (U) Normal mg/dl Normal [facility] White blood cell (WBC) count Ordered By: Kal Mcdonald on 11-27-2024 WBC (Bld) [#/Vol] 17.9 10*3/uL High 4.4-11.0 [facility] White blood cell countOrdere d By: Kal Mcdonald on 11-27-2024 White blood cell count 0-5 SEEN /hpf 0-5 [facility] Office Visit Reporton 2024 Office Visit Report [facility] [address] [place] [address] OFFICE VISIT Date of Service: 11/11/24 MR#: [id number] Acct: [id number] Patient: DONELL HERRMANN Rep #: [id number] : 1950 Provider: NEFTALI Davis Age/Sex: 74/M Location: [facility] [place] Status: Signed Intake Vital Signs 08/27/21 [...] Reasons: CONCERN FOR SHINGLES Chief Complaint: rash 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 Is patient in pain?: No [...] Trujillo Signature: Date (if applicable) CC: Normal [facility] Absolute lymphocyte countOrd ered By: Guilherme Erickson on 11-08-2024 Lymphocytes Auto (Unsp spec) [#/Vol] 1.42 10*3/uL 0.83-4.51 [facility] Absolute neutrophil countOrd ered By: Guilherme Erickson on 11-08-2024 Neutrophils (Bld) [#/Vol] 4.9 10*3/uL 2.0-7.7 [facility] Anion gap in Serum or Plasma Ordered By: Guilherme Erickson on 11-08-2024 Anion gap [Moles/Vol] 11 mmol/L 5- [facility] Automated lymphocyte count a s percentage of total leukocytesOrdered By: Guilherme Erickson on 11-08-2024 Lymphocytes/100 WBC Auto (Unsp spec) 19.1 % - [facility] BUN/creatinine ratioOrdered By: Guilherme Erickson on 11-08-2024 Urea nitrogen/Creatinine [Mass ratio] 23.5 mg/mg High 10- [facility] Basophil percentageOrdered B y: Guilherme Erickson on 11-08-2024 Basophils/100 WBC (Bld) 0.4 % 0- [facility] Bilirubin, totalOrdered By: Guilherme Erickson on 11-08-2024 Bilirubin [Mass/Vol] 0.61 mg/dL 0.00-1.30 [facility] CBC W/Diff, Automatedon 10-30 Absolute Lymph 1.42 X10 3/uL Normal 0.83-4.51 [facility] Comment on above: Order Comment: Order Date: 10/22/24 Order Info: [id number] - CBCD Performed By: #### L 500.5575, L501.9911, L501.1720, L500.4100, L501.9910, L100.0100 #### [facility] [address] [place], [address] Absolute Neut 4.9 X10 3/uL Normal 2.0-7.7 [facility] Comment on above: Order Comment: Order Date: 10/22/24 Order Info: [id number] - CBCD Performed By: #### L 500.4050, L501.9985, L501.9520, L500.4100, L501.9910, L100.0100 #### [facility] [address] [place], [address] Basophils/100 WBC (Bld) 0.4 % Normal 0-1 [facility] Comment on above: Order Comment: Order Date: 10/22/24 Order Info: [id number] - CBCD Performed By: #### L 500.4050, L501.9985, L501.9520, L500.4100, L501.9910, L100.0100 #### [facility] [address] [place], [address] Eosinophils/100 WBC (Bld) 2.3 % Normal 0-5 [facility] Comment on above: Order Comment: Order Date: 10/22/24 Order Info: [id number] - CBCD Performed By: #### L 500.4050, L501.9985, L501.9520, L500.4100, L501.9910, L100.0100 #### [facility] [address] [place], [address] Erythrocyte distribution width (RBC) [Ratio] 14.5 % Normal 11.6-14.6 [facility] Comment on above: Order Comment: Order Date: 10/22/24 Order Info: [id number] - CBCD Performed By: #### L 500.4050, L501.9985, L501.9520, L500.4100, L501.9910, L100.0100 #### [facility] [address] [place], [address] Hematocrit (Bld) [Volume fraction] 40.2 % Normal 40-54 [facility] Comment on above: Order Comment: Order Date: 10/22/24 Order Info: [id number] - CBCD Performed By: #### L 500.4050, L501.9985, L501.9520, L500.4100, L501.9910, L100.0100 #### [facility] [address] [place], [address] Hemoglobin (Bld) [Mass/Vol] 13.1 g/dL Normal 13.0-16.5 [facility] Comment on above: Order Comment: Order Date: 10/22/24 Order Info: [id number] - CBCD Performed By: #### L 500.4050, L501.9985, L501.9520, L500.4100, L501.9910, L100.0100 #### [facility] [address] [place], [address] IG% 0.500 Normal 0.0-0.9 [facility] Comment on above: Order Comment: Order Date: 10/22/24 Order Info: [id number] - CBCD Result Comment: IG% - Immature Granulocytes (promyelocytes, myelocytes and metamyelocytes) > 1% indicates that a LEFT SHIFT is Present. Performed By: #### L 500.4050, L501.9985, L501.9520, L500.4100, L501.9910, L100.0100 #### [facility] [address] [place], [address] Lymphocytes/100 WBC (Bld) 19.1 % Normal 19-41 [facility] Comment on above: Order Comment: Order Date: 10/22/24 Order Info: 0184-1 - CBCD Performed By: #### L 500.4050, L501.9985, L501.9520, L500.4100, L501.9910, L100.0100 #### [facility] [address] [place], [address] MCH (RBC) [Entitic mass] 31.7 pg Normal 27.0-32.0 [facility] Comment on above: Order Comment: Order Date: 10/22/24 Order Info: 0184-1 - CBCD Performed By: #### L 500.4050, L501.9985, L501.9520, L500.4100, L501.9910, L100.0100 #### [facility] [address] [place], [address] MCHC (RBC) [Mass/Vol] 32.6 g/dL Normal 32-36 [facility] Comment on above: Order Comment: Order Date: 10/22/24 Order Info: 0184-1 - CBCD Performed By: #### L 500.4050, L501.9985, L501.9520, L500.4100, L501.9910, L100.0100 #### [facility] [address] [place], [address] MCV (RBC) [Entitic vol] 97.3 fL High 80-94 [facility] Comment on above: Order Comment: Order Date: 10/22/24 Order Info: 0184-1 - CBCD Performed By: #### L 500.4050, L501.9985, L501.9520, L500.4100, L501.9910, L100.0100 #### [facility] [address] [place], [address] Monocytes/100 WBC (Bld) 12.4 % High 0-10 [facility] Comment on above: Order Comment: Order Date: 10/22/24 Order Info: 0184-1 - CBCD Performed By: #### L 500.4050, L501.9985, L501.9520, L500.4100, L501.9910, L100.0100 #### [facility] [address] [place], [address] Neutrophils/100 WBC (Bld) 65.3 % Normal 47-70 [facility] Comment on above: Order Comment: Order Date: 10/22/24 Order Info: [id number] - CBCD Performed By: #### L 500.4050, L501.9985, L501.9520, L500.4100, L501.9910, L100.0100 #### [facility] [address] [place], [address] Nucleated RBC (Bld) [#/Vol] 0 10*3/uL Normal 0-5 [facility] Comment on above: Order Comment: Order Date: 10/22/24 Order Info: 0184-1 - CBCD Performed By: #### L 500.4050, L501.9985, L501.9520, L500.4100, L501.9910, L100.0100 #### [facility] [address] [place], [address] Platelet mean volume (Bld) [Entitic vol] 12.1 fL High 6.2-12.0 [facility] Comment on above: Order Comment: Order Date: 10/22/24 Order Info: 0184-1 - CBCD Performed By: #### L 500.4050, L501.9985, L501.9520, L500.4100, L501.9910, L100.0100 #### [facility] [address] [place], [address] Platelets (Bld) [#/Vol] 195 10*3/uL Normal 150-450 [facility] Comment on above: Order Comment: Order Date: 10/22/24 Order Info: 0184-1 - CBCD Performed By: #### L 500.4050, L501.9985, L501.9520, L500.4100, L501.9910, L100.0100 #### [facility] [address] [place], [address] RBC (Bld) [#/Vol] 4.13 10*6/uL Low 4.6-6.2 [facility] Comment on above: Order Comment: Order Date: 10/22/24 Order Info: 0184-1 - CBCD Performed By: #### L 500.4050, L501.9985, L501.9520, L500.4100, L501.9910, L100.0100 #### [facility] [address] [place], [address] RDW SD 51.7 fl High 35.1-43.9 [facility] Comment on above: Order Comment: Order Date: 10/22/24 Order Info: [id number] - CBCD Performed By: #### L 500.4050, L501.9985, L501.9520, L500.4100, L501.9910, L100.0100 #### [facility] [address] [place], [address] WBC (Bld) [#/Vol] 7.4 10*3/uL Normal 4.4-11.0 [facility] Comment on above: Order Comment: Order Date: 10/22/24 Order Info: 0184-1 - CBCD Performed By: #### L 500.4050, L501.9985, L501.9520, L500.4100, L501.9910, L100.0100 #### [facility] [address] [place], [address] Calculated very low density lipoprotein (VLDL) cholesterol measurementOrdered By: Guilherme Erickson on 11-08-2024 Calculated very low density lipoprotein (VLDL) cholesterol measurement 19 mg/dL 5-40 [facility] Carbon dioxide, total [Moles /volume] in Central venous bloodOrdered By: Guilherme Erickson on 11-08-2024 CO2 [Moles/Vol] 23.0 mmol/L 21.0-32.0 [facility] Chloride assayOrdered By: Bimal Erickson on 11-08-2024 Chloride [Moles/Vol] 102 mmol/L 98-108 [facility] Comprehensive Metabolic Prof ilon 11-08-2024 Albumin/Globulin [Mass ratio] 1.1 {ratio} Normal 0.9-2.4 [facility] Comment on above: Order Comment: Order Date: 10/22/24 Order Info: [id number] - CMP Order Info: - LIPID Order Info: [id number] - TSH Order Info: [id number] - PSA Performed By: #### L 500.4050, L501.9985, L501.9520, L500.4100, L501.9910, L100.0100 #### [facility] [address] [place], [place], [address] ALK PHOS 55 U/L Normal 40-129 [facility] Comment on above: Order Comment: Order Date: 10/22/24 Order Info: [id number] - CMP Order Info: - LIPID Order Info: [id number] - TSH Order Info: [id number] - PSA Performed By: #### L 500.4050, L501.9985, L501.9520, L500.4100, L501.9910, L100.0100 #### [facility] [address] [place], [place], [address] ALT [Catalytic activity/Vol] 21 U/L Normal <=46 [facility] Comment on above: Order Comment: Order Date: 10/22/24 Order Info: [id number] - CMP Order Info: - LIPID Order Info: [id number] - TSH Order Info: [id number] - PSA Performed By: #### L 500.4050, L501.9985, L501.9520, L500.4100, L501.9910, L100.0100 #### [facility] [address] [place], [address] AST [Catalytic activity/Vol] 29 U/L Normal <=37 [facility] Comment on above: Order Comment: Order Date: 10/22/24 Order Info: [id number] - CMP Order Info: - LIPID Order Info: [id number] - TSH Order Info: [id number] - PSA Performed By: #### L 500.4050, L501.9985, L501.9520, L500.4100, L501.9910, L100.0100 #### [facility] [address] [place], [address] Bilirubin [Mass/Vol] 0.61 mg/dL Normal 0.00-1.30 [facility] Comment on above: Order Comment: Order Date: 10/22/24 Order Info: [id number] - CMP Order Info: [id number] - LIPID Order Info: [id number] - TSH Order Info: [id number] - PSA Performed By: #### L 500.4050, L501.9985, L501.9520, L500.4100, L501.9910, L100.0100 #### [facility] [address] [place], [address] Calcium [Mass/Vol] 9.2 mg/dL Normal 7.6-11.0 [facility] Comment on above: Order Comment: Order Date: 10/22/24 Order Info: [id number] - CMP Order Info: - LIPID Order Info: 3 - TSH Order Info: [id number] - PSA Performed By: #### L 500.4050, L501.9985, L501.9520, L500.4100, L501.9910, L100.0100 #### [facility] [address] [place], [address] Chloride [Moles/Vol] 102 mmol/L Normal 98-108 [facility] Comment on above: Order Comment: Order Date: 10/22/24 Order Info: 07-1 - CMP Order Info: [id number] - LIPID Order Info: [id number] - TSH Order Info: [id number] - PSA Performed By: #### L 500.4050, L501.9985, L501.9520, L500.4100, L501.9910, L100.0100 #### [facility] [address] [place], [address] CO2 [Moles/Vol] 23.0 mmol/L Normal 21.0-32.0 [facility] Comment on above: Order Comment: Order Date: 10/22/24 Order Info: 07-1 - CMP Order Info: - LIPID Order Info: [id number] - TSH Order Info: 7-1 - PSA Performed By: #### L 500.4050, L501.9985, L501.9520, L500.4100, L501.9910, L100.0100 #### [facility] [address] [place], [address] GAP 11 Normal 5-15 [facility] Comment on above: Order Comment: Order Date: 10/22/24 Order Info: [id number] - CMP Order Info: - LIPID Order Info: [id number] - TSH Order Info: [id number] - PSA Performed By: #### L 500.4050, L501.9985, L501.9520, L500.4100, L501.9910, L100.0100 #### [facility] [address] [place], [place], [address] Potassium [Moles/Vol] 4.5 mmol/L Normal 3.3-5.1 [facility] Comment on above: Order Comment: Order Date: 10/22/24 Order Info: 785-05 - CMP Order Info: - LIPID Order Info: [id number] - TSH Order Info: 7-1 - PSA Performed By: #### L 500.4050, L501.9985, L501.9520, L500.4100, L501.9910, L100.0100 #### [facility] [address] [place], [address] Sodium [Moles/Vol] 137 mmol/L Normal 133-145 [facility] Comment on above: Order Comment: Order Date: 10/22/24 Order Info: 0786-1 - CMP Order Info: [id number] - LIPID Order Info: 3 - TSH Order Info: 2857-1 - PSA Performed By: #### L 500.4050, L501.9985, L501.9520, L500.4100, L501.9910, L100.0100 #### [facility] [address] [place], [address] Albumin [Mass/Vol] 4.4 g/dL Normal 3.4-4.8 [facility] Comment on above: Order Comment: Order Date: 10/22/24 Order Info: 0786-1 - CMP Order Info: [id number] - LIPID Order Info: 3 - TSH Order Info: 7-1 - PSA Performed By: #### L 500.4050, L501.9985, L501.9520, L500.4100, L501.9910, L100.0100 #### [facility] [address] [place], [address] BUN/CRE 23.5 RATIO High 10-20 [facility] Comment on above: Order Comment: Order Date: 10/22/24 Order Info: 785- - CMP Order Info: - LIPID Order Info: [id number] - TSH Order Info: 71 - PSA Performed By: #### L 500.4050, L501.9985, L501.9520, L500.4100, L501.9910, L100.0100 #### [facility] [address] [place], [address] Creatinine [Mass/Vol] 1.38 mg/dL High 0.70-1.20 [facility] Comment on above: Order Comment: Order Date: 10/22/24 Order Info: 0786-1 - CMP Order Info: [id number] - LIPID Order Info: 3 - TSH Order Info: 2857-1 - PSA Performed By: #### L 500.4050, L501.9985, L501.9520, L500.4100, L501.9910, L100.0100 #### [facility] [address] [place], [address] GFR/1.73 sq M.predicted among non-blacks MDRD (S/P/Bld) [Vol rate/Area] 53 mL/min/{1.73_m2} Low >60 [facility] Comment on above: Order Comment: Order Date: 10/22/24 Order Info: 0786-1 - CMP Order Info: [id number] - LIPID Order Info: 3 - TSH Order Info: 7-1 - PSA Result Comment: mL/m in/1.73m2 CKD-EPI Creatinine Equation (2020) Performed By: #### L 500.4050, L501.9985, L501.9520, L500.4100, L501.9910, L100.0100 #### [facility] [address] [place], [address] Globulin (S) [Mass/Vol] 4.1 g/dL Normal 2.2-4.2 [facility] Comment on above: Order Comment: Order Date: 10/22/24 Order Info: 0786 - CMP Order Info: [id number] - LIPID Order Info: [id number] - TSH Order Info: 2856-05 - PSA Performed By: #### L 500.4050, L501.9985, L501.9520, L500.4100, L501.9910, L100.0100 #### [facility] [address] [place], [address] Glucose [Mass/Vol] 105 mg/dL High 70-99 [facility] Comment on above: Order Comment: Order Date: 10/22/24 Order Info: 0786- - CMP Order Info: [id number] - LIPID Order Info: 3 - TSH Order Info: 1 - PSA Performed By: #### L 500.4050, L501.9985, L501.9520, L500.4100, L501.9910, L100.0100 #### [facility] [address] [place], [address] T PROT 8.4 g/dL Normal 5.9-8.4 [facility] Comment on above: Order Comment: Order Date: 10/22/24 Order Info: 86-1 - CMP Order Info: [id number] - LIPID Order Info: [id number] - TSH Order Info: [id number] - PSA Performed By: #### L 500.4050, L501.9985, L501.9520, L500.4100, L501.9910, L100.0100 #### [facility] [address] [place], [place], [address] Urea nitrogen [Mass/Vol] 32 mg/dL High 4-19 [facility] Comment on above: Order Comment: Order Date: 10/22/24 Order Info: 0786-1 - CMP Order Info: [id number] - LIPID Order Info: 3 - TSH Order Info: 2856-05 - PSA Performed By: #### L 500.4050, L501.9985, L501.9520, L500.4100, L501.9910, L100.0100 #### [facility] [address] [place], [place], [id number] Eosinophil percentageOrdered By: Guilherme Erickson on 11-08-2024 Eosinophils/100 WBC (Bld) 2.3 % 0-5 [facility] Erythrocyte distribution wid th ratioOrdered By: Guilherme Erickson on 11-08-2024 Erythrocyte distribution width (RBC) [Ratio] 14.5 % 11.6-14.6 [facility] Erythrocyte distribution wid th standard deviationOrdered By: Guilherme Erickson on 11-08-2024 Erythrocyte distribution width (RBC) [Ratio] 51.7 fl High 35.1-43.9 [facility] Glomerular filtration rate ( GFR) estimation/1.73 sq m using serum, plasma, or whole bOrdered By: Guilherme Erickson on 11-08-2024 GFR/1.73 sq M.predicted among non-blacks MDRD (S/P/Bld) [Vol rate/Area] 53 mL/min/{1.73_m2} Low >60 [facility] Comment on above: mL/min/1.73m2 CKD-EP I Creatinine Equation (2020) Hematocrit Auto (Bld) [Volum e fraction]Ordered By: Guilherme Erickson on 11-08-2024 Hematocrit (Bld) [Volume fraction] 40.2 % 40-54 [facility] Hemoglobin A1con 11-08-2024 HbA1c (Bld) [Mass fraction] 6.2 % High <=5.6 [facility] Comment on above: Order Comment: Order Date: 10/22/24 Order Info: [id number] - A1C Result Comment: Norm al < 5.7 % Prediabetic 5.7 - 6.4 % Diabetic >or= 6.5 % Please note range changes. Performed By: #### L 500.4050, L501.9985, L501.9520, L500.4100, L501.9910, L100.0100 #### [facility], [address] Hemoglobin A1c percentageOrd ered By: Guilherme Erickson on 11-08-2024 HbA1c (Bld) [Mass fraction] 6.2 % High <5.7 [facility] Comment on above: Normal < 5.7 % Predi abetic 5.7 - 6.4 % Diabetic >or= 6.5 % Please note range changes. Hemoglobin measurementOrdere d By: Guilherme Erickson on 11-08-2024 Hemoglobin (Bld) [Mass/Vol] 13.1 g/dL 13.0-16.5 [facility] Immature granulocytes/100 WB C Auto (Bld)Ordered By: Guilherme Erickson on 11-08-2024 Immature granulocytes/100 WBC (Bld) 0.500 % 0.0-0.9 [facility] Comment on above: IG% - Immature Granu locytes (promyelocytes, myelocytes and metamyelocytes) > 1% indicates that a LEFT SHIFT is Present. LDL calc ser/plasOrdered By: Guilherme Erickson on 11-08-2024 Cholesterol in LDL [Mass/Vol] 114 mg/dL [facility] Comment on above: Vngxkrnhqr=738-815 m g/dL & Higher Wfgj=395 mg/dL or greater Laboratory - Chemistry and C hemistry - challengeOrdered By: Guilherme Erickson on 11-08-2024 AST [Catalytic activity/Vol] 29 U/L <38 [facility] Lipid Profileon 07-10-2025 CHOL:HDL 5.42 Normal [facility] Comment on above: Order Comment: Order Date: 10/22/24 Order Info: 07 - CMP Order Info: - LIPID Order Info: [id number] - TSH Order Info: [id number] - PSA Performed By: #### L 500.4050, L501.9985, L501.9520, L500.4100, L501.9910, L100.0100 #### [facility] [address] [place], [place], [id number] ([address]) Cholesterol [Mass/Vol] 162 mg/dL Normal <=200 [facility] Comment on above: Order Comment: Order Date: 10/22/24 Order Info: 785-05 - CMP Order Info: - LIPID Order Info: [id number] - TSH Order Info: [id number] - PSA Result Comment: Chol esterol level, Desirable <200 mg/dL Borderline high cholesterol 200-239 mg/dL High cholesterol >=240 mg/dL Recommendations of the NCEP Adult Treatment Panel for the following risk-cutoff thresholds for the [place] population. Performed By: #### L 500.4050, L501.9985, L501.9520, L500.4100, L501.9910, L100.0100 #### [facility] [address] [place], [address] Cholesterol in HDL [Mass/Vol] 30 mg/dL Low [facility] Comment on above: Order Comment: [...] 500.4050, L501.9985, L501.9520, L500.4100, L501.9910, L100.0100 #### [facility] [address] [place], [address] Cholesterol in LDL [Mass/Vol] 114 mg/dL Normal [facility] Comment on above: Order Comment: Order Date: 10/22/24 Order Info: 0786-1 - CMP Order Info: [id number] - LIPID Order Info: 3 - TSH Order Info: [id number]- - PSA Result Comment: Bord uduvdt=815-738 mg/dL Higher Wofh=370 mg/dL or greater Performed By: #### L 500.4050, L501.9985, L501.9520, L500.4100, L501.9910, L100.0100 #### [facility] [address] [place], [address] Cholesterol in VLDL [Mass/Vol] 19 mg/dL Normal 5-40 [facility] Comment on above: Order Comment: Order Date: 10/22/24 Order Info: 785-05 - CMP Order Info: - LIPID Order Info: [id number] - TSH Order Info: [id number] - PSA Performed By: #### L 500.4050, L501.9985, L501.9520, L500.4100, L501.9910, L100.0100 #### [facility] [address] [place], [address] Triglyceride [Mass/Vol] 93 mg/dL Normal [facility] Comment on above: Order Comment: [...] 500.4050, L501.9985, L501.9520, L500.4100, L501.9910, L100.0100 #### [facility] [place], [address] MCV (mean corpuscular volume ) determinationOrdered By: Guilherme Erickson on 11-08-2024 MCV (RBC) [Entitic vol] 97.3 fL High 80-94 [facility] Mean corpuscular hemoglobin (MCH) determinationOrdered By: Guilherme Erickson on 11-08-2024 MCH (RBC) [Entitic mass] 31.7 pg 27.0-32.0 [facility] Mean corpuscular hemoglobin concentration (MCHC) determinationOrdered By: Guilherme Erickson on 11-08-2024 MCHC (RBC) [Mass/Vol] 32.6 g/dL 32-36 [facility] Mean platelet volume determi nationOrdered By: Guilherme Erickson on 11-08-2024 Platelet mean volume (Bld) [Entitic vol] 12.1 fL High 6.2-12.0 [facility] Monocyte percentageOrdered B y: Guilherme Erickson on 11-08-2024 Monocytes/100 WBC (Bld) 12.4 % High 0-10 [facility] Neutrophil percentageOrdered By: Guilhermelizabeth Erickson on 11-08-2024 Neutrophils/100 WBC (Bld) 65.3 % 47-70 [facility] Nucleated red blood cell per centageOrdered By: Guilherme Erickson on 11-08-2024 Nucleated RBC/100 WBC (Bld) [Ratio] 0 % 0-5 [facility] PSA,Total - Annual Screenon 11-08-2024 PSA,TOT SCREEN 1.90 ng/mL Normal 0.02-4.00 [facility] Comment on above: Order Comment: Order Date: 10/22/24 Order Info: 0786-1 - CMP Order Info: [id number] - LIPID Order Info: 3016-3 - TSH [...] 500.4050, L501.9985, L501.9520, L500.4100, L501.9910, L100.0100 #### [facility] [address] [place], [address] Platelet countOrdered By: Biaml Erickson on 11-08-2024 Platelets (Bld) [#/Vol] 195 10*3/uL 150-450 [facility] Potassium measurement (mass/ volume)Ordered By: Guilherme Erickson on 11-08-2024 Potassium (Unsp spec) [Mass/Vol] 4.5 mmol/L 3.3-5.1 [facility] RBC Auto (Bld) [#/Vol]Ordere d By: Guilherme Erickson on 11-08-2024 RBC (Bld) [#/Vol] 4.13 10*6/uL Low 4.6-6.2 [facility] Screening total cholesterol/ high density lipoprotein (HDL) cholesterol ratioOrdered By: Guilherme Erikcson on 11-08-2024 Cholesterol.total/Chol esterol in HDL [Mass ratio] 5.42 {ratio} [facility] Serum creatinine measurement (mass/volume)Ordered By: Guilherme Erickson on 11-08-2024 Creatinine [Mass/Vol] 1.38 mg/dL High 0.70-1.20 [facility] Serum globulin measurementOr dered By: Guilherme Erickson on 11-08-2024 Globulin (S) [Mass/Vol] 4.1 g/dL 2.2-4.2 [facility] Serum glucose measurement (m ass/volume)Ordered By: Guilherme Erickson on 11-08-2024 Glucose [Mass/Vol] 105 mg/dL High 70-99 [facility] Serum or plasma alanine rosario otransferase (ALT) measurementOrdered By: Guilherme Erickson 11-08-2024 ALT [Catalytic activity/Vol] 21 U/L <47 [facility] Serum or plasma albumin jessica urement (mass/volume)Ordered By: Guilherme Erickson on 11-08-2024 Albumin [Mass/Vol] 4.4 g/dL 3.4-4.8 [facility] Serum or plasma albumin/glob ulin mass ratioOrdered By: Guilherme Erickson on 11-08-2024 Albumin/Globulin [Mass ratio] 1.1 {ratio} 0.9-2.4 [facility] Serum or plasma alkaline zulma sphatase measurementOrdered By: Guilherme Erickson on 11-08-2024 ALP [Catalytic activity/Vol] 55 U/L 40-129 [facility] Serum or plasma calcium jessica urement (mass/volume)Ordered By: Guilherme Erickson on 11-08-2024 Calcium [Mass/Vol] 9.2 mg/dL 7.6-11.0 [facility] Serum or plasma cholesterol in HDL measurement (mass/volume)Ordered By: Guilherme Erickson on 11-08-2024 Cholesterol in HDL [Mass/Vol] 30 mg/dL Low >40 [facility] Comment on above: National Cholesterol Education Program (NCEP) guidelines:<40 mg/dL: Low HDL-cholesterol (major risk factor for CHD)>= 60 mg/dL: High HDL-cholesterol (negative risk factor for CHD)HDL-cholesterol is affected by a number of factors, e.g. smoking, exercise, hormones, sex and age. Serum or plasma cholesterol measurement (mass/volume)Ordered By: Guilherme Erickson on 11-08-2024 Cholesterol [Mass/Vol] 162 mg/dL <201 [facility] Comment on above: Cholesterol level, D esirable <200 mg/dLBorderline high cholesterol 200-239 mg/dLHigh cholesterol >=240 mg/dLRecommendations of the NCEP Adult Treatment Panel for the following risk-cutoff thresholds for the [place] population. Serum or plasma urea nitroge n measurement (mass/volume)Ordered By: Guilherme Erickson on 11-08-2024 Urea nitrogen [Mass/Vol] 32 mg/dL High 4-19 [facility] Sodium levelOrdered By: Guilherme Erickson 11-08-2024 Sodium [Moles/Vol] 137 mmol/L 133-145 [facility] TSH DL <= 0.005 mIU/L QnOrde red By: Guilherme Erickson on 11-08-2024 TSH Qn 2.960 uIU/mL 0.300-4.200 [facility] Thyroid Stim Hormone (TSH)on 11-08-2024 TSH 2.960 uIU/mL Normal 0.300-4.200 [facility] Comment on above: Order Comment: Order Date: 10/22/24 Order Info: 0786-1 - CMP Order Info: [id number] - LIPID Order Info: [id number] - TSH Order Info: 2857-1 - PSA Performed By: #### L 500.4050, L501.9985, L501.9520, L500.4100, L501.9910, L100.0100 #### [facility] [address] [place], [place], [id number] Total proteinOrdered By: Sheila Erickson on 11-08-2024 Protein [Mass/Vol] 8.4 g/dL 5.9-8.4 [facility] Triglycerides measurementOrd ered By: Guilherme Erickson on 11-08-2024 Triglyceride [Mass/Vol] 93 mg/dL <199 [facility] Comment on above: The drugs N-Acetylcy steine and Metamizole may falsely depress this assay. Normal range: <150 mg/dLBorderline High: 150-199 mg/dLHigh: 200-499 mg/dLVery High: >500 mg/dL White blood cell (WBC) count Ordered By: Guilherme Erickson on 11-08-2024 WBC (Bld) [#/Vol] 7.4 10*3/uL 4.4-11.0 [facility] Comprehensive Metabolic Prof ilon 05-21-2024 Albumin [Mass/Vol] 4.1 g/dL Normal 3.2-5.0 [facility] Comment on above: Order Comment: Order Date: 11/15/23 Order Info: 0786-1 - CMP Performed By: #### L 500.4050, L502.0250, L501.9985 #### [facility] [address] [place], [place], [id number] Albumin/Globulin [Mass ratio] 0.9 {ratio} Normal 0.9-2.4 [facility] Comment on above: Order Comment: Order Date: 11/15/23 Order Info: 0786-1 - CMP Performed By: #### L 500.4050, L502.0250, L501.9985 #### [facility] [address] [place], [address] ALK P 56 U/L Normal 45-117 [facility] Comment on above: Order Comment: Order Date: 11/15/23 Order Info: 0786-1 - CMP Performed By: #### L 500.4050, L502.0250, L501.9985 #### [facility] [address] [place], [address] ALT [Catalytic activity/Vol] 28 U/L Normal 16-61 [facility] Comment on above: Order Comment: Order Date: 11/15/23 Order Info: 0786-1 - CMP Performed By: #### L 500.4050, L502.0250, L501.9985 #### [facility] [address] [place], [address] AST [Catalytic activity/Vol] 22 U/L Normal 15-37 [facility] Comment on above: Order Comment: Order Date: 11/15/23 Order Info: 0786-1 - CMP Performed By: #### L 500.4050, L502.0250, L501.9985 #### [facility] [address] [place], [address] Bilirubin [Mass/Vol] 0.70 mg/dL Normal 0.20-1.00 [facility] Comment on above: Order Comment: Order Date: 11/15/23 Order Info: 0786-1 - CMP Result Comment: For patients on eltrombopag therapy, use of Dimension [place] TBIL is not recommended. Performed By: #### L 500.4050, L502.0250, L501.9985 #### [facility] [address] [place], [address] BUN/CRE 22.0 RATIO High 10-20 [facility] Comment on above: Order Comment: Order Date: 11/15/23 Order Info: 0786-1 - CMP Performed By: #### L 500.4050, L502.0250, L501.9985 #### [facility] [address] [place], [address] CA,Total 9.5 mg/dL Normal 8.5-10.1 [facility] Comment on above: Order Comment: Order Date: 11/15/23 Order Info: 0786-1 - CMP Performed By: #### L 500.4050, L502.0250, L501.9985 #### [facility] [address] [place], [address] Chloride [Moles/Vol] 103 mmol/L Normal 98-107 [facility] Comment on above: Order Comment: Order Date: 11/15/23 Order Info: 0786-1 - CMP Performed By: #### L 500.4050, L502.0250, L501.9985 #### [facility] [address] [place], [address] CO2 [Moles/Vol] 29.0 mmol/L Normal 21.0-32.0 [facility] Comment on above: Order Comment: Order Date: 11/15/23 Order Info: 0786-1 - CMP Performed By: #### L 500.4050, L502.0250, L501.9985 #### [facility] [address] [place], [address] Creatinine [Mass/Vol] 1.32 mg/dL High 0.70-1.30 [facility] Comment on above: Order Comment: Order Date: 11/15/23 Order Info: 0786-1 - CMP Result Comment: The validity of the calculated GFR GFRAA in patients over 70 years has not been determined. Clinical correlation is essential. Performed By: #### L 500.4050, L502.0250, L501.9985 #### [facility] [address] [place], [address] EST GFR - AA 68 mL/min Normal >60 [facility] Comment on above: Order Comment: Order Date: 11/15/23 Order Info: 0786-1 - CMP Result Comment: Afri can [place] GFR Calc Performed By: #### L 500.4050, L502.0250, L501.9985 #### [facility] [address] [place], [address] GAP 4 Low 5-15 [facility] Comment on above: Order Comment: Order Date: 11/15/23 Order Info: 0786-1 - CMP Performed By: #### L 500.4050, L502.0250, L501.9985 #### [facility] [address] [place], [address] GFR/1.73 sq M.predicted among non-blacks MDRD (S/P/Bld) [Vol rate/Area] 56 mL/min/{1.73_m2} Low >60 [facility] Comment on above: Order Comment: Order Date: 11/15/23 Order Info: 0786-1 - CMP Result Comment: Non- GFR Calc Performed By: #### L 500.4050, L502.0250, L501.9985 #### [facility] [address] [place], [address] Globulin (S) [Mass/Vol] 4.6 g/dL High 2.2-4.2 [facility] Comment on above: Order Comment: Order Date: 11/15/23 Order Info: 0786-1 - CMP Performed By: #### L 500.4050, L502.0250, L501.9985 #### [facility] [address] [place], [address] Glucose [Mass/Vol] 107 mg/dL High 74-106 [facility] Comment on above: Order Comment: Order Date: 11/15/23 Order Info: 0786-1 - CMP Result Comment: Fast ing Glucose result from 100 to 125 mg/dL suggests IMPAIRED HOMEOSTASIS per A.D.A. criteria. Performed By: #### L 500.4050, L502.0250, L501.9985 #### [facility] [address] [place], [address] Potassium [Moles/Vol] 4.2 mmol/L Normal 3.5-5.1 [facility] Comment on above: Order Comment: Order Date: 11/15/23 Order Info: 0786-1 - CMP Performed By: #### L 500.4050, L502.0250, L501.9985 #### [facility] [address] [place], [address] Sodium [Moles/Vol] 136 mmol/L Normal 136-145 [facility] Comment on above: Order Comment: Order Date: 11/15/23 Order Info: 0786-1 - CMP Performed By: #### L 500.4050, L502.0250, L501.9985 #### [facility] [address] [place], [address] T PROT 8.7 g/dL High 6.4-8.2 [facility] Comment on above: Order Comment: Order Date: 11/15/23 Order Info: 0786-1 - CMP Performed By: #### L 500.4050, L502.0250, L501.9985 #### [facility] [address] [place], [address] Urea nitrogen [Mass/Vol] 29 mg/dL High 7-18 [facility] Comment on above: Order Comment: Order Date: 11/15/23 Order Info: 0786-1 - CMP Performed By: #### L 500.4050, L502.0250, L501.9985 #### [facility] [address] [place], [address] Hemoglobin A1con 05-21-2024 HbA1c (Bld) [Mass fraction] 6.0 % High 3.8-5.6 [facility] Comment on above: Order Comment: Order Date: 11/15/23 Order Info: 4548-4 - A1C Result Comment: Norm al < 5.7 % Prediabetic 5.7 - 6.4 % Diabetic >or= 6.5 % Please note range changes. Performed By: #### L 500.4050, L502.0250, L501.9985 #### [facility] [address] [place], [address] Microalb:Creat Ratio,Random URon 05-21-2024 Creatinine [Mass/Vol] 24.30 mg/dL Normal NO RAN GE EST. [facility] Comment on above: Order Comment: Order Date: 11/15/23 Order Info: 0779-1 - MIACRE Performed By: #### L 500.4050, L502.0250, L501.9985 #### [facility] [address] [place], [address] MALB:CRE 41.2 mg/g CRE High <30 mg/g CRE [facility] Comment on above: Order Comment: Order Date: 11/15/23 Order Info: 0779-1 - MIACRE Performed By: #### L 500.4050, L502.0250, L501.9985 #### [facility] [address] [place], [address] MICROALBUMIN,UR 10.0 mg/L Normal NO RANGE EST. [facility] Comment on above: Order Comment: Order Date: 11/15/23 Order Info: 0779-1 - MIACRE Performed By: #### L 500.4050, L502.0250, L501.9985 #### [facility] [address] [place], [address] Basophil percentageOrdered B y: Guilherme Erickson on 02-15-2023 Bilirubin [Mass/Vol] 0.50 mg/dL 0.20-1.00 [facility] Comment on above: For patients on eltr ombopag therapy, use of Dimension [place] TBIL is not recommended. Chloride [Moles/Vol] 104 mmol/L 98-107 [facility] Glucose [Mass/Vol] 101 mg/dL 74-106 [facility] Comment on above: Fasting Glucose resu lt from 100 to 125 mg/dL suggests IMPAIRED HOMEOSTASIS per A.D.A. criteria. Potassium [Moles/Vol] 3.9 mmol/L 3.5-5.1 [facility] Protein [Mass/Vol] 8.9 g/dL 6.4-8.2 [facility] Sodium [Moles/Vol] 138 mmol/L 136-145 [facility] Laboratory - Chemistry and C hemistry - challengeOrdered By: Guilherme Erickson on 02-15-2023 ALP [Catalytic activity/Vol] 60 U/L 45-117 [facility] ALT [Catalytic activity/Vol] 33 U/L 16-61 [facility] CO2 [Moles/Vol] 29.0 mmol/L 21.0-32.0 [facility] Globulin (S) [Mass/Vol] 4.8 g/dL 2.2-4.2 [facility] Urea nitrogen/Creatinine [Mass ratio] 23.1 mg/mg 10-20 [facility] No Panel InformationOrdered By: Guilherme Erickson on 02-15-2023 Estimated GFR (MDRD) Amer 70 mL/min >60 [facility] Comment on above: GFR Calc Estimated GFR (MDRD) Non-Af Amer 58 mL/min >60 [facility] Comment on above: Non- GFR Calc Prostate Specific Antigen Total 2.03 ng/mL 0.0-4.0 [facility] Comment on above: This test was perfor med using the TPSA assay method for the[facility]. Values obtained with differentassay methods cannot be used interchangably.When changing PSA assays in the course of monitoring apatient, additional sequential testing should be carriedout to confirm baseline values. Serum or plasma albumin jessica urement (mass/volume)Ordered By: Guilherme Erickson on 02-15-2023 Albumin [Mass/Vol] 4.1 g/dL 3.2-5.0 [facility] Serum or plasma albumin/glob ulin mass ratioOrdered By: Guilherme Erickson on 02-15-2023 Albumin/Globulin [Mass ratio] 0.9 {ratio} 0.9-2.4 [facility] Serum or plasma calcium jessica urement (mass/volume)Ordered By: Guilherme Erickson on 02-15-2023 Calcium [Mass/Vol] 9.3 mg/dL 8.5-10.1 [facility] Serum or plasma creatinine m easurement (mass/volume)Ordered By: Guilherme Erickson on 02-15-2023 Creatinine [Mass/Vol] 1.30 mg/dL 0.70-1.30 [facility] Comment on above: The validity of the calculated GFR & GFRAA in patients over 70 years has not been determined. Clinical correlation is essential. Serum or plasma urea nitroge n measurement (mass/volume)Ordered By: Guilherme Erickson on 02-15-2023 Urea nitrogen [Mass/Vol] 30 mg/dL 7- [facility] Thin prep Papanicolaou smear with manual screeningOrdered By: Guilherme Erickson on 02-15-2023 Thin prep Papanicolaou smear with manual screening 24 U/L [facility] Thin prep Papanicolaou smear with manual screening 5 5-15 [facility] Whole blood hemoglobin A1c/t otal hemoglobin ratio (mass fraction)Ordered By: Guilherme Erickson on 02-15-2023 HbA1c (Bld) [Mass fraction] 6.1 % 3.8-5.6 [facility] Comment on above: Normal < 5.7 % Predi abetic 5.7 - 6.4 % Diabetic >or= 6.5 % Please note range changes. Basophil percentageOrdered B y: Dr. Erickson on 10-12-2022 Bilirubin [Mass/Vol] 0.60 mg/dL 0.20-1.00 [facility] Comment on above: For patients on eltr ombopag therapy, use of Dimension [place] TBIL is not recommended. Chloride [Moles/Vol] 102 mmol/L 98-107 [facility] Glucose [Mass/Vol] 101 mg/dL 74-106 [facility] Comment on above: Fasting Glucose resu lt from 100 to 125 mg/dL suggests IMPAIRED HOMEOSTASIS per A.D.A. criteria. Potassium [Moles/Vol] 3.7 mmol/L 3.5-5.1 [facility] Protein [Mass/Vol] 8.2 g/dL 6.4-8.2 [facility] Sodium [Moles/Vol] 134 mmol/L 136-145 [facility] WBC (Bld) [#/Vol] 5.8 10*3/uL 4.4-11.0 [facility] Blood erythrocytes count (nu mber/volume)Ordered By: Dr. Erickson on 10-12-2022 RBC (Bld) [#/Vol] 4.29 10*6/uL 4.6-6.2 [facility] Blood hemoglobin measurement (mass/volume)Ordered By: Dr. Erickson on 10-12-2022 Hemoglobin (Bld) [Mass/Vol] 13.7 g/dL 13.0-16.5 [facility] Blood platelet mean volumeOr dered By: Dr. Erickson on 10-12-2022 Platelet mean volume (Bld) [Entitic vol] 11.1 fL 6.2-12.0 [facility] Determination of erythrocyte mean corpuscular volume (MCV)Ordered By: Dr. Erickson on 10-12-2022 MCV (RBC) [Entitic vol] 97.0 fL 80-94 [facility] Hematocrit Auto (Bld) [Volum e fraction]Ordered By: Dr. Erickson on 10-12-2022 Hematocrit (Bld) [Volume fraction] 41.6 % 40-54 [facility] Laboratory - Chemistry and C hemistry - challengeOrdered By: Dr. Erickson on 10-12-2022 ALP [Catalytic activity/Vol] 60 U/L 45-117 [facility] ALT [Catalytic activity/Vol] 25 U/L 16-61 [facility] CO2 [Moles/Vol] 27.0 mmol/L 21.0-32.0 [facility] Globulin (S) [Mass/Vol] 4.3 g/dL 2.2-4.2 [facility] Urea nitrogen/Creatinine [Mass ratio] 20.8 mg/mg 10-20 [facility] Laboratory - Hematology and Cell countsOrdered By: Dr. Erickson on 10-12-2022 Erythrocyte distribution width (RBC) [Entitic vol] 51.6 fL 35.1-43.9 [facility] Erythrocyte distribution width (RBC) [Ratio] 14.5 % 11.6-14.6 [facility] MCH (RBC) [Entitic mass] 31.9 pg 27.0-32.0 [facility] Auto (RBC) [Mass/Vol]Or dered By: Dr. Erickson on 10-12-2022 MCHC (RBC) [Mass/Vol] 32.9 g/dL 32-36 [facility] No Panel InformationOrdered By: Dr. Erickson on 10-12-2022 Estimated GFR (MDRD) Amer 70 mL/min >60 [facility] Comment on above: GFR Calc Estimated GFR (MDRD) Non-Af Amer 58 mL/min >60 [facility] Comment on above: Non- GFR Calc Prostate Specific Antigen Total 1.54 ng/mL 0.0-4.0 [facility] Comment on above: This test was perfor med using the TPSA assay method for [employer] chemistry system. Values obtained with differentassay methods cannot be used interchangably.When changing PSA assays in the course of monitoring apatient, additional sequential testing should be carriedout to confirm baseline values. Thyroid Stimulating Hormone (TSH) 2.31 uIU/mL 0.358-3.74 [facility] Urine Microalbumin/Creatinin e Ratio 9.9 mg/g CRE <30 [facility] Platelets bldOrdered By: Dr. Erickson on 10-12-2022 Platelets (Bld) [#/Vol] 210 10*3/uL 150-450 [facility] Serum or plasma albumin jessica urement (mass/volume)Ordered By: Dr. Erickson on 10-12-2022 Albumin [Mass/Vol] 3.9 g/dL 3.2-5.0 [facility] Serum or plasma albumin/glob ulin mass ratioOrdered By: Dr. Erickson on 10-12-2022 Albumin/Globulin [Mass ratio] 0.9 {ratio} 0.9-2.4 [facility] Serum or plasma calcium jessica urement (mass/volume)Ordered By: Dr. Erickson on 10-12-2022 Calcium [Mass/Vol] 8.8 mg/dL 8.5-10.1 [facility] Serum or plasma creatinine m easurement (mass/volume)Ordered By: Dr. Erickson on 10-12-2022 Creatinine [Mass/Vol] 1.30 mg/dL 0.70-1.30 [facility] Comment on above: The validity of the calculated GFR & GFRAA in patients over 70 years has not been determined. Clinical correlation is essential. Serum or plasma urea nitroge n measurement (mass/volume)Ordered By: Dr. Erickson on 10-12-2022 Urea nitrogen [Mass/Vol] 27 mg/dL 7-18 [facility] Thin prep Papanicolaou smear with manual screeningOrdered By: Dr. Erickson on 10-12-2022 Thin prep Papanicolaou smear with manual screening 24 U/L 15-37 [facility] Thin prep Papanicolaou smear with manual screening 5 5-15 [facility] Thin prep Papanicolaou smear with manual screening 11.8 mg/L NO RANGE EST. [facility] Urine creatinine measurement (mass/volume)Ordered By: Dr. Erickson on 10-12-2022 Creatinine (U) [Mass/Vol] 119.00 mg/dL NO RANGE EST. [facility] Whole blood hemoglobin A1c/t otal hemoglobin ratio (mass fraction)Ordered By: Dr. Erickson on 10-12-2022 HbA1c (Bld) [Mass fraction] 6.1 % 3.8-5.6 [facility] Comment on above: Normal < 5.7 % Predi abetic 5.7 - 6.4 % Diabetic >or= 6.5 % Please note range changes. No Panel Informationon 04-15 Prostate Specific Antigen Screen 1.43 ng/mL 0.00-4.00 [facility] Work Phone: Comment on above: This test was perfor med using the TPSA assay method [facility] the[facility]. Values obtained with differentassay methods cannot be used interchangably.When changing PSA assays in the course of monitoring apatient, additional sequential testing should be carriedout to confirm baseline values. Absolute lymphocyte counton 02-04-2022 Lymphocytes Auto (Unsp spec) [#/Vol] 1.32 10*3/uL 0.83-4.51 [facility] Work Phone: Basophil percentageon 2021 Basophils/100 WBC (Bld) 0.3 % 0-1 [facility] Work Phone: Bilirubin [Mass/Vol] 0.60 mg/dL 0.20-1.00 [facility] Work Phone: Comment on above: For patients on eltr ombopag therapy, use of Dim[employer] [place] TBIL is not recommended. Chloride [Moles/Vol] 103 mmol/L 98-107 [facility] Work Phone: Eosinophils/100 WBC (Bld) 2.0 % 0-5 [facility] Work Phone: Glucose [Mass/Vol] 97 mg/dL 74-106 [facility] Work Phone: Neutrophils (Bld) [#/Vol] 4.2 10*3/uL 2.0-7.7 [facility] Work Phone: Neutrophils/100 WBC (Bld) 63.1 % 47-70 [facility] Work Phone: Potassium [Moles/Vol] 4.1 mmol/L 3.5-5.1 [facility] Work Phone: Protein [Mass/Vol] 8.8 g/dL 6.4-8.2 [facility] Work Phone: Sodium [Moles/Vol] 139 mmol/L 136-145 [facility] Work Phone: WBC (Bld) [#/Vol] 6.6 10*3/uL 4.4-11.0 [facility] Work Phone: [phone] Blood erythrocytes count (nu mber/volume)on 02-04-2022 RBC (Bld) [#/Vol] 4.14 10*6/uL 4.6-6.2 [facility] Work Phone: Blood hemoglobin measurement (mass/volume)on 02-04-2022 Hemoglobin (Bld) [Mass/Vol] 13.1 g/dL 13.0-16.5 [facility] Work Phone: Blood lymphocytes/100 leukoc yteson 02-04-2022 Lymphocytes/100 WBC (Bld) 19.9 % 19-41 [facility] Work Phone: Blood monocytes/100 leukocyt eson 02-04-2022 Monocytes/100 WBC (Bld) 14.2 % 0-10 [facility] Work Phone: Blood platelet mean volumeon 02-04-2022 Platelet mean volume (Bld) [Entitic vol] 11.3 fL 6.2-12.0 [facility] Work Phone: Determination of erythrocyte mean corpuscular volume (MCV)on 02-04-2022 MCV (RBC) [Entitic vol] 98.8 fL 80-94 [facility] Work Phone: Erythrocyte sedimentation ra cecilia 02-04-2022 ESR (Bld) [Velocity] 38 mm/h 0-20 [facility] Work Phone: Hematocrit Auto (Bld) [Volum e fraction]on 02-04-2022 Hematocrit (Bld) [Volume fraction] 40.9 % 40-54 [facility] Work Phone: Laboratory - Chemistry and C hemistry - challengeon 02-04-2022 ALP [Catalytic activity/Vol] 59 U/L 45-117 [facility] Work Phone: ALT [Catalytic activity/Vol] 35 U/L 16-61 [facility] Work Phone: CO2 [Moles/Vol] 28.0 mmol/L 21.0-32.0 [facility] Work Phone: Globulin (S) [Mass/Vol] 4.7 g/dL 2.2-4.2 [facility] Work Phone: [phone] Urea nitrogen/Creatinine [Mass ratio] 22.5 mg/mg 10-20 [facility] Work Phone: Laboratory - Hematology and Cell countson 02-04-2022 Erythrocyte distribution width (RBC) [Entitic vol] 53.0 fL 35.1-43.9 [facility] Work Phone: [phone] Erythrocyte distribution width (RBC) [Ratio] 14.6 % 11.6-14.6 [facility] Work Phone: Immature granulocytes/100 WBC (Bld) 0.500 % 0.0-0.9 [facility] Work Phone: Comment on above: IG% - Immature Granu locytes (promyelocytes, myelocytes and metamyelocytes) > 1% indicates that a LEFT SHIFT is Present. MCH (RBC) [Entitic mass] 31.6 pg 27.0-32.0 [facility] Work Phone: Nucleated RBC/100 WBC (Bld) [Ratio] 0 % 0-5 [facility] Work Phone: MCHC Auto (RBC) [Mass/Vol]on 02-04-2022 MCHC (RBC) [Mass/Vol] 32.0 g/dL 32-36 [facility] Work Phone: No Panel Informationon 02-04 Estimated GFR (MDRD) Amer 70 mL/min >60 [facility] Work Phone: Comment on above: GFR Calc Estimated GFR (MDRD) Non-Af Amer 58 mL/min >60 [facility] Work Phone: Comment on above: Non- GFR Calc Platelets bldon 02-04-2022 Platelets (Bld) [#/Vol] 211 10*3/uL 150-450 [facility] Work Phone: Serum or plasma C reactive p rotein measurement (mass/volume)on 02-04-2022 CRP [Mass/Vol] 3.68 mg/L 0.0-3.0 [facility] Work Phone: Comment on above: C-Reactive Protein ( CRP) provides useful information for thediagnosis, therapy and monitoring of inflammatory processesand associated diseases. For the evaluation of Relative Riskfor Cardiovascular Disease, a High Sensitivity CRP (HSCRP)should be ordered. Serum or plasma albumin jessica urement (mass/volume)on 02-04-2022 Albumin [Mass/Vol] 4.1 g/dL 3.2-5.0 [facility] Work Phone: Serum or plasma albumin/glob ulin mass ratioon 02-04-2022 Albumin/Globulin [Mass ratio] 0.9 {ratio} 0.9-2.4 [facility] Work Phone: Serum or plasma calcium jessica urement (mass/volume)on 02-04-2022 Calcium [Mass/Vol] 9.3 mg/dL 8.5-10.1 [facility] Work Phone: Serum or plasma creatinine m easurement (mass/volume)on 02-04-2022 Creatinine [Mass/Vol] 1.29 mg/dL 0.70-1.30 [facility] Work Phone: Comment on above: The validity of the calculated GFR & GFRAA in patients over 70 years has not been determined. Clinical correlation is essential. Serum or plasma urea nitroge n measurement (mass/volume)on 02-04-2022 Urea nitrogen [Mass/Vol] 29 mg/dL 7-18 [facility] Work Phone: Thin prep Papanicolaou smear with manual screeningon 02-04-2022 Thin prep Papanicolaou smear with manual screening 26 U/L 15-37 [facility] Work Phone: Thin prep Papanicolaou smear with manual screening 8 5-15 [facility] Work Phone: Absolute lymphocyte counton 10-26-2021 Lymphocytes Auto (Unsp spec) [#/Vol] 1.57 10*3/uL 0.83-4.51 [facility] Work Phone: Basophil percentageon 2021 Basophils/100 WBC (Bld) 0.3 % 0-1 [facility] Work Phone: Bilirubin [Mass/Vol] 0.50 mg/dL 0.20-1.00 [facility] Work Phone: Comment on above: For patients on eltr ombopag therapy, use of [employer] [place] TBIL is not recommended. Chloride [Moles/Vol] 101 mmol/L 98-107 [facility] Work Phone: Eosinophils/100 WBC (Bld) 2.0 % 0-5 [facility] Work Phone: Glucose [Mass/Vol] 122 mg/dL 74-106 [facility] Work Phone: Comment on above: Fasting Glucose resu lt from 100 to 125 mg/dL suggests IMPAIRED HOMEOSTASIS per A.D.A. criteria. Neutrophils (Bld) [#/Vol] 5.4 10*3/uL 2.0-7.7 [facility] Work Phone: Neutrophils/100 WBC (Bld) 69.1 % 47-70 [facility] Work Phone: Potassium [Moles/Vol] 3.4 mmol/L 3.5-5.1 [facility] Work Phone: Protein [Mass/Vol] 8.7 g/dL 6.4-8.2 [facility] Work Phone: Sodium [Moles/Vol] 138 mmol/L 136-145 [facility] Work Phone: WBC (Bld) [#/Vol] 7.9 10*3/uL 4.4-11.0 [facility] Work Phone: Blood erythrocytes count (nu mber/volume)on 10-26-2021 RBC (Bld) [#/Vol] 4.29 10*6/uL 4.6-6.2 [facility] Work Phone: Blood hemoglobin measurement (mass/volume)on 10-26-2021 Hemoglobin (Bld) [Mass/Vol] 13.6 g/dL 13.0-16.5 [facility] Work Phone: Blood lymphocytes/100 leukoc yteson 10-26-2021 Lymphocytes/100 WBC (Bld) 20.0 % 19-41 [facility] Work Phone: Blood monocytes/100 leukocyt eson 10-26-2021 Monocytes/100 WBC (Bld) 8.3 % 0-10 [facility] Work Phone: [phone] Blood platelet mean volumeon 10-26-2021 Platelet mean volume (Bld) [Entitic vol] 11.4 fL 6.2-12.0 [facility] Work Phone: Determination of erythrocyte mean corpuscular volume (MCV)on 10-26-2021 MCV (RBC) [Entitic vol] 96.0 fL 80-94 [facility] Work Phone: Erythrocyte sedimentation ra cecilia 10-26-2021 ESR (Bld) [Velocity] 38 mm/h 0-20 [facility] Work Phone: Hematocrit Auto (Bld) [Volum e fraction]on 10-26-2021 Hematocrit (Bld) [Volume fraction] 41.2 % 40-54 [facility] Work Phone: Laboratory - Chemistry and C hemistry - challengeon 10-26-2021 ALP [Catalytic activity/Vol] 57 U/L 45-117 [facility] Work Phone: ALT [Catalytic activity/Vol] 32 U/L 16-61 [facility] Work Phone: CO2 [Moles/Vol] 28.0 mmol/L 21.0-32.0 [facility] Work Phone: Globulin (S) [Mass/Vol] 4.8 g/dL 2.2-4.2 [facility] Work Phone: Urea nitrogen/Creatinine [Mass ratio] 21.5 mg/mg 10-20 [facility] Work Phone: Laboratory - Hematology and Cell countson 10-26-2021 Erythrocyte distribution width (RBC) [Entitic vol] 50.4 fL 35.1-43.9 [facility] Work Phone: Erythrocyte distribution width (RBC) [Ratio] 14.3 % 11.6-14.6 [facility] Work Phone: Immature granulocytes/100 WBC (Bld) 0.300 % 0.0-0.9 [facility] Work Phone: Comment on above: IG% - Immature Granu locytes (promyelocytes, myelocytes and metamyelocytes) > 1% indicates that a LEFT SHIFT is Present. MCH (RBC) [Entitic mass] 31.7 pg 27.0-32.0 [facility] Work Phone: Nucleated RBC/100 WBC (Bld) [Ratio] 0 % 0-5 [facility] Work Phone: MCHC Auto (RBC) [Mass/Vol]on 10-26-2021 MCHC (RBC) [Mass/Vol] 33.0 g/dL 32-36 [facility] Work Phone: No Panel Informationon 10-26 Estimated GFR (MDRD) Amer 70 mL/min >60 [facility] Work Phone: Comment on above: GFR Calc Estimated GFR (MDRD) Non-Af Amer 58 mL/min >60 [facility] Work Phone: Comment on above: Non- GFR Calc Hepatitis B Surface Antigen Non-Reactive Nonreactive [facility] Work Phone: Hepatitis C Antibody Non-Reactive Nonreactive [facility] Work Phone: Comment on above: Non Reactive: < 0.8 Equivocal: >/= 0.8 to < 1.0 Reactive: >/= 1.0The CDC recommends that a reactive/equivocal HCV antibody result be followed up by the HCV Nucleic Acid Amplificationtest (218864) Platelets bldon 10-26-2021 Platelets (Bld) [#/Vol] 217 10*3/uL 150-450 [facility] Work Phone: Serum cyclic citrullinated p eptide IgG antibody assay (units/volume)on 10-26-2021 Cyclic citrullinated peptide IgG Qn 7 units 0-19 [facility] Work Phone: Comment on above: Negative <20 Weak po sitive 20 - 39 Moderate positive 40 - 59 Strong positive >59Performed at: [facility] - [facility] [address] [id number] Director: Mario Richardson MD, Phone: [phone] Serum hepatitis B virus surf dyana antibody IgG detectionon 10-26-2021 HBV surface IgG Ql (S) Reactive [facility] Work Phone: [phone] Comment on above: Non Reactive: Incons istent with immunity less than <10 mIU/mL Reactive: Consistent with immunity greater than or equal to 10 mIU/mL Serum or plasma C reactive p rotein measurement (mass/volume)on 10-26-2021 CRP [Mass/Vol] 3.66 mg/L 0.0-3.0 [facility] Work Phone: Comment on above: C-Reactive Protein ( CRP) provides useful information for thediagnosis, therapy and monitoring of inflammatory processesand associated diseases. For the evaluation of Relative Riskfor Cardiovascular Disease, a High Sensitivity CRP (HSCRP)should be ordered. Serum or plasma albumin jessica urement (mass/volume)on 10-26-2021 Albumin [Mass/Vol] 3.9 g/dL 3.2-5.0 [facility] Work Phone: Serum or plasma albumin/glob ulin mass ratioon 10-26-2021 Albumin/Globulin [Mass ratio] 0.8 {ratio} 0.9-2.4 [facility] Work Phone: Serum or plasma calcium jessica urement (mass/volume)on 10-26-2021 Calcium [Mass/Vol] 8.8 mg/dL 8.5-10.1 [facility] Work Phone: Serum or plasma creatinine m easurement (mass/volume)on 10-26-2021 Creatinine [Mass/Vol] 1.30 mg/dL 0.70-1.30 [facility] Work Phone: Comment on above: The validity of the calculated GFR & GFRAA in patients over 70 years has not been determined. Clinical correlation is essential. Serum or plasma urea nitroge n measurement (mass/volume)on 10-26-2021 Urea nitrogen [Mass/Vol] 28 mg/dL 7-18 [facility] Work Phone: Thin prep Papanicolaou smear with manual screeningon 10-26-2021 Thin prep Papanicolaou smear with manual screening 27 U/L 15-37 [facility] Work Phone: Thin prep Papanicolaou smear with manual screening 9 5-15 [facility] Work Phone: Absolute lymphocyte counton 10-01-2021 Lymphocytes Auto (Unsp spec) [#/Vol] 1.33 10*3/uL 0.83-4.51 [facility] Work Phone: Basophil percentageon 2021 Basophil [facility] > [facility].0 [facility]: Basophils/100 WBC (Bld) 0.1 % 0-1 [facility] Work Phone: Bilirubin [Mass/Vol] 0.60 mg/dL 0.20-1.00 [facility] Work Phone: Comment on above: For patients on eltr ombopag therapy, use of Dim[employer] [place] TBIL is not recommended. Chloride [Moles/Vol] 102 mmol/L 98-107 [facility] Work Phone: Eosinophils/100 WBC (Bld) 2.5 % 0-5 [facility] Work Phone: Glucose [Mass/Vol] 93 mg/dL 74-106 [facility] Work Phone: Neutrophils (Bld) [#/Vol] 4.2 10*3/uL 2.0-7.7 [facility] Work Phone: Neutrophils/100 WBC (Bld) 62.5 % 47-70 [facility] Work Phone: Potassium [Moles/Vol] 3.8 mmol/L 3.5-5.1 [facility] Work Phone: Protein [Mass/Vol] 8.7 g/dL 6.4-8.2 [facility] Work Phone: Sodium [Moles/Vol] 135 mmol/L 136-145 [facility] Work Phone: WBC (Bld) [#/Vol] 6.8 10*3/uL 4.4-11.0 [facility] Work Phone: Blood erythrocytes count (nu mber/volume)on 10-01-2021 RBC (Bld) [#/Vol] 4.24 10*6/uL 4.6-6.2 [facility] Work Phone: Blood hemoglobin measurement (mass/volume)on 10-01-2021 Hemoglobin (Bld) [Mass/Vol] 13.2 g/dL 13.0-16.5 [facility] Work Phone: Blood lymphocytes/100 leukoc yteson 10-01-2021 Lymphocytes/100 WBC (Bld) 19.7 % 19-41 [facility] Work Phone: Blood monocytes/100 leukocyt eson 10-01-2021 Monocytes/100 WBC (Bld) 14.9 % 0-10 [facility] Work Phone: Blood platelet mean volumeon 10-01-2021 Platelet mean volume (Bld) [Entitic vol] 11.2 fL 6.2-12.0 [facility] Work Phone: Determination of erythrocyte mean corpuscular volume (MCV)on 10-01-2021 MCV (RBC) [Entitic vol] 96.2 fL 80-94 [facility] Work Phone: Hematocrit Auto (Bld) [Volum e fraction]on 10-01-2021 Hematocrit (Bld) [Volume fraction] 40.8 % 40-54 [facility] Work Phone: Laboratory - Chemistry and C hemistry - challengeon 10-01-2021 ALP [Catalytic activity/Vol] 54 U/L 45-117 [facility] Work Phone: ALT [Catalytic activity/Vol] 40 U/L 16-61 [facility] Work Phone: CO2 [Moles/Vol] 28.0 mmol/L 21.0-32.0 [facility] Work Phone: Globulin (S) [Mass/Vol] 4.7 g/dL 2.2-4.2 [facility] Work Phone: Urea nitrogen/Creatinine [Mass ratio] 26.2 mg/mg 10-20 [facility] Work Phone: Laboratory - Hematology and Cell countson 10-01-2021 Erythrocyte distribution width (RBC) [Entitic vol] 50.1 fL 35.1-43.9 [facility] Work Phone: Erythrocyte distribution width (RBC) [Ratio] 14.3 % 11.6-14.6 [facility] Work Phone: Immature granulocytes/100 WBC (Bld) 0.300 % 0.0-0.9 [facility] Work Phone: [phone] Comment on above: IG% - Immature Granu locytes (promyelocytes, myelocytes and metamyelocytes) > 1% indicates that a LEFT SHIFT is Present. MCH (RBC) [Entitic mass] 31.1 pg 27.0-32.0 [facility] Work Phone: Nucleated RBC/100 WBC (Bld) [Ratio] 0 % 0-5 [facility] Work Phone: MCHC Auto (RBC) [Mass/Vol]on 10-01-2021 MCHC (RBC) [Mass/Vol] 32.4 g/dL 32-36 [facility] Work Phone: No Panel Informationon 10-01 Centromere B Antibody <0.2 AI [facility] Work Phone: Estimated GFR (MDRD) Amer 70 mL/min >60 [facility] Work Phone: Comment on above: GFR Calc Estimated GFR (MDRD) Non-Af Amer 58 mL/min >60 [facility] Work Phone: Comment on above: Non- GFR Calc FOOD AND BEVERAGE ORDER CLERK Antibody 0.3 AI [facility] Work Phone: Platelets bldon 10-01-2021 Platelets (Bld) [#/Vol] 219 10*3/uL 150-450 [facility] Work Phone: Serum DNA double strand anti body assay (units/volume)on 06-02-2022 DNA double strand Ab Qn (S) 6 [IU]/mL [facility] Work Phone: Comment on above: Negative <5 Equivoca l 5 - 9 Positive >9 Serum Carina-1 antibody assay (u nits/volume)on 10-01-2021 Carina-1 extractable nuclear Ab Qn (S) <0.2 [facility] Work Phone: Serum Scl-70 extractable nuc lear antibody assay (units/volume)on 10-01-2021 SCL-70 extractable nuclear Ab Qn (S) <0.2 [facility] Work Phone: Serum Erickson extractable nucl ear antibody detectionon 10-01-2021 Erickson extractable nuclear Ab Ql (S) 0.4 [facility] Work Phone: Serum or plasma albumin jessica urement (mass/volume)on 10-01-2021 Albumin [Mass/Vol] 4.0 g/dL 3.2-5.0 [facility] Work Phone: Serum or plasma albumin/glob ulin mass ratioon 10-01-2021 Albumin/Globulin [Mass ratio] 0.9 {ratio} 0.9-2.4 [facility] Work Phone: Serum or plasma calcium jessica urement (mass/volume)on 10-01-2021 Calcium [Mass/Vol] 8.9 mg/dL 8.5-10.1 [facility] Work Phone: Serum or plasma creatinine m easurement (mass/volume)on 10-01-2021 Creatinine [Mass/Vol] 1.30 mg/dL 0.70-1.30 [facility] Work Phone: Comment on above: The validity of the calculated GFR & GFRAA in patients over 70 years has not been determined. Clinical correlation is essential. Serum or plasma urea nitroge n measurement (mass/volume)on 10-01-2021 Urea nitrogen [Mass/Vol] 34 mg/dL 7-18 [facility] Work Phone: Serum rheumatoid factor dete ctionon 10-01-2021 Rheumatoid factor Ql (S) 114.0 IU/mL <15 [facility] Work Phone: Thin prep Papanicolaou smear with manual screeningon 10-01-2021 Thin prep Papanicolaou smear with manual screening 28 U/L 15-37 [facility] Work Phone: Thin prep Papanicolaou smear with manual screening 5 5-15 [facility] Work Phone: Basophil percentageon 2021 Creatinine [Mass/Vol] 1.1 mg/dL 0.70-1.30 [facility] Work Phone: No Panel Informationon 09-24 Bedside Estimated GFR (eGFR) > 60.0000 mL/min >60 [facility] Work Phone: Basophil percentageon 2021 Basophil percentage > 8.0 [facility] Work Phone: No Panel Informationon 08-24 Centromere B Antibody <0.2 [facility] Work Phone: FOOD AND BEVERAGE ORDER CLERK Antibody 0.4 [facility] Work Phone: Serum DNA double strand anti body assay (units/volume)on 08-24-2021 DNA double strand Ab Qn (S) 5 [IU]/mL [facility] Work Phone: Comment on above: Negative <5 Equivoca l 5 - 9 Positive >9 Serum Carina-1 antibody assay (u nits/volume)on 08-24-2021 Carina-1 extractable nuclear Ab Qn (S) <0.2 [facility] Work Phone: Serum Scl-70 extractable nuc lear antibody assay (units/volume)on 08-24-2021 SCL-70 extractable nuclear Ab Qn (S) <0.2 [facility] Work Phone: Serum Erickson extractable nucl ear antibody detectionon 08-24-2021 Erickson extractable nuclear Ab Ql (S) 0.4 [facility] Work Phone: 24 hour urine alpha 2 globul in/total protein ratio by electrophoresis (mass fraction)on 08-11-2021 Alpha 2 globulin Elph (24H U) [Mass fraction] 11.9 % [facility] Work Phone: 24 hour urine beta globulin/ total protein ratio by electrophoresis (mass fraction)on 08-11-2021 Beta globulin Elph (24H U) [Mass fraction] 20.2 % [facility] Work Phone: 24 hour urine gamma globulin /total protein ratio by electrophoresis (mass fraction)on 08-11-2021 Gamma globulin Elph (24H U) [Mass fraction] 28.5 % [facility] Work Phone: Absolute lymphocyte counton 08-11-2021 Lymphocytes Auto (Unsp spec) [#/Vol] 1.30 10*3/uL 0.83-4.51 [facility] Work Phone: Alternaria alternata IgE ser umon 08-11-2021 A. alternata IgE Qn (S) <0.10 kU/L Class 0 [facility] Work Phone: Basophil percentageon 2021 Basophils/100 WBC (Bld) 0.3 % 0-1 [facility] Work Phone: Bilirubin [Mass/Vol] 0.50 mg/dL 0.20-1.00 [facility] Work Phone: Comment on above: For patients on eltr ombopag therapy, use of Dimension [place] TBIL is not recommended. Chloride [Moles/Vol] 102 mmol/L 98-107 [facility] Work Phone: Eosinophils/100 WBC (Bld) 2.0 % 0-5 [facility] Work Phone: Glucose [Mass/Vol] 102 mg/dL 74-106 [facility] Work Phone: Comment on above: Fasting Glucose resu lt from 100 to 125 mg/dL suggests IMPAIRED HOMEOSTASIS per A.D.A. criteria. Neutrophils (Bld) [#/Vol] 4.8 10*3/uL 2.0-7.7 [facility] Work Phone: Neutrophils/100 WBC (Bld) 68.2 % 47-70 [facility] Work Phone: Potassium [Moles/Vol] 3.7 mmol/L 3.5-5.[address] [facility] Work [facility]: Protein [Mass/Vol] 8.9 g/dL 6.4-8.2 [facility] Work Phone: Sodium [Moles/Vol] 136 mmol/L 136-145 [facility] Work Phone: WBC (Bld) [#/Vol] 7.0 10*3/uL 4.4-11.0 [facility] Work Phone: Blood erythrocytes count (nu mber/volume)on 08-11-2021 RBC (Bld) [#/Vol] 4.30 10*6/uL 4.6-6.2 [facility] Blood hemoglobin measurement (mass/volume)on 08-11-2021 Hemoglobin (Bld) [Mass/Vol] 13.6 g/dL 13.0-16.5 [facility] Work Phone: Blood lymphocytes/100 leukoc yteson 08-11-2021 Lymphocytes/100 WBC (Bld) 18.7 % 19-41 [facility] Work Phone: Blood monocytes/100 leukocyt eson 08-11-2021 Monocytes/100 WBC (Bld) 10.5 % 0-10 [facility] Work Phone: Blood platelet mean volumeon 08-11-2021 Platelet mean volume (Bld) [Entitic vol] 11.0 fL 6.2-12.0 [facility] Work Phone: Determination of erythrocyte mean corpuscular volume (MCV)on 08-11-2021 MCV (RBC) [Entitic vol] 95.6 fL 80-94 [facility] Work Phone: Hematocrit Auto (Bld) [Volum e fraction]on 08-11-2021 Hematocrit (Bld) [Volume fraction] 41.1 % 40-54 [facility] Work Phone: Laboratory - Chemistry and C hemistry - challengeon 08-11-2021 ALP [Catalytic activity/Vol] 55 U/L 45-117 [facility] Work Phone: ALT [Catalytic activity/Vol] 35 U/L 16-61 [facility] Work Phone: CO2 [Moles/Vol] 27.0 mmol/L 21.0-32.0 [facility] Work Phone: Globulin (S) [Mass/Vol] 4.8 g/dL 2.2-4.2 [facility] Work Phone: Urea nitrogen/Creatinine [Mass ratio] 26.7 mg/mg 10-20 [facility] Work Phone: Laboratory - Hematology and Cell countson 08-11-2021 Erythrocyte distribution width (RBC) [Entitic vol] 47.3 fL 35.1-43.9 [facility] Work Phone: Erythrocyte distribution width (RBC) [Ratio] 13.3 % 11.6-14.6 [facility] Work Phone: Immature granulocytes/100 WBC (Bld) 0.300 % 0.0-0.9 [facility] Work Phone: Comment on above: IG% - Immature Granu locytes (promyelocytes, myelocytes and metamyelocytes) > 1% indicates that a LEFT SHIFT is Present. MCH (RBC) [Entitic mass] 31.6 pg 27.0-32.0 [facility] Work Phone: Nucleated RBC/100 WBC (Bld) [Ratio] 0 % 0-5 [facility] Work Phone: MCHC Auto (RBC) [Mass/Vol]on 08-11-2021 MCHC (RBC) [Mass/Vol] 33.1 g/dL 32-[address] [facility] Work Phone: No Panel Informationon 08-11 Addendum Document Comment [facility] Work Phone: Comment on above: The SPE pattern refl ects a polyclonal increase in gammaglobulin. Hypergammaglobulinemia is found in a wide varietyof infectious, non-infectious, and autoimmune diseasestates. Evidence of monoclonal protein is not apparent. [id number]-1-[id number] 0.2 g/dL [facility] Work Phone: Mutnc-8-Nrjaqjyjl 1.0 g/dL [facility] Work Phone: Anti-Nuclear Antibody Screen Positive Negative [facility] Work Phone: Cat Hair Allergen <0.10 kU/L Class 0 [facility] Work Phone: Common Ragweed (Short) Allergen <0.10 kU/L Class 0 [facility] Work Phone: Comment on above: RAST ZONE 5 PER ORDE R Estimated GFR (MDRD) Amer 69 mL/min >60 [facility] Work Phone: Comment on above: GFR Calc Estimated GFR (MDRD) Non-Af Amer 57 mL/min >60 [facility] Work Phone: Comment on above: Non- GFR Calc Gamma Globulins 2.2 g/dL [facility] Work Phone: Immunoglobulin E 58 IU/mL [facility] Work Phone: Maple ([place]) Allergen IgE Ab TNP [facility] Work Phone: Comment on above: Test not performedTe st not performed. Insufficient specimen to perform orcomplete analysis. Mouse Urine Allergen IgE Antibody <0.10 kU/L Class 0 [facility] Work Phone: RAST Comment Comment [facility] Work Phone: Comment on above: Levels of Specific I gE Class Description of Class ----- < 0.10 0 Negative 0.10 - 0.31 0/I Equivocal/Low 0.32 - 0.55 I Low 0.56 - 1.40 II Moderate 1.41 - 3.90 III High 3.91 - 19.00 IV Very High 19.01 - 100.00 V Very High >100.00 Very High [place] Tree Allergen [facility] Work Phone: Comment on above: Test not performedTe st not performed. Insufficient specimen to perform orcomplete analysis. Platelets bldon 08-11-2021 Platelets (Bld) [#/Vol] 245 10*3/uL 150-450 [facility] Work Phone: Protein Fractions Elph [Inte rp]on 08-11-2021 Protein Fractions [Interp] Comment [facility] Work Phone: Comment on above: Protein electrophore sis scan will follow via computer,mail, or automobile spring repairer delivery. Rough pigweed specific IgE a ntibody assayon 08-11-2021 Rough Pigweed IgE Qn (S) [facility] Work Phone: Comment on above: Test not performedTe st not performed. Insufficient specimen to perform orcomplete analysis. Serum Djiboutian sycamore IgE antibody assay (units/volume)on 08-11-2021 [place]ib[place]ian Mcgregor IgE Qn (S) [facility] Work Phone: Comment on above: Test not performedTe st not performed. Insufficient specimen to perform orcomplete analysis. Serum Aspergillus fumigatus IgE antibody assay (units/volume)on 08-11-2021 A. fumigatus IgE Qn (S) <0.10 kU/L Class 0 [facility] Work Phone: Serum Bermuda grass IgE anti body assay (units/volume)on 08-11-2021 Bermuda grass IgE Qn (S) <0.10 kU/L Class 0 [facility] Work Phone: Serum Cladosporium herbarum IgE antibody assay (units/volume)on 08-11-2021 C. herbarum IgE Qn (S) <0.10 kU/L Class 0 [facility] Work Phone: Serum Dermatophagoides farin ae specific IgE antibody assay (units/volume)on 08-11-2021 [place]ib[place]ian house dust mite IgE Qn (S) <0.10 kU/L Class 0 [facility] Work Phone: Comment on above: RAST ZONE 5 PER ORDE R Serum house dust mi te IgE antibody assay (units/volume)on 08-11-2021 house dust mite IgE Qn (S) <0.10 kU/L Class 0 [facility] Work Phone: Serum Penicillium notatum Ig E antibody assay (units/volume)on 08-11-2021 P. notatum IgE Qn (S) [facility] Work Phone: Comment on above: Test not performedTe st not performed. Insufficient specimen to perform orcomplete analysis. Serum Periplaneta americana IgE antibody assay (units/volume)on 08-11-2021 [place] Cockroach IgE Qn (S) <0.10 kU/L Class 0 [facility] Work Phone: Comment on above: RAST ZONE 5 PER ORDE R Serum Pap[place] thistle specif ic IgE antibody assayon 08-11-2021 Saltwort IgE Qn (S) [facility] Work Phone: Comment on above: Test not performedTe st not performed. Insufficient specimen to perform orcomplete analysis. Serum albumin to globulin ra shawn by protein electrophoresison 08-11-2021 Albumin/Globulin Elph [Mass ratio] 0.9 [facility] Work Phone: Serum birch specific IgE ant ibody assayon 08-11-2021 Silver Birch IgE Qn (S) [facility] Work Phone: Comment on above: Test not performedTe st not performed. Insufficient specimen to perform orcomplete analysis. Serum black walnut IgE antib fatemeh assay (units/volume)on 08-11-2021 [place] IgE Qn (S) [facility] Work Phone: Comment on above: Test not performedTe st not performed. Insufficient specimen to perform orcomplete analysis. Serum cottonwood IgE antibod y assay (units/volume)on 08-11-2021 [place] IgE Qn (S) [facility] Work [facility]: Comment on above: Test not performedTe st not performed. Insufficient specimen to perform orcomplete analysis. Serum dog epithelium IgE ant ibody assay (units/volume)on 08-11-2021 Dog epithelium IgE Qn (S) <0.10 kU/L Class 0 [facility] Work Phone: Comment on above: RAST ZONE 5 PER ORDE R Serum globulin measurement ( mass/volume)on 08-11-2021 Globulin (S) [Mass/Vol] 4.6 g/dL [facility] Work Phone: Serum mountain cedar specifi c IgE antibody assayon 08-11-2021 Mountain Juniper [facility]n (S) [facility]: Comment on above: Test not performedTe st not performed. Insufficient specimen to perform orcomplete analysis. Serum or plasma C reactive p rotein measurement (mass/volume)on 08-11-2021 CRP [Mass/Vol] 5.61 mg/L 0.0-3.0 [facility] Work Phone: Comment on above: C-Reactive Protein ( CRP) provides useful information for thediagnosis, therapy and monitoring of inflammatory processesand associated diseases. For the evaluation of Relative Riskfor Cardiovascular Disease, a High Sensitivity CRP (HSCRP)should be ordered. Serum or plasma albumin jessica urement (mass/volume)on 08-11-2021 Albumin [Mass/Vol] 4.1 g/dL [facility] Work Phone: Serum or plasma albumin/glob ulin mass ratioon 08-11-2021 Albumin/Globulin [Mass ratio] 0.9 {ratio} 0.9-2.4 [facility] Work Phone: Serum or plasma beta globuli n measurement by electrophoresis (mass/volume)on 08-11-2021 Beta globulin Elph [Mass/Vol] 1.2 g/dL [facility] Work Phone: Serum or plasma calcium jessica urement (mass/volume)on 08-11-2021 Calcium [Mass/Vol] 8.6 mg/dL 8.5-10.1 [facility] Work Phone: Serum or plasma creatinine m easurement (mass/volume)on 08-11-2021 Creatinine [Mass/Vol] 1.31 mg/dL 0.70-1.30 [facility] Work Phone: Comment on above: The validity of the calculated GFR & GFRAA in patients over 70 years has not been determined. Clinical correlation is essential. Serum or plasma urea nitroge n measurement (mass/volume)on 08-11-2021 Urea nitrogen [Mass/Vol] 35 mg/dL 7-18 [facility] Work Phone: Serum pecan or hickory nut I gE antibody assay (units/volume)on 08-11-2021 Pecan or [place] Nut IgE Qn (S) [facility] Work Phone: Comment on above: Test not performedTe st not performed. Insufficient specimen to perform orcomplete analysis. Serum rheumatoid factor dete ctionon 08-11-2021 Rheumatoid factor Ql (S) 138.0 IU/mL <15 [facility] Work Phone: Serum sheep sorrel IgE antib fatemeh assay (units/volume)on 08-11-2021 Sheep [place] IgE Qn (S) TNP [facility] Work Phone: Comment on above: Test not performedTe st not performed. Insufficient specimen to perform orcomplete analysis. Serum francisco IgE antibody a ssay (units/volume)on 08-11-2021 [place] IgE Qn (S) <0.10 kU/L Class 0 [facility] Work Phone: Serum white ladarius IgE antibody assay (units/volume)on 08-11-2021 White Ladarius IgE Qn (S) TNP [facility] Work Phone: Comment on above: Test not performedTe st not performed. Insufficient specimen to perform orcomplete analysis. Serum white elm IgE antibody assay (units/volume)on 08-11-2021 White Elm IgE Qn (S) TNP [facility] Work Phone: Comment on above: Test not performedTe st not performed. Insufficient specimen to perform orcomplete analysis. Serum white mulberry IgE ant ibody assay (units/volume)on 08-11-2021 White mulberry IgE Qn (S) TNP [facility] Work Phone: Comment on above: Test not performedTe st not performed. Insufficient specimen to perform orcomplete analysis. Thin prep Papanicolaou smear with manual screeningon 08-11-2021 Thin prep Papanicolaou smear with manual screening 25 U/L 15-37 [facility] Work Phone: Thin prep Papanicolaou smear with manual screening 7 5-15 [facility] Work Phone: Thin prep Papanicolaou smear with manual screening See comment [facility] Work Phone: Comment on above: NOT OBSERVED Total protein bloodon 2021 Protein [Mass/Vol] 8.7 g/dL [facility] Work Phone: Urine albumin/total protein mass ratio by electrophoresison 08-11-2021 Albumin Elph (U) [Mass fraction] 37.5 % [facility] Work Phone: Urine alpha 1 globulin/total protein ratio by electrophoresis (mass fraction)on 08-11-2021 Alpha 1 globulin Elph (U) [Mass fraction] 1.9 % [facility] Work Phone: Urine monoclonal protein/tot al protein mass ratio by electrophoresison 08-11-2021 Protein.monoclonal Elph (U) [Mass fraction] See comment [facility] Work Phone: Comment on above: NOT OBSERVED Urine protein measurement (m ass/volume)on 08-11-2021 Protein (U) [Mass/Vol] 5.7 mg/dL Not Estab. [facility] Work Phone: Basophil percentageon 2021 Bilirubin [Mass/Vol] 0.60 mg/dL 0.20-1.00 [facility] Work Phone: Comment on above: For patients on eltr ombopag therapy, use of Dimension [place] TBIL is not recommended. Chloride [Moles/Vol] 105 mmol/L 98-107 [facility] Work Phone: Glucose [Mass/Vol] 94 mg/dL 74-106 [facility] Work Phone: Potassium [Moles/Vol] 3.8 mmol/L 3.5-5.1 [facility] Work Phone: Protein [Mass/Vol] 9.0 g/dL 6.4-8.2 [facility] Work Phone: Sodium [Moles/Vol] 137 mmol/L 136-145 [facility] Work Phone: Laboratory - Chemistry and C hemistry - challengeon 05-25-2021 ALP [Catalytic activity/Vol] 57 U/L 45-117 [facility] Work Phone: ALT [Catalytic activity/Vol] 35 U/L 16-61 [facility] Work Phone: CO2 [Moles/Vol] 24.0 mmol/L 21.0-32.0 [facility] Work Phone: Free T4 [Mass/Vol] 0.85 ng/dL 0.76-1.46 [facility] Work Phone: Globulin (S) [Mass/Vol] 5.0 g/dL 2.2-4.2 [facility] Work Phone: Urea nitrogen/Creatinine [Mass ratio] 23.1 mg/mg 10-20 [facility] Work Phone: No Panel Informationon 05-25 Estimated GFR (MDRD) Amer 70 mL/min >60 [facility] Work Phone: Comment on above: GFR Calc Estimated GFR (MDRD) Non-Af Amer 58 mL/min >60 [facility] Work Phone: [phone] Comment on above: Non- GFR Calc Thyroid Stimulating Hormone (TSH) 3.64 uIU/mL 0.358-3.74 [facility] Work Phone: Serum or plasma albumin jessica urement (mass/volume)on 05-25-2021 Albumin [Mass/Vol] 4.0 g/dL 3.2-5.0 [facility] Work Phone: Serum or plasma albumin/glob ulin mass ratioon 05-25-2021 Albumin/Globulin [Mass ratio] 0.8 {ratio} 0.9-2.4 [facility] Work Phone: Serum or plasma calcium jessica urement (mass/volume)on 05-25-2021 Calcium [Mass/Vol] 9.1 mg/dL 8.5-10.1 [facility] Work Phone: Serum or plasma creatinine m easurement (mass/volume)on 05-25-2021 Creatinine [Mass/Vol] 1.30 mg/dL 0.70-1.30 [facility] Work Phone: Comment on above: The validity of the calculated GFR & GFRAA in patients over 70 years has not been determined. Clinical correlation is essential. Serum or plasma urea nitroge n measurement (mass/volume)on 05-25-2021 Urea nitrogen [Mass/Vol] 30 mg/dL 7-18 [facility] Work Phone: Thin prep Papanicolaou smear with manual screeningon 05-25-2021 Thin prep Papanicolaou smear with manual screening 27 U/L 15-37 [facility] Work Phone: Thin prep Papanicolaou smear with manual screening 8 5-15 [facility] Work Phone: Provider Note - [...] SIGNS: T PRBP SpO2O2(LPM) %FiO2 Method 01-Feb-2020 14:[id number] MEDICAL DECISION MAKING/ED COURSE MDM/ED COURSE: [...] better. Patient denies the use of any [id number] medications or home remedies prior to arrival [...] normal strength, no tenderness, no swelling. Integumentary: [place], warm, dry, and Intact. Neurologic: Alert, Oriented, [...] ill patient: no Electronic Signatures: Ketan Holliday (ACADEMIC SUPPORT DIRECTOR-BLOOD SPLATTER ANALYST) (Signed 01-Feb-2020 15:02) Authored: HPI, PMH, PE, Results/Vital Signs, MDM/ED Course, Clinical Impression, Attestation, Chart Review, Scores Last Updated: 01-Feb-2020 15:02 by Ketan Holliday (ACADEMIC SUPPORT DIRECTOR-BLOOD SPLATTER ANALYST) Formerly [facility] XR Chest 2 Viewson XR Chest 2 Views Exam Date/Time:2017 08:44 EDTReason for Exam:Shortness of breath (SOB)ReportSTUDY:XR Chest 2 Views; 03/04/2018 8:44 amINDICATION:Shortness of breath (SOB).COMPARISON:None.[facility][id number] 24ORDERING CLINICIAN:Marin JohnsonFINDINGS:CARDI OMEDIASTINAL SILHOUETTE:Cardiomediast inal silhouette is normal in size and configuration.LUNGS:Lung s are clear.No pleural effusion or pneumothorax.ABDOMEN:No remarkable upper abdominal findings.BONES:There is osteopenia with mild multilevel anterior endplate spurring of the spine.IMPRESSION:1. No evidence of acute cardiopulmonary process. FINAL REPORT Dictated: 03/04/2018 9:07 am Cyndi Vance MDigned (Electronic Signature): 03/04/2018 9:07 amSigned by: Tarun Vance MD Technologist: [facility] Office Visit: positive loc reyes 03-30-2017 Documentation of current medications (procedure) Done Invalid Interpretation Code [facility] Work Phone: Fall risk assessment No Invalid Interpretation Code [facility] Work Phone: Tobacco smoking status NHIS Never Invalid Interpretation Code [facility] Work Phone: Tobacco use CPHS Never smoker Invalid Interpretation Code [facility] Work Phone: Vital Signs Date Time Vital Sign Value Performing Clinician Facility 11-27-2024 20:00-0400 Body temperature 99 [degF] Dr. Guilherme Erickson MD Work Phone: [facility] 11-27-2024 20:00-0400 Diastolic blood pressure 71 mm[Hg] Dr. Guilherme Erickson MD Work Phone: [phone] [address] 11-27-2024 20:00-0400 Heart rate 82 /min Dr. Guilherme Erickson MD Work Phone: 6(298)[phone] [place] [address] 11-27-2024 20:00-0400 Respiratory rate 20 /min Dr. Guilherme Erickson MD Work Phone: 4(243)[phone] [address] 11-27-2024 20:00-0400 SaO2% (BldA) [Mass fraction] 95 % Dr. Guilherme Erickson MD Work Phone: 5([phone] [address] 11-27-2024 20:00-0400 Systolic blood pressure 131 mm[Hg] Dr. Guilherme Erickson MD Work Phone: [facility] 11-27-2024 18:58-0400 Body height 162.[address] Guilherme Erickson MD Work Phone: [facility] 11-27-2024 18:58-0400 Body mass index (BMI) [Ratio] 33.5 kg/m2 Dr. Guilherme Erickson MD Work Phone: [facility] 11-27-2024 18:58-0400 Body weight 88.[address] Guilherme Erickson MD Work Phone: [facility] 11-11-2024 09:08-0400 Body height 162.[address] Guilherme Erickson MD Work Phone: [phone] [place] [address] 11-11-2024 09:08-0400 Body mass index (BMI) [Ratio] 34.2 kg/m2 Dr. Guilherme Erickson MD Work Phone: [facility] 11-11-2024 09:08-0400 Body temperature 98.1 [degF] Dr. Guilherme Erickson MD Work Phone: [facility] 11-11-2024 09:08-0400 Body weight 90.[address] Guilherme Erickson MD Work Phone: [facility] 11-11-2024 09:08-0400 Diastolic blood pressure 68 mm[Hg] Dr. Guilherme Erickson MD Work Phone: [facility] 11-11-2024 09:08-0400 Heart rate 84 /min Dr. Guilherme Erickson MD Work Phone: [facility] 11-11-2024 09:08-0400 Respiratory rate 15 /min Dr. Guilherme Erickson MD Work Phone: [facility] 11-11-2024 09:08-0400 SaO2% (BldA) [Mass fraction] 94 % Dr. Guilherme Erickson MD Work Phone: [facility] 11-11-2024 09:08-0400 Systolic blood pressure 142 mm[Hg] Dr. Guilherme Erickson MD Work Phone: [facility] 08-27-2021 12:32-0400 Body height 162.[address] Guilherme Erickson Work Phone: [facility] Work Phone: 08-27-2021 12:32-0400 Body mass index (BMI) [Ratio] 35.6 kg/m2 Dr. Guilherme Erickson Work Phone: [facility] Work Phone: 08-27-2021 12:32-0400 Body temperature 97.9 [degF] Dr. Guilherme Erickson Work Phone: [facility] Work Phone: 08-27-2021 12:32-0400 Body weight 94.[address] Guilherme Erickson Work Phone: [facility] Work Phone: 08-27-2021 12:32-0400 Diastolic blood pressure 76 mm[Hg] Dr. Guilherme Erickson Work Phone: [facility] Work Phone: 08-27-2021 12:32-0400 Heart rate 73 /min Dr. Guilherme Erickson Work Phone: [facility] Work Phone: 08-27-2021 12:32-0400 Respiratory rate 16 /min Dr. Guilherme Erickson Work Phone: [facility] Work Phone: 08-27-2021 12:32-0400 SaO2% (BldA) [Mass fraction] 93 % Dr. Guilherme Erickson Work Phone: [facility] Work Phone: 08-27-2021 12:32-0400 Systolic blood pressure 165 mm[Hg] Dr. Guilherme Erickson Work Phone: [facility] Work Phone: 03-30-2017 10:29-0500 BMI (Body Mass Index) 36.2 kg/m2 Louis Espionza MD [facility] Work Phone: 03-30-2017 10:29-0500 Body Temperature 98 [degF] Louis Espinoza MD [facility] Work Phone: 03-30-2017 10:29-0500 BP Diastolic 80 mm[Hg] Louis Espinoza MD [facility] Work Phone: 03-30-2017 10:29-0500 BP Systolic 187 mm[Hg] Louis Espinoza MD [facility] Work Phone: 03-30-2017 10:29-0500 Height 162.56 cm Louis Espinoza MD [facility] Work Phone: 03-30-2017 10:29-0500 Pulse (Heart Rate) 64 /min Louis Espinoza MD [facility] Work Phone: 03-30-2017 10:29-0500 Respiratory Rate 20 /min Louis Espinoza MD [facility] Work Phone: 03-30-2017 10:29-0500 Weight 95.66 kg Louis Espinoza MD [facility] Work Phone: Encounters Encounter Date Encounter Type Care Provider Facility Start: 11-27-2024 Non-patient / Non-visit Dr. Ketan Parry MD -[facility] Start: 11-27-2024 Evaluation and management of inpatient Dr. Ketan Parry MD -[facility] Work Phone: Start: 11-11-2024 End: 11-11-2024 Patient encounter procedure Tabatha Sanchez [place] -[facility] Work Phone: Start: 11-11-2024 End: 11-11-[address] Guilherme Erickson MD Work Phone: -[facility] Start: 11-08-2024 End: 11-08-[address] Guilherme Erickson MD Work Phone: -Laboratory [facility] Start: 11-08-2024 End: 11-08-[address] Guilherme Erickson MD -[facility] Start: 11-08-2024 End: 11-08-2024 ambulatory Guilherme Erickson Facility:[facility] Start: 05-21-2024 End: 05-21-2024 ambulatory [facility] Facility:[facility] Start: 02-15-2023 End: 02-15-2023 ambulatory [facility] Work Phone: Start: 02-15-2023 End: 02-15-2023 Patient encounter procedure [facility] Start: 10-12-2022 End: 10-12-2022 ambulatory [facility] Work Phone: Start: 10-12-2022 End: 10-12-2022 Patient encounter procedure [facility] Start: 04-15-2022 End: 04-15-2022 ambulatory [facility] Work Phone: Start: 04-15-2022 End: 04-15-2022 Patient encounter procedure [facility] Start: 02-04-2022 End: 02-04-2022 ambulatory [facility] Work Phone: Start: 02-04-2022 End: 02-04-2022 Patient encounter procedure [facility] Start: 10-26-2021 End: 10-26-2021 Patient encounter procedure [facility] Start: 10-01-2021 End: 10-01-[address] Guilherme Erickson Work Phone: [facility] Start: 09-24-2021 End: 09-24-[address] Guilherme Erickson Work Phone: [facility] Start: 09-08-2021 End: 09-08-[address] Guilherme Erickson Work Phone: [facility] Start: 08-27-2021 End: 08-27-[address] [facility] Start: 08-25-2021 Non-patient / Non-visit Dr. Bimal Erickson Work Phone: [facility] Start: 08-25-2021 End: 08-25-[address] Guilherme Erickson Work Phone: [facility]-P[facility] Services/Neurology Start: 08-24-2021 End: 08-24-[address] Guilherme Erickson Work Phone: [facility] Start: 08-20-2021 End: 08-20-2021 Patient encounter procedure [facility] Start: 08-11-2021 End: 08-11-2021 Patient encounter procedure [facility] Start: 05-25-2021 End: 05-25-2021 [facility] Start: 07-15-2020 End: 07-15-2020 Patient encounter procedure RAFAELA ERIC [facility] Start: 03-04-2018 End: 03-05-2018 Patient encounter procedure Marin Pimentel [facility] Facility:[facility] Start: 03-04-2018 Patient encounter procedure Facility:[id number] Procedures [...] of abdomen with contrast Dr. Guilherme Guerra [facility] Work Phone: Start: 09-08-2021 MRI of abdomen with contrast Dr. Guilherme Guerra [facility] Work Phone: Start: 08-20-2021 CT of chest without contrast Start: 08-20-2021 CT of face Start: 03-30-2017 End: 03-30-2017 Colonoscopy flx dx w/collj spec when pfrmd Louis Espinoza MD Work Phone: Start: 03-30-2017 End: 03-30-2017 Esophagogastroduodenoscopy transoral diagnostic Louis Espinoza MD Work Phone: Plan of Treatment Date Care Activity Detail Author Start: 11-27-2024 Laparoscopic appendectomy Laparoscopic, Appendectomy (Not Applicable) [facility] Start: 11-27-2024 Hospital admission, emergency, from emergency room, medical nature [facility] Start: 11-27-2024 End: 11-27-2024 [facility] Start: 11-27-2024 Bacteria identified in Blood by Culture Blood Culture [facility] Start: 11-27-2024 Bacteria identified in Urine by Culture Urine Culture [facility] Start: 03-30-2017 End: 03-30-2017 Colonoscopy flx dx w/collj spec when pfrmd Colonoscopy [facility] [employer] Work Phone: Start: 03-30-2017 End: 03-30-2017 Esophagogastroduodenoscopy transoral diagnostic EGD; diagnostic [facility] [employer] Work Phone: Start: 03-30-2017 End: 03-30-2017 Appointment Appointment [facility] [employer] Work Phone: Urine culture [facility] Immunizations Immunization Date Immunization Notes Care Provider Fa cility 11-09-2022 tetanus toxoid, redu hiren diphtheria toxoid, and acellular pertussis vaccine, adsorbed Dr. Guilherme Erickson MD Work Phone: [facility] 07-15-2020 Covid ([employer]) Dr. Guilherme Erickson MD Work Phone: [facility] 05-08-2007 hepatitis B vaccine, adult dosage Dr. Guilherme Erickson MD Work Phone: [facility] 10-26-2006 hepatitis B vaccine, adult dosage Dr. Guilherme Erickson MD Work Phone: [facility] 09-16-2006 hepatitis B vaccine, adult dosage Dr. Guilherme Erickson MD Work Phone: [facility] Payers Date Payer Category Payer Self-pay [id number] Unknown [id number] 2018 Medicare 2018 Unknown 2014 Medicare [id number] 1950 Unknown [id number] 2.16.84 [id number] 1950 Unknown [id number] 2.16.84 [id number] 1950 Unknown [id number] 2.16. [id number] 1950 Unknown [id number] 2.16.84 [id number] Private Health Insurance [facility] [id number] Unknown [id number] Unknown [id number] 2.16.8 [id number] Unknown [id number] 2.16.8 [id number] Unknown [id number] 2.16.8 [id number] Social History Date Type Detail Facility Tobacco smoking stat us CAIS Unknown if ever smoked [facility] Work Phone: Start: 1950 Sex Assigned At Male [facility] Start: 11-11-2024 End: 11-27-2024 Tobacco smoking status NHIS Never smoked tobacco (finding) [facility] Goals Date Patient Goal Desired Activity /State Discharge summary 11-27-2024 Note Date & Type Note Facility 11-27-2024 Discharge summary Note Date/Time November 27, 2024 6:22pm [facility] Medical Records Department [address] [place] [address] Emergency Department Summary 11/27/24 MR#: [id number] Acct: [id number] Name: DONELL HERRMANN Rep #:[id number] : 1950 74 From: Kal Mcdonald DO [...] tarry stools or blood in his stool. [facility] Medical History Hypothyroidism HTN (hypertension) Home Medications [...] evidence of first-degree AV block with a WI interval of 210. Patient was given dose [...] 84.9 H Lymph % (Auto) 6.0 L [place] % (Auto) 8.0 Eos % (Auto) 0.1 [...] Clarity Clear Urine pH 6.0 Ur Specific [place] 1.015 Urine Protein 100 H Urine Glucose [...] inguinal hernia with bladder herniation. Reading Location: [facility] Discharge Plan Triage Chief Complaint: Abd [...] MD [Primary Care Provider] - Print Language: Somali Disposition Disposition: Acute Care Hospital [facility] What to do if you have Problems For any increased pain, shortness of breath, bleeding, nausea or vomiting, chestpain, or any unexpected problems, contact your Primary Care Provider. Call [facility] ([phone]) or report to the closest Emergency Room. Call 911 if necessary. 11/27/241821 <Electronically signed by Kal Mcdonald DO> Cosigner Signature (if applicable): CC: Dr. Guilherme Erickson MD ~ Signed [facility] Work Phone: History and physical note 11-27-2024 Note Date & Type Note Facility 11-27-2024 History and physi elbert note [facility] Discharge summary 11-27-2024 Note Date & Type Note Facility 11-27-2024 Discharge summary [facility] Radiology Diagnostic study note 11-27-2024 Note Date & Type Note Facility 11-27-2024 Radiology Diagnostic study note [facility] Imaging Services [address], [place] [address] Abdomen/Pelvis W IV Cont ONLY MR#: [id number] Acct: [id number] Name: DONELL HERRMANN Rep #: [id number] : 1950 M 74 From: Lupe French MD PCP: Dr. Guilherme Erickson MD Status: REG ER Study:Abdomen/Pelvis W IV Cont ONLY Date of E xam: 11/27/24 Exam# [id number] Ordering Dr: Servando Mcdonald DO PROCEDURE: ABDOMEN/PELVIS [...] inguinal hernia with bladder herniation. Reading Location: [facility] CC: Dr. Guilherme Erickson MD; Dr. Kal Mcdonald DO ~ Credit Professional: Signed [facility] Evaluation note 11-11-2024 Note Date & Type Note Facility 11-11-2024 Evaluation note Diagnosis Onset Date Resolution Contact dermatitis acute October 302024 10:25am [facility] Work Phone: Evaluation note 11-11-2024 Note Date & Type Note Facility 11-11-2024 Evaluation note Diagnosis Onset Date Resolution Contact dermatitis acute October 302024 10:25am Acute appendicitis acute October 312024 6:39pm [facility] Work Phone: Evaluation note Note Date & Type Note Facility Evaluation note No assessment information availa ble [facility] Work Phone: Evaluation note Note Date & Type Note Facility Evaluation note Diagnosis Onset Date Chronic cough chronic [facility] Work Phone: History and physical note Note Date & Type Note Facility History and physical note Note Date/Time November 27, 2024 8:16pm [facility] Medical Records Department [address] [place] [address] History & Physical Exam 11/27/24 1908 MR#: [id number] Acct: [id number] Name: DONELL HERRMANN Rep #:[id number] : 1950 74 From: Ketan Bruno PCP: Dr. Guilherme Erickson MD Status:ADM [place] [id number] HPI - General General Date of Admission: 11/27/24 Chief Complaint: Acute onset right lower quadrant pain HPI Narrative DONELL HERRMANN, is a 74 M who presents to [facility] with complaints of progressive, acute [...] periappendiceal fluid but no evan abscess formation. [facility] Medical History (Updated 11/27/24 @ 18:59 by [...] (Auto) 84.9 H, Lymph % (Auto) 6.0L, [place] % (Auto) 8.0, Eos % (Auto) 0.1, [...] Clarity Clear, Urine pH 6.0, Ur Specific [place] 1.015, Urine Protein 100 H, Urine Glucose [...] inguinal hernia with bladder herniation. Reading Location: [facility] Assessment & Plan Assessment/Plan (1) Acute [...] Parry MD General Surgery Endocrine Surgery Pager: [facility] [address] [place] [address], [address] [place] [address] Office: [phone] Charges/Coding Visit Charges Inpatient E&M: 07892 Init Hosp L2 11/27/24 1914 <Electronically signed [...] MD; Dr. Ketan Parry MD ~* Signed [facility] Work Phone: Reason for referral (narrative) Note Date & Type Note Facility Reason for referral (narrative) No reason for referral information available [facility] Work Phone: Summary Purpose Family History No Family History Records FoundNo Family History Records FoundNo Family History Records FoundNo Family History Records FoundNo Family History Records Found Advance Directives Advance Directive Response Recorded Date/ Time Do you have a Healthcare Power of Newscast Producer? No November 27, 2024 3:40pm Chief Complaint [...] section and content) DATE CREATED AUTHOR 04/09/2018 [facility] DATE CREATED AUTHOR AUTHOR'S ORGANIZ ATION 04/09/2018 [facility] DATE CREATED AUTHOR AUTHOR'S ORGANIZ ATION 02/08/2020 [facility] DATE CREATED AUTHOR AUTHOR'S ORGANIZ ATION 07/28/2020 [facility] DATE CREATED AUTHOR AUTHOR'S ORGANIZ ATION 11/18/2024 [facility] Goals (unrecognized section and content) Goals [...] BE BASED ON THE PRIMARY CLINICAL RECORDS. [facility]. provides no warranty or guarantee of the accuracy or completeness of information in this document.
[2024-11-28] MEDS: Piperacil/Tazobactam 3.375 GM in 0.9% Normal Saline (50mL MB+) 50 ML IV ×3 (05:36→22:27)
[2024-11-28 06:27] LABS: Hematocrit 37.8 % (40-54); Hemoglobin 12.6 g/dL (13.0-16.5); Immature Granulocytes Count 0.100 X10^3/uL (0.0-0.0); Mean Corp Hgb Conc 33.3 g/dL (32-36); Mean Corpuscular Volume 94.3 fL (80-94); Mean Platelet Vol. 10.8 fl (6.2-12.0); NRBC Flagged by Analyzer 0 % (0-5); Platelet Count 172 K/mm3 (150-450); RBC Distribution Width CV 14.6 % (11.6-14.6); RBC Distribution Width SD 51.1 fl (35.1-43.9); Red Blood Count 4.01 M/mm3 (4.6-6.2); White Blood Count 13.5 K/mm3 (4.4-11.0)
[2024-11-28 06:57] LABS: Anion Gap 15 (5-15); BUN 22 mg/dL (4-19); BUN/Creat Ratio 17.0 RATIO (10-20); Calcium,Total 8.1 mg/dL (7.6-11.0); Carbon Dioxide 19.8 mmol/L (21.0-32.0); Chloride 101 mmol/L (98-108); Estimated Creatinine Clearance 49.97 ml/min (50-250); Glucose 120 mg/dL (70-99); Potassium 3.6 mmol/L (3.3-5.1)
--- NOTE | 2024-11-28 08:49 | PN.SURG_ITS ---
Subjective Subjective Patient evaluated resting comfortably in bed. He notes abdominal pain has improved since yesterday. He denies any nausea, vomiting over night. He notes feeling slightly feverish. He notes belching. No flatus or BM. Objective Data Objective Data Vital Signs: Vital Signs Temp Pulse Resp BP Pulse Ox O2 Del Method O2 Flow Rate 98.4 F 79 17 126/70 H 93 Room Air 2 11/28/24 08:15 11/28/24 08:15 11/28/24 08:15 11/28/24 08:15 11/28/24 08:48 11/28/24 08:48 11/28/24 08:13 Oxygen Flow Rate (L/min) 2 Oxygen Delivery Method Room Air Weight: 194 lb 11.2 oz Body Mass Index (BMI) 33.4 Intake & Output: Intake and Output for Last 24 Hours 11/26/24 11/27/24 11/28/24 23:59 23:59 23:59 Intake Total 2049 / 2049 1047.92 / 1047.92 Output Total / 340 / 340 Balance 1964 / 1964 707.92 / 707.92 Lab / Micro Data 11/28/24 05:49 11/28/24 05:49 Labs: Laboratory Results - last 24 hr 11/27/24 15:40: WBC 17.9 H, RBC 4.39 L, Hgb 13.8, Hct 41.3, MCV 94.1 H, MCH 31.4, MCHC 33.4, RDW Std Deviation 49.5 H, RDW Coeff of [place] 14.3, Plt Count 202, MPV 10.7, Immature Gran % (Auto) 0.800, Neut % (Auto) 84.9 H, Lymph % (Auto) 6.0 L, [place] % (Auto) 8.0, Eos % (Auto) 0.1, Baso % (Auto) 0.2, Absolute Neuts (auto) 15.2 H, Absolute Lymphs (auto) 1.07, Nucleated RBC % 0, PT 14.1, INR 1.1, APTT 29.0, Sodium 134, Potassium 3.5, Chloride 95 L, Carbon Dioxide 23.6, Anion Gap 15, BUN 23 H, Creatinine 1.42 H, Estim Creat Clear Calc 45.09 L, Est GFR (MDRD) Non-Af 52 L, BUN/Creatinine Ratio 16.5, Glucose 111 H, Lactic Acid 1.2, Calcium 9.7, Total Bilirubin 0.95, AST 24, ALT 20, Alkaline Phosphatase 56, Total Protein 9.3 H, Albumin 4.7, Globulin 4.6 H, Albumin/Globulin Ratio 1.0, TSH 2.420, Free T4 1.00, Free T3 pg/dL 2.6 11/27/24 16:05: Urine Color Straw, Urine Clarity Clear, Urine pH 6.0, Ur Specific [place] 1.015, Urine Protein 100 H, Urine Glucose (UA) Normal, Urine Ketones Negative, Urine Occult Blood 50 H, Urine Nitrite Negative, Urine Bilirubin Negative, Urine Urobilinogen Normal, Ur Leukocyte Esterase Negative, Urine RBC 0-5 SEEN, Urine WBC 0-5 SEEN, Ur Squamous Epith Cells 0-5 SEEN, Urine Bacteria 0 SEEN, Urine Mucus 0 SEEN 11/28/24 05:49: WBC 13.5 H, RBC 4.01 L, Hgb 12.6 L, Hct 37.8 L, MCV 94.3 H, MCH 31.4, MCHC 33.3, RDW Std Deviation 51.1 H, RDW Coeff of [place] 14.6, Plt Count 172, MPV 10.8, Immature Gran % (Auto) 0.700, Neut % (Auto) 88.9 H, Lymph % (Auto) 4.5 L, [place] % (Auto) 5.8, Eos % (Auto) 0.0, Baso % (Auto) 0.1, Absolute Neuts (auto) 12.0 H, Absolute Lymphs (auto) 0.61 L, Nucleated RBC % 0, Sodium 136, Potassium 3.6, Chloride 101, Carbon Dioxide 19.8 L, Anion Gap 15, BUN 22 H, Creatinine 1.28 H, Estim Creat Clear Calc 49.97 L, Est GFR (MDRD) Non-Af 58 L, BUN/Creatinine Ratio 17.0, Glucose 120 H, Calcium 8.1 Radiography Diagnostic Testing: Radiology Impression Abdomen/Pelvis CT 11/27/24 15:46 IMPRESSION: Acute appendicitis with significant surrounding inflammation and fluid. No periappendiceal abscess. No bowel obstruction. Moderate right inguinal hernia with bladder herniation. Reading Location: [facility] Physical Exam GI GI Narrative: Abdomen- soft, tenderness in the RLQ. ANTON drain intact with serosanguineous fluid noted Assessment & Plan Assessment/Plan (1) Acute appendicitis: QUALIFIERS: Acute appendicitis type: with generalized peritonitis Appendicitis gangrene presence: with gangrene Appendicitis perforation presence: with perforation Appendicitis abscess presence: with abscess Q ualified Code(s): K35.211 - Acute appendicitis with generalized peritonitis, with perforation and abscess PLAN: I am following this patient in conjunction with Dr. Parry. He will independently evaluate this patient. Labs reviewed. WBC trending down Continue IV antibiotics and fluids Start clear liquids Encourage ambulation and I.S Discussed with patient that he may be hospitalized for approximately 5 days due to ruptured appendicitis with purulence and stool contamination Continue ANTON drain until bowel function returns We will continue to monitor this patient Charges/Coding Visit Charges Inpatient E&M: 03094 Subs Hosp L1 (post-op; no charge)
--- NOTE | 2024-11-28 11:47 | CASEMGMT ---
Dx:perforated appendicitis LACE:2 6-Clicks:22 Medical record reviewed and patient evaluated for identification of discharge planning needs. Based on this review, at this time criteria are not present to indicate a need for discharge planning. Will remain available to assist with discharge planning needs as identified or requested. Currently pt with ANTON drain.
[2024-11-28] MEDS: 0.9% Saline Lock 10 ML Syringe IV (20:22)
[2024-11-29 00:20] VITALS: BP 112/59; PULSE 73; RESP 18; TEMP 37.1; O2SAT 97
[2024-11-29 04:10] VITALS: BP 114/62; PULSE 72; RESP 16; TEMP 37; O2SAT 96
[2024-11-29] MEDS: Piperacil/Tazobactam 3.375 GM in 0.9% Normal Saline (50mL MB+) 50 ML IV ×3 (05:45→21:08)
[2024-11-29 06:18] LABS: Hematocrit 36.9 % (40-54); Hemoglobin 12.0 g/dL (13.0-16.5); Immature Granulocytes Count 0.070 X10^3/uL (0.0-0.0); Mean Corp Hgb Conc 32.5 g/dL (32-36); Mean Corpuscular Volume 97.1 fL (80-94); Mean Platelet Vol. 11.0 fl (6.2-12.0); NRBC Flagged by Analyzer 0 % (0-5); Platelet Count 184 K/mm3 (150-450); RBC Distribution Width CV 14.8 % (11.6-14.6); RBC Distribution Width SD 53.1 fl (35.1-43.9); Red Blood Count 3.80 M/mm3 (4.6-6.2); White Blood Count 11.6 K/mm3 (4.4-11.0)
--- NOTE | 2024-11-29 06:39 | PN.SURG_ITS ---
Subjective Subjective Patient is evaluated resting comfortably in bed. He notes a moderate amount of flatus. He denies nausea, vomiting, fever. He has not had a bowel movement. He has passed flatus. He is tolerating his current clear liquid diet. Objective Data Objective Data Vital Signs: Vital Signs Temp Pulse Resp BP Pulse Ox O2 Del Method O2 Flow Rate 98.6 F 72 16 114/62 96 Room Air 2 11/29/24 04:10 11/29/24 04:10 11/29/24 04:10 11/29/24 04:10 11/29/24 04:10 11/29/24 04:10 11/28/24 16:17 Oxygen Flow Rate (L/min) 2 Oxygen Delivery Method Room Air Weight: 194 lb 11.2 oz Body Mass Index (BMI) 33.4 Intake & Output: Intake and Output for Last 24 Hours 11/27/24 11/28/24 11/29/24 23:59 23:59 23:59 Intake Total 2049 / 2049 3047.92 / 3047.92 50 / 50 Output Total 85 / 85 400 / 400 Balance 1964 / 1964 2647.92 / 2647.92 50 / 50 Lab / Micro Data 11/29/24 05:25 11/29/24 05:25 Labs: Laboratory Results - last 24 hr 11/28/24 05:49: Sodium 136, Potassium 3.6, Chloride 101, Carbon Dioxide 19.8 L, Anion Gap 15, BUN 22 H, Creatinine 1.28 H, Estim Creat Clear Calc 49.97 L, Est GFR (MDRD) Non-Af 58 L, BUN/Creatinine Ratio 17.0, Glucose 120 H, Calcium 8.1 Micro: Microbiology 11/27/24 22:00 Aspirate - Abdominal Gram Stain - Final 11/27/24 22:00 Aspirate - Abdominal Wound Culture - Preliminary GNR lactose nitrocellulose maker Physical Exam GI GI Narrative: Abdomen- soft, distended. Incisions c/d/i. No erythema or infection noted. ANTON drain intact with serosanguineous fluid. Assessment & Plan Assessment/Plan (1) Acute appendicitis: QUALIFIERS: Acute appendicitis type: with generalized peritonitis Appendicitis abscess presence: with abscess Appendicitis gangrene presence: w ith gangrene Appendicitis perforation presence: with perforation Qualified Code(s): K35.211 - Acute appendicitis with generalized peritonitis, with perforation and abscess PLAN: I am following this patient in conjunction with Dr. Parry. He has independently evaluated this patient. Labs reviewed. WBC trending down Continue clear liquids Keep ANTON drain until bowel movement Continue IV antibiotics Continue to encourage ambulation and I.S. We will continue to monitor this patient Charges/Coding Visit Charges Inpatient E&M: 55750 [facility] Hosp L1 (post-op; no charge)
[2024-11-29 06:54] LABS: Anion Gap 12 (5-15); BUN 19 mg/dL (4-19); BUN/Creat Ratio 14.0 RATIO (10-20); Calcium,Total 8.3 mg/dL (7.6-11.0); Carbon Dioxide 21.4 mmol/L (21.0-32.0); Chloride 104 mmol/L (98-108); Estimated Creatinine Clearance 47.03 ml/min (50-250); Glucose 104 mg/dL (70-99); Potassium 3.4 mmol/L (3.3-5.1)
[2024-11-29] MEDS: 0.9% Normal Saline (1000mL) 1,000 ML 125 ML IV (07:27)
[2024-11-29 09:42] VITALS: BP 123/69; PULSE 83; RESP 18; TEMP 36.4; O2SAT 97
[2024-11-29 14:53] VITALS: BP 151/75; PULSE 75; RESP 18; TEMP 36.9; O2SAT 95
[2024-11-29] MEDS: 0.9% Normal Saline (1000mL) 1,000 ML 75 ML IV (16:41)
[2024-11-29 20:20] VITALS: BP 149/77; PULSE 74; RESP 16; TEMP 36.6; O2SAT 98
[2024-11-30 02:45] VITALS: BP 120/62; PULSE 72; RESP 16; TEMP 37; O2SAT 96
[2024-11-30] MEDS: Piperacil/Tazobactam 3.375 GM in 0.9% Normal Saline (50mL MB+) 50 ML IV (05:30)
[2024-11-30] MEDS: 0.9% Normal Saline (1000mL) 1,000 ML 75 ML IV (05:30)
[2024-11-30 06:56] LABS: Hematocrit 37.7 % (40-54); Hemoglobin 12.3 g/dL (13.0-16.5); Immature Granulocytes Count 0.040 X10^3/uL (0.0-0.0); Mean Corp Hgb Conc 32.6 g/dL (32-36); Mean Corpuscular Volume 95.9 fL (80-94); Mean Platelet Vol. 11.5 fl (6.2-12.0); NRBC Flagged by Analyzer 0 % (0-5); Platelet Count 241 K/mm3 (150-450); RBC Distribution Width CV 14.7 % (11.6-14.6); RBC Distribution Width SD 52.4 fl (35.1-43.9); Red Blood Count 3.93 M/mm3 (4.6-6.2); White Blood Count 10.0 K/mm3 (4.4-11.0)
[2024-11-30 07:49] VITALS: BP 137/70; PULSE 71; RESP 18; TEMP 36.6; O2SAT 96
--- NOTE | 2024-11-30 09:42 | PCM.PN.SRG ---
Subjective Subjective Patient seen and examined during AM rounds. Is found sitting out of bed in the chair. He states that he was able to have a small bowel movement earlier this morning and ambulated 3 times yesterday afternoon. He reports that his pain has been minimal and he has not even needed Tylenol for this discomfort. Lastly, he shares resolution of some heartburn/indigestion he had experienced yesterday and reports a stronger appetite today. Objective Data Objective Data Vital Signs: Vital Signs Temp Pulse Resp BP Pulse Ox O2 Del Method O2 Flow Rate 97.9 F 71 18 137/70 H 96 Room Air 2 11/30/24 07:49 11/30/24 07:49 11/30/24 07:49 11/30/24 07:49 11/30/24 07:49 11/30/24 07:55 11/28/24 16:17 Oxygen Flow Rate (L/min) 2 Oxygen Delivery Method Room Air Weight: 194 lb 11.2 oz Body Mass Index (BMI) 33.4 Intake & Output: Intake and Output for Last 24 Hours 11/28/24 11/29/24 11/30/24 23:59 23:59 23:59 Intake Total 3047.92 / 3047.92 2570 / 2570 1011.25 / 1011.25 Output Total 400 / 400 130 / 170 45 / 45 Balance 2647.92 / 2647.92 2440 / 2400 966.25 / 966.25 Lab / Micro Data 11/30/24 05:23 11/29/24 05:25 Labs: Laboratory Results - last 24 hr 11/30/24 05:23: WBC 10.0, RBC 3.93 L, Hgb 12.3 L, Hct 37.7 L, MCV 95.9 H, MCH 31.3, MCHC 32.6, RDW Std Deviation 52.4 H, RDW Coeff of Paloma 14.7 H, Plt Count 241, MPV 11.5, Immature Gran % (Auto) 0.400, Neut % (Auto) 78.0 H, Lymph % (Auto) 11.7 L, Schuyler % (Auto) 7.2, Eos % (Auto) 2.5, Baso % (Auto) 0.2, Absolute Neuts (auto) 7.8 H, Absolute Lymphs (auto) 1.17, Nucleated RBC % 0 Micro: Microbiology 11/27/24 22:00 Aspirate - Abdominal Gram Stain - Final 11/27/24 22:00 Aspirate - Abdominal Wound Culture - Final Escherichia coli 11/27/24 22:00 Aspirate - Abdominal Anaerobic Culture - Preliminary 11/27/24 15:54 Blood Culture (Wb) - Left Hand Blood Culture - Preliminary No growth in 48 hours. 11/27/24 16:05 Urine, Clean Catch Urine Culture - Final Culture exhibits no growth. 11/27/24 15:40 Blood Culture (Wb) - Anticubital Left Blood Culture - Preliminary No growth in 48 hours. Physical Exam Const oriented x3 and no apparent distress Resp normal respiratory effort GI GI Narrative: Improved abdominal distention, mildly tympanic, soft, appropriately tender to palpation with just mild tenderness about port site incisions in right lower quadrant. Suprapubic drain with serous output. Assessment & Plan Assessment/Plan (1) Acute appendicitis: QUALIFIERS: Acute appendicitis type: with generalized peritonitis Appendicitis gangrene presence: with gangrene Appendicitis perforation presence: with perforation Appendicitis abscess presence: with abscess Qualified Code(s): K35.211 - Acute appendicitis with generalized peritonitis, with perforation and abscess PLAN: Patient is postoperative day 3 from laparoscopic appendectomy with partial cecectomy for intraoperative finding of perforated appendicitis. He is clinically improved with minimal abdominal discomfort. He reports ongoing GI function with more regular passage of flatus and additional bowel movement. He also is reporting improved appetite and resolution of some new heartburn that was experienced yesterday. Beyond this subjective assessment, patient's white blood cell count has returned to normal, he has been afebrile, and his drain output has become simply serous in character. With these improvements I will plan to de-escalate his treatment and prepare for discharge home potentially later today. ?Advance to regular diet ?Maintain dressing over ANTON site for 48 hours ?Transition to p.o. Augmentin from IV Zosyn Continue to encourage ambulation and I.S. Dispo: DC to home tentatively set up for this afternoon pending re-evaluation of patient's course after above changes. Please notify surgery of any significant developments. Charges/Coding Visit Charges Inpatient E&M: 54568 Subs Hosp L2
--- NOTE | 2024-11-30 09:49 | PCM.DC ---
Discharge Instructions DC O2, CPAP, BIPAP needs Home O2 Discharge instructions: No Dressing / Incision Discharge Activity: May Drive and May Shower (May shower if drain site is protected from getting wet, otherwise recommend waiting 48 hours additionally and removing that dressing) May shower in (days): 2 Ice area for (Minutes): 20 Lifting Restrictions: No lifting greater than 15 pounds for 2 weeks after surgery Dressing / Incision Call your doctor if your incision/area has: Continuous Slow Oozing, Increased Pain/ Swelling, Increased Redness, Foul Smelling Discharge and Swelling at the incision site Call your doctor if you observe: Fever of 101 or Higher Remove Dressing in: 2 days (Please leave Steri-Strips intact until they fall off spontaneously or are taken off at your follow-up visit. DC drain site dressing 48 hours) Cleanse incision/area with: Soap & Water Follow Up Care Please Follow Up With: Ketan Parry MD When: 10-14 days postop Test Results: Test results from this visit will be discussed in further detail at your follow-up appointment, if applicable. Discharge Plan Admission Admit Date/Time: 11/28/24 11:37 Primary Reason for Your Visit: Perforated appendicitis Attending Provider: Ketan Parry Primary Care Provider: Guilherme Erickson Discharge Orders/Prescriptions Prescriptions: New amoxicillin-pot clavulanate 875-125 mg Tablet 1 tab PO BID 1 Days Qty: 2 0RF Continued chlorthalidone 25 mg tablet 12.5 mg PO DAILY cholecalciferol (vitamin D3) 50 mcg (2,000 unit) capsule 50 mcg PO DAILY niacin 500 mg tablet 500 mg PO QODAY losartan 100 MG tablet 100 mg PO DAILY Patient Comments: BLOOD PRESSURE red yeast rice 600 MG capsule 600 mg PO DAILY levothyroxine 25 mcg tablet 25 mcg PO DAILY omeprazole 20 mg tablet,delayed release (DR/EC) 20 mg PO DAILY Referrals / Follow Up: Guilhreme Erickson MD [Primary Care Provider] - Disposition Disposition (needs filled in before D/C Order can be placed): Home, Self Care
--- NOTE | 2024-11-30 09:54 | PCM.DC.SUM ---
Providers Date of Admission: 11/28/24 Primary Care Physician: Dr. Guilherme Erickson MD Reason For Visit: PERFORATED APPENDICITIS Diagnosis Discharge Diagnosis (1) Acute appendicitis: Status: Acute Code(s): K35.80 - Unspecified acute appendicitis Qualifiers: Acute appendicitis type: with generalized peritonitis Appendicitis abscess presence: with abscess Appendicitis gangrene presence: with gangrene Appendicitis perforation presence: with perforation Qualified Code(s): K35.211 - Acute appendicitis with generalized peritonitis, with perforation and abscess Plan: Patient is postoperative day 3 from laparoscopic appendectomy with partial cecectomy for intraoperative finding of perforated appendicitis. He is clinically improved with minimal abdominal discomfort. He reports ongoing GI function with more regular passage of flatus and additional bowel movement. He also is reporting improved appetite and resolution of some new heartburn that was experienced yesterday. Beyond this subjective assessment, patient's white blood cell count has returned to normal, he has been afebrile, and his drain output has become simply serous in character. With these improvements I will plan to de-escalate his treatment and prepare for discharge home potentially later today. ?Advance to regular diet ?Maintain dressing over ANTON site for 48 hours ?Transition to p.o. Augmentin from IV Zosyn Continue to encourage ambulation and I.S. Dispo: DC to home tentatively set up for this afternoon pending re-evaluation of patient's course after above changes. Please notify surgery of any significant developments. Medications at Discharge Home Medications losartan 100 mg tablet 100 mg PO DAILY 04/06/17 red yeast rice 600 mg capsule 600 mg PO DAILY 04/06/17 chlorthalidone 25 mg tablet 12.5 mg PO DAILY 08/27/21 cholecalciferol (vitamin D3) 50 mcg (2,000 unit) capsule 50 mcg PO DAILY 08/27/21 niacin 500 mg tablet 500 mg PO QODAY 08/27/21 levothyroxine 25 mcg tablet 25 mcg PO DAILY 11/27/24 omeprazole 20 mg tablet,delayed release 20 mg PO DAILY 11/28/24 amoxicillin 875 mg-potassium clavulanate 125 mg tablet 1 tab PO BID 1 day #2 tabs 11/30/24 Hospital Course Operations appendectomy (11/27/2024) Procedures None Summary of Care Provided Hospital Course: Patient is 74-year-old male who was admitted on 11/27/2024 via the ER after he presented with signs and symptoms of acute appendicitis. Given the diagnosis I recommended proceeding for emergent surgical appendectomy. Patient provided his consent and the operation was conducted the same evening. Intraoperatively I confirmed the presence of perforated appendicitis and patient was admitted postoperatively for ongoing IV antibiotic administration as well as monitoring for development of a postoperative ileus. With the latter concern, I was conservative with administration of the diet, but patient had a relatively uneventful course with just some abdominal distention that improved as he experienced return of bowel function and his diet was gradually advanced. He was maintained on IV antibiotics and we noted the normalization of his white blood cell count as well as his fever curve. Further, drain placed intraoperatively cleared for the character of its output. With these clinical improvements IV antibiotics were discontinued in favor of transition to oral antibiotics. He was also given a regular diet and his drain was discontinued on postoperative day 3. He tolerated these final inpatient therapy changes well and was thus granted discharge to home later the same day. Outpatient follow-up expectation was previously discussed along with ongoing care instructions. Physical Exam Const alert, oriented x3 and no apparent distress Resp normal respiratory effort GI GI Narrative: Minimally distended, soft, appropriately tender to palpation, Steri-Strips still intact. Dressing over suprapubic drain site. Weight / BMI Weight Weight: 194 lb 11.2 oz Body Mass Index (BMI) 33.4 ABG / Lab / Microbiology Data 11/30/24 05:23 11/29/24 05:25 Laboratory: Laboratory Results - last 24 hr 11/30/24 05:23: WBC 10.0, RBC 3.93 L, Hgb 12.3 L, Hct 37.7 L, MCV 95.9 H, MCH 31.3, MCHC 32.6, RDW Std Deviation 52.4 H, RDW Coeff of Paloma 14.7 H, Plt Count 241, MPV 11.5, Immature Gran % (Auto) 0.400, Neut % (Auto) 78.0 H, Lymph % (Auto) 11.7 L, Motley % (Auto) 7.2, Eos % (Auto) 2.5, Baso % (Auto) 0.2, Absolute Neuts (auto) 7.8 H, Absolute Lymphs (auto) 1.17, Nucleated RBC % 0 Microbiology: Microbiology 11/27/24 22:00 Aspirate - Abdominal Gram Stain - Final 11/27/24 22:00 Aspirate - Abdominal Wound Culture - Final Escherichia coli 11/27/24 22:00 Aspirate - Abdominal Anaerobic Culture - Preliminary 11/27/24 15:54 Blood Culture (Wb) - Left Hand Blood Culture - Preliminary No growth in 48 hours. 11/27/24 16:05 Urine, Clean Catch Urine Culture - Final Culture exhibits no growth. 11/27/24 15:40 Blood Culture (Wb) - Anticubital Left Blood Culture - Preliminary No growth in 48 hours. D/C Instructions May shower in (days): 1 Ice area for (Minutes): 20 Call your doctor if your incision/area has: Continuous Slow Oozing, Increased Pain/ Swelling, Increased Redness, Foul Smelling Discharge and Swelling at the incision site Call your doctor if you observe: Fever of 101 or Higher Cleanse incision/area with: Soap & Water DC O2, CPAP, BIPAP Needs Home O2 Discharge instructions: No Please Follow Up With: Ketan Parry MD When: 7-10days postop Meaningful Use Info Meaningful Use Meaningful Use Diagnoses (Choose all that apply): None applicable Discharge Plan Admission Admit Date/Time: 11/28/24 11:37 Primary Reason for Your Visit: Perforated appendicitis Attending Provider: Ketan Parry Primary Care Provider: Guilherme Erickson Discharge Orders/Prescriptions Prescriptions: New amoxicillin-pot clavulanate 875-125 mg Tablet 1 tab PO BID 1 Days Qty: 2 0RF Continued chlorthalidone 25 mg tablet 12.5 mg PO DAILY cholecalciferol (vitamin D3) 50 mcg (2,000 unit) capsule 50 mcg PO DAILY niacin 500 mg tablet 500 mg PO QODAY losartan 100 MG tablet 100 mg PO DAILY Patient Comments: BLOOD PRESSURE red yeast rice 600 MG capsule 600 mg PO DAILY levothyroxine 25 mcg tablet 25 mcg PO DAILY omeprazole 20 mg tablet,delayed release (DR/EC) 20 mg PO DAILY Referrals / Follow Up: Guilherme Erickson MD [Primary Care Provider] - Disposition Disposition (needs filled in before D/C Order can be placed): Home, Self Care Charges/Coding Visit Charges Inpatient E&M: 34874 Disch Hosp
[2024-11-30 16:14] LABS: Anion Gap 15 (5-15); BUN 18 mg/dL (4-19); BUN/Creat Ratio 14.4 RATIO (10-20); Calcium,Total 8.7 mg/dL (7.6-11.0); Carbon Dioxide 20.0 mmol/L (21.0-32.0); Chloride 104 mmol/L (98-108); Estimated Creatinine Clearance 51.58 ml/min (50-250); Glucose 99 mg/dL (70-99); Potassium 3.5 mmol/L (3.3-5.1)
== END 2024-11-30 15:45 | disposition home or self-care (01) | DRG 331 ==
LOC: ED 18:22 → MS3 19:29
PROVIDERS: Physician Assistant; Admitting Provider Surgery; Emergency Provider Emergency Medicine; PCP Family Medicine; Visit Provider Surgery
PROC: 0DTJ4ZZ Resection of Appendix, Percutaneous Endoscopic Approach (ICD-10-PCS; CPT 44970; principal; 2024-11-27 20:30)
DX: K35.211 Acute appendicitis with generalized peritonitis, with perforation and abscess (principal); E03.9 Hypothyroidism, unspecified; E66.01 Morbid (severe) obesity due to excess calories; I10 Essential (primary) hypertension; K42.9 Umbilical hernia without obstruction or gangrene; K40.20 Bilateral inguinal hernia, without obstruction or gangrene, not specified as recurrent; Z79.899 Other long term (current) drug therapy; Z68.33 Body mass index [BMI] 33.0-33.9, adult
CPT/HCPCS: 36415; 74177; 80048; 80053; 81001; 83605; 84439; 84443; 84481; 85025; 85610; 85730; 87040; 87070; 87075; 87077; 87086; 87186; 87205; 88304; 93005; 99285; Q9967; A4216; J2405

== ENCOUNTER → 2025-02-11 | Outpatient (CLI) | payer MEDICARE, SELFPAY | END | disposition home or self-care (01) | LOC: LABSPEC 09:50 | PROVIDERS: PCP Family Medicine; Referring Provider Surgery; Visit Provider Surgery | DX: K40.90 Unilateral inguinal hernia, without obstruction or gangrene, not specified as recurrent (principal) | CPT/HCPCS: 87081 ==

== ENCOUNTER 2025-04-04 05:58 | Day surgery (SDC) | payer MEDICARE, SELFPAY ==
--- NOTE | 2025-03-27 08:42 | EKG12_ITS ---
Test Reason : PRE OP Blood Pressure : */* mmHG Vent. Rate : 67 BPM Atrial Rate : 67 BPM P-R Int : 220 ms QRS Dur : 84 ms QT Int : 396 ms P-R-T Axes : 36 -2 34 degrees QTcB Int : 418 ms Sinus rhythm with marked sinus arrhythmia with 1st degree A-V block Otherwise normal ECG Confirmed by BIJAN BLUE, HORACIO ([id number]), video editor DARLYN JOE ([id number]) on 03/27/2025 1:56:53 PM Referred By: Ketan Parry Confirmed By: HORACIO THAKKAR MD
--- NOTE | 2025-03-27 11:15 | PAT.ANE_ITS ---
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 When Was Last Pacemaker Check QUESTION #4 FULL TEXT: You/Your Family Experience fever (hyperthermia) with Anesthesia Last Oral Intake Last Oral intake: Last Oral Intake NPO since Meds taken in AM with sips of water? Meds patient instructed to take am of surgery PONV PONV - knockout machine operator: PONV - knockout machine operator Female No 03/21/25 09:05 HX of Motion Sickness No 03/21/25 09:05 HX of N/V After Surgery No 03/21/25 09:05 Non-Smoker Yes 03/21/25 09:05 Duration of Surgery greater Yes 03/21/25 09:05 than 60 minutes Number of Risk Factors 2 03/21/25 09:05 PONV Score Moderate Risk 03/21/25 09:05 Height & Weight Height & Weight: Anesthesia: Height & Weight Height 5 ft 4 in 02/11/25 08:50 Respiratory Assessment Respiratory Assessment - knockout machine operator: Respiratory Tract Infection Hx - knockout machine operator Hx Respiratory Tract Infection No 03/21/25 09:05 STOP Sleep Apnea STOP Sleep Apnea - knockout machine operator: STOP Sleep Apnea - knockout machine operator Hx Hypertension Yes: on meds 03/21/25 09:05 Hx Sleep Apnea No 03/21/25 09:05 CPAP BIPAP Do you snore loudly (louder Yes 03/21/25 09:05 than talking or can be heard Do you often feel tired/ No 03/21/25 09:05 fatigued/ sleepy during daytime? Has anyone observed you stop No 03/21/25 09:05 breathing during sleep? STOP Results Positive 03/21/25 09:05 QUESTION #5 FULL TEXT : Do you snore loudly (louder than talking or can be heard through closed doors)? 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 Specify any problems Hx of Preganancy in last 3 N/A 03/21/25 09:05 Months Nurse Filling Out Transfusion JZOLLINGE 03/21/25 09:05 & Questions: Date: 03/21/25 03/21/25 09:05 Time: 09:07 03/21/25 09:05 Patient unable to answer at this time (ie. confused, unrespo /Reproduction History /Reproductive History - knockout machine operator: /Reproductive Hx- knockout machine operator Hx Now No 03/21/25 09:05 Gestational Age (in weeks): EDC: Hx Hx Para Hx Section SAB No 03/21/25 09:05 Does the father of the baby or his family experience fever w Father of the baby Malignant Hypertension history comment [facility] Medical History (Updated 03/21/25 @ 09:04 by Julia Metcalf) Thyroid disease Arthritis Heartburn Right inguinal hernia Non-smoker Hernia GERD (gastroesophageal reflux disease) Hypothyroidism HTN (hypertension) Home Medications ?Medication ?Instructions ?Recorded ?Last Taken ?Type losartan 100 mg tablet 100 mg PO DAILY 04/06/17 History red yeast rice 600 mg capsule 600 mg PO DAILY 04/06/17 11/27/24 History chlorthalidone 25 mg tablet 12.5 mg PO DAILY 08/27/21 11/27/24 History cholecalciferol (vitamin D3) 50 50 mcg PO DAILY 11/27/24 History mcg (2,000 unit) capsule niacin 500 mg tablet 500 mg PO QODAY 08/27/21 History levothyroxine 25 mcg tablet 25 mcg PO DAILY 11/27/24 0 11/27/24 History omeprazole 20 mg tablet,delayed 20 mg PO DAILY PRN hea rtburn 11/28/24 Unknown History release super beets 1 gummy PO .qd 03/21/25 Unkn own History Allergy/AdvReac Type Severity Reaction Status Date / Time pneumococcal vaccine (From AdvReac rash on Verified 03/21/25 08:53 Pneumovax-23) arms Surgical History (Updated 03/21/25 @ 09:04 by Julia Metcalf) Hx of colonoscopy with polypectomy S/P appendectomy Social History Smoking Status: Never smoker alcohol intake: never substance use type: does not use Audit: Pertinent Findings Pertinent Findings EKG Perinent findings: Sinus rhythm with marked sinus arrhythmia with 1st degree A-V block Otherwise normal ECG When compared with ECG of 27-Nov-2024 15:41, No significant change was found Recommendation Anesthesia Recommendation Anesthesia recommendation: F/U recommended (Dr. Parry in his 02/11/2025 note wrote Preoperative risk assessment with Dr. Erickson on March 11. - please advise regarding this)
[2025-03-27 11:33] LABS: Anion Gap 14 (5-15); BUN 30 mg/dL (4-19); BUN/Creat Ratio 20.0 RATIO (10-20); Calcium,Total 9.4 mg/dL (7.6-11.0); Carbon Dioxide 22.9 mmol/L (21.0-32.0); Chloride 101 mmol/L (98-108); Glucose 102 mg/dL (70-99); Potassium 4.8 mmol/L (3.3-5.1)
--- NOTE | 2025-03-27 12:56 | PAT.ANESEVAL ---
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 When Was Last Pacemaker Check QUESTION #4 FULL TEXT: You/Your Family Experience fever (hyperthermia) with Anesthesia Last Oral Intake Last Oral intake: Last Oral Intake NPO since Meds taken in AM with sips of water? 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 draftsman Female No 03/21/25 09:05 HX of Motion Sickness No 03/21/25 09:05 HX of N/V After Surgery No 03/21/25 09:05 Non-Smoker Yes 03/21/25 09:05 Duration of Surgery greater Yes 03/21/25 09:05 than 60 minutes Number of Risk Factors 2 03/21/25 09:05 PONV Score Moderate Risk 03/21/25 09:05 Height & Weight Height & Weight: Anesthesia: Height & Weight Height 5 ft 4 in 02/11/25 08:50 Respiratory Assessment Respiratory Assessment - autocad draftsman: Respiratory Tract Infection Hx - autocad draftsman Hx Respiratory Tract Infection No 03/21/25 09:05 STOP Sleep Apnea STOP Sleep Apnea - autocad draftsman: STOP Sleep Apnea - autocad draftsman Hx Hypertension Yes: on meds 03/21/25 09:05 Hx Sleep Apnea No 03/21/25 09:05 CPAP BIPAP Do you snore loudly (louder Yes 03/21/25 09:05 than talking or can be heard Do you often feel tired/ No 03/21/25 09:05 fatigued/ sleepy during daytime? Has anyone observed you stop No 03/21/25 09:05 breathing during sleep? STOP Results Positive 03/21/25 09:05 QUESTION #5 FULL TEXT : Do you snore loudly (louder than talking or can be heard through closed doors)? 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 Specify any problems Hx of Preganancy in last 3 N/A 03/21/25 09:05 Months Nurse Filling Out Transfusion JZOLLINGE 03/21/25 09:05 & Questions: Date: 03/21/25 03/21/25 09:05 Time: 09:07 03/21/25 09:05 Patient unable to answer at this time (ie. confused, unrespo /Reproduction History /Reproductive History - autocad draftsman: /Reproductive Hx- autocad draftsman Hx Now No 03/21/25 09:05 Gestational Age (in weeks): EDC: Hx Hx Para Hx Section SAB No 03/21/25 09:05 Does the father of the baby or his family experience fever w Father of the baby Malignant Hypertension history comment [facility] Medical History (Updated 03/21/25 @ 09:04 by Julia Metcalf) Thyroid disease Arthritis Heartburn Right inguinal hernia Non-smoker Hernia GERD (gastroesophageal reflux disease) Hypothyroidism HTN (hypertension) Home Medications ?Medication ?Instructions ?Recorded ?Last Taken ?Type losartan 100 mg tablet 100 mg PO DAILY 04/06/17 11/24/24 History red yeast rice 600 mg capsule 600 mg PO DAILY 04/06/17 11/27/24 History chlorthalidone 25 mg tablet 12.5 mg PO DAILY 08/27/21 11/27/24 History cholecalciferol (vitamin D3) 50 50 mcg PO DAILY 08/27/21 11/27/24 History mcg (2,000 unit) capsule niacin 500 mg tablet 500 mg PO QODAY 08/27/21 11/26/24 History levothyroxine 25 mcg tablet 25 mcg PO DAILY 11/27/24 11/27/24 History omeprazole 20 mg tablet,delayed 20 mg PO DAILY PRN heartburn 11/28/24 Unknown History release super beets 1 gummy PO .qd 03/21/25 Unknown History Allergy/AdvReac Type Severity Reaction Status Date / Time pneumococcal vaccine (From AdvReac rash on Verified 03/21/25 08:53 Pneumovax-23) arms Surgical History (Updated 03/21/25 @ 09:04 by Julia Metcalf) Hx of colonoscopy with polypectomy S/P appendectomy Social History Smoking Status: Never smoker alcohol intake: never substance use type: does not use Audit: Pertinent Findings HISTORY of Pertinent Findings History of Pertinent Findings: EKG Pertinent Findings EKG Perinent findings Sinus rhythm with marked 03/27/25 11:17 sinus arrhythmia with 1st degree A-V block Otherwise normal ECG When compared with ECG of 15:41, No significant change was found Recommendation Anesthesia Recommendation Anesthesia recommendation: OPTIMIZED for anesthesia (Cleared by PCP)
[2025-04-04] VITALS (13 sets, daily range): BP systolic 110–142; BP diastolic 63–83; PULSE 80–100; RESP 16–18; TEMP 36.1–36.9; O2SAT 87–100; BMI 33.2
--- OUTSIDE RECORDS SUMMARY | 2025-04-04 06:01 | XMS RPT_ITS | CCD ---
Author Organization [facility] Care Team Providers Care Materials Technician Name Role Phone Alexis BLUE, Louis Bruno Unavailable Marin Johnson Unavailable Unavailabl e Alex, Marin S Unavailable Unavailabl Guilherme Tanner Unavailable Unavailable Marin Johnson Unavailable Unavailabl e Marin Johnson Unavailable Unavailabl e Guilherme Erickson Unavailable Unavailable RAFAELA ERIC Attending Unavailable RAFAELA ERIC Primary Care Unavailable RAFAELA ERIC Admitting Unavailable Dr. Guilherme Erickson Primary Care Provider [phone] Dr. Guilherme Erickson Referring Provider Dr. Guilherme Erickson Other Provider Dr. Julio Mccall Attending Provider Dr. Yonas Johnson Attending Provider Dr. Guilherme Erickson MD Primary Care Provider Dr. Guilherme Erickson MD Attending Provider Dr. Guilherme Erickson MD Referring Provider [phone] Tabatha Muniz Attending Provider [phone] Dr. Kal Mcdonald DO Emergency Provider Dr. Ketan Parry MD Admit Provider Dr. Ketan Parry MD Attending Provider Dr. Ketan Parry MD Other Provider Dr. Kal Mcdonald DO Emergency Provider Dr. Ketan Parry MD Admit Provider Dr. Ketan Parry MD Attending Provider [phone] Mo MEDEROS, [place] Attending Provider Dre BLUE, Dr. Vanegas Primary Care Physician Dre BLUE, Dr. Vanegas Attending Physician Tabatha Muniz Attending Physician Tamara STEWART, Dr. Bowden Emergency Department Physic steffany Sohan BLUE, Dr. Aceves Admitting Physician Sohan BLUE, Dr. Aceves Attending Physician Sohan BLUE, Dr. Aceves Nurse Practitioner [phone] Mo MEDEROS, [place] Attending Physician Sohan BLUE, Dr. Aceves Referring Provider Ketan Parry Consulting Unavailable Erickson, Guilherme Primary Care Unavailable Ketan Parry Attending Unavailable Ketan Parry Admitting Unavailable Erickson, Guilherme Attending Unavailable Erickson, Guilherme Referring Unavailable Erickson, Guilherme Primary Care Unavailable Erickson, Guilherme Attending Unavailable Erickson, Guilherme Primary Care Unavailable Erickson, Guilherme Referring Unavailable Erickson, Guilherme Primary Care Unavailable Ketan Parry Attending Unavailable Ketan Parry Referring Unavailable Erickson, Guilherme Primary Care Unavailable Ketan Parry Attending Unavailable Erickson, Guilherme Primary Care Unavailable Ketan Parry Attending Unavailable Sohan, Ketan Admitting Unavailable Shawnee Wall Attending Unavailable Erickson, Guilherme Referring Unavailable Erickson, Guilherme Primary Care Unavailable Tabatha Muniz Attending Unavail able Erickson, Guilherme Referring Unavailable Erickson, Guilherme Primary Care Unavailable Erickson, Guilherme Referring Unavailable Erickson, Guilherme Primary Care Unavailable Ketan Parry Attending Unavailable Erickson, Guilherme Primary Care Unavailable Ketan Parry Attending Unavailable Ketan Parry Admitting Unavailable Ketan Parry Consulting Unavailable Shawnee Wall Attending Unavailable Shawnee Wall Attending Unavailable Erickson, Guilherme Primary Care Unavailable Ketan Parry Admitting Unavailable Ketan Parry Consulting Unavailable Allergies Allergy Classification Reported Allergen(s) Allergy Type Date of Onset Reaction(s) Facility (16 sources) Pneumococcal vaccine Drug Allergy 08-27-2021 rash on arms [facility] (1 source) Pneumococcal vaccine Drug Allergy 02-11-2025 [facility] Repository Medications Current Medications Medication Drug Class(es) Dates Sig (Normalized) Sig (Original) chlorthalidone 25 mg oral tablet (16 sources) Thiazide-like Diuretic Start: 08-27-2021 Start: 08-27-2021 take 12.5 mg by mout h once daily Chlorthalidone Active 12.5 MG PO DAILY August 27, 2021 12:00am cholecalciferol 0.05 mg oral capsule (16 sources) Vitamin D Start: 08-27-2021 take 1 capsule by mouth once daily levothyroxine sodium 0.025 m g oral tablet (20 sources) l-Thyroxine Start: 11-27-2024 take 1 tablet by josh th once daily Start: 08-27-2021 End: 11-27-2024 take 1 capsule by mouth once daily Levothyroxine 25 mcg capsule Discontinued 25 ug PO DAILY August 27, 2021 12:00am November 27, 2024 3:41pm losartan potassium 100 mg oral tablet (19 sources) Angiotensin 2 Receptor Karis Start: 04-06-2017 take 1 tablet by mouth once daily Start: 03-30-2017 take 1 tablet by josh th once daily LOSARTAN POTASSIUM 100 MG TABS One tablet by mouth daily LOSARTAN POTASSIUM [id number] Louis Espinoza MD niacin 500 mg oral tablet (16 sources) Nicotinic Acid Start: 08-27-2021 take 1 tablet by mouth every other day omeprazole 20 mg delayed release oral tablet (20 sources) Proton Pump Inhibitor Start: 11-28-2024 take 1 tablet by mouth once daily Start: 04-06-2017 End: 08-27-2021 take 1 capsule by mouth once daily as needed for gastroesophageal reflux disease Omeprazole 20 MG capsule Discontinued 20 mg PO DAILY NEEDED as needed for Heartburn April 06, 2017 1:00am August 27, 2021 12:38pm Start: 03-30-2017 take 1 tablet by mouth once da vivek OMEPRAZOLE 20 MG CPDR One tablet by mouth daily OMEPRAZOLE [id number] Louis Espinoza MD red yeast rice 600 mg oral capsule (19 sources) Start: 04-06-2017 take 1 capsule by mo uth once daily Start: 03-30-2017 take 1 tablet by josh th once daily RED YEAST RICE 600 MG CAPS One tablet by mouth daily RED YEAST RICE EXTRACT [id number] Louis Espinoza MD Completed/Discontinued Medications Medication Drug Class(es) Dates Sig (Normalized) Sig (Original) amoxicillin 875 mg / clavulanate 125 mg oral tablet (3 sources) Penicillin-class Antibacterial Start: 11-30-2024 End: 12-10-2024 Amoxicillin-Pot Clavulanate 875-125 mg Tablet Discontinued 1 {tbl} PO TWICE A DAY 2 1 0 November 30, 2024 12:00am December 10, 2024 10:18am ezetimibe 10 mg oral tablet (16 sources) Dietary Cholesterol Absorption Inhibitor Start: 08-27-2021 End: 11-27-2024 take 1 tablet by mouth once daily Ezetimibe 10 mg tablet Discontinued 10 mg PO DAILY August 27, 2021 12:00am November 27, 2024 4:48pm famotidine 20 mg oral tablet (16 sources) Histamine-2 Receptor Antagonist Start: 08-27-2021 End: 11-27-2024 take 1 tablet by mouth at bedtime Famotidine 20 mg tablet Discontinued 20 mg PO AT BEDTIME August 27, 2021 12:00am November 27, 2024 4:48pm hydrocortisone 0.025 mg/mg topical ointment (16 sources) Corticosteroid Start: 08-27-2021 End: 11-27-2024 Hydrocortisone 2.5 % ointment Discontinued 1 NMA TOPICAL 2 to 3 times per day as needed August 27, 2021 12:00am November 27, 2024 4:48pm predniSONE 10 mg oral tablet (6 sources) Start: 11-11-2024 End: 11-27-2024 Prednisone 10 mg tablet Discontinued 10 mg PO .COMPLEX 30 0 November 11, 2024 12:00am November 27, 2024 4:49pm Take 4 pills for 3 days, 3 pills for 3 days, 2 pills for 3 days, take 1 pill for 3 days Problems Active Problems Problem Classification Problem Date Documented Date Episodic/Chronic Abdominal hernia (6 sources) Bilateral inguinal hernia; Translations: [Bilateral inguinal hernia, without obstruction or gangrene, not specified as recurrent] Onset: 02-26-2025 02-11-2025 Episodic Comment on above: - CT imaging demonst rates right and left inguinal hernias and a 3 cm umbilical hernia with diastasis recti.- Discussed surgical repair options, including minimally invasive robotic repair of bilateral inguinal hernias with mesh placement, and optional concurrent umbilical hernia repair.- Reviewed risks (infection, mesh complications, nerve injury, recurrence), benefits (single recovery period, reduced risk of bowel incarceration/obstruction), and alternatives; patient and spouse verbalized understanding.- Advised 5-week restriction on lifting >10 lbs postoperatively; emphasized importance of early ambulation to reduce DVT risk.- Advised aggressive management of constipation and avoidance of straining postoperatively.- Nasal swab for Staphylococcus aureus colonization to be performed today; if positive, will treat with mupirocin ointment and Hibiclens wash for 5 days preoperatively.- EKG to be completed prior to surgery.- Preoperative risk assessment with Dr. Erickson on March 11.- Surgery to be scheduled for late March or early April. Allergic reactions (10 sources) Contact dermatitis; Translations: [Unspecified contact dermatitis, unspecified cause] 11-11-2024 Episodic Appendicitis and other appendiceal conditions (10 sources) Acute appendicitis; Translations: [Unspecified acute appendicitis] Onset: 12-17-2024 11-27-2024 Episodic Appendicitis and other appendiceal conditions (1 source) Appendicitis and other appendiceal conditions; Translations: [Acute appendicitis with generalized peritonitis, with perforation and abscess] Onset: 12-05-2024 Chronic kidney disease (1 source) Chronic kidney disease; Translations: [Chronic kidney disease, stage 3a] Onset: 06-07-2024 Esophageal disorders (19 sources) Gastroesophageal reflux disease; Translations: [Gastro-esophageal reflux disease without esophagitis] Onset: 03-30-2017 03-30-2017 Chronic Essential hypertension (7 sources) Hypertensive disorder; Translations: [Essential (primary) hypertension] Onset: 03-30-2017 03-30-2017 Chronic Osteoarthritis (1 source) Osteoarthritis; Translations: [Unspecified osteoarthritis, unspecified site] Onset: 03-30-2017 03-30-2017 Chronic Other lower respiratory disease (20 sources) Chronic cough; Translations: [Chronic cough] Episodic Thyroid disorders (6 sources) Hypothyroidism; Translations: [Hypothyroidism, unspecified] 11-11-2024 Chronic Past or Other Problems Problem Classification Problem Date Documented Da te Episodic/Chronic Hemorrhoids (1 source) Hemorrhoids; Translations: [Unspecified hemorrhoids] Onset: 03-30-2017 03-30-2017 Episodic Other gastrointestinal disorders (1 source) Fecal occult blood: positive ; Translations: [Other fecal abnormalities] Onset: 03-30-2017 03-30-2017 Episodic Other screening for suspected conditions (not mental disorders or infectious disease) (19 sources) Patient encounter status; Translations: [Encounter for screening for malignant neoplasm of colon] Onset: 11-14-2024 04-06-2017 Episodic Results Test Name Value Interpretation Reference Range Facility MRSA/SAID NASAL SCREENon MRSA+SAID SCRN Reason for Exam: Pre op nasal swab MRSA MRSA Negative S. AUREUS S. aureus Negative Normal [facility] Comment on above: Performed By: #### M 100.4001, M100.3000, M100.2000 #### [facility] [address] [place], [address] MRSA screenOrdered By: Christoph Parry on 02-11-2025 MRSA DNA MAGDA+probe Ql (Unsp spec) [facility] Surgery Visit Reporton 02-11 Surgery Visit Report [facility] [address] [place] [address] OFFICE VISIT Date of Service: 02/11/25 MR#: [id number] Acct: [id number] Name: DONELL HERRMANN Rep #: [id number] : 1950 Provider: Dr. Ketan marroquin MD Age/Sex: 74/M Location: [facility] Status: Signed Intake Vital Signs 11/28/24 00:01 02/11/25 08:50 Height 5 ft 4 in 5 ft 4 in Weight: 195 lb 4 oz BMI 33.5 BP 150/77 H Blood Pressure Location Rt brachial Position Sitting Respiration 18 Pulse 72 Pulse Source Monitor Temp 97.9 F Temp Source Temporal Pulse Oximetry (%) 97 Oxygen Delivery Method room air Intake Visit Reasons: DISCUSS INGUINAL HERNIA Chief Complaint: discuss inguinal hernia Accompanied by: Is patient in pain?: No Allergies pneumococcal vaccine (From Pneumovax-23) Adverse Reaction (Verified 02/11/25 08:51) rash on arms Medications ???Medication ???Instructions ???Recorded ???Confirmed ???Type losartan 100 mg tablet 100 mg PO DAILY 04/06/17 02/11/25 History red yeast rice 600 mg capsule 600 mg PO DAILY 04/06/17 02/11/25 History chlorthalidone 25 mg tablet 12.5 mg PO DAILY 08/27/21 02/11/25 History cholecalciferol (vitamin D3) 50 50 mcg PO DAILY 08/27/21 02/11/25 History mcg (2,000 unit) capsule niacin 500 mg tablet 500 mg PO QODAY 08/27/21 02/11/25 History levothyroxine 25 mcg tablet 25 mcg PO DAILY 11/27/24 02/11/25 History omeprazole 20 mg tablet,delayed 20 mg PO DAILY 11/28/24 02/11/25 H istory release Have you fallen in the past year?: No PFSH Medical History (Updated 02/11/25 @ 15:[address] Ketan Parry MD) Right inguinal hernia Non-smoker Hernia GERD (gastroesophageal reflux disease) Hypothyroidism HTN (hypertension) Surgical History (Updated 02/11/25 @ 08:50 by Jennifer Easton LPN) S/P appendectomy Social History Smoking Status: Never smoker alcohol intake: never substance use type: does not use HPI HPI HPI: The patient is a 74-year-old male known to me for a history of perforated appendicitis that underwent operation 11/28/2024. He is presenting for follow-up regarding multiple hernias identified during a prior appendicitis workup. He is accompanied by his . The patient reports occasional mild discomfort in the right groin, describing it as a brief, pulling sensation that resolves spontaneously and occurs infrequently. He denies left-sided groin discomfort and denies any bothersome symptoms from the umbilical region. He maintains regular bowel habits with daily Metamucil use, though he notes a tendency toward constipation if he discontinues it. 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 He denies any history of staph or skin infections, stating that his only prior hospitalizations were for appendicitis and cataract surgery. 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 ROS General General: No weight change, appetite, fatigue, colon cancer, breast cancer or weakness HEENT HEENT: Yes eye injury; No difficulty swallowing, eye surgery, swollen glands or hoarseness Endo Endocrine: Yes thyroid disease; No diabetes mellitus, thyroid cancer, Hair loss, heat intolerance or cold intolerance Skin Skin: No rash or changing moles Musc Musculoskeletal: Yes arthritis; No back problems, rheumatoid arthritis, gout or joint pain Cardio Cardiovascular: Yes high blood pressure; No murmur, pacemaker, heart disease, atrial fibrillation, heart attack, heart stent, palpitations, shortness of breath with exertion or chest pain Psych Psychiatric: No depression, anxiety or hearing voices Resp Respiratory: No shortness of breath, No sleep apnea, No cough, No COPD, No asthma, No emphysema and No wheezing Gastro Gastrointestinal: No abdominal pain, No nausea or vomiting, No diarrhea, No constipation, No blood in stool, Yes acid reflux, No hemorrhoids, No ulcers, No gallbladder problem and No black,tarry stools Abdullahi Hematologic: No blood thinners, No blood disorders, No bleeding, No anemia and No blood clots Neuro Neurologic: No numbness, No tingling and No weakness Exam Const General: cooperative Nutritional Appearance: obese Orientation: alert and oriented x3 Resp Effort Inspection: normal respiratory effort GI Other: Umbilical hernia with partially incarcerated fatty tissue. Patient has no tenderness with palpation. Fascial defect estimated about 2-1/2 cm. Other: Bilateral descended testes with left epididymal cyst? Bilateral indirect inguinal hernia defects. Assessment and Plan Assessment and Plan (1) Bilateral i (more content not included)... Normal [facility] Surgery Visit Reporton 12-10 Surgery Visit Report [facility] [address] [place] [address]. [address] [place] [address] OFFICE VISIT Date of Service: 12/10/24 MR#: [id number] Acct: [id number] Name: DONELL HERRMANN Rep #: [id number] : 1950 Provider: GATITO cooley Age/Sex: 74/M Location: [facility] Status: Signed Intake Vital Signs 11/28/24 00:01 Height 5 ft 4 in Intake Visit Reasons: Appendectomy Chief Complaint: appendectomy Is patient in pain?: No Allergies pneumococcal vaccine (From Pneumovax-23) Adverse Reaction (Verified 12/10/24 10:17) rash on arms Medications ???Medication ???Instructions ???Recorded ???Confirmed ???Type losartan 100 mg tablet 100 mg PO DAILY 04/06/17 12/10/24 History red yeast rice 600 mg capsule 600 mg PO DAILY 04/06/17 12/10/24 History chlorthalidone 25 mg tablet 12.5 mg PO DAILY 08/27/21 12/10/24 History cholecalciferol (vitamin D3) 50 50 mcg PO DAILY 08/27/21 12/10/24 History mcg (2,000 unit) capsule niacin 500 mg tablet 500 mg PO QODAY 08/27/21 12/10/24 History levothyroxine 25 mcg tablet 25 mcg PO DAILY 11/27/24 12/10/24 History omeprazole 20 mg tablet,delayed 20 mg PO DAILY 11/28/24 12/10/24 H istory release Have you fallen in the past year?: No Subjective Details: Patient is a 74 y/o M I am following s/p laparoscopic appendectomy with partial cecectomy by Dr. Parry on 11/27/24. Patient tolerated the procedure well. Patient notes right lower quadrant soreness has resolved over the last 2 days. He denies any nausea, vomiting, fever since the procedure. He notes his appetite has returned to normal. He notes bowel habits have returned to normal especially since adding in metamucil. Pathology demonstrated: MICROSCOPIC DIAGNOSIS A. Appendix appendectomy: - Acute appendicitis with gross perforation Culture results returned as Wound Culture Final 11/29/24-646 Organism 1 Escherichia coli Amount Growth 3+ Culture, Anaerobic Any Source Final 12/03/24-921 Organism 1 Clostridium clostridioforme Organism 2 Bacteroides caccae Beta Lactamase Positive Organism 3 Clostridium group Organism 4 Bacteroides vulgatus Beta Lactamase Positive Organism 5 Bacteroides uniformis Beta Lactamase Positive Organism 6 Bacteroides ovatus Beta Lactamase Positive Objective Details: Abdomen- soft, nontender. Incisions c/d/i. No erythema or infection noted. Single suture was removed. Coding Level of Care Code Global Post Op Diagnoses S/P appendectomy Z90.49 COUNT INCLUDES THE [facility] Medical History (Updated 12/08/24 @ 00:01 by Amauri Vaca) Non-smoker Hernia GERD (gastroesophageal reflux disease) Hypothyroidism HTN (hypertension) Surgical History (Updated 12/10/24 @ 10:19 by Brunilda Monreal) S/P appendectomy No significant past surgical history Social History Smoking Status: Never smoker alcohol intake: never substance use type: does not use Assessment and Plan (No Qualifiers) Assessment and Plan (1) S/P appendectomy: Status: Acute Plan: Discussed signs of infection and when to contact our office Patient to follow-up in 3 months to discuss hernia repair with Dr. Parry. They will call to schedule a consultation. Follow-up as needed 12/10/24 1126 Date Shawnee Trujillo Signature: Date (if applicable) CC: Dr. Guilherme Erickson MD [facility] Culture, Anaerobic Any [facility] colleen 12-03-2024 CUAN UNK UNK Abdominal abscess fluid - collected in OR Studies Have Confirmed That B. Fragilis Group are Routinely Susceptible to: Metronidazole, Piperacillin/Tazobactam, Amoxicillin/Clavulanic acid, and Ertapenem. They are showing an increased RESISTANCE to Penicillin, Clindamycin and Moxifloxacin. Bacteria Spec Anaerobe Cult Clostridium perfringens is generally SUSCEPTIBLE to Penicillin, Metronidazole, and Meropenem. It is showing increasing RESISTANCE to Clindamycin and Tetracycline. Bacteria Spec Anaerobe Cult Clostridium species other than perfringens are generally SUSCEPTIBLE to Piperacillin, Beta-lactams and Beta-lactamase inhibitors, Carbapenems, Metronidazole and Vancomycin. They are generally RESISTANT to Ampicillin, Aminoglycosides, Trimethoprim-sulfamethox azole, and Clindamycin. Bacteria Spec Anaerobe Cult Bacteria Spec Anaerobe Cult Clostridium clostridioforme Bacteroides caccae Beta Lactamase-Reportable Positive Clostridium group Bacteroides vulgatus Beta Lactamase-Reportable Positive Bacteroides uniformis Beta Lactamase-Reportable Positive Bacteroides ovatus Beta Lactamase-Reportable Positive [facility] Comment on above: Performed By: #### M 100.2911, M100.3000, #### [facility] [address] [place], [address] Culture, Blood (WB)on 2024 CUB Blood cultures x2, f rom two different sites No growth in 5 days. Normal [facility] Comment on above: Performed By: #### M 100.4001, M100.3000, #### [facility] [address] [place], [address] Absolute lymphocyte countOrd ered By: Shawnee Hassan on 11-30-2024 Lymphocytes Auto (Unsp spec) [#/Vol] 1.17 10*3/uL 0.83-4.51 [facility] Absolute neutrophil countOrd ered By: Shawnee Hassan on 11-30-2024 Neutrophils (Bld) [#/Vol] 7.8 10*3/uL High 2.0-7.7 [facility] Anion gap in Serum or Plasma Ordered By: Shawnee Hassan on 11-30-2024 Anion gap [Moles/Vol] 15 mmol/L 5-15 [facility] Automated lymphocyte count a s percentage of total leukocytesOrdered By: Shawnee Hassan on 11-30-2024 Lymphocytes/100 WBC Auto (Unsp spec) 11.7 % Low 19-41 [facility] BUN/creatinine ratioOrdered By: Shawnee Hassan on 11-30-2024 Urea nitrogen/Creatinine [Mass ratio] 14.4 mg/mg 10-20 [facility] Basic Metabolic Profile (BMP )on 11-30-2024 BUN/CRE 14.4 RATIO Normal -20 [facility] Comment on above: Performed By: #### M 100.4001, M100.3000, #### [facility] [address] [place], [address] Calcium [Mass/Vol] 8.7 mg/dL Normal 7.6-11.0 [facility] Comment on above: Performed By: #### M 100.4001, M100.3000, #### [facility] [address] [place], [address] Chloride [Moles/Vol] 104 mmol/L Normal 98-108 [facility] Comment on above: Performed By: #### M 100.4001, M100.3000, #### [facility] [address] [place], [address] CO2 [Moles/Vol] 20.0 mmol/L Low 21.0-32.0 [facility] Comment on above: Performed By: #### M 100.4001, M100.3000, #### [facility] [address] [place], [address] Creatinine [Mass/Vol] 1.24 mg/dL High 0.70-1.20 [facility] Comment on above: Performed By: #### M 100.4001, M1.2999, #### [facility] [address] [place], [address] ECRCL 51.58 ml/min Normal 50-250 [facility] Comment on above: Performed By: #### M 100.4001, M1.2999, #### [facility] [address] [place], [address] GAP 15 Normal 5-15 [facility] Comment on above: Performed By: #### M 100.4001, M1.3000, #### [facility] [address] [place], [address] GFR/1.73 sq M.predicted among non-blacks MDRD (S/P/Bld) [Vol rate/Area] 61 mL/min/{1.73_m2} Normal >60 [facility] Comment on above: Result Comment: mL/m in/1.73m2 CKD-EPI Creatinine Equation (2020) Performed By: #### M 100.4001, M1.3000, #### [facility] [address] [place], [address] Glucose [Mass/Vol] 99 mg/dL Normal 70-99 [facility] Comment on above: Performed By: #### M 100.4001, M100.3000, #### [facility] [address] [place], [address] Potassium [Moles/Vol] 3.5 mmol/L Normal 3.3-5.1 [facility] Comment on above: Result Comment: Hemo lysis present, Results??could be affected. ?? Performed By: #### M 100.4001, .3000, #### [facility] [address] [place], [address] Sodium [Moles/Vol] 140 mmol/L Normal 133-145 [facility] Comment on above: Performed By: #### M 100.4001, M1.3000, #### [facility] [address] [place], [address] Urea nitrogen [Mass/Vol] 18 mg/dL Normal 4-19 [facility] Comment on above: Performed By: #### M 100.4001, M100.3000, #### [facility] [address] [place], [address] Basophil percentageOrdered B y: Shawnee Hassan on 11-30-2024 Basophils/100 WBC (Bld) 0.2 % 0-1 [facility] CBC W/Diff, Automatedon Absolute Lymph 1.17 X10 3/uL Normal 0.83-4.51 [facility] Comment on above: Performed By: #### M 100.4001, M100.3000, #### [facility] [address] [place], [address] Absolute Neut 7.8 X10 3/uL High 2.0-7.7 [facility] Comment on above: Performed By: #### M 100.4001, M100.3000, #### [facility] [address] [place], [address] Basophils/100 WBC (Bld) 0.2 % Normal 0-1 [facility] Comment on above: Performed By: #### M 100.4001, M100.3000, #### [facility] [address] [place], [address] Eosinophils/100 WBC (Bld) 2.5 % Normal 0-5 [facility] Comment on above: Performed By: #### M 100.4001, M100.3000, #### [facility] [address] [place], [address] Erythrocyte distribution width (RBC) [Ratio] 14.7 % High 11.6-14.6 [facility] Comment on above: Performed By: #### M 100.4001, M100.3000, #### [facility] [address] [place], [address] Hematocrit (Bld) [Volume fraction] 37.7 % Low 40-54 [facility] Comment on above: Performed By: #### M 100.4001, M100.3000, #### [facility] [address] [place], [address] Hemoglobin (Bld) [Mass/Vol] 12.3 g/dL Low 13.0-16.5 [facility] Comment on above: Performed By: #### M 100.4001, M100.3000, #### [facility] [address] [place], [address] IG% 0.400 Normal 0.0-0.9 [facility] Comment on above: Result Comment: IG% - Immature Granulocytes (promyelocytes, myelocytes and metamyelocytes) > 1% indicates that a LEFT SHIFT is Present. Performed By: #### M 100.4001, M100.3000, #### [facility] [address] [place], [address] Lymphocytes/100 WBC (Bld) 11.7 % Low 19-41 [facility] Comment on above: Performed By: #### M 100.4001, 00.3000, #### [facility] [address] [place], [address] MCH (RBC) [Entitic mass] 31.3 pg Normal 27.0-32.0 [facility] Comment on above: Performed By: #### M 100.4001, 00.3000, #### [facility] [address] [place], [address] MCHC (RBC) [Mass/Vol] 32.6 g/dL Normal 32-36 [facility] Comment on above: Performed By: #### M 100.4001, M100.3000, #### [facility] [address] [place], [address] MCV (RBC) [Entitic vol] 95.9 fL High 80-94 [facility] Comment on above: Performed By: #### M 100.4001, M100.3000, #### [facility] [address] [place], [address] Monocytes/100 WBC (Bld) 7.2 % Normal 0-10 [facility] Comment on above: Performed By: #### M 100.4001, M100.3000, #### [facility] [address] [place], [address] Neutrophils/100 WBC (Bld) 78.0 % High 47-70 [facility] Comment on above: Performed By: #### M 100.4001, M100.3000, #### [facility] [address] [place], [address] Nucleated RBC (Bld) [#/Vol] 0 10*3/uL Normal 0-5 [facility] Comment on above: Performed By: #### M 100.4001, M100.3000, #### [facility] [address] [place], [address] Platelet mean volume (Bld) [Entitic vol] 11.5 fL Normal 6.2-12.0 [facility] Comment on above: Performed By: #### M 100.4001, M100.3000, #### [facility] [address] [place], [address] Platelets (Bld) [#/Vol] 241 10*3/uL Normal 150-450 [facility] Comment on above: Performed By: #### M 100.4001, M100.3000, #### [facility] [address] [place], [address] RBC (Bld) [#/Vol] 3.93 10*6/uL Low 4.6-6.2 [facility] Comment on above: Performed By: #### M 100.4001, M100.3000, #### [facility] [address] [place], [address] RDW SD 52.4 fl High 35.1-43.9 [facility] Comment on above: Performed By: #### M 100.4001, M100.3000, #### [facility] [address] [place], [address] WBC (Bld) [#/Vol] 10.0 10*3/uL Normal 4.4-11.0 [facility] Comment on above: Performed By: #### M 100.4001, M100.3000, M100.2000 #### [facility] [address] [place], [address] Carbon dioxide, total [Moles /volume] in Central venous bloodOrdered By: Shawnee Hassan on 11-30-2024 CO2 [Moles/Vol] 20.0 mmol/L Low 21.0-32.0 [facility] Chloride assayOrdered By: Amanda Hassan on 11-30-2024 Chloride [Moles/Vol] 104 mmol/L 98-108 [facility] Discharge Instructionon 08 Discharge Instruction [facility] Medical Records Department [address] [place] [address] Instructions for Home/Discharge Instructions 11/30/24 0949 MR#: [id number] Acct: [id number] Name: DONELL HERRMANN Rep #: [id number] : 1950 74 From: Ketan Parry MD PCP: Dr. Guilherme Erickson MD Status:ADM IN Discharge Instructions DC O2, CPAP, BIPAP needs Home O2 Discharge instructions: No Dressing / Incision Discharge Activity: May Drive and May Shower (May shower if drain site is protected from getting wet, otherwise recommend waiting 48 hours additionally and removing that dressing) May shower in (days): 2 Ice area for (Minutes): 20 Lifting Restrictions: No lifting greater than 15 pounds for 2 weeks after surgery Dressing / Incision Call your doctor if your incision/area has: Continuous Slow Oozing, Increased Pain/ Swelling, Increased Redness, Foul Smelling Discharge and Swelling at the incision site Call your doctor if you observe: Fever of 101 or Higher Remove Dressing in: 2 days (Please leave Steri-Strips intact until they fall off spontaneously or are taken off at your follow-up visit. DC drain site dressing 48 hours) Cleanse incision/area with: Soap Water Follow Up Care Please Follow Up With: Ketan Parry MD When: 10-14 days postop Test Results: Test results from this visit will be discussed in further detail at your follow-up appointment, if applicable. Discharge Plan Admission Admit Date/Time: 11/28/24 11:37 Primary Reason for Your Visit: Perforated appendicitis Attending Provider: Ketan Parry Primary Care Provider: Guilherme Erickson Discharge Orders/Prescriptions Prescriptions: New amoxicillin-pot clavulanate 875-125 mg Tablet 1 tab PO BID 1 Days Qty: 2 0RF Continued chlorthalidone 25 mg tablet 12.5 mg PO DAILY cholecalciferol (vitamin D3) 50 mcg (2,000 unit) capsule 50 mcg PO DAILY niacin 500 mg tablet 500 mg PO QODAY losartan 100 MG tablet 100 mg PO DAILY Patient Comments: BLOOD PRESSURE red yeast rice 600 MG capsule 600 mg PO DAILY levothyroxine 25 mcg tablet 25 mcg PO DAILY omeprazole 20 mg tablet,delayed release (DR/EC) 20 mg PO DAILY Referrals / Follow Up: Guilherme Erickson MD [Primary Care Provider] - Disposition Disposition (needs filled in before D/C Order can be placed): Home, Self Care 11/30/24 1441 Ketan Parry MD CC: Dr. Guilherme Erickson MD Signed Normal [facility] Eosinophil percentageOrdered By: Shawnee Hassan on 11-30-2024 Eosinophils/100 WBC (Bld) 2.5 % 0-5 [facility] Erythrocyte distribution wid th ratioOrdered By: Shawnee Hassan on 11-30-2024 Erythrocyte distribution width (RBC) [Ratio] 14.7 % High 11.6-14.6 [facility] Erythrocyte distribution wid th standard deviationOrdered By: Shawnee Hassan on 11-30-2024 Erythrocyte distribution width (RBC) [Ratio] 52.4 fl High 35.1-43.9 [facility] Glomerular filtration rate ( GFR) estimation/1.73 sq m using serum, plasma, or whole bOrdered By: Shawnee Hassan on 11-30-2024 GFR/1.73 sq M.predicted among non-blacks MDRD (S/P/Bld) [Vol rate/Area] 61 mL/min/{1.73_m2} >60 [facility] Comment on above: mL/min/1.73m2 CKD-EP I Creatinine Equation (2020) Hematocrit Auto (Bld) [Volum e fraction]Ordered By: Shawnee Hassan on 11-30-2024 Hematocrit (Bld) [Volume fraction] 37.7 % Low 40-54 [facility] Hemoglobin measurementOrdere d By: Shawnee Hassan on 11-30-2024 Hemoglobin (Bld) [Mass/Vol] 12.3 g/dL Low 13.0-16.5 [facility] Immature granulocytes/100 WB C Auto (Bld)Ordered By: Shawnee Hassan on 11-30-2024 Immature granulocytes/100 WBC (Bld) 0.400 % 0.0-0.9 [facility] Comment on above: IG% - Immature Granu locytes (promyelocytes, myelocytes and metamyelocytes) > 1% indicates that a LEFT SHIFT is Present. MCV (mean corpuscular volume ) determinationOrdered By: Shawnee Hassan on 11-30-2024 MCV (RBC) [Entitic vol] 95.9 fL High 80-94 [facility] Mean corpuscular hemoglobin (MCH) determinationOrdered By: Shawnee Hassan on 11-30-2024 MCH (RBC) [Entitic mass] 31.3 pg 27.0-32.0 [facility] Mean corpuscular hemoglobin concentration (MCHC) determinationOrdered By: Shawnee Hassan on 11-30-2024 MCHC (RBC) [Mass/Vol] 32.6 g/dL 32-36 [facility] Mean platelet volume determi nationOrdered By: Shawnee Hassan on 11-30-2024 Platelet mean volume (Bld) [Entitic vol] 11.5 fL 6.2-12.0 [facility] Monocyte percentageOrdered B y: Shawnee Hassan on 11-30-2024 Monocytes/100 WBC (Bld) 7.2 % 0-10 [facility] Neutrophil percentageOrdered By: Shawnee Hassan on 11-30-2024 Neutrophils/100 WBC (Bld) 78.0 % High 47-70 [facility] Nucleated red blood cell per centageOrdered By: Shawnee Hassan on 11-30-2024 Nucleated RBC/100 WBC (Bld) [Ratio] 0 % 0-5 [facility] Platelet countOrdered By: Amanda Hassan on 11-30-2024 Platelets (Bld) [#/Vol] 241 10*3/uL 150-450 [facility] Potassium measurement (mass/ volume)Ordered By: Shawnee Hassan on 11-30-2024 Potassium (Unsp spec) [Mass/Vol] 3.5 mmol/L 3.3-5.1 [facility] Comment on above: Hemolysis present, R esults could be affected. RBC Auto (Bld) [#/Vol]Ordere d By: Shawnee Hassan on 11-30-2024 RBC (Bld) [#/Vol] 3.93 10*6/uL Low 4.6-6.2 [facility] Serum creatinine measurement (mass/volume)Ordered By: Shawnee Hassan on 11-30-2024 Creatinine [Mass/Vol] 1.24 mg/dL High 0.70-1.20 [facility] Serum glucose measurement (m ass/volume)Ordered By: Shawnee Hassan on 11-30-2024 Glucose [Mass/Vol] 99 mg/dL 70-99 [facility] Serum or plasma calcium jessica urement (mass/volume)Ordered By: Shawnee Hassan on 11-30-2024 Calcium [Mass/Vol] 8.7 mg/dL 7.6-11.0 [facility] Serum or plasma urea nitroge n measurement (mass/volume)Ordered By: Shawnee Hassan on 11-30-2024 Urea nitrogen [Mass/Vol] 18 mg/dL 4-19 [facility] Sodium levelOrdered By: Edinson Dacosta on 11-30-2024 Sodium [Moles/Vol] 140 mmol/L 133-145 [facility] White blood cell (WBC) count Ordered By: Shawnee Hassan on 11-30-2024 WBC (Bld) [#/Vol] 10.0 10*3/uL 4.4-11.0 [facility] Anion gap in Serum or Plasma Ordered By: Shawnee Hassan on 11-29-2024 Anion gap [Moles/Vol] 12 mmol/L 5-15 [facility] BUN/creatinine ratioOrdered By: Shawnee Hassan on 11-29-2024 Urea nitrogen/Creatinine [Mass ratio] 14.0 mg/mg 10- [facility] Basic Metabolic Profile (BMP )on 11-29-2024 BUN/CRE 14.0 RATIO Normal - [facility] Comment on above: Performed By: #### L 500.2500, L100.0100 #### [facility] [address] [place], [address] Calcium [Mass/Vol] 8.3 mg/dL Normal 7.6-11.0 [facility] Comment on above: Performed By: #### L 500.2500, L100.0100 #### [facility] [address] [place], [address] Chloride [Moles/Vol] 104 mmol/L Normal 98-108 [facility] Comment on above: Performed By: #### L 500.2500, L100.0100 #### [facility] [address] [place], [address] CO2 [Moles/Vol] 21.4 mmol/L Normal 21.0-32.0 [facility] Comment on above: Performed By: #### L 500.2500, L100.0100 #### [facility] [address] [place], [address] Creatinine [Mass/Vol] 1.36 mg/dL High 0.70-1.20 [facility] Comment on above: Performed By: #### L 500.2500, L100.0100 #### [facility] [address] [place], [address] ECRCL 47.03 ml/min Low 50-250 [facility] Comment on above: Performed By: #### L 500.2500, L100.0100 #### [facility] [address] [place], [address] GAP 12 Normal 5-15 [facility] Comment on above: Performed By: #### L 500.2500, L100.0100 #### [facility] [address] [place], [address] GFR/1.73 sq M.predicted among non-blacks MDRD (S/P/Bld) [Vol rate/Area] 54 mL/min/{1.73_m2} Low >60 [facility] Comment on above: Result Comment: mL/m in/1.73m2 CKD-EPI Creatinine Equation (2020) Performed By: #### L 500.2500, L100.0100 #### [facility] [address] [place], [address] Glucose [Mass/Vol] 104 mg/dL High 70-99 [facility] Comment on above: Performed By: #### L 500.2500, L100.0100 #### [facility] [address] [place], [address] Potassium [Moles/Vol] 3.4 mmol/L Normal 3.3-5.1 [facility] Comment on above: Result Comment: Hemo lysis present, Results??could be affected. ?? Performed By: #### L 500.2500, L100.0100 #### [facility] [address] [place], [address] Sodium [Moles/Vol] 137 mmol/L Normal 133-145 [facility] Comment on above: Performed By: #### L 500.2500, L100.0100 #### [facility] [address] [place], [address] Urea nitrogen [Mass/Vol] 19 mg/dL Normal 4-19 [facility] Comment on above: Performed By: #### L 500.2500, L100.0100 #### [facility] [address] [place], [address] CBC W/Diff, Automatedon 07-3 -2024 Absolute Lymph 0.93 X10 3/uL Normal 0.83-4.51 [facility] Comment on above: Performed By: #### L 500.2500, L100.0100 #### [facility] [address] [place], [address] Absolute Neut 9.5 X10 3/uL High 2.0-7.7 [facility] Comment on above: Performed By: #### L 500.2500, L100.0100 #### [facility] [address] [place], [address] Basophils/100 WBC (Bld) 0.2 % Normal 0-1 [facility] Comment on above: Performed By: #### L 500.2500, L100.0100 #### [facility] [address] [place], [address] Eosinophils/100 WBC (Bld) 0.6 % Normal 0-5 [facility] Comment on above: Performed By: #### L 500.2500, L100.0100 #### [facility] [address] [place], [address] Erythrocyte distribution width (RBC) [Ratio] 14.8 % High 11.6-14.6 [facility] Comment on above: Performed By: #### L 500.2500, L100.0100 #### [facility] [address] [place], [address] Hematocrit (Bld) [Volume fraction] 36.9 % Low 40-54 [facility] Comment on above: Performed By: #### L 500.2500, L100.0100 #### [facility] [address] [place], [address] Hemoglobin (Bld) [Mass/Vol] 12.0 g/dL Low 13.0-16.5 [facility] Comment on above: Performed By: #### L 500.2500, L100.0100 #### [facility] [address] [place], [address] IG% 0.600 Normal 0.0-0.9 [facility] Comment on above: Result Comment: IG% - Immature Granulocytes (promyelocytes, myelocytes and metamyelocytes) > 1% indicates that a LEFT SHIFT is Present. Performed By: #### L 500.2500, L100.0100 #### [facility] [address] [place], [address] Lymphocytes/100 WBC (Bld) 8.0 % Low 19-41 [facility] Comment on above: Performed By: #### L 500.2500, L100.0100 #### [facility] [address] [place], [address] MCH (RBC) [Entitic mass] 31.6 pg Normal 27.0-32.0 [facility] Comment on above: Performed By: #### L 500.2500, L100.0100 #### [facility] [address] [place], [address] MCHC (RBC) [Mass/Vol] 32.5 g/dL Normal 32-36 [facility] Comment on above: Performed By: #### L 500.2500, L100.0100 #### [facility] [address] [place], [address] MCV (RBC) [Entitic vol] 97.1 fL High 80-94 [facility] Comment on above: Performed By: #### L 500.2500, L100.0100 #### [facility] [address] [place], [address] Monocytes/100 WBC (Bld) 8.3 % Normal 0-10 [facility] Comment on above: Performed By: #### L 500.2500, L100.0100 #### [facility] [address] [place], [address] Neutrophils/100 WBC (Bld) 82.3 % High 47-70 [facility] Comment on above: Performed By: #### L 500.2500, L100.0100 #### [facility] [address] [place], [address] Nucleated RBC (Bld) [#/Vol] 0 10*3/uL Normal 0-5 [facility] Comment on above: Performed By: #### L 500.2500, L100.0100 #### [facility] [address] [place], [address] Platelet mean volume (Bld) [Entitic vol] 11.0 fL Normal 6.2-12.0 [facility] Comment on above: Performed By: #### L 500.2500, L100.0100 #### [facility] [address] [place], [address] Platelets (Bld) [#/Vol] 184 10*3/uL Normal 150-450 [facility] Comment on above: Performed By: #### L 500.2500, L100.0100 #### [facility] [address] [place], [address] RBC (Bld) [#/Vol] 3.80 10*6/uL Low 4.6-6.2 [facility] Comment on above: Performed By: #### L 500.2500, L100.0100 #### [facility] [address] [place], [address] RDW SD 53.1 fl High 35.1-43.9 [facility] Comment on above: Performed By: #### L 500.2500, L100.0100 #### [facility] [address] [place], [address] WBC (Bld) [#/Vol] 11.6 10*3/uL High 4.4-11.0 [facility] Comment on above: Performed By: #### L 500.2500, L100.0100 #### [facility] [address] [place], [address] Carbon dioxide, total [Moles /volume] in Central venous bloodOrdered By: Shawnee Hassan on 11-29-2024 CO2 [Moles/Vol] 21.4 mmol/L 21.0-32.0 [facility] Chloride assayOrdered By: Amanda Hassan on 11-29-2024 Chloride [Moles/Vol] 104 mmol/L 98-108 [facility] Glomerular filtration rate ( GFR) estimation/1.73 sq m using serum, plasma, or whole bOrdered By: Shawnee Hassan on 11-29-2024 GFR/1.73 sq M.predicted among non-blacks MDRD (S/P/Bld) [Vol rate/Area] 54 mL/min/{1.73_m2} Low >60 [facility] Comment on above: mL/min/1.73m2 CKD-EP I Creatinine Equation (2020) Potassium measurement (mass/ volume)Ordered By: Shawnee Hassan on 11-29-2024 Potassium (Unsp spec) [Mass/Vol] 3.4 mmol/L 3.3-5.1 [facility] Comment on above: Hemolysis present, R esults could be affected. Serum creatinine measurement (mass/volume)Ordered By: Shawnee Hassan on 11-29-2024 Creatinine [Mass/Vol] 1.36 mg/dL High 0.70-1.20 [facility] Serum glucose measurement (m ass/volume)Ordered By: Shawnee Hassan on 11-29-2024 Glucose [Mass/Vol] 104 mg/dL High 70-99 [facility] Serum or plasma calcium jessica urement (mass/volume)Ordered By: Shawnee Hassan on 11-29-2024 Calcium [Mass/Vol] 8.3 mg/dL 7.6-11.0 [facility] Serum or plasma urea nitroge n measurement (mass/volume)Ordered By: Shawnee Hassan on 11-29-2024 Urea nitrogen [Mass/Vol] 19 mg/dL 4-19 [facility] Sodium levelOrdered By: Edinson Dacosta on 11-29-2024 Sodium [Moles/Vol] 137 mmol/L 133-145 [facility] Wound Cultureon 11-29-2024 WC UNK UNK Abdominal abscess fluid - collected in [place] Escherichia coli Amount Growth 3+ Escherichia coli: REACTION Ampicillin Islt BEVERLEY <=2 Ampicillin+Sulbac Islt BEVERLEY <=2 S Cefepime Islt BEVERLEY <=0.12 S cefTRIAXone Islt BEVERLEY <=0.25 S Ciprofloxacin Islt BEVERLEY <=0.06 S B-Lactamase Extended Susc Islt NEG Gentamicin Islt BEVERLEY <=1 S levoFLOXacin Islt BEVERLEY <=0.12 S Meropenem Islt BEVERLEY <=0.25 S Pip+Tazo Islt BEVERLEY <=4 S TMP SMX Islt BEVERLEY <=20 S Normal [facility] Comment on above: Performed By: #### M 100.4001, M100.3000, #### [facility] [address] [place], [address] Basic Metabolic Profile (BMP )on 11-28-2024 BUN/CRE 17.0 RATIO Normal 10-20 [facility] Comment on above: Performed By: #### M 100.4001, .3000, #### [facility] [address] [place], [address] Calcium [Mass/Vol] 8.1 mg/dL Normal 7.6-11.0 [facility] Comment on above: Performed By: #### M 100.4001, 00.3000, #### [facility] [address] [place], [address] Chloride [Moles/Vol] 101 mmol/L Normal 98-108 [facility] Comment on above: Performed By: #### M 100.4001, M100.3000, #### [facility] [address] [place], [address] CO2 [Moles/Vol] 19.8 mmol/L Low 21.0-32.0 [facility] Comment on above: Performed By: #### M 100.4001, M100.3000, #### [facility] [address] [place], [address] Creatinine [Mass/Vol] 1.28 mg/dL High 0.70-1.20 [facility] Comment on above: Performed By: #### M 100.4001, M100.3000, #### [facility] [address] [place], [address] ECRCL 49.97 ml/min Low 50-250 [facility] Comment on above: Performed By: #### M 100.4001, M100.3000, #### [facility] [address] [place], [address] GAP 15 Normal 5-15 [facility] Comment on above: Performed By: #### M 100.4001, M100.3000, #### [facility] [address] [place], [address] GFR/1.73 sq M.predicted among non-blacks MDRD (S/P/Bld) [Vol rate/Area] 58 mL/min/{1.73_m2} Low >60 [facility] Comment on above: Result Comment: mL/m in/1.73m2 CKD-EPI Creatinine Equation (2020) Performed By: #### M 100.4001, M100.3000, #### [facility] [address] [place], [address] Glucose [Mass/Vol] 120 mg/dL High 70-99 [facility] Comment on above: Performed By: #### M 100.4001, M100.3000, #### [facility] [address] [place], [address] Potassium [Moles/Vol] 3.6 mmol/L Normal 3.3-5.1 [facility] Comment on above: Performed By: #### M 100.4001, M100.3000, #### [facility] [address] [place], [address] Sodium [Moles/Vol] 136 mmol/L Normal 133-145 [facility] Comment on above: Performed By: #### M 100.4001, M100.3000, #### [facility] [address] [place], [address] Urea nitrogen [Mass/Vol] 22 mg/dL High 4-19 [facility] Comment on above: Performed By: #### M 100.4001, M100.3000, #### [facility] [address] [place], [address] CBC W/Diff, Automatedon 07-3 0-2024 Absolute Lymph 0.61 X10 3/uL Low 0.83-4.51 [facility] Comment on above: Performed By: #### M 100.4001, M100.3000, #### [facility] [address] [place], [address] Absolute Neut 12.0 X10 3/uL High 2.0-7.7 [facility] Comment on above: Performed By: #### M 100.4001, M100.3000, #### [facility] [address] [place], [address] Basophils/100 WBC (Bld) 0.1 % Normal 0-1 [facility] Comment on above: Performed By: #### M 100.4001, M100.3000, #### [facility] [address] [place], [address] Eosinophils/100 WBC (Bld) 0.0 % Normal 0-5 [facility] Comment on above: Performed By: #### M 100.4001, M100.3000, #### [facility] [address] [place], [address] Erythrocyte distribution width (RBC) [Ratio] 14.6 % Normal 11.6-14.6 [facility] Comment on above: Performed By: #### M 100.4001, M100.3000, #### [facility] [address] [place], [address] Hematocrit (Bld) [Volume fraction] 37.8 % Low 40-54 [facility] Comment on above: Performed By: #### M 100.4001, M100.3000, #### [facility] [address] [place], [address] Hemoglobin (Bld) [Mass/Vol] 12.6 g/dL Low 13.0-16.5 [facility] Comment on above: Performed By: #### M 100.4001, M100.3000, #### [facility] [address] [place], [address] IG% 0.700 Normal 0.0-0.9 [facility] Comment on above: Result Comment: IG% - Immature Granulocytes (promyelocytes, myelocytes and metamyelocytes) > 1% indicates that a LEFT SHIFT is Present. Performed By: #### M 100.4001, .3000, #### [facility] [address] [place], [address] Lymphocytes/100 WBC (Bld) 4.5 % Low 19-41 [facility] Comment on above: Performed By: #### M 100.4001, M100.3000, #### [facility] [address] [place], [address] MCH (RBC) [Entitic mass] 31.4 pg Normal 27.0-32.0 [facility] Comment on above: Performed By: #### M 100.4001, M100.3000, #### [facility] [address] [place], [address] MCHC (RBC) [Mass/Vol] 33.3 g/dL Normal 32-36 [facility] Comment on above: Performed By: #### M 100.4001, M100.3000, #### [facility] [address] [place], [address] MCV (RBC) [Entitic vol] 94.3 fL High 80-94 [facility] Comment on above: Performed By: #### M 100.4001, M100.3000, #### [facility] [address] [place], [address] Monocytes/100 WBC (Bld) 5.8 % Normal 0-10 [facility] Comment on above: Performed By: #### M 100.4001, M100.3000, #### [facility] [address] [place], [address] Neutrophils/100 WBC (Bld) 88.9 % High 47-70 [facility] Comment on above: Performed By: #### M 100.4001, M100.3000, #### [facility] [address] [place], [address] Nucleated RBC (Bld) [#/Vol] 0 10*3/uL Normal 0-5 [facility] Comment on above: Performed By: #### M 100.4001, M100.3000, #### [facility] [address] [place], [address] Platelet mean volume (Bld) [Entitic vol] 10.8 fL Normal 6.2-12.0 [facility] Comment on above: Performed By: #### M 100.4001, M100.3000, #### [facility] [address] [place], [address] Platelets (Bld) [#/Vol] 172 10*3/uL Normal 150-450 [facility] Comment on above: Performed By: #### M 100.4001, M100.3000, #### [facility] [address] [place], [address] RBC (Bld) [#/Vol] 4.01 10*6/uL Low 4.6-6.2 [facility] Comment on above: Performed By: #### M 100.4001, M100.3000, M100.1999 #### [facility] [address] [place], [address] RDW SD 51.1 fl High 35.1-43.9 [facility] Comment on above: Performed By: #### M 100.4001, M100.3000, M100.1999 #### [facility] [address] [place], [address] WBC (Bld) [#/Vol] 13.5 10*3/uL High 4.4-11.0 [facility] Comment on above: Performed By: #### M 100.4001, M100.3000, M100.1999 #### [facility] [address] [place], [address] Electrocardiogram reportOrde red By: Umberto Mazariegos on 11-28-2024 EKG study [facility] [address] [place] [address] 12 Lead EKG 11/27/24 1541 MR#: [id number] Acct: [id number] Name: DONELL HERRMANN Rep #:[id number] : 1950 74 From: Umberto Mazariegos MD Attending Dr: Dr. Ketan Parry MD Status: ADM FRIEDA Ordering Dr: Kal Mcdonald DO Date: Location: [facility] Sex: M C Admitted: 11/27/24 Test Reason : GENERAL Blood Pressure : */* mmHG Vent. Rate : 96 BPM Atrial Rate : 96 BPM P-R Int : 210 ms QRS Dur : 90 ms QT Int : 340 ms P-R-T Axes : 43 -24 34 degrees QTcB Int : 429 ms Sinus rhythm with 1st degree A-V block Otherwise normal ECG Confirmed by UMBERTO MAZARIEGOS MD ([id number]), mapping editor SHAWNEE JOE ([id number]) on 58:36:36 AM Referred By: Confirmed By: UMBERTO MAZARIEGOS MD 11/28/24 0836 Date _ Umberto Mazariegos MD CC: Dr. Guilherme Erickson MD; Dr. Ketan Parry MD; Dr. Kal Mcdonald DO ~ Signed [facility] Other Phone: Gram Stainon 11-28-2024 GS UNK UNK Abdominal abscess fluid - collected in [place] Gram Stain 3+ White Blood Cells 4+ Gram positive rods 3+ Gram negative rods 2+ Gram positive cocci Normal [facility] Comment on above: Performed By: #### M 100.4001, M100.3000, M100.2000 #### [facility] [address] [place], [address] Urine Cultureon 11-28-2024 URC Culture exhibits no growth. Normal [facility] Comment on above: Performed By: #### L 400.0001, M100.2200 #### [facility] [address] [place], [address] 12 Lead EKGon 11-27-2024 12 Lead EKG [facility] [address] [place] [address] 12 Lead EKG 11/27/24 1541 MR#: [id number] Acct: [id number] Name: DONELL HERRMANN Rep #: [id number] : 1950 74 From: Umberto Mazariegos MD Attending Dr: Dr. Ketan Parry MD Status: ADM FRIEDA Ordering Dr: Kal Mcdonald DO Date: 11/27/24 Location: [place] Sex: M C Admitted: 11/27/24 Test Reason : GENERAL Blood Pressure : */* mmHG Vent. Rate : 96 BPM Atrial Rate : 96 BPM P-R Int : 210 ms QRS Dur : 90 ms QT Int : 340 ms P-R-T Axes : 43 -24 34 degrees QTcB Int : 429 ms Sinus rhythm with 1st degree A-V block Otherwise normal ECG Confirmed by UMBERTO MAZARIEGOS MD ([id number]), mapping editor SHAWNEE JOE ([id number]) on 11/28/2024 8:36:36 AM Referred By: Confirmed By: UMBERTO MAZARIEGOS MD 11/28/24 0836 Date Umberto Mazariegos MD CC: Dr. Guilherme Erickson MD; Dr. Ketan Parry MD; Dr. Kal Mcdonald DO Signed Normal [facility] Abdomen/Pelvis W IV Cont ONL Yon 11-27-2024 Abdomen/Pelvis W IV Cont ONLY [facility] [address] [place], [place] [address] Abdomen/Pelvis W IV Cont ONLY MR#: [id number] Acct: [id number] Name: DONELL HERRMANN Rep #: [id number] : 1950 M 74 From: Michelle Bruno PCP: Dr. Guilherme Erickson MD Status: REG ER Study: Abdomen/Pelvis W IV Cont ONLY Date of Exam: Exam# [id number] Ordering Dr: Kal Mcdonald DO PROCEDURE: ABDOMEN/PELVIS W IV CONT [...] inguinal hernia with bladder herniation. Reading Location: [facility] CC: Dr. Guilherme Erickson MD; Dr. Kal Mcdonald DO Therapeutic Radiologist: Signed Normal [facility] Absolute lymphocyte countOrd ered By: Kal Mcdonald on 11-27-2024 Lymphocytes Auto (Unsp spec) [#/Vol] 1.07 10*3/uL 0.83-4.51 [facility] Absolute neutrophil countOrd ered By: Kal Mcdonald on 11-27-2024 Neutrophils (Bld) [#/Vol] 15.2 10*3/uL High 2.0-7.7 [facility] Activated partial thrombopla stin time (aPTT) in platelet poor plasma by coagulation aOrdered By: Kal Mcdonald on 11-27-2024 aPTT Coag (PPP) [Time] 29.0 s 24.1-36.2 [facility] Anaerobic cultureOrdered By: Ketan Parry on 11-27-2024 Bacteria identified Anaer cx Nom (Unsp spec) Clostridium clostridioforme Abnormal [facility] Bacteria identified Anaer cx Nom (Unsp spec) Bacteroides caccae Abnormal [facility] Bacteria identified Anaer cx Nom (Unsp spec) Clostridium group Abnormal [facility] Bacteria identified Anaer cx Nom (Unsp spec) Bacteroides vulgatus Abnormal [facility] Bacteria identified Anaer cx Nom (Unsp spec) Bacteroides uniformis Abnormal [facility] Bacteria identified Anaer cx Nom (Unsp spec) Bacteroides ovatus Abnormal [facility] Anion gap in Serum or Plasma Ordered By: Kal Mcdonald on 11-27-2024 Anion gap [Moles/Vol] 15 mmol/L 5-15 [facility] Automated lymphocyte count a s percentage of total leukocytesOrdered By: Kal Wilkser on 11-27-2024 Lymphocytes/100 WBC Auto (Unsp spec) 6.0 % Low 19-41 [facility] BUN/creatinine ratioOrdered By: Kal Mcdonald on 11-27-2024 Urea nitrogen/Creatinine [Mass ratio] 16.5 mg/mg 10-20 [facility] Basophil percentageOrdered B y: Kal Mcdonald on 11-27-2024 Basophils/100 WBC (Bld) 0.2 % 0-1 [facility] Bilirubin Test strip Ql (U)O rdered By: Kal Tamara on 11-27-2024 Bilirubin Ql (U) Negative Negative [facility] Bilirubin, totalOrdered By: Kal Mcdonald on 11-27-2024 Bilirubin [Mass/Vol] 0.95 mg/dL 0.00-1.30 [facility] Blood cultureOrdered By: Kendell nunez Mcdonald on 11-27-2024 Bacteria identified Cx Nom (Bld) No growth in 5 days. [facility] Bacteria identified Cx Nom (Bld) No growth in 5 days. [facility] CBC W/Diff, Automatedon 10-31 Absolute Lymph 1.07 X10 3/uL Normal 0.83-4.51 [facility] Comment on above: Performed By: #### L 100.0100, L300.3900, L500.4050, M200.1000, L300.4310, L503.6005 #### [facility] [address] [place], [address] Absolute Neut 15.2 X10 3/uL High 2.0-7.7 [facility] Comment on above: Performed By: #### L 100.0100, L300.3900, L500.4050, M200.1000, L300.4310, L503.6005 #### [facility] [address] [place], [address] Basophils/100 WBC (Bld) 0.2 % Normal 0-1 [facility] Comment on above: Performed By: #### L 100.0100, L300.3900, L500.4050, M200.1000, L300.4310, L503.6005 #### [facility] [address] [place], [address] Eosinophils/100 WBC (Bld) 0.1 % Normal 0-5 [facility] Comment on above: Performed By: #### L 100.0100, L300.3900, L500.4050, M200.1000, L300.4310, L503.6005 #### [facility] [address] [place], [address] Erythrocyte distribution width (RBC) [Ratio] 14.3 % Normal 11.6-14.6 [facility] Comment on above: Performed By: #### L 100.0100, L300.3900, L500.4050, M200.1000, L300.4310, L503.6005 #### [facility] [address] [place], [address] Hematocrit (Bld) [Volume fraction] 41.3 % Normal 40-54 [facility] Comment on above: Performed By: #### L 100.0100, L300.3900, L500.4050, M200.1000, L300.4310, L503.6005 #### [facility] [address] [place], [address] Hemoglobin (Bld) [Mass/Vol] 13.8 g/dL Normal 13.0-16.5 [facility] Comment on above: Performed By: #### L 100.0100, L300.3900, L500.4050, M200.1000, L300.4310, L503.6005 #### [facility] [address] [place], [address] IG% 0.800 Normal 0.0-0.9 [facility] Comment on above: Result Comment: IG% - Immature Granulocytes (promyelocytes, myelocytes and metamyelocytes) > 1% indicates that a LEFT SHIFT is Present. Performed By: #### L 100.0100, L300.3900, L500.4050, M200.1000, L300.4310, L503.6005 #### [facility] [address] [place], [address] Lymphocytes/100 WBC (Bld) 6.0 % Low 19-41 [facility] Comment on above: Performed By: #### L 100.0100, L300.3900, L500.4050, M200.1000, L300.4310, L503.6005 #### [facility] [address] [place], [address] MCH (RBC) [Entitic mass] 31.4 pg Normal 27.0-32.0 [facility] Comment on above: Performed By: #### L 100.0100, L300.3900, L500.4050, M200.1000, L300.4310, L503.6005 #### [facility] [address] [place], [address] MCHC (RBC) [Mass/Vol] 33.4 g/dL Normal 32-36 [facility] Comment on above: Performed By: #### L 100.0100, L300.3900, L500.4050, M200.1000, L300.4310, L503.6005 #### [facility] [address] [place], [address] MCV (RBC) [Entitic vol] 94.1 fL High 80-94 [facility] Comment on above: Performed By: #### L 100.0100, L300.3900, L500.4050, M200.1000, L300.4310, L503.6005 #### [facility] [address] [place], [address] Monocytes/100 WBC (Bld) 8.0 % Normal 0-10 [facility] Comment on above: Performed By: #### L 100.0100, L300.3900, L500.4050, M200.1000, L300.4310, L503.6005 #### [facility] [address] [place], [address] Neutrophils/100 WBC (Bld) 84.9 % High 47-70 [facility] Comment on above: Performed By: #### L 100.0100, L300.3900, L500.4050, M200.1000, L300.4310, L503.6005 #### [facility] [address] [place], [address] Nucleated RBC (Bld) [#/Vol] 0 10*3/uL Normal 0-5 [facility] Comment on above: Performed By: #### L 100.0100, L300.3900, L500.4050, M200.1000, L300.4310, L503.6005 #### [facility] [address] [place], [address] Platelet mean volume (Bld) [Entitic vol] 10.7 fL Normal 6.2-12.0 [facility] Comment on above: Performed By: #### L 100.0100, L300.3900, L500.4050, M200.1000, L300.4310, L503.6005 #### [facility] [address] [place], [address] Platelets (Bld) [#/Vol] 202 10*3/uL Normal 150-450 [facility] Comment on above: Performed By: #### L 100.0100, L300.3900, L500.4050, M200.1000, L300.4310, L503.6005 #### [facility] [address] [place], [address] RBC (Bld) [#/Vol] 4.39 10*6/uL Low 4.6-6.2 [facility] Comment on above: Performed By: #### L 100.0100, L300.3900, L500.4050, M200.1000, L300.4310, L503.6005 #### [facility] [address] [place], [address] RDW SD 49.5 fl High 35.1-43.9 [facility] Comment on above: Performed By: #### L 100.0100, L300.3900, L500.4050, M200.1000, L300.4310, L503.6005 #### [facility] [address] [place], [address] WBC (Bld) [#/Vol] 17.9 10*3/uL High 4.4-11.0 [facility] Comment on above: Performed By: #### L 100.0100, L300.3900, L500.4050, M200.1000, L300.4310, L503.6005 #### [facility] [address] [place], [address] Carbon dioxide, total [Moles /volume] in Central venous bloodOrdered By: Kal Mcdonald on 11-27-2024 CO2 [Moles/Vol] 23.6 mmol/L 21.0-32.0 [facility] Chloride assayOrdered By: Mariano Mcdonald on 11-27-2024 Chloride [Moles/Vol] 95 mmol/L Low 98-108 [facility] Comprehensive Metabolic Prof ilon 11-27-2024 Albumin [Mass/Vol] 4.7 g/dL Normal 3.4-4.8 [facility] Comment on above: Performed By: #### L 100.0100, L300.3900, L500.4050, M200.1000, L300.4310, L503.6005 #### [facility] [address] [place], [address] Albumin/Globulin [Mass ratio] 1.0 {ratio} Normal 0.9-2.4 [facility] Comment on above: Performed By: #### L 100.0100, L300.3900, L500.4050, M200.1000, L300.4310, L503.6005 #### [facility] [address] [place], [address] ALK PHOS 56 U/L Normal 40-129 [facility] Comment on above: Performed By: #### L 100.0100, L300.3900, L500.4050, M200.1000, L300.4310, L503.6005 #### [facility] [address] [place], [address] ALT [Catalytic activity/Vol] 20 U/L Normal <=46 [facility] Comment on above: Performed By: #### L 100.0100, L300.3900, L500.4050, M200.1000, L300.4310, L503.6005 #### [facility] [address] [place], [address] AST [Catalytic activity/Vol] 24 U/L Normal <=37 [facility] Comment on above: Performed By: #### L 100.0100, L300.3900, L500.4050, M200.1000, L300.4310, L503.6005 #### [facility] [address] [place], [address] Bilirubin [Mass/Vol] 0.95 mg/dL Normal 0.00-1.30 [facility] Comment on above: Performed By: #### L 100.0100, L300.3900, L500.4050, M200.1000, L300.4310, L503.6005 #### [facility] [address] [place], [address] BUN/CRE 16.5 RATIO Normal 10-20 [facility] Comment on above: Performed By: #### L 100.0100, L300.3900, L500.4050, M200.1000, L300.4310, L503.6005 #### [facility] [address] [place], [address] Calcium [Mass/Vol] 9.7 mg/dL Normal 7.6-11.0 [facility] Comment on above: Performed By: #### L 100.0100, L300.3900, L500.4050, M200.1000, L300.4310, L503.6005 #### [facility] [address] [place], [address] Chloride [Moles/Vol] 95 mmol/L Low 98-108 [facility] Comment on above: Performed By: #### L 100.0100, L300.3900, L500.4050, M200.1000, L300.4310, L503.6005 #### [facility] [address] [place], [address] CO2 [Moles/Vol] 23.6 mmol/L Normal 21.0-32.0 [facility] Comment on above: Performed By: #### L 100.0100, L300.3900, L500.4050, M200.1000, L300.4310, L503.6005 #### [facility] [address] [place], [address] Creatinine [Mass/Vol] 1.42 mg/dL High 0.70-1.20 [facility] Comment on above: Performed By: #### L 100.0100, L300.3900, L500.4050, M200.1000, L300.4310, L503.6005 #### [facility] [address] [place], [address] ECRCL 45.09 ml/min Low 50-250 [facility] Comment on above: Performed By: #### L 100.0100, L300.3900, L500.4050, M200.1000, L300.4310, L503.6005 #### [facility] [address] [place], [address] GAP 15 Normal 5-15 [facility] Comment on above: Performed By: #### L 100.0100, L300.3900, L500.4050, M200.1000, L300.4310, L503.6005 #### [facility] [address] [place], [address] GFR/1.73 sq M.predicted among non-blacks MDRD (S/P/Bld) [Vol rate/Area] 52 mL/min/{1.73_m2} Low >60 [facility] Comment on above: Result Comment: mL/m in/1.73m2 CKD-EPI Creatinine Equation (2020) Performed By: #### L 100.0100, L300.3900, L500.4050, M200.1000, L300.4310, L503.6005 #### [facility] [address] [place], [address] Globulin (S) [Mass/Vol] 4.6 g/dL High 2.2-4.2 [facility] Comment on above: Performed By: #### L 100.0100, L300.3900, L500.4050, M200.1000, L300.4310, L503.6005 #### [facility] [address] [place], [address] Glucose [Mass/Vol] 111 mg/dL High 70-99 [facility] Comment on above: Performed By: #### L 100.0100, L300.3900, L500.4050, M200.1000, L300.4310, L503.6005 #### [facility] [address] [place], [address] Potassium [Moles/Vol] 3.5 mmol/L Normal 3.3-5.1 [facility] Comment on above: Performed By: #### L 100.0100, L300.3900, L500.4050, M200.1000, L300.4310, L503.6005 #### [facility] [address] [place], [address] Sodium [Moles/Vol] 134 mmol/L Normal 133-145 [facility] Comment on above: Performed By: #### L 100.0100, L300.3900, L500.4050, M200.1000, L300.4310, L503.6005 #### [facility] [address] [place], [address] T PROT 9.3 g/dL High 5.9-8.4 [facility] Comment on above: Performed By: #### L 100.0100, L300.3900, L500.4050, M200.1000, L300.4310, L503.6005 #### [facility] [address] [place], [address] Urea nitrogen [Mass/Vol] 23 mg/dL High 4-19 [facility] Comment on above: Performed By: #### L 100.0100, L300.3900, L500.4050, M200.1000, L300.4310, L503.6005 #### [facility] [address] [place], [address] Emergency Department Summary on 11-27-2024 Emergency Department Summary [facility] Medical Records Department [address] [place] [address] Emergency Department Summary 11/27/24 MR#: [id number] Acct: [id number] Name: DONELL HERRMANN Rep #: [id number] : 1950 74 From: Kal Mcdonald DO PCP: Dr. Guilherme Erickson MD Status:REG ER Location: ED HPI History of Present Illness Chief Complaint: Abd Pain Narrative Narrative: Patient is a 74-year-old male with past medical history of hypothyroidism, hypertension who presented to the emergency department chief complaint of abdominal pain. Patient states that he originally had left-sided abdominal pain now that has moved to the right side. [...] tarry stools or blood in his stool. [facility] Medical History Hypothyroidism HTN (hypertension) Home Medications ???Medication ???Instructions ???Recorded ???Last Taken ???Type losartan 100 mg tablet 100 mg PO DAILY 04/06/17 11/24/24 History red yeast rice 600 mg capsule 600 mg PO DAILY 04/06/17 11/27/24 History chlorthalidone 25 mg tablet 12.5 mg PO DAILY 08/27/21 11/27/24 History cholecalciferol (vitamin D3) 50 50 mcg PO DAILY 08/27/21 11/27/24 History mcg (2,000 unit) capsule niacin 500 mg tablet 500 mg PO QODAY 08/27/21 11/26/24 History levothyroxine 25 mcg tablet 25 mcg PO DAILY 11/27/24 11/27/24 History Allergy/AdvReac Type Severity Reaction Status [...] Patient follow commands knew he was at [facility] the year is 2024 Skin: Warm, [...] pain. On the differential diagnosis includes but limited to appendicitis, bowel obstruction, appendicitis abscess, pancreatitis, viral gastroenteritis, musculoskeletal strain. Once workup is obtained reviewed he will be reevaluated. Patient to give IV fluids morphine Zofran. Patient CBC was significant for leukocytosis of 17,000, hemoglobin 13.8, platelet count of 202. Patient's INR normal at 1.1, PT of 14.1. Patient sodium was 134, potassium normal at 3.5, creatinine was 1.42 he has have underlying chronic kidney disease based on previous blood draws. Patient's AST and ALT were 24 and 20 respectively total bilirubin normal at 0.95. Patient's CT abdomen pelvis IV contrast reviewed and showed acute appendicitis with significant surr (more content not included)... Normal [facility] Eosinophil percentageOrdered By: Kal Mcdonald on 11-27-2024 Eosinophils/100 WBC (Bld) 0.1 % 0-5 [facility] Erythrocyte distribution wid th ratioOrdered By: Kal Mcdonald on 11-27-2024 Erythrocyte distribution width (RBC) [Ratio] 14.3 % 11.6-14.6 [facility] Erythrocyte distribution wid th standard deviationOrdered By: Kal Mcdonald on 11-27-2024 Erythrocyte distribution width (RBC) [Ratio] 49.5 fl High 35.1-43.9 [facility] Free T3on 11-27-2024 Free T3 [Mass/Vol] 2.6 pg/mL Normal 2.18-3.98 [facility] Comment on above: Performed By: #### M 100.4001, M100.3000, M100.2000 #### [facility] [place], [address] Free E6Scykieo By: Kal yu on 11-27-2024 Free T3 [Mass/Vol] 2.6 pg/mL 2.18-3.98 [facility] Glomerular filtration rate ( GFR) estimation/1.73 sq m using serum, plasma, or whole bOrdered By: Kal Mcdonald on 11-27-2024 GFR/1.73 sq M.predicted among non-blacks MDRD (S/P/Bld) [Vol rate/Area] 52 mL/min/{1.73_m2} Low >60 [facility] Comment on above: mL/min/1.73m2 CKD-EP I Creatinine Equation (2020) Gram stainOrdered By: Chelle Parry on 11-27-2024 Microscopic observation Gram stain Nom (Unsp spec) [facility] Hematocrit Auto (Bld) [Volum e fraction]Ordered By: Kal Mcdonald on 11-27-2024 Hematocrit (Bld) [Volume fraction] 41.3 % 40-54 [facility] Hemoglobin measurementOrdere d By: Kal Mcdonald on 11-27-2024 Hemoglobin (Bld) [Mass/Vol] 13.8 g/dL 13.0-16.5 [facility] Immature granulocytes/100 WB C Auto (Bld)Ordered By: Kal Mcdonald on 11-27-2024 Immature granulocytes/100 WBC (Bld) 0.800 % 0.0-0.9 [facility] Comment on above: IG% - Immature Granu locytes (promyelocytes, myelocytes and metamyelocytes) > 1% indicates that a LEFT SHIFT is Present. International normalized rat io (INR) calculationOrdered By: Kal Mcdonald on 11-27-2024 INR Coag (Bld) [Relative time] 1.1 {INR} [facility] Ketones Test strip Ql (U)Ord ered By: Kal Mcdonald on 11-27-2024 Ketones Ql (U) Negative Negative [facility] - Chemistry and C hemistry - challengeOrdered By: Kal Mcdonald on 11-27-2024 AST [Catalytic activity/Vol] 24 U/L <38 [facility] Lactic Acidon 11-27-2024 Lactate [Moles/Vol] 1.2 mmol/L Normal 0.0-2.0 [facility] Comment on above: Order Comment: Y Performed By: #### M 100.4001, M100.3000, M100.2000 #### [facility] [address] [place], [address] Lactic acid measurementOrder ed By: Kal Mcdonald on 11-27-2024 Lactate [Moles/Vol] 1.2 mmol/L 0.0-2.0 [facility] MCV (mean corpuscular volume ) determinationOrdered By: Kal Mcdonald on 11-27-2024 MCV (RBC) [Entitic vol] 94.1 fL High 80-94 [facility] MR/POSTOP.ANEon 11-27-2024 MR/POSTOP.ANE [facility] Medical Records Department [address] [place] [address] Anesthesia Postop Eval I 11/27/24 2301 MR#: [id number] Acct: [id number] Name: DONELL HERRMANN Rep #: [id number] : 1950 74 From: Devonte Arevalo MD PCP: Dr. Guilherme Erickson MD Status:ADM IN Y Race: C Location: [place] [id number] Anesthesia: Postop Eval I Current Vital Signs Temperature: 99.6 F Pulse Rate: 77 Blood Pressure: 130/60 Respiratory Rate: 16 Pulse Ox: 94 Oxygen Delivery Method: Nasal Cannula Oxygen Flow Rate (L/min): 2 Assessment Airway patent: Yes Spontaneous unlabored respirations: Yes Mental status: Asleep (Arousable) nausea: No Vomiting: No Anesthesia Complication: No Fluid Hydration Crystalloid volume administer (ml): 700 Total IV fluid infused: 700 Progress Note Anesthesia document: Postop Eval 1 completed: Yes 11/27/242303 Date Devonte Arevalo MD Cosigner Signature: Date CC: Signed Normal [facility] MR/[id number] 11-27-2024 [facility] Medical Records Department [address] [place] [id number] Anesthesia Postop Eval II 11/27/242319 MR#: [id number] Acct: [id number] Name: DONELL HERRMANN Rep #: [id number] : 1950 74 From: Devonte Arevalo MD PCP: Dr. Guilherme Erickson MD Status:ADM IN Y Race: C Location: [place] [address]-1 Anesthesia Postop Eval I Sum Postop Eval Completion status Anesthesia document: Postop Eval 1 completed: Yes Anesthesia Postop Eval I Summary Anesthesia Postop Eval I Summary: Anesthesia Postop Eval I: Assessment Summary Airway patent Yes 11/27/24 23:04 Spontaneous unlabored Yes 11/27/24 23:04 respirations Mental status Asleep - Arousable 11/27/24 23:04 nausea No 11/27/24 23:04 Vomiting No 11/27/24 23:04 Anesthesia Postop Eval I: Fluid Summary Crystalloid volume administer 700 11/27/24 23:04 (ml) Colloids volume administered ( ml) Blood Product volume administered (ml) Total IV fluid infused 700 11/27/24 23:04 Anesthesia Postop Eval I: Summary Notes Anesthesia Complication No 11/27/24 23:04 Anesthesia Complication Comment: Post-operative progress note Anesthesia: Postop Eval II Evaluation Mental status: Awake and Calm Pain Level: 1 nausea: No Vomiting: No Complications Anesthesia Complication: No 11/27/242319 Date Devonte Jaimesignbimal Signature: Date CC: Signed Normal [facility] Mean corpuscular hemoglobin (MCH) determinationOrdered By: Kal Mcdonald on 11-27-2024 MCH (RBC) [Entitic mass] 31.4 pg 27.0-32.0 [facility] Mean corpuscular hemoglobin concentration (MCHC) determinationOrdered By: Kal Mcdonald on 11-27-2024 MCHC (RBC) [Mass/Vol] 33.4 g/dL 32-36 [facility] Mean platelet volume determi nationOrdered By: Kal Mcdonald on 11-27-2024 Platelet mean volume (Bld) [Entitic vol] 10.7 fL 6.2-12.0 [facility] Microscopic analysis of urin e for red blood cells (RBC)Ordered By: Kal Mcdonald on 11-27-2024 Microscopic analysis of urine for red blood cells (RBC) 0-5 SEEN /hpf 0-5 [facility] Monocyte percentageOrdered B y: Kal Mcdonald on 11-27-2024 Monocytes/100 WBC (Bld) 8.0 % 0-10 [facility] Mucus LM Ql (Urine sed)Order ed By: Kal Mcdonald on 11-27-2024 Mucus Ql (Urine sed) 0 SEEN /hpf [facility] Neutrophil percentageOrdered By: Kal Mcdonald on 11-27-2024 Neutrophils/100 WBC (Bld) 84.9 % High 47-70 [facility] Nitrite Test strip Ql (U)Ord ered By: Kal Mcdonald on 11-27-2024 Nitrite Ql (U) Negative Negative [facility] Nucleated red blood cell per centageOrdered By: Kal Mcdonald on 11-27-2024 Nucleated RBC/100 WBC (Bld) [Ratio] 0 % 0-5 [facility] Operative Reporton Operative Report [facility] Medical Records Department [address] [place] [address] Operative Report 11/27/24 2258 MR#: [id number] Acct: [id number] Name: DONELL HERRMANN Rep #: [id number] : 1950 74 From: Ketan Parry MD PCP: Dr. Guilherme Erickson MD Status:ADM IN Location: [facility] [id number] Procedures Digestive 40xxx-49xxx: [id number] Laparoscopy appendectomy Operative Report (Standard) Operative Information Date of Procedure: 11/27/24 Pre-Operative Diagnosis: Acute appendicitis Post-Operative Diagnosis: Acute, complicated appendicitis Surgery/Procedure Performed: Laparoscopic appendectomy with partial cecectomy paymaster of purses: No Type of Anesthesia: General/Supplemental RN Documented Start/Stop Times: Operation Date: 11/27/24 20:50 Case Time Anesthesia Start 11/27/24 20:44 Into Room 11/27/24 20:44 Procedure Start 11/27/24 21:15 Procedure End 11/27/24 22:48 Anesthesia End 11/27/24 22:56 Out of Room 11/27/24 22:56 Into Recovery 11/27/24 23:00 Out of Recovery 11/27/24 23:32 Procedure Start Time: 21:15 Procedure Stop Time: 22:48 Select all DRAINS/GRAFTS/IMPLANTS that apply: Drains (19 Mauritanian round Jacek drain) Drain details: Positioned in suprapubic port site Estimated Blood Loss: 50 Specimen collected: Yes Description of specimen(s) removed: Appendix and accompanying cecum Description of surgery: After appropriate identification in the preoperative holding area, the patient was brought to the operating room and placed supine on the operating room table. Antibiotics had been preoperatively administered by emergency medicine. SCDs were placed and connected. Patient was then induced with general endotracheal anesthetic. The abdomen was prepped and draped in usual sterile fashion. Formal timeout was conducted to confirm both the patient and the procedure. A supraumbilical incision was made and carried down to the level of the fascia which was sharply opened. After opening the peritoneum in like fashion a finger sweep was made to confirm position, and a balloon trocar was placed and pneumoperitoneum was established to 15 mmHg. Patient was positioned in Trendelenburg with the left side down. 2 additional 5 mm trocars were placed in the left lower quadrant and suprapubic positions. The peritoneum was inspected and there were no signs of inadvertent injury from this Arreaga entry. The appendix was not immediately visualized as there appeared to be walling off of the right lower quadrant with adhesions between the mesoappendix and the abdominal sidewall. Once these adhesions were gently teased away from the sidewall the appendix was visualized immediately with severe gangrenous inflammation of the base with evident perforation and evan purulence/stool directly adjacent to the appendiceal base. Owing to the severity in the inflammation at the base of the appendix it was also exceptionally densely adherent to the retroperitoneum. Therefore a process of tedious blunt dissection followed by application of the laparoscopic harmonic scalpel was used to mobilize the base of the appendix off the retroperitoneum taking care to avoid injury to the right common iliac artery at the pelvic brim. The mesoappendix was divided with application of a laparoscopic harmonic. It became evident that I would need to mobilize a portion of the cecum as well to find a landing zone for our staple line that was within healthy enough tissue. Thus the cecum was mobilized laterally along the white line of Toldt using a combination of blunt dissection and the harmonic scalpel. Then the base of the appendix/cecum was sealed and amputated with the use of an Endo KATHY stapler (a total of 3 loads were required to complete this transection). The appendix and accompanying colon was placed in an Endo Catch bag. The staple line was inspected for hemostasis. The right lower quadrant was copiously irrigated with a liter of sterile saline using the suction physiotherapy aide device. As much effluent as could be reasonably retrieved was retrieved with the suction physiotherapy aide device. I then fed a 19 Mauritanian round Jacek drain into the peritoneal cavity and brought the drainage and out through the suprapubic port site. The drain was positioned in the right lower quadrant in our surgical bed. It was secured at the skin with a 3-0 nylon suture. After hemostasis was confirmed again at the staple line, the appendix/colon was removed from the umbilical port site. Pneumoperitoneum was then evacuated and the supraumbilical port site fascia was closed with #1 Vicryl in a [id number] fashion. The port sites were infiltrated with a total volume of 30 mL 0.25% bupivacaine with epinephrine. The skin of each port site was closed with 4-0 Monocryl in a subcuticular fashion. Steri-Strips and OpSite dressings were applied. A split gauze was positioned about the drain exit site (more content not included)... Normal [facility] Partial Thromboplast Timeon 11-27-2024 aPTT Coag (Bld) [Time] 29.0 s Normal 24.1-36.2 [facility] Comment on above: Performed By: #### M 100.4001, M100.3000, #### [facility] [address] [facility] [place], [place], [id number] Platelet countOrdered By: Mariano Mcdonald on 11-27-2024 Platelets (Bld) [#/Vol] 202 10*3/uL 150-450 [facility] Potassium measurement (mass/ volume)Ordered By: Kal Mcdonald on 11-27-2024 Potassium (Unsp spec) [Mass/Vol] 3.5 mmol/L 3.3-5.1 [facility] Protein Test strip Ql (U)Ord ered By: Kal Mcdonald on 11-27-2024 Protein Ql (U) 100 mg/dl High Negative [facility] Prothrombin Time w/INRon INR Coag (PPP) [Relative time] 1.1 {INR} Normal [facility] Comment on above: Performed By: #### M 100.4001, M100.3000, M1 #### [facility] [address] [place], [address] PT Coag (PPP) [Time] 14.1 s Normal 11.7-14.9 [facility] Comment on above: Performed By: #### M 100.4001, M100.3000, M100.2000 #### [facility] [address] [place], [address] Prothrombin timeOrdered By: Kal Mcdonald on 11-27-2024 PT Coag (PPP) [Time] 14.1 s 11.7-14.9 [facility] RBC Auto (Bld) [#/Vol]Ordere d By: Kal Mcdonald on 11-27-2024 RBC (Bld) [#/Vol] 4.39 10*6/uL Low 4.6-6.2 [facility] Serum creatinine measurement (mass/volume)Ordered By: Kal Mcdonald on 11-27-2024 Creatinine [Mass/Vol] 1.42 mg/dL High 0.70-1.20 [facility] Serum globulin measurementOr dered By: Kal Mcdonald on 11-27-2024 Globulin (S) [Mass/Vol] 4.6 g/dL High 2.2-4.2 [facility] Serum glucose measurement (m ass/volume)Ordered By: Kal Mcdonald on 11-27-2024 Glucose [Mass/Vol] 111 mg/dL High 70-99 [facility] Serum or plasma alanine rosario otransferase (ALT) measurementOrdered By: Kal Mcdonald on 11-27-2024 ALT [Catalytic activity/Vol] 20 U/L <47 [facility] Serum or plasma albumin jessica urement (mass/volume)Ordered By: Kal Mcdonald on 11-27-2024 Albumin [Mass/Vol] 4.7 g/dL 3.4-4.8 [facility] Serum or plasma albumin/glob ulin mass ratioOrdered By: Kal Mcdonald on 11-27-2024 Albumin/Globulin [Mass ratio] 1.0 {ratio} 0.9-2.4 [facility] Serum or plasma alkaline zulma sphatase measurementOrdered By: Kal Mcdonald on 11-27-2024 ALP [Catalytic activity/Vol] 56 U/L 40-129 [facility] Serum or plasma calcium jessica urement (mass/volume)Ordered By: Kal Mcdonald on 11-27-2024 Calcium [Mass/Vol] 9.7 mg/dL 7.6-11.0 [facility] Serum or plasma urea nitroge n measurement (mass/volume)Ordered By: Kal Mcdonald on 11-27-2024 Urea nitrogen [Mass/Vol] 23 mg/dL High 4-19 [facility] Sodium levelOrdered By: Eva Mcdonald on 11-27-2024 Sodium [Moles/Vol] 134 mmol/L 133-145 [facility] Squamous epithelial cells de tection in urine sediment by light microscopyOrdered By: Kal Mcdonald on 11-27-2024 Epithelial cells.squamous LM Ql (Urine sed) 0-5 SEEN /hpf 0-5 [facility] Surgery Specimen Level IIIon 11-27-2024 Surgery Specimen Level III Patient Age/Sex Location Account Attending Physician DONELL HERRMANN 74/M MS3 [id number] Dr. Ketan Parry MD Specimen: [id number] Received: 11/28/24 Status: ANDREW Sotelo Num: [id number] Spec Type: APPENDIX Subm Dr: Dr. Ketan Parry MD HEADER OPERATION: Laparoscopic appendectomy PRE-OP DIAGNOSIS: Acute appendicitis TISSUE SUBMITTED: A- Appendix MICROSCOPIC DIAGNOSIS A. Appendix appendectomy: - Acute appendicitis with gross perforation. MICROSCOPIC DESCRIPTION Slides are reviewed. GROSS DESCRIPTION A. Received in formalin labeled with the patient's name and date of . Designated as appendix is a 12.5 x 1.0 cm dusky appendix with up to 2.3 cm of attached, congested mesoappendix. There is a central defect nearly transecting the specimen. There is focal serosal fibrinous exudate. The margin is inked black and shaved. Sectioning reveals dark red-brown focally necrotic mucosa devoid of luminal contents. Career Education Teacher sections are submitted in 2 cassettes as follows: A1: Margins, cross-sectionsA2: Distal tip, cross-section UT 11/28/2024 CPT:46131 Patient Age/Sex Location Account Attending Physician ROGERSDONELL COFFMAN 74/M MS3 [id number] Dr. Ketan Parry MD Signed (signature on file) Dr. Tanya Mehta MD 12/03/24 1327 Normal [facility] Comment on above: Performed By: #### M 100.4001, M100.3000, #### [facility] [address] [facility] [place], [place], [address] T4 Free Directon 11-27-2024 T4 FREE DIRECT 1.00 ng/dL Normal 0.76-1.46 [facility] Comment on above: Performed By: #### M 100.4001, M100.3000, #### [facility] [address] [place], [place], [address] T4 freeOrdered By: Kal yu on 11-27-2024 Free T4 [Mass/Vol] 1.00 ng/dL 0.76-1.46 [facility] TSH DL <= 0.005 mIU/L QnOrde red By: Kal Mcdonald on 11-27-2024 TSH Qn 2.420 uIU/mL 0.300-4.200 [facility] Thyroid Stim Hormone (TSH)on 11-27-2024 TSH 2.420 uIU/mL Normal 0.300-4.200 [facility] Comment on above: Performed By: #### M 100.4001, M100.3000, M100.2000 #### [facility] [address] [place], [address] Total proteinOrdered By: Kendell Mcdonald on 11-27-2024 Protein [Mass/Vol] 9.3 g/dL High 5.9-8.4 [facility] Urinalysis, Completeon 11-27 EPI,SQUAMOUS 0-5 SEEN Normal 0-5 [facility] Comment on above: Order Comment: PATRICIA CTOR TO SPECIFY Performed By: #### L 400.0001, M1.0 #### [facility] [address] [place], [address] RBC 0-5 SEEN Normal 0-5 [facility] Comment on above: Order Comment: PATRICIA CTOR TO SPECIFY Performed By: #### L 400.0001, .0 #### [facility] [address] [place], [address] WBC 0-5 SEEN Normal 0-5 [facility] Comment on above: Order Comment: COLLE CTOR TO SPECIFY Performed By: #### L 400.0001, M1.0 #### [facility] [address] [place], [address] BACTERIA 0 SEEN Normal None Seen [facility] Comment on above: Order Comment: PATRICIA CTOR TO SPECIFY Performed By: #### L 400.0001, .0 #### [facility] [address] [place], [address] Mucus Ql (Urine sed) 0 SEEN Normal [facility] Comment on above: Order Comment: COLLE CTOR TO SPECIFY Performed By: #### L 400.0001, M1.0 #### [facility] [address] [place], [address] Urine clarityOrdered By: Kendell Mcdonald on 11-27-2024 Clarity (U) Clear Clear [facility] Urine color determinationOrd ered By: Kal Mcdonald on 11-27-2024 Color (U) Straw Yellow [facility] Urine cultureOrdered By: Kendell Mcdonald on 11-27-2024 Bacteria identified Cx Nom (U) Culture exhibits no growth. [facility] Urine glucose detectionOrder ed By: Kal Mcdonald on 11-27-2024 Glucose Ql (U) Normal mg/dl Normal [facility] Urine leukocyte esterase det ection by dipstickOrdered By: Kal Mcdonald on 11-27-2024 Leukocyte esterase Test strip Ql (U) Negative Negative [facility] Urine pHOrdered By: Kal allison on 11-27-2024 pH (U) 6.0 [pH] 5.0 - 8.0 [facility] Urine sediment bacteria coun t by microscopy (number/high power field)Ordered By: Kal Mcdonald on 11-27-2024 Bacteria LM.HPF (Urine sed) [#/Area] 0 /[HPF] None Seen [facility] Urine specific gravity measu rementOrdered By: Kal Mcdonald on 11-27-2024 Specific gravity (U) [Rel density] 1.015 1.002-1.030 [facility] Urine urobilinogen measureme ntOrdered By: Kal Mcdonald on 11-27-2024 Urobilinogen Ql (U) Normal mg/dl Normal [facility] White blood cell (WBC) count Ordered By: Kal Mcdonald on 11-27-2024 WBC (Bld) [#/Vol] 17.9 10*3/uL High 4.4-11.0 [facility] White blood cell countOrdere d By: Kal Mcdonald on 11-27-2024 White blood cell count 0-5 SEEN /hpf 0-5 [facility] Office Visit Reporton 2024 Office Visit Report [facility] [address] [place] [address] OFFICE VISIT Date of Service: 11/11/24 MR#: [id number] Acct: [id number] Patient: DONELL HERRMANN Rep #: [id number] : 1950 Provider: NEFTALI Davis Age/Sex: 74/M Location: [facility] Status: Signed Intake Vital Signs 08/27/21 12:32 [...] Reasons: CONCERN FOR SHINGLES Chief Complaint: rash Freight Claim Investigator Required: No Is patient in pain?: No Allergies pneumococcal vaccine (From Pneumovax-23) Adverse Reaction (Verified 11/11/24 10:32) rash on arms Have you fallen in the past year?: No Nurse's Note: rash to left upper chest and inferior neck x 3 days with itching, no pain. pt denies additional areas of concern. pt concerned for shingles. PFSH Medical History (Updated 11/11/24 @ 10:43 by NEFTALI Robert) Hypothyroidism HTN (hypertension) Surgical History (Updated 11/11/24 @ 10:34 by aKy Herr) No significant past surgical history Social [...] [place] Signature: Date (if applicable) CC: Normal [facility] Absolute lymphocyte countOrd ered By: Guilherme Erickson on 11-08-2024 Lymphocytes Auto (Unsp spec) [#/Vol] 1.42 10*3/uL 0.83-4.51 [facility] Absolute neutrophil countOrd ered By: Guilherme Erickson on 11-08-2024 Neutrophils (Bld) [#/Vol] 4.9 10*3/uL 2.0-7.7 [facility] Anion gap in Serum or Plasma Ordered By: Guilherme Erickson on 11-08-2024 Anion gap [Moles/Vol] 11 mmol/L 5-15 [facility] Automated lymphocyte count a s percentage of total leukocytesOrdered By: Guilherme Erickson on 11-08-2024 Lymphocytes/100 WBC Auto (Unsp spec) 19.1 % 19-41 [facility] BUN/creatinine ratioOrdered By: Guilherme Erickson on 11-08-2024 Urea nitrogen/Creatinine [Mass ratio] 23.5 mg/mg High - [facility] Basophil percentageOrdered B y: Guilherme Erickson on 11-08-2024 Basophils/100 WBC (Bld) 0.4 % 0- [facility] Bilirubin, totalOrdered By: Guilherme Erickson on 11-08-2024 Bilirubin [Mass/Vol] 0.61 mg/dL 0.00-1.30 [facility] CBC W/Diff, Automatedon 10-30 Absolute Lymph 1.42 X10 3/uL Normal 0.83-4.51 [facility] Comment on above: Order Comment: Order Date: 10/22/24Order Info: 0184-1 - CBCD Performed By: #### M 100.4001, M100.3000, #### [facility] [address] [place], [address] Absolute Neut 4.9 X10 3/uL Normal 2.0-7.7 [facility] Comment on above: Order Comment: Order Date: 10/22/24Order Info: 0184-1 - CBCD Performed By: #### M 100.4001, M100.3000, #### [facility] [address] [place], [address] Basophils/100 WBC (Bld) 0.4 % Normal 0-1 [facility] Comment on above: Order Comment: Order Date: 10/22/24Order Info: 0184-1 - CBCD Performed By: #### M 100.4001, M100.3000, M1 #### [facility] [address] [place], [address] Eosinophils/100 WBC (Bld) 2.3 % Normal 0-5 [facility] Comment on above: Order Comment: Order Date: 10/22/24Order Info: 0184-1 - CBCD Performed By: #### M 100.4001, M100.3000, #### [facility] [address] [place], [address] Erythrocyte distribution width (RBC) [Ratio] 14.5 % Normal 11.6-14.6 [facility] Comment on above: Order Comment: Order Date: 10/22/24Order Info: 0184-1 - CBCD Performed By: #### M 100.4001, M100.3000, #### [facility] [address] [place], [address] Hematocrit (Bld) [Volume fraction] 40.2 % Normal 40-54 [facility] Comment on above: Order Comment: Order Date: 10/22/24Order Info: 0184- - CBCD Performed By: #### M 100.4001, M100.3000, #### [facility] [address] [place], [address] Hemoglobin (Bld) [Mass/Vol] 13.1 g/dL Normal 13.0-16.5 [facility] Comment on above: Order Comment: Order Date: 10/22/24Order Info: 0184- - CBCD Performed By: #### M 100.4001, M100.3000, #### [facility] [address] [place], [address] IG% 0.500 Normal 0.0-0.9 [facility] Comment on above: Order Comment: Order Date: 10/22/24Order Info: 0184-1 - CBCD Result Comment: IG% - Immature Granulocytes (promyelocytes, myelocytes and metamyelocytes) > 1% indicates that a LEFT SHIFT is Present. Performed By: #### M 100.4001, M100.3000, #### [facility] [address] [place], [address] Lymphocytes/100 WBC (Bld) 19.1 % Normal 19-41 [facility] Comment on above: Order Comment: Order Date: 10/22/24Order Info: 0184-1 - CBCD Performed By: #### M 100.4001, M100.3000, M1.1999 #### [facility] [address] [place], [address] MCH (RBC) [Entitic mass] 31.7 pg Normal 27.0-32.0 [facility] Comment on above: Order Comment: Order Date: 10/22/24Order Info: 0184-1 - CBCD Performed By: #### M 100.4001, M100.3000, .1999 #### [facility] [address] [place], [address] MCHC (RBC) [Mass/Vol] 32.6 g/dL Normal 32-36 [facility] Comment on above: Order Comment: Order Date: 10/22/24Order Info: 018- - CBCD Performed By: #### M 100.4001, M100.3000, #### [facility] [address] [place], [address] MCV (RBC) [Entitic vol] 97.3 fL High 80-94 [facility] Comment on above: Order Comment: Order Date: 10/22/24Order Info: 0184-1 - CBCD Performed By: #### M 100.4001, M100.3000, #### [facility] [address] [place], [address] Monocytes/100 WBC (Bld) 12.4 % High 0-10 [facility] Comment on above: Order Comment: Order Date: 10/22/24Order Info: 0184-1 - CBCD Performed By: #### M 100.4001, M100.3000, #### [facility] [address] [place], [address] Neutrophils/100 WBC (Bld) 65.3 % Normal 47-70 [facility] Comment on above: Order Comment: Order Date: 10/22/24Order Info: 0184-1 - CBCD Performed By: #### M 100.4001, M100.3000, .1999 #### [facility] [address] [place], [address] Nucleated RBC (Bld) [#/Vol] 0 10*3/uL Normal 0-5 [facility] Comment on above: Order Comment: Order Date: 10/22/24Order Info: 018- - CBCD Performed By: #### M 100.4001, M100.3000, .1999 #### [facility] [address] [place], [place], [id number] Platelet mean volume (Bld) [Entitic vol] 12.1 fL High 6.2-12.0 [facility] Comment on above: Order Comment: Order Date: 10/22/24Order Info: [id number]- - CBCD Performed By: #### M 100.4001, M100.3000, #### [facility] [address] [place], [address] Platelets (Bld) [#/Vol] 195 10*3/uL Normal 150-450 [facility] Comment on above: Order Comment: Order Date: 10/22/24Order Info: [id number]- - CBCD Performed By: #### M 100.4001, M100.3000, #### [facility] [address] [place], [address] RBC (Bld) [#/Vol] 4.13 10*6/uL Low 4.6-6.2 [facility] Comment on above: Order Comment: Order Date: 10/22/24Order Info: [id number] - CBCD Performed By: #### M 100.4001, M100.3000, #### [facility] [address] [place], [address] RDW SD 51.7 fl High 35.1-43.9 [facility] Comment on above: Order Comment: Order Date: 10/22/24Order Info: [id number] - CBCD Performed By: #### M 100.4001, M100.3000, #### [facility] [address] [place], [address] WBC (Bld) [#/Vol] 7.4 10*3/uL Normal 4.4-11.0 [facility] Comment on above: Order Comment: Order Date: 10/22/24Order Info: [id number] - CBCD Performed By: #### M 100.4001, M100.3000, #### [facility] [address] [place], [place], [address] Calculated very low density lipoprotein (VLDL) cholesterol measurementOrdered By: Guilherme Erickson on 11-08-2024 Calculated very low density lipoprotein (VLDL) cholesterol measurement 19 mg/dL 5-40 [facility] Carbon dioxide, total [Moles /volume] in Central venous bloodOrdered By: Guilherme Erickson on 11-08-2024 CO2 [Moles/Vol] 23.0 mmol/L 21.0-32.0 [facility] Chloride assayOrdered By: Bimal Erickson on 11-08-2024 Chloride [Moles/Vol] 102 mmol/L 98-108 [facility] Comprehensive Metabolic Prof ilon 11-08-2024 Albumin/Globulin [Mass ratio] 1.1 {ratio} Normal 0.9-2.4 [facility] Comment on above: Order Comment: Order Date: 10/22/24Order Info: [id number] - CMPOrder Info: [id number] - LIPIDOrder Info: [id number] - TSHOrder Info: [id number] - PSA Performed By: #### M 100.4001, M100.3000, #### [facility] [address] [place], [place], [id number] ALK PHOS 55 U/L Normal 40-129 [facility] Comment on above: Order Comment: Order Date: 10/22/24Order Info: [id number] - CMPOrder Info: [id number] - LIPIDOrder Info: [id number] - TSHOrder Info: [id number] - PSA Performed By: #### M 100.4001, M100.3000, #### [facility] [address] [place], [address] ALT [Catalytic activity/Vol] 21 U/L Normal <=46 [facility] Comment on above: Order Comment: Order Date: 10/22/24Order Info: [id number] - CMPOrder Info: [id number] - LIPIDOrder Info: [id number] - TSHOrder Info: [id number] - PSA Performed By: #### M 100.4001, M100.3000, #### [facility] [address] [place], [address] AST [Catalytic activity/Vol] 29 U/L Normal <=37 [facility] Comment on above: Order Comment: Order Date: 10/22/24Order Info: [id number] - CMPOrder Info: [id number] - LIPIDOrder Info: [id number] - TSHOrder Info: [id number] - PSA Performed By: #### M 100.4001, M100.2999, #### [facility] [address] [place], [address] Bilirubin [Mass/Vol] 0.61 mg/dL Normal 0.00-1.30 [facility] Comment on above: Order Comment: Order Date: 10/22/24Order Info: [id number] - CMPOrder Info: [id number] - LIPIDOrder Info: [id number] - TSHOrder Info: [id number] - PSA Performed By: #### M 100.4001, M100.3000, #### [facility] [address] [place], [address] Calcium [Mass/Vol] 9.2 mg/dL Normal 7.6-11.0 [facility] Comment on above: Order Comment: Order Date: 10/22/24Order Info: [id number] - CMPOrder Info: [id number] - LIPIDOrder Info: [id number] - TSHOrder Info: [id number] - PSA Performed By: #### M 100.4001, M100.3000, M1.1999 #### [facility] [address] [place], [address] Chloride [Moles/Vol] 102 mmol/L Normal 98-108 [facility] Comment on above: Order Comment: Order Date: 10/22/24Order Info: [id number] - CMPOrder Info: [id number] - LIPIDOrder Info: [id number] - TSHOrder Info: [id number] - PSA Performed By: #### M 100.4001, M100.3000, #### [facility] [address] [place], [address] CO2 [Moles/Vol] 23.0 mmol/L Normal 21.0-32.0 [facility] Comment on above: Order Comment: Order Date: 10/22/24Order Info: [id number] - CMPOrder Info: [id number] - LIPIDOrder Info: [id number] - TSHOrder Info: [id number] - PSA Performed By: #### M 100.4001, M100.3000, #### [facility] [address] [place], [address] GAP 11 Normal 5-15 [facility] Comment on above: Order Comment: Order Date: 10/22/24Order Info: [id number] - CMPOrder Info: [id number] - LIPIDOrder Info: [id number] - TSHOrder Info: [id number] - PSA Performed By: #### M 100.4001, M100.3000, #### [facility] [address] [place], [address] Potassium [Moles/Vol] 4.5 mmol/L Normal 3.3-5.1 [facility] Comment on above: Order Comment: Order Date: 10/22/24Order Info: [id number] - CMPOrder Info: [id number] - LIPIDOrder Info: [id number] - TSHOrder Info: [id number] - PSA Performed By: #### M 100.4001, M100.3000, M1.1999 #### [facility] [address] [place], [address] Sodium [Moles/Vol] 137 mmol/L Normal 133-145 [facility] Comment on above: Order Comment: Order Date: 10/22/24Order Info: [id number] - CMPOrder Info: [id number] - LIPIDOrder Info: [id number] - TSHOrder Info: [id number] - PSA Performed By: #### M 100.4001, M100.3000, #### [facility] [address] [place], [address] Albumin [Mass/Vol] 4.4 g/dL Normal 3.4-4.8 [facility] Comment on above: Order Comment: Order Date: 10/22/24Order Info: [id number] - CMPOrder Info: [id number] - LIPIDOrder Info: 63 - TSHOrder Info: [id number] - PSA Performed By: #### M 100.4001, M100.3000, #### [facility] [address] [place], [address] BUN/CRE 23.5 RATIO High 10-20 [facility] Comment on above: Order Comment: Order Date: 10/22/24Order Info: 07-1 - CMPOrder Info: [id number] - LIPIDOrder Info: [id number] - TSHOrder Info: [id number] - PSA Performed By: #### M 100.4001, M100.3000, .1999 #### [facility] [address] [place], [address] Creatinine [Mass/Vol] 1.38 mg/dL High 0.70-1.20 [facility] Comment on above: Order Comment: Order Date: 10/22/24Order Info: [id number] - CMPOrder Info: [id number] - LIPIDOrder Info: 3 - TSHOrder Info: [id number] - PSA Performed By: #### M 100.4001, M100.3000, M1.1999 #### [facility] [address] [place], [address] GFR/1.73 sq M.predicted among non-blacks MDRD (S/P/Bld) [Vol rate/Area] 53 mL/min/{1.73_m2} Low >60 [facility] Comment on above: Order Comment: Order Date: 10/22/24Order Info: [id number]- - CMPOrder Info: [id number] - LIPIDOrder Info: [id number] - TSHOrder Info: [id number] - PSA Result Comment: mL/m in/1.73m2 CKD-EPI Creatinine Equation (2020) Performed By: #### M 100.4001, M100.3000, #### [facility] [address] [place], [address] Globulin (S) [Mass/Vol] 4.1 g/dL Normal 2.2-4.2 [facility] Comment on above: Order Comment: Order Date: 10/22/24Order Info: [id number]- - CMPOrder Info: [id number] - LIPIDOrder Info: 3 - TSHOrder Info: [id number] - PSA Performed By: #### M 100.4001, M100.3000, #### [facility] [address] [place], [address] Glucose [Mass/Vol] 105 mg/dL High 70-99 [facility] Comment on above: Order Comment: Order Date: 10/22/24Order Info: [id number] - CMPOrder Info: [id number] - LIPIDOrder Info: 3 - TSHOrder Info: [id number] - PSA Performed By: #### M 100.4001, M100.3000, M1.1999 #### [facility] [address] [place], [place], [address] T PROT 8.4 g/dL Normal 5.9-8.4 [facility] Comment on above: Order Comment: Order Date: 10/22/24Order Info: [id number] - CMPOrder Info: [id number] - LIPIDOrder Info: [id number] - TSHOrder Info: [id number] - PSA Performed By: #### M 100.4001, M100.3000, M100.1999 #### [facility] [address] [place], [place], [address] Urea nitrogen [Mass/Vol] 32 mg/dL High 4-19 [facility] Comment on above: Order Comment: Order Date: 10/22/24Order Info: [id number] - CMPOrder Info: [id number] - LIPIDOrder Info: [id number] - TSHOrder Info: [id number] - PSA Performed By: #### M 100.4001, M100.3000, M100.1999 #### [facility] [address] [place], [place], [id number] Eosinophil percentageOrdered By: Guilherme Erickson on 11-08-2024 Eosinophils/100 WBC (Bld) 2.3 % 0-5 [facility] Erythrocyte distribution wid th ratioOrdered By: Guilherme Erickson on 11-08-2024 Erythrocyte distribution width (RBC) [Ratio] 14.5 % 11.6-14.6 [facility] Erythrocyte distribution wid th standard deviationOrdered By: Guilherme Erickson on 11-08-2024 Erythrocyte distribution width (RBC) [Ratio] 51.7 fl High 35.1-43.9 [facility] Glomerular filtration rate ( GFR) estimation/1.73 sq m using serum, plasma, or whole bOrdered By: Guilherme Erickson on 11-08-2024 GFR/1.73 sq M.predicted among non-blacks MDRD (S/P/Bld) [Vol rate/Area] 53 mL/min/{1.73_m2} Low >60 [facility] Comment on above: mL/min/1.73m2 CKD-EP I Creatinine Equation (2020) Hematocrit Auto (Bld) [Volum e fraction]Ordered By: Guilherme Erickson on 11-08-2024 Hematocrit (Bld) [Volume fraction] 40.2 % 40-54 [facility] Hemoglobin A1con 11-08-2024 HbA1c (Bld) [Mass fraction] 6.2 % High <=5.6 [facility] Comment on above: Order Comment: Order Date: 10/22/24Order Info: [id number] - A1C Result Comment: Norm al < 5.7 % Prediabetic 5.7 - 6.4 % Diabetic >or= 6.5 % Please note range changes. Performed By: #### M 100.4001, M100.3000, M100.2000 #### [facility] [address] [place], [place], [id number] Hemoglobin A1c percentageOrd ered By: Guilherme Erickson on 11-08-2024 HbA1c (Bld) [Mass fraction] 6.2 % High <5.7 [facility] Comment on above: Normal < 5.7 % Predi abetic 5.7 - 6.4 % Diabetic >or= 6.5 % Please note range changes. Hemoglobin measurementOrdere d By: Guilherme Erickson on 11-08-2024 Hemoglobin (Bld) [Mass/Vol] 13.1 g/dL 13.0-16.5 [facility] Immature granulocytes/100 WB C Auto (Bld)Ordered By: Guilherme Erickson on 11-08-2024 Immature granulocytes/100 WBC (Bld) 0.500 % 0.0-0.9 [facility] Comment on above: IG% - Immature Granu locytes (promyelocytes, myelocytes and metamyelocytes) > 1% indicates that a LEFT SHIFT is Present. LDL calc ser/plasOrdered By: Guilherme Erickson on 11-08-2024 Cholesterol in LDL [Mass/Vol] 114 mg/dL [facility] Comment on above: Pgbkyfvkyt=273-377 m g/dL & Higher Hrxe=494 mg/dL or greater Laboratory - Chemistry and C hemistry - challengeOrdered By: Guilherme Erickson on 11-08-2024 AST [Catalytic activity/Vol] 29 U/L <38 [facility] Lipid Profileon 11-08-2024 CHOL:HDL 5.42 Normal [facility] Comment on above: Order Comment: Order Date: 10/22/24Order Info: [id number] - CMPOrder Info: [id number] - LIPIDOrder Info: [id number] - TSHOrder Info: [id number] - PSA Performed By: #### M 100.4001, M100.2999, #### [facility] [address] [place], [address] Cholesterol [Mass/Vol] 162 mg/dL Normal <=200 [facility] Comment on above: Order Comment: Order Date: 10/22/24Order Info: 07-1 - CMPOrder Info: [id number] - LIPIDOrder Info: [id number] - TSHOrder Info: [id number] - PSA Result Comment: Chol esterol level, Desirable <200 mg/dL Borderline high cholesterol 200-239 mg/dL High cholesterol >=240 mg/dL Recommendations of the NCEP Adult Treatment Panel for the following risk-cutoff thresholds for the [place] population. Performed By: #### M 100.4001, M1.2999, #### [facility] [address] [place], [address] Cholesterol in HDL [Mass/Vol] 30 mg/dL Low [facility] Comment on above: Order Comment: Order Date: 10/22/24Order Info: [id number] - CMPOrder Info: [id number] - LIPIDOrder Info: [id number] - TSHOrder Info: [id number] - PSA Result Comment: Eva onal Cholesterol Education Program (NCEP) guidelines: <40 mg/dL: Low HDL-cholesterol (major risk factor for CHD) >= 60 mg/dL: High HDL-cholesterol (negative risk factor for CHD) HDL-cholesterol is affected by a number of factors, e.g. smoking, exercise, hormones, sex and age. Performed By: #### M 100.4001, M100.2999, #### [facility] [address] [place], [address] Cholesterol in LDL [Mass/Vol] 114 mg/dL Normal [facility] Comment on above: Order Comment: Order Date: 10/22/24Order Info: [id number] - CMPOrder Info: [id number] - LIPIDOrder Info: [id number] - TSHOrder Info: [id number] - PSA Result Comment: Bord qhzkfr=568-116 mg/dL Higher Ajfl=370 mg/dL or greater Performed By: #### M 100.4001, M100.3000, #### [facility] [address] [place], [place], [address] Cholesterol in VLDL [Mass/Vol] 19 mg/dL Normal 5-40 [facility] Comment on above: Order Comment: Order Date: 10/22/24Order Info: 07-1 - CMPOrder Info: [id number] - LIPIDOrder Info: 3 - TSHOrder Info: [id number] - PSA Performed By: #### M 100.4001, M100.3000, #### [facility] [address] [place], [place], [address] Triglyceride [Mass/Vol] 93 mg/dL Normal [facility] Comment on above: Order Comment: Order Date: 10/22/24Order Info: [id number] - CMPOrder Info: [id number] - LIPIDOrder Info: 3 - TSHOrder Info: [id number] - PSA Result Comment: The drugs N-Acetylcysteine and Metamizole may falsely depress this assay. Normal range: <150 mg/dL Borderline High: 150-199 mg/dL High: 200-499 mg/dL Very High: >500 mg/dL Performed By: #### M 100.4001, M100.3000, M1 #### [facility] [address] [place], [place], [id number] MCV (mean corpuscular volume ) determinationOrdered By: Guilherme Erickson on 11-08-2024 MCV (RBC) [Entitic vol] 97.3 fL High 80-94 [facility] Mean corpuscular hemoglobin (MCH) determinationOrdered By: Guilherme Erickson on 11-08-2024 MCH (RBC) [Entitic mass] 31.7 pg 27.0-32.0 [facility] Mean corpuscular hemoglobin concentration (MCHC) determinationOrdered By: Guilherme Erickson on 11-08-2024 MCHC (RBC) [Mass/Vol] 32.6 g/dL 32-36 [facility] Mean platelet volume determi nationOrdered By: Guilherme Erickson on 11-08-2024 Platelet mean volume (Bld) [Entitic vol] 12.1 fL High 6.2-12.0 [facility] Monocyte percentageOrdered B y: Guilherme Erickson on 11-08-2024 Monocytes/100 WBC (Bld) 12.4 % High 0-10 [facility] Neutrophil percentageOrdered By: Guilherme Erickson on 11-08-2024 Neutrophils/100 WBC (Bld) 65.3 % 47-70 [facility] Nucleated red blood cell per centageOrdered By: Guilherme Erickson on 11-08-2024 Nucleated RBC/100 WBC (Bld) [Ratio] 0 % 0-5 [facility] PSA,Total - Annual Screenon 11-08-2024 PSA,TOT SCREEN 1.90 ng/mL Normal 0.02-4.00 [facility] Comment on above: Order Comment: Order Date: 10/22/24Order Info: [id number] - CMPOrder Info: [id number] - LIPIDOrder Info: [id number] - TSHOrder Info: [id number] - PSA Result Comment: This [...] to confirm baseline values. Performed By: #### M 100.4001, M100.3000, M100.2000 #### [facility] [place], [address] Platelet countOrdered By: Bimal Erickson on 11-08-2024 Platelets (Bld) [#/Vol] 195 10*3/uL 150-450 [facility] Potassium measurement (mass/ volume)Ordered By: Guilherme Erickson on 11-08-2024 Potassium (Unsp spec) [Mass/Vol] 4.5 mmol/L 3.3-5.1 [facility] RBC Auto (Bld) [#/Vol]Ordere d By: Guilherme Erickson on 11-08-2024 RBC (Bld) [#/Vol] 4.13 10*6/uL Low 4.6-6.2 [facility] Screening total cholesterol/ high density lipoprotein (HDL) cholesterol ratioOrdered By: Guilherme Erickson on 11-08-2024 Cholesterol.total/Chol esterol in HDL [Mass ratio] 5.42 {ratio} [facility] Serum creatinine measurement (mass/volume)Ordered By: Guilherme Erickson on 11-08-2024 Creatinine [Mass/Vol] 1.38 mg/dL High 0.70-1.20 [facility] Serum globulin measurementOr dered By: Guilherme Erickson on 11-08-2024 Globulin (S) [Mass/Vol] 4.1 g/dL 2.2-4.2 [facility] Serum glucose measurement (m ass/volume)Ordered By: Guilherme Erickson on 11-08-2024 Glucose [Mass/Vol] 105 mg/dL High 70-99 [facility] Serum or plasma alanine rosario otransferase (ALT) measurementOrdered By: Guilherme Erickson on 11-08-2024 ALT [Catalytic activity/Vol] 21 U/L <47 [facility] Serum or plasma albumin jessica urement (mass/volume)Ordered By: Guilherme Erickson on 11-08-2024 Albumin [Mass/Vol] 4.4 g/dL 3.4-4.8 [facility] Serum or plasma albumin/glob ulin mass ratioOrdered By: Guilherme Erickson 11-08-2024 Albumin/Globulin [Mass ratio] 1.1 {ratio} 0.9-2.4 [facility] Serum or plasma alkaline zulma sphatase measurementOrdered By: Guilherme Erickson 11-08-2024 ALP [Catalytic activity/Vol] 55 U/L 40-129 [facility] Serum or plasma calcium jessica urement (mass/volume)Ordered By: Guilherme Erickson on 11-08-2024 Calcium [Mass/Vol] 9.2 mg/dL 7.6-11.0 [facility] Serum or plasma cholesterol in HDL measurement (mass/volume)Ordered By: Guilherme Erickson on 11-08-2024 Cholesterol in HDL [Mass/Vol] 30 mg/dL Low >40 [facility] Comment on above: National Cholesterol Education Program (NCEP) guidelines:<40 mg/dL: Low HDL-cholesterol (major risk factor for CHD)>= 60 mg/dL: High HDL-cholesterol (negative risk factor for CHD)HDL-cholesterol is affected by a number of factors, e.g. smoking, exercise, hormones, sex and age. Serum or plasma cholesterol measurement (mass/volume)Ordered By: Guilherme Erickson on 11-08-2024 Cholesterol [Mass/Vol] 162 mg/dL <201 [facility] Comment on above: Cholesterol level, D esirable <200 mg/dLBorderline high cholesterol 200-239 mg/dLHigh cholesterol >=240 mg/dLRecommendations of the NCEP Adult Treatment Panel for the following risk-cutoff thresholds for the [place] population. Serum or plasma urea nitroge n measurement (mass/volume)Ordered By: Guilherme Erickson on 11-08-2024 Urea nitrogen [Mass/Vol] 32 mg/dL High 4-19 [facility] Sodium levelOrdered By: Guilherme Erickson on 11-08-2024 Sodium [Moles/Vol] 137 mmol/L 133-145 [facility] TSH DL <= 0.005 mIU/L QnOrde red By: Guilherme Erickson on 11-08-2024 TSH Qn 2.960 uIU/mL 0.300-4.200 [facility] Thyroid Stim Hormone (TSH)on 11-08-2024 TSH 2.960 uIU/mL Normal 0.300-4.200 [facility] Comment on above: Order Comment: Order Date: 10/22/24Order Info: [id number] - CMPOrder Info: [id number] - LIPIDOrder Info: [id number] - TSHOrder Info: [id number] - PSA Performed By: #### M 100.4001, M100.3000, M100.1999 #### [facility] [address] [place], [address] Total proteinOrdered By: Sheila Erickson on 11-08-2024 Protein [Mass/Vol] 8.4 g/dL 5.9-8.4 [facility] Triglycerides measurementOrd ered By: Guilherme Erickson on 11-08-2024 Triglyceride [Mass/Vol] 93 mg/dL <199 [facility] Comment on above: The drugs N-Acetylcy steine and Metamizole may falsely depress this assay. Normal range: <150 mg/dLBorderline High: 150-199 mg/dLHigh: 200-499 mg/dLVery High: >500 mg/dL White blood cell (WBC) count Ordered By: Guilherme Erickson on 11-08-2024 WBC (Bld) [#/Vol] 7.4 10*3/uL 4.4-11.0 [facility] Comprehensive Metabolic Prof ilon 05-21-2024 Albumin [Mass/Vol] 4.1 g/dL Normal 3.2-5.0 [facility] Comment on above: Order Comment: Order Date: 11/15/23Order Info: [id number] - CMP Performed By: #### M 100.4001, M100.3000, M1 #### [facility] [address] [place], [address] Albumin/Globulin [Mass ratio] 0.9 {ratio} Normal 0.9-2.4 [facility] Comment on above: Order Comment: Order Date: 11/15/23Order Info: [id number] - CMP Performed By: #### M 100.4001, M100.3000, M100.1999 #### [facility] [address] [place], [address] ALK P 56 U/L Normal 45-117 [facility] Comment on above: Order Comment: Order Date: 11/15/23Order Info: [id number] - CMP Performed By: #### M 100.4001, M100.3000, M100 #### [facility] [address] [place], [address] ALT [Catalytic activity/Vol] 28 U/L Normal 16-61 [facility] Comment on above: Order Comment: Order Date: 11/15/23Order Info: [id number] - CMP Performed By: #### M 100.4001, M100.3000, M100.2000 #### [facility] [address] [place], [address] AST [Catalytic activity/Vol] 22 U/L Normal 15-37 [facility] Comment on above: Order Comment: Order Date: 11/15/23Order Info: [id number] - CMP Performed By: #### M 100.4001, M100.3000, #### [facility] [address] [place], [address] Bilirubin [Mass/Vol] 0.70 mg/dL Normal 0.20-1.00 [facility] Comment on above: Order Comment: Order Date: 11/15/23Order Info: [id number] - CMP Result Comment: For patients on eltrombopag therapy, use of Dimension [place] TBIL is not recommended. Performed By: #### M 100.4001, M100.3000, #### [facility] [address] [place], [address] BUN/CRE 22.0 RATIO High 10-20 [facility] Comment on above: Order Comment: Order Date: 11/15/23Order Info: [id number] - CMP Performed By: #### M 100.4001, M100.3000, #### [facility] [address] [place], [address] CA,Total 9.5 mg/dL Normal 8.5-10.1 [facility] Comment on above: Order Comment: Order Date: 11/15/23Order Info: [id number] - CMP Performed By: #### M 100.4001, M100.3000, #### [facility] [address] [place], [address] Chloride [Moles/Vol] 103 mmol/L Normal 98-107 [facility] Comment on above: Order Comment: Order Date: 11/15/23Order Info: [id number] - CMP Performed By: #### M 100.4001, M100.3000, #### [facility] [address] [place], [address] CO2 [Moles/Vol] 29.0 mmol/L Normal 21.0-32.0 [facility] Comment on above: Order Comment: Order Date: 11/15/23Order Info: [id number] - CMP Performed By: #### M 100.4001, M100.3000, #### [facility] [address] [place], [address] Creatinine [Mass/Vol] 1.32 mg/dL High 0.70-1.30 [facility] Comment on above: Order Comment: Order Date: 11/15/23Order Info: [id number] - CMP Result Comment: The validity of the calculated GFR GFRAA in patients over 70 years has not been determined. Clinical correlation is essential. Performed By: #### M 100.4001, M100.2999, #### [facility] [address] [place], [address] EST GFR - AA 68 mL/min Normal >60 [facility] Comment on above: Order Comment: Order Date: 11/15/23Order Info: 0786-1 - CMP Result Comment: Afri can [place] GFR Calc Performed By: #### M 100.4001, M100.2999, #### [facility] [address] [place], [address] GAP 4 Low 5-15 [facility] Comment on above: Order Comment: Order Date: 11/15/23Order Info: [id number] - CMP Performed By: #### M 100.4001, M100.3000, #### [facility] [address] [place], [address] GFR/1.73 sq M.predicted among non-blacks MDRD (S/P/Bld) [Vol rate/Area] 56 mL/min/{1.73_m2} Low >60 [facility] Comment on above: Order Comment: Order Date: 11/15/23Order Info: 0786-1 - CMP Result Comment: Non- GFR Calc Performed By: #### M 100.4001, M100.3000, #### [facility] [address] [place], [address] Globulin (S) [Mass/Vol] 4.6 g/dL High 2.2-4.2 [facility] Comment on above: Order Comment: Order Date: 11/15/23Order Info: [id number] - CMP Performed By: #### M 100.4001, M100.3000, #### [facility] [address] [place], [address] Glucose [Mass/Vol] 107 mg/dL High 74-106 [facility] Comment on above: Order Comment: Order Date: 11/15/23Order Info: [id number] - CMP Result Comment: Fast ing Glucose result from 100 to 125 mg/dL suggests IMPAIRED HOMEOSTASIS per A.D.A. criteria. Performed By: #### M 100.4001, M100.3000, #### [facility] [address] [place], [address] Potassium [Moles/Vol] 4.2 mmol/L Normal 3.5-5.1 [facility] Comment on above: Order Comment: Order Date: 11/15/23Order Info: [id number] - CMP Performed By: #### M 100.4001, M100.3000, #### [facility] [address] [place], [address] Sodium [Moles/Vol] 136 mmol/L Normal 136-145 [facility] Comment on above: Order Comment: Order Date: 11/15/23Order Info: [id number] - CMP Performed By: #### M 100.4001, M100.3000, #### [facility] [address] [place], [address] T PROT 8.7 g/dL High 6.4-8.2 [facility] Comment on above: Order Comment: Order Date: 11/15/23Order Info: [id number] - CMP Performed By: #### M 100.4001, M100.3000, M1.1999 #### [facility] [address] [place], [address] Urea nitrogen [Mass/Vol] 29 mg/dL High 7-18 [facility] Comment on above: Order Comment: Order Date: 11/15/23Order Info: [id number] - CMP Performed By: #### M 100.4001, M100.3000, #### [facility] [address] [place], [address] Hemoglobin A1con 05-21-2024 HbA1c (Bld) [Mass fraction] 6.0 % High 3.8-5.6 [facility] Comment on above: Order Comment: Order Date: 11/15/23Order Info: [id number] - A1C Result Comment: Norm al < 5.7 % Prediabetic 5.7 - 6.4 % Diabetic >or= 6.5 % Please note range changes. Performed By: #### M 100.4001, M100.3000, #### [facility] [address] [place], [address] Microalb:Creat Ratio,Random URon 05-21-2024 Creatinine [Mass/Vol] 24.30 mg/dL Normal NO RAN GE EST. [facility] Comment on above: Order Comment: Order Date: 11/15/23Order Info: [id number] - MIACRE Performed By: #### M 100.4001, M100.3000, #### [facility] [address] [place], [address] MALB:CRE 41.2 mg/g CRE High <30 mg/g CRE [facility] Comment on above: Order Comment: Order Date: 11/15/23Order Info: [id number] - MIACRE Performed By: #### M 100.4001, M100.3000, .1999 #### [facility] [address] [place], [address] MICROALBUMIN,UR 10.0 mg/L Normal NO RANGE EST. [facility] Comment on above: Order Comment: Order Date: 11/15/23Order Info: [id number] - MIACRE Performed By: #### M 100.4001, M100.3000, M1.1999 #### [facility] [address] [place], [address] Basophil percentageOrdered B y: Guilherme Erickson on 02-15-2023 Bilirubin [Mass/Vol] 0.50 mg/dL 0.20-1.00 [facility] Comment on above: For patients on eltr ombopag therapy, use of [place] TBIL is not recommended. Chloride [Moles/Vol] 104 mmol/L 98-107 [facility] Glucose [Mass/Vol] 101 mg/dL 74-106 [facility] Comment on above: Fasting Glucose resu lt from 100 to 125 mg/dL suggests IMPAIRED HOMEOSTASIS per A.D.A. criteria. Potassium [Moles/Vol] 3.9 mmol/L 3.5-5.1 [facility] Protein [Mass/Vol] 8.9 g/dL 6.4-8.2 [facility] Sodium [Moles/Vol] 138 mmol/L 136-145 [facility] - Chemistry and C hemistry - challengeOrdered By: Guilherme Erickson on 02-15-2023 ALP [Catalytic activity/Vol] 60 U/L 45-117 [facility] ALT [Catalytic activity/Vol] 33 U/L 16-61 [facility] CO2 [Moles/Vol] 29.0 mmol/L 21.0-32.0 [facility] Globulin (S) [Mass/Vol] 4.8 g/dL 2.2-4.2 [facility] Urea nitrogen/Creatinine [Mass ratio] 23.1 mg/mg 10-20 [facility] No Panel InformationOrdered By: Guilherme Erickson on 02-15-2023 Estimated GFR (MDRD) Amer 70 mL/min >60 [facility] Comment on above: GFR Calc Estimated GFR (MDRD) Non-Af Amer 58 mL/min >60 [facility] Comment on above: Non- GFR Calc Prostate Specific Antigen Total 2.03 ng/mL 0.0-4.0 [facility] Comment on above: This test was perfor med using the TPSA assay method for the[employer] chemistry system. Values obtained with differentassay methods cannot be used interchangably.When changing PSA assays in the course of monitoring apatient, additional sequential testing should be carriedout to confirm baseline values. Serum or plasma albumin jessica urement (mass/volume)Ordered By: Guilherme Erickson on 02-15-2023 Albumin [Mass/Vol] 4.1 g/dL 3.2-5.0 [facility] Serum or plasma albumin/glob ulin mass ratioOrdered By: Guilherme Erickson on 02-15-2023 Albumin/Globulin [Mass ratio] 0.9 {ratio} 0.9-2.4 [facility] Serum or plasma calcium jessica urement (mass/volume)Ordered By: Guilherme Erickson on 02-15-2023 Calcium [Mass/Vol] 9.3 mg/dL 8.5-10.1 [facility] Serum or plasma creatinine m easurement (mass/volume)Ordered By: Guilherme Erickson on 02-15-2023 Creatinine [Mass/Vol] 1.30 mg/dL 0.70-1.30 [facility] Comment on above: The validity of the calculated GFR & GFRAA in patients over 70 years has not been determined. Clinical correlation is essential. Serum or plasma urea nitroge n measurement (mass/volume)Ordered By: Guilherme Erickson on 02-15-2023 Urea nitrogen [Mass/Vol] 30 mg/dL 7-18 [facility] Thin prep Papanicolaou smear with manual screeningOrdered By: Guilherme Erickson on 02-15-2023 Thin prep Papanicolaou smear with manual screening 24 U/L 15-37 [facility] Thin prep Papanicolaou smear with manual screening 5 5-15 [facility] Whole blood hemoglobin A1c/t otal hemoglobin ratio (mass fraction)Ordered By: Guilherme Erickson on 02-15-2023 HbA1c (Bld) [Mass fraction] 6.1 % 3.8-5.6 [facility] Comment on above: Normal < 5.7 % Predi abetic 5.7 - 6.4 % Diabetic >or= 6.5 % Please note range changes. Basophil percentageOrdered B y: Dr. Erickson on 10-12-2022 Bilirubin [Mass/Vol] 0.60 mg/dL 0.20-1.00 [facility] Comment on above: For patients on eltr ombopag therapy, use of [place] TBIL is not recommended. Chloride [Moles/Vol] 102 mmol/L 98-107 [facility] Glucose [Mass/Vol] 101 mg/dL 74-106 [facility] Comment on above: Fasting Glucose resu lt from 100 to 125 mg/dL suggests IMPAIRED HOMEOSTASIS per A.D.A. criteria. Potassium [Moles/Vol] 3.7 mmol/L 3.5-5.1 [facility] Protein [Mass/Vol] 8.2 g/dL 6.4-8.2 [facility] Sodium [Moles/Vol] 134 mmol/L 136-145 [facility] WBC (Bld) [#/Vol] 5.8 10*3/uL 4.4-11.0 [facility] Blood erythrocytes count (nu mber/volume)Ordered By: Dr. Erickson on 10-12-2022 RBC (Bld) [#/Vol] 4.29 10*6/uL 4.6-6.2 [facility] Blood hemoglobin measurement (mass/volume)Ordered By: Dr. Erickson on 10-12-2022 Hemoglobin (Bld) [Mass/Vol] 13.7 g/dL 13.0-16.5 [facility] Blood platelet mean volumeOr dered By: Dr. Erickson on 10-12-2022 Platelet mean volume (Bld) [Entitic vol] 11.1 fL 6.2-12.0 [facility] Determination of erythrocyte mean corpuscular volume (MCV)Ordered By: Dr. Erickson on 10-12-2022 MCV (RBC) [Entitic vol] 97.0 fL 80-94 [facility] Hematocrit Auto (Bld) [Volum e fraction]Ordered By: Dr. Erickson on 10-12-2022 Hematocrit (Bld) [Volume fraction] 41.6 % 40-54 [facility] - Chemistry and C hemistry - challengeOrdered By: Dr. Erickson on 10-12-2022 ALP [Catalytic activity/Vol] 60 U/L 45-117 [facility] ALT [Catalytic activity/Vol] 25 U/L 16-61 [facility] CO2 [Moles/Vol] 27.0 mmol/L 21.0-32.0 [facility] Globulin (S) [Mass/Vol] 4.3 g/dL 2.2-4.2 [facility] Urea nitrogen/Creatinine [Mass ratio] 20.8 mg/mg 10-20 [facility] - Hematology and Cell countsOrdered By: Dr. Erickson on 10-12-2022 Erythrocyte distribution width (RBC) [Entitic vol] 51.6 fL 35.1-43.9 [facility] Erythrocyte distribution width (RBC) [Ratio] 14.5 % 11.6-14.6 [facility] MCH (RBC) [Entitic mass] 31.9 pg 27.0-32.0 [facility] MCHC Auto (RBC) [Mass/Vol]Or dered By: Dr. Erickson on 10-12-2022 MCHC (RBC) [Mass/Vol] 32.9 g/dL 32-36 [facility] No Panel InformationOrdered By: Dr. Erickson on 10-12-2022 Estimated GFR (MDRD) Amer 70 mL/min >60 [facility] Comment on above: GFR Calc Estimated GFR (MDRD) Non-Af Amer 58 mL/min >60 [facility] Comment on above: Non- GFR Calc Prostate Specific Antigen Total 1.54 ng/mL 0.0-4.0 [facility] Comment on above: This test was perfor med using the TPSA assay method for the[facility]. Values obtained with differentassay methods cannot be used interchangably.When changing PSA assays in the course of monitoring apatient, additional sequential testing should be carriedout to confirm baseline values. Thyroid Stimulating Hormone (TSH) 2.31 uIU/mL 0.358-3.74 [facility] Urine Microalbumin/Creatinin e Ratio 9.9 mg/g CRE <30 [facility] Platelets bldOrdered By: Dr. Erickson on 10-12-2022 Platelets (Bld) [#/Vol] 210 10*3/uL 150-450 [facility] Serum or plasma albumin jessica urement (mass/volume)Ordered By: Dr. Erickson on 10-12-2022 Albumin [Mass/Vol] 3.9 g/dL 3.2-5.0 [facility] Serum or plasma albumin/glob ulin mass ratioOrdered By: Dr. Erickson on 10-12-2022 Albumin/Globulin [Mass ratio] 0.9 {ratio} 0.9-2.4 [facility] Serum or plasma calcium jessica urement (mass/volume)Ordered By: Dr. Erickson on 10-12-2022 Calcium [Mass/Vol] 8.8 mg/dL 8.5-10.1 [facility] Serum or plasma creatinine m easurement (mass/volume)Ordered By: Dr. Erickson on 10-12-2022 Creatinine [Mass/Vol] 1.30 mg/dL 0.70-1.30 [facility] Comment on above: The validity of the calculated GFR & GFRAA in patients over 70 years has not been determined. Clinical correlation is essential. Serum or plasma urea nitroge n measurement (mass/volume)Ordered By: Dr. Erickson on 10-12-2022 Urea nitrogen [Mass/Vol] 27 mg/dL 7-18 [facility] Thin prep Papanicolaou smear with manual screeningOrdered By: Dr. Erickson on 10-12-2022 Thin prep Papanicolaou smear with manual screening 24 U/L 15-37 [facility] Thin prep Papanicolaou smear with manual screening 5 5-15 [facility] Thin prep Papanicolaou smear with manual screening 11.8 mg/L NO RANGE EST. [facility] Urine creatinine measurement (mass/volume)Ordered By: Dr. Erickson on 10-12-2022 Creatinine (U) [Mass/Vol] 119.00 mg/dL NO RANGE EST. [facility] Whole blood hemoglobin A1c/t otal hemoglobin ratio (mass fraction)Ordered By: Dr. Erickson on 10-12-2022 HbA1c (Bld) [Mass fraction] 6.1 % 3.8-5.6 [facility] Comment on above: Normal < 5.7 % Predi abetic 5.7 - 6.4 % Diabetic >or= 6.5 % Please note range changes. No Panel Informationon 04-15 Prostate Specific Antigen Screen 1.43 ng/mL 0.00-4.00 [facility] Work Phone: Comment on above: This test was perfor med using the TPSA assay method for [employer] chemistry system. Values obtained with differentassay methods cannot be used interchangably.When changing PSA assays in the course of monitoring apatient, additional sequential testing should be carriedout to confirm baseline values. Absolute lymphocyte counton 02-04-2022 Lymphocytes Auto (Unsp spec) [#/Vol] 1.32 10*3/uL 0.83-4.51 [facility] Work Phone: Basophil percentageon 2021 Basophils/100 WBC (Bld) 0.3 % 0-1 [facility] Work Phone: Bilirubin [Mass/Vol] 0.60 mg/dL 0.20-1.00 [facility] Work Phone: Comment on above: For patients on eltr ombopag therapy, use of [place] [place] TBIL is not recommended. Chloride [Moles/Vol] 103 mmol/L 98-107 [facility] Work Phone: Eosinophils/100 WBC (Bld) 2.0 % 0-5 [facility] Work Phone: Glucose [Mass/Vol] 97 mg/dL 74-106 [facility] Work Phone: Neutrophils (Bld) [#/Vol] 4.2 10*3/uL 2.0-7.7 [facility] Work Phone: Neutrophils/100 WBC (Bld) 63.1 % 47-70 [facility] Work Phone: Potassium [Moles/Vol] 4.1 mmol/L 3.5-5.1 [facility] Work Phone: Protein [Mass/Vol] 8.8 g/dL 6.4-8.2 [facility] Work Phone: [phone] Sodium [Moles/Vol] 139 mmol/L 136-145 [facility] Work Phone: WBC (Bld) [#/Vol] 6.6 10*3/uL 4.4-11.0 [facility] Work Phone: Blood erythrocytes count (nu mber/volume)on 02-04-2022 RBC (Bld) [#/Vol] 4.14 10*6/uL 4.6-6.2 [facility] Work Phone: Blood hemoglobin measurement (mass/volume)on 02-04-2022 Hemoglobin (Bld) [Mass/Vol] 13.1 g/dL 13.0-16.5 [facility] Work Phone: [phone] Blood lymphocytes/100 leukoc yteson 02-04-2022 Lymphocytes/100 WBC (Bld) 19.9 % 19-41 [facility] Work Phone: Blood monocytes/100 leukocyt eson 02-04-2022 Monocytes/100 WBC (Bld) 14.2 % 0-10 [facility] Work Phone: Blood platelet mean volumeon 02-04-2022 Platelet mean volume (Bld) [Entitic vol] 11.3 fL 6.2-12.0 [facility] Work Phone: Determination of erythrocyte mean corpuscular volume (MCV)on 02-04-2022 MCV (RBC) [Entitic vol] 98.8 fL 80-94 [facility] Work Phone: Erythrocyte sedimentation ra cecilia 02-04-2022 ESR (Bld) [Velocity] 38 mm/h 0-20 [facility] Work Phone: Hematocrit Auto (Bld) [Volum e fraction]on 02-04-2022 Hematocrit (Bld) [Volume fraction] 40.9 % 40-54 [facility] Work Phone: Laboratory - Chemistry and C hemistry - challengeon 02-04-2022 ALP [Catalytic activity/Vol] 59 U/L 45-117 [facility] Work Phone: ALT [Catalytic activity/Vol] 35 U/L 16-61 [facility] Work Phone: CO2 [Moles/Vol] 28.0 mmol/L 21.0-32.0 [facility] Work Phone: Globulin (S) [Mass/Vol] 4.7 g/dL 2.2-4.2 [facility] Work Phone: Urea nitrogen/Creatinine [Mass ratio] 22.5 mg/mg 10-20 [facility] Work Phone: Laboratory - Hematology and Cell countson 02-04-2022 Erythrocyte distribution width (RBC) [Entitic vol] 53.0 fL 35.1-43.9 [facility] Work Phone: Erythrocyte distribution width (RBC) [Ratio] 14.6 % 11.6-14.6 [facility] Work Phone: Immature granulocytes/100 WBC (Bld) 0.500 % 0.0-0.9 [facility] Work Phone: Comment on above: IG% - Immature Granu locytes (promyelocytes, myelocytes and metamyelocytes) > 1% indicates that a LEFT SHIFT is Present. MCH (RBC) [Entitic mass] 31.6 pg 27.0-32.0 [facility] Work Phone: Nucleated RBC/100 WBC (Bld) [Ratio] 0 % 0-5 [facility] Work Phone: MCHC Auto (RBC) [Mass/Vol]on 02-04-2022 MCHC (RBC) [Mass/Vol] 32.0 g/dL 32-36 [facility] Work Phone: No Panel Informationon 02-04 Estimated GFR (MDRD) Amer 70 mL/min >60 [facility] Work Phone: Comment on above: GFR Calc Estimated GFR (MDRD) Non-Af Amer 58 mL/min >60 [facility] Work Phone: Comment on above: Non- GFR Calc Platelets bldon 02-04-2022 Platelets (Bld) [#/Vol] 211 10*3/uL 150-450 [facility] Work Phone: Serum or plasma C reactive p rotein measurement (mass/volume)on 02-04-2022 CRP [Mass/Vol] 3.68 mg/L 0.0-3.0 [facility] Work Phone: Comment on above: C-Reactive Protein ( CRP) provides useful information for thediagnosis, therapy and monitoring of inflammatory processesand associated diseases. For the evaluation of Relative Riskfor Cardiovascular Disease, a High Sensitivity CRP (HSCRP)should be ordered. Serum or plasma albumin jessica urement (mass/volume)on 02-04-2022 Albumin [Mass/Vol] 4.1 g/dL 3.2-5.0 [facility] Work Phone: Serum or plasma albumin/glob ulin mass ratioon 02-04-2022 Albumin/Globulin [Mass ratio] 0.9 {ratio} 0.9-2.4 [facility] Work Phone: Serum or plasma calcium jessica urement (mass/volume)on 02-04-2022 Calcium [Mass/Vol] 9.3 mg/dL 8.5-10.1 [facility] Work Phone: Serum or plasma creatinine m easurement (mass/volume)on 02-04-2022 Creatinine [Mass/Vol] 1.29 mg/dL 0.70-1.30 [facility] Work Phone: Comment on above: The validity of the calculated GFR & GFRAA in patients over 70 years has not been determined. Clinical correlation is essential. Serum or plasma urea nitroge n measurement (mass/volume)on 02-04-2022 Urea nitrogen [Mass/Vol] 29 mg/dL 7-18 [facility] Work Phone: Thin prep Papanicolaou smear with manual screeningon 02-04-2022 Thin prep Papanicolaou smear with manual screening 26 U/L 15-37 [facility] Work Phone: Thin prep Papanicolaou smear with manual screening 8 5-15 [facility] Work Phone: Absolute lymphocyte counton 10-26-2021 Lymphocytes Auto (Unsp spec) [#/Vol] 1.57 10*3/uL 0.83-4.51 [facility] Work Phone: Basophil percentageon 2021 Basophils/100 WBC (Bld) 0.3 % 0-1 [facility] Work Phone: Bilirubin [Mass/Vol] 0.50 mg/dL 0.20-1.00 [facility] Work Phone: Comment on above: For patients on eltr ombopag therapy, use of [employer] [place] TBIL is not recommended. Chloride [Moles/Vol] 101 mmol/L 98-107 [facility] Work Phone: Eosinophils/100 WBC (Bld) 2.0 % 0-5 [facility] Work Phone: [phone] Glucose [Mass/Vol] 122 mg/dL 74-106 [facility] Work Phone: Comment on above: Fasting Glucose resu lt from 100 to 125 mg/dL suggests IMPAIRED HOMEOSTASIS per A.D.A. criteria. Neutrophils (Bld) [#/Vol] 5.4 10*3/uL 2.0-7.7 [facility] Work Phone: Neutrophils/100 WBC (Bld) 69.1 % 47-70 [facility] Work Phone: Potassium [Moles/Vol] 3.4 mmol/L 3.5-5.1 [facility] Work Phone: Protein [Mass/Vol] 8.7 g/dL 6.4-8.2 [facility] Work Phone: [phone] Sodium [Moles/Vol] 138 mmol/L 136-145 [facility] Work Phone: WBC (Bld) [#/Vol] 7.9 10*3/uL 4.4-11.0 [facility] Work Phone: Blood erythrocytes count (nu mber/volume)on 10-26-2021 RBC (Bld) [#/Vol] 4.29 10*6/uL 4.6-6.2 [facility]: [phone] Blood hemoglobin measurement (mass/volume)on 10-26-2021 Hemoglobin (Bld) [Mass/Vol] 13.6 g/dL 13.0-16.5 [facility] Work Phone: Blood lymphocytes/100 leukoc yteson 10-26-2021 Lymphocytes/100 WBC (Bld) 20.0 % 19-41 [facility] Work Phone: Blood monocytes/100 leukocyt eson 10-26-2021 Monocytes/100 WBC (Bld) 8.3 % 0-10 [facility] Work Phone: Blood platelet mean volumeon 10-26-2021 Platelet mean volume (Bld) [Entitic vol] 11.4 fL 6.2-12.0 [facility] Work Phone: Determination of erythrocyte mean corpuscular volume (MCV)on 10-26-2021 MCV (RBC) [Entitic vol] 96.0 fL 80-94 [facility] Work Phone: Erythrocyte sedimentation ra cecilia 10-26-2021 ESR (Bld) [Velocity] 38 mm/h 0-20 [facility] Work Phone: Hematocrit Auto (Bld) [Volum e fraction]on 10-26-2021 Hematocrit (Bld) [Volume fraction] 41.2 % 40-54 [facility] Work Phone: Laboratory - Chemistry and C hemistry - challengeon 10-26-2021 ALP [Catalytic activity/Vol] 57 U/L 45-117 [facility] Work Phone: ALT [Catalytic activity/Vol] 32 U/L 16-61 [facility] Work Phone: CO2 [Moles/Vol] 28.0 mmol/L 21.0-32.0 [facility] Work Phone: Globulin (S) [Mass/Vol] 4.8 g/dL 2.2-4.2 [facility] Work Phone: Urea nitrogen/Creatinine [Mass ratio] 21.5 mg/mg 10-20 [facility] Work Phone: Laboratory - Hematology and Cell countson 10-26-2021 Erythrocyte distribution width (RBC) [Entitic vol] 50.4 fL 35.1-43.9 [facility] Work Phone: Erythrocyte distribution width (RBC) [Ratio] 14.3 % 11.6-14.6 [facility] Work Phone: Immature granulocytes/100 WBC (Bld) 0.300 % 0.0-0.9 [facility] Work Phone: Comment on above: IG% - Immature Granu locytes (promyelocytes, myelocytes and metamyelocytes) > 1% indicates that a LEFT SHIFT is Present. MCH (RBC) [Entitic mass] 31.7 pg 27.0-32.0 [facility] Work Phone: Nucleated RBC/100 WBC (Bld) [Ratio] 0 % 0-5 [facility] Work Phone: MCHC Auto (RBC) [Mass/Vol]on 10-26-2021 MCHC (RBC) [Mass/Vol] 33.0 g/dL 32-36 [facility] Work Phone: No Panel Informationon 10-26 Estimated GFR (MDRD) Amer 70 mL/min >60 [facility] Work Phone: Comment on above: GFR Calc Estimated GFR (MDRD) Non-Af Amer 58 mL/min >60 [facility] Work Phone: Comment on above: Non- GFR Calc Hepatitis B Surface Antigen Non-Reactive Nonreactive [facility] Work Phone: Hepatitis C Antibody Non-Reactive Nonreactive [facility] Work Phone: Comment on above: Non Reactive: < 0.8 Equivocal: >/= 0.8 to < 1.0 Reactive: >/= 1.0The [facility] recommends that a reactive/equivocal HCV antibody result be followed up by the HCV Nucleic Acid Amplificationtest (100488) Platelets bldon 10-26-2021 Platelets (Bld) [#/Vol] 217 10*3/uL 150-450 [facility] Work Phone: Serum cyclic citrullinated p eptide IgG antibody assay (units/volume)on 10-26-2021 Cyclic citrullinated peptide IgG Qn 7 units 0-19 [facility] Work Phone: Comment on above: Negative <20 Weak po sitive 20 - 39 Moderate positive 40 - 59 Strong positive >59Performed at: [facility] [address] [id number] Director: Mario Richardson MD, Phone: [phone] Serum hepatitis B virus surf dyana antibody IgG detectionon 10-26-2021 HBV surface IgG Ql (S) Reactive [facility] Work Phone: Comment on above: Non Reactive: Incons istent with immunity less than <10 mIU/mL Reactive: Consistent with immunity greater than or equal to 10 mIU/mL Serum or plasma C reactive p rotein measurement (mass/volume)on 10-26-2021 CRP [Mass/Vol] 3.66 mg/L 0.0-3.0 [facility] Work Phone: Comment on above: C-Reactive Protein ( CRP) provides useful information for thediagnosis, therapy and monitoring of inflammatory processesand associated diseases. For the evaluation of Relative Riskfor Cardiovascular Disease, a High Sensitivity CRP (HSCRP)should be ordered. Serum or plasma albumin jessica urement (mass/volume)on 10-26-2021 Albumin [Mass/Vol] 3.9 g/dL 3.2-5.0 [facility] Work Phone: Serum or plasma albumin/glob ulin mass ratioon 10-26-2021 Albumin/Globulin [Mass ratio] 0.8 {ratio} 0.9-2.4 [facility] Work Phone: Serum or plasma calcium jessica urement (mass/volume)on 10-26-2021 Calcium [Mass/Vol] 8.8 mg/dL 8.5-10.1 [facility] Work Phone: Serum or plasma creatinine m easurement (mass/volume)on 10-26-2021 Creatinine [Mass/Vol] 1.30 mg/dL 0.70-1.30 [facility] Work Phone: Comment on above: The validity of the calculated GFR & GFRAA in patients over 70 years has not been determined. Clinical correlation is essential. Serum or plasma urea nitroge n measurement (mass/volume)on 10-26-2021 Urea nitrogen [Mass/Vol] 28 mg/dL 7-18 [facility] Work Phone: Thin prep Papanicolaou smear with manual screeningon 10-26-2021 Thin prep Papanicolaou smear with manual screening 27 U/L 15-37 [facility] Work Phone: Thin prep Papanicolaou smear with manual screening 9 5-15 [facility] Work Phone: Absolute lymphocyte counton 10-01-2021 Lymphocytes Auto (Unsp spec) [#/Vol] 1.33 10*3/uL 0.83-4.51 [facility] Work Phone: Basophil percentageon 2021 [facility]: Basophils/100 WBC (Bld) 0.1 % 0-1 [facility] Work Phone: Bilirubin [Mass/Vol] 0.60 mg/dL 0.20-1.00 [facility] Work Phone: Comment on above: For patients on eltr ombopag therapy, use of Dimension [place] TBIL is not recommended. Chloride [Moles/Vol] 102 mmol/L 98-107 [facility] Work Phone: Eosinophils/100 WBC (Bld) 2.5 % 0-5 [facility] Work Phone: Glucose [Mass/Vol] 93 mg/dL 74-106 [facility] Work Phone: Neutrophils (Bld) [#/Vol] 4.2 10*3/uL 2.0-7.7 [facility] Work Phone: Neutrophils/100 WBC (Bld) 62.5 % 47-70 [facility] Work Phone: Potassium [Moles/Vol] 3.8 mmol/L 3.5-5.1 [facility] Work Phone: Protein [Mass/Vol] 8.7 g/dL 6.4-8.2 [facility] Work Phone: Sodium [Moles/Vol] 135 mmol/L 136-145 [facility] Work Phone: WBC (Bld) [#/Vol] 6.8 10*3/uL 4.4-11.0 [facility] Work Phone: Blood erythrocytes count (nu mber/volume)on 10-01-2021 RBC (Bld) [#/Vol] 4.24 10*6/uL 4.6-6.2 [facility] Work Phone: Blood hemoglobin measurement (mass/volume)on 10-01-2021 Hemoglobin (Bld) [Mass/Vol] 13.2 g/dL 13.0-16.5 [facility] Work Phone: [phone] Blood lymphocytes/100 leukoc yteson 10-01-2021 Lymphocytes/100 WBC (Bld) 19.7 % 19-41 [facility] Work Phone: Blood monocytes/100 leukocyt eson 10-01-2021 Monocytes/100 WBC (Bld) 14.9 % 0-10 [facility] Work Phone: Blood platelet mean volumeon 10-01-2021 Platelet mean volume (Bld) [Entitic vol] 11.2 fL 6.2-12.0 [facility] Work Phone: Determination of erythrocyte mean corpuscular volume (MCV)on 10-01-2021 MCV (RBC) [Entitic vol] 96.2 fL 80-94 [facility] Work Phone: Hematocrit Auto (Bld) [Volum e fraction]on 10-01-2021 Hematocrit (Bld) [Volume fraction] 40.8 % 40-54 [facility] Work Phone: Laboratory - Chemistry and C hemistry - challengeon 10-01-2021 ALP [Catalytic activity/Vol] 54 U/L 45-117 [facility] Work Phone: ALT [Catalytic activity/Vol] 40 U/L 16-61 [facility] Work Phone: CO2 [Moles/Vol] 28.0 mmol/L 21.0-32.0 [facility] Work Phone: Globulin (S) [Mass/Vol] 4.7 g/dL 2.2-4.2 [facility] Work Phone: Urea nitrogen/Creatinine [Mass ratio] 26.2 mg/mg 10-20 [facility] Work Phone: Laboratory - Hematology and Cell countson 10-01-2021 Erythrocyte distribution width (RBC) [Entitic vol] 50.1 fL 35.1-43.9 [facility] Work Phone: Erythrocyte distribution width (RBC) [Ratio] 14.3 % 11.6-14.6 [facility] Work Phone: Immature granulocytes/100 WBC (Bld) 0.300 % 0.0-0.9 [facility] Work Phone: Comment on above: IG% - Immature Granu locytes (promyelocytes, myelocytes and metamyelocytes) > 1% indicates that a LEFT SHIFT is Present. MCH (RBC) [Entitic mass] 31.1 pg 27.0-32.0 [facility] Work Phone: Nucleated RBC/100 WBC (Bld) [Ratio] 0 % 0-5 [facility] Work Phone: MCHC Auto (RBC) [Mass/Vol]on 10-01-2021 MCHC (RBC) [Mass/Vol] 32.4 g/dL 32-36 [facility] Work Phone: No Panel Informationon 10-01 Centromere B Antibody <0.[address] [facility] Work Phone: Estimated GFR (MDRD) Amer 70 mL/min >60 [facility] Work Phone: Comment on above: GFR Calc Estimated GFR (MDRD) Non-Af Amer 58 mL/min >60 [facility] Work Phone: Comment on above: Non- GFR Calc UNLOADING CHECKER Antibody 0.3 [facility] Work Phone: Platelets bldon 10-01-2021 Platelets (Bld) [#/Vol] 219 10*3/uL 150-450 [facility] Work Phone: Serum DNA double strand anti body assay (units/volume)on 10-01-2021 DNA double strand Ab Qn (S) 6 [IU]/mL [facility] Work Phone: Comment on above: Negative <5 Equivoca l 5 - 9 Positive >9 Serum Carina-1 antibody assay (u nits/volume)on 10-01-2021 Carina-1 extractable nuclear Ab Qn (S) <0.2 [facility] Work Phone: Serum Scl-70 extractable nuc lear antibody assay (units/volume)on 10-01-2021 SCL-70 extractable nuclear Ab Qn (S) <0.2 [facility] Work Phone: Serum Erickson extractable nucl ear antibody detectionon 10-01-2021 Erickson extractable nuclear Ab Ql (S) 0.4 [facility] Work Phone: Serum or plasma albumin jessica urement (mass/volume)on 10-01-2021 Albumin [Mass/Vol] 4.0 g/dL 3.2-5.0 [facility] Work Phone: Serum or plasma albumin/glob ulin mass ratioon 10-01-2021 Albumin/Globulin [Mass ratio] 0.9 {ratio} 0.9-2.4 [facility] Work Phone: Serum or plasma calcium jessica urement (mass/volume)on 10-01-2021 Calcium [Mass/Vol] 8.9 mg/dL 8.5-10.1 [facility] Work Phone: Serum or plasma creatinine m easurement (mass/volume)on 10-01-2021 Creatinine [Mass/Vol] 1.30 mg/dL 0.70-1.30 [facility] Work Phone: Comment on above: The validity of the calculated GFR & GFRAA in patients over 70 years has not been determined. Clinical correlation is essential. Serum or plasma urea nitroge n measurement (mass/volume)on 10-01-2021 Urea nitrogen [Mass/Vol] 34 mg/dL 7-18 [facility] Work Phone: Serum rheumatoid factor dete ctionon 10-01-2021 Rheumatoid factor Ql (S) 114.0 IU/mL <15 [facility] Work Phone: Thin prep Papanicolaou smear with manual screeningon 10-01-2021 Thin prep Papanicolaou smear with manual screening 28 U/L 15-37 [facility] Work Phone: Thin prep Papanicolaou smear with manual screening 5 5-15 [facility] Work Phone: Basophil percentageon 2021 Creatinine [Mass/Vol] 1.1 mg/dL 0.70-1.30 [facility] Work Phone: No Panel Informationon 09-24 Bedside Estimated GFR (eGFR) > 60.0000 mL/min >60 [facility] Work Phone: Basophil percentageon 2021 Basophil [facility] > 8.0 [facility] Work [facility]: No Panel Informationon 08-24 Centromere B Antibody <0.[address] [facility] Work Phone: UNLOADING CHECKER Antibody 0.4 [facility] Work Phone: Serum DNA double strand anti body assay (units/volume)on 08-24-2021 DNA double strand Ab Qn (S) 5 [IU]/mL [facility] Work Phone: Comment on above: Negative <5 Equivoca l 5 - 9 Positive >9 Serum Carina-1 antibody assay (u nits/volume)on 08-24-2021 Carina-1 extractable nuclear Ab Qn (S) <0.2 [facility] Work Phone: Serum Scl-70 extractable nuc lear antibody assay (units/volume)on 08-24-2021 SCL-70 extractable nuclear Ab Qn (S) <0.2 [facility] Work Phone: Serum Erickson extractable nucl ear antibody detectionon 08-24-2021 Erickson extractable nuclear Ab Ql (S) 0.4 [facility] Work Phone: 24 hour urine alpha 2 globul in/total protein ratio by electrophoresis (mass fraction)on 08-11-2021 Alpha 2 globulin Elph (24H U) [Mass fraction] 11.9 % [facility] Work Phone: 24 hour urine beta globulin/ total protein ratio by electrophoresis (mass fraction)on 08-11-2021 Beta globulin Elph (24H U) [Mass fraction] 20.2 % [facility] Work Phone: 24 hour urine gamma globulin /total protein ratio by electrophoresis (mass fraction)on 08-11-2021 Gamma globulin Elph (24H U) [Mass fraction] 28.5 % [facility] Work Phone: Absolute lymphocyte counton 08-11-2021 Lymphocytes Auto (Unsp spec) [#/Vol] 1.30 10*3/uL 0.83-4.51 [facility] Work Phone: Alternaria alternata IgE ser umon 08-11-2021 A. alternata IgE Qn (S) <0.10 kU/L Class 0 [facility] Work Phone: Basophil percentageon 2021 Basophils/100 WBC (Bld) 0.3 % 0-1 [facility] Work Phone: [phone] Bilirubin [Mass/Vol] 0.50 mg/dL 0.20-1.00 [facility] Work Phone: Comment on above: For patients on eltr ombopag therapy, use of Dimension [place] TBIL is not recommended. Chloride [Moles/Vol] 102 mmol/L 98-107 [facility] Work Phone: Eosinophils/100 WBC (Bld) 2.0 % 0-5 [facility] Work Phone: Glucose [Mass/Vol] 102 mg/dL 74-106 [facility] Work Phone: Comment on above: Fasting Glucose resu lt from 100 to 125 mg/dL suggests IMPAIRED HOMEOSTASIS per A.D.A. criteria. Neutrophils (Bld) [#/Vol] 4.8 10*3/uL 2.0-7.7 [facility] Work Phone: Neutrophils/100 WBC (Bld) 68.2 % 47-70 [facility] Work Phone: Potassium [Moles/Vol] 3.7 mmol/L 3.5-5.1 [facility] Work Phone: Protein [Mass/Vol] 8.9 g/dL 6.4-8.2 [facility] Work Phone: [phone] Sodium [Moles/Vol] 136 mmol/L 136-145 [facility] Work Phone: [phone] WBC (Bld) [#/Vol] 7.0 10*3/uL 4.4-11.0 [facility] Work Phone: Blood erythrocytes count (nu mber/volume)on 08-11-2021 RBC (Bld) [#/Vol] 4.30 10*6/uL 4.6-6.2 [facility] Work Phone: Blood hemoglobin measurement (mass/volume)on 08-11-2021 Hemoglobin (Bld) [Mass/Vol] 13.6 g/dL 13.0-16.5 [facility] Work Phone: Blood lymphocytes/100 leukoc yteson 08-11-2021 Lymphocytes/100 WBC (Bld) 18.7 % 19-41 [facility] Work Phone: Blood monocytes/100 leukocyt eson 08-11-2021 Monocytes/100 WBC (Bld) 10.5 % 0-10 [facility] Work Phone: Blood platelet mean volumeon 08-11-2021 Platelet mean volume (Bld) [Entitic vol] 11.0 fL 6.2-12.0 [facility] Work Phone: Determination of erythrocyte mean corpuscular volume (MCV)on 08-11-2021 MCV (RBC) [Entitic vol] 95.6 fL 80-94 [facility] Work Phone: Hematocrit Auto (Bld) [Volum e fraction]on 08-11-2021 Hematocrit (Bld) [Volume fraction] 41.1 % 40-54 [facility] Work Phone: Laboratory - Chemistry and C hemistry - challengeon 08-11-2021 ALP [Catalytic activity/Vol] 55 U/L 45-117 [facility] Work Phone: ALT [Catalytic activity/Vol] 35 U/L 16-61 [facility] Work Phone: CO2 [Moles/Vol] 27.0 mmol/L 21.0-32.0 [facility] Work Phone: Globulin (S) [Mass/Vol] 4.8 g/dL 2.2-4.2 [facility] Work Phone: Urea nitrogen/Creatinine [Mass ratio] 26.7 mg/mg 10-20 [facility] Work Phone: Laboratory - Hematology and Cell countson 08-11-2021 Erythrocyte distribution width (RBC) [Entitic vol] 47.3 fL 35.1-43.9 [facility] Work Phone: Erythrocyte distribution width (RBC) [Ratio] 13.3 % 11.6-14.6 [facility] Work Phone: Immature granulocytes/100 WBC (Bld) 0.300 % 0.0-0.9 [facility] Work Phone: Comment on above: IG% - Immature Granu locytes (promyelocytes, myelocytes and metamyelocytes) > 1% indicates that a LEFT SHIFT is Present. MCH (RBC) [Entitic mass] 31.6 pg 27.0-32.0 [facility] Work Phone: Nucleated RBC/100 WBC (Bld) [Ratio] 0 % 0-5 [facility] Work Phone: MCHC Auto (RBC) [Mass/Vol]on 08-11-2021 MCHC (RBC) [Mass/Vol] 33.1 g/dL 32-36 [facility] Work Phone: No Panel Informationon 08-11 Addendum Document Comment [facility] Work Phone: Comment on above: The SPE pattern refl ects a polyclonal increase in gammaglobulin. Hypergammaglobulinemia is found in a wide varietyof infectious, non-infectious, and autoimmune diseasestates. Evidence of monoclonal protein is not apparent. [id number] 0.2 g/dL [facility] Work Phone: Muemt-8-Bbrckdrdh 1.0 g/dL [facility] Work Phone: Anti-Nuclear Antibody Screen Positive Negative [facility] Work Phone: Cat Hair Allergen <0.10 kU/L Class 0 [facility] Work Phone: Common Ragweed (Short) Allergen <0.10 kU/L Class 0 [facility] Work Phone: Comment on above: RAST ZONE 5 PER ORDE R Estimated GFR (MDRD) Amer 69 mL/min >60 [facility] Work Phone: Comment on above: GFR Calc Estimated GFR (MDRD) Non-Af Amer 57 mL/min >60 [facility] Work Phone: Comment on above: Non- GFR Calc Gamma Globulins 2.2 g/dL [facility] Work Phone: Immunoglobulin E 58 IU/mL [facility] Work Phone: Maple (Scott) Allergen IgE Ab TNP [facility] Work Phone: Comment on above: Test not performedTe st not performed. Insufficient specimen to perform orcomplete analysis. Mouse Urine Allergen IgE Antibody <0.10 kU/L Class 0 [facility] Work Phone: RAST Comment Comment [facility] Work Phone: Comment on above: Levels of Specific I gE Class Description of Class ----- < 0.10 0 Negative 0.10 - 0.31 0/I Equivocal/Low 0.32 - 0.55 I Low 0.56 - 1.40 II Moderate 1.41 - 3.90 III High 3.91 - 19.00 IV Very High 19.01 - 100.00 V Very High >100.00 Very High [place] Tree Allergen TNP [facility] Work Phone: Comment on above: Test not performedTe st not performed. Insufficient specimen to perform orcomplete analysis. Platelets bldon 08-11-2021 Platelets (Bld) [#/Vol] 245 10*3/uL 150-450 [facility] Work Phone: Protein Fractions Elph [Inte rp]on 08-11-2021 Protein Fractions [Interp] Comment [facility] Work Phone: Comment on above: Protein electrophore sis scan will follow via computer,mail, or petrographer delivery. Rough pigweed specific IgE a ntibody assayon 08-11-2021 Rough Pigweed IgE Qn (S) [facility] Work Phone: Comment on above: Test not performedTe st not performed. Insufficient specimen to perform orcomplete analysis. Serum Cape Verdean sycamore IgE antibody assay (units/volume)on 08-11-2021 [place]an [place] IgE Qn (S) [facility] Work Phone: Comment on above: Test not performedTe st not performed. Insufficient specimen to perform orcomplete analysis. Serum Aspergillus fumigatus IgE antibody assay (units/volume)on 08-11-2021 A. fumigatus IgE Qn (S) <0.10 kU/L Class 0 [facility] Work Phone: Serum Bermuda grass IgE anti body assay (units/volume)on 08-11-2021 Bermuda grass IgE Qn (S) <0.10 kU/L Class 0 [facility] Work Phone: Serum Cladosporium herbarum IgE antibody assay (units/volume)on 08-11-2021 C. herbarum IgE Qn (S) <0.10 kU/L Class [address] [facility] Work Phone: Serum Dermatophagoides farin ae specific IgE antibody assay (units/volume)on 08-11-2021 [place]an house dust mite IgE Qn (S) <0.10 kU/L Class 0 [facility] Work Phone: Comment on above: RAST ZONE 5 PER ORDE R Serum house dust mi te IgE antibody assay (units/volume)on 08-11-2021 house dust mite IgE Qn (S) <0.10 kU/L Class 0 [facility] Work Phone: Serum Penicillium notatum Ig E antibody assay (units/volume)on 08-11-2021 P. notatum IgE Qn (S) [facility] Work Phone: Comment on above: Test not performedTe st not performed. Insufficient specimen to perform orcomplete analysis. Serum Periplaneta americana IgE antibody assay (units/volume)on 08-11-2021 [place] Cockroach IgE Qn (S) <0.10 kU/L Class 0 [facility] Work Phone: Comment on above: RAST ZONE 5 PER ORDE R Serum New Zealander thistle specif ic IgE antibody assayon 08-11-2021 Saltwort IgE Qn (S) [facility] Work Phone: Comment on above: Test not performedTe st not performed. Insufficient specimen to perform orcomplete analysis. Serum albumin to globulin ra shawn by protein electrophoresison 08-11-2021 Albumin/Globulin Elph [Mass ratio] 0.9 [facility] Work Phone: Serum birch specific IgE ant ibody assayon 08-11-2021 Silver Birch IgE Qn (S) [facility] Work Phone: Comment on above: Test not performedTe st not performed. Insufficient specimen to perform orcomplete analysis. Serum black walnut IgE antib fatemeh assay (units/volume)on 08-11-2021 Black [place] IgE Qn (S) [facility] Work Phone: Comment on above: Test not performedTe st not performed. Insufficient specimen to perform orcomplete analysis. Serum cottonwood IgE antibod y assay (units/volume)on 08-11-2021 [place] IgE Qn (S) [facility] Work Phone: Comment on above: Test not performedTe st not performed. Insufficient specimen to perform orcomplete analysis. Serum dog epithelium IgE ant ibody assay (units/volume)on 08-11-2021 Dog epithelium IgE Qn (S) <0.10 kU/L Class 0 [facility] Work Phone: Comment on above: RAST ZONE 5 PER ORDE R Serum globulin measurement ( mass/volume)on 08-11-2021 Globulin (S) [Mass/Vol] 4.6 g/dL [facility] Work Phone: Serum mountain cedar specifi c IgE antibody assayon 08-11-2021 Mountain Juniper IgE Qn (S) [facility] Work Phone: Comment on above: Test not performedTe st not performed. Insufficient specimen to perform orcomplete analysis. Serum or plasma C reactive p rotein measurement (mass/volume)on 08-11-2021 CRP [Mass/Vol] 5.61 mg/L 0.0-3.0 [facility] Work Phone: Comment on above: C-Reactive Protein ( CRP) provides useful information for thediagnosis, therapy and monitoring of inflammatory processesand associated diseases. For the evaluation of Relative Riskfor Cardiovascular Disease, a High Sensitivity CRP (HSCRP)should be ordered. Serum or plasma albumin jessica urement (mass/volume)on 08-11-2021 Albumin [Mass/Vol] 4.1 g/dL [facility] Work Phone: Serum or plasma albumin/glob ulin mass ratioon 08-11-2021 Albumin/Globulin [Mass ratio] 0.9 {ratio} 0.9-2.4 [facility] Work Phone: Serum or plasma beta globuli n measurement by electrophoresis (mass/volume)on 08-11-2021 Beta globulin Elph [Mass/Vol] 1.2 g/dL [facility] Work Phone: Serum or plasma calcium jessica urement (mass/volume)on 08-11-2021 Calcium [Mass/Vol] 8.6 mg/dL 8.5-10.1 [facility] Work Phone: Serum or plasma creatinine m easurement (mass/volume)on 08-11-2021 Creatinine [Mass/Vol] 1.31 mg/dL 0.70-1.30 [facility] Work Phone: Comment on above: The validity of the calculated GFR & GFRAA in patients over 70 years has not been determined. Clinical correlation is essential. Serum or plasma urea nitroge n measurement (mass/volume)on 08-11-2021 Urea nitrogen [Mass/Vol] 35 mg/dL 7-18 [facility] Work Phone: Serum pecan or hickory nut I gE antibody assay (units/volume)on 08-11-2021 Pecan or Gaston Nut IgE Qn (S) TNP [facility] Work Phone: Comment on above: Test not performedTe st not performed. Insufficient specimen to perform orcomplete analysis. Serum rheumatoid factor dete ctionon 08-11-2021 Rheumatoid factor Ql (S) 138.0 IU/mL <15 [facility] Work Phone: Serum sheep sorrel IgE antib fatemeh assay (units/volume)on 08-11-2021 Sheep Floral IgE Qn (S) [facility] Work Phone: Comment on above: Test not performedTe st not performed. Insufficient specimen to perform orcomplete analysis. Serum jonh IgE antibody a ssay (units/volume)on 08-11-2021 Jonh IgE Qn (S) <0.10 kU/L Class 0 [facility] Work Phone: Serum white ladarius IgE antibody assay (units/volume)on 08-11-2021 White Ladarius IgE Qn (S) [facility] Work Phone: Comment on above: Test not performedTe st not performed. Insufficient specimen to perform orcomplete analysis. Serum white elm IgE antibody assay (units/volume)on 08-11-2021 White Elm IgE Qn (S) [facility] Work Phone: Comment on above: Test not performedTe st not performed. Insufficient specimen to perform orcomplete analysis. Serum white mulberry IgE ant ibody assay (units/volume)on 08-11-2021 White mulberry IgE Qn (S) [facility] Work Phone: Comment on above: Test not performedTe st not performed. Insufficient specimen to perform orcomplete analysis. Thin prep Papanicolaou smear with manual screeningon 08-11-2021 Thin prep Papanicolaou smear with manual screening 25 U/L 15-37 [facility] Work Phone: Thin prep Papanicolaou smear with manual screening 7 5-15 [facility] Work Phone: Thin prep Papanicolaou smear with manual screening See comment [facility] Work Phone: Comment on above: NOT OBSERVED Total protein bloodon 2021 Protein [Mass/Vol] 8.7 g/dL [facility] Work Phone: Urine albumin/total protein mass ratio by electrophoresison 08-11-2021 Albumin Elph (U) [Mass fraction] 37.5 % [facility] Work Phone: Urine alpha 1 globulin/total protein ratio by electrophoresis (mass fraction)on 08-11-2021 Alpha 1 globulin Elph (U) [Mass fraction] 1.9 % [facility] Work Phone: Urine monoclonal protein/tot al protein mass ratio by electrophoresison 08-11-2021 Protein.monoclonal Elph (U) [Mass fraction] See comment [facility] Work Phone: Comment on above: NOT OBSERVED Urine protein measurement (m ass/volume)on 08-11-2021 Protein (U) [Mass/Vol] 5.7 mg/dL Not Estab. Wo [facility] Work Phone: Basophil percentageon 2021 Bilirubin [Mass/Vol] 0.60 mg/dL 0.20-1.00 [facility] Work Phone: Comment on above: For patients on eltr ombopag therapy, use of Dimension [place] TBIL is not recommended. Chloride [Moles/Vol] 105 mmol/L 98-107 [facility] Work Phone: Glucose [Mass/Vol] 94 mg/dL 74-106 [facility] Work Phone: Potassium [Moles/Vol] 3.8 mmol/L 3.5-5.1 [facility] Work Phone: Protein [Mass/Vol] 9.0 g/dL 6.4-8.2 [facility] Work Phone: Sodium [Moles/Vol] 137 mmol/L 136-145 [facility] Work Phone: Laboratory - Chemistry and C hemistry - challengeon 05-25-2021 ALP [Catalytic activity/Vol] 57 U/L 45-117 [facility] Work Phone: ALT [Catalytic activity/Vol] 35 U/L 16-61 [facility] Work Phone: CO2 [Moles/Vol] 24.0 mmol/L 21.0-32.0 [facility] Work Phone: Free T4 [Mass/Vol] 0.85 ng/dL 0.76-1.46 [facility] Work Phone: Globulin (S) [Mass/Vol] 5.0 g/dL 2.2-4.2 [facility] Work Phone: Urea nitrogen/Creatinine [Mass ratio] 23.1 mg/mg 10-20 [facility] Work Phone: No Panel Informationon 05-25 Estimated GFR (MDRD) Amer 70 mL/min >60 [facility] Work Phone: Comment on above: GFR Calc Estimated GFR (MDRD) Non-Af Amer 58 mL/min >60 [facility] Work Phone: Comment on above: Non- GFR Calc Thyroid Stimulating Hormone (TSH) 3.64 uIU/mL 0.358-3.74 [facility] Work Phone: Serum or plasma albumin jessica urement (mass/volume)on 05-25-2021 Albumin [Mass/Vol] 4.0 g/dL 3.2-5.0 [facility] [facility] Work Phone: Serum or plasma albumin/glob ulin mass ratioon 05-25-2021 Albumin/Globulin [Mass ratio] 0.8 {ratio} 0.9-2.4 [facility] Work Phone: Serum or plasma calcium jessica urement (mass/volume)on 05-25-2021 Calcium [Mass/Vol] 9.1 mg/dL 8.5-10.1 [facility] Work Phone: Serum or plasma creatinine m easurement (mass/volume)on 05-25-2021 Creatinine [Mass/Vol] 1.30 mg/dL 0.70-1.30 [facility] Work Phone: Comment on above: The validity of the calculated GFR & GFRAA in patients over 70 years has not been determined. Clinical correlation is essential. Serum or plasma urea nitroge n measurement (mass/volume)on 05-25-2021 Urea nitrogen [Mass/Vol] 30 mg/dL 7-18 [facility] Work Phone: Thin prep Papanicolaou smear with manual screeningon 05-25-2021 Thin prep Papanicolaou smear with manual screening 27 U/L 15-37 [facility] Work Phone: Thin prep Papanicolaou smear with manual screening 8 5-15 [facility] Work Phone: Provider Note - ED v2on Provider Note - ED v2 Provider Note [...] SIGNS: T PRBP SpO2O2(LPM) %FiO2 Method 01-Feb-2020 14:49:[id number] 98 MEDICAL DECISION MAKING/ED COURSE MDM/ED COURSE: [...] better. Patient denies the use of any urje-lii-kzzcfld medications or home remedies prior to arrival [...] normal strength, no tenderness, no swelling. Integumentary: [place], warm, dry, and Intact. Neurologic: Alert, Oriented, [...] ill patient: no Electronic Signatures: Ketan Holliday (SAFETY PATROL OFFICER-MEDICAL AIDES TEACHER) (Signed 01-Feb-2020 15:02) Authored: HPI, PMH, PE, Results/Vital Signs, MDM/ED Course, Clinical Impression, Attestation, Chart Review, Scores Last Updated: 01-Feb-2020 15:02 by Ketan Holliday (SAFETY PATROL OFFICER-MEDICAL AIDES TEACHER) [facility] XR Chest 2 Viewson 8 XR Chest 2 Views Exam Date/Time:2017 08:44 EDTReason for Exam:Shortness of breath (SOB)ReportSTUDY:XR Chest 2 Views; 03/04/2018 8:44 amINDICATION:Shortness of breath (SOB).COMPARISON:None.AC CESSION NUMBER(S):[id number] 24ORDERING CLINICIAN:Marin JohnsonFINDINGS:CARDI OMEDIASTINAL SILHOUETTE:Cardiomediast inal silhouette is normal in size and configuration.LUNGS:Lung s are clear.No pleural effusion or pneumothorax.ABDOMEN:No remarkable upper abdominal findings.BONES:There is osteopenia with mild multilevel anterior endplate spurring of the spine.IMPRESSION:1. No evidence of acute cardiopulmonary process. FINAL REPORT Dictated: 03/04/2018 9:07 am Cyndi Vance MDigned (Electronic Signature): 03/04/2018 9:07 amSigned by: Tarun Vance MD Technologist: [facility] Office Visit: positive colog amy 03-30-2017 Documentation of current medications (procedure) Done Invalid Interpretation Code [facility] [employer] Work Phone: Fall risk assessment No Invalid Interpretation Code [facility] [employer] Work Phone: Tobacco smoking status NHIS Never Invalid Interpretation Code [facility] Work Phone: Tobacco use [facility] Never smoker Invalid Interpretation Code [facility] [employer] Work Phone: Vital Signs Date Time Vital Sign Value Performing Clinician Facility 02-11-2025 08:50-0400 Body height 162.[address] Guilherme Erickson MD Work Phone: [facility] 02-11-2025 08:50-0400 Body mass index (BMI) [Ratio] 33.5 kg/m2 Dr. Guilherme Erickson MD Work Phone: [facility] 02-11-2025 08:50-0400 Body temperature 97.9 [degF] Dr. Guilherme Erickson MD Work Phone: [facility] 02-11-2025 08:50-0400 Body weight 88.[address] Guilherme Erickson MD Work Phone: 6(863)970-880217 [place] [address] 02-11-2025 08:50-0400 Diastolic blood pressure 77 mm[Hg] Dr. Guilherme Erickson MD Work Phone: 7(434)169-987779 [place] [address] 02-11-2025 08:50-0400 Heart rate 72 /min Dr. Guilherme Erickson MD Work Phone: 7(120)227-571079 [place] [address] 02-11-2025 08:50-0400 Respiratory rate 18 /min Dr. Guilherme Erickson MD Work Phone: 0(382)712-867279 [place] [address] 02-11-2025 08:50-0400 SaO2% (BldA) [Mass fraction] 97 % Dr. Guilherme Erickson MD Work Phone: 2(705)080-658279 [place] [address] 02-11-2025 08:50-0400 Systolic blood pressure 150 mm[Hg] Dr. Guilherme Erickson MD Work Phone: 6(209)420-042179 [place] [address] 11-30-2024 07:49-0400 Body temperature 97.9 [degF] Dr. Guilherme Erickson MD Work Phone: 6(752)914-066979 [place] [address] 11-30-2024 07:49-0400 Diastolic blood pressure 70 mm[Hg] Dr. Guilherme Erickson MD Work Phone: 0(849)962-648479 [place] [address] 11-30-2024 07:49-0400 Heart rate 71 /min Dr. Guilherme Erickson MD Work Phone: 0(061)227-333479 [place] [address] 11-30-2024 07:49-0400 Respiratory rate 18 /min Dr. Guilherme Erickson MD Work Phone: 3(826)879-366679 [place] [address] 11-30-2024 07:49-0400 SaO2% (BldA) [Mass fraction] 96 % Dr. Guilherme Erickson MD Work Phone: 9(879)232-330779 [place] [address] 11-30-2024 07:49-0400 Systolic blood pressure 137 mm[Hg] Dr. Guilherme Erickson MD Work Phone: 7(662)239-943379 [place] [address] 11-28-2024 16:17-0400 Inhaled oxygen flow rate 2 L/min Dr. Giulherme Erickson MD Work Phone: 5(752)826-240779 [place] [address] 11-28-2024 00:01-0400 Body height 162.[address] Guilherme Erickson MD Work Phone: 9(431)767-945179 [place] [address] 11-28-2024 00:01-0400 Body mass index (BMI) [Ratio] 33.4 kg/m2 Dr. Guilherme Erickson MD Work Phone: 3(854)879-768479 [place] [address] 11-28-2024 00:01-0400 Body weight 88.[address] Guilherme Erickson MD Work Phone: 0(148)888-460179 [place] [address] 11-27-2024 20:00-0400 Body temperature 99 [degF] Dr. Guilherme Erickson MD Work Phone: 5(025)975-493679 [place] [address] 11-27-2024 20:00-0400 Diastolic blood pressure 71 mm[Hg] Dr. Guilherme Erickson MD Work Phone: 9(388)569-641979 [place] [address] 11-27-2024 20:00-0400 Heart rate 82 /min Dr. Guilherme Erickson MD Work Phone: 3(030)792-876479 [place] [address] 11-27-2024 20:00-0400 Respiratory rate 20 /min Dr. Guilherme Erickson MD Work Phone: 7(394)174-953779 [place] [address] 11-27-2024 20:00-0400 SaO2% (BldA) [Mass fraction] 95 % Dr. Guilherme Erickson MD Work Phone: 8(465)034-304779 [place] [address] 11-27-2024 20:00-0400 Systolic blood pressure 131 mm[Hg] Dr. Guilherme Erickson MD Work Phone: 2(031)363-481479 [place] [address] 11-27-2024 18:58-0400 Body height 162.[address] Guilherme Erickson MD Work Phone: 6(057)505-668979 [place] [address] 11-27-2024 18:58-0400 Body mass index (BMI) [Ratio] 33.5 kg/m2 Dr. Guilherme Erickson MD Work Phone: 2(780)847-821179 [place] [address] 11-27-2024 18:58-0400 Body weight 88.[address] Guilherme Erickson MD Work Phone: 7(732)703-154679 [place] [address] 11-11-2024 09:08-0400 Body height 162.[address] Guilherme Erickson MD Work Phone: [facility] 11-11-2024 09:08-0400 Body mass index (BMI) [Ratio] 34.2 kg/m2 Dr. Guilherme Erickson MD Work Phone: [facility] 11-11-2024 09:08-0400 Body temperature 98.1 [degF] Dr. Guilherme Erickson MD Work Phone: [facility] 11-11-2024 09:08-0400 Body weight 90.[address] Guilherme Erickson MD Work Phone: [facility] 11-11-2024 09:08-0400 Diastolic blood pressure 68 mm[Hg] Dr. Guilherme Erickson MD Work Phone: 3(977)493-397617 [place] [address] 11-11-2024 09:08-0400 Heart rate 84 /min Dr. Guilherme Erickson MD Work Phone: [facility] 11-11-2024 09:08-0400 Respiratory rate 15 /min Dr. Guilherme Erickson MD Work Phone: [facility] 11-11-2024 09:08-0400 SaO2% (BldA) [Mass fraction] 94 % Dr. Guilherme Erickson MD Work Phone: [facility] 11-11-2024 09:08-0400 Systolic blood pressure 142 mm[Hg] Dr. Guilherme Erickson MD Work Phone: [facility] 08-27-2021 12:32-0400 Body height 162.[address] Guilherme Erickson Work Phone: [facility] Work Phone: 08-27-2021 12:32-0400 Body mass index (BMI) [Ratio] 35.6 kg/m2 Dr. Guilherme Erickson Work Phone: [facility] Work Phone: 08-27-2021 12:32-0400 Body temperature 97.9 [degF] Dr. Guilherme Erickson Work Phone: [facility] Work Phone: 08-27-2021 12:32-0400 Body weight 94.[address] Guilherme Erickson Work Phone: [facility] Work Phone: 08-27-2021 12:32-0400 Diastolic blood pressure 76 mm[Hg] Dr. Guilherme Erickson Work Phone: [facility] Work Phone: 08-27-2021 12:32-0400 Heart rate 73 /min Dr. Guilherme Erickson Work Phone: [facility] Work Phone: 08-27-2021 12:32-0400 Respiratory rate 16 /min Dr. Guilherme Erickson Work Phone: [facility] Work Phone: 08-27-2021 12:32-0400 SaO2% (BldA) [Mass fraction] 93 % Dr. Guilherme Erickson Work Phone: [facility] Work Phone: 08-27-2021 12:32-0400 Systolic blood pressure 165 mm[Hg] Dr. Guilherme Erickson Work Phone: [facility] Work Phone: 03-30-2017 10:29-0500 BMI (Body Mass Index) 36.2 kg/m2 Louis Espinoza MD [facility] Work Phone: 03-30-2017 10:29-0500 Body Temperature 98 [degF] Louis Espinoza MD [facility] Work Phone: 03-30-2017 10:29-0500 BP Diastolic 80 mm[Hg] Louis Espinoza MD [facility] Work Phone: 03-30-2017 10:29-0500 BP Systolic 187 mm[Hg] Louis Espinoza MD [facility] Work Phone: 03-30-2017 10:29-0500 Height 162.56 cm Louis Espinoza MD [facility] Work Phone: 03-30-2017 10:29-0500 Pulse (Heart Rate) 64 /min Louis Espinoza MD [facility] Work Phone: 03-30-2017 10:29-0500 Respiratory Rate 20 /min Louis Espinoza MD [facility] Work Phone: 03-30-2017 10:29-0500 Weight 95.66 kg Louis Espinoza MD [facility] Work Phone: Encounters Encounter Date Encounter Type Care Provider Facility Start: 02-11-[address] Ketan Parry MD -Laboratory Specimen Work Phone: Start: 02-11-2025 End: 02-11-[address] Ketan Parry MD -[facility] Work Phone: Start: 02-11-2025 End: 02-11-[address] Guilherme Erickson MD Work Phone: -[facility] Start: 02-11-2025 End: 02-11-2025 ambulatory Guilherme Erickson Facility:[facility] Start: 12-10-2024 End: 12-10-2024 Patient encounter procedure Shawnee DIAZ -[facility] Work Phone: Start: 12-10-2024 End: 12-10-[address] Guilherme Erickson MD Work Phone: -[facility] Start: 11-30-2024 Non-patient / Non-visit Dr. Ketan Parry MD -[facility] Start: 11-29-2024 Non-patient / Non-visit Shawnee marquez PA-C -[facility] Start: 11-28-2024 ambulatory Guilherme Erickson Facility: [facility] Start: 11-28-2024 End: 11-30-2024 Evaluation and management of inpatient Dr. Ketan Parry MD -[facility] Work Phone: Start: 11-28-2024 Non-patient / Non-visit Shawnee marquez PA-C -[facility] Start: 11-27-2024 ambulatory Shawnee LINDSAY Faci lity:[facility] Start: 11-27-2024 Non-patient / Non-visit Dr. Ketan Parry MD -[facility] Start: 11-27-2024 Evaluation and management of inpatient Dr. Ketan Parry MD -[facility] Work Phone: Start: 11-27-2024 ambulatory Ketan Parry Facility: [facility] Start: 11-11-2024 End: 11-11-2024 Patient encounter procedure Tabatha Sanchez PA -[facility] Work Phone: Start: 11-11-2024 End: 11-11-[address] Guilherme Erickson MD Work Phone: -[facility] Start: 11-08-2024 End: 11-08-[address] Guilherme Erickson MD Work Phone: -Laboratory [facility] Start: 11-08-2024 End: 11-08-[address] Guilherme Erickson MD -Laboratory [facility] Start: 11-08-2024 End: 11-08-2024 ambulatory Guilherme Erickson Facility:[facility] Start: 05-21-2024 End: 05-21-2024 ambulatory Guilherme Erickson Facility:[facility] Start: 02-15-2023 End: 02-15-2023 ambulatory [facility] Work Phone: Start: 02-15-2023 End: 02-15-2023 Patient encounter procedure [facility] Start: 10-12-2022 End: 10-12-2022 ambulatory [facility] Work Phone: Start: 10-12-2022 End: 10-12-2022 Patient encounter procedure [facility] Start: 04-15-2022 End: 04-15-2022 ambulatory [facility] Work Phone: Start: 04-15-2022 End: 04-15-2022 Patient encounter procedure [facility] Start: 02-04-2022 End: 02-04-2022 ambulatory [facility] Work Phone: Start: 02-04-2022 End: 02-04-2022 Patient encounter procedure [facility] Start: 10-26-2021 End: 10-26-2021 Patient encounter procedure [facility] Start: 10-01-2021 End: 10-01-[address] Guilherme Erickson Work Phone: [facility] Start: 09-24-2021 End: 09-24-[address] Guilherme Erickson Work Phone: [facility] Start: 09-08-2021 End: 09-08-[address] Guilherme Erickson Work Phone: [facility] Start: 08-27-2021 End: 08-27-[address] Guilherme Erickson Work Phone: [facility]-Pulmonary Medicine [facility] Start: 08-25-2021 Non-patient / Non-visit Dr. Bimal Erickson Work Phone: [facility] Start: 08-25-2021 End: 08-25-[address] Guilherme Erickson Work Phone: [facility]-Pulmonary Services/Neurology Start: 08-24-2021 End: 08-24-[address] Guilherme Erickson Work Phone: [facility] Start: 08-20-2021 End: 08-20-2021 [facility] Start: 08-11-2021 End: 08-11-2021 Patient encounter procedure [facility] Start: 05-25-2021 End: 05-25-2021 Patient encounter procedure [facility] Start: 07-15-2020 End: 07-15-2020 Patient encounter procedure RAFAELA ERIC [facility] Start: 03-04-2018 End: 03-05-2018 Patient encounter procedure Marin Johnson Facility:[facility] Start: 03-04-2018 Patient encounter procedure Facility:[id number] Procedures Date Procedure Procedure Detail Performing Clinician Start: 02-11-2025 Methicillin resistant Staphylococcus aureus screening test Dr. Guilherme Erickson MD Work Phone: Start: 11-30-[address] Guilherme Erickson MD Work Phone: Start: 11-29-[address] Guilherme Erickson MD Work Phone: Start: 11-27-[address] Guilherme Erickson MD Work Phone: Start: 11-27-2024 Urnls dip stick/tablet reagent auto microscopy Dr. Guilherme Erickson MD Work Phone: Start: 11-27-2024 Computed tomography of abdomen and pelvis with intravenous contrast Dr. Guilherme Erickson MD Work Phone: Start: 11-27-[address] Guilherme Erickson MD Work Phone: Start: 11-27-[address] Guilherme fernandez MD Work Phone: Start: 11-27-[address] Guilherme Erickson MD Work Phone: Start: 11-27-[address] Guilherme Erickson MD Work Phone: Start: 11-27-2024 End: 11-27-2024 Microbial culture, routine Dr. Guilherme jimenez MD Work Phone: Start: 11-27-[address] Guilherme Erickson MD Work Phone: Start: [...] of abdomen with contrast Dr. Guilherme Guerra [facility] Work Phone: Start: 09-08-2021 MRI of abdomen with contrast Dr. Guilherme Guerra [facility] Work Phone: Start: 08-20-2021 CT of chest without contrast Start: 08-20-2021 CT of face Start: 03-30-2017 End: 03-30-2017 Colonoscopy flx dx w/collj spec when pfrmd Louis Espinoza MD Work Phone: Start: 03-30-2017 End: 03-30-2017 Esophagogastroduodenoscopy transoral diagnostic Louis Espinoza MD Work Phone: History of appendectomy S/P appendectomy Shawnee Hassan PA-C Plan of Treatment Date Care Activity Detail Author Start: 04-04-2025 ambulatory Ambulatory Facility:[facility] Start: 11-30-2024 Patient discharge [facility] Start: 11-28-2024 Oxygen therapy [facility] Start: 11-28-2024 Admission procedure [facility] Start: 11-28-2024 Application of intermittent pneumatic compression device [facility] Start: 11-28-2024 Following clinical pathway protocol [facility] Start: 11-27-2024 Elevation of head of bed [facility] Start: 11-27-2024 Measuring intake and output [facility] Start: 11-27-2024 Wound care [facility] Start: 11-27-2024 Admission procedure [facility] Start: 11-27-2024 Application of ice collar, cap or bag [facility] Start: 11-27-2024 Source specific culture [facility] Start: 11-27-2024 Laparoscopic appendectomy Laparoscopic, Appendectomy (Not Applicable) [facility] Start: 11-27-2024 Hospital admission, emergency, from emergency room, medical nature [facility] Start: 11-27-2024 End: 11-27-2024 [facility] Start: 11-27-2024 Anaerobic microbial culture Anaerobic Culture [facility] Start: 11-27-2024 Bacteria identified in Blood by Culture Blood Culture [facility] Start: 11-27-2024 Bacteria identified in Urine by Culture Urine Culture [facility] Start: 11-27-2024 Blood culture Blood Culture [facility] Start: 03-30-2017 End: 03-30-2017 Colonoscopy flx dx w/collj spec when pfrmd Colonoscopy [facility] Work Phone: Start: 03-30-2017 End: 03-30-2017 Esophagogastroduodenoscopy transoral diagnostic EGD; diagnostic [facility] Work Phone: Start: 03-30-2017 End: 03-30-[address] [facility] Work Phone: Anion gap in Serum or Plasma [facility] BUN/Creatinine ratio [facility] Calcium [Mass/volume ] in Serum or Plasma [facility] Carbon dioxide, tota l [Moles/volume] in Central venous blood [facility] Creatinine [Mass/vol ume] in Serum or Plasma [facility] Glucose [Mass/volume ] in Serum or Plasma [facility] Measurement of renal function [facility] Potassium measurement [facility] Serum chloride measurement [facility] Sodium measurement [facility] Urea nitrogen [Mass/ volume] in Serum or Plasma [facility] Urine culture [facility] Immunizations Immunization Date Immunization Notes Care Provider Fa cility 11-09-2022 tetanus toxoid, redu hiren diphtheria toxoid, and acellular pertussis vaccine, adsorbed Dr. Guilherme Erickson MD Work Phone: [facility] 07-15-2020 Covid ([employer]) Dr. Guilherme Erickson MD Work Phone: [facility] 05-08-2007 hepatitis B vaccine, adult dosage Dr. Guilherme Erickson MD Work Phone: [facility] 10-26-2006 hepatitis B vaccine, adult dosage Dr. Guilherme Erickson MD Work Phone: [facility] 09-16-2006 hepatitis B vaccine, adult dosage Dr. Guilherme Erickson MD Work Phone: [facility] Payers Date Payer Category Payer Self-pay [id number] 2024 Unknown [id number] 2018 Medicare 2018 Unknown 2014 Medicare [id number] 1950 Unknown [id number] 2.16.84 [id number] 1950 Unknown [id number] 2.16.84 [id number] 1950 Unknown [id number] 2.16. [id number] 1950 Unknown [id number] 2.16.84 [id number] [facility] [id number] Unknown [id number] Unknown [id number] 2.16.8 [id number] Unknown [id number] 2.16.8 [id number] Unknown [id number] 2.16.8 [id number] Unknown [id number] 2.16.8 40.1.001604.3.579.2.462 Unknown [id number] 2.16.8 40.1.557940.3.579.2.462 Unknown [id number] 2.16.8 40.1.924322.3.579.2.462 Unknown [id number] 2.16.8 40.1.110035.3.579.2.462 Unknown [id number] 2.16.8 [id number] Unknown [id number] 2.16.8 [id number] Unknown [id number] 2.16.8 [id number] Unknown [id number] 2.16.8 [id number] Unknown [id number] 2.16.8 [id number] Social History Date Type Detail Facility Tobacco smoking stat us MNIS Unknown if ever smoked [facility] Work Phone: Start: 1950 Sex Assigned At Male [facility] Start: 11-11-2024 End: 11-28-2024 Tobacco smoking status NHIS Never smoked tobacco (finding) [facility] Sex Male [facility] Medical Equipment Procedure Code Equipment Code Equipment Origin al Text Equipment Identifier Dates Appendectomy, laparoscopic Surgical staple loading unit, non-cutting [id number] FDA Start: 11-27-2024 Goals Date Patient Goal Desired Activity /State Functional Status Date Assessment Result Facility 11-30-2024 Functional status Ambulates;Up ad ping [facility] Work Phone: 11-29-2024 Functional status None [facility] Work Phone: Mental Status Date Assessment Result Facility 11-29-2024 Cognitive function Voice/Name [facility] Work Phone: Clinical Notes 11-11-2024 to 02-11-2025 Note Date & Type Note Facility 02-11-2025 Progress note [facility] 11-30-2024 Discharge summary [facility] 11-30-2024 Discharge summary [facility] 11-30-2024 Discharge summary Note Date/Time November 30, 2024 2:42pm [facility] Medical Records Department [address] [place] [address] Discharge Summary 11/30/24 0954 MR#: [id number] Acct: [id number] Name: DONELL HERRMANN Rep #:[id number] : 1950 74 From: Ketan Bruno PCP: Dr. Guilherme Erickson MD Status:ADM IN Location: [facility] [id number] Providers Date of Admission: 11/28/24 Primary Care Physician: Dr. Guilherme Erickson MD Reason For Visit: PERFORATED APPENDICITIS Diagnosis Discharge Diagnosis (1) Acute appendicitis: Status: Acute Code(s): K35.80 - Unspecified acute appendicitis Qualifiers: Acute appendicitis type: with generalized peritonitis Appendicitis abscess presence: with abscess Appendicitis gangrene presence: with gangrene Appendicitis perforation presence: with perforation Qualified Code(s): K35.211 -Acute appendicitis with generalized peritonitis, with perforation and abscess Plan: Patient is postoperative day 3 from laparoscopic appendectomy with partial cecectomy for intraoperative finding of perforated appendicitis. He is clinically improved with minimal abdominal discomfort. He reports ongoing GI function with more regular passage of flatus and additional bowel movement. He also is reporting improved appetite and resolution of some new heartburn that was experienced yesterday. Beyond this subjective assessment, patient's white blood cell count has returned to normal, he has been afebrile, and his drain output has become simply serous in character. With these improvements I will plan to de-escalate his treatment and prepare for discharge home potentially later today. ?Advance to regular diet ?Maintain dressing over ANTON site for 48 hours ?Transition to p.o. Augmentin from IV Zosyn Continue to encourage ambulation and I.S. Dispo: DC to home tentatively set up for this afternoon pending re-evaluation ofpatient's course after above changes. Please notify surgery of any significant developments. Medications at Discharge Home Medications losartan 100 mg tablet 100 mg PO DAILY 04/06/17 red yeast rice 600 mg capsule 600 mg PO DAILY 04/06/17 chlorthalidone 25 mg tablet 12.5 mg PO DAILY 08/27/21 cholecalciferol (vitamin D3) 50 mcg (2,000 unit) capsule 50 mcg PO DAILY 08/27/21 niacin 500 mg tablet 500 mg PO QODAY 08/27/21 levothyroxine 25 mcg tablet 25 mcg PO DAILY 11/27/24 omeprazole 20 mg tablet,delayed release 20 mg PO DAILY 11/28/24 amoxicillin 875 mg-potassium clavulanate 125 mg tablet 1 tab PO BID 1 day #2 tabs 11/30/24 Hospital Course Operations appendectomy (11/27/2024) Procedures None Summary of Care Provided Hospital Course: Patient is 74-year-old male who was admitted on 11/27/2024 via the ER after he presented with signs and symptoms of acute appendicitis. Given the diagnosis I recommended proceeding for emergent surgical appendectomy. Patient provided hisconsent and the operation was conducted the same evening. Intraoperatively I confirmed the presence of perforated appendicitis and patient was admitted postoperatively for ongoing IV antibiotic administration as well as monitoring for development of a postoperative ileus. With the latter concern, I was conservative with administration of the diet, but patient had a relatively uneventful course with just some abdominal distention that improved as he experienced return of bowel function and his diet was gradually advanced. He was maintained on IV antibiotics and we noted the normalization of his white blood cell count as well as his fever curve. Further, drain placed intraoperatively cleared for the character of its output. With these clinical improvements IV antibiotics were discontinued in favor of transition to oral antibiotics. He was also given a regular diet and his drain was discontinued onpostoperative day 3. He tolerated these final inpatient therapy changes well and was thus granted discharge to home later the same day. Outpatient follow-upexpectation was previously discussed along with ongoing care instructions. Physical Exam Const alert, oriented x3 and no apparent distress Resp normal respiratory effort GI GI Narrative: Minimally distended, soft, appropriately tender to palpation, Steri-Strips stillintact. Dressing over suprapubic drain site. Weight / BMI Weight Weight: 194 lb 11.2 oz Body Mass Index (BMI) 33.4 ABG / Lab / Microbiology Data 11/30/24 05:23 11/29/24 05:25 Laboratory: Laboratory Results - last 24 hr 11/30/24 05:23: WBC 10.0, RBC 3.93 L, Hgb 12.3 L, Hct 37.7 L, MCV 95.9 H, MCH 31.3, MCHC 32.6, RDW Std Deviation 52.4 H, RDW Coeff of [place]oma 14.7 H, Plt Count 241, MPV 11.5, Immature Gran % (Auto) 0.400, Neut % (Auto) 78.0 H, Lymph % (Auto) 11.7 L, [place] % (Auto) 7.2, Eos % (Auto) 2.5, Baso % (Auto) 0.2, Absolute Neuts (auto) 7.8 H, Absolute Lymphs (auto) 1.17, Nucleated RBC % 0 Microbiology: Microbiology 11/27/24 22:00 Aspirate - Abdominal Gram Stain - Final 11/27/24 22:00 Aspirate - Abdominal Wound Culture - Final Escherichia coli 11/27/24 22:00 Aspirate - Abdominal Anaerobic Culture - Preliminary 11/27/24 15:54 Blood Culture (Wb) - Left Hand Blood Culture - Preliminary No growth in 48 hours. 11/27/24 16:05 Urine, Clean Catch Urine Culture - Final Culture exhibits no growth. 11/27/24 15:40 Blood Culture (Wb) - Anticubital Left Blood Culture - Preliminary No growth in 48 hours. D/C Instructions May shower in (days): 1 Ice area for (Minutes): 20 Call your doctor if your incision/area has: Continuous Slow Oozing, Increased Pain/ Swelling, Increased Redness, Foul Smelling Discharge and Swelling at the incision site Call your doctor if you observe: Fever of 101 or Higher Cleanse incision/area with: Soap & Water DC O2, CPAP, BIPAP Needs Home O2 Discharge instructions: No Please Follow Up With: Ketan Parry MD When: 7-10days postop Meaningful Use Info Meaningful Use Meaningful Use Diagnoses (Choose all that apply): None applicable Discharge Plan Admission Admit Date/Time: 11/28/24 11:37 Primary Reason for Your Visit: Perforated appendicitis Attending Provider: Ketan Parry Primary Care Provider: Guilherme Erickson Discharge Orders/Prescriptions Prescriptions: New amoxicillin-pot clavulanate 875-125 mg Tablet 1 tab PO BID 1 Days Qty: 2 0RF Continued chlorthalidone 25 mg tablet 12.5 mg PO DAILY cholecalciferol (vitamin D3) 50 mcg (2,000 unit) capsule 50 mcg PO DAILY niacin 500 mg tablet 500 mg PO QODAY losartan 100 MG tablet 100 mg PO DAILY Patient Comments: BLOOD PRESSURE red yeast rice 600 MG capsule 600 mg PO DAILY levothyroxine 25 mcg tablet 25 mcg PO DAILY omeprazole 20 mg tablet,delayed release (DR/EC) 20 mg PO DAILY Referrals / Follow Up: Guilherme Erickson MD [Primary Care Provider] - Disposition Disposition (needs filled in before D/C Order can be placed): Home, Self Care Charges/Coding Visit Charges Inpatient E&M: 70909 Disch Hosp 11/30/24 8302 <Electronically signed by Ketan Parry MD> Cosigner Signature (if applicable): CC: Dr. Guilherme Erickson MD; Dr. Ketan Parry MD~ Signed [facility] Work Phone: 1(642) 558-508208-01-2025 Discharge summary Author Ketan Parry [facility] Note Date/Time November 30, 2024 2:4 1pm [facility] Medical Records Department [address] [place] [address] Instructions for Home/Discharge Instructions 11/30/24 0949 MR#: [id number] Acct: [id number] Name: DONELL HERRMANN Rep #:[id number] : 1950 74 From: Ketan Bruno PCP: Dr. Guilherme Erickson MD Status:ADM IN Discharge Instructions DC O2, CPAP, BIPAP needs Home O2 Discharge instructions: No Dressing / Incision Discharge Activity: May Drive and May Shower (May shower if drain site is protected from getting wet, otherwise recommend waiting 48 hours additionally and removing that dressing) May shower in (days): 2 Ice area for (Minutes): 20 Lifting Restrictions: No lifting greater than 15 pounds for 2 weeks after surgery Dressing / Incision Call your doctor if your incision/area has: Continuous Slow Oozing, Increased Pain/ Swelling, Increased Redness, Foul Smelling Discharge and Swelling at the incision site Call your doctor if you observe: Fever of 101 or Higher Remove Dressing in: 2 days (Please leave Steri-Strips intact until they fall offspontaneously or are taken off at your follow-up visit. DC drain site dressing 48 hours) Cleanse incision/area with: Soap & Water Follow Up Care Please Follow Up With: Ketan Parry MD When: 10-14 days postop Test Results: Test results from this visit will be discussed in further detail at your follow- up appointment, if applicable. Discharge Plan Admission Admit Date/Time: 11/28/24 11:37 Primary Reason for Your Visit: Perforated appendicitis Attending Provider: Ketan Parry Primary Care Provider: Guilherme Erickson Discharge Orders/Prescriptions Prescriptions: New amoxicillin-pot clavulanate 875-125 mg Tablet 1 tab PO BID 1 Days Qty: 2 0RF Continued chlorthalidone 25 mg tablet 12.5 mg PO DAILY cholecalciferol (vitamin D3) 50 mcg (2,000 unit) capsule 50 mcg PO DAILY niacin 500 mg tablet 500 mg PO QODAY losartan 100 MG tablet 100 mg PO DAILY Patient Comments: BLOOD PRESSURE red yeast rice 600 MG capsule 600 mg PO DAILY levothyroxine 25 mcg tablet 25 mcg PO DAILY omeprazole 20 mg tablet,delayed release (DR/EC) 20 mg PO DAILY Referrals / Follow Up: Guilherme Erickson MD [Primary Care Provider] - Disposition Disposition (needs filled in before D/C Order can be placed): Home, Self Care 11/30/24 1441<Electronically signed by Ketan Parry MD>Ketan Parry MD CC: Dr. Guilherme Erickson MD ~ Signed [facility] Work Phone: [phone]) 370-204308-01-2025 Progress [facility] Note Date/Time November 30, 2024 9:4 9am [facility] Medical Records Department [address] [place] [address] Progress Note - Surgery 11/30/24 0942 MR#: [id number] Acct: [id number] Name: DONELL HERRMANN Rep #:[id number] : 1950 74 From: Ketan Bruno PCP: Dr. Guilherme Erickson MD Status:ADM IN Location: [facility] [id number] Subjective Subjective Patient seen and examined during AM rounds. Is found sitting out of bed in the chair. He states that he was able to have a small bowel movement earlier this morning and ambulated 3 times yesterday afternoon. He reports that his pain hasbeen minimal and he has not even needed Tylenol for this discomfort. Lastly, heshares resolution of some heartburn/indigestion he had experienced yesterday andreports a stronger appetite today. Objective Data Objective Data Vital Signs: Vital Signs Temp Pulse Resp BP Pulse Ox O2 Del Method O2 Flow Rate 97.9 F 71 18 137/70 H 96 Room Air 2 11/30/24 07:49 11/30/24 07:49 11/30/24 07:49 11/30/24 07:49 11/30/24 07:49 11/30/24 07:55 11/28/24 16:17 Oxygen Flow Rate (L/min) 2 Oxygen Delivery Method Room Air Weight: 194 lb 11.2 oz Body Mass Index (BMI) 33.4 Intake & Output: Intake and Output for Last 24 Hours 11/28/24 11/29/24 11/30/24 23:59 23:59 23:59 Intake Total 3047.92 / 3047.92 2570 / 2570 1011.25 / 1011.25 Output Total 400 / 400 130 / 170 45 / 45 Balance 2647.92 / 2647.92 2440 / 2400 966.25 / 966.25 Lab / Micro Data 11/30/24 05:23 11/29/24 05:25 Labs: Laboratory Results - last 24 hr 11/30/24 05:23: WBC 10.0, RBC 3.93 L, Hgb 12.3 L, Hct 37.7 L, MCV 95.9 H, MCH 31.3, MCHC 32.6, RDW Std Deviation 52.4 H, RDW Coeff of [place]oma 14.7 H, Plt Count 241, MPV 11.5, Immature Gran % (Auto) 0.400, Neut % (Auto) 78.0 H, Lymph % (Auto) 11.7 L, [place] % (Auto) 7.2, Eos % (Auto) 2.5, Baso % (Auto) 0.2, Absolute Neuts (auto) 7.8 H, Absolute Lymphs (auto) 1.17, Nucleated RBC % 0 Micro: Microbiology 11/27/24 22:00 Aspirate - Abdominal Gram Stain - Final 11/27/24 22:00 Aspirate - Abdominal Wound Culture - Final Escherichia coli 11/27/24 22:00 Aspirate - Abdominal Anaerobic Culture - Preliminary 11/27/24 15:54 Blood Culture (Wb) - Left Hand Blood Culture - Preliminary No growth in 48 hours. 11/27/24 16:05 Urine, Clean Catch Urine Culture - Final Culture exhibits no growth. 11/27/24 15:40 Blood Culture (Wb) - Anticubital Left Blood Culture - Preliminary No growth in 48 hours. Physical Exam Const oriented x3 and no apparent distress Resp normal respiratory effort GI GI Narrative: Improved abdominal distention, mildly tympanic, soft, appropriately tender to palpation with just mild tenderness about port site incisions in right lower quadrant. Suprapubic drain with serous output. Assessment & Plan Assessment/Plan (1) Acute appendicitis: QUALIFIERS: Acute appendicitis type: with generalized peritonitis Appendicitis gangrene presence: with gangrene Appendicitis perforation presence: with perforation Appendicitis abscess presence: with abscess Qualified Code(s): K35.211 - Acute appendicitis with generalized peritonitis, with perforation and abscess PLAN: Patient is postoperative day 3 from laparoscopic appendectomy with partialcecectomy for intraoperative finding of perforated appendicitis. He is clinically improved with minimal abdominal discomfort. He reports ongoing GI function with more regular passage of flatus and additional bowel movement. He also is reporting improved appetite and resolution of some new heartburn that was experienced yesterday. Beyond this subjective assessment, patient's white blood cell count has returned to normal, he has been afebrile, and his drain output has become simply serous in character. With these improvements I will plan to de-escalate his treatment and prepare for discharge home potentially later today. ?Advance to regular diet ?Maintain dressing over ANTON site for 48 hours ?Transition to p.o. Augmentin from IV Zosyn Continue to encourage ambulation and I.S. Dispo: DC to home tentatively set up for this afternoon pending re-evaluation ofpatient's course after above changes. Please notify surgery of any significant developments. Charges/Coding Visit Charges Inpatient E&M: 37660 Subs Hosp L2 11/30/24 0949 <Electronically signed by Ketan Parry MD> Cosigner Signature (if applicable): CC: ~ Signed [facility] Work Phone: 1(662) 116-989808-01-2025 [facility] Medical Records Department [address] [place] [address] Discharge Summary 11/30/24 0954 MR#: [id number] Acct: [id number] Name: DONELL HERRMANN Rep #: [id number] : 1950 74 From: Ketan Parry MD PCP: Dr. Guilherme Erickson MD Status:ADM IN Location: [place] [address] Providers Date of Admission: 11/28/24 Primary Care Physician: Dr. Guilherme Erickson MD Reason For Visit: PERFORATED APPENDICITIS Diagnosis Discharge Diagnosis (1) Acute appendicitis: Status: Acute Code(s): K35.80 - Unspecified acute appendicitis Qualifiers: Acute appendicitis type: with generalized peritonitis Appendicitis abscess presence: with abscess Appendicitis gangrene presence: with gangrene Appendicitis perforation presence: with perforation Qualified Code(s): K35.211 - Acute appendicitis with generalized peritonitis, with perforation and abscess Plan: Patient is postoperative day 3 from laparoscopic appendectomy with partial cecectomy for intraoperative finding of perforated appendicitis. He is clinically improved with minimal abdominal discomfort. He reports ongoing GI function with more regular passage of flatus and additional bowel movement. He also is reporting improved appetite and resolution of some new heartburn that was experienced yesterday. Beyond this subjective assessment, patient's white blood cell count has returned to normal, he has been afebrile, and his drain output has become simply serous in character. With these improvements I will plan to de-escalate his treatment and prepare for discharge home potentially later today. ???Advance to regular diet ???Maintain dressing over ANTON site for 48 hours ???Transition to p.o. Augmentin from IV Zosyn Continue to encourage ambulation and I.S. Dispo: DC to home tentatively set up for this afternoon pending re-evaluation of patient's course after above changes. Please notify surgery of any significant developments. Medications at Discharge Home Medications losartan 100 mg tablet 100 mg PO DAILY 04/06/17 red yeast rice 600 mg capsule 600 mg PO DAILY 04/06/17 chlorthalidone 25 mg tablet 12.5 mg PO DAILY 08/27/21 cholecalciferol (vitamin D3) 50 mcg (2,000 unit) capsule 50 mcg PO DAILY 08/27/21 niacin 500 mg tablet 500 mg PO QODAY 08/27/21 levothyroxine 25 mcg tablet 25 mcg PO DAILY 11/27/24 omeprazole 20 mg tablet,delayed release 20 mg PO DAILY 11/28/24 amoxicillin 875 mg-potassium clavulanate 125 mg tablet 1 tab PO BID 1 day #2 tabs 11/30/24 Hospital Course Operations appendectomy (11/27/2024) Procedures None Summary of Care Provided Hospital Course: Patient is 74-year-old male who was admitted on 11/27/2024 via the ER after he presented with signs and symptoms of acute appendicitis. Given the diagnosis I recommended proceeding for emergent surgical appendectomy. Patient provided his consent and the operation was conducted the same evening. Intraoperatively I confirmed the presence of perforated appendicitis and patient was admitted postoperatively for ongoing IV antibiotic administration as well as monitoring for development of a postoperative ileus. With the latter concern, I was conservative with administration of the diet, but patient had a relatively uneventful course with just some abdominal distention that improved as he experienced return of bowel function and his diet was gradually advanced. He was maintained on IV antibiotics and we noted the normalization of his white blood cell count as well as his fever curve. Further, drain placed intraoperatively cleared for the character of its output. With these clinical improvements IV antibiotics were discontinued in favor of transition to oral antibiotics. He was also given a regular diet and his drain was discontinued on postoperative day 3. He tolerated these final inpatient therapy changes well and was thus granted discharge to home later the same day. Outpatient follow-up expectation was previously discussed along with ongoing care instructions. Physical Exam Const alert, oriented x3 and no apparent distress Resp normal respiratory effort GI GI Narrative: Minimally distended, soft, appropriately tender to palpation, Steri-Strips still intact. Dressing over suprapubic drain site. Weight / BMI Weight Weight: 194 lb 11.2 oz Body Mass Index (BMI) 33.4 ABG / Lab / Microbiology Data 11/30/24 05:23 11/29/24 05:25 Laboratory: Laboratory Results - last 24 hr 11/30/24 05:23: WBC 10.0, RBC 3.93 L, Hgb 12.3 L, Hct 37.7 L, MCV 95.9 H, MCH 31.3, MCHC 32.6, RDW Std Deviation 52.4 H, RDW Coeff of [place]oma 14.7 H, Plt Count 241, MPV 11.5, Immature Gran % (Auto) 0.400, Neut % (Auto) 78.0 H, Lymph % (Auto) 11.7 L, [place] % (Auto) 7.2, Eos % (Auto) 2.5, Baso % (Auto) 0.2, Absolute Neuts (auto) 7.8 H, Absolute Lymphs (auto) 1.17, Nucleated RBC % 0 Microbiology (more content not included)...[facility]08-01-2025 Progress note [facility] Medical Records Department [address] [place] [address] Progress Note - Surgery 11/30/24 0942 MR#: [id number] Acct: [id number] Name: DONELL HERRMANN Rep #:[id number] : 1950 74 From: Ketan Bruno PCP: Dr. Guilherme Erickson MD Status:ADM IN Location: [facility] [id number] Subjective Subjective Patient seen and examined during AM rounds. Is found sitting out of bed in the chair. He states that he was able to have a small bowel movement earlier this morning and ambulated 3 times yesterday afternoon. He reports that his pain hasbeen minimal and he has not even needed Tylenol for this discomfort. Lastly, heshares resolution of some heartburn/indigestion he had experienced yesterday andreports a stronger appetite today. Objective Data Objective Data Vital Signs: Vital Signs Temp Pulse Resp BP Pulse Ox O2 Del Method O2 Flow Rate 97.9 F 71 18 137/70 H 96 Room Air 2 11/30/24 07:49 11/30/24 07:49 11/30/24 07:49 11/30/24 07:49 11/30/24 07:49 11/30/24 07:55 11/28/24 16:17 Oxygen Flow Rate (L/min) 2 Oxygen Delivery Method Room Air Weight: 194 lb 11.2 oz Body Mass Index (BMI) 33.4 Intake & Output: Intake and Output for Last 24 Hours 11/28/24 11/29/24 11/30/24 23:59 23:59 23:59 Intake Total 3047.92 / 3047.92 2570 / 2570 1011.25 / 1011.25 Output Total 400 / 400 130 / 170 45 / 45 Balance 2647.92 / 2647.92 2440 / 2400 966.25 / 966.25 Lab / Micro Data 11/30/24 05:23 11/29/24 05:25 Labs: Laboratory Results - last 24 hr 11/30/24 05:23: WBC 10.0, RBC 3.93 L, Hgb 12.3 L, Hct 37.7 L, MCV 95.9 H, MCH 31.3, MCHC 32.6, RDW Std Deviation 52.4 H, RDW Coeff of [place] 14.7 H, Plt Count 241, MPV 11.5, Immature Gran % (Auto) 0.400, Neut % (Auto) 78.0 H, Lymph % (Auto) 11.7 L, [place] % (Auto) 7.2, Eos % (Auto) 2.5, Baso % (Auto) 0.2, Absolute Neuts (auto) 7.8 H, Absolute Lymphs (auto) 1.17, Nucleated RBC % 0 Micro: Microbiology 11/27/24 22:00 Aspirate - Abdominal Gram Stain - Final 11/27/24 22:00 Aspirate - Abdominal Wound Culture - Final Escherichia coli 11/27/24 22:00 Aspirate - Abdominal Anaerobic Culture - Preliminary 11/27/24 15:54 Blood Culture (Wb) - Left Hand Blood Culture - Preliminary No growth in 48 hours. 11/27/24 16:05 Urine, Clean Catch Urine Culture - Final Culture exhibits no growth. 11/27/24 15:40 Blood Culture (Wb) - Anticubital Left Blood Culture - Preliminary No growth in 48 hours. Physical Exam Const oriented x3 and no apparent distress Resp normal respiratory effort GI GI Narrative: Improved abdominal distention, mildly tympanic, soft, appropriately tender to palpation with just mild tenderness about port site incisions in right lower quadrant. Suprapubic drain with serous output. Assessment & Plan Assessment/Plan (1) Acute appendicitis: QUALIFIERS: Acute appendicitis type: with generalized peritonitis Appendicitis gangrene presence: with gangrene Appendicitis perforation presence: with perforation Appendicitis abscess presence: withabscess Qualified Code(s): K35.211 - Acute appendicitis with generalized peritonitis, with perforation and abscess PLAN: Patient is postoperative day 3 from laparoscopic appendectomy with partialcecectomy for intraoperative finding of perforated appendicitis. He is clinically improved with minimal abdominal discomfort. He reports ongoing GI function with more regular passage of flatus and additional bowel movement. He also is reporting improved appetite and resolution of some new heartburn that was experienced yesterday. Beyond this subjective assessment, patient's white blood cell count has returned to normal, he has been afebrile, and his drain output has become simply serous in character. With these improvements I will plan to de-escalate his treatment and prepare for discharge home potentially latertoday. ?Advance to regular diet ?Maintain dressing over ANTON site for 48 hours ?Transition to p.o. Augmentin from IV Zosyn Continue to encourage ambulation and I.S. Dispo: DC to home tentatively set up for this afternoon pending re-evaluation ofpatient's course after above changes. Please notify surgery of any significant developments. Charges/Coding Visit Charges Inpatient E&M: 49999 Subs Hosp L2 11/30/24 0949 Cosigner Signature (if applicable): CC: ~ Signed [facility]07-31-2025 Progress note Author Shawnee Hassan [facility] Note Date/Time November 29, 2024 8:34 [facility] Medical Records Department [address] [place] [address] Progress Note - Surgery 11/29/24 0639 MR#: [id number] Acct: [id number] Name: DONELL HERRMANN Rep #:[id number] : 1950 74 From: Shawnee LINDSAY PA-C PCP: Dr. Guilherme Erickson MD Status:ADM IN Location: [facility] [id number] Subjective Subjective Patient is evaluated resting comfortably in bed. He notes a moderate amount of flatus. He denies nausea, vomiting, fever. He has not had a bowel movement. He has passed flatus. He is tolerating his current clear liquid diet. Objective Data Objective Data Vital Signs: Vital Signs Temp Pulse Resp BP Pulse Ox O2 Del Method O2 Flow Rate 98.6 F 72 16 114/62 96 Room Air 2 11/29/24 04:10 11/29/24 04:10 11/29/24 04:10 11/29/24 04:10 11/29/24 04:10 11/29/24 04:10 11/28/24 16:17 Oxygen Flow Rate (L/min) 2 Oxygen Delivery Method Room Air Weight: 194 lb 11.2 oz Body Mass Index (BMI) 33.4 Intake & Output: Intake and Output for Last 24 Hours 11/27/24 11/28/24 11/29/24 23:59 23:59 23:59 Intake Total 2049 3047.92 / 3047.92 50 / 50 Output Total 85 / 85 400 / 400 Balance 1964 / 1964 2647.92 / 2647.92 50 / 50 Lab / Micro Data 11/29/24 05:25 11/29/24 05:25 Labs: Laboratory Results - last 24 hr 11/28/24 05:49: Sodium 136, Potassium 3.6, Chloride 101, Carbon Dioxide 19.8 L, Anion Gap 15, BUN 22 H, Creatinine 1.28 H, Estim Creat Clear Calc 49.97 L, Est GFR (MDRD) Non-Af 58 L, BUN/Creatinine Ratio 17.0, Glucose 120 H, Calcium 8.1 Micro: Microbiology 11/27/24 22:00 Aspirate - Abdominal Gram Stain - Final 11/27/24 22:00 Aspirate - Abdominal Wound Culture - Preliminary GNR lactose irrigator Physical Exam GI GI Narrative: Abdomen- soft, distended. Incisions c/d/i. No erythema or infection noted. ANTON drain intact with serosanguineous fluid. Assessment & Plan Assessment/Plan (1) Acute appendicitis: QUALIFIERS: Acute appendicitis type: with generalized peritonitis Appendicitis abscess presence: with abscess Appendicitis gangrene presence: with gangrene Appendicitis perforation presence: with perforation Qualified Code(s): K35.211 - Acute appendicitis with generalized peritonitis, with perforation and abscess PLAN: I am following this patient in conjunction with Dr. Parry. He has independently evaluated this patient. Labs reviewed. WBC trending down Continue clear liquids Keep ANTON drain until bowel movement Continue IV antibiotics Continue to encourage ambulation and I.S. We will continue to monitor this patient Charges/Coding Visit Charges Inpatient E&M: 33637 Subs Hosp L1 (post-op; no charge) 11/29/24 0834 <Electronically signed by Shawnee LINDSAY PA-C> Cosigner Signature (if applicable): CC: ~ Signed [facility] Work Phone: 1(878) 377-311307-31-2025 Progress note [facility] Medical Records Department [address] [place] [address] Progress Note - Surgery 11/29/24 0639 MR#: [id number] Acct: [id number] Name: DONELL HERRMANN Rep #:[id number] : 1950 74 From: Shawnee LINDSAY PA-C PCP: Dr. Guilherme Erickson MD Status:ADM IN Location: [place] [id number] Subjective Subjective Patient is evaluated resting comfortably in bed. He notes a moderate amount of flatus. He denies nausea, vomiting, fever. He has not had a bowel movement. He has passed flatus. He is tolerating his current clear liquid diet. Objective Data Objective Data Vital Signs: Vital Signs Temp Pulse Resp BP Pulse Ox O2 Del Method O2 Flow Rate 98.6 F 72 16 114/62 96 Room Air 2 11/29/24 04:10 11/29/24 04:10 11/29/24 04:10 11/29/24 04:10 11/29/24 04:10 11/29/24 04:10 11/28/24 16:17 Oxygen Flow Rate (L/min) 2 Oxygen Delivery Method Room Air Weight: 194 lb 11.2 oz Body Mass Index (BMI) 33.4 Intake & Output: Intake and Output for Last 24 Hours 11/27/24 11/28/24 11/29/24 23:59 23:59 23:59 Intake Total 2049 / 2049 3047.92 / 3047.92 50 / 50 Output Total 85 / 85 400 / 400 Balance 1964 / 1964 2647.92 / 2647.92 50 / 50 Lab / Micro Data 11/29/24 05:25 11/29/24 05:25 Labs: Laboratory Results - last 24 hr 11/28/24 05:49: Sodium 136, Potassium 3.6, Chloride 101, Carbon Dioxide 19.8 L, Anion Gap 15, BUN 22 H, Creatinine 1.28 H, Estim Creat Clear Calc 49.97 L, Est GFR (MDRD) Non-Af 58 L, BUN/Creatinine Ratio 17.0, Glucose 120 H, Calcium 8.1 Micro: Microbiology 11/27/24 22:00 Aspirate - Abdominal Gram Stain - Final 11/27/24 22:00 Aspirate - Abdominal Wound Culture - Preliminary GNR lactose irrigator Physical Exam GI GI Narrative: Abdomen- soft, distended. Incisions c/d/i. No erythema or infection noted. ANTON drain intact with serosanguineous fluid. Assessment & Plan Assessment/Plan (1) Acute appendicitis: QUALIFIERS: Acute appendicitis type: with generalized peritonitis Appendicitis abscess presence: with abscess Appendicitis gangrene presence: with gangrene Appendicitis perforation presence: with perforation Qualified Code(s): K35.211 - Acute appendicitis with generalized peritonitis, with perforation and abscess PLAN: I am following this patient in conjunction with Dr. Parry. He has independently evaluated this patient. Labs reviewed. WBC trending down Continue clear liquids Keep ANTON drain until bowel movement Continue IV antibiotics Continue to encourage ambulation and I.S. We will continue to monitor this patient Charges/Coding Visit Charges Inpatient E&M: 87486 Subs Hosp L1 (post-op; no charge) 11/29/24 0834 Cosigner Signature (if applicable): CC: ~ Signed [facility]07-30-2025 Procedure note [facility] Medical Records Department [address] [place] [address] Operative Report 11/27/248 MR#: [id number] Acct: [id number] Name: DONELL HERRMANN Rep #:[id number] : 1950 74 From: Ketan Bruno PCP: Dr. Guilherme Erickson MD Status:ADM IN Location: [facility] SS150-2 Procedures Digestive 40xxx-49xxx: 79087 Laparoscopy appendectomy Operative Report (Standard) Operative Information Date of Procedure: 11/27/24 Pre-Operative Diagnosis: Acute appendicitis Post-Operative Diagnosis: Acute, complicated appendicitis Surgery/Procedure Performed: Laparoscopic appendectomy with partial cecectomy paymaster of purses: No Type of Anesthesia: General/Supplemental RN Documented Start/Stop Times: Operation Date: 11/27/24 20:50 Case Time Anesthesia Start 11/27/24 20:44 Into Room 11/27/24 20:44 Procedure Start 11/27/24 21:15 Procedure End 11/27/24 22:48 Anesthesia End 11/27/24 22:56 Out of Room 11/27/24 22:56 Into Recovery 11/27/24 23:00 Out of Recovery 11/27/24 23:32 Procedure Start Time: 21:15 Procedure Stop Time: 22:48 Select all DRAINS/GRAFTS/IMPLANTS that apply: Drains (19 Mauritanian round Jacek drain) Drain details: Positioned in suprapubic port site Estimated Blood Loss: 50 Specimen collected: Yes Description of specimen(s) removed: Appendix and accompanying cecum Description of surgery: After appropriate identification in the preoperative holding area, the patient was brought to the operating room and placed supine on the operating room table. Antibiotics had been preoperatively administered by emergency medicine. SCDs were placed and connected. Patient was then induced with general endotracheal anesthetic. The abdomen was prepped and draped in usual sterile fashion. Formal timeout was conducted to confirm both the patient and the procedure. A supraumbilical incision was made and carried down to the level of the fascia which was sharply opened. After opening the peritoneum in like fashion a fingersweep was made to confirm position, and a balloon trocar was placed and pneumoperitoneum was established to 15 mmHg. Patient was positioned in Trendelenburg with the left side down. 2 additional 5 mm trocars were placed inthe left lower quadrant and suprapubic positions. The peritoneum was inspected and there were no signs of inadvertent injury from this Arreaga entry. The kapil endix was not immediately visualized as there appeared to be walling off of the right lower quadrant with adhesions between the mesoappendix and the abdominal sidewall. Once these adhesions were gently teased away from the sidewall the appendix was visualized immediately with severe gangrenous inflammation of the base with evident perforation and evan purulence/stool directly adjacent to the appendiceal base. Owing to the severity in the inflammation at the base of the appendix it was also exceptionally densely adherent to the retroperitoneum. Therefore a process of tedious blunt dissection followed by application of the laparoscopic harmonic scalpel was usedto mobilize the base of the appendix off the retroperitoneum taking care to avoid injury to the right common iliac artery at the pelvic brim. The mesoappendix was divided with application of a laparoscopic harmonic. It becameevident that I would need to mobilize a portion of the cecum as well to find a landing zone for our stapleline that was within healthy enough tissue. Thus the cecum was mobilized laterally along the white l ine of Toldt using a combination of blunt dissection and the harmonic scalpel. Then the base of theappendix/cecum was sealed and amputated with the use of an Endo KATHY stapler (a total of 3 loads were required to complete this transection). The appendix and accompanying colon was placed in an Endo Catch bag. The staple line was inspected for hemostasis. The right lower quadrant was copiously irrigated witha liter of sterile saline using the suction physiotherapy aide device. As much effluent as could bereasonably retrieved was retrieved with the suction physiotherapy aide device. I then fed a 19 Mauritanian round Jacek drain into the peritoneal cavity andbrought the drainage and out through the suprapubic port si te. The drain was positioned in the right lower quadrant in our surgical bed. It was secured at theskin with a 3-0 nylon suture. After hemostasis was confirmed again at the staple line, the appendix/colon was removed from the umbilical port site. Pneumoperitoneum was then evacuated and the supraumbilical port site fascia was closed with #1 Vicryl in a opbwju-[id number] fashion. The port sites wereinfiltrated with a total volume of 30 mL 0.25% bupivacaine with epinephrine. The skin of each port site was closed with 4-0 Monocryl in a subcuticular fashion. Steri-Strips and OpSite dressings were applied. A split gauze was positioned about the drain exit site and taped in place. Patient tolerated procedure well without any apparent complications. They were awoken from general anesthetic without issue and transferred to post anesthesia care unit for ongoing recovery. Surgical Findings: ? Purulence and evan stool in right lower quadrant going from perforation and gangrenous base of the appendix ? Well-perfused staple line was hemostatic at case conclusion Complications Complications: No Admit VTE Documentation VTE Mechan Device Prophylaxis: SCD's 11/28/24 1148 Cosigner Signature (if applicable): CC: Dr. Guilherme Erickson MD; Dr. Ketan Parry MD~ Signed [facility]07-30-2025 Progress note Author Shawnee Hassan [facility] Note Date/Time November 28, 2024 9:09 [facility] Medical Records Department [address] [place] [address] Progress Note - Surgery 11/28/24 0849 MR#: [id number] Acct: [id number] Name: DONELL HERRMANN Rep #:[id number] : 1950 74 From: Shawnee LINDSAY PA-C PCP: Dr. Guilherme Erickson MD Status:ADM [facility] Location: [place] [address] Subjective Subjective Patient evaluated resting comfortably in bed. He notes abdominal pain has improved since yesterday. He denies any nausea, vomiting over night. He notes feeling slightly feverish. He notes belching. No flatus or BM. Objective Data Objective Data Vital Signs: Vital Signs Temp Pulse Resp BP Pulse Ox O2 Del Method O2 Flow Rate 98.4 F 79 17 126/70 H 93 Room Air 2 11/28/24 08:15 11/28/24 08:15 11/28/24 08:15 11/28/24 08:15 11/28/24 08:48 11/28/24 08:48 11/28/24 08:13 Oxygen Flow Rate (L/min) 2 Oxygen Delivery Method Room Air Weight: 194 lb 11.2 oz Body Mass Index (BMI) 33.4 Intake & Output: Intake and Output for Last 24 Hours 11/26/24 11/27/24 11/28/24 23:59 23:59 23:59 Intake Total 2049 1047.92 / 1047.92 Output Total 340 / 340 Balance 1964 / 1964 707.92 / 707.92 Lab / Micro Data 11/28/24 05:49 11/28/24 05:49 Labs: Laboratory Results - last 24 hr 11/27/24 15:40: WBC 17.9 H, RBC 4.39 L, Hgb 13.8, Hct 41.3, MCV 94.1 H, MCH 31.4, MCHC 33.4, RDW Std Deviation 49.5 H, RDW Coeff of Paloma 14.3, Plt Count 202,MPV 10.7, Immature Gran % (Auto) 0.800, Neut % (Auto) 84.9 H, Lymph % (Auto) 6.0L, [place] % (Auto) 8.0, Eos % (Auto) 0.1, [...] Albumin 4.7, Globulin 4.6 H, Albumin/Globulin Ratio 1.0, TSH 2.420, Free T4 1.00, Free T3 pg/dL 2.6 11/27/24 16:05: Urine Color Straw, Urine Clarity Clear, Urine pH 6.0, Ur Specific Aneta 1.015, Urine Protein 100 H, Urine Glucose (UA) Normal, Urine Ketones Negative, Urine Occult Blood 50 H, Urine Nitrite Negative, Urine Bilirubin Negative, Urine Urobilinogen Normal, Ur Leukocyte Esterase Negative, Urine RBC 0-5 SEEN, Urine WBC 0-5 SEEN, Ur Squamous Epith Cells 0-5 SEEN, Urine Bacteria 0 SEEN, Urine Mucus 0 SEEN 11/28/24 05:49: WBC 13.5 H, RBC 4.01 L, Hgb 12.6 L, Hct 37.8 L, MCV 94.3 H, MCH 31.4, MCHC 33.3, RDW Std Deviation 51.1 H, RDW Coeff of Paloma 14.6, Plt Count 172,MPV 10.8, Immature Gran % (Auto) 0.700, Neut % (Auto) 88.9 H, Lymph % (Auto) 4.5L, [place] % (Auto) 5.8, Eos % (Auto) 0.0, Baso % (Auto) 0.1, Absolute Neuts (auto)12.0 H, Absolute Lymphs (auto) 0.61 L, Nucleated RBC % 0, Sodium 136, Potassium 3.6, Chloride 101, Carbon Dioxide 19.8 L, Anion Gap 15, BUN 22 H, Creatinine 1.28 H, Estim Creat Clear Calc 49.97 L, Est GFR (MDRD) Non-Af 58 L, BUN/Creatinine Ratio 17.0, Glucose 120 H, Calcium 8.1 Radiography Diagnostic Testing: Radiology Impression Abdomen/Pelvis CT 11/27/24 15:46 IMPRESSION: Acute appendicitis with significant surrounding inflammation and fluid. No periappendiceal abscess. No bowel obstruction. Moderate right inguinal hernia with bladder herniation. Reading Location: [facility] Physical Exam GI GI Narrative: Abdomen- soft, tenderness in the RLQ. ANTON drain intact with serosanguineous fluidnoted Assessment & Plan Assessment/Plan (1) Acute appendicitis: QUALIFIERS: Acute appendicitis type: with generalized peritonitis Appendicitis gangrene presence: with gangrene Appendicitis perforation presence: with perforation Appendicitis abscess presence: with abscess Qualified Code(s): K35.211 - Acute appendicitis with generalized peritonitis, with perforation and abscess PLAN: I am following this patient in conjunction with Dr. Parry. He will independently evaluate this patient. Labs reviewed. WBC trending down Continue IV antibiotics and fluids Start clear liquids Encourage ambulation and I.S Discussed with patient that he may be hospitalized for approximately 5 days due to ruptured appendicitis with purulence and stool contamination Continue ANTON drain until bowel function returns We will continue to monitor this patient Charges/Coding Visit Charges Inpatient E&M: 78990 Subs Hosp L1 (post-op; no charge) 11/28/24 0909 <Electronically signed by Shawnee LINDSAY PA-C> Cosigner Signature (if applicable): CC: ~ Signed [facility] Work Phone: 1(983) 472-754807-30-2025 Progress note [facility] Medical Records Department [address] [place] [address] Progress Note - Surgery 11/28/24 0849 MR#: [id number] Acct: [id number] Name: DONELL HERRMANN Rep #:[id number] : 1950 74 From: Shawnee LINDSAY PA-C PCP: Dr. Guilherme Erickson MD Status:ADM [facility] Location: [place] [address] Subjective Subjective Patient evaluated resting comfortably in bed. He notes abdominal pain has improved since yesterday.He denies any nausea, vomiting over night. He notes feeling slightly feverish. He notes belching. No flatus or BM. Objective Data Objective Data Vital Signs: Vital Signs Temp Pulse Resp BP Pulse Ox O2 Del Method O2 Flow Rate 98.4 F 79 17 126/70 H 93 Room Air 2 11/28/24 08:15 11/28/24 08:15 11/28/24 08:15 11/28/24 08:15 11/28/24 08:48 11/28/24 08:48 11/28/24 08:13 Oxygen Flow Rate (L/min) 2 Oxygen Delivery Method Room Air Weight: 194 lb 11.2 oz Body Mass Index (BMI) 33.4 Intake & Output: Intake and Output for Last 24 Hours 11/26/24 11/27/24 11/28/24 23:59 23:59 23:59 Intake Total 2049 1047.92 / 1047.92 Output Total 340 / 340 Balance 1964 / 1964 707.92 / 707.92 Lab / Micro Data 11/28/24 05:49 11/28/24 05:49 Labs: Laboratory Results - last 24 hr 11/27/24 15:40: WBC 17.9 H, RBC 4.39 L, Hgb 13.8, Hct 41.3, MCV 94.1 H, MCH 31.4, MCHC 33.4, RDW Std Deviation 49.5 H, RDW Coeff of Paloma 14.3, Plt Count 202,MPV 10.7, Immature Gran % (Auto) 0.800, Neut % (Auto) 84.9 H, Lymph % (Auto) 6.0L, [place] % (Auto) 8.0, Eos % (Auto) 0.1, [...] Albumin 4.7, Globulin 4.6 H, Albumin/Globulin Ratio 1.0, TSH 2.420, Free T4 1.00, Free T3 pg/dL 2.6 11/27/24 16:05: Urine Color Straw, Urine Clarity Clear, Urine pH 6.0, Ur Specific Aneta 1.015, Urine Protein 100 H, Urine Glucose (UA) Normal, Urine Ketones Negative, Urine Occult Blood 50 H, UrineNitrite Negative, Urine Bilirubin Negative, Urine Urobilinogen Normal, Ur Leukocyte Esterase Negative, Urine RBC 0-5 SEEN, Urine WBC 0-5 SEEN, Ur Squamous Epith Cells 0-5 SEEN, Urine Bacteria 0 SEEN,Urine Mucus 0 SEEN 11/28/24 05:49: WBC 13.5 H, RBC 4.01 L, Hgb 12.6 L, Hct 37.8 L, MCV 94.3 H, MCH 31.4, MCHC 33.3, RDW Std Deviation 51.1 H, RDW Coeff of Paloma 14.6, Plt Count 172,MPV 10.8, Immature Gran % (Auto) 0.700,Neut % (Auto) 88.9 H, Lymph % (Auto) 4.5L, [place] % (Auto) 5.8, Eos % (Auto) 0.0, Baso % (Auto) 0.1, Absolute Neuts (auto)12.0 H, Absolute Lymphs (auto) 0.61 L, Nucleated RBC % 0, Sodium 136, Potassium3.6, Chloride 101, Carbon Dioxide 19.8 L, Anion Gap 15, BUN 22 H, Creatinine 1.28 H, Estim Creat Clear Calc 49.97 L, Est GFR (MDRD) Non-Af 58 L, BUN/Creatinine Ratio 17.0, Glucose 120 H, Calcium 8.1 Radiography Diagnostic Testing: Radiology Impression Abdomen/Pelvis CT 11/27/24 15:46 IMPRESSION: Acute appendicitis with significant surrounding inflammation and fluid. No periappendiceal abscess. No bowel obstruction. Moderate right inguinal hernia with bladder herniation. Reading Location: [facility] Physical Exam GI GI Narrative: Abdomen- soft, tenderness in the RLQ. ANTON drain intact with serosanguineous fluidnoted Assessment & Plan Assessment/Plan (1) Acute appendicitis: QUALIFIERS: Acute appendicitis type: with generalized peritonitis Appendicitis gangrene presence: with gangrene Appendicitis perforation presence: with perforation Appendicitis abscess presence: withabscess Qualified Code(s): K35.211 - Acute appendicitis with generalized peritonitis, with perforation and abscess PLAN: I am following this patient in conjunction with Dr. Parry. He will independently evaluate this patient. Labs reviewed. WBC trending down Continue IV antibiotics and fluids Start clear liquids Encourage ambulation and I.S Discussed with patient that he may be hospitalized for approximately 5 days due to ruptured appendicitis with purulence and stool contamination Continue ANTON drain until bowel function returns We will continue to monitor this patient Charges/Coding Visit Charges Inpatient E&M: 52200 Subs Hosp L1 (post-op; no charge) 11/28/24 0909 Cosigner Signature (if applicable): CC: ~ Signed [facility]07-30-2025 Consult note Author Devonte Arevalo [facility] Note Date/Time November 27, 2024 11:2 0pm [facility] Medical Records Department [address] [place] [address] Anesthesia Postop Eval II 11/27/242319 MR#: [id number] Acct: [id number] Name: DONELL HERRMANN Rep #:[id number] : 1950 74 From: Devonte Arevalo MD PCP: Dr. Guilherme Erickson MD Status:ADM IN Y Race: C Location: [place] [address] Anesthesia Postop Eval I Sum Postop Eval Completion status Anesthesia document: Postop Eval 1 completed: Yes Anesthesia Postop Eval I Summary Anesthesia Postop Eval I Summary: Anesthesia Postop Eval I: Assessment Summary Airway patent Yes 11/27/24 23:04 Spontaneous unlabored Yes 11/27/24 23:04 respirations Mental status Asleep - Arousable 11/27/24 23:04 nausea No 11/27/24 23:04 Vomiting No 11/27/24 23:04 Anesthesia Postop Eval I: Fluid Summary Crystalloid volume administer 700 11/27/24 23:04 (ml) Colloids volume administered ( ml) Blood Product volume administered (ml) Total IV fluid infused 700 11/27/24 23:04 Anesthesia Postop Eval I: Summary Notes Anesthesia Complication No 11/27/24 23:04 Anesthesia Complication Comment: Post-operative progress note Anesthesia: Postop Eval II Evaluation Mental status: Awake and Calm Pain Level: 1 nausea: No Vomiting: No Complications Anesthesia Complication: No 11/27/242319 <Electronically signed by Devonte amaro MD> Date _ Devonte Arevalo MD Cosigner Signature: Date CC: ~ Signed [facility] Work Phone: 1(273) 758-881707-30-2025 Consult note Author Devonte Arevalo [facility] Note Date/Time November 27, 2024 11:0 4pm [facility] Medical Records Department [address] [place] [address] Anesthesia Postop Eval I 11/27/24 230 MR#: [id number] Acct: [id number] Name: DONELL HERRMANN Rep #:[id number] : 1950 74 From: Devonte Arevalo MD PCP: Dr. Guilherme Erickson MD Status:ADM IN Y Race: C Location: [place] [address] Anesthesia: Postop Eval I Current Vital Signs Temperature: 99.6 F Pulse Rate: 77 Blood Pressure: 130/60 Respiratory Rate: 16 Pulse Ox: 94 Oxygen Delivery Method: Nasal Cannula Oxygen Flow Rate (L/min): 2 Assessment Airway patent: Yes Spontaneous unlabored respirations: Yes Mental status: Asleep (Arousable) nausea: No Vomiting: No Anesthesia Complication: No Fluid Hydration Crystalloid volume administer (ml): 700 Total IV fluid infused: 700 Progress Note Anesthesia document: Postop Eval 1 completed: Yes 11/27/242303 <Electronically signed by Devonte amaro MD> Date _ Devonte Arevalo MD Cosigner Signature: Date CC: ~ Signed [facility] Work Phone: 1(456) 313-975407-29-2025 Consult note [facility] Medical Records Department [address] [place] [address] Anesthesia Postop Eval II 11/27/242319 MR#: [id number] Acct: [id number] Name: DONELL HERRMANN Rep #:[id number] : 1950 74 From: Devonte Arevalo MD PCP: Dr. Guilherme Erickson MD Status:ADM IN Y Race: C Location: [place] [address] Anesthesia Postop Eval I Sum Postop Eval Completion status Anesthesia document: Postop Eval 1 completed: Yes Anesthesia Postop Eval I Summary Anesthesia Postop Eval I Summary: Anesthesia Postop Eval I: Assessment Summary Airway patent Yes 11/27/24 23:04 Spontaneous unlabored Yes 11/27/24 23:04 respirations Mental status Asleep - Arousable 11/27/24 23:04 nausea No 11/27/24 23:04 Vomiting No 11/27/24 23:04 Anesthesia Postop Eval I: Fluid Summary Crystalloid volume administer 700 11/27/24 23:04 (ml) Colloids volume administered ( ml) Blood Product volume administered (ml) Total IV fluid infused 11/27/24 23:04 Anesthesia Postop Eval I: Summary Notes Anesthesia Complication No 11/27/24 23:04 Anesthesia Complication Comment: Post-operative progress note Anesthesia: Postop Eval II Evaluation Mental status: Awake and Calm Pain Level: 1 nausea: No Vomiting: No Complications Anesthesia Complication: No 11/27/24 2320 sondra BLUE> Date _ Devonte Arevalo MD Cosigner Signature: Date CC: ~ Signed [facility]07-29-2025 Consult note [facility] Medical Records Department [address] [place] [address] Anesthesia Postop Eval I 11/27/24 2301 MR#: [id number] Acct: [id number] Name: DONELL HERRMANN Rep #:[id number] : 1950 74 From: Devonte Arevalo MD PCP: Dr. Guilherme Erickson MD Status:ADM IN Y Race: C Location: [place] [address] Anesthesia: Postop Eval I Current Vital Signs Temperature: 99.6 F Pulse Rate: 77 Blood Pressure: 130/60 Respiratory Rate: 16 Pulse Ox: 94 Oxygen Delivery Method: Nasal Cannula Oxygen Flow Rate (L/min): 2 Assessment Airway patent: Yes Spontaneous unlabored respirations: Yes Mental status: Asleep (Arousable) nausea: No Vomiting: No Anesthesia Complication: No Fluid Hydration Crystalloid volume administer (ml): 700 Total IV fluid infused: 700 Progress Note Anesthesia document: Postop Eval 1 completed: Yes 11/27/24 2304 sondra BLUE> Date _ Devonte Arevalo MD Cosigner Signature: Date CC: ~ Signed [facility]07-29-2025 Consult note Author Devonte [facility] Note Date/Time November 27, 2024 8:44 pm [facility] Medical Records Department [address] [place] [address] Pre-Anesthesia Evaluation 11/27/242037 MR#: [id number] Acct: [id number] Name: DONELL HERRMANN Rep #:[id number] : 1950 74 From: Devonte Arevalo MD PCP: Dr. Guilherme Erickson MD Status:ADM IN Y Race: C Location: [place] [address] ASA Classification* ASA Classification ASA Classification: 2 and E Assessment & Plan Anesthesia* Anesthesia Assessment Anesthesia Assessment: Discussed sedation and/or anesthesia options, risks, benefits, and alternatives with patient/parents/legal guardian/POA. Questions invited. The patient/parents/legal guardian/POA seems to understand and agrees to proceedwith anesthesia plan. Reviewed the physical assessment, medical history, allergy history and patient home medications list prior to surgery/procedure/anesthetic and documented any changes. Performed airway and anesthesia risk assessments. Anesthesia Type Anesthesia Type: General History Source History Obtained from:: Patient and Chart Anesthesia Focused Assessment* Temperature: 99 F Pulse Rate: 82 Blood Pressure: 131/71 Respiratory Rate: 20 Pulse Ox: 95 Oxygen Delivery Method: Room Air Airway Assessment Mouth opens: >3 cm Mallampati Score: II Teeth Condition: Loose (Patient has a loose tooth right lower molar.) Neck Range of motion (ROM): Limited ROM (Somewhat Decreased) Labs Anesthesia Preop lab: CBC WBC 17.9 K/mm3 (4.4-11.0) H 11/27/24 15:40 5 RBC 4.39 M/mm3 (4.6-6.2) L 11/27/24 15:40 11/27/24 Hgb 13.8 g/dL (13.0-16.5) 11/27/24 15:40 11/27/24 Hct 41.3 % (40-54) 11/27/24 15:40 11/27/24 Plt Count 202 K/mm3 (150-450) 11/27/24 15:40 11/27/24 CHEMISTRY Potassium 3.5 mmol/L (3.3-5.1) 11/27/24 15:40 11/27/24 Sodium 134 mmol/L (133-145) 11/27/24 15:40 11/27/24 BUN 23 mg/dL (4-19) H 11/27/24 15:40 11/27/24 Creatinine 1.42 mg/dL (0.70-1.20) H 11/27/24 15:40 Glucose 111 mg/dL (70-99) H 11/27/24 15:40 11/27/24 TSH 2.420 uIU/mL (0.300-4.200) 11/27/24 15:40 10/31 01/24 COAG PT 14.1 SECONDS (11.7-14.9) 11/27/24 15:40 Pre-Assessment Diagnosis/Proposed Procedure Planned Operative Procedure(s): Laparoscopic appendectomy. 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 When Was Last Pacemaker Check QUESTION #4 FULL TEXT: You/Your Family Experience fever (hyperthermia) with Anesthesia Last Oral Intake Last Oral intake: Last Oral Intake NPO since Meds taken in AM with sips of water? 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 Female HX of Motion Sickness HX of N/V After Surgery Non-Smoker Duration of Surgery greater than 60 minutes Number of Risk Factors PONV Score Height & Weight Height & Weight: Anesthesia: Height & Weight Height 5 ft 4 in 11/27/24 18:58 Weight: 88.496 kg 11/27/24 18:58 Body Mass Index (BMI) 33.5 11/27/24 18:58 Respiratory Assessment Respiratory Assessment - terrazzo tile setter: Respiratory Tract Infection Hx - terrazzo tile setter Hx Respiratory Tract Infection No 11/27/24 18:58 STOP Sleep Apnea STOP Sleep Apnea - terrazzo tile setter: STOP Sleep Apnea - terrazzo tile setter Hx Hypertension Yes 11/27/24 18:58 Hx Sleep Apnea No 11/27/24 18:58 CPAP BIPAP Do you snore loudly (louder Yes 11/27/24 18:58 than talking or can be heard Do you often feel tired/ No 11/27/24 18:58 fatigued/ sleepy during daytime? Has anyone observed you stop No 11/27/24 18:58 breathing during sleep? STOP Results Positive 11/27/24 18:58 QUESTION #5 FULL TEXT : Do you snore loudly (louder than talking or can be heard through closed doors)? 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 Specify any problems Hx of Preganancy in last 3 Months Nurse Filling Out Transfusion & Questions: Date: Time: Patient unable to answer at this time (ie. 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 11/27/242043 <Electronically signed by Devonte amaro MD> Date _ Devonte Arevalo MD Cosigner Signature: Date CC: ~ Signed [facility] Work Phone: 1([phone]) 758-598607-29-2025 History and physical note Author Ketan Parry [facility] Note Date/Time November 27, 2024 8:16 pm [facility] Medical Records Department [address] [place] [address] History & Physical Exam 11/27/24 190 MR#: [id number] Acct: [id number] Name: DONELL HERRMANN Rep #:[id number] : 1950 74 From: Ketan Bruno PCP: Dr. Guilherme Erickson MD Status:ADM IN Location: [facility] GW847-3 HPI - General General Date of Admission: 11/27/24 Chief Complaint: Acute onset right lower quadrant pain HPI Narrative DONELL HERRMANN, is a 74 M who presents to [facility] with complaints of progressive, acute onset [...] periappendiceal fluid but no evan abscess formation. COUNT INCLUDES THE [facility] Medical History (Updated 11/27/24 @ 18:59 [...] (Auto) 84.9 H, Lymph % (Auto) 6.0L, [place] % (Auto) 8.0, Eos % (Auto) 0.1, [...] Clarity Clear, Urine pH 6.0, Ur Specific Aneta 1.015, Urine Protein 100 H, Urine Glucose [...] inguinal hernia with bladder herniation. Reading Location: [facility] Assessment & Plan Assessment/Plan (1) Acute [...] Parry MD General Surgery Endocrine Surgery Pager: [facility] [address] [place] [address], [address] [place] [address] Office: [phone] Charges/Coding Visit Charges Inpatient E&M: 33140 Init Hosp L2 11/27/241913 <Electronically signed by Ketan Parry MD> Cosigner [...] MD; Dr. Ketan Parry MD ~* Signed [facility] Work Phone: 1(546) 383-756507-29-2025 Consult note [facility] Medical Records Department [address] [place] [address] Pre-Anesthesia Evaluation 11/27/242037 MR#: [id number] Acct: [id number] Name: DONELL HERRMANN Rep #:[id number] : 1950 74 From: Devonte Arevalo MD PCP: Dr. Guilherme Erickson MD Status:ADM IN Y Race: C Location: [place] [id number] -[id number] ASA Classification* ASA Classification ASA Classification: 2 and E Assessment & Plan Anesthesia* Anesthesia Assessment Anesthesia Assessment: Discussed sedation and/or anesthesia options, risks, benefits, and alternatives with patient/parents/legal guardian/POA. Questions invited. The patient/parents/legal guardian/POA seems to understand and agrees to proceedwith anesthesia plan. Reviewed the physical assessment, medical history, allergy history and patient home medications list prior to surgery/procedure/anesthetic and documented any changes. Performed airway and anesthesia risk assessments. Anesthesia Type Anesthesia Type: General History Source History Obtained from:: Patient and Chart Anesthesia Focused Assessment* Temperature: 99 F Pulse Rate: 82 Blood Pressure: 131/71 Respiratory Rate: 20 Pulse Ox: 95 Oxygen Delivery Method: Room Air Airway Assessment Mouth opens: >3 cm Mallampati Score: II Teeth Condition: Loose (Patient has a loose tooth right lower molar.) Neck Range of motion (ROM): Limited ROM (Somewhat Decreased) Labs Anesthesia Preop lab: CBC WBC 17.9 K/mm3 (4.4-11.0) H 07/29/25 15:40 5 RBC 4.39 M/mm3 (4.6-6.2) L 11/27/24 15:40 11/27/24 Hgb 13.8 g/dL (13.0-16.5) 11/27/24 15:40 11/27/24 Hct 41.3 % (40-54) 11/27/24 15:40 11/27/24 Plt Count 202 K/mm3 (150-450) 11/27/24 15:40 11/27/24 CHEMISTRY Potassium 3.5 mmol/L (3.3-5.1) 11/27/24 15:40 11/27/24 Sodium 134 mmol/L (133-145) 11/27/24 15:40 11/27/24 BUN 23 mg/dL (4-19) H 11/27/24 15:40 11/27/24 Creatinine 1.42 mg/dL (0.70-1.20) H 11/27/24 15:40 Glucose 111 mg/dL (70-99) H 11/27/24 15:40 11/27/24 TSH 2.420 uIU/mL (0.300-4.200) 11/27/24 15:40 10/31 01/24 COAG PT 14.1 SECONDS (11.7-14.9) 11/27/24 15:40 Pre-Assessment Diagnosis/Proposed Procedure Planned Operative Procedure(s): Laparoscopic appendectomy. 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 When Was Last Pacemaker Check QUESTION #4 FULL TEXT: You/Your Family Experience fever (hyperthermia) with Anesthesia Last Oral Intake Last Oral intake: Last Oral Intake NPO since Meds taken in AM with sips of water? 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 Female HX of Motion Sickness HX of N/V After Surgery Non-Smoker Duration of Surgery greater than 60 minutes Number of Risk Factors PONV Score Height & Weight Height & Weight: Anesthesia: Height & Weight Height 5 ft 4 in 11/27/24 18:58 Weight: 88.496 kg 11/27/24 18:58 Body Mass Index (BMI) 33.5 11/27/24 18:58 Respiratory Assessment Respiratory Assessment - terrazzo tile setter: Respiratory Tract Infection Hx - terrazzo tile setter Hx Respiratory Tract Infection No 11/27/24 18:58 STOP Sleep Apnea STOP Sleep Apnea - terrazzo tile setter: STOP Sleep Apnea - terrazzo tile setter Hx Hypertension Yes 11/27/24 18:58 Hx Sleep Apnea No 11/27/24 18:58 CPAP BIPAP Do you snore loudly (louder Yes 11/27/24 18:58 than talking or can be heard Do you often feel tired/ No 11/27/24 18:58 fatigued/ sleepy during daytime? Has anyone observed you stop No 11/27/24 18:58 breathing during sleep? STOP Results Positive 11/27/24 18:58 QUESTION #5 FULL TEXT : Do you snore loudly (louder than talking or can be heard through closeddoors)? 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 Specify any problems Hx of Preganancy in last 3 Months Nurse Filling Out Transfusion & Questions: Date: Time: Patient unable to answer at this time (ie. 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 11/27/242043 sondra BLUE> Date _ Devonte Trujillo Signature: Date CC: ~ Signed [facility]07-29-2025 Discharge summary Author Kal Mcdonald [facility] Note Date/Time November 27, 2024 6:22 pm [facility] Medical Records Department [address] [place] [address] Emergency Department Summary 11/27/24 MR#: [id number] Acct: [id number] Name: DONELL HERRMANN Rep #:[id number] : 1950 74 From: Kal Mcdonald DO [...] tarry stools or blood in his stool. [facility] Medical History Hypothyroidism HTN (hypertension) Home Medications [...] Patient follow commands knew he was at [facility] the year is 2024 Skin: Warm, [...] evidence of first-degree AV block with a FL interval of 210. Patient was given dose [...] 84.9 H Lymph % (Auto) 6.0 L [place] % (Auto) 8.0 Eos % (Auto) 0.1 [...] Clarity Clear Urine pH 6.0 Ur Specific Aneta 1.015 Urine Protein 100 H Urine Glucose [...] inguinal hernia with bladder herniation. Reading Location: [facility] Discharge Plan Triage Chief Complaint: Abd [...] MD [Primary Care Provider] - Print Language: Monegasque Disposition Disposition: Acute Care Hospital [facility] What to do if you have Problems For any increased pain, shortness of breath, bleeding, nausea or vomiting, chestpain, or any unexpected problems, contact your Primary Care Provider. Call [facility] ([phone]) or report to the closest Emergency Room. Call 911 if necessary. 11/27/241821 <Electronically signed by Kal Mcdonald DO> Cosigner Signature (if applicable): CC: Dr. Guilherme Erickson MD ~ Signed [facility] Work Phone: [phone]) 996-942807-29-2025 Discharge summary Author Kal Mcdonald [facility] Note Date/Time November 27, 2024 6:22 pm [facility] Medical Records Department [address] [place] [address] Emergency Department Summary 11/27/24 MR#: [id number] Acct: [id number] Name: DONELL HERRMANN Rep #:[id number] : 1950 74 From: Kal Mcdonald DO [...] tarry stools or blood in his stool. [facility] Medical History Hypothyroidism HTN (hypertension) Home Medications [...] Patient follow commands knew he was at [facility] the year is 2024 Skin: Warm, [...] evidence of first-degree AV block with a FL interval of 210. Patient was given dose [...] 84.9 H Lymph % (Auto) 6.0 L [place] % (Auto) 8.0 Eos % (Auto) 0.1 [...] Clarity Clear Urine pH 6.0 Ur Specific Aneta 1.015 Urine Protein 100 H Urine Glucose [...] inguinal hernia with bladder herniation. Reading Location: [facility] Discharge Plan Triage Chief Complaint: Abd [...] MD [Primary Care Provider] - Print Language: Monegasque Disposition Disposition: Acute Care [facility] What to do if you have Problems For any increased pain, shortness of breath, bleeding, nausea or vomiting, chestpain, or any unexpected problems, contact your Primary Care Provider. Call [facility] ([phone]) or report to the closest Emergency Room. Call 911 if necessary. 11/27/24 182 <Electronically signed by Kal Mcdonald DO> Cosigner Signature (if applicable): CC: Dr. Guilherme Erickson MD ~ Signed [facility] Work Phone: [phone] History and physical note [facility] Medical Records Department [address] [place] [address] History & Physical Exam 11/27/24 1908 MR#: [id number] Acct: [id number] Name: DONELL HERRMANN Rep #:[id number] : 1950 74 From: Ketan Bruno PCP: Dr. Guilherme Erickson MD Status:ADM IN Location: [facility] FP608-0 HPI - General General Date of Admission: 11/27/24 Chief Complaint: Acute onset right lower quadrant pain HPI Narrative DONELL HERRMANN, is a 74 M who presents to [facility] with complaints of progressive, acute onset [...] periappendiceal fluid but no evan abscess formation. COUNT INCLUDES THE [facility] Medical History (Updated 11/27/24 @ 18:59 [...] to palpation, hirsute, no scars, marked tenderness ofthe right lower quadrant with severe tenderness over [...] (Auto) 84.9 H, Lymph % (Auto) 6.0L, [place] % (Auto) 8.0, Eos % (Auto) 0.1, [...] Clarity Clear, Urine pH 6.0, Ur Specific Aneta 1.015, Urine Protein 100 H, Urine Glucose (UA) Normal, Urine Ketones Negative, Urine Occult Blood 50 H, UrineNitrite Negative, Urine Bilirubin Negative, Urine Urobilinogen Normal, Ur Leukocyte Esterase Negative, Urine RBC 0-5 SEEN, Urine WBC 0-5 SEEN, Ur Squamous Epith Cells 0-5 SEEN, Urine Bacteria 0 SEEN,Urine Mucus 0 SEEN Imaging Radiology Impression Abdomen/Pelvis CT 11/27/24 15:46 IMPRESSION: Acute appendicitis with significant surrounding inflammation and fluid. No periappendiceal abscess. No bowel obstruction. Moderate right inguinal hernia with bladder herniation. Reading Location: [facility] Assessment & Plan Assessment/Plan (1) Acute [...] of symptoms and the CT evidence of periappendicealfluid for his risk of perforation. As such I candidly discussed need to proceed emergently to the operating room for surgical appendectomy. I also discussed the potential need for a partial cecectomyand the name of trying to obtain healthy tissue to land a staple line as well as thepotential for requiring an inpatient admission postoperatively on the account ofperitoneal contamination and associated risk for ileus/postoperative abscess. Patient and his confirm understanding. Antibiotics were dosed empirically by emergency medicine. Plan to proceed to the operating room for laparoscopic a ppendectomy versus possible partial cecectomy at first availability. Both anesthesia and the operating room team notified. Ketan Parry MD General Surgery Endocrine Surgery Pager: [facility] [address] [place] [address], [facility], [address] [place] [address] Office: [phone] Charges/Coding Visit Charges Inpatient E&M: 93100 Init Hosp L2 11/27/241913 Cosigner Signature (if applicable): CC: Dr. Guilherme Erickson MD; Dr. Ketan Parry MD~ Signed ADDENDUM by Dr. Ketan Parry MD on 11/27/24 at 2015 Addendum Beyond immediate findings enumerated above regarding [...] concurrent infection. Patient and his confirmed understanding. 11/27/242015 Cosigner Signature (if applicable): cc: Dr. Guilherme Erickson MD; Dr. Ketan Parry MD ~* Signed [facility]07-29-2025 [facility] Medical Records Department [address] [place] [address] History Physical Exam 11/27/24 1908 MR#: [id number] Acct: [id number] Name: DONELL HERRMANN Rep #: [id number] : 1950 74 From: Ketan Parry MD PCP: Dr. Guilherme Erickson MD Status:ADM IN Location: [place] 024520-1 HPI - General General Date of Admission: 11/27/24 Chief Complaint: Acute onset right lower quadrant pain HPI Narrative DONELL HERRMANN, is a 74 M who presents to [facility] with complaints of progressive, acute onset abdominal pain has become well localized to the right lower quadrant. He presents today with his . He shares that he for started with pain approximately 48 hours ago following dinner. He shares that he had recently been moving a trailer around and had a fairly recent history of a pulled muscle so he initially suspected that his pain symptoms were similarly related. However, his notes that she first detected a low-grade fever at approximately 1:00 AM yesterday. Mr. Herrmann shares a history of anorexia with his last meal coming at dinnertime yesterday. There has been some associated nausea but no vomiting. He reports his bowel movements have been normal. Patient reports a history of high blood pressure, hypothyroidism, and reflux but states that his high blood pressure and reflux are well-controlled. Has no prior surgical history. ED workup remarkable for CBC that demonstrates leukocytosis of greater than 17,000. CT imaging of the abdomen pelvis performed shows acute appendicitis with some periappendiceal fluid but no evan abscess formation. COUNT INCLUDES THE [facility] Medical History (Updated 11/27/24 @ 18:59 by Esme Moreno) Non-smoker Hernia GERD (gastroesophageal reflux disease) Hypothyroidism HTN (hypertension) Home Medications ???Medication ???Instructions ???Recorded ???Last Taken ???Type losartan 100 mg tablet 100 mg PO DAILY 04/06/17 11/24/24 History red yeast rice 600 mg capsule 600 mg PO DAILY 04/06/17 11/27/24 History chlorthalidone 25 mg tablet 12.5 mg PO DAILY 08/27/21 11/27/24 History cholecalciferol (vitamin D3) 50 50 mcg PO DAILY 08/27/21 11/27/24 History mcg (2,000 unit) capsule niacin 500 mg tablet 500 mg PO QODAY 08/27/21 11/26/24 History levothyroxine 25 mcg tablet 25 mcg PO DAILY 11/27/24 11/27/24 History Allergy/AdvReac Type Severity Reaction Status [...] RDW Coeff of Paloma 14.3, Plt Count 202, MPV 10.7, Immature Gran % (Auto) 0.800, Neut % (Auto) 84.9 H, Lymph % (Auto) 6.0 L, [place] % (Auto) 8.0, Eos % (Auto) 0.1, B (more content not included)...[facility]07-29-2025 Discharge summary [facility] Medical Records Department [address] [place] [address] Emergency Department Summary 11/27/24 MR#: [id number] Acct: [id number] Name: DONELL HERRMANN Rep #:[id number] : 1950 74 From: Kal Mcdonald DO [...] tarry stools or blood in his stool. [facility] Medical History Hypothyroidism HTN (hypertension) Home Medications [...] Patient follow commands knew he was at [facility] the year is 2024 Skin: Warm, [...] viral gastroenteritis, musculoskeletal strain. Once workup is obtainedreviewed he will be reevaluated. Patient to give IV fluids morphine Zofran. Patient CBC was significant for leukocytosis of 17,000, hemoglobin 13.8, platelet count of 202. Patient's INR normal at 1.1, PT of 14.1. Patient sodiumwas 134, potassium normal at 3.5, creatinine was1.42 he has have underlying chronic kidney disease based on previous blood draws. Patient's AST andALT were 24 and 20 respectively total bilirubin normal at 0.95. Patient's CT abdomen pelvis IV contrast reviewed and showed acute appendicitis with significant surrounding inflammation and fluid no periappendiceal abscess no bowel obstruction. Moderate right inguinal hernia with bladder herniation. Patient is EKG showed sinus rhythm with a rate of 96 bpm with evidence of first- degree AV block with a FL interval of 210. Patient was given dose [...] 84.9 H Lymph % (Auto) 6.0 L [place] % (Auto) 8.0 Eos % (Auto) 0.1 [...] Clarity Clear Urine pH 6.0 Ur Specific Aneta 1.015 Urine Protein 100 H Urine Glucose [...] inguinal hernia with bladder herniation. Reading Location: [facility] Discharge Plan Triage Chief Complaint: Abd [...] MD [Primary Care Provider] - Print Language: Monegasque Disposition Disposition: Acute Care [facility] What to do if you have Problems For any increased pain, shortness of breath, bleeding, nausea or vomiting, chestpain, or any unexpected problems, contact your Primary Care Provider. Call [facility] ([phone]) or report tothe closest Emergency Room. Call 911 if necessary. 11/27/24 1822 Cosigner Signature (if applicable): CC: Dr. Guilherme Erickson MD ~ Signed [facility]07-29-2025 Radiology Diagnostic study note [facility] Services [address] [place], [place] [id number] Abdomen/Pelvis W IV Cont ONLY MR#: [id number] Acct: [id number] Name: DONELL HERRMANN Rep #: [id number] : 1950 M 74 From: Lupe French MD PCP: Dr. Guilherme Erickson MD Status: REG ER Study:Abdomen/Pelvis W IV Cont ONLY Date of E xam: 11/27/24 Exam# [id number] Ordering Dr: Servando Mcdonald DO PROCEDURE: ABDOMEN/PELVIS [...] demonstrate no focal pulmonary mass or consolidations. Bibasilarsubsegmental atelectasis. Extensive coronary atherosclerosis. The liver, spleen, [...] inguinal hernia with bladder herniation. Reading Location: [facility] CC: Dr. Guilherme Erickson MD; Dr. Kal Mcdonald DO ~ Therapeutic Radiologist: Signed [facility]07-13-2025 Evaluation note* Diagnosis Onset Date Resolution Status Admit Date Contact dermatitis acute October 302024 10:25am [facility] Work Phone: 1(216) 926-823907-13-2025 Evaluation note* Diagnosis Onset Date Resolution Status Admit Date Contact dermatitis acute October 302024 10:25am Acute appendicitis acute October 312024 6:39pm [facility] Work Phone: 1(633) 752-895407-13-2025 Evaluation note* Diagnosis Onset Date Resolution Status Admit Date Contact dermatitis acute October 302024 10:25am Acute appendicitis acute November 012024 11:37am [facility] Work Phone: 1(358) 594-648807-13-2025 Evaluation note* Diagnosis Onset Date Resolution Status Admit Date Contact dermatitis acute October 302024 10:25am Acute appendicitis resolved November 012024 11:37am [facility] Work Phone: 1(150) 692-274607-13-2025 Evaluation note* Diagnosis Onset Date Resolution Status Admit Date Contact dermatitis acute October 302024 10:25am Acute appendicitis resolved November 012024 11:37am S/P appendectomy acute November 302024 10:14am Bilateral inguinal hernia without obstruction or gangrene acute February 11 8:33am Umbilical hernia without obstruction and without gangrene acute February 11 8:33am [facility] Work Phone: Evaluation noteNo assessment information available [facility] Work Phone: Evaluation note* Diagnosis Onset Date Resolution Status Chronic cough chronic [facility] Work Phone: History and physical note Author Ketan Parry [facility] Note Date/Time November 27, 2024 8:16 pm [facility] Medical Records Department [address] [place] [address] History & Physical Exam 11/27/24 1908 MR#: [id number] Acct: [id number] Name: DONELL HERRMANN Rep #:[id number] : 1950 74 From: Ketan Bruno PCP: Dr. Guilherme Erickson MD Status:ADM IN Location: [facility] LI591-8 HPI - General General Date of Admission: 11/27/24 Chief Complaint: Acute onset right lower quadrant pain HPI Narrative DONELL HERRMANN, is a 74 M who presents to [facility] with complaints of progressive, acute onset [...] periappendiceal fluid but no evan abscess formation. COUNT INCLUDES THE [facility] Medical History (Updated 11/27/24 @ 18:59 [...] (Auto) 84.9 H, Lymph % (Auto) 6.0L, [place] % (Auto) 8.0, Eos % (Auto) 0.1, [...] Clarity Clear, Urine pH 6.0, Ur Specific Aneta 1.015, Urine Protein 100 H, Urine Glucose [...] inguinal hernia with bladder herniation. Reading Location: [facility] Assessment & Plan Assessment/Plan (1) Acute [...] Parry MD General Surgery Endocrine Surgery Pager: [facility] [address] [place] [address], [address] [place] [id number] Office: [phone] Charges/Coding Visit Charges Inpatient E&M: 45374 Init Hosp L2 11/27/241913 <Electronically signed by Ketan Parry MD> Cosigner [...] MD; Dr. Ketan Parry MD ~* Signed [facility] Work Phone: Progress note Author Ketan Parry [facility] Note Date/Time February 11, 2025 9 :37am [facility] [address] [place] [address] OFFICE VISIT Date of Service: 02/11/25 MR#: [id number] Acct: [id number] Name: DONELL HERRMANN Rep #: [id number] : 1950 Provider: Dr. Robin Parry MD Age/Sex: 74/M Location: [facility] Status: Signed Intake Vital Signs 11/28/24 00:01 02/11/25 08:50 Height 5 ft 4 in 5 ft 4 in Weight: 195 lb 4 oz BMI 33.5 BP 150/77 H Blood Pressure Location Rt brachial Position Sitting Respiration 18 Pulse 72 Pulse Source Monitor Temp 97.9 F Temp Source Temporal Pulse Oximetry (%) 97 Oxygen Delivery Method room air Intake Visit Reasons: DISCUSS INGUINAL HERNIA Chief Complaint: discuss inguinal hernia Accompanied by: Is patient in pain?: No Allergies pneumococcal vaccine (From Pneumovax-23) Adverse Reaction (Verified 02/11/25 08:51) rash on arms Medications ?Medication ?Instructions ?Recorded ?Confirmed ?Type losartan 100 mg tablet 100 mg PO DAILY 04/06/17 History red yeast rice 600 mg capsule 600 mg PO DAILY 04/06/17 02/11/25 History chlorthalidone 25 mg tablet 12.5 mg PO DAILY 08/27/21 02/11/25 History cholecalciferol (vitamin D3) 50 50 mcg PO DAILY 02/11/25 History mcg (2,000 unit) capsule niacin 500 mg tablet 500 mg PO QODAY 08/27/21 History levothyroxine 25 mcg tablet 25 mcg PO DAILY 11/27/24 1 History omeprazole 20 mg tablet,delayed 20 mg PO DAILY 5 02/11/25 History release Have you fallen in the past year?: No PFSH Medical History (Updated 02/11/25 @ 15:[address] Ketna Parry MD) Right inguinal hernia Non-smoker Hernia GERD (gastroesophageal reflux disease) Hypothyroidism HTN (hypertension) Surgical History (Updated 02/11/25 @ 08:50 by Jennifer Easton LPN) S/P appendectomy Social History Smoking Status: Never smoker alcohol intake: never substance use type: does not use HPI HPI HPI: The patient is a 74-year-old male known to me for a history of perforated appendicitis that underwent operation 11/28/2024. He is presenting for follow-upregarding multiple hernias identified during a prior appendicitis workup. He is accompanied by his . The patient reports occasional mild discomfort in the right groin, describing itas a brief, pulling sensation that resolves spontaneously and occurs infrequently. He denies left-sided groin discomfort and denies any bothersome symptoms from the umbilical region. He maintains regular bowel habits with dailyMetamucil use, though he notes a tendency toward constipation if he discontinuesit. 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 He denies any history of staph or skin infections, stating that his only prior hospitalizations were for appendicitis and cataract surgery. 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 ROS General General: No weight change, appetite, fatigue, colon cancer, breast cancer or weakness HEENT HEENT: Yes eye injury; No difficulty swallowing, eye surgery, swollen glands or hoarseness Endo Endocrine: Yes thyroid disease; No diabetes mellitus, thyroid cancer, Hair loss, heat intolerance or cold intolerance Skin Skin: No rash or changing moles Musc Musculoskeletal: Yes arthritis; No back problems, rheumatoid arthritis, gout or joint pain Cardio Cardiovascular: Yes high blood pressure; No murmur, pacemaker, heart disease, atrial fibrillation, heart attack, heart stent, palpitations, shortness of breath with exertion or chest pain Psych Psychiatric: No depression, anxiety or hearing voices Resp Respiratory: No shortness of breath, No sleep apnea, No cough, No COPD, No asthma, No emphysema and No wheezing Gastro Gastrointestinal: No abdominal pain, No nausea or vomiting, No diarrhea, No constipation, No blood in stool, Yes acid reflux, No hemorrhoids, No ulcers, No gallbladder problem and No black,tarry stools Abdullahi Hematologic: No blood thinners, No blood disorders, No bleeding, No anemia and No blood clots Neuro Neurologic: No numbness, No tingling and No weakness Exam Const General: cooperative Nutritional Appearance: obese Orientation: alert and oriented x3 Resp Effort & Inspection: normal respiratory effort GI Other: Umbilical hernia with partially incarcerated fatty tissue. Patient has no tenderness with palpation. Fascial defect estimated about 2-1/2 cm. Other: Bilateral descended testes with left epididymal cyst? Bilateral indirect inguinal hernia defects. Assessment and Plan Assessment and Plan (1) Bilateral inguinal hernia without obstruction or gangrene: Status: Acute Qualifiers: Recurrence: non-recurrent Qualified Code(s): K40.20 - Bilateral inguinal hernia, without obstruction or gangrene, not specified as recurrent Comment: - CT imaging demonstrates right and left inguinal hernias and a 3 cm umbilical hernia with diastasis recti. - Discussed surgical repair options, including minimally invasive robotic repairof bilateral inguinal hernias with mesh placement, and optional concurrent umbilical hernia repair. - Reviewed risks (infection, mesh complications, nerve injury, recurrence), benefits (single recovery period, reduced risk of bowel incarceration/obstruction), and alternatives; patient and spouse verbalized understanding. - Advised 5-week restriction on lifting >10 lbs postoperatively; emphasized importance of early ambulation to reduce DVT risk. - Advised aggressive management of constipation and avoidance of straining postoperatively. - Nasal swab for Staphylococcus aureus colonization to be performed today; if positive, will treat with mupirocin ointment and Hibiclens wash for 5 days preoperatively. - EKG to be completed prior to surgery. - Preoperative risk assessment with Dr. Erickson on March 11. - Surgery to be scheduled for late March or early April. (2) Umbilical hernia without obstruction and without gangrene: Status: Acute Orders: Orders MRSA/SAID SCREEN (PRE SURG) Today K40.90 - Unilateral inguinal hernia, without obstruction or gangrene, not specified as recurrent Plan Details Additional Comments: Note was completed with the assistance of AI technology and ambient listening. Patient provided their consent for use of this technology during the duration oftheir visit. Provider has reviewed dictation prior to incorporation within the electronic medical record. Coding Level of Care Code Off vis,est,level 4 Diagnoses Non-recurrent bilateral inguinal hernia without obstruction or gangrene K40.20 Recurrence: non-recurrent Umbilical hernia without obstruction and without gangrene K42.9 Clinical Quality Measures Falls Risk Screening/Assistive Devices Have you fallen in the past year?: No 02/11/25 5080 <Electronically signed by Ketan Parry MD> Date _ Ketan Parry MD Cosignbimal Signature: Date (if applicable) CC: Dr. Guilherme Erickson MD ~ [facility] Work Phone: Reason for referral (narrative)No reason for referral information availableNovato [facility] Hospital Work Phone: Summary Purpose Family History No Family History Records FoundNo Family History Records FoundNo Family History Records FoundNo Family History Records FoundNo Family History Records Found Advance Directives No Advanced Directives Records Found Advance Directive Response Recorded Date/ Time Do you have a Healthcare Power of Research Center Director? No November 27, 2024 3:40pm Advance Directive Response Recorded Date/ Time Do you have a Healthcare Power of Research Center Director? No November 28, 2024 12:01am Chief Complaint and Reason for Visit Chief [...] Acute appendicitis November 27, 2024 6:39 pm Chief Complaint Admit Date CONCERN FOR SHINGLES November 11, 2024 10: 25am APPENDICITIS November 27, 2024 7:08 pm PERFORATED APPENDICITIS November 28, 2024 8:49am PERFORATED APPENDICITIS November 28, 2024 11:37am PERFORATED APPENDICITIS November 29, 2024 6:39am PERFORATED APPENDICITIS November 30, 2024 9:42am Reason for Visit Admit Date Contact dermatitis November 11, 2024 10:2 5am Acute appendicitis November 28, 2024 11:3 7am Chief Complaint Admit Date CONCERN FOR SHINGLES November 11, 2024 10: 25am APPENDICITIS November 27, 2024 7:08 pm PERFORATED APPENDICITIS November 28, 2024 8:49am PERFORATED APPENDICITIS November 28, 2024 11:37am PERFORATED APPENDICITIS November 29, 2024 6:39am PERFORATED APPENDICITIS November 30, 2024 9:42am Appendectomy December 10, 2024 10 :14am Chief Complaint Admit Date CONCERN FOR SHINGLES November 11, 2024 10: 25am APPENDICITIS November 27, 2024 7:08 pm PERFORATED APPENDICITIS November 28, 2024 8:49am PERFORATED APPENDICITIS November 28, 2024 11:37am PERFORATED APPENDICITIS November 29, 2024 6:39am PERFORATED APPENDICITIS November 30, 2024 9:42am Appendectomy December 10, 2024 10 :14am DISCUSS INGUINAL HERNIA February 11 8:33am Reason for Visit Admit Date Contact dermatitis November 11, 2024 10:2 5am Acute appendicitis November 28, 2024 11:3 7am S/P appendectomy December 10, 2024 10 :14am Bilateral inguinal hernia without obstru ction or gangrene February 11, 2025 8:33am Umbilical hernia without obstruction and without gangrene February 11, 2025 8:33am Additional Source Comments (unrecognized sect ion and content) No Status Records FoundNo Status Records FoundNo Status Records FoundNo Status Records FoundNo Status Records Found INFORMATION SOURCE (unrecogn ized section and content) DATE CREATED AUTHOR 04/09/2018 [facility] DATE CREATED AUTHOR AUTHOR'S ORGANIZ ATION 04/09/2018 [facility] DATE CREATED AUTHOR AUTHOR'S ORGANIZ ATION 02/08/2020 [facility] DATE CREATED AUTHOR AUTHOR'S ORGANIZ ATION 07/28/2020 [facility] DATE CREATED AUTHOR AUTHOR'S ORGANIZ ATION 02/27/2025 [facility] Goals (unrecognized section and content) Goals may [...] Provider Active Sta rt: November 27, 2024 Team Status: Active Member [...] Provider Active Sta rt: November 27, 2024 Team Status: Active Member Role/Relationship Status Dates Dr. Guilherme Erickson MD Primary Care Provider Active Start: November 28, 2024 Dr. Kal Mcdonald DO Emergency Provider Active Start: November 28, 2024 Dr. Ketan Parry MD Admit Provider Active Sta rt: November 28, 2024 Dr. Ketan Parry MD Other Provider Active Sta rt: November 28, 2024 Shawnee LINDSAY PA-C Attending Provider Active Start: November 28, 2024 Team Status: Inactive Member Role/Relationship Status Dates Dr. Guilherme Erickson MD Primary Care Provider Active Start: November 28, 2024 End: November 30, 2024 Dr. Kal Mcdonald DO Emergency Provider Active Start: November 28, 2024 End: November 30, 2024 Dr. Ketan Parry MD Admit Provider Active Sta rt: November 28, 2024 End: November 30, 2024 Dr. Ketan Parry MD Attending Provider Active Start: November 28, 2024 End: November 30, 2024 Team Status: Active Member Role/Relationship Status Dates Dr. Guilherme Erickson MD Primary Care Provider Active Start: November 29, 2024 Dr. Kal Mcdonald DO Emergency Provider Active Start: November 29, 2024 Dr. Ketan Parry MD Admit Provider Active Sta rt: November 29, 2024 Dr. Ketan Parry MD Other Provider Active Sta rt: November 29, 2024 Shawnee LINDSAY PA-C Attending Provider Active Start: November 29, 2024 Team Status: Active Member Role/Relationship Status Dates Dr. Guilherme Erickson MD Primary Care Provider Active Start: November 30, 2024 Dr. Kal Mcdonald DO Emergency Provider Active Start: November 30, 2024 Dr. Ketan Parry MD Admit Provider Active Sta rt: November 30, 2024 Dr. Ketan Parry MD Attending Provider Active Start: November 30, 2024 Dr. Ketan Parry MD Other Provider Active Sta rt: November 30, 2024 Team Status: Inactive Member Role/Relationship Status Dates Dr. Guilherme Erickson MD Primary Care Provider Active Start: December 10, 2024 End: December 10, 2024 Dr. Guilherme Erickson MD Referring Provider Active St art: December 10, 2024 End: December 10, 2024 Shawnee LINDSAY PA-C Attending Provider Active Start: December 10, 2024 End: December 10, 2024 Team Status: Active Member Role/Relationship Status Dates Dr. Guilherme Erickson MD Primary care physician Active Team Status: Inactive Member Role/Relationship Status Dates Dr. Guilherme Erickson MD Primary care physician Active Start: November 08, 2024 End: November 08, 2024 Dr. Guilherme Erickson MD Attending physician Active S tart: November 08, 2024 End: November 08, 2024 Dr. Guilherme Erickson MD Referring Provider Active St art: November 08, 2024 End: November 08, 2024 Team Status: Inactive Member Role/Relationship Status Dates Dr. Guilherme Erickson MD Primary care physician Active Start: November 11, 2024 End: November 11, 2024 Dr. Guilherme Erickson MD Referring Provider Active St art: November 11, 2024 End: November 11, 2024 Tabatha LINDSAY PA Attending physician Active Start: November 11, 2024 End: November 11, 2024 Team Status: Active Member Role/Relationship Status Dates Dr. Guilherme Erickson MD Primary care physician Active Start: November 27, 2024 Dr. Kal Mcdonald DO Emergency Department Physician A ctive Start: November 27, 2024 Dr. Ketan Parry MD Admitting physician Active Start: November 27, 2024 Dr. Ketan Parry MD Attending physician Active Start: November 27, 2024 Dr. Ketan Parry MD Nurse Practitioner Active Start: November 27, 2024 Team Status: Active Member Role/Relationship Status Dates Dr. Guilherme Erickson MD Primary care physician Active Start: November 28, 2024 Dr. Kal Mcdonald DO Emergency Department Physician A ctive Start: November 28, 2024 Dr. Ketan Parry MD Admitting physician Active Start: November 28, 2024 Dr. Ketan Parry MD Nurse Practitioner Active Start: November 28, 2024 Shawnee LINDSAY PA-C Attending physician Active Start: November 28, 2024 Team Status: Inactive Member Role/Relationship Status Dates Dr. Guilherme Erickson MD Primary care physician Active Start: November 28, 2024 End: November 30, 2024 Dr. Kal Mcdonald DO Emergency Department Physician A ctive Start: November 28, 2024 End: November 30, 2024 Dr. Ketan Parry MD Admitting physician Active Start: November 28, 2024 End: November 30, 2024 Dr. Ketan Parry MD Attending physician Active Start: November 28, 2024 End: November 30, 2024 Team Status: Active Member Role/Relationship Status Dates Dr. Guilherme Erickson MD Primary care physician Active Start: November 29, 2024 Dr. Kal Mcdonald DO Emergency Department Physician A ctive Start: November 29, 2024 Dr. Ketan Parry MD Admitting physician Active Start: November 29, 2024 Dr. Ketan Parry MD Nurse Practitioner Active Start: November 29, 2024 Shawnee LINDSAY PA-C Attending physician Active Start: November 29, 2024 Team Status: Active Member Role/Relationship Status Dates Dr. Guilherme Erickson MD Primary care physician Active Start: November 30, 2024 Dr. Kal Mcdonald DO Emergency Department Physician A ctive Start: November 30, 2024 Dr. Ketan Parry MD Admitting physician Active Start: November 30, 2024 Dr. Ketan Parry MD Attending physician Active Start: November 30, 2024 Dr. Ketan Parry MD Nurse Practitioner Active Start: November 30, 2024 Team Status: Inactive Member Role/Relationship Status Dates Dr. Guilherme Erickson MD Primary care physician Active Start: December 10, 2024 End: December 10, 2024 Dr. Guilherme Erickson MD Referring Provider Active St art: December 10, 2024 End: December 10, 2024 Shawnee LINDSAY PA-C Attending physician Active Start: December 10, 2024 End: December 10, 2024 Team Status: Inactive Member Role/Relationship Status Dates Dr. Guilherme Erickson MD Primary care physician Active Start: February 11, 2025 End: February 11, 2025 Dr. Guilherme Erickson MD Referring Provider Active St art: February 11, 2025 End: February 11, 2025 Dr. Ketan Parry MD Attending physician Active Start: February 11, 2025 End: February 11, 2025 Team Status: Active Member Role/Relationship Status Dates Dr. Guilherme Erickson MD Primary care physician Active Start: February 11, 2025 Dr. Ketan Parry MD Attending physician Active Start: February 11, 2025 Dr. Ketan Parry MD Referring Provider Active Start: February 11, 2025 FOR RECORDS PERTAINING TO PATIENTS WHO ARE [...] BE BASED ON THE PRIMARY CLINICAL RECORDS. [facility] [employer] provides no warranty or guarantee of the accuracy or completeness of information in this document.
[2025-04-04] MEDS: Lactated Ringers 1,000 ML 15 ML IV ×2 (06:52→14:32)
--- NOTE | 2025-04-04 06:58 | HP.PCM_ITS ---
History and Physical Date of Admission: 04/04/25 Date of Service: 02/11/25 MR#: [id number] Acct: [id number] Name: DONELL HERRMANN Rep #: [id number] : 1950 Provider: Dr. Ketan Parry MD Age/Sex: 74/M Location: [facility] Status: Signed Intake Vital Signs 11/28/2499:01 02/12/2508:50 Height 5 ft 4 in 5 ft 4 in Weight: 195 lb 4 oz BMI 33.5 BP 150/77 H Blood Pressure Location Rt brachial Position Sitting Respiration 18 Pulse 72 Pulse Source Monitor Temp 97.9 F Temp Source Temporal Pulse Oximetry (%) 97 Oxygen Delivery Method room air Intake Visit Reasons: DISCUSS INGUINAL HERNIA Chief Complaint: discuss inguinal hernia Accompanied by: Is patient in pain?: No Allergies pneumococcal vaccine (From Pneumovax-23) Adverse Reaction (Verified 02/11/25 08:51) rash on arms Medications ?Medication ?Instructions ?Recorded ?Confirmed ?Type losartan 100 mg tablet 100 mg PO DAILY 04/06/17 02/11/25 Histor y red yeast rice 600 mg capsule 600 mg PO DAILY 04/06/17 02/11/25 Histor y chlorthalidone 25 mg tablet 12.5 mg PO DAILY 08/27/21 02/11/25 Histo ry cholecalciferol (vitamin D3) 50 50 mcg PO DAILY 08/27/21 02/11/25 Histor y mcg (2,000 unit) capsule niacin 500 mg tablet 500 mg PO QODAY 08/27/21 02/11/25 Histor y levothyroxine 25 mcg tablet 25 mcg PO DAILY 11/27/24 02/11/25 Histor y omeprazole 20 mg tablet,delayed 20 mg PO DAILY 11/28/24 02/11/25 History release Have you fallen in the past year?: No PFSH Medical History (Updated 02/11/25 @ 15:[address] Ketan Parry MD) Right inguinal hernia Non-smoker Hernia GERD (gastroesophageal reflux disease) Hypothyroidism HTN (hypertension) Surgical History (Updated 02/11/25 @ 08:50 by Jennifer Easton LPN) S/P appendectomy Social History Smoking Status: Never smoker alcohol intake: never substance use type: does not use HPI HPI HPI: The patient is a 74-year-old male known to me for a history of perforated appendicitis that underwent operation 11/28/2024. He is presenting for follow-up regarding multiple hernias identified during a prior appendicitis workup. He is accompanied by his . The patient reports occasional mild discomfort in the right groin, describing it as a brief, pulling sensation that resolves spontaneously and occurs infrequently. He denies left-sided groin discomfort and denies any bothersome symptoms from the umbilical region. He maintains regular bowel habits with daily Metamucil use, though he notes a tendency toward constipation if he discontinues it. 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 He denies any history of staph or skin infections, stating that his only prior hospitalizations were for appendicitis and cataract surgery. 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 ROS General General: No weight change, appetite, fatigue, colon cancer, breast cancer or weakness HEENT HEENT: Yes eye injury; No difficulty swallowing, eye surgery, swollen glands or hoarseness Endo Endocrine: Yes thyroid disease; No diabetes mellitus, thyroid cancer, Hair loss, heat intolerance or cold intolerance Skin Skin: No rash or changing moles Musc Musculoskeletal: Yes arthritis; No back problems, rheumatoid arthritis, gout or joint pain Cardio Cardiovascular: Yes high blood pressure; No murmur, pacemaker, heart disease, atrial fibrillation, heart attack, heart stent, palpitations, shortness of breath with exertion or chest pain Psych Psychiatric: No depression, anxiety or hearing voices Resp Respiratory: No shortness of breath, No sleep apnea, No cough, No COPD, No asthma, No emphysema and No wheezing Gastro Gastrointestinal: No abdominal pain, No nausea or vomiting, No diarrhea, No constipation, No blood in stool, Yes acid reflux, No hemorrhoids, No ulcers, No gallbladder problem and No black,tarry stools Abdullahi Hematologic: No blood thinners, No blood disorders, No bleeding, No anemia and No blood clots Neuro Neurologic: No numbness, No tingling and No weakness Exam Const General: cooperative Nutritional Appearance: obese Orientation: alert and oriented x3 Resp Effort & Inspection: normal respiratory effort GI Other: Umbilical hernia with partially incarcerated fatty tissue. Patient has no tenderness with palpation. Fascial defect estimated about 2-1/2 cm. Other: Bilateral descended testes with left epididymal cyst? Bilateral indirect inguinal hernia defects. Assessment and Plan Assessment and Plan (1) Bilateral inguinal hernia without obstruction or gangrene: Status: Acute Qualifiers: Recurrence: non-recurrent Qualified Code(s): K40.20 - Bilateral inguinal hernia, without obstruction or gangrene, not specified as recurrent Comment: - CT imaging demonstrates right and left inguinal hernias and a 3 cm umbilical hernia with diastasis recti. - Discussed surgical repair options, including minimally invasive robotic repair of bilateral inguinal hernias with mesh placement, and optional concurrent umbilical hernia repair. - Reviewed risks (infection, mesh complications, nerve injury, recurrence), benefits (single recovery period, reduced risk of bowel incarceration/obstruction), and alternatives; patient and spouse verbalized understanding. - Advised 5-week restriction on lifting >10 lbs postoperatively; emphasized importance of early ambulation to reduce DVT risk. - Advised aggressive management of constipation and avoidance of straining postoperatively. - Nasal swab for Staphylococcus aureus colonization to be performed today; if positive, will treat with mupirocin ointment and Hibiclens wash for 5 days preoperatively. - EKG to be completed prior to surgery. - Preoperative risk assessment with Dr. Erickson on March 11. - Surgery to be scheduled for late March or early April. (2) Umbilical hernia without obstruction and without gangrene: Status: Acute I have examined the patient the following changes are noted: Patient presents today having already requested that we forego doing the umbilical hernia repair during today's session. He initially states he is also inclined to consider not doing the left side as it is minimally symptomatic. He was under the impression, however, that this meant fewer incisions. After notifying him that this was not the case and that his overall operative time would likely be less for a bilateral upfront than sequential unilateral repairs he decides to proceed as planned with a bilateral inguinal hernia repair. Procedure details and postprocedure activity restrictions were reviewed in detail. All questions were answered from him and his . Consents were confirmed. His abdominal exam is now benign. Will proceed to the operating room for robot-assisted bilateral inguinal hernia repair as planned.
--- NOTE | 2025-04-04 07:03 | PCM.PRE.AN2 ---
ASA Classification* ASA Classification ASA Classification: 2 Assessment & Plan Anesthesia* Anesthesia Assessment Anesthesia Assessment: Discussed sedation and/or anesthesia options, risks, benefits, and alternatives with patient/parents/legal guardian/POA. Questions invited. The patient/parents/legal guardian/POA seems to understand and agrees to proceed with anesthesia plan. Reviewed the physical assessment, medical history, allergy history and patient home medications list prior to surgery/procedure/anesthetic and documented any changes. Performed airway and anesthesia risk assessments. Anesthesia Type Anesthesia Type: General History Source History Obtained from:: Patient and Chart Anesthesia Focused Assessment* Temperature: 98.4 F Pulse Rate: 84 Blood Pressure: 136/83 Respiratory Rate: 16 Pulse Ox: 100 Oxygen Delivery Method: Room Air Airway Assessment Mouth opens: >3 cm Mallampati Score: I Teeth Condition: Intact Neck Range of motion (ROM): Full ROM Labs Anesthesia Preop lab: CBC WBC, (4.4-11.0) 10.0 K/mm3 11/30/24, 05:23 RBC, (4.6-6.2) 3.93 M/mm3 L 11/30/24, 05:23 Hgb, (13.0-16.5) 12.3 g/dL L 11/30/24, 05:23 Hct, (40-54) 37.7 % L 11/30/24, 05:23 Plt Count, (150-450) 241 K/mm3 11/30/24, 05:23 CHEMISTRY Potassium, (3.3-5.1) 4.8 mmol/L 03/27/25, 09:06 Sodium, (133-145) 138 mmol/L 03/27/25, 09:06 BUN, (4-19) 30 mg/dL H 03/27/25, 09:06 Creatinine, (0.70-1.20) 1.48 mg/dL H 03/27/25, 09:06 Glucose, (70-99) 102 mg/dL H 03/27/25, 09:06 TSH, (0.300-4.200) 4.180 uIU/mL 03/27/25, 09:06 COAG PT, (11.7-14.9) 14.1 SECONDS 11/27/24, 15:40 Pre-Assessment Diagnosis/Proposed Procedure Planned Operative Procedure(s): (B) Lap Robotic Inguinal Hernia w/mesh & robotic umbilical hernia w/mesh Anesthesia History 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 When Was Last Pacemaker Check QUESTION #4 FULL TEXT: You/Your Family Experience fever (hyperthermia) with Anesthesia Last Oral Intake Last Oral intake: Last Oral Intake NPO since 04:30 04/04/25 06:48 Meds taken in AM with sips of Yes 04/04/25 06:48 water? 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 Female No 03/21/25 09:05 HX of Motion Sickness No 03/21/25 09:05 HX of N/V After Surgery No 03/21/25 09:05 Non-Smoker Yes 03/21/25 09:05 Duration of Surgery greater Yes 03/21/25 09:05 than 60 minutes Number of Risk Factors 2 03/21/25 09:05 PONV Score Moderate Risk 03/21/25 09:05 Height & Weight Height & Weight: Anesthesia: Height & Weight Height 5 ft 4 in 04/04/25 06:48 Weight: 87.8 kg 04/04/25 06:48 Body Mass Index (BMI) 33.2 04/04/25 06:48 Respiratory Assessment Respiratory Assessment - airframe and powerplant technician: Respiratory Tract Infection Hx - airframe and powerplant technician Hx Respiratory Tract Infection No 03/21/25 09:05 STOP Sleep Apnea STOP Sleep Apnea - airframe and powerplant technician: STOP Sleep Apnea - airframe and powerplant technician Hx Hypertension Yes: on meds 03/21/25 09:05 Hx Sleep Apnea No 03/21/25 09:05 CPAP BIPAP Do you snore loudly (louder Yes 03/21/25 09:05 than talking or can be heard Do you often feel tired/ No 03/21/25 09:05 fatigued/ sleepy during daytime? Has anyone observed you stop No 03/21/25 09:05 breathing during sleep? STOP Results Positive 03/21/25 09:05 QUESTION #5 FULL TEXT : Do you snore loudly (louder than talking or can be heard through closed doors)? 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 Specify any problems Hx of Preganancy in last 3 N/A 03/21/25 09:05 Months Nurse Filling Out Transfusion JZOLLINGE 03/21/25 09:05 & Questions: Date: 03/21/25 03/21/25 09:05 Time: 09:07 03/21/25 09:05 Patient unable to answer at this time (ie. confused, unrespo /Reproduction History /Reproductive History - airframe and powerplant technician: /Reproductive Hx- airframe and powerplant technician Hx Now No 03/21/25 09:05 Gestational Age (in weeks): EDC: Hx Hx Para Hx Section SAB No 03/21/25 09:05 Does the father of the baby or his family experience fever w Father of the baby Malignant Hypertension history comment Active Medications Active Medications: Current Medications Generic Name Dose Route Start Last Admin Trade Name Freq PRN Reason Stop Dose Admin Cefazolin Sodium 2 gm/ Sodium 110 mls @ 200 mls/hr 04/04/25 07:00 Chloride IV 04/04/25 07:32 INTRAOP ONE Lactated Ringer's 1,000 mls @ 15 mls/hr 04/04/25 06:15 04/04/25 06:52 IV 15 mls/hr .Q48H [place] Administration PFSH Medical History (Updated 03/21/25 @ 09:04 by Julia Metcalf) Thyroid disease Arthritis Heartburn Right inguinal hernia Non-smoker Hernia GERD (gastroesophageal reflux disease) Hypothyroidism HTN (hypertension) Home Medications ?Medication ?Instructions ?Recorded ?Last Taken ?Type losartan 100 mg tablet 100 mg PO DAILY 04/06/17 04/04/25 History red yeast rice 600 mg capsule 600 mg PO DAILY 04/06/17 04/03/25 History cholecalciferol (vitamin D3) 50 50 mcg PO DAILY 08/27/21 04/03/25 History mcg (2,000 unit) capsule niacin 500 mg tablet 500 mg PO QODAY 08/27/21 04/03/25 History levothyroxine 25 mcg tablet 25 mcg PO DAILY 11/27/24 04/04/25 History omeprazole 20 mg tablet,delayed 20 mg PO DAILY PRN heartburn 11/28/24 Unknown History release super beets 1 gummy PO .qd 03/21/25 04/03/25 History Allergy/AdvReac Type Severity Reaction Status Date / Time pneumococcal vaccine (From AdvReac rash on Verified 03/21/25 08:53 Pneumovax-23) arms Surgical History (Updated 03/21/25 @ 09:04 by Julia Metcalf) Hx of colonoscopy with polypectomy S/P appendectomy Social History Smoking Status: Never smoker alcohol intake: never substance use type: does not use Review of Systems (Anesthesia) ROS Narrative System reviewed and no additional complaints, except as documented.
--- NOTE | 2025-04-04 07:30 | HERN_PTH ---
PATIENT: DONELL HERRMANN LOC: [facility] [place] U#:[id number] AGE/SX: 74/M ROOM: RE04/04/[address]: Dr. Ketan Parry MD : 1950 BED: DIS: 04/04/2025 SPEC #: [id number] RECD: 04/04/25 14:20 STATUS: ANDREW REKelly #: [id number] PILAR: 04/04/25 07:[address]: Ketan Parry DEPT: SURGICAL PATHOLOGY RECD BY: Deandre Puentes ENTERED: 04/05/25 11:30 SP TYPE: Hernia OTHR DR: Dr. Guilherme Erickson MD Tissues: HERNIA Procedures: Surgery Specimen Level III HEADER OPERATION: Laparoscopic robotic inguinal hernia with mesh PRE-OP DIAGNOSIS: Bilateral inguinal hernia without obstruction or gangrene TISSUE SUBMITTED: A- Left cord lipoma MICROSCOPIC DIAGNOSIS A. Soft tissue, left cord, lipoma, excision: - Mature adipose consistent with lipoma. MICROSCOPIC DESCRIPTION Slides are reviewed. GROSS DESCRIPTION A. Received in formalin labeled with the patient's name and date of . Designated as left cord lipoma is an 8.4 x 5.2 x 1.7 cm willard-yellow lobulated somewhat congested portion of soft tissue. Sectioning reveals lobulated, homogenous cut surfaces. Ocular Care Aide sections are submitted in 2 cassettes. LA 04/05/2025 CPT:12486
[2025-04-04] MEDS: Lidocaine 1% (5 ml sdv) 5 ML Vial 10 ML IV (07:35)
[2025-04-04] MEDS: Bupiv/Epi 0.25% 30 ML Vial (08:01)
[2025-04-04] MEDS: fentaNYL 100 MCG/2 ML Ampul 200 MCG IV (11:00)
[2025-04-04] MEDS: Cefazolin 1 GM/5 ML Vial 4 GM IV (11:28)
--- NOTE | 2025-04-04 13:03 | OP.PCM_ITS ---
Operative Report (Standard) Operative Information Date of Procedure: 04/04/25 Pre-Operative Diagnosis: Bilateral inguinal hernias Post-Operative Diagnosis: 1. Right combined direct and indirect inguinal hernias with right direct containing portion of bladder 2. Left indirect inguinal hernia and cord lipoma Surgery/Procedure Performed: Robot-assisted bilateral inguinal hernia repair with mesh director of category management: Yes Recreation Technician: James Lopez Tasks completed by histology assistant: Opening & closing and Trocar (Trocar insertion) Type of Anesthesia: General/Supplemental RN Documented Start/Stop Times: Operation Date: 04/04/25 07:30 Case Time Into Pre-Op 04/04/25 06:04 Out of Pre-Op 04/04/25 07:24 Anesthesia Start 04/04/25 07:28 Into Room 04/04/25 07:28 Procedure Start 04/04/25 08:01 Procedure End 04/04/25 13:15 Anesthesia End 04/04/25 13:27 Out of Room 04/04/25 13:27 Into Recovery 04/04/25 13:28 Into Phase II Recovery 04/04/25 14:33 Out of Recovery 04/04/25 14:33 Out of Phase II 04/04/25 16:55 Procedure Start Time: 08:01 Procedure Stop Time: 13:15 Select all DRAINS/GRAFTS/IMPLANTS that apply: None and Implanted device (Right 3D max mesh, left 3D max mid anatomic mesh) Implanted device details: Right reference [id number], Lot [id number] left reference [id number], Lot [id number] Estimated Blood Loss: 25 Specimen collected: Yes Description of specimen(s) removed: Left cord lipoma Description of surgery: After appropriate identification the preoperative holding area the patient was brought to the operating room where he was positioned supine on the operating table. Preoperative antibiotics were completed and the patient was administered a general anesthetic. Patient's abdomen was then prepped and draped in usual sterile fashion. Formal timeout followed to confirm patient and procedure. Procedure was begun with an optical entry facilitated by Veress insufflation at Oneil's point. Once pneumoperitoneum reached a set point pressure of 12 mmHg a left paramedian incision was made and a 8 mm robotic trocar was placed with a careful Optiview technique. Follow-up laparoscopic investigation revealed no inadvertent injury to the viscera below. A second port was placed a hand's breath right of this index port under laparoscopic visualization. Then the Veress needle was withdrawn and a third and final robotic port was placed through this site. Patient was positioned in slight Trendelenburg and I performed a local block of the ilioinguinal nerves bilaterally using 12 mL local anesthetic under laparoscopic visualization. The robot was docked in standard fashion. In this positioning I could visualize a plug through the peritoneum on the right side within what appeared to be a persistent direct abdominal wall defect. There also appeared to be a depression of the peritoneum, however, this was visualized medial to the medial umbilical ligament. Robotically, a peritoneal flap was created on the right extending from the medial umbilical ligament to the level of the ASIS (external) and was bluntly dissected to expose the medial parietal compartment and lateral visceral compartments. In order to facilitate complete exposure of the direct hernia space this required partial division of patient's existing mesh and tenacious adhesions anterior to this mesh with rather painstaking effort to both divide this tissue/material and avoid injury to the overlying abdominal wall as well as the critical structures vicinity. Medially I could visualize the pubic tubercle and developed the space of Retzius which allowed me to extrapolate laterally through the mesh in a favorable plane. Unfortunately the existing mesh had attenuated the peritoneum and this resulted in a rather unavoidable rent in the peritoneum. Given the large size of this rent and the need for improved exposure I chose to bisect the peritoneum deliberately in this location. The I extended the dissection down to the level of the psoas muscle. Once I had completely dissected inferiorly beyond the mesh I was able to more fully visualize the patient's direct hernia defect and identified some retroperitoneal fat herniating through the defect inferior to the mesh. This fat was placed on traction and through careful blunt dissection with selective energy I was able to reduce the fat back into the peritoneum. There was no evidence of an indirect hernia and I was able to clearly visualize the inverted V days by the splaying of the vas deferens medially and the spermatic vessels laterally. Just lateral to the spermatic vessels I did identify a small cord lipoma which I reduced and dissected off the spermatic cord. The peritoneal flap was inspected to ensure that cord was appropriately parietalized and there was no pulling of the cord structures or the viscera deeply over the psoas using the pull test. Then attention was turned to the patient's left side where there was evidence of dimpling of the peritoneum medial to the medial umbilical ligament. While this visually did not constitute a hernia it was abnormal and patient had previously complained of a bulge primarily with this laterality in mind. Therefore, again, a peritoneal flap was created on this side and dissection was carried down in similar fashion to Rao's ligament medially and laterally over the psoas at the same depth. Here there was and no obvious hernia defect. However, lateral to the spermatic cord I did identify a large cord lipoma which was reduced and dissected off the cord with a combination of blunt dissection and selective energy usage. Because this cord lipoma appeared partially devascularized and at risk for altering the confirmation of her ventral mesh I elected to amputate it proximal to the internal ring after first applying bipolar energy to try to better ensure hemostasis. Again, I performed the pull test to ensure that there is no tenting of structures that may compromise the future mesh lie. Once satisfied, a Bard 3D max, size large, mid weight mesh was placed into the abdomen along with suture. It was positioned within the right preperitoneal pocket so that there was good medial and inferior overlap. It was then tacked to the admoniculum of the linea alba just superior to the pubic tubercle and laterally in a partial- thickness bite of the abdominal wall using a 3-0 Vicryl suture (above an imaginary line between the ASIS promontories). The peritoneal flap was then closed with a running 3-0 V-Loc suture taking care to conceal the barbs of the suture beneath the peritoneum. The patient's previous mesh was left adherent to the peritoneum and this was tucked behind the right medial umbilical ligament during closure to prevent exposure to the small bowel. There was a single wayne toneal rent which was closed with an interrupted Vicryl suture. I then transitioned to the left side and obtained a second large, mid weight Bard 3D max mesh. This mesh was positioned into the preperitoneal space and tacked in similar fashion as was done on the right side using 3-0 Vicryl. The peritoneal flap was then closed with a new 3 oh V-Loc suture in a running fashion and locked by running back on itself. No perineal defects persisted after this flap closure. Sutures were systematically removed from the peritoneum as well as a placed Ray-Ta. Lastly, the patient's left cord lipoma was delivered from the peritoneum in a specimen bag. I then made brief inspection of the peritoneum as discussed with patient preoperatively to see if there would be any evidence from this vantage point of his CT imaging concerns for possible small bowel narrowing. In the right lower quadrant I did identify a isolated segment of ileum that appeared to be strictured but not posing an obstruction. I confirmed this was well away from the area of the patient's appendix by following the tinea coli of the right colon and documented this finding with several pictures from the robotic camera. With this inspection complete, the pneumoperitoneum was evacuated before removing the trocars. The port sites were closed at the skin with running 4-0 Monocryl in a subcuticular fashion. Steri-Strips and OpSite's were used as dressings. Patient's testicles were confirmed within the scrotum. Patient was then awoken from anesthetic and transferred to PACU for ongoing recovery. After appropriate identification the preoperative holding area the patient was brought to the operating room where he was positioned supine on the operating table. Preoperative antibiotics were completed and the patient was administered a general anesthetic. Patient's abdomen was then prepped and draped in usual sterile fashion. Formal timeout followed to confirm patient and procedure. Procedure was begun with an optical entry facilitated by Veress insufflation at Oneil's point. Once pneumoperitoneum reached a set point pressure of 12 mmHg a right paramedian incision was made and a 8 mm robotic trocar was placed with a careful Optiview technique. Follow-up laparoscopic investigation revealed numerous adhesions to the anterior abdominal wall and visibility was restricted. Thus, the Veress needle was withdrawn and a robotic port was placed through this site. With these ports in place, patient was positioned in slight Trendelenburg and I began carefully taking down the omentum from the anterior abdominal wall. Readily became apparent that the majority of these adhesions were to the patient's previously-placed umbilical mesh which appeared to be in proper position with a flat lie. There did not appear to be any adhesions between the bowel and the anterior abdominal wall. However, when the patient was placed in further steeper Trendelenburg positioning I still was unable to visualize the internal rings therefore I placed the remaining robotic port in the right upper quadrant under laparoscopic visualization and the robot was docked in standard fashion. The robot console I spent time performing additional adhesiolysis between the patient's small bowel, omentum, and the anterior abdominal wall-in the location of patient's prior open appendectomy scar and then on the left side between the patient's sigmoid colon it anterior abdominal wall through the use of sharp scissors dissection and some limited cautery effect. In this positioning I could visualize a definite indirect inguinal hernia on the left but the bowel remained partially obstructing to the view so I requested my quality control assistant undocked the robot and anesthesia placed patient into steeper Trendelenburg positioning. This allowed some retraction of the bowel from the pelvis and under robotic guidance my quality control assistant performed a local block of the ilioinguinal nerves bilaterally. Unfortunately with closer inspection I discovered that had caused unavoidable rents in the peritoneum with my adhesiolysis process. Robotically, a peritoneal flap was created on the right extending from the medial umbilical ligament to the level of the ASIS (external) and was bluntly dissected to expose the medial parietal compartment and lateral visceral compartments. Medially I could visualize the pubic tubercle and developed the space of Retzius which allowed me to extrapolate laterally in a favorable plane. There did not appear to be a indirect hernia sac nor any signs of significant cord lipoma, however, medially I did find a fat plug within a small direct defect which was removed. Then I extended the dissection down to the level of the psoas muscle and the visceral compartment. I was able to clearly visualize the inverted V by the splaying of the vas deferens medially and the spermatic vessels laterally. Just lateral to the spermatic vessels I did identify a small cord lipoma which I reduced and dissected off the spermatic cord, but generally I found the spermatic cord itself to be somewhat fatty. The peritoneal flap was inspected to ensure that cord was appropriately parietalized and there was no pulling of the cord structures or the viscera deeply over the psoas using the pull test. Attention was turned to the patient's left side where, again, a peritoneal flap was created and dissection was carried down in similar fashion to the space of Retzius medially and laterally over the psoas at the same depth. Here there was no obvious hernia defect but there was a significant amount of preperitoneal fat versus a fatty lymph node overlying the direct space. I attempted to place posterior traction on the structure to determine if I could establish an areolar plane anteriorly and thereby create a more optimal mesh groove. With this maneuver I was able to clearly establish the medial aspect of the femoral vein but the structure in which I placed traction began to do slightly and did not appear to be easily displaced. Therefore I moved more laterally to dissection of the patient's indirect inguinal hernia and placed traction on the hernia sac while sweeping away and using select electrocautery to relieve attachments to the hernia sac until it was fully reduced back to the level of the rest of the peritoneum. Lateral to the spermatic cord I did identify a large cord lipoma which was reduced and dissected off the cord with a combination of blunt dissection and selective energy usage. It was left intact within the preperitoneal pocket-remaining vascularized from its more proximal attachment. Again, I performed the pull test to ensure that there is no tenting of structures that may compromise the future mesh lie. There is some additional peritoneum directly overlying the cord structures and the vas which I dissected posteriorly. Once satisfied, 2 Bard 3D max, size large, mid weight meshes were placed into the abdomen along with suture. Each mesh was positioned within the respective preperitoneal pocket so that there was good medial and inferior overlap. The left mesh was then tacked to the admuniculum of the linea alba just superior to the pubic tubercle and laterally in a partial-thickness bite of the abdominal wall using a 3-0 Vicryl suture (above an imaginary line between the ASIS promontories). The right mesh was then tacked to Rao's ligament medially and laterally as it had been done on the left side. The peritoneal flap on the right was then closed with a running 3-0 V-Loc suture taking care to conceal the barbs of the suture beneath the peritoneum. I then transitioned to the left side and closed the flap with a new 3-0 V-Loc suture in a running fashion and locked by running back on itself. There was a single peritoneal rent on the right as well as the generalized attenuated status and this rent was closed with running 3-0 Vicryl suture. A small peritoneal rent was located in the upper inner aspect of the closure adjacent to the medial umbilical ligament and this was closed with a [id number] using a second 3-0 Vicryl suture. Lastly a larger rent adjacent to the sigmoid colon was closed with another running 3-0 Vicryl suture. With these closures no mesh was visible to the peritoneum. Sutures were systematically removed from the peritoneum. Pneumoperitoneum was evacuated and trocars were removed. The port sites were closed at the skin with running 4-0 Monocryl in a subcuticular fashion. Steri-Strips and OpSite's were used as dressings. Patient's testicles were confirmed within the scrotum. Patient was then awoken from anesthetic and transferred to PACU for ongoing recovery. Started here After appropriate identification the preoperative holding area the patient was brought to the operating room where he was positioned supine on the operating table. Preoperative antibiotics were completed and the patient was administered a general anesthetic. Patient's abdomen was then prepped and draped in usual sterile fashion. Formal timeout followed to confirm patient and procedure. Procedure was begun with an optical entry facilitated by Veress insufflation at Oneil's point. Once pneumoperitoneum reached a set point pressure of 15 mmHg the Veress needle was withdrawn and a optical trocar was introduced through the same site revealing no inadvertent injury to the viscera below from our needle insertion. Next, a right paramedian incision was made and a 8 mm robotic trocar was placed with laparoscopic visualization. A third port was placed a hand's breath left of this port. Patient was positioned Trendelenburg and I performed a local block of the ilioinguinal nerves bilaterally using 8 mL local anesthetic under laparoscopic visualization. The robot was docked in standard fashion. In this positioning I could visualize a sizable direct defect and possible indirect defect on the right, however, although the left an adhesion between the sigmoid colon and the pelvic sidewall prevented me from seeing the myopectineal orifice. Robotically, a peritoneal flap was created on the right extending from the medial umbilical ligament to the level of the ASIS (external) and was bluntly dissected to expose the medial parietal compartment and lateral visceral compartments. Medially I could visualize the latter entering a very large direct inguinal hernia defect. Great care was used to provide posterior t raction on the bladder as the anterior abdominal wall was swept anteriorly and gradually the bladder was fully extirpated from the hernia defect in a bloodless fashion. I then developed the space of Retzius further staying directly against the posterior rectus to minimize risk to the bladder. Laterally I dissected down to the level of the psoas musculature in the visceral compartment directly against the peritoneum. There was evidence of a smaller indirect hernia and this was fully reduced back from the structures of the spermatic cord until I was able to clearly visualize the inverted V by the splaying of the vas deferens medially and the spermatic vessels laterally. Just lateral to the spermatic vessels I did identify a small cord lipoma which I reduced and dissected off the spermatic cord. The peritoneal flap was inspected to ensure that cord was appropriately parietalized and there was no pulling of the cord structures or the viscera deeply over the psoas using the pull test. Then attention was turned to the patient's left side where there was evidence of an even larger direct inguinal hernia. The bowel within this hernia had been manually reduced prior to docking the robot. Once again a peritoneal flap was created on this side and dissection was carried down in similar fashion to Rao's ligament medially and laterally over the psoas at the same depth. Also once again I reduced patient's direct inguinal hernia sac with gentle traction and sweeping motions to keep the peritoneum intact. More laterally there were no signs of a indirect inguinal hernia defect. Again, I performed the pull test to ensure that there is no tenting of structures that may compromise the future mesh lie. Once satisfied, each direct defect was closed with a separate #1 STRATAFIX suture in a bidirectional fashion taking great care to avoid vascular injury to the inferior epigastric vessels as they were approached. Then 2 Bard 3D max, size large, mid weight meshes were placed into the abdomen along with suture. Each mesh was positioned within its respective preperitoneal pocket so that there was good medial and inferior overlap of the defects as well as the masses themselves, medially. The overlap of the meshes was tacked to the admuniculum of the linea alba just superior to the pubic tubercle and laterally in a partial-thickness bite of the abdominal wall using a 3-0 Vicryl suture. Each peritoneal flap was then closed with a running 3-0 V-Loc suture taking care to conceal the barbs of the suture beneath the peritoneum. With the formal portion of the operation complete the needles were sequentially removed from the peritoneal cavity and upon confirming a correct needle count, the pneumoperitoneum was evacuated before removing the trocars. The port sites were closed at the skin with running 4-0 Monocryl in a subcuticular fashion. Steri- Strips and OpSite's were used as dressings. Patient's testicles were confirmed within the scrotum. Patient was then awoken from anesthetic and transferred to PACU for ongoing recovery. Surgical Findings: ? Large segment of bladder and large direct type inguinal hernia ? Large right direct type inguinal hernia imbricated with running 3-0 Vicryl to close down transversalis fascia to Rao's ligament ? Testing of bladder with placement of Huitron catheter and instillation of methylene blue (negative). huitron removed prior to extubation ? Surety noted peritoneum on right with no available anatomical flap other than to tack epiploic of sigmoid colon to right pelvic brim peritoneum Complications Complications: No Admit VTE Documentation VTE Mechan Device Prophylaxis: SCD's
--- NOTE | 2025-04-04 13:03 | PCM.OPRPT ---
Operative Report (Standard) Operative Information Date of Procedure: 04/04/25 Pre-Operative Diagnosis: Bilateral inguinal hernias Post-Operative Diagnosis: 1. Right combined direct and indirect inguinal hernias with right direct containing portion of bladder 2. Left indirect inguinal hernia and cord lipoma Surgery/Procedure Performed: Robot-assisted bilateral inguinal hernia repair with mesh life care planner: Yes Associate Manager: James Lopez Tasks completed by faculty i on call medical assistant: Opening & closing and Trocar (Trocar insertion) Type of Anesthesia: General/Supplemental RN Documented Start/Stop Times: Operation Date: 04/04/25 07:30 Case Time Into Pre-Op 04/04/25 06:04 Out of Pre-Op 04/04/25 07:24 Anesthesia Start 04/04/25 07:28 Into Room 04/04/25 07:28 Procedure Start 04/04/25 08:01 Procedure End 04/04/25 13:15 Anesthesia End 04/04/25 13:27 Out of Room 04/04/25 13:27 Into Recovery 04/04/25 13:28 Into Phase II Recovery 04/04/25 14:33 Out of Recovery 04/04/25 14:33 Out of Phase II 04/04/25 16:55 Procedure Start Time: 08:01 Procedure Stop Time: 13:15 Select all DRAINS/GRAFTS/IMPLANTS that apply: None and Implanted device (Right 3D max mesh, left 3D max mid anatomic mesh) Implanted device details: Right reference [id number], Lot [id number] left reference [id number], Lot [id number] Estimated Blood Loss: 25 Specimen collected: Yes Description of specimen(s) removed: Left cord lipoma Description of surgery: After appropriate identification the preoperative holding area the patient was brought to the operating room where he was positioned supine on the operating table. Preoperative antibiotics were completed and the patient was administered a general anesthetic. Patient's abdomen was then prepped and draped in usual sterile fashion. Formal timeout followed to confirm patient and procedure. Procedure was begun with an optical entry facilitated by Veress insufflation at Oneil's point. Once pneumoperitoneum reached a set point pressure of 15 mmHg the Veress needle was withdrawn and a optical trocar was introduced through the same site revealing no inadvertent injury to the viscera below from our needle insertion. Next, a right paramedian incision was made and a 8 mm robotic trocar was placed with laparoscopic visualization. A third port was placed a hand's breath left of this port. Patient was positioned Trendelenburg and I performed a local block of the ilioinguinal nerves bilaterally using 8 mL local anesthetic under laparoscopic visualization. The robot was docked in standard fashion. In this positioning I could visualize a sizable direct defect and possible indirect defect on the right, however, although the left an adhesion between the sigmoid colon and the pelvic sidewall prevented me from seeing the myopectineal orifice. Robotically, a peritoneal flap was created on the right extending from the medial umbilical ligament to the level of the ASIS (external) and was bluntly dissected to expose the medial parietal compartment and lateral visceral compartments. Medially I could visualize the latter entering a very large direct inguinal hernia defect. Great care was used to provide posterior traction on the bladder as the anterior abdominal wall was swept anteriorly and gradually the bladder was fully extirpated from the hernia defect in a bloodless fashion. I then developed the space of Retzius further staying directly against the posterior rectus to minimize risk to the bladder. Laterally I dissected down to the level of the psoas musculature in the visceral compartment directly against the peritoneum. There was evidence of a smaller indirect hernia and this was fully reduced back from the structures of the spermatic cord until I was able to clearly visualize the inverted V by the splaying of the vas deferens medially and the spermatic vessels laterally. Just lateral to the spermatic vessels I did identify a small cord lipoma which I reduced and dissected off the spermatic cord. The peritoneal flap was inspected to ensure that cord was appropriately parietalized and there was no pulling of the cord structures or the viscera deeply over the psoas using the pull test. Then attention was turned to the patient's left side where there was some adherent sigmoid colon including a clear visual of the MPO anatomy. Once again a peritoneal flap was created on this side and dissection was carried down in similar fashion to Rao's ligament medially and laterally over the psoas at the same depth. As I proceeded with my dissection in the lateral visceral compartment I identified a very large cord lipoma that was dissected well back onto the psoas complex before it was amputated above the level of the spermatic vessels to avoid vascular injury. It was placed aside for later removal from the peritoneal cavity. More medially I did identify small indirect hernia sac which was dissected back from the spermatic vessels until I had appropriate posterior lateral dissection of my flap. More medially in the parietal compartment I examined for but did not find evidence of either a direct or femoral hernia. My dissection from the right was connected and the space of Retzius to an appropriate depth of approximately 2 cm deep to the pubic tubercle. Then 2 Bard 3D max, size extra-large large, meshes were placed into the abdomen along with suture. I opted for a regular weight mesh on the right side and a mid weight mesh for the left side. Prior to placing the right sided mesh I used a running 3-0 Vicryl suture to imbricate the transversalis fascia to Rao's ligament as a means of decreasing the risk for eventration of the mesh into this large direct defect. I was careful to remain vigilant for any signs of the ilioinguinal nerve anteriorly in this process. Each mesh was positioned within its respective preperitoneal pocket so that there was good medial and inferior overlap of the defects as well as the masses themselves, medially. I ended up trimming the superior margin of the right sided mesh as my peritoneal flap was not quite wide enough to accommodate this roughly 1 cm overlap. As I inspected and this preperitoneal pocket identified some thin yellow fluid which I grew concerned may represent urine and more broadly a possible bladder injury. Therefore I called my partner to the room for his inspection. Dr. Bright stated he did not have concerns for an injury based on what he saw but we elected to proceed with a test of the bladder anyhow. A Huitron catheter was inserted by the bedside nursing under drape using sterile technique. The bladder was then instilled with a dilute methylene blue solution until it reached full capacity. Laparoscopically this process was monitored but there is no signs of fluid extravasation in the operative field. Thus the Huitron catheter was allowed to drain for the balance of the case and released the bladder distention. With this confirmation, the overlap of the meshes was tacked to the admuniculum of the linea alba just superior to the pubic tubercle and laterally in a partial-thickness bite of the abdominal wall using a 3-0 Vicryl suture. Each peritoneal flap was then closed with a running 3-0 V-Loc suture taking care to conceal the barbs of the suture beneath the peritoneum. Unfortunately on the right side the peritoneal lining was quite attenuated and simply shredded with any attempts to bring it back together even while trying to maximally distribute the tension and decrease our peritoneal pressures. Ultimately I grew concerned for the potential for small bowel to contact the mesh in an undesirable adherence or for the colon to form an aperture through which the small bowel might eventrate and form a nidus for bowel obstruction. I sought a natural anatomic pedicle to cover this area over but found nothing locally available therefore decided to tack several of the epiploic fat appendages of the colon to the peritoneal edge and thereby exclude any bowel from that area. This process, carefully undertaken, appeared to accomplish its desired goal. With the formal portion of the operation complete the needles were sequentially removed from the peritoneal cavity and upon confirming a correct needle count, the pneumoperitoneum was evacuated before removing the trocars. The port sites were closed at the skin with running 4-0 Monocryl in a subcuticular fashion. Steri-Strips and OpSite's were used as dressings. Patient's testicles were confirmed within the scrotum. Patient was then awoken from anesthetic and transferred to PACU for ongoing recovery. Surgical Findings: ? Large segment of bladder and large direct type inguinal hernia ? Large right direct type inguinal hernia imbricated with running 3-0 Vicryl to close down transversalis fascia to Rao's ligament ? Testing of bladder with placement of Huitron catheter and instillation of methylene blue (negative). huitron removed prior to extubation ? Surety noted peritoneum on right with no available anatomical flap other than to tack epiploic of sigmoid colon to right pelvic brim peritoneum Complications Complications: No Admit VTE Documentation VTE Mechan Device Prophylaxis: SCD's
--- NOTE | 2025-04-04 13:10 | EX.PCM.DISCH ---
Discharge Instructions Diet Discharge Diet: No restrictions Activity Discharge Activity: May Not Drive (While taking narcotic pain medication) and May Shower May shower in (days): 2 Ice area for (Minutes): 20 Lifting Restrictions: No lifting greater than 10 pounds for the next 5 weeks Dressing / Incision Call your doctor if your incision/area has: Continuous Slow Oozing, Increased Pain/ Swelling, Increased Redness, Foul Smelling Discharge and Swelling at the incision site Call your doctor if you observe: Fever of 101 or Higher, Inability to urinate and Inability to have a bowel movement Change Dressing in: 2 days (Please leave Steri-Strips intact until they fall off spontaneously or are taken off at your follow-up visit) Remove Dressing in: 2 days Cleanse incision/area with: Soap & Water and Keep Dressing Clean & Dry Follow Up Care Please Follow Up With: Ketan Parry MD When: 10-14 days postop Test Results: Test results from this visit will be discussed in further detail at your follow-up appointment, if applicable. Discharge Plan Admission Primary Reason for Your Visit: Hernia repair Attending Provider: Ketan Parry Primary Care Provider: Guilherme Erickson Instructions Print Language: Montserratian Discharge Orders/Prescriptions Prescriptions: New oxycodone 5 mg tablet 5 mg PO Q6H PRN (Reason: pain) 3 Days Qty: 10 0RF Continued cholecalciferol (vitamin D3) 50 mcg (2,000 unit) capsule 50 mcg PO DAILY niacin 500 mg tablet 500 mg PO QODAY losartan 100 MG tablet 100 mg PO DAILY Patient Comments: BLOOD PRESSURE red yeast rice 600 MG capsule 600 mg PO DAILY levothyroxine 25 mcg tablet 25 mcg PO DAILY omeprazole 20 mg tablet,delayed release (DR/EC) 20 mg PO DAILY PRN (Reason: heartburn) super beets 1 gummy PO .qd Referrals / Follow Up: Guilherme Erickson MD [Primary Care Provider, Family Practice] Disposition Disposition (needs filled in before D/C Order can be placed): Home, Self Care
--- NOTE | 2025-04-04 13:33 | PCM.POST.ANE ---
Anesthesia: Postop Eval I Current Vital Signs Temperature: 97.6 F Pulse Rate: 80 Blood Pressure: 120/67 Respiratory Rate: 16 Pulse Ox: 93 Assessment Airway patent: Yes Spontaneous unlabored respirations: Yes nausea: No Vomiting: No Anesthesia Complication: No Fluid Hydration Crystalloid volume administer (ml): 1,800 Total IV fluid infused: 1,800 Progress Note Anesthesia document: Postop Eval 1 completed: Yes
--- NOTE | 2025-04-04 16:14 | POSTOPAN2_ITS ---
Anesthesia Postop Eval I Sum Postop Eval Completion status Anesthesia document: Postop Eval 1 completed: Yes Anesthesia Postop Eval I Summary Anesthesia Postop Eval I Summary: Anesthesia Postop Eval I: Assessment Summary Airway patent Yes 04/04/25 13:33 [email or web address] Spontaneous unlabored Yes 04/04/25 13:33 [email or web address] respirations Mental status nausea No 04/04/25 13:33 [email or web address] Vomiting No 04/04/25 13:33 [email or web address] Anesthesia Postop Eval I: Fluid Summary Crystalloid volume administer 1,800 04/04/25 13:33 [email or web address] (ml) Colloids volume administered ( ml) Blood Product volume administered (ml) Total IV fluid infused 1,800 04/04/25 13:33 [email or web address] Anesthesia Postop Eval I: Summary Notes Anesthesia Complication No 04/04/25 13:33 [email or web address] Anesthesia Complication Comment: Post-operative progress note Anesthesia: Postop Eval II Evaluation Mental status: Awake and Calm Pain Level: 0 nausea: No Vomiting: No Complications Anesthesia Complication: No
--- NOTE | 2025-04-04 16:14 | PCM.POSTANE2 ---
Anesthesia Postop Eval I Sum Postop Eval Completion status Anesthesia document: Postop Eval 1 completed: Yes Anesthesia Postop Eval I Summary Anesthesia Postop Eval I Summary: Anesthesia Postop Eval I: Assessment Summary Airway patent Yes 04/04/25 13:33 [email or web address] Spontaneous unlabored Yes 04/04/25 13:33 [email or web address] respirations Mental status nausea No 04/04/25 13:33 [email or web address] Vomiting No 04/04/25 13:33 [email or web address] Anesthesia Postop Eval I: Fluid Summary Crystalloid volume administer 1,800 04/04/25 13:33 [email or web address] (ml) Colloids volume administered ( ml) Blood Product volume administered (ml) Total IV fluid infused 1,800 04/04/25 13:33 [email or web address] Anesthesia Postop Eval I: Summary Notes Anesthesia Complication No 04/04/25 13:33 [email or web address] Anesthesia Complication Comment: Post-operative progress note Anesthesia: Postop Eval II Evaluation Mental status: Awake and Calm Pain Level: 0 nausea: No Vomiting: No Complications Anesthesia Complication: No
== END 2025-04-04 16:55 | disposition home or self-care (01) ==
LOC: SDC 05:58 → AC 06:00
PROVIDERS: PCP Family Medicine; Referring Provider Surgery; Visit Provider Surgery
PROC: (CPT 49650; principal; 2025-04-04 07:10)
DX: K40.20 Bilateral inguinal hernia, without obstruction or gangrene, not specified as recurrent (principal); K42.9 Umbilical hernia without obstruction or gangrene; K21.9 Gastro-esophageal reflux disease without esophagitis; D17.6 Benign lipomatous neoplasm of spermatic cord; I10 Essential (primary) hypertension; E03.9 Hypothyroidism, unspecified; Z79.899 Other long term (current) drug therapy
CPT/HCPCS: 49650; S2900; 00840; 36415; 80048; 84443; 88302; 88304; 93005; C1781; J2405